=== PATIENT | female | born 1955 | race Caucasian/White ===

== ENCOUNTER 2019-10-31 13:17 | Outpatient (CLI) | payer MEDICARE, SELFPAY ==
--- NOTE | 2019-10-31 13:19 | ECG_ITS ---
Measurements Intervals [place] Rate: 69 P: 47 NV: 172 QRS: 12 QRSD: 93 T: 57 QT: 392 QTc: 422 Interpretive Statements SINUS RHYTHM DELAYED PRECORDIAL R/S TRANSITION BASELINE ARTIFACT- I, II, III, AVR, AVL, AVF BORDERLINE ECG Electronically Signed On 10-31-2019 13:51:43 CDT by David Krause D.O.
[2019-10-31 13:36] LABS: Hematocrit 41.3 % (37.0-47.0)
[2019-10-31 13:49] LABS: Anion Gap 7 mmol/L (8-16); Blood Urea Nitrogen 12 mg/dL (7-17); Calcium 9.5 mg/dL (8.4-10.2); Carbon Dioxide 30 mmol/L (22-30); Chloride 99 mmol/L (98-107); Estimated Glomerular Filt Rate > 60; Glucose 135 mg/dL (65-105); Potassium 4.2 mmol/L (3.4-5.0); Sodium 136 mmol/L (137-145)
== END 2019-10-31 13:18 | disposition home or self-care (01) ==
PROVIDERS: Anesthesiology; PCP Internal Medicine; Visit Provider Obstetrics & Gynecology
DX: D64.9 Anemia, unspecified (principal); Z79.899 Other long term (current) drug therapy; Z72.0 Tobacco use; R94.31 Abnormal electrocardiogram [ECG] [EKG]
CPT/HCPCS: 36415; 80048; 85014; 85018; 93005

== ENCOUNTER 2019-11-02 00:32 | Outpatient (CLI) | payer MEDICARE, SELFPAY ==
[2019-11-02 19:29] LABS: SARS-CoV-2 RNA PCR Negative
== END 2019-11-02 00:33 | disposition home or self-care (01) ==
LOC: ANHCOVIDDT 00:32
PROVIDERS: PCP Internal Medicine; Visit Provider Obstetrics & Gynecology
DX: Z01.812 Encounter for preprocedural laboratory examination (principal); Z20.828 Contact with and (suspected) exposure to other viral communicable diseases
CPT/HCPCS: 87635; C9803; U0003

== ENCOUNTER 2019-11-05 00:45 | Day surgery (SDC) | payer MEDICARE, SELFPAY ==
[2019-10-29 15:20] VITALS: BMI 26.6
--- NOTE | 2019-11-04 09:58 | WPDANESEPPF ---
Anes - Initial Pre Proc Eval Procedure: Operation Date: 11/05/19 09:30 Proposed Procedures p Hysteroscopy with Biopsy of Endometrium, Polypectomy - Oliver Strickland MD Date/Time: 11/04/19 09:58 Surgeon: Oliver Strickland MD Pre Op Diagnosis: post menopausal bleeding Patient Data Age: 64 Gender: F Height: 1.63 m Weight: 70.31 kg Allergies Allergy/AdvReac Type Severity Reaction Status Date / Time codeine Allergy Unknown Itching Verified 11/05/19 07:39 Home Medications Medication Instructions Recorded Confirmed Type albuterol sulfate 2.5 mg INHALATION DIRECTED PRN 10/29/19 11/05/19 History alprazolam 1 mg PO QID PRN 10/29/19 11/05/19 History cholecalciferol (vitamin D3) 50 mcg PO DAILY 10/29/19 11/05/19 History [Vitamin D3] duloxetine 60 mg PO DAILY 10/29/19 11/05/19 History ferrous sulfate [iron] 325 mg PO DAILY 10/29/19 11/05/19 History furosemide [Lasix] 20 mg PO DAILY 10/29/19 11/05/19 History hydrocodone-acetaminophen 1 tablet PO QID 10/29/19 11/05/19 History lactase 1 - 2 tablet PO DIRECTED PRN 10/29/19 11/05/19 History levalbuterol tartrate 2 inh INHALATION DIRECTED PRN 10/29/19 11/05/19 History levothyroxine [Synthroid] 25 mcg PO DAILY 10/29/19 11/05/19 History linaclotide [Linzess] 145 mcg PO DAILY 10/29/19 11/05/19 History ondansetron HCl [Zofran] 4 mg PO Q6H PRN 10/29/19 11/05/19 History pramipexole 0.125 mg PO HS 10/29/19 11/05/19 History Patient hx anesthesia problems: none Family hx anesthesia problems: none [facility] Past Medical History Medical History (Updated 11/04/19 @ 09:58 by Zain Leslie DO) Anxiety Chronic, continuous use of opioids COPD (chronic obstructive pulmonary disease) Depression Fibromyalgia Hypothyroidism IBS (irritable bowel syndrome) Rheumatoid arthritis RLS (restless legs syndrome) Surgical History Surgical History (Updated 11/04/19 @ 09:58 by Zain Leslie DO) History of tubal ligation Family History Family History (Updated 11/10/17 @ 11:44 by DOCTOR UNKNOWN) Mother Family history of Parkinson's disease Sibling Family history of chronic obstructive pulmonary disease Social History Social History Smoking packs per day: 1.5 Smoking cigarettes per day: 30.0 Years smoked: 48 Smoking pack-years: 72.00 Smoking status: Current some day smoker Tobacco type: cigarettes Additional smoking assessment comments: QUIT SMOKING 4 YRS AGO, CURRENTLY USES VAPOR CIGAR[employer] Spiritual care concerns: No Anes - Eval Final PreProcedure Day of Procedure 11/04/19 09:58 Patient weight: overweight Heart: regular rate and rhythm Lungs: clear to auscultation and normal air movement Airway: Mallampati scale class II Neurological: alert and oriented Last oral intake: >/= 8 hours ASA classification: III Emergent: no Anesthetic plan: proceed Anesthesia type and monitoring: general GIVS and standard monitoring Informed Consent: The patient's anesthetic plan and its attendant risks and benefits were discussed with the patient/family/POA. Questions were solicited and answers provided to the satisfaction of the patient/family/POA.
[2019-11-05 07:32] VITALS: BP 134/75; PULSE 79; RESP 20; TEMP 36.1; O2SAT 98
[2019-11-05] MEDS: LACTATED RINGERS 1,000 ML 30 ML IV CONT ×2 (07:55→10:49)
--- NOTE | 2019-11-05 09:16 | WPDHPUPDATE1 ---
History and Physical Update Update Date/Time: 11/05/19 09:16 History and Physical has been reviewed, including an updated exam of the patient. There are NO changes in the patient's condition. Risks, benefits, and alternatives have been discussed and questions answered. Patient agrees to proceed with procedure.
[2019-11-05] MEDS: ceFAZolin 2 GM/D5W 50 ML 2 GM/50 ML BAG IVPB (09:31)
--- NOTE | 2019-11-05 10:45 | SUR.OPER ---
EBL 25 ml (hysteroscopy- 900 ml of NS in 800 ml of NS out)
[2019-11-05 10:55] VITALS: BP 156/83; PULSE 83; RESP 22; TEMP 36.1; O2SAT 100
--- NOTE | 2019-11-05 11:04 | PM.PROC ---
Procedure Note - Detailed Date of procedure: 11/05/19 Pre-op diagnosis: post menopausal bleeding abnormal endometrium Post-op diagnosis: other ( hematometra) Procedure performed: Hysteroscopy D&C, adhesiolysis-45 minutes Description of procedure: The patient was taken the operating room. She was prepped and draped in the dorsal lithotomy position after induction of mac anesthesia. A speculum was placed in the vagina. The cervix grasped with a tenaculum. Extensive adhesiolysis was performed along the surface of the vaginal apex and the cervix. It was performed with Metzenbaum scissors. Stay sutures were placed in the vaginal cuff to make this cervix more accessible. Dissection was performed around the palpable cervix and the cervix was isolated. The cervix was then bifurcated partially. The hysteroscope was inserted the intrauterine cavity and the above findings were noted. A medium-size curette was then used to curettage all surfaces within the endometrial cavity. The endometrial curettings were collected on a Telfa. There were submitted to the pathology department. Hysteroscope was reinserted the intrauterine cavity to re-examine the endometrial surfaces. The hysteroscope was withdrawn. The tenaculum was removed. The speculum was removed. The patient tolerated the procedure well. She was taken recovery room stable condition. Sponge lap needle counts were correct x2. Anesthesia: MAC Surgeon: Oliver Strickland MD Estimated blood loss (mL): 25 Drains: No Packing: No Pathology: yes Complications: No immediate complications Condition: stable Disposition: PACU Findings: dense scarring over the surface of the cervix and vaginal apex. , normal appearing endometrial cavity, hematometra
[2019-11-05 11:10] VITALS: BP 159/75; PULSE 69; RESP 12; O2SAT 100
[2019-11-05 11:25] VITALS: BP 150/83; PULSE 61; RESP 12; O2SAT 98
[2019-11-05 11:50] VITALS: BP 147/66; PULSE 74; RESP 14
[2019-11-05 12:20] VITALS: BP 145/69; PULSE 75; RESP 14
== END 2019-11-05 12:26 | disposition home or self-care (01) ==
PROVIDERS: PCP Internal Medicine; Visit Provider Obstetrics & Gynecology
PROC: 0U5B8ZZ Destruction of Endometrium, Via Natural or Artificial Opening Endoscopic (ICD-10-PCS; CPT 58563; principal; 2019-11-05 09:30)
DX: N95.0 Postmenopausal bleeding (principal); N73.6 Female pelvic peritoneal adhesions (postinfective); M06.9 Rheumatoid arthritis, unspecified; M85.80 Other specified disorders of bone density and structure, unspecified site; F41.9 Anxiety disorder, unspecified
CPT/HCPCS: 58558; 88305; A9270; J0330; J0690; J1100; J2250; J2405; J2704; J2765; J3010; J7030; J7120

== ENCOUNTER 2019-12-16 06:53 | Outpatient (NON) | payer MEDICARE, SELFPAY ==
[2019-12-16 21:51] LABS: SARS-CoV-2 RNA PCR Negative
== END 2019-12-16 06:54 ==
PROVIDERS: PCP Internal Medicine
DX: Z20.828 Contact with and (suspected) exposure to other viral communicable diseases (principal)
CPT/HCPCS: 87635; C9803; U0003

== ENCOUNTER 2020-01-20 06:55 | Outpatient (NON) | payer MEDICARE, SELFPAY ==
[2020-01-21 01:07] LABS: SARS-CoV-2 RNA PCR Negative
== END 2020-01-20 06:56 ==
LOC: ANHCOVIDDT 06:58
PROVIDERS: PCP Internal Medicine; Visit Provider Orthopaedic Surgery
DX: Z01.818 Encounter for other preprocedural examination (principal); Z20.828 Contact with and (suspected) exposure to other viral communicable diseases
CPT/HCPCS: 87635; C9803; U0003

== ENCOUNTER 2020-02-20 08:15 | Outpatient (CLI) | payer MEDICARE, SELFPAY ==
--- NOTE | 2020-02-20 11:30 | NEURO_ITS ---
Impression: # Complains of pain in feet. Not diabetic. # Normal nerve conduction study with symmetrical distal latencies. # Normal needle/EMG exam. # Clinical correlation recommended. Nerve Conduction Studies Anti Sensory Summary Table Stim Site NR Peak (ms) P-T Amp (?V) Site1 Site2 Delta-P (ms) Dist (cm) Oumar (m/s) Left Sup Fibular Anti Sensory (Ant Lat Mall) 14 cm 3.9 6.5 14 cm Ant Lat Mall 3.9 16.0 41 Right Sup Fibular Anti Sensory (Ant Lat Mall) 14 cm 3.2 17.3 14 cm Ant Lat Mall 3.2 16.0 50 Left Sural Anti Sensory (Lat Mall) Calf 3.7 18.3 Calf Lat Mall 3.7 16.0 43 Right Sural Anti Sensory (Lat Mall) Calf 4.0 9.3 Calf Lat Mall 4.0 17.0 43 Motor Summary Table Stim Site NR Onset (ms) O-P Amp (mV) Site1 Site2 Delta-0 (ms) Dist (cm) Oumar (m/s) Left Peroneal Motor (Vastus Med) Ankle 4.9 2.0 Popit Ankle 8.3 37.0 45 Popit 13.2 0.9 Right Peroneal Motor (Vastus Med) Ankle 4.6 3.6 Popit Ankle 8.6 38.0 44 Popit 13.2 2.3 Left Tibial Motor (Abd Hilario Brev) Ankle 4.1 0.5 Knee Ankle 8.7 39.0 45 Knee 12.8 1.6 Right Tibial Motor (Abd Hilario Brev) Ankle 4.2 3.7 Knee Ankle 8.9 39.0 44 Knee 13.1 2.2 F Wave Studies NR F-Lat (ms) L-R F-Lat (ms) Left Peroneal (Mrkrs) (EDB) 51.85 0.66 Right Peroneal (Mrkrs) (EDB) 52.50 0.66 Left Tibial (Mrkrs) (Abd Hallucis) 53.89 0.76 Right Tibial (Mrkrs) (Abd Hallucis) 53.13 0.76 EMG Side Muscle Nerve Root Ins Act Fibs Amp Dur Recrt Comment Right AntTibialis Dp Br Fibular L4-5 Nml Nml Nml Nml Nml Right Gastroc Tibial S1-2 Nml Nml Nml Nml Nml Right Fibularis Long Sup Br Fibular L5-S1 Nml Nml Nml Nml Nml Right Flex Dig Long Tibial L5-S2 Nml Nml Nml Nml Nml Right Ext Dig Brev Dp Br Fibular L5, S1 Nml Nml Nml Nml Nml Left AntTibialis Dp Br Fibular L4-5 Nml Nml Nml Nml Nml Left Gastroc Tibial S1-2 Nml Nml Nml Nml Nml Left Fibularis Long Sup Br Fibular L5-S1 Nml Nml Nml Nml Nml Left Flex Dig Long Tibial L5-S2 Nml Nml Nml Nml Nml Left Ext Dig Brev Dp Br Fibular L5, S1 Nml Nml Nml Nml Nml MTDD
== END 2020-02-20 08:16 | disposition home or self-care (01) ==
LOC: ANHNEURO 08:17
PROVIDERS: PCP Internal Medicine; Visit Provider Psychiatry & Neurology Neurology
DX: G25.81 Restless legs syndrome (principal); M54.9 Dorsalgia, unspecified
CPT/HCPCS: 95886; 95910

== ENCOUNTER 2020-05-06 15:24 | Outpatient (CLI) | payer MEDICARE, SELFPAY ==
[2020-05-06 18:57] LABS: Iron 82 ug/dL (37-170)
== END 2020-05-06 15:25 | disposition home or self-care (01) ==
PROVIDERS: PCP Internal Medicine
DX: E61.1 Iron deficiency (principal); Z87.891 Personal history of nicotine dependence
CPT/HCPCS: 36415; 83540

== ENCOUNTER → 2020-12-29 04:31 | Outpatient (CLI) | payer MEDICARE, SELFPAY ==
[2020-12-30 19:26] LABS: SARS-CoV-2 RNA PCR Negative
== END ==
PROVIDERS: PCP Internal Medicine; Visit Provider Internal Medicine
DX: R05.9 Cough, unspecified (principal); Z20.822 Contact with and (suspected) exposure to COVID-19
CPT/HCPCS: C9803; U0003; U0005

== ENCOUNTER → 2021-04-10 00:14 | Outpatient (CLI) | payer MEDICARE, SELFPAY ==
[2021-04-10 17:11] LABS: SARS-CoV-2 RNA PCR Negative
== END ==
PROVIDERS: PCP Internal Medicine; Visit Provider Internal Medicine Pulmonary Disease
DX: Z01.812 Encounter for preprocedural laboratory examination (principal); Z20.822 Contact with and (suspected) exposure to COVID-19
CPT/HCPCS: C9803; U0003; U0005

== ENCOUNTER 2021-08-13 10:07 | Outpatient (CLI) | payer MEDICARE, SELFPAY ==
--- NOTE | 2021-08-13 11:30 | NEURO_ITS ---
PATIENT NUMBER; [id number] IMPRESSION: # Known to have rheumatoid arthritisi developing muscle weakness. # Left Carpal tunnel syndrome. # Right ulnar neuropathy across the elbow. Nerve Conduction Studies Anti Sensory Summary Table Stim Site NR Peak (ms) P-T Amp (?V) Site1 Site2 Delta-P (ms) Dist (cm) Oumar (m/s) Left Median Anti Sensory (2-3nd Digit) Wrist 3.1 106.9 Wrist 2-3nd Digit 3.1 14.0 45 Wrist 3.1 19.1 Wrist 2-3nd Digit 3.1 14.0 45 Right Median Anti Sensory (2-3nd Digit) Wrist 3.1 118.2 Wrist 2-3nd Digit 3.1 14.0 45 Wrist 3.8 20.8 Wrist 2-3nd Digit 3.1 14.0 45 Left Radial Anti Sensory (Base 1st Digit) Wrist 2.0 23.2 Wrist Base 1st Digit 2.0 0.0 Right Radial Anti Sensory (Base 1st Digit) Wrist 2.7 14.2 Wrist Base 1st Digit 2.7 0.0 Left Ulnar Anti Sensory (5th Digit) Wrist 2.9 6.8 Wrist 5th Digit 2.9 14.0 48 Right Ulnar Anti Sensory (5th Digit) Wrist 2.3 42.0 Wrist 5th Digit 2.3 14.0 61 Motor Summary Table Stim Site NR Onset (ms) O-P Amp (mV) Site1 Site2 Delta-0 (ms) Dist (cm) Oumar (m/s) Left Median Motor (Abd Poll Brev) Wrist 4.7 1.5 Elbow Wrist 4.3 28.0 65 Elbow 9.0 1.5 Right Median Motor (Abd Poll Brev) Wrist 3.6 2.0 Elbow Wrist 4.1 27.0 66 Elbow 7.7 1.1 Left Ulnar Motor (Abd Dig Minimi) Wrist 2.5 4.4 A Elbow Wrist 4.8 28.0 58 A Elbow 7.3 4.0 Right Ulnar Motor (Abd Dig Minimi) Wrist 2.7 3.9 A Elbow Wrist 5.7 29.0 51 A Elbow 8.4 3.1 B Elbow Wrist 3.6 18.0 50 B Elbow 6.3 3.4 F Wave Studies NR F-Lat (ms) L-R F-Lat (ms) Left Median (Mrkrs) (Abd Poll Brev) 29.53 0.12 Right Median (Mrkrs) (Abd Poll Brev) 29.42 0.12 Left Ulnar (Mrkrs) (Abd Dig Min) 27.86 0.03 Right Ulnar (Mrkrs) (Abd Dig Min) 27.89 0.03 EMG Side Muscle Nerve Root Ins Act Fibs Amp Dur Recrt Comment Right 1stDorInt Ulnar C8-T1 Nml Nml Nml Nml Nml Right Ext Indicis Radial (Post Int) C7-8 Nml Nml Nml Nml Nml Right Ext Digitorum Radial (Post Int) C7-8 Nml Nml Nml Nml Nml Right BrachioRad Radial C5-6 Nml Nml Nml Nml Nml Right PronatorTeres Median C6-7 Nml Nml Nml Nml Nml Right Abd Poll Brev Median C8-T1 Nml Nml Nml Nml Nml Left 1stDorInt Ulnar C8-T1 Nml Nml Nml >12ms Reduced Left Ext Indicis Radial (Post Int) C7-8 Nml Nml Nml Nml Nml Left Ext Digitorum Radial (Post Int) C7-8 Nml Nml Nml Nml Nml Left BrachioRad Radial C5-6 Nml Nml Nml Nml Nml Left PronatorTeres Median C6-7 Nml Nml Nml Nml Nml Left Abd Poll Brev Median C8-T1 Nml Nml Nml >12ms Reduced MTDD
== END 2021-08-13 10:08 | disposition home or self-care (01) ==
LOC: ANHNEURO 10:08
PROVIDERS: PCP Internal Medicine; Visit Provider Internal Medicine
DX: R20.2 Paresthesia of skin (principal); G56.02 Carpal tunnel syndrome, left upper limb; G56.21 Lesion of ulnar nerve, right upper limb
CPT/HCPCS: 95886; 95911

== ENCOUNTER 2021-09-08 08:28 | Outpatient (CLI) | payer MEDICARE, SELFPAY ==
--- NOTE | ~2021-09-08 | NM_ITS ---
EXAM: NM gastric emptying study DATE: 09/08/2021 13:37 INDICATION: Nausea and vomiting TECHNIQUE: A gastric emptying study was performed using the methodology of Shreyas GRAHAM, et al. J Nucl Med 2007; 48:568-572. The patient was given a meal consisting of 2 scrambled eggs labeled with 0.874 mCi Tc-99m sulfur colloid, 2 slices of toast, two packages of jam, and approximately 120 mL of water . Simultaneous anterior and posterior 1-min images of the abdomen were obtained with the patient supi ne at multiple time points over a total period of 4 hours. The geometric mean of anterior and posteri or views was determined, and the percentage retention was calculated for each time point. COMPARISON: None. FINDINGS: Gastric retention of the radiotracer-labeled meal was 79%, 28%, and 2% at the 1-hour, 2-hour, and 4-h our time points, respectively. With this technique, apparent rapid gastric emptying is suggested by < 30% gastric retention at 1 hour. Delayed gastric emptying is defined by gastric retention of >90% at 1 hour, >60% retention at 2 hours, or >10% retention at 4 hours. IMPRESSION: 1. Normal gastric emptying. Reviewed, dictated and finalized at location A. IMPRESSION: 1. Normal gastric emptying.
== END 2021-09-08 08:29 | disposition home or self-care (01) ==
PROVIDERS: PCP Internal Medicine; Visit Provider Nurse Practitioner
DX: R11.2 Nausea with vomiting, unspecified (principal); R68.81 Early satiety; K59.09 Other constipation; R14.0 Abdominal distension (gaseous)
CPT/HCPCS: 78264; A9541

== ENCOUNTER 2021-09-15 01:04 | Day surgery (SDC) | payer MEDICARE, SELFPAY ==
[2021-09-03 10:00] VITALS: BMI 23.3
--- NOTE | 2021-09-14 15:01 | PM.HPGS ---
History of Present Illness History of Present Illness Consent: Risks, benefits, and alternatives have been discussed and questions answered. Patient agrees to proceed with procedure. Chief complaint: nausea, vomiting, early satiety Narrative: Alta Vargas is a 66 year old female ?who has a past medical history of rheumatoid arthritis, chronic pain syndrome, spinal stenosis, lung nodule (thought likely cancer-awaiting to be scheduled for lung biopsy), cholecystectomy, tubal ligation, IBS constipation predominant, COPD, hypothyroidism, and diabetes.? She states several months ago she began having intermittent nausea and vomiting and over the last several weeks that has progressively worsened.? She went to the ER at [facility] a few weeks ago. They did not give her diagnosis.? She is taking omeprazole 40 mg per day. She states they did a CT scan and the told that there was: Urine back up and a UTI which she was treated for.? She was having diarrhea but that has since resolved.? She is having nausea daily and vomiting a few times per week typically after eating.? She reports early satiety and postprandial bloating.? She states that she has lost about 50 lb in the last 6 months. Review of Systems Review of Systems: All systems reviewed & are unremarkable except as noted in HPI and below PMFSH Past Medical History Medical History Anxiety Bloating Chronic, continuous use of opioids COPD (chronic obstructive pulmonary disease) Depression Diabetes Early satiety Fibromyalgia Hypothyroidism IBS (irritable bowel syndrome) Nausea and vomiting Rheumatoid arthritis Rheumatoid arthritis RLS (restless legs syndrome) Surgical History Surgical History History of tubal ligation Hx of cholecystectomy Family History Family History Mother Family history of Parkinson's disease Sibling Family history of chronic obstructive pulmonary disease Social History Social History Smoking packs per day: 1.5 Smoking cigarettes per day: 30.0 Years smoked: 48 Smoking pack-years: 72.00 Smoking status: Former smoker Tobacco type: cigarettes and e-cigarettes/vaping Additional smoking assessment comments: quit smoking cigarettes 4 years ago, still vapes Alcohol intake: never Substance use: never Substance use type: does not use Living arrangements: with family Additional living arrangements comments: lives with daughter and grandson Spiritual care concerns: No Meds Home Medications and Allergies Home Medications Medication Instructions Recorded Confirmed Type albuterol sulfate 2.5 mg/3 mL 2.5 mg inhalation DIRECTED PRN 10/29/19 09/15/21 History (0.083 %) solution for nebulization Shortness Of Breath cholecalciferol (vitamin D3) 50 50 mcg PO DAILY 10/29/19 09/15/21 History mcg (2,000 unit) capsule (Vitamin D3) ferrous sulfate 325 mg (65 mg 325 mg PO DAILY 10/29/19 09/15/21 History iron) tablet (iron) ondansetron HCl 4 mg tablet 4 mg PO Q6H PRN Nausea 10/29/19 09/15/21 History (Zofran) alprazolam 1 mg tablet (Xanax) 1 mg PO TID PRN Anxiety 05/13/20 09/15/21 History duloxetine 60 mg capsule,delayed 60 mg PO DAILY 05/13/20 09/15/21 History release (Cymbalta) hydrocodone 7.5 mg-acetaminophen 1 tablet PO QHS PRN Pain 07/15/21 09/15/21 History 325 mg tablet levothyroxine 75 mcg tablet 75 mcg PO DAILY 07/15/21 09/15/21 History (Synthroid) pramipexole 0.125 mg tablet 0.125 mg PO HS 07/15/21 09/15/21 History omeprazole 40 mg capsule,delayed 40 mg PO DAILY #30 caps 08/30/21 09/15/21 Rx release Allergies Allergy/AdvReac Type Severity Reaction Status Date / Time codeine Allergy Unknown Itching Verified 09/15/21 10:44 Exam Const: General: alert Orientation/conscio
[2021-09-15 10:46] VITALS: BP 114/80; PULSE 72; RESP 18; TEMP 36.7; O2SAT 99
--- NOTE | 2021-09-15 10:46 | WPDANESEPPF ---
Anes - Initial Pre Proc Eval Procedure: Operation Date: 09/15/21 12:30 Proposed Procedures p Esophagogastroduodenoscopy - Ambrocio Bear MD Date/Time: 09/15/21 10:46 Surgeon: Ambrocio Bear MD Pre Op Diagnosis: nausea, vomiting, early satiety Patient Data Age: 66 Gender: F Height: 1.63 m Weight: 61.5 kg Allergies Allergy/AdvReac Type Severity Reaction Status Date / Time codeine Allergy Unknown Itching Verified 09/15/21 10:44 Home Medications Medication Instructions Recorded Confirmed Type albuterol sulfate 2.5 mg/3 mL 2.5 mg inhalation DIRECTED PRN 10/29/19 09/15/21 History (0.083 %) solution for nebulization Shortness Of Breath cholecalciferol (vitamin D3) 50 50 mcg PO DAILY 10/29/19 09/15/21 History mcg (2,000 unit) capsule (Vitamin D3) ferrous sulfate 325 mg (65 mg 325 mg PO DAILY 10/29/19 09/15/21 History iron) tablet (iron) ondansetron HCl 4 mg tablet 4 mg PO Q6H PRN Nausea 10/29/19 09/15/21 History (Zofran) alprazolam 1 mg tablet (Xanax) 1 mg PO TID PRN Anxiety 05/13/20 09/15/21 History duloxetine 60 mg capsule,delayed 60 mg PO DAILY 05/13/20 09/15/21 History release (Cymbalta) hydrocodone 7.5 mg-acetaminophen 1 tablet PO QHS PRN Pain 07/15/21 09/15/21 History 325 mg tablet levothyroxine 75 mcg tablet 75 mcg PO DAILY 07/15/21 09/15/21 History (Synthroid) pramipexole 0.125 mg tablet 0.125 mg PO HS 07/15/21 09/15/21 History omeprazole 40 mg capsule,delayed 40 mg PO DAILY #30 caps 08/30/21 09/15/21 Rx release Patient hx anesthesia problems: none Family hx anesthesia problems: none Results Review: All pre-operative results and documents have been reviewed as part of the pre-operative evaluation. REPLACED BY [facility] Past Medical History Medical History Anxiety Bloating Chronic, continuous use of opioids COPD (chronic obstructive pulmonary disease) Depression Diabetes Early satiety Fibromyalgia Hypothyroidism IBS (irritable bowel syndrome) Nausea and vomiting Rheumatoid arthritis Rheumatoid arthritis RLS (restless legs syndrome) Surgical History Surgical History History of tubal ligation Hx of cholecystectomy Family History Family History Mother Family history of Parkinson's disease Sibling Family history of chronic obstructive pulmonary disease Social History Social History Smoking packs per day: 1.5 Smoking cigarettes per day: 30.0 Years smoked: 48 Smoking pack-years: 72.00 Smoking status: Former smoker Tobacco type: cigarettes and e-cigarettes/vaping Additional smoking assessment comments: quit smoking cigarettes 4 years ago, still vapes Alcohol intake: never Substance use: never Substance use type: does not use Living arrangements: with family Additional living arrangements comments: lives with daughter and grandson Spiritual care concerns: No Anes - Eval Final PreProcedure Day of Procedure 09/15/21 10:46 Patient weight: normal Heart: regular rate and rhythm Lungs: decreased breath sounds Airway: Mallampati scale class II Neurological: alert and oriented Last oral intake: >/= 8 hours ASA classification: III Emergent: no Anesthetic plan: proceed Anesthesia type and monitoring: general GIVS and standard monitoring Results Review: All pre-operative results and documents have been reviewed as part of the pre-operative evaluation. Informed Consent: The patient's anesthetic plan and its attendant risks and benefits were discussed with the patient/family/POA. Questions were solicited and answers provided to the satisfaction of the patient/family/POA.
[2021-09-15] MEDS: LACTATED RINGERS 1,000 ML 150 ML IV CONT (10:57)
[2021-09-15] MEDS: BENZOCAINE (*SP) 60 ML SPRAY CAN (HURRICAINE) 1 SPRAY MUCOUS MEM (11:23)
[2021-09-15 11:32] VITALS: BP 104/81; PULSE 66; RESP 19; O2SAT 100
[2021-09-15 11:42] VITALS: BP 91/52; PULSE 71; RESP 19; O2SAT 100
[2021-09-15 11:52] VITALS: BP 112/64; PULSE 65; RESP 20; O2SAT 100
== END 2021-09-15 12:01 | disposition home or self-care (01) ==
PROVIDERS: PCP Internal Medicine; Visit Provider Internal Medicine Gastroenterology
PROC: 0DJ08ZZ Inspection of Upper Intestinal Tract, Via Natural or Artificial Opening Endoscopic (ICD-10-PCS; CPT 43235; principal; 2021-09-15 12:30)
DX: R11.2 Nausea with vomiting, unspecified (principal); K21.9 Gastro-esophageal reflux disease without esophagitis; K29.70 Gastritis, unspecified, without bleeding; R63.4 Abnormal weight loss; Z79.51 Long term (current) use of inhaled steroids; E03.9 Hypothyroidism, unspecified; F41.9 Anxiety disorder, unspecified; F32.A Depression, unspecified; J44.9 Chronic obstructive pulmonary disease, unspecified; E11.9 Type 2 diabetes mellitus without complications; M79.7 Fibromyalgia; K58.9 Irritable bowel syndrome, unspecified; M06.9 Rheumatoid arthritis, unspecified; G25.81 Restless legs syndrome; Z90.49 Acquired absence of other specified parts of digestive tract; Z87.891 Personal history of nicotine dependence
CPT/HCPCS: 43239; 87081; 88305; J2704; J7120

== ENCOUNTER 2021-11-02 09:36 | Outpatient (CLI) | payer MEDICARE, MEDICAID, SELFPAY ==
--- NOTE | ~2021-11-02 | XR_ITS ---
EXAMINATION: XR small bowel follow through DATE: 11/02/2021 12:17 INDICATION: Nausea, vomiting and diarrhea TECHNIQUE: Cable Testers Helper radiograph(s) of the abdomen was/were obtained. Oral contrast was administered, and sequential radiographs of the abdomen were obtained until oral contrast was noted to be in the proxi mal colon. Spot fluoroscopic images of the small bowel were obtained. Fluoroscopy exposure time was 1 .6 minutes. A total of 9 fluoroscopic images and 7 overhead radiographs were obtained. COMPARISON: None. FINDINGS: Normal bowel gas pattern with no dilated loops of bowel on the occupational health specialist radiograph. Transit time from th e stomach to proximal colon was approximately 90-120 minutes. There is normal caliber and mucosal fol d pattern throughout the small bowel. Terminal ileum is unable to be clearly distinguished on real-ti me fluoroscopy from the additional superimposed ileum in the right lower quadrant however no irregula r appearing bowel loops are identified at this location. No tethering or abnormal mass effect observe d upon the small bowel with real-time fluoroscopy. IMPRESSION: 1. Normal small bowel follow-through. Reviewed, dictated and finalized at location A.
== END 2021-11-02 09:37 | disposition home or self-care (01) ==
PROVIDERS: PCP Internal Medicine; Visit Provider Nurse Practitioner
DX: R11.2 Nausea with vomiting, unspecified (principal)
CPT/HCPCS: 74250

== ENCOUNTER 2022-04-18 10:52 | Outpatient (CLI) | payer MEDICARE, MEDICAID, SELFPAY ==
--- NOTE | ~2022-04-18 | US_ITS ---
Duplex Sonography of the left extremity: Indication: Swelling Findings: Sagittal and transverse B-mode images as well as color-flow imaging were performed on the l eft femoral and popliteal veins. B-mode examination was done without and with compression in the tra nsverse plane. There is good visualization of the common femoral, proximal profunda femoral, superfi cial femoral, greater saphenous, and popliteal veins. Normal flow was seen on color-flow imaging. No rmal compressibility was demonstrated. Posterior tibial and peroneal veins are also patent. Impression: No evidence of deep vein thrombosis involving the left lower extremity. Reviewed, dictated and finalized at location M. ON [facility] Impression: No evidence of deep vein thrombosis involving the left lower extremity.
== END 2022-04-18 10:53 | disposition home or self-care (01) ==
PROVIDERS: Visit Provider Orthopaedic Surgery
DX: R22.42 Localized swelling, mass and lump, left lower limb (principal)
CPT/HCPCS: 93971

== ENCOUNTER 2022-09-04 22:28 | Emergency (ER) | payer MEDICARE, MEDICAID, SELFPAY ==
--- NOTE | ~2022-09-04 | XR_ITS ---
Portable chest x-ray Comparison: 02/10/2016 Clinical History: Flank pain Findings: Lungs are clear, without focal consolidation or pleural effusion. Cardiomediastinal silho uette is stable. Bones and soft tissues are unremarkable. Impression: Clear lungs. Reviewed, dictated and finalized at location . Impression: Clear lungs.
--- NOTE | ~2022-09-04 | CT_ITS ---
Non-contrast CT scan of the Abdomen and Pelvis Clinical indication: Right flank pain Technique: 2.5 mm axial scans were obtained through the abdomen and pelvis without intravenous or or al contrast. Dose reduction technique was used on this scan by utilizing automated exposure control a nd iterative reconstruction technique. The dose-length product (DLP) was 403.90 mGy-cm. Findings: Images through the lung bases reveal no abnormalities. There is no evidence of renal or ureteral calculi. The kidneys and the ureters are nondilated. The liver, spleen, pancreas, and adrenals appear normal. Status post cholecystectomy. There are ather osclerotic calcifications of the aorta. There is no evidence of bowel obstruction. Normal appendix. Images through the pelvis were performed. There is no evidence of ascites or lymphadenopathy. Urinary bladder unremarkable. No adnexal mass seen. No ascites. L2 compression fracture noted. Impression: L2 compression fracture, somewhat age indeterminate. No other significant findings. Reviewed, dictated and finalized at [facility]. Impression: L2 compression fracture, somewhat age indeterminate. No other significant findings.
[2022-09-04 22:30] VITALS: BP 157/75; PULSE 84; RESP 19; TEMP 36.4; O2SAT 97
[2022-09-04 23:34] VITALS: BP 131/77; PULSE 72; RESP 14; TEMP 36.6; O2SAT 98
[2022-09-04] MEDS: SODIUM CHLORIDE 0.9% IV 1,000 ML 999 ML IV CONT (23:42)
[2022-09-04 23:57] LABS: Basophils Percent Auto 0.3 % (0.2-1.2); Eosinophils Absolute Auto 0.2 K/mm3 (0-0.3); Eosinophils Percent Auto 1.4 % (0-4.4); Hematocrit 35.7 % (37.0-47.0); Hemoglobin 10.7 g/dL (12.0-15.0); Immature Granulocyte Absolute 0.14 K/mm3 (0.00-0.031); Lymphocytes Absolute Auto 3.15 K/mm3 (0.9-3.2); Lymphocytes Percent Auto 23.2 % (18.3-44.2); Mean Corpuscular Hemoglobin 25.1 pg (26-34); Mean Corpuscular Volume 83.6 fl (80-100); Mean Platelet Volume 8.6 fl (7.4-10.4); Monocytes Absolute Auto 1.3 K/mm3 (0.1-0.6); Monocytes Percent Auto 9.6 % (2.6-8.5); Neutrophils Absolute Auto 8.7 K/mm3 (1.3-6.7); Neutrophils Percent Auto 64.5 % (45.5-73.1); Platelet Count Result 289 k/mm3 (150-375); Red Blood Count 4.27 M/mm3 (4.2-5.4); Red Cell Distribution Width 15.6 % (11.5-14.5); White Blood Count 13.6 K/mm3 (4.5-10.0)
--- NOTE | 2022-09-05 | ECG_ITS ---
Measurements Intervals [place] Rate: 67 P: 41 TN: 156 QRS: 7 QRSD: 93 T: 40 QT: 412 QTc: 435 Interpretive Statements SINUS RHYTHM WITH OCCASIONAL SUPRAVENTRICULAR PREMATURE COMPLEXES ABNORMAL ECG COMPARED TO ECG 10/31/2019 13:50:22 NO SIGNIFICANT CHANGES Electronically Signed On 09-05-2022 10:39:04 CDT by Serg English M.D.
[2022-09-05 00:05] LABS: Appearance Urine Clear (Clear); Bacteria Urine None Seen /hpf; Bilirubin Urine Negative (Negative); Blood Urine Trace (Negative); Color Urine Yellow (Yellow); Glucose Urine UA Negative (Negative); Ketones Urine Negative (Negative); Leukocyte Esterase Ur 1+ LEU/UL (Negative); Nitrate Urine Negative (Negative); Non Pathogenic Casts 0-2; Protein Urine Negative (Negative); RBC Urine 0-2 /hpf (0-2); Specific Grav Ur 1.012 (1.001-1.035); Squamous Epithelial Cell Urine None seen /hpf (Few); Urobilinogen Urine 0.2 mg/dL (<2.0); pH Urine 5.5 (5.0-9.0)
--- NOTE | 2022-09-05 00:10 | ED.GENADULT ---
HPI - General Adult General Chief complaint: Back Pain/Injury Stated complaint: rib pain Time Seen by Provider: 09/04/22 22:44 History of Present Illness HPI narrative: This is a 66-year-old female presenting with a chief complaint of abdominal/rib pain for the last 2 weeks. She says the along the top of her abdomen and circumferential. It is an achy/ spasming pain that comes and waves. It is 8 out 10 intensity. She has never experienced pain like this before. Is worse with movement. Exacerbating symptoms. No fever chills chest pain difficulty breathing, nausea vomiting or diarrhea. In fact patient is constipated. Patient takes 15 mg of morphine b.i.d., methadone 5 mg t.i.d., Motrin and Tylenol and Flexeril for pain which is not been helping. Patient was seen at an outside hospital 4 days ago and was discharged with Flexeril. Related Data Home Medications Medication Instructions Recorded Confirmed cholecalciferol (vitamin D3) 50 50 mcg PO DAILY 10/29/19 11/30/21 mcg (2,000 unit) capsule (Vitamin D3) duloxetine 60 mg capsule,delayed 60 mg PO DAILY 05/13/20 11/30/21 release (Cymbalta) hydrocodone 7.5 mg-acetaminophen 1 tablet PO QHS PRN Pain 07/15/21 11/30/21 325 mg tablet levothyroxine 75 mcg tablet 75 mcg PO DAILY 07/15/21 11/30/21 (Synthroid) cyanocobalamin (vitamin B-12) 100 mcg subcut WEEKLY 11/30/21 11/30/21 1,000 mcg/mL injection kit ([employer] EZ Use B-12) semaglutide 1 mg/dose (4 mg/3 mL) 1 mg subcut WEEKLY 11/30/21 11/30/21 subcutaneous pen injector (Ozempic) Allergies Allergy/AdvReac Type Severity Reaction Status Date / Time codeine Allergy Unknown Itching Verified 02/15/22 14:45 PMFSH Past Medical History Medical History Anxiety Bloating Chronic, continuous use of opioids COPD (chronic obstructive pulmonary disease) Depression Diabetes Early satiety Fibromyalgia Gastritis determined by endoscopy Hypothyroidism IBS (irritable bowel syndrome) Nausea and vomiting Nonerosive esophageal reflux disease Rheumatoid arthritis Rheumatoid arthritis RLS (restless legs syndrome) Surgical History Surgical History History of tubal ligation Hx of cholecystectomy Family History Family History Mother Family history of Parkinson's disease Sibling Family history of chronic obstructive pulmonary disease Social History Social History Smoking packs per day: 1.5 Smoking cigarettes per day: 30.0 Years smoked: 48 Smoking pack-years: 72.00 Smoking status: Former smoker Tobacco type: cigarettes and e-cigarettes/vaping Additional smoking assessment comments: quit smoking cigarettes 4 years ago, still vapes Alcohol intake: never Substance use: never Substance use type: does not use Current Housing: Decline to Answer Concerned About Future Housing: Decline to Answer Difficulty Paying Gas/Electric Bills: Decline to Answer Difficulty Paying for Meds: Decline to Answer Currently Unemployed: Decline to Answer Education: Decline to Answer Difficulty w/ Childcare or Family Care: Decline to Answer Living arrangements: with family Additional living arrangements comments: lives with daughter and grandson Spiritual care concerns: No Exam Narrative: APPEARANCE: No apparent distress. Patient is anxious but well-appearing Head: atraumatic. EYES: EOMI, NOSE: Atraumatic NECK: Trachea midline RESPIRATORY: No increased rate of breathing, clear to auscultation CARDIOVASCULAR: RRR, ABDOMINAL: abdomen is soft nontender with no guarding or rebound, no CVA tenderness MUSCULOSKELETAl: no reproducible tenderness on palpation over the ribcage back or chest NEURO: Alert. Moving 4/4 extremities SKIN:: Warm, dry. Normal color PSYCHIATRIC: Normal af
[2022-09-05] MEDS: METHYLNALTREXONE 12 MG/0.6 ML VIAL SUB-Q (00:20)
[2022-09-05 00:31] LABS: Add Urine Microscopic? YES
[2022-09-05 00:34] LABS: Alanine Aminotransferase 28 U/L (6-35); Albumin Level 3.6 g/dL (3.5-5.1); Alkaline Phosphatase 114 U/L (38-126); Anion Gap 0 mmol/L (8-16); Aspartate Amino Transferase 40 U/L (14-36); Bilirubin,Total 0.4 mg/dL (0.2-1.3); Blood Urea Nitrogen 15 mg/dL (7-17); Calcium 9.1 mg/dL (8.4-10.2); Carbon Dioxide 37 mmol/L (22-30); Chloride 100 mmol/L (98-107); Estimated CRCL calculation 47 ml/min; Estimated Glomerular Filt Rate > 60; Glucose 88 mg/dL (65-110); Lipase 62 U/L (23-300); Magnesium 2.2 mg/dL (1.6-2.3); Potassium 4.1 mmol/L (3.4-5.0); Sodium 137 mmol/L (137-145)
[2022-09-05 01:12] VITALS: BP 154/80; PULSE 81; RESP 13; TEMP 36.6; O2SAT 99
== END 2022-09-05 01:13 | disposition home or self-care (01) ==
PROVIDERS: Emergency Provider Emergency Medicine; PCP Family Medicine Sports Medicine
DX: K59.03 Drug induced constipation (principal); T40.2X5A Adverse effect of other opioids, initial encounter; N39.0 Urinary tract infection, site not specified; E11.9 Type 2 diabetes mellitus without complications; E03.9 Hypothyroidism, unspecified; Z87.891 Personal history of nicotine dependence
CPT/HCPCS: 36415; 71045; 74176; 80053; 81001; 83690; 83735; 85025; 87086; 93005; 96360; 96372; 99284; J2212; J7030

== ENCOUNTER 2022-11-14 11:36 | Emergency (ER) | payer MEDICARE, MEDICAID, SELFPAY ==
[2022-11-14 11:55] VITALS: BP 139/83; PULSE 86; RESP 16; TEMP 36.2; O2SAT 100
--- NOTE | 2022-11-14 12:16 | ED.URI ---
HPI - URI/Sore Throat General Chief Complaint: Upper Respiratory Infection Stated Complaint: cough,chest hurting, earache Time Seen by Provider: 11/14/22 12:10 Source: patient and RN notes reviewed Mode of arrival: ambulatory Limitations: no limitations History of Present Illness HPI Narrative: Patient presents today with a 4 day history of cough, bilateral ear pain, headache, sore throat. Denies shortness of breath or chest pain. History of COPD. States she has been using her rescue inhaler more frequently. She has not been using any kjqz-[id number] medication for her symptoms prior to arrival. She has not been vaccinated for COVID-19. Related Data Home Medications Medication Instructions Recorded Confirmed cholecalciferol (vitamin D3) 50 50 mcg PO DAILY 10/29/19 10/27/22 mcg (2,000 unit) capsule (Vitamin D3) duloxetine 60 mg capsule,delayed 60 mg PO DAILY 05/13/20 10/27/22 release (Cymbalta) levothyroxine 75 mcg tablet 75 mcg PO DAILY 07/15/21 10/27/22 (Synthroid) alendronate 70 mg tablet (Fosamax) 70 mg PO WEEKLY 10/27/22 10/27/22 morphine 15 mg immediate release 15 mg PO Q12H 10/27/22 10/27/22 tablet tramadol 50 mg tablet 50 mg PO Q6H 10/27/22 10/27/22 Allergies Allergy/AdvReac Type Severity Reaction Status Date / Time codeine Allergy Unknown Itching Verified 11/14/22 12:19 Review of Systems Review of Systems: CONSTITUTIONAL: Denies body aches, fever, chills, or sweats. EYES: Denies visual changes, redness, or discharge. ENT: Denies rhinorrhea, congestion.+ sore throat, ear pain CARDIOVASCULAR: Denies chest pain, palpitations, or edema. RESPIRATORY: Denies dyspnea.+ cough GASTROINTESTINAL: Denies abdominal pain, nausea, vomiting, or diarrhea. GENITOURINARY: Denies dysuria or hematuria. SKIN: Denies rash, itching, or wounds. MUSCULOSKELETAL: Denies back pain, joint pain, or myalgia. NEUROLOGIC: Denies numbness, tingling, or weakness.+ headache PSYCH: Denies depression or anxiety. [facility] Past Medical History Medical History Anxiety Bloating Chronic, continuous use of opioids COPD (chronic obstructive pulmonary disease) Depression Diabetes Early satiety Fibromyalgia Gastritis determined by endoscopy Hypothyroidism IBS (irritable bowel syndrome) Nausea and vomiting Nonerosive esophageal reflux disease Rheumatoid arthritis Rheumatoid arthritis RLS (restless legs syndrome) Surgical History Surgical History History of tubal ligation Hx of cholecystectomy Family History Family History Mother Family history of Parkinson's disease Sibling Family history of chronic obstructive pulmonary disease Social History Social History Social History: Caffeine-tea/soda Smoking packs per day: 1.5 Smoking cigarettes per day: 30.0 Years smoked: 48 Smoking pack-years: 72.00 Smoking status: Former smoker Tobacco type: cigarettes and e-cigarettes/vaping Additional smoking assessment comments: quit smoking cigarettes 4 years ago, still vapes Alcohol intake: never Substance use: never Substance use type: does not use Lack of Transportation: No Lack of Food: Never True Current Housing: I Have Housing Concerned About Future Housing: No Difficulty Paying Gas/Electric Bills: No Difficulty Paying for Meds: No Currently Unemployed: No Education: High School Diploma/GED Difficulty w/ Childcare or Family Care: No Living arrangements: with family Additional living arrangements comments: lives with daughter and grandson Spiritual care concerns: No Comments At time of signature, I have reviewed and agree with nursing past medical, surgical, social and family history unless otherwise noted. Please see nursing chart for
== END 2022-11-14 12:35 | disposition home or self-care (01) ==
PROVIDERS: Emergency Provider Nurse Practitioner; PCP Family Medicine Sports Medicine
DX: U07.1 COVID-19 (principal); F17.290 Nicotine dependence, other tobacco product, uncomplicated; J44.9 Chronic obstructive pulmonary disease, unspecified; E11.9 Type 2 diabetes mellitus without complications; M79.7 Fibromyalgia; E03.9 Hypothyroidism, unspecified; M06.9 Rheumatoid arthritis, unspecified; G25.81 Restless legs syndrome; F41.9 Anxiety disorder, unspecified; F32.A Depression, unspecified
CPT/HCPCS: 87426; 87804; 99213; C9803; G0463

== ENCOUNTER 2023-05-11 15:48 | Outpatient (CLI) | payer MEDICARE, MEDICAID, SELFPAY ==
[2023-05-11 16:25] LABS: Basophils Percent Auto 0.3 % (0.2-1.2); Eosinophils Absolute Auto 0.2 K/mm3 (0-0.3); Eosinophils Percent Auto 1.4 % (0-4.4); Hematocrit 35.6 % (37.0-47.0); Hemoglobin 10.5 g/dL (12.0-15.0); Immature Granulocyte Absolute 0.22 K/mm3 (0.00-0.031); Immature Granulocyte Percent A 1.6 % (0-0.5); Lymphocytes Absolute Auto 2.17 K/mm3 (0.9-3.2); Mean Corpuscular HGB Conc 29.5 g/dl (32-36); Mean Corpuscular Hemoglobin 24.1 pg (26-34); Mean Corpuscular Volume 81.7 fl (80-100); Mean Platelet Volume 9.3 fl (7.4-10.4); Monocytes Percent Auto 14.9 % (2.6-8.5); Neutrophils Absolute Auto 8.9 K/mm3 (1.3-6.7); Neutrophils Percent Auto 65.8 % (45.5-73.1); Platelet Count Result 259 k/mm3 (150-375); Red Blood Count 4.36 M/mm3 (4.2-5.4); Red Cell Distribution Width 18.9 % (11.5-14.5); White Blood Count 13.6 K/mm3 (4.5-10.0)
[2023-05-11 16:31] LABS: Alanine Aminotransferase 24 U/L (6-35); Albumin Level 3.7 g/dL (3.5-5.1); Alkaline Phosphatase 109 U/L (38-126); Anion Gap 1 mmol/L (8-16); Aspartate Amino Transferase 26 U/L (14-36); Bilirubin,Total 0.5 mg/dL (0.2-1.3); Blood Urea Nitrogen 13 mg/dL (7-17); Carbon Dioxide 33 mmol/L (22-30); Chloride 100 mmol/L (98-107); Estimated Glomerular Filt Rate > 60; Glucose 102 mg/dL (65-110); Potassium 3.6 mmol/L (3.4-5.0); Sodium 134 mmol/L (137-145)
[2023-05-11 16:35] LABS: Hypochromasia 1+ (NORMAL); Platelet Estimate Adequate (Adequate)
[2023-05-11 16:36] LABS: Anisocytosis 1+ (NORMAL); Ovalocytes 1+ (NORMAL); Schistocytes None Seen (NORMAL)
[2023-05-11 17:01] LABS: Thyroid Stimulating Hormone 0.696 uIU/mL (0.465-4.680)
== END 2023-05-11 15:49 | disposition home or self-care (01) ==
LOC: ANHLAB 15:54
PROVIDERS: PCP Family Medicine; Visit Provider Family Medicine
DX: I10 Essential (primary) hypertension (principal); E03.9 Hypothyroidism, unspecified
CPT/HCPCS: 36415; 80053; 84439; 84443; 85025

== ENCOUNTER 2023-07-05 08:45 | Outpatient (CLI) | payer MEDICARE, MEDICAID, SELFPAY ==
[2023-07-12 19:31] VITALS: BMI 23.1
--- NOTE | 2023-07-12 19:31 | WPDSLEEPSTUD ---
Sleep Study Date of Study: 07/05/23 Ordering Provider: Cal Bonilla MD Interpreting Physician: Kassy Churchill DO Sleep Study Type: Polysomnogram Height: 1.63 m Weight: 61.235 kg Body Mass Index: 23.1 Neck Circumference (inches): 15 [place]: 16 Reason for Sleep Study Nocturnal gasping Sleep History The patient is a 67-year-old female with pulmonary nodules, anxiety, COPD, depression, diabetes, fibromyalgia, hypothyroidism, IBS, rheumatoid arthritis, restless leg syndrome,spinal stenosis and history of tobacco use that had a sleep study ordered by her divisional storekeeper for evaluation of sleep apnea. The patient frequently awakens from sleep short of breath. She occasionally awakens at night with heartburn, belching or cough. She occasionally snores. She frequently wakes up gasping for air throughout the night. She frequently has trouble sleeping when she has a cold. She frequently has breathing problems at night observed by herself or others. She occasionally sweats excessively at night. She rarely has heart palpitations or irregular heartbeats during the night. She frequently falls asleep during the day but never while driving. She denies sleep paralysis and cataplexy. She denies having trouble at school or work due to sleepiness. She rarely experiences vivid dreamlike scenes upon awakening or falling asleep. She denies feeling afraid of going to sleep. She rarely has nightmares. She rarely remembers her dreams. She occasionally has thoughts racing through her mind. She occasionally feels sad, depressed and anxious. She frequently has muscular tension. She frequently notices parts of her body jerk. She occasionally kicks during the night. She frequently has crawling and aching feelings in her legs and occasionally has leg pain during the night. She denies grinding her teeth during sleep but occasionally awakens with morning jaw pain. She is constantly bothered by pain during the day and frequently awakened by pain during the night. She constantly wakes up feeling stiff in the morning. She constantly wakes up with sore or achy muscles. She constantly wakes up with pain in the neck, spine and other joints. She goes to bed at 10:00 p.m. on both weekdays and weekends. It takes her 5 minutes to fall asleep. She wakes up 4 times throughout the night to urinate and is able to fall back asleep within 5 minutes. She typically gets 8-10 hours of sleep per night. She will stay in bed for 1 hour after waking up in the morning. She currently lives with her [id number]-erb, daughter and grandson. She will consume caffeinated beverages within 2 hours of bedtime. She denies engaging in physical exercise before bedtime. She will read before falling asleep. She denies watching television before falling asleep. She will take afternoon naps and they are refreshing. She consumes 3 caffeinated beverages per day. She is a former smoker. [facility] Past Medical History Medical History (Updated 07/12/23 @ 19:40 by Kassy Churchill, ) Abnormal urine finding Anxiety Arthralgia of both hands Bloating Chronic constipation Chronic nausea Chronic, continuous use of opioids Colon cancer screening COPD (chronic obstructive pulmonary disease) COVID-19 Depression Diabetes Diverticulosis of colon Early satiety Encounter for medication management Fibromyalgia Fibromyalgia Follicular bronchiolitis Gastritis Gastritis determined by endoscopy Hypothyroidism IBS (irritable bowel syndrome) Idiopathic hematuria Nausea and vomiting Nonerosive esophageal reflux disease Other irritable bowel syndrome Pain in joints Rheumatoid arthritis Rheumatoid arthritis Rib pain on right side RLS (restless legs syndrome) RUQ abdominal pain Seropositive rheumatoid arthritis of multiple joints Spinal stenosis at L4-L5 level Superficial gastritis without hemorrhage TMJ dysfunction Surgical History Surgical History (Reviewed 07/12/23 @ 19:33 by Amos
== END 2023-07-06 06:45 | disposition home or self-care (01) ==
LOC: ANHCSM 08:46
PROVIDERS: PCP Family Medicine; Visit Provider Internal Medicine Pulmonary Disease
DX: G47.10 Hypersomnia, unspecified (principal); G25.81 Restless legs syndrome
CPT/HCPCS: 95810

== ENCOUNTER 2023-07-07 12:37 | Outpatient (CLI) | payer MEDICARE, MEDICAID, SELFPAY ==
--- NOTE | 2023-07-07 15:53 | WPDPFTINT ---
PFT Procedure Performed PFT Procedure Performed Spirometry with Pre/Post Bronchodilator Plethysmography (Lung Vol) Diffusing Cap (DLCO) Flow Vol Loop PFT Interpretation This is a pulmonary function test with pre and post-bronchodilator spirometry, plethysmography and diffusing capacity. The test was performed and results interpreted in accordance with the 2019 and 2005 ATS/ERS Task Force guidelines respectively using the Global Lung Function Initiative-2012 reference equations. Patient demonstrated good effort and cooperation. Reproducibility criteria were met. The quality of the pre bronchodilator spirometry maneuver was Grade A and post bronchodilator spirometry maneuver was Grade A. Findings: Spirometry: There is decreased maximal expiratory airflow at all lung volumes with concave expiratory flow tracing. The contour the inspiratory flow tracing is normal. The pre bronchodilator FVC is 1.58 L, 53% predicted. The pre bronchodilator FEV1 is 1.96 L, 41% predicted. The pre bronchodilator FEV1: FVC ratio 61%. The post bronchodilator FVC is 1.94 L, representing a 23% increase. The post bronchodilator FEV1 is 1.25 L, representing a 30% increase. The post bronchodilator FEV1: FVC ratio is 64%. Plethysmography: The total lung capacity is 4.09 L, 81% predicted. The functional residual capacity is 2.50 L, 86% predicted. The residual volume is 2.17 L, 102% predicted. The residual volume: Total lung capacity ratio is 53%. Diffusing capacity: Diffusing capacity unadjusted for hemoglobin and carboxyhemoglobin is 11.3, 54% predicted. The diffusing capacity adjusted for alveolar volume is 3.78, 87% predicted. In comparison to spirometry report from [facility] on 10/21/2022 in which only pre bronchodilator spirometry was performed, the pre bronchodilator FVC is unchanged from 1.69 L to 1.58 L. the pre bronchodilator FEV1 is decreased from 1.19 L to 0.96 L. No lung volumes were given. The DLCO unadjusted for hemoglobin and carboxyhemoglobin is decreased from 17.5 to 11.3. The diffusing capacity adjusted for alveolar volume is decreased from 5.1 to 3.78. Impression: There is a moderately severe obstructive abnormality. There is significant improvement after inhaling a single dose of albuterol. The increase in residual volume to total lung volume ratio is consistent with hyperinflation from an obstructive abnormality. The diffusing capacity unadjusted for hemoglobin and carboxyhemoglobin is moderately decreased and normalizes when adjusted for alveolar volume. In comparison to PFTs from [facility] on 10/21/2022 there has been a greater than anticipated time dependent decrease in the FEV1 and diffusing capacity with no significant change in the FVC. Clinical correlation is recommended.
== END 2023-07-07 12:38 | disposition home or self-care (01) ==
LOC: ANHPFT 12:40
PROVIDERS: PCP Family Medicine; Visit Provider Internal Medicine Pulmonary Disease
DX: R06.02 Shortness of breath (principal); I26.99 Other pulmonary embolism without acute cor pulmonale; R94.2 Abnormal results of pulmonary function studies
CPT/HCPCS: 94060; 94726; 94729

== ENCOUNTER 2023-07-10 13:11 | Outpatient (CLI) | payer MEDICARE, SELFPAY | END 2023-07-10 13:12 | disposition home or self-care (01) | LOC: ANHAUDIO 13:11 | PROVIDERS: PCP Family Medicine; Visit Provider Internal Medicine Endocrinology, Diabetes & Metabolism | DX: H90.3 Sensorineural hearing loss, bilateral (principal) | CPT/HCPCS: 92557; 92567 ==

== ENCOUNTER 2023-09-25 15:51 | Outpatient (CLI) | payer MEDICARE, MEDICAID, SELFPAY ==
[2023-09-25 16:10] LABS: Basophils Percent Auto 0.2 % (0.2-1.2); Eosinophils Absolute Auto 0.2 K/mm3 (0-0.3); Eosinophils Percent Auto 1.2 % (0-4.4); Hemoglobin 9.2 g/dL (12.0-15.0); Immature Granulocyte Percent A 0.6 % (0-0.5); Lymphocytes Absolute Auto 2.35 K/mm3 (0.9-3.2); Lymphocytes Percent Auto 14.3 % (18.3-44.2); Mean Corpuscular HGB Conc 27.1 g/dl (32-36); Mean Corpuscular Hemoglobin 20.6 pg (26-34); Mean Corpuscular Volume 76.1 fl (80-100); Mean Platelet Volume 8.3 fl (7.4-10.4); Monocytes Absolute Auto 1.6 K/mm3 (0.1-0.6); Monocytes Percent Auto 9.8 % (2.6-8.5); Neutrophils Absolute Auto 12.2 K/mm3 (1.3-6.7); Neutrophils Percent Auto 73.9 % (45.5-73.1); Platelet Count Result 594 k/mm3 (150-375); Red Blood Count 4.47 M/mm3 (4.2-5.4); Red Cell Distribution Width 18.9 % (11.5-14.5); White Blood Count 16.5 K/mm3 (4.5-10.0)
[2023-09-25 16:16] LABS: Hypochromasia 2+; Platelet Estimate Increased (Adequate); Schistocytes None Seen
[2023-09-25 16:17] LABS: Anisocytosis 1+; Microcytosis 1+ (NORMAL)
[2023-09-25 17:05] LABS: Iron 36 ug/dL (37-170)
[2023-09-25 17:08] LABS: Alanine Aminotransferase 35 U/L (6-35); Albumin Level 4.2 g/dL (3.5-5.1); Alkaline Phosphatase 106 U/L (38-126); Anion Gap 9 mmol/L (4-12); Aspartate Amino Transferase 33 U/L (14-36); Bilirubin,Total 0.3 mg/dL (0.2-1.3); Blood Urea Nitrogen 22 mg/dL (7-17); Calcium 9.3 mg/dL (8.4-10.2); Carbon Dioxide 31 mmol/L (22-30); Chloride 95 mmol/L (98-107); Estimated Glomerular Filt Rate > 60; Glucose 106 mg/dL (65-110); Lactate Dehydrogenase 158 U/L (120-246); Sodium 135 mmol/L (137-145)
[2023-09-25 17:15] LABS: Percent Iron Saturation 9 % (20-50)
[2023-09-25 23:33] LABS: Folic Acid 12.4 ng/mL (2.76->20)
[2023-09-28 09:29] LABS: Methylmalonic Acid 129 nmol/L (69-390)
[2023-09-29 14:43] LABS: Soluble Transferrin Receptor 3.82 mg/L (0.76-1.76)
== END 2023-09-25 15:52 | disposition home or self-care (01) ==
LOC: ANHLAB 15:54
PROVIDERS: PCP Internal Medicine; Visit Provider Internal Medicine Hematology & Oncology
DX: D64.9 Anemia, unspecified (principal)
CPT/HCPCS: 36415; 80053; 82607; 82728; 82746; 83540; 83550; 83615; 83921; 84238; 85025

== ENCOUNTER 2023-10-30 09:47 | Outpatient (CLI) | payer MEDICARE, SELFPAY ==
--- NOTE | ~2023-10-30 | CT_ITS ---
EXAMINATION:CT diagnostic chest wo con DATE: 10/30/2023 10:57 INDICATION: Solitary pulmonary nodule. TECHNIQUE: Computed tomography (CT) of the chest was performed without intravenous contrast. Automate d exposure control and iterative reconstruction technique were employed. The dose-length product (DLP ) was 103.30 mGy-cm. COMPARISON: Chest CT 09/07/2022, 05/01/23 FINDINGS: There is mild emphysema. There is mild atelectasis bilaterally. There are groundglass opaci ties with associated septal thickening in right upper lobe measuring 3.7 x 2.0 cm, stable from 023. There is an 8 mm nodule in superior segment left lower lobe near the aorta that measured 11 mm o n 08/06/2023. There are a few scattered nodules in the lungs measuring up to 3 mm, likely benign. Ther e is a 4 mm nodule in right upper lobe, stable from 05/01/23. No pleural effusion. The heart size is n ormal. No pericardial effusion. There is a 3.1 cm cyst in left kidney. There are multiple chronic valeria tebral body fractures. There are changes of vertebroplasty at L1. There is severe thoracic spondylosi s. IMPRESSION: 1. 8 mm left lower lobe pulmonary nodule with improvement from 11 mm on 08/06/2023 status post radiati on therapy. This finding is suspicious for primary bronchogenic carcinoma. 2. Mild emphysema. Reviewed, dictated and finalized at location A. IMPRESSION: 1. 8 mm left lower lobe pulmonary nodule with improvement from 11 mm on 08/06/19 24 status post radiation therapy. This finding is suspicious for primary bronch ogenic carcinoma. 2. Mild emphysema.
== END 2023-10-30 09:48 | disposition home or self-care (01) ==
PROVIDERS: PCP Internal Medicine; Visit Provider Internal Medicine Pulmonary Disease
DX: R91.1 Solitary pulmonary nodule (principal); J43.9 Emphysema, unspecified
CPT/HCPCS: 71250

== ENCOUNTER 2024-01-17 10:23 | Outpatient (CLI) | payer MEDICARE, MEDICAID, SELFPAY ==
--- NOTE | ~2024-01-17 | XR_ITS ---
3 VIEWS THORACIC SPINE Ordering provider: Felicitas Hickman, SEXUAL ASSAULT COUNSELLOR-C History: . BACK PAIN, THORACIC . Comparison: None. FINDINGS: VERTEBRAL BODIES: Multilevel loss of height suggestive of compression fractures seen in the mid thora cic area which may be acute or chronic. . No visible subluxation. Multilevel vertebroplasty. Kyphosis . MRI is advised to evaluate for acute compressions. DISK SPACES: Normal. SOFT TISSUES: Normal. IMPRESSION: Multiple compression fractures in the thoracic area which may be acute or chronic. MRI is advised Reviewed, dictated and finalized at location A. [employer]ACE [employer]KER IMPRESSION: Multiple compression fractures in the thoracic area which may be acute or chron ic. MRI is advised
== END 2024-01-17 10:24 | disposition home or self-care (01) ==
PROVIDERS: PCP Nurse Practitioner Family; Visit Provider Nurse Practitioner Family
DX: M54.6 Pain in thoracic spine (principal); S22.000A Wedge compression fracture of unspecified thoracic vertebra, initial encounter for closed fracture; X58.XXXA Exposure to other specified factors, initial encounter
CPT/HCPCS: 72070

== ENCOUNTER 2024-01-17 12:57 | Outpatient (CLI) | payer MEDICARE, MEDICAID, SELFPAY ==
--- NOTE | 2024-01-17 14:00 | NEURO_ITS ---
Impression: # Complains of numbness of legs. # Poor amplitude responses in motor and sensory nerves. # Needle/EMG exam without myotonia, fibrillations or neurogenic changes. # Findings suggestive of neuropathy. # Clinical correlation recommended. Nerve Conduction Studies Anti Sensory Summary Table Stim Site NR Peak (ms) P-T Amp (?V) Site1 Site2 Delta-P (ms) Dist (cm) Oumar (m/s) Left Sup Fibular Anti Sensory (Ant Lat Mall) 14 cm 3.3 8.2 14 cm Ant Lat Mall 3.3 16.0 48 Right Sup Fibular Anti Sensory (Ant Lat Mall) 14 cm 3.2 15.1 14 cm Ant Lat Mall 3.2 16.0 50 Left Sural Anti Sensory (Lat Mall) Calf 3.4 5.3 Calf Lat Mall 3.4 16.0 47 Right Sural Anti Sensory (Lat Mall) Calf 3.4 19.8 Calf Lat Mall 3.4 16.0 47 Motor Summary Table Stim Site NR Onset (ms) O-P Amp (mV) Site1 Site2 Delta-0 (ms) Dist (cm) Oumar (m/s) Left Peroneal Motor (Vastus Med) Ankle 4.3 0.8 Popit Ankle 8.3 39.0 47 Popit 12.6 0.8 Right Peroneal Motor (Vastus Med) Ankle 4.5 0.6 Popit Ankle 7.5 37.0 49 Popit 12.0 0.4 Left Tibial Motor (Abd Hilario Brev) Ankle 4.4 1.9 Knee Ankle 8.8 40.0 45 Knee 13.2 1.1 Right Tibial Motor (Abd Hilario Brev) Ankle 4.5 1.7 Knee Ankle 7.9 38.0 48 Knee 12.4 1.2 F Wave Studies NR F-Lat (ms) L-R F-Lat (ms) Left Peroneal (Mrkrs) (EDB) 51.23 0.82 Right Peroneal (Mrkrs) (EDB) 52.05 0.82 Left Tibial (Mrkrs) (Abd Hallucis) 52.97 0.94 Right Tibial (Mrkrs) (Abd Hallucis) 52.03 0.94 EMG Side Muscle Nerve Root Ins Act Fibs Amp Dur Recrt Comment Right AntTibialis Dp Br Fibular L4-5 Nml Nml Nml Nml Nml Right Gastroc Tibial S1-2 Nml Nml Nml Nml Nml Right Fibularis Long Sup Br Fibular L5-S1 Nml Nml Nml Nml Nml Right Flex Dig Long Tibial L5-S2 Nml Nml Nml Nml Nml Right Ext Dig Brev Dp Br Fibular L5, S1 Nml Nml Nml Nml Nml Right QuadratusFem QuadFemoris L4-5, S1 Nml Nml Nml Nml Nml Left AntTibialis Dp Br Fibular L4-5 Nml Nml Nml Nml Nml Left Gastroc Tibial S1-2 Nml Nml Nml Nml Nml Left Fibularis Long Sup Br Fibular L5-S1 Nml Nml Nml Nml Nml Left Flex Dig Long Tibial L5-S2 Nml Nml Nml Nml Nml Left Ext Dig Brev Dp Br Fibular L5, S1 Nml Nml Nml Nml Nml Left QuadratusFem QuadFemoris L4-5, S1 Nml Nml Nml Nml Nml MTDD
== END 2024-01-17 12:58 | disposition home or self-care (01) ==
LOC: ANHNEURO 12:59
PROVIDERS: PCP Nurse Practitioner Family; Visit Provider Podiatrist Foot & Ankle Surgery
DX: G60.9 Hereditary and idiopathic neuropathy, unspecified (principal)
CPT/HCPCS: 95886; 95910

== ENCOUNTER 2024-02-01 14:19 | Emergency (ER) | payer MEDICARE, SELFPAY ==
--- NOTE | ~2024-02-01 | XR_ITS ---
EXAMINATION: XR abdomen/kub 1V DATE: 02/01/2024 19:18 INDICATION: Abdominal pain. TECHNIQUE: A supine view of the abdomen on 2 radiographs was obtained. COMPARISON: Chest CT 10/30/2023 FINDINGS: There are no dilated loops of bowel. There is a large volume of stool in the colon. There a re changes of vertebroplasty at L1. IMPRESSION: 1. Nonobstructive bowel gas pattern. Reviewed, dictated and finalized at location A. 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
[2024-02-01 14:22] VITALS: BP 151/70; PULSE 107; RESP 20; TEMP 36.4; O2SAT 99
[2024-02-01 18:51] VITALS: BP 138/66; PULSE 93; RESP 18; TEMP 36.2; O2SAT 99
--- NOTE | 2024-02-01 19:08 | ED_ITS ---
HPI - Abdominal Pain General Chief Complaint: Abdominal Pain Stated Complaint: right flank pain Time Seen by Provider: 02/01/24 18:50 Focused HPI: Patient is a 68-year-old female who presents to the ER with a 3 day history of mid-back and L flank pain. She reports she hasn't had a bowel movement in 3-4 days. Patient reports she was at [facility] yesterday where they did a CT scan and didn't find anything. She reports she has a history of osteoporosis, COPD, rheumatoid arthritis, and Jeaneth's disease. Patient reports she takes MS15 BID and Tramadol every day for her chronic pain. She denies chest pain, shortness of breath, or urinary symptoms. GENERAL: Well-appearing, well-nourished, and in no acute distress. HEAD: Normocephalic, atraumatic. CHEST: Clear to auscultation. ?No respiratory distress. HEART: Tachycardia and regular rhythm.? NEURO: ?Alert and oriented x3. Patient screened in triage and initial orders placed.? ?Additional care and disposition to be based upon?diagnostic testing and treatment. Related Data Home Medications Medication Instructions Recorded Confirmed duloxetine 60 mg capsule,delayed 60 mg PO DAILY 05/13/20 01/30/24 release (Cymbalta) acetaminophen 325 mg capsule 325 mg PO Q6H PRN Pain (Scale 01/02/23 01/30/24 (Tylenol) Score 1-3) morphine 15 mg immediate release 15 mg PO Q8H PRN Pain (Scale Score 06/27/23 01/30/24 tablet 7-10) tramadol 50 mg tablet 50 mg PO Q6H 06/27/23 01/30/24 cyclobenzaprine 10 mg tablet 10 mg PO DAILY PRN 01/30/24 01/30/24 levofloxacin 500 mg tablet 500 mg PO DAILY 01/30/24 01/30/24 Allergies Allergy/AdvReac Type Severity Reaction Status Date / Time codeine Allergy Mild Itching Verified 01/30/24 13:32 PMFSH Past Medical History Medical History Abnormal urine finding Anemia Anxiety Arthralgia of both hands Bloating Chronic constipation Chronic nausea Chronic, continuous use of opioids Colon cancer screening COPD (chronic obstructive pulmonary disease) (Unknown) COVID-19 Depression Diabetes Diverticulosis of colon Early satiety Encounter for medication management Fibromyalgia Fibromyalgia Follicular bronchiolitis Gastritis Gastritis determined by endoscopy Hypothyroidism IBS (irritable bowel syndrome) Idiopathic hematuria Iron deficiency anemia Nausea and vomiting Nonerosive esophageal reflux disease Other irritable bowel syndrome Pain in joints Peripheral neuropathy Rheumatoid arthritis Rheumatoid arthritis Rib pain on right side RLS (restless legs syndrome) RUQ abdominal pain Seropositive rheumatoid arthritis of multiple joints Spinal stenosis at L4-L5 level Superficial gastritis without hemorrhage TMJ dysfunction Surgical History Surgical History History of bunionectomy of both great toes History of tubal ligation Hx of cholecystectomy Family History Family History Mother Family history of Parkinson's disease Sibling Family history of chronic obstructive pulmonary disease Liver cancer Father , natural causes No problems noted. Sibling No problems noted. Social History Social History Social History: Smoking packs per day: 1.5 Smoking cigarettes per day: 30.0 Years smoked: 48 Smoking pack-years: 72.00 Smoking status: Former smoker Tobacco type: cigarettes Second hand tobacco smoke exposure: No Additional smoking assessment comments: quit smoking cigarettes 4 years ago, still vapes Alcohol intake: never Substance use: current Substance use type: marijuana Other substance usage details: Has medical card Do You Feel Safe in your Home?: Yes Lack of Transportation: No Lack of Food: Never True Current Housing: I Have Housing Concerned About Future Housing: No Difficulty Paying Gas/Electric Bills: No Difficulty Paying for Meds: No Currently Unemployed: No Education: High School Diploma/GED Difficulty w/ Childcare or Family Care: No Living arrangements: alone 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 Gender identity (if verbalized by the patient): Female Sexual Orientation (if Verbalized by the Patient): Straight or Heterosexual Spiritual care concerns: No Course Vital Signs Vital signs: Vital Signs Temperature 36.4 C 02/01/24 14:22 Pulse Rate 107 H 02/01/24 14:22 Respiratory Rate 20 02/01/24 14:22 Blood Pressure 151/70 H 02/01/24 14:22 Pulse Oximetry 99 02/01/24 14:22 Oxygen Delivery Room Air 02/01/24 14:22 Temperature 36.2 C L 02/01/24 18:51 Pulse Rate 93 02/01/24 18:51 Respiratory Rate 18 02/01/24 18:51 Blood Pressure 138/66 02/01/24 18:51 Pulse Oximetry 99 02/01/24 18:51 Oxygen Delivery Room Air 02/01/24 14:22 MDM - Abdominal Pain Imaging Data Radiologist's impression: ITS Impressions Abdomen X-Ray 02/01/24 19:20 IMPRESSION: 1. Nonobstructive bowel gas pattern. Discharge Plan Discharge Clinical Impression: Chronic back pain Patient Disposition: Home, Self-Care Condition: Improved Additional Instructions: Return if symptoms are worsening , call your family physician for appointment, take Tylenol as as needed for aches and pain, continue home medications. Prescriptions: No Action levothyroxine [Synthroid] 88 mcg tablet 88 mcg PO DAILY Qty: 90 1RF levofloxacin 500 mg tablet 500 mg PO DAILY cyclobenzaprine 10 mg tablet 10 mg PO DAILY PRN albuterol sulfate 2.5 mg /3 mL (0.083 %) solution for nebulization 2.5 mg inhalation Q4-6H PRN (Reason: shortness of breath or wheezing) Qty: 90 3RF pramipexole 0.25 mg tablet 0.25 mg PO TID Qty: 90 6RF Rx Instructions: May be taken as 1 tablet in the morning and 2 tablets at bedtime duloxetine [Cymbalta] 60 mg capsule,delayed release(DR/EC) 60 mg PO DAILY acetaminophen [Tylenol] 325 mg capsule 325 mg PO Q6H PRN (Reason: Pain (Scale Score 1-3)) morphine 15 mg tablet 15 mg PO Q8H PRN (Reason: Pain (Scale Score 7-10)) tramadol 50 mg tablet 50 mg PO Q6H tiotropium-olodaterol 2.5-2.5 mcg/actuation mist 2 puff inhalation DAILY Qty: 4 3RF famotidine [Pepcid] 20 mg tablet 20 mg PO DAILY Qty: 90 3RF albuterol sulfate 90 mcg/actuation HFA aerosol inhaler 2 inh inhalation Q4H PRN (Reason: shortness of breath or wheezing) Qty: 8.5 6RF Follow-up/Referrals: Vick,JACKLYN PolkP-C [Primary Care Provider] -
--- NOTE | 2024-02-01 19:42 | ED.ABDPAIN ---
HPI - Abdominal Pain General Chief Complaint: Abdominal Pain Stated Complaint: right flank pain Time Seen by Provider: 02/01/24 18:50 Source: patient Mode of arrival: ambulatory Limitations: no limitations History of Present Illness HPI narrative: 68 years old white female came from home by private car complaining of mid back pain radiating to both sides mainly the right side. She denies any fever, chills, nausea, vomiting, abdominal pain, chest pain, shortness of breath. Patient is status post kyphoplasty of the middle of the back 2 weeks ago, has been on morphine and tramadol, scheduled for MRI of the back on February 12, 2024. Patient denies any numbness or tingling or focal weakness. Patient declined any blood workup or imaging at this time and would like to have a pain shot to follow-up with her pain management physician tomorrow Related Data Home Medications Medication Instructions Recorded Confirmed duloxetine 60 mg capsule,delayed 60 mg PO DAILY 05/13/20 01/30/24 release (Cymbalta) acetaminophen 325 mg capsule 325 mg PO Q6H PRN Pain (Scale 01/02/23 01/30/24 (Tylenol) Score 1-3) morphine 15 mg immediate release 15 mg PO Q8H PRN Pain (Scale Score 06/27/23 01/30/24 tablet 7-10) tramadol 50 mg tablet 50 mg PO Q6H 06/27/23 01/30/24 cyclobenzaprine 10 mg tablet 10 mg PO DAILY PRN 01/30/24 01/30/24 levofloxacin 500 mg tablet 500 mg PO DAILY 01/30/24 01/30/24 Allergies Allergy/AdvReac Type Severity Reaction Status Date / Time codeine Allergy Mild Itching Verified 01/30/24 13:32 Review of Systems Review of Systems: All systems reviewed & are unremarkable except as noted in HPI and below PMFSH Past Medical History Medical History Abnormal urine finding Anemia Anxiety Arthralgia of both hands Bloating Chronic constipation Chronic nausea Chronic, continuous use of opioids Colon cancer screening COPD (chronic obstructive pulmonary disease) (Unknown) COVID-19 Depression Diabetes Diverticulosis of colon Early satiety Encounter for medication management Fibromyalgia Fibromyalgia Follicular bronchiolitis Gastritis Gastritis determined by endoscopy Hypothyroidism IBS (irritable bowel syndrome) Idiopathic hematuria Iron deficiency anemia Nausea and vomiting Nonerosive esophageal reflux disease Other irritable bowel syndrome Pain in joints Peripheral neuropathy Rheumatoid arthritis Rheumatoid arthritis Rib pain on right side RLS (restless legs syndrome) RUQ abdominal pain Seropositive rheumatoid arthritis of multiple joints Spinal stenosis at L4-L5 level Superficial gastritis without hemorrhage TMJ dysfunction Surgical History Surgical History History of bunionectomy of both great toes History of tubal ligation Hx of cholecystectomy Family History Family History Mother Family history of Parkinson's disease Sibling Family history of chronic obstructive pulmonary disease Liver cancer Father , natural causes No problems noted. Sibling No problems noted. Social History Social History Social History: Smoking packs per day: 1.5 Smoking cigarettes per day: 30.0 Years smoked: 48 Smoking pack-years: 72.00 Smoking status: Former smoker Tobacco type: cigarettes Second hand tobacco smoke exposure: No Additional smoking assessment comments: quit smoking cigarettes 4 years ago, still vapes Alcohol intake: never Substance use: current Substance use type: marijuana Other substance usage details: Has medical card Do You Feel Safe in your Home?: Yes Lack of Transportation: No Lack of Food: Never True Current Housing: I Have Housing Concerned About Future Housing: No Difficulty Paying Gas/Electric Bills: No Difficulty Paying for Meds: No Currently Unemployed: No Education: High School Diploma/GED Difficulty w/ Childcare or Family Care: No Living arrangements: alone 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 Gender identity (if verbalized by the patient): Female Sexual Orientation (if Verbalized by the Patient): Straight or Heterosexual Spiritual care concerns: No Exam Narrative: GENERAL APPEARANCE: WELL-DEVELOPED, WELL-NOURISHED SKIN: NORMAL COLOR HEAD: NORMOCEPHALIC, NONTRAUMATIC EYES: CLEAR CONJUNCTIVA ENT: OROPHARYNX NORMAL, EARS NORMAL, NOSE NORMAL NECK: SUPPLE, NONTENDER CHEST AND RESPIRATORY: AIRWAY PATENT, NO RESPIRATORY DISTRESS, NO ACCESSORY MUSCLE USE HEART: REGULAR RATE/RHYTHM ABDOMEN: SOFT, NONTENDER, NO ORGANOMEGALY, QUIET BOWEL SOUNDS VASCULAR: NORMAL PERIPHERAL PULSES, NORMAL CAPILLARY REFILL. 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, NO GROSS MOTOR DEFICIT Course Vital Signs Vital signs: Vital Signs Temperature 36.4 C 02/01/24 14:22 Pulse Rate 107 H 02/01/24 14:22 Respiratory Rate 20 02/01/24 14:22 Blood Pressure 151/70 H 02/01/24 14:22 Pulse Oximetry 99 02/01/24 14:22 Oxygen Delivery Room Air 02/01/24 14:22 Temperature 36.2 C L 02/01/24 18:51 Pulse Rate 93 02/01/24 18:51 Respiratory Rate 18 02/01/24 18:51 Blood Pressure 138/66 02/01/24 18:51 Pulse Oximetry 99 02/01/24 18:51 Oxygen Delivery Room Air 02/01/24 14:22 MDM - Abdominal Pain MDM Narrative Medical decision making narrative: PATIENT PRESENTS WITH CHRONIC BACK PAIN, SLIGHTLY WORSE OVER THE LAST FEW DAYS, STATUS POST KYPHOPLASTY 2 WEEKS AGO. VITAL SIGNS ARE STABLE PHYSICAL EXAMINATION SHOWING KYPHOSIS AND DIFFUSE TENDERNESS OF THE BACK BILATERALLY AND AT THE MIDLINE PATIENT DECLINED BLOOD WORKUP OR IMAGING AT THIS TIME AND WOULD LIKE TO HAVE A PAIN SHOT SCHEDULED TO MRI OF THE BACK ON February. PLANNING TO SEE HER PAIN MANAGEMENT PHYSICIAN TOMORROW. DILAUDID 1 MG IM, ZOFRAN 4 MG P.O. GIVEN WITH IMPROVEMENT OF THE PAIN. THE PT WAS DISCHARGED TO HOME.THE PT,S CONDITION UPON DISCHARGE WAS FAIR,EDUCATION WAS PROVIDED TO THE PT IN REFERENCE TO THE FINAL IMPRESSION,DISCHARGE STUDY RESULTS,TREATMENT,PROGNOSIS AND NEED FOR FOLLOW UP . Differential Diagnosis Differential diagnosis: Likely other ( CHRONIC BACK PAIN) Imaging Data Radiologist's impression: ITS Impressions Abdomen X-Ray 02/01/24 19:20 IMPRESSION: 1. Nonobstructive bowel gas pattern. Critical Care Time Critical Care Time Critical Care Time: No Discharge Plan Discharge Clinical Impression: Chronic back pain Patient Disposition: Home, Self-Care Condition: Improved Additional Instructions: Return if symptoms are worsening , call your family physician for appointment, take Tylenol as as needed for aches and pain, continue home medications. Prescriptions: No Action levothyroxine [Synthroid] 88 mcg tablet 88 mcg PO DAILY Qty: 90 1RF levofloxacin 500 mg tablet 500 mg PO DAILY cyclobenzaprine 10 mg tablet 10 mg PO DAILY PRN albuterol sulfate 2.5 mg /3 mL (0.083 %) solution for nebulization 2.5 mg inhalation Q4-6H PRN (Reason: shortness of breath or wheezing) Qty: 90 3RF pramipexole 0.25 mg tablet 0.25 mg PO TID Qty: 90 6RF Rx Instructions: May be taken as 1 tablet in the morning and 2 tablets at bedtime duloxetine [Cymbalta] 60 mg capsule,delayed release(DR/EC) 60 mg PO DAILY acetaminophen [Tylenol] 325 mg capsule 325 mg PO Q6H PRN (Reason: Pain (Scale Score 1-3)) morphine 15 mg tablet 15 mg PO Q8H PRN (Reason: Pain (Scale Score 7-10)) tramadol 50 mg tablet 50 mg PO Q6H tiotropium-olodaterol 2.5-2.5 mcg/actuation mist 2 puff inhalation DAILY Qty: 4 3RF famotidine [Pepcid] 20 mg tablet 20 mg PO DAILY Qty: 90 3RF albuterol sulfate 90 mcg/actuation HFA aerosol inhaler 2 inh inhalation Q4H PRN (Reason: shortness of breath or wheezing) Qty: 8.5 6RF Follow-up/Referrals: Vick,KATY Polk [Primary Care Provider] -
--- NOTE | 2024-02-01 21:12 | PC.NURSE ---
patient refused to have lab work, ekg and imaging done aside from xray. Patient educated that she takes morphine and tramadol at home and there is nothing else we can give her today for pain per Dr. Guerra.
== END 2024-02-01 21:15 | disposition home or self-care (01) ==
PROVIDERS: Emergency Provider Emergency Medicine; PCP Nurse Practitioner Family
DX: M54.6 Pain in thoracic spine (principal); G89.29 Other chronic pain; J44.9 Chronic obstructive pulmonary disease, unspecified; E11.42 Type 2 diabetes mellitus with diabetic polyneuropathy; E06.3 Autoimmune thyroiditis; G25.81 Restless legs syndrome; M81.0 Age-related osteoporosis without current pathological fracture; M05.79 Rheumatoid arthritis with rheumatoid factor of multiple sites without organ or systems involvement; K59.09 Other constipation; D50.9 Iron deficiency anemia, unspecified; Z86.16 Personal history of COVID-19; Z87.891 Personal history of nicotine dependence; Z90.49 Acquired absence of other specified parts of digestive tract; Z79.899 Other long term (current) drug therapy
CPT/HCPCS: 74018; 99283

== ENCOUNTER 2024-02-23 08:27 | Outpatient (CLI) | payer MEDICARE, SELFPAY ==
--- NOTE | ~2024-02-23 | US_ITS ---
US abdomen complete EXAMINATION: US Abdomen Complete INDICATION: Right upper quadrant pain PROCEDURE: Realtime High Resolution abdomen ultrasound. COMPARISON: CT dated 09/04/2022 FINDINGS: Gallbladder is surgically absent. Common bile duct measures 2.5 mm. Liver echotexture within normal limits without focal mass. Liver is enlarged measuring 18.6 cm. Pancr eas within normal limits. Pancreatic tail is obscured by bowel gas. Spleen is unremarkeable. Renal echotexture is within normal limits bilaterally without hydronephrosis, contour deforming mass or hugo al stone. Right kidney measures 10.6 cm. Left kidney measures 9.7 cm. There is a left renal cyst at t he upper pole measuring 3.2 cm. Visualized aspects of the aorta and IVC are within normal limits. Portal vein is patent. No sonograph ic Garcia's sign indicated by the technologist. There is atherosclerosis of the abdominal aorta with mild ectasia. No aneurysm identified. IMPRESSION: 1: Hepatomegaly. 2: Status post cholecystectomy. Reviewed, dictated and finalized at location B. 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
--- OUTSIDE RECORDS SUMMARY | 2024-02-23 12:15 | XMS_ITS | Continuity of Care Document ---
Author Organization [place] [facility], [facility] [address] Address [address] 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 Plan of Treatment Reminders Order Date Submit Date Provider Last Modified By Organization Details Last Modified Time Details Appointments None recorded. Lab None recorded. Referral None recorded. Procedures None recorded. Surgeries None recorded. Imaging None recorded. Medication Orders amitriptyli ne 25 mg tablet 2023 024 [facility] #[id number], [address], [place], [address], 15:25:18 Patient TargetsNo targets recorded. Patient InstructionsNo instructions recorded. Reason for Referral None Reported. Results Created Date Observation Date Name Description Value Unit Range Abnormal Flag Note LastModifiedBy Organization Detail LastModifiedTime 01/23/20 elect romyo gram + nerve condu ction study No observ ation record ed. [email or web address] [facility] (Cardiology [facility]) [address], [place], [address], 01/23/2024 11:56:57 01/24/20 24 07/10/2023 DEXA, axial skele ton No observ ation record ed. Not Available 2023 15:39:51 02/20/20 24 02/08/2024 CT, abdom en + pelvi s, w/ contr ast No observ ation record ed. BARCODE Not Available 2023 18:43:38 Result Notes None recorded. Problems Name Problem SNOMED Code Status Onset Date Resolution Date Notes Provider Name and Address Organization Details Recorded Time Numbness and tingling sensation of skin 86377901577 2 Active 2021 Not Available [facility] 3 01:16:23 Irritable bowel syndrome 91740074 Completed Not Available [facility] 3 01:16:23 Lumbar radiculop athy 376382275 Active 2016 Not Available [facility] 3 01:16:24 Chronic obstructi ve pulmonary disease 03488147 Active 2019 Not Available [facility] 3 01:16:24 Urinary incontine nce 906548439 Active Not Available [facility] 3 01:16:24 Nausea and vomiting 51802702 Active 2021 Not Available [facility] 3 01:16:24 Asthma 497651940 Completed 201708/12/2019 Not Available [facility] 3 01:16:24 Anxiety disorder 345227102 Active Lamine Cedeño MD [address], [place], [address] , [employer] 4 15:11:34 Hand joint pain 448113063 Active Not Available [facility] 3 01:16:24 Fibromyal justin 375936287 Active Not Available [facility] 3 01:16:24 Lumbar sprain 942263391 Completed Not Available [facility] 3 01:16:24 Gastric reflux 659813317 Completed 201608/12/2019 Not Available [facility] 3 01:16:25 Gastroeso phageal reflux disease 191839791 Active 2019 Lamine Cedeño MD [address], [place], [address] , [employer] 4 14:34:15 Pure hyperchol esterolem ia 871101777 Active Not Available [facility] 3 01:16:25 Anemia 326729998 Active 2022 Lamine Cedeño MD [address], [place], [address] , [employer] 4 14:33:51 Low back pain 438578509 Active 2020 Not Available [facility] 3 01:16:25 Chest pain 34344352 Completed 201712/03/2018 Not Available [facility] 3 01:16:25 Pain of right wrist 56513661150 9100 Active 2020 Not Available [facility] 3 01:16:25 Osteoarth ritis of left knee joint 71025200734 9109 Active 2022 Not Available [facility] 3 01:16:26 Osteoarth ritis of right knee joint 19834869424 9100 Active 2022 Not Available [facility] 3 01:16:26 Restless legs 57714367 Active Lamine Cedeño MD [address], [address], [place], [address] , [employer] 4 14:36:46 Vitamin D deficienc y 60986661 Active 2022 Lamine Cedeño MD [address], [place], [address] , [employer] 4 14:35:29 Depressiv e disorder 49962074 Active Not Available [facility] 3 01:16:26 Chronic pain syndrome 791314571 Active 2017 Lamine Cedeño MD [address], [place], [address] , [employer] 4 15:11:54 Hypothyro idism 74486857 Active 2020 Lamine Cedeño MD [address], [place], [address] , [employer] 4 15:12:11 Trigger finger Active Not Available [facility] 3 01:16:27 Swelling of lower leg 725941087 Active 2022 Not Available [facility] 3 01:16:27 Pain of bilateral knee joints 28829762845 4104 Active 2022 Not Available [facility] 3 01:16:27 Anxiety 89154460 Completed Not Available [facility] 3 01:16:28 Cervical radiculop athy 93681604 Active Not Available [facility] 3 01:16:28 Carpal tunnel syndrome 98228405 Active Lamine Cedeño MD [address], [place], [address] , [employer] 4 15:11:37 Muscle pain 51847008 Active 2021 Not Available [facility] 3 01:16:28 Urethral caruncle 9602527 Active Not Available [facility] 3 01:16:28 Rheumatoi d arthritis 62604462 Active 2018 Lamine Cedeño MD [address], [place], [address] , [place] [employer] [facility] [employer] 4 15:12:22 Prediabet es 618304663 Active 2021 Lamine Cedeño MD [address], [place], [address] , [employer] 4 14:35:00 Brachial neuritis 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 Active Not Available [facility] 3 01:16:29 COVID-19 655947865 Active 2021 Not Available [facility] 3 01:16:29 Postchole cystectom y syndrome 75391030 Active 2016 Not Available [facility] 3 01:16:29 Paresthes ia of upper limb 86298803 Active 2021 Not Available [facility] 3 01:16:30 Iron deficienc y anemia 51614816 Active 2022 Lamine Cedeño MD [address], [place], [address] , [place] [facility] 4 14:36:36 Focal motor weakness 345055019 Active 2022 Ana Paula Richardson MD [address], [place], [address] , [place] [facility] 3 15:20:36 Abnormal uterine bleeding 88558411930 100 Active 2022 Ana Paula Richardson MD [address], [place], [address] , [place] [facility] 3 15:21:20 Effusion of joint of left knee 17473832267 9105 Active 2022 LORIE Villanueva [address], [place], [address] , [facility] 3 10:39:00 MRI of head abnormal 36255702697 9107 Active 2022 Ana Paula Richardson MD [address], [place], [address] , [facility] - [facility] 3 22:56:04 Bilateral wrist pain 55985946931 022193 Active 2022 Joan Werner [employer] null, [place] [facility] 3 10:01:16 Bilateral carpal tunnel syndrome 38216232397 384858 Active 2022 LORIE Villanueva [address], [address] [address], [place], [address] , [facility] 3 11:32:59 Pain of bilateral hands 34519246615 424186 Active 2022 Joan Werner [employer] null, [place] [facility] 3 11:35:45 Postmenop ausal osteoporo sis 861206289 Active 2022 Lamine Cedeño MD [address], [place], [address] , [facility] 4 14:35:50 Pain of right knee joint 10574887247 4100 Active 2023 JENNIFER Alvarado null, [place] [facility] 4 12:33:15 Pain of left knee joint 72113418542 4107 Active 2023 JENNIFER Alvarado null, [place] [facility] 4 12:33:29 Bilateral osteoarth ritis of knees 73748739173 9107 Active 2023 Lamine Cedeño MD [address], [place], [address] , [place] [facility] 4 14:34:09 Overactiv e urinary bladder 958172818 Active 2023 Lamine Cedeño MD [address], [place], [address] , [facility] 4 14:37:06 Nodule of lung 578582313 Active 2023 Lamine Cedeño MD [address], [place], [address] , [place] [facility] 4 15:16:23 Osteoporo sis 57410594 Active 2023 Lamine Cedeño MD [address], [place], [address] , [facility] 4 15:18:14 Rib pain 213478075 Active 2023 Adelia Swift MA null, [place] [facility] 4 14:27:46 Pain of bilateral knee regions 66786945147 4102 Active 2023 Lamine Cedeño MD [address], [place], [address] , [place] [facility] 4 10:04:14 Neuropath y 044101564 Active 2023 Lamine Cedeño MD [address], [place], [address] , [place] [facility] 4 10:04:39 Edema of lower extremity 660066750 Active 2023 Kassy Gore NP [address], [place], [address] , [place] [facility] 4 15:29:24 Pulmonary embolism 64348107 Active 2023 Lamine Cedeño MD [address], [place], [address] , [place] [facility] 4 14:58:28 Diarrhea 45825139 Active 2023 Lamine Cedeño MD [address], [place], [address] , [place] [facility] 4 14:26:07 Dehydrati on 57099311 Active 2023 Lamine Cedeño MD [address], [place], [address] , [place] [facility] 4 14:27:26 Pneumonia 905386745 Active 2023 Lamine Cedeño MD [address], [place], [address] , [place] [facility] 4 15:47:38 Hyponatre valerie 58010837 Active 2023 Lamine Cedeño MD [address], [place], [address] , [place] [facility] 4 15:47:49 Vaginitis 77786840 Active 2023 Lamine Cedeño MD [address], [place], [address] , [place] [facility] 4 15:49:05 Chest wall pain 101227376 Active 2023 Lamine Cedeño MD [address], [place], [address] , [place] [facility] 4 15:38:50 Bronchiti s 30806758 Active 2023 Tona mckee, [place] [facility] 4 10:54:00 Ear problem 611244567 Active 2023 Tona Alli null, [facility] 4 10:54:22 Headache 52113587 Active 2023 Tona Carson null, [facility] 4 10:54:46 Heartburn 12359117 Active 2023 Tona Carson null, [facility] 4 10:55:24 Disorder of lung 27424487 Active 2023 Tona Dodd null, [facility] 4 10:55:37 Disorder of thyroid gland 69096346 Active 2023 Tona Carson null, [facility] 4 10:56:19 Idiopathi c periphera l neuropath y 31526313 Active 2023 Kd Gregorio DPM [address], [place], [address] , [facility] 4 11:00:14 Muscle weakness of limb 012925185 Active 2023 Kd Gregorio DPM [address], [place], [address] , [facility] 4 11:01:00 Bunion 170362268 Active 2023 Kd Gregorio DPM [address], [place], [address] , [facility] 4 11:01:06 Hammer toe 458075775 Active 2023 Kd Gregorio DPM [address], [place], [address] , [facility] 4 11:02:01 Laceratio n of skin 331671053 Active 2023 Lamine Cedeño MD [address], [place], [address] , [facility] 4 15:52:10 Right flank pain 675602209 Active 2023 TERE Carrillo, [facility] [facility] 4 11:57:01 Notes:Some problems listed i n Documents: #[id number], #[id number], #[id number] could not be added to this patient's chart. Please review these documents and add these problems to the patient's chart manually as needed. Problem Notes None recorded. Procedures Surgical History Date Name Laterality Status Provider Name and Address Organization Details Recorded Time 11/08/19 23 Ortho - Cortisone Injection completed Kolton Gutierrez MD [address] [place] [address], [address], [facility] [employer] [facility] 11/07/2022 10:03:10 06/24/19 21 Date of Last Colonoscopy completed Not Available [facility] 05/11/2022 01:05:55 08/14/19 20 Most Recent Bone Density completed Not Available [facility] 05/11/2022 01:05:56 Cataract Surgery completed Not Available [facility] 05/11/2022 01:06:02 Knee Surgery completed Not Available [facility] 05/11/2022 01:06:02 ligation of bilateral fallopian tubes completed Not Available [facility] 05/11/2022 01:06:02 Cholecystectomy completed Not Available [facility] 05/11/2022 01:06:02 Gallbladder Surgery completed Not Available [facility] 05/11/2022 01:06:02 Imaging Results None recorded. Procedure Notes None recorded. Medical Equipment None Reported. Allergies Allergen ID Allergen Name Allergen Category Reaction Reaction Severity Criticality Documentation Date Start Date Code Code System Note Provider Name and Address Organization Details Recorded Time 2470 Avelox medicatio n rash Not available Not available 05/11/2022 23622 6 RxNorm Not Available [facility] 01:30:21 2471 codeine medicatio n nausea Not available Not available 05/11/2022 2670 RxNorm JENNIFER Alvarado, [facility] [employer] [facility] 12:28:49 Medications Name Sig Start Date Stop Date Status Note LastModified by Organization Details LastModified Time Pravachol 40 mg tablet one tablet at bedtime active Not Available Not Available No t Available cyclobenz aprine 10 mg tablet TAKE 1 TABLET BY MOUTH THREE TIMES A DAY NEEDED FOR MUSCLE SPASMS active Not Available Not Available No t Available amoxicill in 500 mg capsule Take 1 capsule 3 times a day by oral route for 10 days. 04/08 completed Not Available Not Available Not Available pramipexo le 1 mg tablet TAKE ONE TABLET BY MOUTH ONCE DAILY AT BEDTIME. active Not Available Not Available No t Available methocarb lucrecia 500 mg tablet TAKE 2 TABLETS BY MOUTH FOUR TIMES DAILY NEEDED active Not Available Not Available No t Available clotrimaz ole 10 mg milan TAKE 1 MILAN/L OZENGE 5 TIMES DAILY 11/13 completed Not Available Not Available Not Available insulin syringe U-100 with needle 1 mL 25 x 1 take once weekly with b12 09/20 completed Not Available Not Available Not Available neomycin- polymyxin -hydrocor t 3.5 mg/mL-10, 000 unit/mL-1 % ear solution INSTILL 4 DROPS TO AFFECTED EAR 3 TO 4 TIMES DAILY FOR 10 DAYS 07/13 completed Not Available Not Available Not Available nystatin 100,000 unit/mL oral suspensio n TAKE 6 MLS BY MOUTH 4 TIMES DAILY 08/14 completed Not Available Not Available Not Available prednison e 10 mg tablet TAKE 40MG (4 TABLETS) BY MOUTH DAILY active Not Available Not Available No t Available gabapenti n 600 mg tablet PLEASE SEE ATTACHED FOR DETAILED DIRECTIO NS active Not Available Not Available No t Available doxycycli ne hyclate 100 mg capsule active Not Available Not Available Not Available ropinirol e 1 mg tablet TAKE 1 TABLET BY MOUTH EVERY DAY AT BEDTIME 07/13 completed Not Available Not Available Not Available ipratropi um 0.5 mg-albute rol 3 mg (2.5 mg base)/3 mL nebulizat ion soln USE 3 ML VIA NEBULIZE R EVERY 4 HOURS NEEDED FOR SHORTNES S OF BREATH 11/13 completed Not Available Not Available Not Available sulfasala zine 500 mg tablet 02/08 completed Not Available Not Available Not Available albuterol sulfate 2.5 mg/3 mL (0.083 %) solution for nebulizat ion INHALE CONTENTS OF 1 VIAL NEBULIZE D EVERY 4 TO 6 HOURS NEEDED FOR SHORTNES S OF BREATH/W HEEZE active Not Available Not Available No t Available loperamid e 2 mg capsule TAKE 1 CAPSULE BY MOUTH EVERY 4 HOURS NEEDED FOR DIARRHEA 07/13 completed Not Available Not Available Not Available trazodone 50 mg tablet Take 1 tablet every day by oral route at bedtime. 2015 active Not Available Not Available Not Avai lable oxybutyni n chloride ER 10 mg tablet,ex tended release 24 hr TAKE 1 TABLET BY MOUTH EVERY DAY active Not Available Not Available No t Available azithromy papito 250 mg tablet TAKE 2 TABLETS BY MOUTH TODAY, THEN TAKE 1 TABLET DAILY FOR 4 DAYS DIRECTED 02/18 completed Not Available Not Available Not Available Prozac 40 mg capsule Take 1 capsule every day by oral route. 08/15 completed Not Available Not Available Not Available ibuprofen 800 mg tablet TAKE 1 TABLET BY MOUTH UP TO TWICE DAILY WITH FOOD NEEDED FOR PAIN active Not Available Not Available No t Available alprazola m 1 mg tablet TAKE ONE TABLET BY MOUTH FOUR TIMES DAILY NEEDED. active Not Available Not Available No t Available Lidocaine Viscous 2 % mucosal solution SWISH AND SPIT 5 ML BY MOUTH EVERY 6 HOURS. MAY USE UP TO 4 TIMES DAILY FOR TOOTH PAIN. DO NOT SWALLOW 06/15 completed Not Available Not Available Not Available ofloxacin 0.3 % eye drops 05/21 completed Not Available Not Available Not Available tizanidin e 4 mg tablet TAKE ONE TABLET BY MOUTH THREE TIMES DAILY active Not Available Not Available No t Available fluconazo le 150 mg tablet TAKE 1 TABLET BY MOUTH ONCE 11/13 completed Not Available Not Available Not Available benzonata te 200 mg capsule TAKE 1 CAPSULE BY MOUTH THREE TIMES DAILY NEEDED FOR COUGH 06/30 completed Not Available Not Available Not Available Xanax 2 mg tablet one three times a day for anxiety 09/10 completed reduced to 1 mg qid Not Available Not Available Not Available ranitidin e 300 mg tablet 10/22 completed Not Available Not Available Not Available hydrocodo ne 5 mg-acetam inophen 325 mg tablet TK 2 TS PO 2 HOURS BEFORE PROCEDUR E. 06/02 completed Not Available Not Available Not Available senna 8.6 mg tablet TAKE 1 TABLET BY MOUTH DAILY 07/13 completed Not Available Not Available Not Available ondansetr on HCl 8 mg tablet TK 1 T PO 2 HOURS BEFORE THE PROCEDUR E. 05/21 completed Not Available Not Available Not Available meloxicam 15 mg tablet TAKE 1 TABLET BY MOUTH EVERY DAY. DO NOT EXCEED 1 TABLET PER 24 HOURS 04/18 completed Not Available Not Available Not Available ondansetr on HCl 4 mg tablet TAKE 1 TABLET BY MOUTH EVERY 8 HOURS NEEDED active Not Available Not Available No t Available bupivacai ne HCl 0.5 % (5 mg/mL) injection solution Take 40 mg by injectio n route. 08/14 completed Not Available Not Available Not Available prednison e 20 mg tablet TAKE 2 TABLETS BY MOUTH ONCE DAILY active Not Available Not Available No t Available alendrona te 70 mg tablet TAKE 1 TABLET BY MOUTH EVERY WEEK 07/13 completed Not Available Not Available Not Available gabapenti n 400 mg capsule Take 1 capsule every day by oral route. 10/22 completed Not Available Not Available Not Available prednison e 5 mg tablet TAKE 1 TO 3 TABLETS BY MOUTH DAILY NEEDED active Not Available Not Available No t Available sulfasala zine 500 mg tablet,de layed release TAKE 3 TABLETS BY MOUTH TWICE A DAY 08/14 completed Not Available Not Available Not Available cyanocoba madiha (vit B-12) 1,000 mcg tablet Take 1 tablet every day by oral route. 06/25 completed Not Available Not Available Not Available leflunomi de 10 mg tablet 11/05 completed Not Available Not Available Not Available Klor-Con 20 mEq oral packet TAKE 2 PACKETS BY MOUTH ONCE DAILY FOR 1 DAY IN 12 OUNCES OF WATER OR JUICE AFTER A MEAL 07/13 completed Not Available Not Available Not Available azathiopr ine 50 mg tablet TAKE 2 TABLETS BY MOUTH EVERY DAY active Not Available Not Available No t Available amlodipin e 5 mg tablet TAKE 1 TABLET BY MOUTH EVERY DAY active Not Available Not Available No t Available prochlorp erazine maleate 10 mg tablet TAKE 1 TABLET BY MOUTH EVERY 8 HOURS NEEDED FOR NAUSEA OR VOMITING 07/13 completed Not Available Not Available Not Available insulin syringe U-100 with needle 1 mL 29 gauge x 7/16 USE DIRECTED WITH WEEKLY B12 SHOTS WEEKLY. 06/29 completed Not Available Not Available Not Available sulfameth oxazole 800 mg-trimet hoprim 160 mg tablet Take 1 tablet every 12 hours by oral route for 7 days. 10/12 completed Not Available Not Available Not Available hydrocodo ne 10 mg-acetam inophen 325 mg tablet TK 1 T PO QID 06/26 completed Not Available Not Available Not Available peg-elect rolyte solution 420 gram oral solution DRINK 1/2 AT 5PM ON 12/27 AND THE OTHER 1/2 AT 5AM ON 12/28 active Not Available Not Available No t Available omeprazol e 40 mg capsule,d elayed release TAKE 1 CAPSULE BY MOUTH TWICE A DAY 08/14 completed Not Available Not Available Not Available liothyron ine 5 mcg tablet TAKE 1 TABLET TWICE A DAY BY MOUTH AROUND THE CLOCK FOR 90 DAYS. 07/13 completed Not Available Not Available Not Available leflunomi de 20 mg tablet 02/08 completed Not Available Not Available Not Available tramadol 50 mg tablet TAKE 1-2 TABLETS WITH OTC TYLENOL BY MOUTH 3 TIMES DAILY FOR PAIN CONTROL active Not Available Not Available No t Available guaifenes in 100 mg/5 mL oral liquid TAKE 10 ORAL MILLILIT ERS NEEDED EVERY 4-6 HOURS 08/14 completed Not Available Not Available Not Available triamcino lone acetonide 0.1 % topical cream 05/24 completed Not Available Not Available Not Available Cholestyr amine Light 4 gram powder for susp in a packet MIX AND DRINK 1 PACKET(S ) BY MOUTH TWICE DAILY 01/23 completed Not Available Not Available Not Available lamotrigi ne 25 mg tablet Take 1 tablet twice a day by oral route. 10/09 completed Not Available Not Available Not Available baclofen 20 mg tablet Take 1 tablet 4 times a day by oral route. 01/23 completed Not Available Not Available Not Available ketorolac 0.5 % eye drops 05/21 completed Not Available Not Available Not Available prednison e 10 mg tablets in a dose pack Take 1 tab by mouth, 3 times a day for 3 daysTake 1 tab by mouth 2 times a day for 2 daysTake 1 tab by mouth once a day for 1 day 01/07 completed Not Available Not Available Not Available meloxicam 7.5 mg tablet Take 1 tablet every day by oral route. 11/02 completed Not Available Not Available Not Available BD Tuberculi n Syringe 1 mL 27 x 1/2 USE FOR B-12 INJECTIO NSSURE COMFORT 1CC 31G INSULIN SYRINGES 01/17 completed Not Available Not Available Not Available alendrona te 35 mg tablet TK 1 T PO Q WK 05/21 completed Not Available Not Available Not Available erythromy papito 250 mg tablet 02/08 completed Not Available Not Available Not Available alprazola m 0.5 mg tablet TAKE 1 TABLET BY MOUTH EVERY 8 HOURS NEEDED 08/14 completed Not Available Not Available Not Available amoxicill in 875 mg tablet TAKE 1 TABLET BY MOUTH EVERY 12 HOURS FOR 10 DAYS 07/13 completed Not Available Not Available Not Available famotidin e 20 mg tablet active Not Available Not Available Not Available amitripty line 25 mg tablet TAKE 1 TABLET BY MOUTH EVERY DAY AT BEDTIME 2023 active Not Available Not Available Not Avai lable prednisol one acetate 1 % eye drops,san[employer] pension INSTILL 1 DROP IN BOTH EYES THREE TIMES DAILY 01/17 completed Not Available Not Available Not Available metoclopr amide 5 mg tablet 06/26 completed Not Available Not Available Not Available estradiol 1 mg tablet Take 1 tablet every day by oral route. 08/27 completed Not Available Not Available Not Available ropinirol e 0.25 mg tablet TAKE 2 TABLET BY MOUTH ONCE DAILY 09/20 completed Not Available Not Available Not Available fluvoxami ne 25 mg tablet Take 1 tablet every day by oral route. 06/05 completed Not Available Not Available Not Available Synthroid 25 mcg tablet Take 1 tablet every day by oral route in the morning for 30 days. active Not Available Not Available No t Available Kenalog 10 mg/mL suspensio n for injection Take 40 mg by injectio n route. 08/14 completed NDC: [id number] Not Available Not Available Not Available amitripty line 10 mg tablet TAKE 1 TABLET BY MOUTH EVERY DAY AT BEDTIME 01/17 completed Not Available Not Available Not Available benzonata te 100 mg capsule TAKE 1 CAPSULE BY MOUTH EVERY 8 HOURS NEEDED 07/13 completed Not Available Not Available Not Available dexametha sone 2 mg tablet One Tablet TID for 3 Days One Tablet BID for 3 Days One Table once daily 3 days active Not Available Not Available No t Available hydrocodo ne 7.5 mg-acetam inophen 325 mg tablet 1 TABLET TWICE A DAY active Not Available Not Available No t Available ropinirol e 2 mg tablet TAKE 1 TABLET BY MOUTH THREE TIMES DAILY 07/13 completed Not Available Not Available Not Available prednison e 2.5 mg tablet 11/05 completed Not Available Not Available Not Available cephalexi n 500 mg capsule TAKE 1 CAPSULE BY MOUTH EVERY 12 HOURS FOR 7 DAYS 08/14 completed Not Available Not Available Not Available pantopraz ole 40 mg tablet,de layed release TAKE 1 TABLET BY MOUTH EVERY DAY active Not Available Not Available No t Available cyanocoba madiha (vit B-12) 1,000 mcg/mL injection solution inject 1 cc SQ once weekly x 90 days 09/20 completed Not Available Not Available Not Available oseltamiv ir 75 mg capsule TAKE 1 CAPSULE BY MOUTH TWICE DAILY. START TODAY 04/26/19 24 AT 2100. AFTER 13 DOSES DISCARD REMAINDE R 08/14 completed Not Available Not Available Not Available ferrous sulfate 325 mg (65 mg iron) tablet Take 1 tablet twice a day by oral route in the morning for 90 days. 2023 active Not Available Not Available Not Avai lable Cipro 500 mg tablet Take 1 tablet every 12 hours by oral route for 10 days. 01/23 completed Not Available Not Available Not Available ranitidin e 300 mg capsule Take 1 capsule every day by oral route. 01/23 completed Not Available Not Available Not Available Gentle Laxative (bisacody l) 5 mg tablet,de layed release TAKE AT 8 AM ON 06/22 completed Not Available Not Available Not Available lidocaine 5 % topical patch active Not Available Not Available Not Available promethaz ine 25 mg tablet Take 1 tablet twice a day by oral route as needed for 14 days. 01/17 completed Not Available Not Available Not Available carbidopa 10 mg-levodo pa 100 mg tablet TAKE 1 TABLET BY MOUTH EVERY DAY AT BEDTIME 12/02 completed Not Available Not Available Not Available metoprolo l tartrate 50 mg tablet TAKE 1 TABLET BY MOUTH TWICE DAILY 08/14 completed Not Available Not Available Not Available Synthroid 75 mcg tablet TAKE 1 TABLET BY MOUTH EVERY DAY active Not Available Not Available No t Available pramipexo le 0.125 mg tablet TAKE 1 TABLET BY MOUTH TWICE A DAY 07/13 completed Not Available Not Available Not Available Synthroid 50 mcg tablet Take 1 tablet every other day by oral route in the morning for 90 days. 05/27 completed Not Available Not Available Not Available pramipexo le 0.25 mg tablet TAKE 1 TABLET BY MOUTH THREE TIMES A DAY *MAY BE TAKEN 1 TAB IN THE MORNING AND 2 TABS AT BEDTIME active Not Available Not Available No t Available gabapenti n 300 mg capsule TAKE 1 CAPSULE BY MOUTH TWICE A DAY active Not Available Not Available No t Available omeprazol e 20 mg capsule,d elayed release 05/24 completed Not Available Not Available Not Available Sinemet 25 mg-100 mg tablet Take 1 tablet every day by oral route. 04/27 completed Not Available Not Available Not Available diclofena c sodium 75 mg tablet,de layed release TAKE 1 TABLET BY MOUTH TWICE A DAY 07/13 completed Not Available Not Available Not Available morphine ER 15 mg tablet,ex tended release TAKE 1 TABLET (15 MG) BY ORAL ROUTE EVERY 12 HOURS active Not Available Not Available No t Available halobetas ol propionat e 0.05 % topical cream active Not Available Not Available Not Available diclofena c sodium 50 mg tablet,de layed release Take 1 tablet twice a day by oral route. active Not Available Not Available No t Available furosemid e 20 mg tablet Take 1 tablet every day by oral route. active Not Available Not Available No t Available gabapenti n 100 mg capsule Take 3 capsules every day by oral route. 10/22 completed Not Available Not Available Not Available hydroxych loroquine 200 mg tablet TAKE 2 TABLETS (400 MG TOTAL) BY MOUTH DAILY 05/24 completed Not Available Not Available Not Available levofloxa papito 500 mg tablet TAKE 1 TABLET BY MOUTH EVERY 24 HOURS FOR 10 DAYS active Not Available Not Available No t Available oxycodone -acetamin ophen 7.5 mg-325 mg tablet TAKE 1 TABLET BY MOUTH TWICE A DAY NEEDED active Not Available Not Available No t Available methylpre dnisolone 4 mg tablets in a dose pack TAKE 6 TABLETS ON DAY 1 DIRECTED ON PACKAGE AND DECREASE BY 1 TAB EACH DAY FOR A TOTAL OF 6 DAYS 08/14 completed Not Available Not Available Not Available albuterol sulfate HFA 90 mcg/actua tion aerosol inhaler INHALE 2 PUFFS EVERY 4 HOURS NEEDED FOR SHORTNES S OF BREATH OR FOR WHEEZE active Not Available Not Available No t Available Vitamin D2 1,250 mcg (50,000 unit) capsule Take 1 capsule every week by oral route. active Not Available Not Available No t Available hydroxyzi ne HCl 10 mg tablet Take by oral route four times daily PRN for itching active Not Available Not Available No t Available methadone 5 mg tablet TAKE 1 TABLET BY MOUTH EVERY 8 HOURS NEEDED 07/13 completed Not Available Not Available Not Available cefdinir 300 mg capsule TAKE 1 CAPSULE BY MOUTH TWICE A DAY 07/13 completed Not Available Not Available Not Available fluticaso ne propionat e 50 mcg/actua tion nasal spray,sanjuana pension 07/13 completed Not Available Not Available Not Available metformin ER 500 mg tablet,ex tended release 24 hr Take 1 tablet every day by oral route at dinner for 90 days. 01/07 completed Not Available Not Available Not Available dextroamp hetamine- amphetami ne 5 mg tablet 06/26 completed Not Available Not Available Not Available diazepam 5 mg tablet 1 TABLET NEEDED ORALLY 1 TABLET 1 HOUR BEFORE PROCEDUR E. MAY REPEAT IN 30 MINUTES IF NEEDED 07/13 completed Not Available Not Available Not Available metoclopr amide 10 mg tablet 10/15 completed Not Available Not Available Not Available amoxicill in 875 mg-potass ium clavulana te 125 mg tablet TAKE 1 TABLET BY MOUTH TWICE A DAY 07/13 completed Not Available Not Available Not Available amoxicill in 500 mg-potass ium clavulana te 125 mg tablet TAKE 1 TABLET BY MOUTH TWICE DAILY 10/15 completed Not Available Not Available Not Available Vitamin D3 25 mcg (1,000 unit) tablet Take 1 tablet every day by oral route. 04/08 completed Not Available Not Available Not Available Strattera 40 mg capsule Take 1 capsule every day by oral route. 2013 active Not Available Not Available Not Avai lable cyclobenz aprine 5 mg tablet TK 1 T PO Q 8 H 05/21 completed Not Available Not Available Not Available Topamax 50 mg tablet Take 1 tablet every day by oral route. 11/27 completed Not Available Not Available Not Available Multiple Vitamin, Womens tablet Take 1 tablet every day by oral route. 11/02 completed Not Available Not Available Not Available nitrofura ntoin monohydra te/macroc rystals 100 mg capsule TAKE 1 CAPSULE BY MOUTH EVERY 12 HOURS FOR 7 DAYS 09/20 completed Not Available Not Available Not Available duloxetin e 30 mg capsule,d elayed release TAKE 1 CAPSULE BY MOUTH EVERY DAY 11/13 completed Not Available Not Available Not Available duloxetin e 60 mg capsule,d elayed release TAKE 1 CAPSULE BY MOUTH EVERY DAY IN THE MORNING active Not Available Not Available No t Available eszopiclo ne 2 mg tablet TAKE 1 TABLET WITH YOU TO SLEEP LAB AND ADMINIST ER FOR INSOMNIA *NOT COVERED* 07/13 completed Not Available Not Available Not Available levalbute rol HFA 45 mcg/actua tion aerosol inhaler INHALE 2 PUFFS BY MOUTH EVERY 6 HOURS NEEDED FOR SHORTNES S OF BREATH 07/13 completed Not Available Not Available Not Available ibandrona te 150 mg tablet TAKE 1 TABLET BY MOUTH ONCE A MONTH WITH A FULL GLASS OF WATER AND REMAIN UPRIGHT AT LEAST 1 HOUR. 07/13 completed Not Available Not Available Not Available chlorhexi dine gluconate 0.12 % mouthwash SWISH AND SPIT 5 ML BY MOUTH TWICE DAILY FOR A MAX OF 2 WEEKS 02/18 completed Not Available Not Available Not Available Pepcid 02/08 completed Not Available Not Available Not Available progester one per pt 0.5 mg daily 08/27 completed Not Available Not Available Not Available Ventolin HFA 08/15 completed Not Available Not Available Not Available Amitiza 24 mcg capsule Take 1 capsule twice a day by oral route. 2014 active Not Available Not Available Not Avai lable lidocaine (PF) 10 mg/mL (1 %) injection solution In office injectio n administ ered by the provider 01/07 completed [facility]: [id number] 08-27 Not Available Not Available Not Available Enbrel SureClick 50 mg/mL (1 mL) subcutane ous pen injector active Not Available Not Available Not Available Symbicort 160 mcg-4.5 mcg/actua tion HFA aerosol inhaler INHALE 2 PUFFS BY MOUTH TWICE DAILY 06/15 completed Not Available Not Available Not Available compressi on stocking, thigh high, regular length, large circumfer ence to wear when upright and feet not above the level of the heart 2023 active Not Available Not Available Not Avai lable compressi on socks, medium wear when unable to elevate feet above the heart to minimize swelling 2023 active Not Available Not Available Not Avai lable diclofena c 1 % topical gel APPLY TO THE AFFECTED AREA FOUR TIMES DAILY NEEDED 09/20 completed Not Available Not Available Not Available Synvisc-O ne 48 mg/6 mL intra-art icular syringe Take 6 mL by intraart icular route. 07/13 completed Not Available Not Available Not Available Zenpep take with meals 06/29 completed Not Available Not Available Not Available Probiotic 01/23 completed Not Available Not Available Not Available ropivacai ne (PF) 5 mg/mL (0.5 %) injection solution Take 40 mg by injectio n route. 07/13 completed [facility] [id number] 06-11 Not Available Not Available Not Available lidocaine 5 % topical ointment active Not Available Not Available Not Available Combivent Respimat 20 mcg-100 mcg/actua tion solution for inhalatio n INHALE 1 PUFF BY MOUTH 4 TIMES A DAY NEEDED FOR WHEEZING . 11/13 completed Not Available Not Available Not Available Myrbetriq 25 mg tablet,ex tended release TAKE 1 TABLET BY MOUTH EVERY DAY 06/05 completed Not Available Not Available Not Available Linzess 145 mcg capsule Take 1 capsule every day by oral route. 05/24 completed Not Available Not Available Not Available Linzess 290 mcg capsule TAKE ONE CAPSULE BY MOUTH DAILY 11/05 completed Not Available Not Available Not Available Vascepa 1 gram capsule Take 2 capsules twice a day by oral route with meals for 90 days. active Not Available Not Available No t Available Eliquis 5 mg tablet TAKE 1 TABLET BY MOUTH TWICE A DAY 02/18 completed Not Available Not Available Not Available potassium chloride ER 20 mEq tablet,ex tended release TAKE 2 TABLETS BY MOUTH EVERY DAY FOR 7 DAYS 11/13 completed Not Available Not Available Not Available Spiriva Respimat 2.5 mcg/actua tion solution for inhalatio n INHALE 2 PUFFS BY MOUTH DAILY 08/14 completed Not Available Not Available Not Available Movantik 25 mg tablet TAKE 1 TABLET BY MOUTH EVERY MORNING ON EMPTY STOMACH- NO FOOD 1 HOUR AFTER OR 2-3HOURS BEFORE DOSE 08/14 completed Not Available Not Available Not Available Stiolto Respimat 2.5 mcg-2.5 mcg/actua tion solution for inhalatio n INHALE 2 PUFFS BY MOUTH ONCE DAILY 11/13 completed Not Available Not Available Not Available Linzess 72 mcg capsule TK ONE C PO D AC 10/22 completed Not Available Not Available Not Available Ozempic 0.25 mg or 0.5 mg (2 mg/1.5 mL) subcutane ous pen injector Inject 1 mL every week by subcutan eous route. 12/01 completed Not Available Not Available Not Available Humira(CF ) Pen 40 mg/0.4 mL subcutane ous kit 05/24 completed Not Available Not Available Not Available Actemra ACTPen 162 mg/0.9 mL subcutane ous pen injector 07/13 completed Not Available Not Available Not Available Wegovy 2.4 mg/0.75 mL subcutane ous pen injector Inject 2.4 mg every week by subcutan eous route in the morning for 30 days. 11/05 completed inject 0.25 mg SQ once weekly x 4 weeks then 0.5 mg SQ once weekly from week 5 to week 8; inject 1 mg SQ weekly from week 9 through 12; then increase to 1.7 mg SQ once weekly from week 13-16 then 2.4 mg weekly Not Available Not Available Not Available Wegovy 1.7 mg/0.75 mL subcutane ous pen injector Inject 1.7 mg every week by subcutan eous route in the morning for 30 days. 11/05 completed Not Available Not Available Not Available Wegovy 1 mg/0.5 mL subcutane ous pen injector Inject 1 mg every week by subcutan eous route in the morning for 30 days. 11/05 completed inject 0.25 mg SQ once weekly x 4 weeks then 0.5 mg SQ once weekly from week 5 to week 8; inject 1 mg SQ weekly from week 9 through 12; then increase to 1.7 mg SQ once weekly from week 13-16 then 2.4 mg weekly Not Available Not Available Not Available Wegovy 0.25 mg/0.5 mL subcutane ous pen injector [id number] 11/05 completed Not Available Not Available Not Available Wegovy 0.5 mg/0.5 mL subcutane ous pen injector Inject 0.5 mg every week by subcutan eous route in the morning for 30 days. 11/05 completed inject 0.25 mg SQ once weekly x 4 weeks then 0.5 mg SQ once weekly from week 5 to week 8; inject 1 mg SQ weekly from week 9 through 12; then increase to 1.7 mg SQ once weekly from week 13-16 then 2.4 mg weekly Not Available Not Available Not Available Paxlovid 300 mg (150 mg x 2)-100 mg tablets in a dose pack TAKE 3 TABLETS TOGETHER (TWO 150 MG NIRMATRE LVIR TABLETS AND ONE 100 MG RITONAVI R TABLET) BY MOUTH TWICE DAILY FOR 5 DAYS. 07/13 completed Not Available Not Available Not Available Ozempic 0.25 mg or 0.5 mg (2 mg/3 mL) subcutane ous pen injector inject 0.5 mg SQ once weekly with large meal x 90 days 07/13 completed Not Available Not Available Not Available Vitals Date Recorded Body height Body mass index (BMI) Body weight Heart rate Oxygen saturation Oxygen saturation in Arterial blood by Pulse oximetry Systolic blood pressure Diastolic blood pressure Provider Name and Address Organization Details Last Updated DateTime 4 162.56 cm 21.6 kg/m2 29608.6 4 g 105 /min 96 % 96 % 144 mm[Hg] 80 mm[Hg] Marivel Andressa venu, JENNIFER [place] [facility] 4 14:39:31 Social History Question Answer Notes LastModified by Organization Details LastModified Time Tobacco Smoking Status Former Smoker quit 7 yrs ago Not Available [employer] 05/11/2022 01:03:53 Do You Have An Advance Directive? No MIGRATION.[id number] [id number] Information not available 05/11/2022 What Is Your Level Of Alcohol Consumption? None MIGRATION.0301 [id number] Information not available 05/11/2022 Are You Blind Or Do You Have Difficulty Seeing? No MIGRATION.0301 [id number] Information not available 05/11/2022 What Is Your Level Of Caffeine Consumption? Moderate MIGRATION.0301 [id number] Information not available 05/11/2022 How Much Tobacco Do You Chew? None MIGRATION.0301 [id number] Information not available 05/11/2022 In The 14 Days Before Symptom Onset, Have You Had Close Contact With A Laboratory-confi rmed COVID-19 While That Case Was Ill? No MIGRATION.0301 [id number] Information not available 05/11/2022 In The 14 Days Before Symptom Onset, Have You Had Close Contact With A Person Who Is Under Investigation For COVID-19 While That Person Was Ill? No MIGRATION.0301 [id number] Information not available 05/11/2022 Are You Deaf Or Do You Have Serious Difficulty Hearing? No MIGRATION.0301 [id number] Information not available 05/11/2022 What Type Of Diet Are You Following? REGULAR MIGRATION.0301 [id number] Information not available 05/11/2022 Which Illicit Or Recreational Drugs Have You Used? None MIGRATION.0301 [id number] Information not available 05/11/2022 Do You Or Have You Ever Used E-cigarettes Or Vape? 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 0 MIGRATION.0301 [id number] Information not available 05/11/2022 Have There Been Any Changes To Your Family Or Social Situation? No MIGRATION.0301 [id number] Information not available 05/11/2022 What Is The Fluoride Status Of Your Home? Unknown MIGRATION.0301 [id number] Information not available 05/11/2022 When Did You Quit Smoking? 6-10yearssincelastc igarette MIGRATION.0301 [id number] Information not available 05/11/2022 Are There Any Guns Present In Your Home? No MIGRATION.0301 [id number] Information not available 05/11/2022 Do You Use Insect Repellent Routinely? No MIGRATION.0301 [id number] Information not available 05/11/2022 Where Do You Live? SingleLevelHouse MIGRATION.0301 [id number] Information not available 05/11/2022 Do You Have A Medical Power Of Soaker Meat? No MIGRATION.0301 [id number] Information not available 05/11/2022 What Was The Date Of Your Most Recent Tobacco Screening? 07/14/2023 [email or web address] Information not available 07/14/2023 Do You Have Any Pets? Yes MIGRATION.0301 [id number] Information not available 05/11/2022 What Is Your Relationship Status? MIGRATION.0301 [id number] Information not available 05/11/2022 Do You Use Your Seat Belt Or Car Seat Routinely? Yes MIGRATION.0301 [id number] Information not available 05/11/2022 Do You Have Smoke And Carbon Monoxide Detectors In Your Home? Yes MIGRATION.0301 696013 Information not available 05/11/2022 Do You Use Any Illicit Or Recreational Drugs? No MIGRATION.0301 [id number] Information not available 05/11/2022 Do You Use Sunscreen Routinely? No MIGRATION.0301 550783 Information not available 05/11/2022 How Many Years Have You Smoked Tobacco? 48 MIGRATION.0301 547248 Information not available 05/11/2022 Have You Recently Traveled Abroad? No MIGRATION.0301 [id number] Information not available 05/11/2022 Do You Have Any Dietary Restrictions? No MIGRATION.0301 099577 Information not available 05/11/2022 Do You Or Have You Ever Used Any Other Forms Of Tobacco Or Nicotine? No MIGRATION.0301 167656 Information not available 05/11/2022 Sex: Female Functional Status Question Answer Note LastModified by Organizat ion Details LastModified Time Do you have difficulty walking or climbing stairs? Yes due to knees MIGRATION.[id number] Information not available 05/11/2022 Do you have transportation difficulties? No MIGRATION.[id number] Information not available 05/11/2022 Are you able to walk? YESWOREST MIGRATION.872320 0615 Information not available 05/11/2022 Do you have difficulty doing errands alone? No MIGRATION.[id number] 1790 Information not available 05/11/2022 Are you able to care for yourself? Yes MIGRATION.[id number] Information not available 05/11/2022 Do you have difficulty dressing or bathing? No MIGRATION.[id number] 6808 Information not available 05/11/2022 What is your exercise level? Occasional MIGRATION.[id number] Information not available 05/11/2022 Mental Status Question Answer Note LastModified by Organizat ion Details LastModified Time Do you have difficulty concentrating, remembering or making decisions? No MIGRATION.[id number] Information not available 05/11/2022 Family History Relationship Description Onset Age of this Age Resolved Age Notes LastModified by Organization Details LastModified Time Daughter Heart disease MIGRATION.728 [id number] Not available 05/11/2022 01:06:08 Daughter Malignant tumor of cervix MIGRATION.718 [id number] Not available 05/11/2022 01:06:08 Daughter Cerebrovascu lar accident MIGRATION.577 [id number] Not available 05/11/2022 01:06:08 Unspecified Relation Fibromyalgia MIGRATION.03 0 [id number] Not available 05/11/2022 01:06:09 Sister Rheumatoid arthritis MIGRATION.151 [id number] Not available 05/11/2022 01:06:09 Sister Malignant tumor of lung MIGRATION.222 [id number] Not available 05/11/2022 01:06:09 Mother Neuropathy MIGRATION.782 [id number] Not available 05/11/2022 01:06:09 Sister Arthritis Not available 11/14/2023 10:56:47 Sister Osteoporosis Not availa ble 11/14/2023 10:57:05 Notes:Mother 95 pro blems with back and neuropathy. Father 93 infirmities.. Five brothers three living and in good health. One in MVA and other OD.. Five sisters three are living. One of lung cancer and one from COPD. The other four or living and in good health. Medical History Condition Response BLINDNESS N NERVE DISEASE N RHEUMATIC FEVER N BLADDER PROBLEMS N KIDNEY STONES N MRSA N OTHER # 1 N POLIO N LUNG DISEASE/DISORDER Y RADIATION / CHEMOTHERAPY Y COPD Y Other # 2 N BLOOD DISEASES N SURGERY N EAR OR HEARING PROBLEMS Y MUMPS N BOWEL PROBLEMS N DEPRESSION (INCLUDING POST ) Y STROKE/TIA N THYROID DISEASE Y ULCERS N BENIGN PROSTATIC HYPERPLASIA N MEASLES N MYOCARDIAL INFARCTION N OBESITY N GERD/NAUSEA Y ANEURYSM N URINARY/BLADDER/KIDNEY PROBLEMS Y CORONARY ARTERY DISEASE (CAD) N ADDICTION CONCERNS N ENDOMETRIOSIS N Impotence N USE OF BLOOD THINNERS Y SKIN PROBLEMS N GASTROINTESTINAL DISORDER N PERIPHERAL VASCULAR DISEASE N MUSCLE,JOINT OR BONE PROBLEMS Y GASTROINTESTINAL BLEEDING N BLOOD CLOTS Y ASTHMA Y CATARACTS N USE OF NSAIDS Y ERECTILE DYSFUNCTION N VARICOSITIES N GI PROBLEMS N Low Testosterone N INFERTILITY N AIDS/HIV N CHEMOTHERAPY / RADIATION N LIVER DISEASE N MALE HYPOGONADISM N HYPERTENSION N Deficiency N ANXIETY DISORDER Y BLOOD TRANSFUSION N ANEMIA/BLOOD DISORDER Y CHRONIC EAR INFECTIONS N BRONCHITIS Y TUBERCULOSIS N GLAUCOMA N FOOT PROBLEM N DIVERTICULITIS N CHICKENPOX N SLEEP APNEA N INFECTIOUS DISEASE N HEART ARRHYTHMIA N PROSTATE N INSOMNIA N HIGH CHOLESTEROL / HYPERLIPIDEMIA Y HYPERTHYROIDISM N EYE PROBLEMS Y NEUROLOGICAL PROBLEMS N EDEMA N CHRONIC PAIN SYNDROME Y HYPOTHYROIDISM Y CAROTID BLOCKAGE N CONSTIPATION N BACK / NECK PROBLEMS Y HAVE YOU BEEN HOSPITALIZED OR SEEN IN [facility] IN THE PAST YEAR ? Y ATHEROSCLEROSIS N BREAST PROBLEMS N DIALYSIS N ECZEMA N FIBROMYALGIA Y OSTEOPOROSIS Y ARTHRITIS Y NO SIGNIFICANT PAST MEDICAL HISTORY N APPENDICITIS N DIABETES, TYPE N BAD TEETH N ENT N HEARTBURN / REFLUX Y AUTISM SPECTRUM DISORDER (ASD) N HEPATITIS / LIVER DISEASE N PULMONARY DISEASE Y GOUT N SLEEP DISORDER N ALZHEIMER'S DISEASE N Brain Problems N HERPES N DEMENTIA N HEADACHES/MIGRAINES Y SEIZURES/EPILEPSY N VASCULAR DISEASE N PACEMAKER N Blood Disorder N DIZZINESS N HEART DISEASE/HEART PROBLEMS N KIDNEY DISEASE N MULTIPLE SCLEROSIS N CARDIAC ARRHYTHMIA N CANCER: SPECIFY Y ATRIAL FIBRILLATION N Gall Stones Y PULMONARY EMBOLISM N AUTOIMMUNE DISEASE N Gynecological History Statement/Question Response Date of Last Pap Date of Last Mammogram 11/14/2019 Date of Last Colonoscopy 06/23/2020 Most Recent Bone Density 08/14/2019 Obstetrics History GPAL:G 0 P 0 0 0 0 Immunizations Vaccine Type Date Status Note Provider Nam e and Address Organization Details Recorded Time Influenza, split virus, trivalent, preservative 8 completed Not Available [employer] 05/11/2022 01:30:00 Influenza, split virus, trivalent, preservative 0 completed Not Available [employer] 05/11/2022 01:30:01 Td (adult), 2 Lf tetanus toxoid, preservative free, adsorbed 4 completed Lamine Cedeño MD [address] [facility] [place], [address], [place], [address], [facility] [employer] [facility] 11/16/2023 17:02:20 Pneumococcal conjugate PCV20, polysaccharide [id number] conjugate, adjuvant, PF 4 completed Adelia Swift MA null, [place] [facility] [employer] [facility] 01/23/2024 17:02:44 Past Encounters Encounter ID Performer Location Encounter Start Date Encounter Closed Date Diagnosis/Indication Diagnosis SNOMED-CT Code Diagnosis ICD10 Code [id number] Kd Gregorio DPM [facility] [place] [address] [facility], [facility] [address] [place] [address] 01/23/2024 15:14:18 01/24/2024 17:40:14 Idiopathic peripheral neuropathy [id number] G60.9 Prediabetes 280219999 R7 3.03 Muscle wea kn[place] of limb 702219042 M62.81 Bunion 667009123 M21.61 9 Hammer toe 395236680 M20 .41 M20.42 [id number] Lamine Cedeño MD [facility] Internal Med [facility] [address] [facility] [place] [address] 02/19/2024 14:31:49 02/19/2024 15:26:50 Adult health examination [id number] Z00.00 Overactive urinary bladder 136619440 N32.81 Prediabetes 546634396 R7 3.03 Restless legs 34451897 G 25.81 Iron defic iency anemia 31525265 D50.9 Bilateral osteoarthritis of knees [id number] 35229 M17.0 Anxiety disorder 9444256 06 F41.9 Bilateral carpal tunnel syndrome [id number] 7194984 G56.03 Chronic ob structive pulmonary disease 70616570 J44.9 Hypothyroidism 92102057 E03.9 Nodule of lung 906059445 R91.1 Osteoporosis 28431725 M8 1.0 Pneumonia 570016477 J18. 9 Chest wall pain 93844159 6 R07.89 Health Concerns Section Related Observation LastModified by Organization Detai ls LastModified Time None Recorded Concern Status LastModified by Organization Details LastModified Time None Recorded Payers Encounter Date Sequence Insurance Name Policy Number Policy Nicholas Covered Member ID Nicholas Member ID Guarantor Name 02/19/2024 1 [facility] (MEDICARE REPLACEMENT/AD VANTAGE - PPO) [id number] Alta Vargas [id number] Alta Vargas 02/19/2024 2 [place]SECOND[place]AN WHEN MEDICARE OR MEDICARE REPLACEMENT PRIMARY) Alta Vargsa [id number] Alta Vargas Notes Date Note Type Note Provider Name and Address Organization Details Recorded Time 02/19/2024 text/html Pt is a 67 y/o h ere for f/uwas in the hospital, record reviewedShe also was recently in [facility] for pneumonia. She C/o right side pain radiating around to her back. Pain Level is 10/10. Only time she gets relief is when she's laying down.Does still have a cough but Denies any SOB. Records in chartshe gets spasms and burning like pain on the right side of the abd wall, recent CT abd showed stool impaction, moving her bowel better COPD- has seen pulmonology, PFT- 12/27/2022, on inhalersMeds- Combivent 20mcg/100mcg QID, and also uses a nebulizer Ex smoker- smoked one and half kasey x 48 yrs, quit in 2016, now vapes Lung nodules, seeing Dr finnegan, suspicious for cancer, had another CT chest and waiting for the results, had bronch and biopsy, has seen radiation oncology and was getting the RT, no w has been getting smaller Anxiety- not on meds, was taking xanax Fibromyalgia- Dr. Biggs diag her years agoMeds- Duloxetine 60mg daily Vitamin D def- Uses OTC meds Iron def Anemia- had iv infusion by hematology Neuropathy- in both feet. tingling and numbnessMeds- was on Gabapentin 300mg bid, stopped due to dizziness Possible Lung cancer - Diag 2022- Had 2 treatments of radiationOn Eliquis DVT- in 2022-Meds- was on Eliquis 5mg BID Urinary Incontinence- Has been on meds in the past. Rheumatoid Arthritis- Sees Rheumatology and is on medsMeds- Morphine ER 15mg BID, Tramadol 50mg Hypothyroidism- on medsMeds- Synthroid 75mcg daily RLS- meds helpMeds- Pramipexole 0.25mg HS Osteoarthritis of the knees- gets shots from [facility] Osteoporosis- was on meds, Alendronate and Boniva, stopped due to possible side effect's Compression fx spine, s/p vertebroplasty Pre diabetes- watching diet, was on ozempic from endo dr richardson GERD- meds help, was having vomiting, had EGD,sees dr carlton Cedeño MD [address] [facility] [place], [facility] [address], [place], [address], [place] [facility] 02/19/2024 15:25:44 OBGyn Episode No OBEpisode recorded.
--- OUTSIDE RECORDS SUMMARY | 2024-02-23 12:15 | XMS_ITS | Data Portability ---
Author Organization [place] [facility] [email or web address], Main Office Address [address] [place] [address] Care Team Providers Care Maintenance Mgr Name Role Phone LAMINE CEDEÑO Primary Care Provider LAMINE CEDEÑO Referring Provider [phone] Assessment Encounter Date Assessment Date Assessment LastModified by Organization Details LastModified Time 11/14/2023 11/14/2023 This note is dictated and transcribed by [employer]. Certified Green Building Engineer variances may occur. Despite proofreading, typographical errors may occur. Occasional wrong-word or 'ytvhv-y-uwie' substitutions may have occurred due to the inherent limitations of voice recording. Read the chart carefully and recognize, using context, where substitutions have occurred. Not available 11/14/2023 11:00:39 01/23/2024 01/23/2024 This note is dictated and transcribed by [employer]. Certified Green Building Engineer variances may occur. Despite proofreading, typographical errors may occur. Occasional wrong-word or 'bxxcq-n-dzhu' substitutions may have occurred due to the inherent limitations of voice recording. Read the chart carefully and recognize, using context, where substitutions have occurred. Not available 01/24/2024 17:39:13 Plan of Treatment Reminders Order Date Submit Date Provider Last Modified By Organization Details Last Modified Time Details Appointments None recorded. Lab None recorded. Referral pain management referral - Please call patient to schedule. 2023 1203 024 [facility], [address], [place], [address], 14:37:40 Procedures None recorded. Surgeries None recorded. Imaging electromyo gram + nerve conduction study 2023 024 [facility] (Cardiology & Emg), [address], [place], [address], 4 11:54:21 Medication Orders amitriptyl ine 25 mg tablet [address] [facility] #[id number], [address], [place], [address], 4 15:25:18 Patient TargetsNo targets recorded. Patient InstructionsNo instructions recorded. Reason for Referral Pain Management Referral for Chest wall pain Please call patient to schedule. Referring Physician: Lamine Cedeño, Internal Medicine, Encounter Date: 11/16/2023 Results Created Date Observation Date Name Description Value Unit Range Abnormal Flag Note LastModifiedBy Organization Detail LastModifiedTime 10/30/19 24 10/30/2023 CT, chest , w/o contr ast No observ ation record ed. Not Available 2023 09:41:06 01/01/20 24 01/01/2024 scree miguel breas t damien, bilat [facility] [address] [place] [address] Patieduarda t Name: ALTA ANTUNEZ Access ion #: [id number] Sex: F : 1955 6 Dictat ed By: Tesha Kothari Attend ing Physic az: VON CEDEÑO ER Orderi Physic az: VON CEDEÑO ER Exam Date: 2023 14:24 PM Exam Name: MG SCRN BREAST DAMIEN BILAT Admitt ing Diagno sis(es ): PROCED URE: SCREEN ING MAMMOG DINA WITH TOMOSY NTHESI S REASON FOR EXAM: SCREEN ING COMPAR BETTIE: SCREEN ING BREAST DAMIEN, BILAT 3D on DOS: 11/14/19 , SCREEN ING BREAST DAMIEN, BILAT 3D on DOS: 11/13/18 , SCREEN ING BREAST DAMIEN, BILAT 3D on DOS: TECHNI QUE: Bilate ral CC and MLO views obtain ed. Images were obtain ed using a Digita l Tomosy nthesi s Unit. Standa rd 2D and 3D Tomosy nthesi s images were review ed. FINDIN GS: BREAST COMPOS ITION: B - There are scatte red areas of fibrog landul ar densit y. In the right breast , no asymme trical parenc hymal patter n, bogdan ectura l distor tion, pleomo rphic microc alcifi cation s or masses . In the left breast , no asymme trical parenc hymal patter n, bogdan ectura l distor tion, pleomo rphic microc alcifi cation s or masses . IMPRES FERNANDA: No findin gs of malign malorie. RECOMM ENDATI ON: Recomm end annual mammog dina. ASSESS MENT: BIRADS : 2 - Benign Page 1 [facility] [address] [place] [address] Patien t Name: ALTA ANTUNEZ Access ion #: [id number] Sex: F : 1955 6 Dictat ed By: Tesha Kothari Attend ing Physic az: PATRICIA ISSA Physic az: VNO CEDEÑO ER Exam Date: 2023 14:24 PM Exam Name: MG SCRN BREAST DAMIEN BILAT Admitt ing Diagno sis(es ): Electr onical ly Signed by: Tesha Kothari at 2023 15:05: 32 PM Page 2 [email or web address] [facility] (Imaging) [address] [place], [address], 01/10/2024 16:19:30 01/02/20 24 08/22/2023 upper endos copy proce dure (EGD) (PROC ) No observ ation record ed. Not Available 2023 12:01:05 01/02/20 24 12/29/2023 colon oscop y scree miguel (PROC ) No observ ation record ed. Not Available 2023 12:01:00 01/02/20 24 12/29/2023 colon oscop y scree miguel (PROC ) No observ ation record ed. Not Available 2023 12:00:47 01/02/20 24 08/22/2023 upper endos copy proce dure (EGD) (PROC ) No observ ation record ed. Not Available 2023 12:00:41 01/23/20 elect romyo gram + nerve condu ction study No observ ation record ed. [email or web address] [facility] (Cardiology & Emg) [address], [place], [address], 01/23/2024 11:56:57 01/24/2007/10/2023 DEXA, axial skele ton No observ ation [...] Time Numbness and tingling sensation of skin 42477533918 2 Active 2021 Not Available [facility] 3 01:16:23 Irritable bowel syndrome 78396409 Completed Not Available [facility] 3 01:16:23 Lumbar radiculop athy 653265731 Active 2016 Not Available [facility] 3 01:16:24 Chronic obstructi ve pulmonary disease 08457063 Active 2019 Not Available [facility] 3 01:16:24 Urinary incontine nce 544049013 Active Not Available [facility] 3 01:16:24 Nausea and vomiting 89136364 Active 2021 Not Available [facility] 3 01:16:24 Asthma 280180016 Completed 201708/12/2019 Not Available [facility] 3 01:16:24 Anxiety disorder 923612675 Active Lamine Cedeño MD [address], [place], [address] , [employer] [facility] [employer] [facility] 4 15:11:34 Hand joint pain 166771169 Active Not Available [facility] 3 01:16:24 Fibromyal justin 621444793 Active Not Available [facility] 3 01:16:24 Lumbar sprain 069318620 Completed Not Available [facility] 3 01:16:24 Gastric reflux 433465750 Completed 201608/12/2019 Not Available [facility] 3 01:16:25 Gastroeso phageal reflux disease 587256817 Active 2019 Lamine Cedeño MD [address], [place], [address] , [employer] [facility] 4 14:34:15 Pure hyperchol esterolem ia 443694875 Active Not Available [facility] 3 01:16:25 Anemia 456287710 Active 2022 Lamine Cedeño MD [address], [place], [address] , [employer] [facility] [employer] [facility] 4 14:33:51 Low back pain 683964555 Active 2020 Not Available [facility] 3 01:16:25 Chest pain 23008475 Completed 201712/03/2018 Not Available [facility] 3 01:16:25 Pain of right wrist 76686832382 9100 Active 2020 Not Available [facility] 3 01:16:25 Osteoarth ritis of left knee joint 17508881735 9109 Active 2022 Not Available [facility] 3 01:16:26 Osteoarth ritis of right knee joint 91329830268 9100 Active 2022 Not Available [facility] 3 01:16:26 Restless legs 83176074 Active Lamine Cedeño MD [address], [place], [address] , [employer] 4 14:36:46 Vitamin D deficienc y 82260916 Active 2022 Lamine Cedeño MD [address], [place], [address] , [employer] 4 14:35:29 Depressiv e disorder 58161169 Active Not Available [employer] 3 01:16:26 Chronic pain syndrome 903475478 Active 2017 Lamine Cedeño MD [address], [place], [address] , [employer] 4 15:11:54 Hypothyro idism 70607912 Active 2020 Lamine Cedeño MD [address], [place], [address] , [employer] 4 15:12:11 Trigger finger Active Not Available [facility] 3 01:16:27 Swelling of lower leg 173118824 Active 2022 Not Available [facility] 3 01:16:27 Pain of bilateral knee joints 84132677881 4104 Active 2022 Not Available [facility] 3 01:16:27 Anxiety 65835712 Completed Not Available [facility] 3 01:16:28 Cervical radiculop athy 51223827 Active Not Available [facility] 3 01:16:28 Carpal tunnel syndrome 83122146 Active Lamine Cedeño MD [address], [place], [address] , [employer] 4 15:11:37 Muscle pain 19674581 Active 2021 Not Available [facility] 3 01:16:28 Urethral caruncle 8406947 Active Not Available [facility] 3 01:16:28 Rheumatoi d arthritis 44902066 Active 2018 Lamine Cedeño MD [address], [place], [address] , [place] [facility] 4 15:12:22 Prediabet es 093210488 Active 2021 Lamine Cedeño MD [address], [place], [address] , [place] [facility] 4 14:35:00 Brachial neuritis 36046244 Active Not Available [facility] 3 01:16:29 COVID-19 505470959 Active 2021 Not Available [facility] 3 01:16:29 Postchole cystectom y syndrome 56452740 Active 2016 Not Available [facility] 3 01:16:29 Paresthes ia of upper limb 11825132 Active 2021 Not Available [facility] 3 01:16:30 Iron deficienc y anemia 74340465 Active 2022 Lamine Cedeño MD [address], [place], [address] , [place] [facility] 4 14:36:36 Focal motor weakness 668852133 Active 2022 Ana Paula Richardson MD [address], [place], [address] , [place] [facility] 3 15:20:36 Abnormal uterine bleeding 97765092956 100 Active 2022 Ana Paula Richardson MD [address], [place], [address] , [place] [facility] 3 15:21:20 Effusion of joint of left knee 54835722643 9105 Active 2022 LORIE Villanueva [address], [place], [address] , [place] [facility] 3 10:39:00 MRI of head abnormal 70087179346 9107 Active 2022 Ana Paula Richardson MD [address], [place], [address] , [facility] 3 22:56:04 Bilateral wrist pain 72567745685 940472 Active 2022 Joan Werner CNA null, [place] [facility] 3 10:01:16 Bilateral carpal tunnel syndrome 45363408851 820824 Active 2022 LORIE Villanueva [address], [place], [address] , [facility] 3 11:32:59 Pain of bilateral hands 89417957874 202120 Active 2022 Joan Werner CNA null, [place] [facility] 3 11:35:45 Postmenop ausal osteoporo sis 696817643 Active 2022 Lamine Cedeño MD [address], [place], [address] , [facility] 4 14:35:50 Pain of right knee joint 64396857072 4100 Active 2023 JENNIFER Alvarado, [place] [facility] 4 12:33:15 Pain of left knee joint 33232926933 4107 Active 2023 JENNIFER Alvarado, [place] [facility] 4 12:33:29 Bilateral osteoarth ritis of knees 30413342853 9107 Active 2023 Lamine Cedeño MD [address], [place], [address] , [facility] 4 14:34:09 Overactiv e urinary bladder 681866682 Active 2023 Lamine Cedeño MD [address], [place], [address] , [facility] 4 14:37:06 Nodule of lung 307045917 Active 2023 Lamine Cedeño MD [address], [place], [address] , [place] [facility] 4 15:16:23 Osteoporo sis 37714715 Active 2023 Lamine Cedeño MD [address], [place], [address] , [place] [facility] [place] [facility] 4 15:18:14 Rib pain 051145660 Active 2023 Adelia Swift MA null, [place] [facility] 4 14:27:46 Pain of bilateral knee regions 93586432031 4102 Active 2023 Lamine Cedeño MD [address], [place], [address] , [place] [facility] 4 10:04:14 Neuropath y 762441725 Active 2023 Lamine Cedeño MD [address], [place], [address] , [place] [facility] 4 10:04:39 Edema of lower extremity 016922961 Active 2023 Kassy Gore NP [address], [place], [address] , [place] [facility] 4 15:29:24 Pulmonary embolism 63795212 Active 2023 Lamine Cedeño MD [address], [place], [address] , [place] [facility] 4 14:58:28 Diarrhea 88456451 Active 2023 Lamine Cedeño MD [address], [place], [address] , [place] [facility] 4 14:26:07 Dehydrati on 08010424 Active 2023 Lamine Cedeño MD [address], [place], [address] , [place] [facility] 4 14:27:26 Pneumonia 024453925 Active 2023 Lamine Cedeño MD [address], [place], [address] , [facility] 4 15:47:38 Hyponatre valerie 23102448 Active 2023 Lamine Cedeño MD [address], [place], [address] , [facility] 4 15:47:49 Vaginitis 11243795 Active 2023 Lamine Cedeño MD [address], [place], [address] , [facility] 4 15:49:05 Chest wall pain 454240252 Active 2023 Lamine Cedeño MD [address], [place], [address] , [facility] 15:38:50 Bronchiti s 88973870 Active 2023 Tona mckee, [place] [facility] 4 10:54:00 Ear problem 087874863 Active 2023 Tona mckee, [place] [facility] 4 10:54:22 Headache 50102921 Active 2023 Tona mckee, [place] [facility] 10:54:46 Heartburn 45168561 Active 2023 Tona mckee, [place] [facility] 4 10:55:24 Disorder of lung 44165073 Active 2023 Tona Carson null, [place] [facility] 4 10:55:37 Disorder of thyroid gland 29461236 Active 2023 Tona mckee, [place] [facility] 10:56:19 Idiopathi c periphera l neuropath y 66191728 Active 2023 Kd Gregorio DPM [address], [place], [address] , [facility] [employer] [facility] 4 11:00:14 Muscle weakness of limb 142778459 Active 2023 Kd Gregorio DPM [address], [place], [address] , [facility] [employer] [facility] 4 11:01:00 Bunion 533019997 Active 2023 Kd Gregorio DPM [address], [place], [address] , [facility] [employer] [facility] 4 11:01:06 Hammer toe 568465960 Active 2023 Kd Gregorio DPM [address], [place], [address] , [facility] [employer] [facility] 4 11:02:01 Laceratio n of skin 864292780 Active 2023 Lamine Cedeño MD [address], [place], [address] , [facility] [employer] [facility] 4 15:52:10 Right flank pain 639952438 Active 2023 Adelia Swift MA [facility], [facility] [employer] [facility] 4 11:57:01 Notes:Some problems listed i n Documents: #[id number], #[id number], #[id number] could not be added to this patient's chart. Please review these documents and add these problems to the patient's chart manually as needed. Problem Notes None recorded. Procedures Surgical History Date Name Laterality Status Provider Name and Address Organization Details Recorded Time 11/08/19 23 Ortho - Cortisone Injection completed Kolton Gutierrez MD [address], [place], [address], [facility] [employer] [facility] 11/07/2022 10:03:10 06/24/19 21 Date of Last Colonoscopy completed Not Available [facility] 05/11/2022 01:05:55 08/14/19 20 Most Recent Bone Density completed Not Available [facility] 05/11/2022 01:05:56 Cataract Surgery completed Not Available [facility] 05/11/2022 01:06:02 Knee Surgery completed Not Available [facility] 05/11/2022 01:06:02 ligation of bilateral fallopian tubes completed Not Available [facility] 05/11/2022 01:06:02 Cholecystectomy completed Not Available [facility] 05/11/2022 01:06:02 Gallbladder Surgery completed Not Available [facility] 05/11/2022 01:06:02 Imaging Results Imaging Date Name Status LastModified by Organization Details LastModified Time 10/30/2023 CT, chest, w/o contrast completed Information not available 11/02/2023 09:41:06 01/01/2024 screening breast damien, bilat completed [email or web address] [facility] (Imaging) [address] [place], [address], 01/10/2024 16:19:30 08/22/2023 upper endoscopy procedure (EGD) (PROC) completed Information not available 01/03/2024 12:01:05 12/29/2023 colonoscopy screening (PROC) completed Information not available 01/03/2024 12:01:00 12/29/2023 colonoscopy screening (PROC) completed Information not available 01/03/2024 12:00:47 08/22/2023 upper endoscopy procedure (EGD) (PROC) completed Information not available 01/03/2024 12:00:41 01/23/2024 electromyogram + nerve conduction study completed [address] (Cardiology & Emg) [address] [place] [address], [address], 01/23/2024 11:56:57 07/10/2023 DEXA, axial skeleton completed Information not available 01/24/2024 15:39:51 02/08/2024 CT, abdomen + pelvis, w/ contrast completed [facility] Information not available 02/20/2024 18:43:38 Procedure Notes None recorded. Medical Equipment None Reported. Allergies Allergen ID Allergen Name Allergen Category Reaction Reaction Severity Criticality Documentation Date Start Date Code Code System Note Provider Name and Address Organization Details Recorded Time 2470 Avelox medicatio n rash Not available Not available 05/11/2022 80414 6 RxNorm Not Available [facility] 3 01:30:21 2471 codeine medicatio n nausea Not available Not available 05/11/2022 2670 RxNorm Cecilia JENNIFER Givens null, [place] [facility] [place] [employer] [facility] 4 12:28:49 Medications Name Sig Start Date Stop [...] clotrimaz ole 10 mg milan TAKE 1 MILNA/L OZENGE 5 TIMES DAILY 11/13 completed Not [...] with needle 1 mL 29 gauge x 09/25 USE DIRECTED WITH WEEKLY B12 SHOTS WEEKLY. [...] mg by injectio n route. 08/14 completed [facility]: [id number] 06-30 Not Available Not Available Not Available amitripty [...] administ ered by the provider 01/07 completed [facility]: [id number] 08-27 Not Available Not Available Not [...] mg by injectio n route. 07/13 completed [facility] [id number] 06-11 Not Available Not Available Not Available [...] 0.25 mg/0.5 mL subcutane ous pen injector [id number] 2 11/05 completed Not Available Not Available [...] Details Last Updated DateTime 4 162.56 cm 21.5 kg/m2 86920.0 5 g 86 /min 98 % 98 % 124 mm[Hg] 72 mm[Hg] Joanna Luque [facility] [employer] [facility] 4 10:45:25 Date Recorded Body height Body mass index (BMI) Body weight Body temperature Heart rate Oxygen saturation Oxygen saturation in Arterial blood by Pulse oximetry Systolic blood pressure Diastolic blood pressure Provider Name and Address Organization Details Last Updated DateTime 4 162.56 cm 21.5 kg/m2 59031.0 5 g 97.6 [degF] 90 /min 98 % 98 % 126 mm[Hg] 70 mm[Hg] Toya Goel CMA [facility] [employer] [facility] 4 15:20:37 Date Recorded Body height Body mass index (BMI) Body weight Body temperature Heart rate Oxygen saturation Oxygen saturation in Arterial blood by Pulse oximetry Systolic blood pressure Diastolic blood pressure Provider Name and Address Organization Details Last Updated DateTime 4 162.56 cm 21.8 kg/m2 26919.2 3 g 97.2 [degF] 97 /min 98 % 98 % 160 mm[Hg] 86 mm[Hg] Marivel lea [facility] [employer] [facility] [employer] [facility] 4 12:03:52 Date Recorded Body height Body mass index (BMI) Body weight Heart rate Respiratory rate Oxygen saturation Oxygen saturation in Arterial blood by Pulse oximetry Systolic blood pressure Diastolic blood pressure Provider Name and Address Organization Details Last Updated DateTime 4 162.56 cm 21.8 kg/m2 15085.2 3 g 96 /min 14 /min 98 % 98 % 124 mm[Hg] 80 mm[Hg] Heidi Weber [employer] [facility] [employer] [facility] 4 15:48:13 Date Recorded Body height Body mass index (BMI) Body weight Heart rate Oxygen saturation Oxygen saturation in Arterial blood by Pulse oximetry Systolic blood pressure Diastolic blood pressure Provider Name and Address Organization Details Last Updated DateTime 4 162.56 cm 21.6 kg/m2 65336.6 4 g 105 /min 96 % 96 % 144 mm[Hg] 80 mm[Hg] Marivel Andressa venu JENNIFER [place] [facility] 4 14:39:31 Social History Question Answer Notes LastModified by Organization Details LastModified Time Tobacco Smoking Status Former Smoker quit 7 yrs ago Not Available [employer] 05/11/2022 01:03:53 Do You Have An Advance Directive? No MIGRATION.0301 [id number] Information not available 05/11/2022 What Is Your Level Of Alcohol Consumption? None MIGRATION.0301 [id number] Information not available 05/11/2022 Are You Blind Or Do You Have Difficulty Seeing? No MIGRATION.0301 [id number] Information not available 05/11/2022 What Is Your Level Of Caffeine Consumption? Moderate MIGRATION.0301 [id number] Information not available 05/11/2022 How Much Tobacco Do You Chew? None MIGRATION.0301 [id number] Information not available 05/11/2022 In The 14 Days Before Symptom Onset, Have You Had Close Contact With A Laboratory-confi rmed COVID-19 While That Case Was Ill? No MIGRATION.0301 [id number] Information not available 05/11/2022 In The 14 Days Before Symptom Onset, Have You Had Close Contact With A Person Who Is Under Investigation For COVID-19 While That Person Was Ill? No MIGRATION.0301 [id number] Information not available 05/11/2022 Are You Deaf Or Do You Have Serious Difficulty Hearing? No MIGRATION.0301 [id number] Information not available 05/11/2022 What Type Of Diet Are You Following? REGULAR MIGRATION.0301 [id number] Information not available 05/11/2022 Which Illicit Or Recreational Drugs Have You Used? None MIGRATION.0301 [id number] Information not available 05/11/2022 Do You Or Have You Ever Used E-cigarettes Or Vape? 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 0 MIGRATION.0301 [id number] Information not available 05/11/2022 Have There Been Any Changes To Your Family Or Social Situation? No MIGRATION.0301 [id number] Information not available 05/11/2022 What Is The Fluoride Status Of Your Home? Unknown MIGRATION.0301 [id number] Information not available 05/11/2022 When Did You Quit Smoking? 6-10yearssincelastc igarette MIGRATION.0301 [id number] Information not available 05/11/2022 Are There Any Guns Present In Your Home? No MIGRATION.0301 [id number] Information not available 05/11/2022 Do You Use Insect Repellent Routinely? No MIGRATION.0301 [id number] Information not available 05/11/2022 Where Do You Live? [place]House MIGRATION.0301 [id number] Information not available 05/11/2022 Do You Have A Medical Power Of Tape Librarian? No MIGRATION.0301 [id number] Information not available 05/11/2022 What Was The Date Of Your Most Recent Tobacco Screening? 07/14/2023 [email or web address] Information not available 07/14/2023 Do You Have Any Pets? Yes MIGRATION.0301 [id number] Information not available 05/11/2022 What Is Your Relationship Status? MIGRATION.0301 [id number] Information not available 05/11/2022 Do You Use Your Seat Belt Or Car Seat Routinely? Yes MIGRATION.0301 [id number] Information not available 05/11/2022 Do You Have Smoke And Carbon Monoxide Detectors In Your Home? Yes MIGRATION.0301 [id number] Information not available 05/11/2022 Do You Use Any Illicit Or Recreational Drugs? No MIGRATION.0301 [id number] Information not available 05/11/2022 Do You Use Sunscreen Routinely? No MIGRATION.0301 459893 Information not available 05/11/2022 How Many Years Have You Smoked Tobacco? 48 MIGRATION.0301 322596 Information not available 05/11/2022 Have You Recently Traveled Abroad? No MIGRATION.0301 044528 Information not available 05/11/2022 Do You Have Any Dietary Restrictions? No MIGRATION.0301 644386 Information not available 05/11/2022 Do You Or Have You Ever Used Any Other Forms Of Tobacco Or Nicotine? No MIGRATION.0301 140446 Information not available 05/11/2022 Sex: Female Functional Status Question Answer Note LastModified by [employer] Details LastModified Time Do you have difficulty walking or climbing stairs? Yes due to knees MIGRATION.381858 2882 Information not available 05/11/2022 Do you have transportation difficulties? No MIGRATION.521869 9013 Information not available 05/11/2022 Are you able to walk? YESWOREST MIGRATION.839180 0018 Information not available 05/11/2022 Do you have difficulty doing errands alone? No MIGRATION.279743 7104 Information not available 05/11/2022 Are you able to care for yourself? Yes MIGRATION.718438 4046 Information not available 05/11/2022 Do you have difficulty dressing or bathing? No MIGRATION.902883 9496 Information not available 05/11/2022 What is your exercise level? Occasional MIGRATION.540000 1138 Information not available 05/11/2022 Mental Status Question Answer Note LastModified by [employer] Details LastModified Time Do you have difficulty concentrating, remembering or making decisions? No MIGRATION.[id number] 6 Information not available 05/11/2022 Family History Relationship Description Onset Age of this Age Resolved Age Notes LastModified by Organization Details LastModified Time Daughter Heart disease MIGRATION.764 [id number] Not available 05/11/2022 01:06:08 Daughter Malignant tumor of cervix MIGRATION.272 [id number] Not available 05/11/2022 01:06:08 Daughter Cerebrovascu lar accident MIGRATION.636 [id number] Not available 05/11/2022 01:06:08 Unspecified Relation Fibromyalgia MIGRATION.03 0 [id number] Not available 05/11/2022 01:06:09 Sister Rheumatoid arthritis MIGRATION.085 [id number] Not available 05/11/2022 01:06:09 Sister Malignant tumor of lung MIGRATION.466 7700643 Not available 05/11/2022 01:06:09 Mother Neuropathy MIGRATION.158 [id number] Not available 05/11/2022 01:06:09 Sister Arthritis Not [...] in good health. Medical History Condition Response NERVE DISEASE N BLINDNESS N RHEUMATIC FEVER N KIDNEY STONES N BLADDER PROBLEMS N MRSA N OTHER # 1 N POLIO N LUNG DISEASE/DISORDER Y RADIATION / CHEMOTHERAPY Y COPD Y Other # 2 N BLOOD DISEASES N SURGERY N EAR OR HEARING PROBLEMS Y MUMPS N DEPRESSION (INCLUDING POST ) Y BOWEL PROBLEMS N STROKE/TIA N THYROID DISEASE Y ULCERS N BENIGN PROSTATIC HYPERPLASIA N MEASLES N MYOCARDIAL INFARCTION N OBESITY N GERD/NAUSEA Y ANEURYSM N URINARY/BLADDER/KIDNEY PROBLEMS Y CORONARY ARTERY DISEASE (CAD) N ADDICTION CONCERNS N Impotence N ENDOMETRIOSIS N USE OF BLOOD THINNERS Y SKIN [...] GLAUCOMA N FOOT PROBLEM N DIVERTICULITIS N SLEEP APNEA N CHICKENPOX N INFECTIOUS DISEASE N PROSTATE N HEART ARRHYTHMIA N INSOMNIA N HIGH CHOLESTEROL / HYPERLIPIDEMIA Y EYE PROBLEMS Y HYPERTHYROIDISM N NEUROLOGICAL PROBLEMS N EDEMA N CHRONIC PAIN SYNDROME Y HYPOTHYROIDISM Y CAROTID BLOCKAGE N CONSTIPATION N BACK / NECK PROBLEMS Y HAVE YOU BEEN HOSPITALIZED OR SEEN IN [facility] IN THE PAST YEAR ? Y ATHEROSCLEROSIS [...] N ALZHEIMER'S DISEASE N Brain Problems N DEMENTIA N HERPES N SEIZURES/EPILEPSY N HEADACHES/MIGRAINES Y VASCULAR DISEASE N PACEMAKER N Blood Disorder N DIZZINESS N HEART DISEASE/HEART PROBLEMS N KIDNEY DISEASE N MULTIPLE SCLEROSIS N CANCER: SPECIFY Y CARDIAC ARRHYTHMIA N ATRIAL FIBRILLATION N Gall Stones Y PULMONARY [...] virus, trivalent, preservative 8 completed Not Available [facility] 05/11/2022 01:30:00 Influenza, split virus, trivalent, preservative 0 completed Not Available [facility] 05/11/2022 01:30:01 Td (adult), 2 Lf tetanus toxoid, preservative free, adsorbed 4 completed Lamine Cedeño MD [address] [facility], [address], [place], [address], [employer] 11/16/2023 17:02:20 Pneumococcal conjugate PCV20, polysaccharide TFZ035 conjugate, adjuvant, PF 4 completed Adelia Swift MA [facility], [facility] 01/23/2024 17:02:44 Past Encounters Encounter ID Performer Location Encounter Start Date Encounter Closed Date Diagnosis/Indication Diagnosis SNOMED-CT Code Diagnosis ICD10 Code 03621 _ATHENA_M IGRATION_ DEFAULT_1 _1 , 05/21/2020 00:00:00 05/21/2020 15:16:39 [id number] [facility] Internal Med [facility] [address] [facility], [facility] 24 [place] [address] 06/15/2020 00:00:00 06/15/2020 15:26:53 [id number] [facility] [place] [address] [facility] [address] [place] [address] 06/22/2020 00:00:00 06/22/2020 13:19:37 [id number] [facility] [address] [place] [address] 08/20/2020 00:00:00 08/23/2020 16:37:00 [id number] [facility] [place] [address] [place] [address] 08/24/2020 00:00:00 08/24/2020 16:46:40 [id number] _ATHENA_M IGRATION_ DEFAULT_1 _1 , 09/03/2020 00:00:00 09/03/2020 16:37:17 [id number] [facility] [address] [place] [address] 09/17/2020 00:00:00 09/17/2020 10:42:29 [id number] [facility] [place] [address] [place] [address] 09/21/2020 00:00:00 10/22/2020 11:11:56 [id number] [facility] [address] [place] [address] 10/08/2020 00:00:00 10/08/2020 14:56:02 [id number] [facility] Internal [facility] 24 4 [facility] 24 [place] [address] 10/12/2020 00:00:00 10/12/2020 15:32:32 [id number] _ATHENA_M IGRATION_ DEFAULT_1 _1 , 11/05/2020 00:00:00 11/05/2020 18:35:57 [id number] [facility] [place] [address] [place] [address] 11/10/2020 00:00:00 11/10/2020 15:29:21 [id number] [facility] [place] [address] [place] [address] 11/26/2020 00:00:00 11/26/2020 14:06:30 [id number] [facility] [place] [address] [place] [address] 12/03/2020 00:00:00 12/03/2020 14:28:50 [id number] [facility] [place] [address] [facility], [address] [place] [address] 12/22/2020 00:00:00 12/22/2020 17:04:45 [id number] [facility] [address] [place] [address] 01/07/2021 00:00:00 01/07/2021 10:32:37 [id number] _ATHENA_M IGRATION_ DEFAULT_1 _1 , 01/28/2021 00:00:00 01/28/2021 15:22:38 [id number] [facility] Internal Med [facility] [address] [address] 02/08/2021 00:00:00 02/08/2021 15:18:13 [id number] [facility] Internal Med [facility] [address] [facility], [address] [address] 05/24/2021 00:00:00 05/24/2021 17:02:30 [id number] _ATHENA_M IGRATION_ DEFAULT_1 _1 , 05/27/2021 00:00:00 05/27/2021 16:11:35 [id number] _ATHENA_M IGRATION_ DEFAULT_1 _1 , 09/02/2021 00:00:00 09/02/2021 15:49:54 [id number] [facility] Internal Med [facility] [address] [address] 09/20/2021 00:00:00 09/20/2021 16:34:25 [id number] [facility] [place] [address] [place] [address] 12/14/2021 00:00:00 12/15/2021 18:29:11 [id number] [facility] Internal Med [facility] [address] [address] 01/17/2022 00:00:00 01/17/2022 16:40:29 [id number] [facility] Internal Med [place] [facility] [address] [place] [address] 03/15/2022 00:00:00 03/15/2022 16:00:29 [id number] [facility] [place] [address] [place] [address] 04/18/2022 00:00:00 04/18/2022 11:32:03 [id number] Kolton Gutierrez MD [facility] [place] [address] [place] [address] 05/26/2022 14:02:44 05/26/2022 15:15:01 Pain of bilateral knee joints 6707776585 98222 M25.561 M25.562 Osteoarthr itis of right knee joint 3167902765 67164 M17.11 Osteoarthr itis of left knee joint 2703653175 70322 M17.12 Swelling of lower leg 44 0938252 R22.42 [id number] [facility] [place] [address] [place] [address] 06/30/2022 14:32:50 06/30/2022 15:27:14 Hypothyroidism 94955858 E03.9 Prediabetes 403294525 R7 3.03 Focal motor weakness 699 717887 R53.1 Abnormal u terine bleeding 1087722283 9100 N93.9 [id number] LORIE Villanueva [facility] [address] [address] 07/12/2022 10:11:40 07/12/2022 10:46:45 Osteoarthritis of right knee joint 4682761810 13524 M17.11 Osteoarthr itis of left knee joint 3336789988 21233 M17.12 Swelling of lower leg 44 3978292 R22.42 Pain of bi lateral knee joints 8624966060 97465 M25.561 M25.562 Effusion o f joint of left knee 5706736279 15827 M25.462 [id number] LORIE Villanueva [facility] [address] [address] 08/09/2022 10:37:47 08/09/2022 11:07:40 Osteoarthritis of left knee joint 9505176838 86536 M17.12 Osteoarthr itis of right knee joint 4426945446 36101 M17.11 Pain of bi lateral knee joints 0034325991 38997 M25.561 M25.562 [id number] LORIE Villanueva [facility] [address] [place] [address] 08/16/2022 09:33:39 08/16/2022 11:10:18 Osteoarthritis of left knee joint 8627394136 83108 M17.12 Osteoarthr itis of right knee joint 1482248682 46254 M17.11 Pain of bi lateral knee joints 6784711693 47258 M25.561 M25.562 Bilateral wrist pain 947 2201311 6209315 M25.531 M25.532 Bilateral carpal tunnel syndrome 0692391404 5977003 G56.03 Rheumatoid arthritis 698 43400 M06.9 Pain of bi lateral hands 0758456428 9093445 M79.641 M79.642 [id number] Kolton Gutierrez MD [facility] [place] [address] [place] [address] 11/07/2022 09:42:14 11/07/2022 10:14:38 Osteoarthritis of left knee joint 4675748694 14778 M17.12 Osteoarthr itis of right knee joint 1611597248 05538 M17.11 Pain of bi lateral knee joints 5969946232 31783 M25.561 M25.304 [id number] Ana Paula Richardson MD [facility] [place] [address] [place] [address] 12/01/2022 14:30:11 12/01/2022 15:31:07 Prediabetes 392976939 R73.03 Hypothyroidism 93359921 E03.9 Postmenopa usal osteoporosis 607525147 M81.0 [id number] LORIE Villanueva [facility] [place] [address] [place] [address] 01/19/2023 10:26:42 01/19/2023 10:56:20 Osteoarthritis of left knee joint 5231720682 68891 M17.12 Osteoarthr itis of right knee joint 2321473028 96509 M17.11 Pain of bi lateral knee joints 3733913856 54673 M25.561 M25.027 [id number] LORIE Villanueva [facility] [place] [address] [place] [address] 04/11/2023 14:02:11 04/11/2023 14:45:01 Osteoarthritis of left knee joint 0432864123 89768 M17.12 Osteoarthr itis of right knee joint 0193953395 52841 M17.11 Pain of bi lateral knee joints 0339042566 22178 M25.561 M25.759 [id number] LORIE Villanueva [facility] [place] [address] [place] [address] 07/14/2023 12:08:06 07/18/2023 16:26:00 Pain of bilateral knee joints 7040986845 68221 M25.561 M25.562 Bilateral osteoarthritis of knees 7828105288 06379 M17.0 [id number] Lamine Cedeño MD [facility] Internal Med [facility] [address] [facility] [address] 08/15/2023 14:23:37 08/15/2023 15:19:53 Adult health examination 271926384 Z00.00 Screening mammography 24 261880 Z12.31 Overactive urinary bladder 924322735 N32.81 Prediabetes 277162660 R7 3.03 Restless legs 36368061 G 25.81 Iron defic iency anemia 05735285 D50.9 Bilateral osteoarthritis of knees 4204658377 83124 M17.0 Anxiety disorder 9372203 06 F41.9 Bilateral carpal tunnel syndrome 1534729548 4000561 G56.03 Chronic ob structive pulmonary disease 23856995 J44.9 Hypothyroidism 11200134 E03.9 Nodule of lung 861538852 R91.1 Osteoporosis 68925755 M8 1.0 [id number] Lamine Cedeño MD [facility] Internal Med [place] [address] [facility] [address] 08/29/2023 09:41:26 08/29/2023 10:03:10 Pain of bilateral knee regions 2203566787 35876 M25.561 Neuropathy 865540976 G62 .9 [id number] Kassy Gore NP [facility] Internal Med [address] [facility] [address] 09/01/2023 15:13:28 09/01/2023 15:37:39 Edema of lower extremity 525600887 R60.0 [id number] Lamine Cedeño MD [facility] Internal Med [facility] [address] [facility] [address] 09/19/2023 14:07:17 09/19/2023 15:04:03 Pain of bilateral knee regions 8445083905 25609 M25.561 Neuropathy 551447456 G62 .9 Pulmonary embolism 59374 003 I26.99 Anemia 978684244 D64.9 [id number] Lamine Cedeño MD [facility] Internal [facility] [address] [facility]. [place] [address] 10/16/2023 13:59:34 10/16/2023 15:53:39 Diarrhea 90482761 R19.7 Dehydration 83781216 E86 .0 Pneumonia 052548986 J18. 9 Hyponatremia 46642533 E8 7.1 Vaginitis 33648425 N76.0 [id number] Lamine Cedeño MD [facility] Internal [place] [address] [facility] [address] 10/24/2023 14:19:21 10/24/2023 15:53:24 Chest wall pain 478430174 R07.89 [id number] Kd Gregorio DPM [facility] Pod[facility] [place] [address] [facility], [facility] 4 [place] [address] 11/14/2023 10:40:13 11/15/2023 11:32:43 Idiopathic peripheral neuropathy 72143334 G60.9 Prediabetes 082499731 R7 3.03 Muscle [place] of limb 993207001 M62.81 Bunion 197188101 M21.61 9 Hammer toe 439388215 M20 .41 M20.42 [id number] Lamine Cedeño MD [facility] Internal [place] [address] [facility] [address] 11/16/2023 15:15:02 11/16/2023 16:09:37 Chest wall pain 545046354 R07.89 Laceration of skin 57110 5007 T14.8XXA [id number] Lamine Cedeño MD [facility] Internal Med [facility] [address] [facility] [address] 12/06/2023 11:46:29 12/06/2023 12:37:06 Chest wall pain 039154561 R07.89 [id number] Kd Gregorio DPM [facility] Podiat[facility] [place] [address] [facility] [place] [address] 01/23/2024 15:14:18 01/24/2024 17:40:14 Idiopathic peripheral neuropathy 31400032 G60.9 Prediabetes 902085679 R7 3.03 Muscle [place]a [place] of limb 519528137 M62.81 Bunion 288488054 M21.61 9 Hammer toe 349476779 M20 .41 M20.42 [id number] Lamine Cedeño MD [facility] Internal Med [facility] [address] [facility] [address] 02/19/2024 14:31:49 02/19/2024 15:26:50 Adult health examination 186237755 Z00.00 Overactive urinary bladder 415694632 N32.81 Prediabetes 904395790 R7 3.03 Restless legs 09055472 G 25.81 Iron defic iency anemia 52885684 D50.9 Bilateral osteoarthritis of knees 8481744228 43273 M17.0 Anxiety disorder 7808532 06 F41.9 Bilateral carpal tunnel syndrome 4350040861 3499534 G56.03 Chronic ob structive pulmonary disease 30710931 J44.9 Hypothyroidism 92825919 E03.9 Nodule of lung 569087911 R91.1 Osteoporosis 04925752 M8 1.0 Pneumonia 397703608 J18. 9 Chest wall pain 29988072 6 R07.89 Health Concerns Section Related Observation LastModified by Organization Detai ls LastModified Time None Recorded Concern Status LastModified by Organization Details LastModified Time None Recorded Advance Directives Directive N: Payers Encounter Date Sequence Insurance Name Policy Number Policy Nicholas Covered Member ID Nicholas Member ID Guarantor Name 11/14/2023 1 [facility] (MEDICARE REPLACEMENT/AD VANTAGE - PPO) [id number] Alta Vargas [id number] Alta Vargas 11/14/2023 2 [place]ARE [place] MEDICARE REPLACEMENT PRIMARY) Alta Vargas [id number] Alta Vargas 11/16/2023 1 [facility] (MEDICARE REPLACEMENT/AD VANTAGE - PPO) [id number] Alta Vargas [id number] Alta Vargas 11/16/2023 2 [place] OR [place]ICARE REPLACEMENT PRIMARY) Alta Vargas [id number] Alta Vargas 12/06/2023 1 [facility] (MEDICARE REPLACEMENT/AD VANTAGE - PPO) [id number] Alta Vargas [id number] Alta Vargas 12/06/2023 2 [place] OR [place]ICARE REPLACEMENT PRIMARY) Alta Vargas [id number] Alta Vargas 01/23/2024 1 [facility] (MEDICARE REPLACEMENT/AD VANTAGE - PPO) [id number] Alta Vargas [id number] Alta Vargas 01/23/2024 2 [place] OR MEDICARE REPLACEMENT PRIMARY) Alta Vargas [id number] Alta Vargas 02/19/2024 1 [facility] (MEDICARE REPLACEMENT/AD VANTAGE - PPO) [id number] Alta Vargas [id number] Alta Vargas 02/19/2024 2 [place] OR MEDICARE REPLACEMENT PRIMARY) Alta Vargas [id number] Alta Vargas Notes Date Note Type Note Provider Name and Address Organization Details Recorded Time 11/14/2023 text/html Patient is a 68-year-old female she presents to the office with complaints of numbness and tingling of the feet. Patient states that she has rheumatoid arthritis she has lower back pain with lumbar radiculopathy. Patient states that she has been seen by Neurology and has peripheral neuropathy. Patient is currently on gabapentin she states that this medication helps but does not completely eradicate the numbness tingling feet. Patient states that it feels like she has a sock that is bunched up under her feet. Patient denies any history of wounds to the foot but she does have significant arthritic deformities worse to the right foot with a significant bunion and crossover of the 2nd toe. Patient states that she has difficulty with walking she rates it as 7/10 describes the pain as shooting stabbing aching sharp and intermittent in nature. Patient states this has been problematic since 08/11/2022. Patient denies any other complaints. Kd Gregorio DPM [address], [place], [address], [facility] [employer] [facility] [email or web address] 11/14/2023 12:23:30 11/16/2023 text/html She is here toda y for a 1 month follow upShe was seen a month ago for diarrhea which has since cleared up She also has an area on her left arm where she hit it in something and it rubbed the skin off. Happened about 2 weeks ago, not healing and has been using triple antibiotic ointment on it.Has been having sharp stabbing pain all around her upper rib cage and pain management is not helping any she had CT chest done by aden, nodule size has gone down from 11mm to 1.2 mm but suspicious for cancer. she has appt with pulm in 2 months. she had PET in the past. Lamine Cedeño MD [address], [place], [address], [employer] [facility] [email or web address] 11/16/2023 17:03:23 12/06/2023 text/html Pt is here today for chest discomfort. States that it started about 3-4 days ago. She was at a GI office yesterday and they told her they hear a crackling noise. Pain level if not moving is ) but when she up and moving can hit a 10 real easy. Breathing in deep hurts, Bending hurts and so does the middle of her back.she has no cough, some wheezing better with nebsno fevershe had similar pain in the past and had some w/u doneShe does have an appt with pain management tomorrow Lamine Cedeño MD [address], [place], [address], [facility] [employer] [facility] [employer] 12/06/2023 12:36:45 01/23/2024 text/html . Patient is a 68-year-old female who returns the office for follow-up on lower extremity muscle weakness and paresthesias of the lower extremity. Patient had an nerve conduction study which confirms neuropathy. she denies any difficulty with dorsiflexion of her foot and ankle when walking. Patient denies tripping and falling while ambulatory. I did recommend follow-up with orthopedic for her lower back issues. Kd Gregorio, DPM [address], [place], [address], [place] [facility] [email or web address] 01/24/2024 17:40:13 02/19/2024 text/html Pt is a 67 y/o h ere for f/uwas in the hospital, record reviewedShe also was recently in [facility] for pneumonia. She C/o right side pain [...] EGD,sees dr carlton Cedeño MD [address] [facility], [facility] [address], [place], [address], [place] [facility] [employer] [facility] 02/19/2024 15:25:44 OBGyn Episode No OBEpisode recorded.
--- OUTSIDE RECORDS SUMMARY | 2024-02-23 12:16 | XMS_ITS | Continuity of Care Document ---
Author Organization MD - [facility], [facility] Pod[facility] [place] Address [address] [place] [address] Care Team Providers Care Powder Coater Name Role Phone LAMINE CEDEÑO Primary Care Provider LAMINE CEDEÑO Referring Provider Assessment Encounter Date Assessment Date Assessment LastModified by Organization Details LastModified Time 01/23/2024 01/23/2024 This note is dictated and transcribed by [employer] Fluency Direct Software. Cytology Laboratory Manager variances may occur. Despite proofreading, typographical errors may occur. Occasional wrong-word or 'lguud-e-wziq' substitutions may have occurred due to the inherent limitations of voice recording. Read the chart carefully and recognize, using context, where substitutions have occurred. [email or web address] Not available 01/24/2024 17:39:13 Plan of Treatment Reminders Order Date Submit Date Provider Last Modified By Organization Details Last Modified Time Details Appointments None record ed. Lab None record ed. Referral None record ed. Procedures None record ed. Surgeries None record ed. Imaging None record ed. Medication Orders None record ed. Patient TargetsNo targets recorded. Patient InstructionsNo instructions recorded. Reason for Referral None Reported. Results Created Date Observation Date Name Description Value Unit Range Abnormal Flag Note LastModifiedBy Organization Detail LastModifiedTime 01/01/20 24 01/01/2024 lorena white damien, biljeanine [facility] [address], [place] [address] Patieduarda white Name: ALTA ANTUNEZ Access ion #: [id number] Sex: F : 1955 6 Dictat ed By: Tesha Kothari Attend ing Physic az: VON CEDEÑO ER Orderi ng Physic az: VON CEDEÑO ER Exam Date: 2023 14:24 PM Exam Name: MG SPEARN BREAST DAMIEN BILAT Admitt ing Diagno sis(es [...] BIRADS : 2 - Benign Page 1 [facility] [address] [place] [address] Patien t Name: ALTA ANTUNEZ Access ion #: [id number] Sex: F : 1955 6 Dictat ed By: Tesha Kothari Attend ing Physic az: VON MARTHA, PATRICIA Orderi ng Physic az: VON CEDEÑO ER Exam Date: 2023 14:24 PM Exam Name: SCRN BREAST DAMIEN BILAT Admitt ing Diagno sis(es ): Electr onical ly Signed by: Tesha Kothari at 2023 15:05: 32 PM Page 2 [email or web address] [facility] (Imaging) [address] [place], [address], 01/10/2024 16:19:30 01/02/20 24 08/22/2023 upper endos copy proce dure (EGD) (PROC ) No observ ation record ed. Not Available 2023 12:01:05 01/02/20 24 12/29/2023 colon oscop y scree miguel (PROC ) No observ ation record ed. Not Available 2023 12:01:00 01/02/2012/29/2023 colon oscop y scree miguel (PROC ) No observ ation record ed. Not Available 2023 12:00:47 01/02/20 24 08/22/2023 upper endos copy proce dure (EGD) (PROC ) No observ ation record ed. Not Available 2023 12:00:41 01/23/20 elect romyo gram + nerve condu ction study No observ ation record ed. [email or web address] [facility] (Cardiology & Emg) [address] [place], [place] [address], [place], [address], 01/23/2024 11:56:57 01/24/2007/10/2023 DEXA, axial skele ton [...] Time Numbness and tingling sensation of skin 68873807590 2 Active 2021 Not Available [facility] 3 01:16:23 Irritable bowel syndrome 27590020 Completed Not Available [facility] 3 01:16:23 Lumbar radiculop athy 154701446 Active 2016 Not Available [facility] 3 01:16:24 Chronic obstructi ve pulmonary disease 84482576 Active 2019 Not Available [facility] 3 01:16:24 Urinary incontine nce 588591826 Active Not Available [facility] 3 01:16:24 Nausea and vomiting 48258331 Active 2021 Not Available [facility] 3 01:16:24 Asthma 841574017 Completed 201708/12/2019 Not Available [facility] 3 01:16:24 Anxiety disorder 838963148 Active Lamine Cedeño MD [address], [place], [address] , [employer] 4 15:11:34 Hand joint pain 209984973 Active Not Available [facility] 3 01:16:24 Fibromyal justin 497737304 Active Not Available [facility] 3 01:16:24 Lumbar sprain 607075898 Completed Not Available [facility] 3 01:16:24 Gastric reflux 367211400 Completed 201608/12/2019 Not Available [facility] 3 01:16:25 Gastroeso phageal reflux disease 030934115 Active 2019 Lamine Cedeño MD [address], [place], [address] , [employer] 4 14:34:15 Pure hyperchol esterolem ia 464227707 Active Not Available [facility] 3 01:16:25 Anemia 918861791 Active 2022 Lamine Cedeño MD [address], [place], [address] , [employer] [facility] 4 14:33:51 Low back pain 547530095 Active 2020 Not Available [facility] 3 01:16:25 Chest pain 23163361 Completed 201712/03/2018 Not Available [facility] 3 01:16:25 Pain of right wrist 86801344360 9100 Active 2020 Not Available [facility] 3 01:16:25 Osteoarth ritis of left knee joint 42019847684 9109 Active 2022 Not Available [facility] 3 01:16:26 Osteoarth ritis of right knee joint 51431914663 9100 Active 2022 Not Available [facility] 3 01:16:26 Restless legs 72868745 Active Lamine Cedeño MD [address], [place], [address] , [employer] 4 14:36:46 Vitamin D deficienc y 42810475 Active 2022 Lamine Cedeño MD [address], [place], [address] , [employer] 4 14:35:29 Depressiv e disorder 96968172 Active Not Available [facility] 3 01:16:26 Chronic pain syndrome 118490403 Active 2017 Lamine Cedeño MD [address], [place], [address] , [employer] [facility] 4 15:11:54 Hypothyro idism 07929306 Active 2020 Lamine Cedeño MD [address], [place], [address] , [employer] [facility] 4 15:12:11 Trigger finger Active Not Available [facility] 3 01:16:27 Swelling of lower leg 023200582 Active 2022 Not Available [facility] 3 01:16:27 Pain of bilateral knee joints 57070736211 4104 Active 2022 Not Available [facility] 3 01:16:27 Anxiety 78766663 Completed Not Available [facility] 3 01:16:28 Cervical radiculop athy 03728791 Active Not Available [facility] 3 01:16:28 Carpal tunnel syndrome 51495589 Active Lamine Cedeño MD [address], [place], [address] , [employer] 4 15:11:37 Muscle pain 29924765 Active 2021 Not Available [facility] 3 01:16:28 Urethral caruncle 2093478 Active Not Available [facility] 3 01:16:28 Rheumatoi d arthritis 04017446 Active 2018 Lamine Cedeño MD [address], [place], [address] , [employer] 4 15:12:22 Prediabet es 231178453 Active 2021 Lamine Cedeño MD [address], [place], [address] , [employer] 4 14:35:00 Brachial neuritis 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 Active Not Available [facility] 3 01:16:29 COVID-19 369209152 Active 2021 Not Available [facility] 3 01:16:29 Postchole cystectom y syndrome 49758157 Active 2016 Not Available [facility] 3 01:16:29 Paresthes ia of upper limb 86366539 Active 2021 Not Available [facility] 3 01:16:30 Iron deficienc y anemia 09369322 Active 2022 Lamine Cedeño MD [address], [place], [address] , [employer] 4 14:36:36 Focal motor weakness 832241761 Active 2022 Ana Paula Urban MD [address], [place], [address] , [employer] 3 15:20:36 Abnormal uterine bleeding 03431868753 100 Active 2022 Ana Paula Urban MD [address], [place], [address] , [facility] 3 15:21:20 Effusion of joint of left knee 99691460391 9105 Active 2022 LORIE Villanueva [address], [place], [address] , [place] [facility] 3 10:39:00 MRI of head abnormal 77030040454 9107 Active 2022 Ana Paula Urban MD [address], [place], [address] , [facility] 3 22:56:04 Bilateral wrist pain 72901736044 609199 Active 2022 Joan Werner [employer] null, [place] [facility] 3 10:01:16 Bilateral carpal tunnel syndrome 22464099016 853683 Active 2022 LORIE Villanueva [address], [place], [address] , [facility] 3 11:32:59 Pain of bilateral hands 06364012810 839508 Active 2022 Joan Werner [employer] null, [place] [facility] 3 11:35:45 Postmenop ausal osteoporo sis 059554323 Active 2022 Lamine Cedeño MD [address], [place], [address] , [place] [facility] 4 14:35:50 Pain of right knee joint 51746380844 4100 Active 2023 JENNIFER Alvarado, [place] [facility] 4 12:33:15 Pain of left knee joint 65441895265 4107 Active 2023 JENNIFER Alvarado, [place] [facility] 4 12:33:29 Bilateral osteoarth ritis of knees 89544252464 9107 Active 2023 Lamine Cedeño MD [address], [place], [address] , [place] [facility] 4 14:34:09 Overactiv e urinary bladder 917731783 Active 2023 Lamine Cedeño MD [address], [place], [address] , [place] [facility] 4 14:37:06 Nodule of lung 389292197 Active 2023 Lamine Cedeño MD [address], [place], [address] , [place] [facility] 4 15:16:23 Osteoporo sis 82208987 Active 2023 Lamine Cedeño MD [address], [place], [address] , [place] [facility] 4 15:18:14 Rib pain 701881662 Active 2023 Adelia Swift MA [facility], [place] [facility] 4 14:27:46 Pain of bilateral knee regions 79319080522 4102 Active 2023 Lamine Cedeño MD [address], [place], [address] , [place] [facility] 4 10:04:14 Neuropath y 791014538 Active 2023 Lamnie Cedeño MD [address], [place], [address] , [place] [facility] 4 10:04:39 Edema of lower extremity 171175298 Active 2023 Kassy Goer NP [address], [place], [address] , [place] [facility] 4 15:29:24 Pulmonary embolism 46413150 Active 2023 Lamine Cedeño MD [address], [place], [address] , [place] [facility] 4 14:58:28 Diarrhea 12092887 Active 2023 Lamine Cedeño MD [address], [place], [address] , [place] [facility] 4 14:26:07 Dehydrati on 56212862 Active 2023 Lamine Cedeño MD [address], [place], [address] , [place] [facility] 4 14:27:26 Pneumonia 629408003 Active 2023 Lamine Cedeño MD [address], [place], [address] , [place] [facility] 4 15:47:38 Hyponatre valerie 58563756 Active 2023 Lamine Cedeño MD [address], [place], [address] , [place] [facility] 4 15:47:49 Vaginitis 06692734 Active 2023 Lamine Cedeño MD [address], [place], [address] , [place] [facility] 4 15:49:05 Chest wall pain 809808019 Active 2023 Lamine Cedeño MD [address], [facility] [address], [place], [address] , [place] [facility] 4 15:38:50 Bronchiti s 35180546 Active 2023 Tona mckee, [place] [facility] 4 10:54:00 Ear problem 674969940 Active 2023 Tona mckee, [place] [facility] 4 10:54:22 Headache 92185614 Active 2023 Tona mckee, [place] [facility] 4 10:54:46 Heartburn 40050350 Active 2023 Tona Carson null, [facility] 4 10:55:24 Disorder of lung 24948223 Active 2023 Tona Carson null, [facility] 4 10:55:37 Disorder of thyroid gland 23762093 Active 2023 Tona Carson null, [facility] 4 10:56:19 Idiopathi c periphera l neuropath y 11490673 Active 2023 Kd Gregorio DPM [address], [place], [address] , [facility] 4 11:00:14 Muscle weakness of limb 779620613 Active 2023 Kd Gregorio DPM [address], [place], [address] , [facility] 4 11:01:00 Bunion 313751400 Active 2023 Kd Gregorio DPM [address], [place], [address] , [facility] 4 11:01:06 Hammer toe 874580417 Active 2023 Kd Gregorio DPM [address], [place], [address] , [facility] 4 11:02:01 Laceratio n of skin 706772517 Active 2023 Lamine Cedeño MD [address], [place], [address] , [facility] 4 15:52:10 Right flank pain 810677840 Active 2023 Adelia Swift MA null, [facility] 4 11:57:01 Notes:Some problems listed i n Documents: #[id number], #[id number], #[id number] could not be added to this patient's chart. Please review these documents and add these problems to the patient's chart manually as needed. Problem Notes None recorded. Procedures Surgical History Date Name Laterality Status Provider Name and Address Organization Details Recorded Time 11/08/19 23 Ortho - Cortisone Injection completed Kolton Gutierrez MD [address], [facility] [address], [place], [address], [facility] [employer] 11/07/2022 10:03:10 06/24/19 21 Date of Last Colonoscopy completed Not Available [facility] 05/11/2022 01:05:55 08/14/19 20 Most Recent Bone Density completed Not Available [facility] 05/11/2022 01:05:56 Cataract Surgery completed Not Available [facility] 05/11/2022 01:06:02 Knee Surgery completed Not Available [facility] 05/11/2022 01:06:02 ligation of bilateral fallopian tubes completed Not Available [facility] 05/11/2022 01:06:02 Cholecystectomy completed Not Available [facility] 05/11/2022 01:06:02 Gallbladder Surgery completed Not Available [facility] 05/11/2022 01:06:02 Imaging Results None recorded. Procedure Notes None recorded. Medical Equipment None Reported. Allergies Allergen ID Allergen Name Allergen Category Reaction Reaction Severity Criticality Documentation Date Start Date Code Code System Note Provider Name and Address Organization Details Recorded Time 2470 Avelox medicatio n rash Not available Not available 05/11/2022 06364 6 RxNorm Not Available [facility] 3 01:30:21 2471 codeine medicatio n nausea Not available Not available 05/11/2022 2670 RxNorm JENNIFER Alvarado, [facility] [employer] 4 12:28:49 Medications Name Sig Start Date [...] mg by injectio n route. 08/14 completed [facility]: 0003-049 4-20 Not Available Not Available Not [...] administ ered by the provider 01/07 completed [facility]: 0409-427 08-27 Not Available Not Available Not [...] mg by injectio n route. 07/13 completed [facility] 96834-01 - Not Available Not Available Not Available lidocaine [...] 0.25 mg/0.5 mL subcutane ous pen injector [id number] 2 11/05 completed Not Available Not Available [...] Updated DateTime 4 162.56 cm 21.8 kg/m2 46989.2 3 g 96 /min 14 /min 98 % 98 % 124 mm[Hg] 80 mm[Hg] Heidi [facility] 4 15:48:13 Social History Question Answer Notes LastModified by Organization Details LastModified Time Tobacco Smoking Status Former Smoker quit 7 yrs ago Not Available [facility] 05/11/2022 01:03:53 Do You Have An Advance Directive? No MIGRATION.0301 207284 Information not available 05/11/2022 What Is Your Level Of Alcohol Consumption? None MIGRATION.0301 628690 Information not available 05/11/2022 Are You Blind Or Do You Have Difficulty Seeing? No MIGRATION.0301 601899 Information not available 05/11/2022 What Is Your Level Of Caffeine Consumption? Moderate MIGRATION.0301 172813 Information not available 05/11/2022 How Much Tobacco Do You Chew? None MIGRATION.0301 315242 Information not available 05/11/2022 In The 14 Days Before Symptom Onset, Have You Had Close Contact With A Laboratory-confi rmed COVID-19 While That Case Was Ill? No MIGRATION.0301 219263 Information not available 05/11/2022 In The 14 Days Before Symptom Onset, Have You Had Close Contact With A Person Who Is Under Investigation For COVID-19 While That Person Was Ill? No MIGRATION.0301 093496 Information not available 05/11/2022 Are You Deaf Or Do You Have Serious Difficulty Hearing? No MIGRATION.0301 261231 Information not available 05/11/2022 What Type Of Diet Are You Following? REGULAR MIGRATION.0301 573885 Information not available 05/11/2022 Which Illicit Or Recreational Drugs Have You Used? None MIGRATION.0301 259233 Information not available 05/11/2022 Do You Or Have You Ever Used E-cigarettes Or Vape? 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 0 MIGRATION.0301 896335 Information not available 05/11/2022 Have There Been Any Changes To Your Family Or Social Situation? No MIGRATION.0301 333217 Information not available 05/11/2022 What Is The Fluoride Status Of Your Home? Unknown MIGRATION.0301 380093 Information not available 05/11/2022 When Did You Quit Smoking? 6-10yearssincelastc igarette MIGRATION.0301 432145 Information not available 05/11/2022 Are There Any Guns Present In Your Home? No MIGRATION.0301 107514 Information not available 05/11/2022 Do You Use Insect Repellent Routinely? No MIGRATION.0301 693120 Information not available 05/11/2022 Where Do You Live? SingleLevelHouse MIGRATION.0301 868095 Information not available 05/11/2022 Do You Have A Medical Power Of Cranberry Sorter? No MIGRATION.0301 217779 Information not available 05/11/2022 What Was The Date Of Your Most Recent Tobacco Screening? 07/14/2023 [email or web address] Information not available 07/14/2023 Do You Have Any Pets? Yes MIGRATION.0301 070979 Information not available 05/11/2022 What Is Your Relationship Status? MIGRATION.0301 235591 Information not available 05/11/2022 Do You Use Your Seat Belt Or Car Seat Routinely? Yes MIGRATION.0301 999787 Information not available 05/11/2022 Do You Have Smoke And Carbon Monoxide Detectors In Your Home? Yes MIGRATION.0301 114202 Information not available 05/11/2022 Do You Use Any Illicit Or Recreational Drugs? No MIGRATION.0301 286529 Information not available 05/11/2022 Do You Use Sunscreen Routinely? No MIGRATION.0301 488549 Information not available 05/11/2022 How Many Years Have You Smoked Tobacco? 48 MIGRATION.0301 937837 Information not available 05/11/2022 Have You Recently Traveled Abroad? No MIGRATION.0301 695941 Information not available 05/11/2022 Do You Have Any Dietary Restrictions? No MIGRATION.0301 823526 Information not available 05/11/2022 Do You Or Have You Ever Used Any Other Forms Of Tobacco Or Nicotine? No MIGRATION.0301 499869 Information not available 05/11/2022 Sex: Female Functional Status Question Answer Note LastModified by Organizat ion Details LastModified Time Do you have difficulty walking or climbing stairs? Yes due to knees MIGRATION.141574 8359 Information not available 05/11/2022 Do you have transportation difficulties? No MIGRATION.482657 1986 Information not available 05/11/2022 Are you able to walk? YESWOREST MIGRATION.981833 3953 Information not available 05/11/2022 Do you have difficulty doing errands alone? No MIGRATION.074318 4945 Information not available 05/11/2022 Are you able to care for yourself? Yes MIGRATION.275119 7100 Information not available 05/11/2022 Do you have difficulty dressing or bathing? No MIGRATION.450597 9691 Information not available 05/11/2022 What is your exercise level? Occasional MIGRATION.660988 0470 Information not available 05/11/2022 Mental Status Question Answer Note LastModified by Organizat ion Details LastModified Time Do you have difficulty concentrating, remembering or making decisions? No MIGRATION.224520715 6 Information not available 05/11/2022 Family History Relationship Description Onset Age of this Age Resolved Age Notes LastModified by Organization Details LastModified Time Daughter Heart disease MIGRATION.260 [id number] Not available 05/11/2022 01:06:08 Daughter Malignant tumor of cervix MIGRATION.389 9114391 Not available 05/11/2022 01:06:08 Daughter Cerebrovascu lar accident MIGRATION.843 1848529 Not available 05/11/2022 01:06:08 Unspecified Relation Fibromyalgia MIGRATION.03 0 8434447 Not available 05/11/2022 01:06:09 Sister Rheumatoid arthritis MIGRATION.874 0551297 Not available 05/11/2022 01:06:09 Sister Malignant tumor of lung MIGRATION.612 6112268 Not available 05/11/2022 01:06:09 Mother Neuropathy MIGRATION.754 4052377 Not available 05/11/2022 01:06:09 Sister Arthritis Not [...] HAVE YOU BEEN HOSPITALIZED OR SEEN IN [facility] ER IN THE PAST YEAR ? Y [...] virus, trivalent, preservative 8 completed Not Available [facility] 05/11/2022 01:30:00 Influenza, split virus, trivalent, preservative 0 completed Not Available [facility] 05/11/2022 01:30:01 Td (adult), 2 Lf tetanus toxoid, preservative free, adsorbed 4 completed Lamine Cedeño MD [address] [place] [address], [address], [address], [place] [employer] 11/16/2023 17:02:20 Pneumococcal conjugate PCV20, polysaccharide [id number] conjugate, adjuvant, PF completed TERE Carrillo, [employer] 01/23/2024 17:02:44 Past Encounters Encounter ID Performer Location Encounter Start Date Encounter Closed Date Diagnosis/Indication Diagnosis SNOMED-CT Code Diagnosis ICD10 Code [id number] Kd Gregorio DPM [facility] [place] [address] [facility] [place] [address] 01/23/2024 15:14:18 01/24/2024 17:40:14 Idiopathic peripheral neuropathy 28950116 G60.9 Prediabetes 450722829 R7 3.03 Muscle wea kness of limb 897176914 M62.81 Bunion 965534162 M21.61 9 Hammer toe 195155267 M20 .41 M20.42 Health Concerns Section Related Observation LastModified by Organization Detai ls LastModified Time None Recorded Concern Status LastModified by Organization Details LastModified Time None Recorded Payers Encounter Date Sequence Insurance Name Policy Number Policy Nicholas Covered Member ID Nicholas Member ID Guarantor Name 01/23/2024 1 [facility] (MEDICARE REPLACEMENT/AD VANTAGE - PPO) [id number] Alta Vargas [id number] Alta Vargas 01/23/2024 2 [place] WHEN MEDICARE OR MEDICARE REPLACEMENT PRIMARY) Alta Vargas [id number] Alta Vargas Notes Date Note Type Note Provider Name and Address Organization Details Recorded Time 01/23/2024 text/html . Patient is a 68-year-old [...] orthopedic for her lower back issues. Kd Gregorio DPM [address], [place], [address], [facility] [employer] [facility] 01/24/2024 17:40:13 OBGyn Episode No OBEpisode recorded.
--- OUTSIDE RECORDS SUMMARY | 2024-02-23 12:17 | XMS_ITS | Data Portability ---
Author Organization [facility] Address [address] [place] [address] Assessment Encounter Date Assessment Date Assessment LastModified by Organization Details LastModified Time 10/08/2020 10/08/2020 Annual gynecological exam performed. Patient will come back in a year unless there are new symptoms. Not available 10/08/2020 15:33:43 Plan of Treatment Reminders Order Date Submit [...] Abnormal Flag Note LastModifiedBy Organization Detail LastModifiedTime 04/30/19 21 04/30/2020 , kevin fuentes md interpretati on Not Available [facility] [address], [place], [address], 10/04/2019 17:04:50 10/09/19 21 10/08/2020 IMAGE GUIDE D PAP AND HPV REGAR DLESS image guided Pap, HPV regardless of Pap result SEE RESULT S BELOW CASE REPOR T: Cytol ogy Gynec ologi thiago Repor t Case: [id number] Autho rikirsty g Provi mickey: Gatito Strickland MD Colle cted: 10/08 1643 Order ing Locat ion: [place] Path[facility] Recei amy: 10/09 0137 First Scree n: Aparna Javier , CT Speci men: Scree miguel Pap - Image d, Cervi x STATE MENT OF ADEQU ACY: Satis facto ry for evalu ation Trans forma tion zone compo nent canno t be defin itive ly ident ified due to the prese nce of atrop hy or other hormo nal cardenas es FINAL DIAGN OSIS: Negat trisha for Intra epith elial Lesio n or Kendrick amber (NIL) Atrop hic cell isabel osorio Elect jabier sandy yair d by Aparna Javier , CT on 021 at 1:59 PM ----- ----- ----- ----- ----- ----- ----- ----- ----- ----- ----- ----- ----- ----- ----- ----- ----- ---- HPV RESUL TS: HPV mRNA E6/E7 : No HPV mRNA Detec jaki NOTE: This high risk HPV mRNA assay detec ts fourt een high- risk HPV types (16, 18, 31, 33, 35, 39, 45, 51, 52, 56, 58, 59, 66, 68) witho ut diffe renti ation . CHART ABLE COMME NT: Note: This speci men was revie wed by a Cytot echno logis t and/o r Patho logis t (as indic ated in this repor t) after evalu ation using the Thinp rep Imagi ng Syste m. CLINI THIAGO INFOR MATIO N: Menst rual Statu s: LMP (if appli cable ): 015 Clini thiago Histo ry/Pr eviou s Pap: Type of Neopl miguel (if appli cable ): Signi fican t Clini thiago Findi ngs: Other Histo ry: Hormo arian (if appli cable ): PAP EDUCA TISHA L NOTE: The Pap Test is a scree miguel test with an inher ent false negat trisha rate. Liqui d-bas e sampl ing may decre ase, but will not elimi mireya, false negat trisha resul ts. A negat trisha resul t does not precl ude the prese nce and/o r devel opmen t of disea se, since the prese nce of abnor mal cells in the sampl e depen ds on the locat ion of the lesio n and sampl ing techn ique. Sheila nued regul ar scree miguel is the best metho d of cance r preve ntion . If repor jaki cytol ogic findi ng do not corre late with physi thiago and/o r histo rical findi ngs, furth er inves tigat ion is recom jeancarlos d, as clini uyen simpson nted. Not Available [facility] (Lab) [address], [place], [address], 10/11/2020 15:01:56 11/14/19 20 11/14/2019 MAMMO , scree miguel, bilat eral No observ ation record ed. [facility] (Imaging) [address] [place], [address], 11/16/2019 10:14:24 Result Notes None recorded. Procedures Surgical History Date Name Laterality Status Provider Name and Address Organization Details Recorded Time 0 Date of Last Mammogram completed [facility] 10/08/2020 15:44:31 0 HYSTEROSCOPY, SURGICAL, WITH BIOPSY OF ENDOMETRIUM AND/OR POLYPECTOMY (SURG) completed Savannah Hood [facility] 07/24/2020 09:28:22 0 Date of Last Pap Smear completed Katja Levy [facility] 10/08/2020 15:44:09 Dilation and Curettage completed Heidi Weber [facility] 09/20/2019 15:07:34 Tubal Ligation completed Heidi Weber [facility] 09/20/2019 15:07:39 cone biopsy completed Heidi Weber [facility] 09/20/2019 15:07:48 Imaging Results Imaging Date Name Status LastModified by Organiz ation Details LastModified Time 11/14/2019 MAMMO, screening, bilateral completed [facility] (Imaging) [address], [place], [address], 11/16/2019 10:14:24 Procedure Notes None recorded. Medical Equipment None Reported. Allergies Allergen ID Allergen Name Allergen Category Reaction Reaction Severity Criticality Documentation Date Start Date Code Code System Note Provider Name and Address Organization Details Recorded Time 1275 codeine medicatio n Not available Not available Not available 09/20/2019 4170 RxNorm Heidi Weber [facility] 0 15:04:25 Medications Name Sig Start Date Stop Date Status Note LastModified by Organization Details LastModified Time insulin syringe/u-1 00/1ml/29g x 1/2 29g x 1/2 1 ml misc active Not Available Not Available Not Available cyclobenzap rine 10 mg tablet TAKE 1 TABLET BY MOUTH EVERY 8 HOURS active Not Available Not Available No t Available amoxicillin 500 mg capsule 10/08 completed Not Available Not Available Not Available pramipexole 1 mg tablet active Not Available Not Available Not Available neomycin-po lymyxin-hyd rocort 3.5 mg/mL-10,00 0 unit/mL-1 % ear solution INSTILL 4 DROPS TO AFFECTED EAR 3 TO 4 TIMES DAILY FOR 10 DAYS active Not Available Not Available No t Available nystatin 100,000 unit/mL oral suspension RINSE 5 ML BY MOUTH FOUR TIMES DAILY FOR 2 WEEKS. RETAIN IN MOUTH LONG POSSIBLE active Not Available Not Available No t Available prednisone 10 mg tablet TAKE 1 TABLET BY MOUTH EVERY MORNING active Not Available Not Available No t Available ropinirole 1 mg tablet TAKE 1 TABLET BY MOUTH THREE TIMES DAILY active Not Available Not Available No t Available sulfasalazi ne 500 mg tablet active Not Available Not Available Not Available azithromyci n 250 mg tablet active Not Available Not Available Not Available ibuprofen 800 mg tablet TAKE 1 TABLET BY MOUTH EVERY 6 TO 8 HOURS WITH FOOD NEEDED FOR PAIN OR INFLAMMAT ION 10/08 completed Not Available Not Available Not Available alprazolam 1 mg tablet TAKE 1 TABLET BY MOUTH FOUR TIMES DAILY NEEDED active Not Available Not Available No t Available Lidocaine Viscous 2 % mucosal solution SWISH AND SPIT 5 ML BY MOUTH EVERY 6 HOURS. MAY USE UP TO 4 TIMES DAILY FOR TOOTH PAIN. DO NOT SWALLOW 10/08 completed Not Available Not Available Not Available ofloxacin 0.3 % eye drops active Not Available Not Available Not Available tizanidine 4 mg tablet TAKE 1 TABLET BY MOUTH THREE TIMES DAILY active Not Available Not Available No t Available benzonatate 200 mg capsule TAKE 1 CAPSULE BY MOUTH THREE TIMES DAILY NEEDED FOR COUGH active Not Available Not Available No t Available ranitidine 300 mg tablet 10/08 completed Not Available Not Available Not Available hydrocodone 5 mg-acetamin ophen 325 mg tablet take 2 tablets 2 hours before the procedure 10/08 completed Not Available Not Available Not Available ondansetron HCl 8 mg tablet take 1 tablet by mouth 2 hours before the procedure 10/08 completed Not Available Not Available Not Available meloxicam 15 mg tablet TAKE 1 TABLET BY MOUTH EVERY DAY. DO NOT EXCEED 1 TABLET PER 24 HOURS active Not Available Not Available No t Available ondansetron HCl 4 mg tablet TAKE 1 TABLET BY MOUTH EVERY 8 HOURS NEEDED active Not Available Not Available No t Available prednisone 20 mg tablet TK 3 TS PO ONCE D FOR 3 DAYS 10/08 completed Not Available Not Available Not Available alendronate 70 mg tablet TAKE 1 TABLET BY MOUTH EVERY WEEK active Not Available Not Available No t Available gabapentin 400 mg capsule 10/08 completed Not Available Not Available Not Available prednisone 5 mg tablet TAKE 1 TO 3 TABLETS BY MOUTH DAILY NEEDED active Not Available Not Available No t Available sulfasalazi ne 500 mg tablet,polina yed release TAKE 1 TO 3 TABLETS BY MOUTH TWICE DAILY active Not Available Not Available No t Available leflunomide 10 mg tablet 10/08 completed Not Available Not Available Not Available prochlorper azine maleate 10 mg tablet TAKE 1 TABLET BY MOUTH EVERY 8 HOURS NEEDED FOR NAUSEA OR VOMITING active Not Available Not Available No t Available insulin syringe U-100 with needle 1 mL 29 gauge x 716 USE DIRECTED WITH WEEKLY B12 SHOTS WEEKLY. active Not Available Not Available No t Available sulfamethox azole 800 mg-trimetho prim 160 mg tablet active Not Available Not Available Not Available hydrocodone 10 mg-acetamin ophen 325 mg tablet 10/08 completed Not Available Not Available Not Available peg-electro lyte solution 420 gram oral solution 10/08 completed Not Available Not Available Not Available omeprazole 40 mg capsule,del ayed release TAKE 1 CAPSULE BY MOUTH DAILY TO PREVENT NSAID SIDE EFFECTS active Not Available Not Available No t Available liothyronin e 5 mcg tablet active Not Available Not Available Not Available leflunomide 20 mg tablet active Not Available Not Available Not Available tramadol 50 mg tablet TAKE 1 TO 2 TABLETS BY MOUTH THREE TIMES DAILY FOR PAIN CONTROL. TAKE WITH OVER THE COUNTER TYLENOL active Not Available Not Available No t Available ketorolac 0.5 % eye drops active Not Available Not Available Not Available alendronate 35 mg tablet TK 1 T PO Q WK 10/08 completed Not Available Not Available Not Available alprazolam 0.5 mg tablet take 1 tablet by mouth 2 hours before the procedure 10/08 completed Not Available Not Available Not Available amoxicillin 875 mg tablet 10/08 completed Not Available Not Available Not Available famotidine 20 mg tablet 2020 active Not Available Not Available Not Avai lable amitriptyli ne 25 mg tablet TAKE 1 TABLET BY MOUTH EVERY DAY AT BEDTIME active Not Available Not Available No t Available prednisolon e acetate 1 % eye drops,suspe nsion INSTILL 1 DROP IN BOTH EYES THREE TIMES DAILY active Not Available Not Available No t Available metoclopram garrick 5 mg tablet 10/08 completed Not Available Not Available Not Available ropinirole 0.25 mg tablet TAKE 2 TABLET BY MOUTH ONCE DAILY active Not Available Not Available No t Available Synthroid 25 mcg tablet TAKE 1 TABLET BY MOUTH EVERY DAY IN THE MORNING active Not Available Not Available No t Available amitriptyli ne 10 mg tablet TAKE 1 TABLET BY MOUTH EVERY DAY AT BEDTIME active Not Available Not Available No t Available benzonatate 100 mg capsule TAKE 1 CAPSULE BY MOUTH THREE TIMES DAILY NEEDED active Not Available Not Available No t Available dexamethaso ne 2 mg tablet active Not Available Not Available Not Available hydrocodone 7.5 mg-acetamin ophen 325 mg tablet TAKE 1 TABLET BY MOUTH FOUR TIMES DAILY active Not Available Not Available No t Available ropinirole 2 mg tablet TAKE 1 TABLET BY MOUTH THREE TIMES DAILY active Not Available Not Available No t Available prednisone 2.5 mg tablet 10/08 completed Not Available Not Available Not Available pantoprazol e 40 mg tablet,polina yed release 10/08 completed Not Available Not Available Not Available cyanocobala min (vit B-12) 1,000 mcg/mL injection solution INJECT 1 ML UNDER THE SKIN EVERY WEEK FOR 90 DAYS 10/08 completed Not Available Not Available Not Available Gentle Laxative (bisacodyl) 5 mg tablet,polina yed release TAKE AT 8 AM ON 06/22 active Not Available Not Available No t Available promethazin e 25 mg tablet active Not Available Not Available Not Available carbidopa 10 mg-levodopa 100 mg tablet 10/08 completed Not Available Not Available Not Available Synthroid 75 mcg tablet active Not Available Not Available Not Available pramipexole 0.125 mg tablet TAKE 1 TO 2 TABLETS BY MOUTH 2 TO 3 HOURS PRIOR TO BEDTIME active Not Available Not Available No t Available Synthroid 50 mcg tablet active Not Available Not Available Not Available gabapentin 300 mg capsule TK ONE C PO TID 10/08 completed Not Available Not Available Not Available diclofenac sodium 75 mg tablet,polina yed release active Not Available Not Available Not Available morphine ER 15 mg tablet,exte nded release active Not Available Not Available Not Available furosemide 20 mg tablet 10/08 completed Not Available Not Available Not Available alprazolam 2 mg tablet 10/08 completed Not Available Not Available Not Available gabapentin 100 mg capsule 10/08 completed Not Available Not Available Not Available hydroxychlo roquine 200 mg tablet 10/08 completed Not Available Not Available Not Available methylpredn isolone 4 mg tablets in a dose pack FOLLOW PACKAGE DIRECTION S active Not Available Not Available No t Available albuterol sulfate HFA 90 mcg/actuati on aerosol inhaler INHALE 2 PUFFS BY MOUTH EVERY 4 TO 6 HOURS NEEDED FOR SHORTNESS OF BREATH OR WHEEZING active Not Available Not Available No t Available fluticasone propionate 50 mcg/actuati on nasal spray,suspe nsion active Not Available Not Available Not Available dextroamphe tamine-amph etamine 5 mg tablet 10/08 completed Not Available Not Available Not Available amoxicillin 875 mg-potassiu m clavulanate 125 mg tablet TAKE 1 TABLET BY MOUTH TWICE DAILY active Not Available Not Available No t Available cyclobenzap rine 5 mg tablet TK 1 T PO Q 8 H 10/08 completed Not Available Not Available Not Available nitrofurant oin monohydrate /macrocryst als 100 mg capsule TAKE 1 CAPSULE BY MOUTH EVERY 12 HOURS FOR 7 DAYS active Not Available Not Available No t Available duloxetine 30 mg capsule,del ayed release TAKE 1 CAPSULE BY MOUTH AT BEDTIME 10/08 completed Not Available Not Available Not Available duloxetine 60 mg capsule,del ayed release TAKE 1 CAPSULE BY MOUTH EVERY MORNING active Not Available Not Available No t Available levalbutero l HFA 45 mcg/actuati on aerosol inhaler INHALE 2 PUFFS BY MOUTH EVERY 6 HOURS NEEDED FOR SHORTNESS OF BREATH active Not Available Not Available No t Available ibandronate 150 mg tablet active Not Available Not Available Not Available chlorhexidi ne gluconate 0.12 % mouthwash active Not Available Not Available No t Available [place] active Not Available Not Availa ble Not Available prednisone 10/08 completed Not Available Not Available Not Available Xanax active Not Available Not Availa ble Not Available Symbicort 160 mcg-4.5 mcg/actuati on HFA aerosol inhaler INHALE 2 PUFFS BY MOUTH TWICE DAILY active Not Available Not Available No t Available diclofenac 1 % topical gel APPLY TO THE AFFECTED AREA FOUR TIMES DAILY NEEDED active Not Available Not Available No t Available lidocaine 5 % topical ointment 10/08 completed Not Available Not Available Not Available Linzess 145 mcg capsule TK 1 C PO QD B MEALS active Not Available Not Available No t Available Linzess 290 mcg capsule TAKE ONE CAPSULE BY MOUTH DAILY 10/08 completed Not Available Not Available Not Available Linzess 10/08 completed Not Available Not Available Not Available Caltrate active Not Available Not Avai lable Not Available Spiriva Respimat 2.5 mcg/actuati on solution for inhalation active Not Available Not Available N ot Available Stiolto Respimat 2.5 mcg-2.5 mcg/actuati on solution for inhalation active Not Available Not Available N ot Available Linzess 72 mcg capsule active Not Available Not Available Not Available Actemra ACTPen 162 mg/0.9 mL subcutaneou s pen injector active Not Available Not Available Not Available Vitals Date Recorded Body height Body mass index (BMI) Body weight Systolic blood pressure Diastolic blood pressure Provider Name and Address Organization Details Last Updated DateTime 10/08/2020 162.56 cm 29.5 kg/m2 04272.89 g 150 mm[Hg] 90 mm[Hg] [facility] 1 15:44:00 Date Recorded Body height Body mass index (BMI) Body weight Systolic blood pressure Diastolic blood pressure Systolic blood pressure Diastolic blood pressure Provider Name and Address Organization Details Last Updated DateTime 0 162.56 cm 28 kg/m2 93498.5 6 g 157 mm[Hg] 77 mm[Hg] 151 mm[Hg] 83 mm[Hg] [facility] 0 16:33:31 Date Recorded Body height Body mass index (BMI) Body weight Systolic blood pressure Diastolic blood pressure Provider Name and Address Organization Details Last Updated DateTime 11/19/2019 162.56 cm 27.5 kg/m2 42219.78 g 154 mm[Hg] 87 mm[Hg] [facility] 0 16:28:17 Social History Question Answer Notes LastModified by B-Obvious ion Details LastModified Time Tobacco Smoking Status Never Smoker [facility] 09/20/2019 15:07:27 Do You Or Have You Ever Used E-cigarettes Or Vape? Current User Of Electronic Cigarettes Information not available 10/08/2020 Do You Or Have You Ever Used Any Other Forms Of Tobacco Or Nicotine? Yes Information not available 10/08/2020 Sex: Unknown Functional Status None recorded. Mental Status None recorded. Family History Relationship Description Onset Age of this Age Resolved Age Notes LastModified by Organization Details LastModified Time Mother Uterine prolapse [email or web address] Not available 2019 15:06:39 Maternal Aunt Carcinoma in situ of breast [email or web address] Not available 2019 15:06:49 Maternal Aunt Liver cell carcinoma Not available 2020 15:44:58 Maternal Aunt Carcinoma in situ of lung Not available 15:45:09 Brother Carcinoma in situ of lung [email or web address] Not available 12/2019 15:07:02 Sister Carcinoma in situ of lung [email or web address] Not available 12/2019 15:07:02 Sister Cyst of ovary [email or web address] Not available 2019 15:07:09 Sister Liver cell carcinoma [email or web address] Not available 2019 15:07:23 Medical History No medical history recorded. Gynecological History Statement/Question Response Date of Last Pap Smear 09/20/2019 Current Control Method Tubal Ligat ion Date of Last Mammogram 11/14/2019 Obstetrics History GPAL:G 0 P 0 0 0 0 Past Encounters Encounter ID Performer Location Encounter Start Date Encounter Closed Date Diagnosis/Indication Diagnosis SNOMED-CT Code Diagnosis ICD10 Code [id number] Carole Avila [facility] [address],[place] [address] 09/20/2019 14:55:59 09/20/2019 16:26:17 Gynecologic examination 68440640 Z01.419 Pain in pelvis 69551544 R10.2 [id number] [facility] [address],[place] [address] 10/04/2019 16:21:09 10/05/2019 13:40:51 Pain in pelvis 08273886 R10.2 R14.0 [id number] Marcell Strickland MD [facility] [address],[place] [address] 10/04/2019 16:22:19 10/05/2019 13:40:06 Endometrium thickened 862320538 R93.89 [id number] Marcell Strickland MD [facility] [address],[place] [address] 11/06/2019 11:29:08 11/06/2019 11:32:13 [id number] Marcell Strickland MD [facility] [address],[place] [address] 11/12/2019 14:41:44 11/12/2019 22:31:07 [id number] Marcell Strickland MD [facility] [address],[place] [address] 11/12/2019 16:28:12 11/12/2019 17:21:40 Postoperative care 829350322 Z48.89 [id number] Marcell Strickland MD [facility] [address],[place] [address] 11/19/2019 16:00:10 11/21/2019 12:02:46 Postoperative care 150166999 Z48.89 [id number] Marcell Strickland MD [facility] [address] [address] 10/08/2020 15:26:41 10/08/2020 16:31:00 Gynecologic examination 76674925 Z01.419 Health Concerns Section Related Observation LastModified by Organization Detai ls LastModified Time None Recorded Concern Status LastModified by Organization Details LastModified Time None Recorded Advance Directives Directive None Recorded Payers Encounter Date Sequence Insurance Name Policy Number Policy Nicholas Covered Member ID Nicholas Member ID Guarantor Name 11/05/2019 1 [place]ICARE[place] (MEDICARE) Amber Bobala [id number] Amber Marsala 11/12/2019 1 MEDICARE[place] (MEDICARE) Amber L Marsala [id number] Amber Marsala 11/12/2019 1 MEDICARE[place] (MEDICARE) Amber L Marsala [id number] Amber Marsala 11/19/2019 1 MEDICARE[place] (MEDICARE) Amber L Marsala [id number] Amber Marsala 10/08/2020 1 [place]ARE[place] (MEDICARE) Amber L Marsala [id number] Amber Marsala Notes Date Note Type Note Provider Name and Address Organization Details Recorded Time 11/12/2019 text/html this patient is a 64-year-old female presents for postop follow-up. She had a hysteroscopy that was complicated. A lot of dissection was performed on the cervix to open the cervix and find the intracervical canal. She complains of bleeding. She says that time she bleeds like she is having a period. She was examined. There was a small amount of oozing on the cervix. We agreed to observe for 1 week. She will return in 1 week Marcell Strickland MD [address], [place], [address], [facility] 11/12/2019 17:03:19 11/19/2019 text/html This patient is a 64-year-old female presents for post op follow-up. She had some postop bleeding. We performed a complicated hysteroscopy D&C where the cervix had to be dissected open. She had some postop bleeding for about a week. Shortly resolved after our last visit. She was doing well now. She will follow up as needed. Marcell Strickland MD [address], [place], [address], [facility] 11/19/2019 21:53:35 10/08/2020 text/html Annual GYNReport ed bypatient.History: no gynecologic complaints Menstrual cycle:Normal menses Urinary symptoms:No hematuria;Urge incontinence Vulva:No genital lesion Vagina:Normal vaginal discharge Breast:No breast pain; No breast lump; No nipple discharge Sexual complaints:No sexual complaints Menopausal Symptoms:No menopausal symptoms Psychological symptoms:No depression; No anxiety Preventive measures:Encourage self breast examination; Encourage regular exercise Marcell Strickland MD [address], [place], [address], [facility] 10/08/2020 16:25:04 OBGyn Episode Ob Episode Information Episode Created Date Number of Fetuses Patient Bloodtype Patient rh Status Prepregnancy Weight lbs Domestic Partner Domestic Partner Phone Father Name Air Box Tester Status 09/20/19 20 1 CLOSED Fetus Data First Name Last Name Admitted to NICU Weight (g) Sex Living Outcome Pediatric Complications Fetus ID Race Codes Race Delivery Type [id number] Vaginal Delivery Miles Calculation MILES Calculation Method Initial Miles Date Initial Exam Date Initial Exam Provider Initial Ultrasound Date Last Menstrual Period Date Ultra Sound Weeks Gestation Conception by IVF Embryo Age at Transfer Date of Transfer 0 Eighteen To Twenty Week Miles Update Ultra Sound Date Fundal Height At Umbil Quickening Date Ultra Sound Latest Weeks Gestation Final Miles Confirmed By Final Miles Confirmed Date Final Miles Date Ultra Sound Latest Days Gestation 0 0 Menstrual History Last Menstrual Date Menses Monthly On Bcp Conception Prior Menses Frequency Hcg Plus Date Menarche Onset Age Delivery Information Delivery Date Delivery Type Labor Anesthesia Weeks Gestation Incision Type Labor Labor Length Hrs Delivered By Post Complications Tubal Sterilization Discharge Date Comments 1 Discharge Information Feeding Method Contraceptive Method Maternal HG B and HCT Levels Ob Episode Information Episode Created Date Number of Fetuses Patient Bloodtype Patient rh Status Prepregnancy Weight lbs Domestic Partner Domestic Partner Phone Father Name Air Box Tester Status 09/20/19 20 1 CLOSED Fetus Data First Name Last Name Admitted to NICU Weight (g) Sex Living Outcome Pediatric Complications Fetus ID Race Codes Race Delivery Type [id number] Vaginal Delivery Miles Calculation MILES Calculation Method Initial Miles Date Initial Exam Date Initial Exam Provider Initial Ultrasound Date Last Menstrual Period Date Ultra Sound Weeks Gestation Conception by IVF Embryo Age at Transfer Date of Transfer 0 Eighteen To Twenty Week Miles Update Ultra Sound Date Fundal Height At Umbil Quickening Date Ultra Sound Latest Weeks Gestation Final Miles Confirmed By Final Miles Confirmed Date Final Miles Date Ultra Sound Latest Days Gestation 0 0 Menstrual History Last Menstrual Date Menses Monthly On Bcp Conception Prior Menses Frequency Hcg Plus Date Menarche Onset Age Delivery Information Delivery Date Delivery Type Labor Anesthesia Weeks Gestation Incision Type Labor Labor Length Hrs Delivered By Post Complications Tubal Sterilization Discharge Date Comments 8 Discharge Information Feeding Method Contraceptive Method Maternal HG B and HCT Levels Ob Episode Information Episode Created Date Number of Fetuses Patient Bloodtype Patient rh Status Prepregnancy Weight lbs Domestic Partner Domestic Partner Phone Father Name Air Box Tester Status 09/20/19 20 1 CLOSED Fetus Data First Name Last Name Admitted to NICU Weight (g) Sex Living Outcome Pediatric Complications Fetus ID Race Codes Race Delivery Type [id number] Vaginal Delivery Miles Calculation MILES Calculation Method Initial Miles Date Initial Exam Date Initial Exam Provider Initial Ultrasound Date Last Menstrual Period Date Ultra Sound Weeks Gestation Conception by IVF Embryo Age at Transfer Date of Transfer 0 Eighteen To Twenty Week Miles Update Ultra Sound Date Fundal Height At Umbil Quickening Date Ultra Sound Latest Weeks Gestation Final Miles Confirmed By Final Miles Confirmed Date Final Miles Date Ultra Sound Latest Days Gestation 0 0 Menstrual History Last Menstrual Date Menses Monthly On Bcp Conception Prior Menses Frequency Hcg Plus Date Menarche Onset Age Delivery Information Delivery Date Delivery Type Labor Anesthesia Weeks Gestation Incision Type Labor Labor Length Hrs Delivered By Post Complications Tubal Sterilization Discharge Date Comments 6 Discharge Information Feeding Method Contraceptive Method Maternal HG B and HCT Levels Ob Episode Information Episode Created Date Number of Fetuses Patient Bloodtype Patient rh Status Prepregnancy Weight lbs Domestic Partner Domestic Partner Phone Father Name Air Box Tester Status 09/20/19 20 1 CLOSED Fetus Data First Name Last Name Admitted to NICU Weight (g) Sex Living Outcome Pediatric Complications Fetus ID Race Codes Race Delivery Type 2841 Vaginal Delivery Miles Calculation MILES Calculation Method Initial Miles Date Initial Exam Date Initial Exam Provider Initial Ultrasound Date Last Menstrual Period Date Ultra Sound Weeks Gestation Conception by IVF Embryo Age at Transfer Date of Transfer 0 Eighteen To Twenty Week Miles Update Ultra Sound Date Fundal Height At Umbil Quickening Date Ultra Sound Latest Weeks Gestation Final Miles Confirmed By Final Miles Confirmed Date Final Miles Date Ultra Sound Latest Days Gestation 0 0 Menstrual History Last Menstrual Date Menses Monthly On Bcp Conception Prior Menses Frequency Hcg Plus Date Menarche Onset Age Delivery Information Delivery Date Delivery Type Labor Anesthesia Weeks Gestation Incision Type Labor Labor Length Hrs Delivered By Post Complications Tubal Sterilization Discharge Date Comments 5 Discharge Information Feeding Method Contraceptive Method Maternal HG B and HCT Levels
--- OUTSIDE RECORDS SUMMARY | 2024-02-23 12:17 | XMS_ITS ---
Author Organization [facility] Address [address] [facility] [address] [place] [address] Care Team Providers Care Last Code Striper Name Role Phone Ashok Goddard Primary Care Provider Ashok Angeles Unavailable [phone] REASON FOR VISIT PCP Office Encounters Encounter Location Date Provider Diagnosis [facility] [address] [facility] [address] [place] [address] 10/24/2023 Ashok Tovar PLAN OF TREATMENT No Information
--- OUTSIDE RECORDS SUMMARY | 2024-02-23 12:17 | XMS_ITS ---
Author Organization [facility] Address [address] [facility] [address] [place] [address] Care Team Providers Care Spanisher Name Role Phone Ashok Goddard Primary Care Provider Ashok Angeles Unavailable [phone] REASON FOR VISIT SNN MRI L-spine 08-30-23 Encounters Encounter Location Date Provider Diagnosis [facility] [address] [place] [address] [place] [address] 09/01/2023 Ashok Tovar PLAN OF TREATMENT No Information
--- OUTSIDE RECORDS SUMMARY | 2024-02-23 12:17 | XMS_ITS | Continuity of Care Document ---
Author Organization [facility], [facility] Internal Med [facility] Address [address] [place] [address] Care Team Providers Care Communications Engineering Technician Name Role Phone LAMINE GOMEZ Primary Care Provider [phone] LAMINE GOMEZ Referring Provider Assessment No assessment recorded. Plan [...] LastModifiedBy Organization Detail LastModifiedTime 01/01/20 24 01/01/2024 screjanee rivera breas t damien, bilat [facility] [address] [facility] [address], [place] [address] Patien t Name: ALTA ANTUNEZ Access ion #: [id number] Sex: F : 1955 6 Dictat ed By: Tesha Kothari Attend ing Physic az: VON GOMEZ ER Orderi ng Physic az: VON GOMEZ ER Exam Date: 2023 14:24 PM Exam [...] BIRADS : 2 - Benign Page 1 [facility] [address] [place] [address] Patien t Name: ALTA ANTUNEZ Access ion #: [id number] Sex: F : 1955 6 Dictat ed By: Tesha Kothari Attend ing Physic az: PATRICIA ISSAbanner Physic az: VON GOMEZ ER Exam Date: 2023 14:24 PM Exam Name: MG SCRN BREAST DAMIEN BILAT Admitt ing Diagno sis(es ): Electr onical ly Signed by: Tesha Kothari at 2023 15:05: 32 PM Page 2 [email or web address] [facility] (Imaging) [address] [place], [address], 01/10/2024 16:19:30 01/02/20 24 08/22/2023 upper endos copy proce dure (EGD) (PROC ) No observ ation record ed. Not Available 2023 12:01:05 01/02/20 24 12/29/2023 colon oscop y scree miguel (PROC ) No observ ation record ed. Not Available 2023 12:01:00 01/02/20 24 12/29/2023 colon oscop y scree miguel (PROC ) No observ ation record ed. Not Available 2023 12:00:47 01/02/2008/22/2023 upper endos copy proce dure (EGD) (PROC ) No observ ation record ed. Not Available 2023 12:00:41 01/23/20 elect romyo gram + nerve condu ction study No observ ation record ed. [email or web address] [facility] (Cardiology & Emg) [address] [facility] [address] [facility] [address], [place], [address], 01/23/2024 11:56:57 01/24/2007/10/2023 DEXA, axial skele ton No observ ation record ed. Not Available 2023 15:39:51 02/20/2002/08/2024 CT, abdom en + pelvi s, w/ contr ast No observ ation record ed. BARCODE Not Available 2023 18:43:38 Result Notes None recorded. Problems Name Problem SNOMED Code Status Onset Date Resolution Date Notes Provider Name and Address Organization Details Recorded Time Numbness and tingling sensation of skin 31486041014 2 Active 2021 Not Available [facility] 3 01:16:23 Irritable bowel syndrome 97296217 Completed Not Available [facility] 3 01:16:23 Lumbar radiculop athy 603524275 Active 2016 Not Available [facility] 3 01:16:24 Chronic obstructi ve pulmonary disease 87616329 Active 2019 Not Available [facility] 3 01:16:24 Urinary incontine nce 102169576 Active Not Available [facility] 3 01:16:24 Nausea and vomiting 11769326 Active 2021 Not Available [facility] 3 01:16:24 Asthma 542863071 Completed 201708/12/2019 Not Available [facility] 3 01:16:24 Anxiety disorder 928960199 Active Lamine Gomez MD [address], [place], [address] , [email or web address] [facility] 4 15:11:34 Hand joint pain 909065208 Active Not Available [facility] 3 01:16:24 Fibromyal justin 677172986 Active Not Available [facility] 3 01:16:24 Lumbar sprain 224179044 Completed Not Available [facility] 3 01:16:24 Gastric reflux 361634748 Completed 201608/12/2019 Not Available [facility] 3 01:16:25 Gastroeso phageal reflux disease 259781472 Active 2019 Lamine Gomez MD [address], [place], [address] , [email or web address] [facility] 4 14:34:15 Pure hyperchol esterolem ia 090109573 Active Not Available [facility] 3 01:16:25 Anemia 463965828 Active 2022 Lamine Gomez MD [address], [place], [address] , [email or web address] [facility] 4 14:33:51 Low back pain 461590204 Active 2020 Not Available [facility] 3 01:16:25 Chest pain 25939220 Completed 201712/03/2018 Not Available [facility] 3 01:16:25 Pain of right wrist 79375608079 9100 Active 2020 Not Available [facility] 3 01:16:25 Osteoarth ritis of left knee joint 51843072768 9109 Active 2022 Not Available [facility] 3 01:16:26 Osteoarth ritis of right knee joint 94311788994 9100 Active 2022 Not Available [facility] 3 01:16:26 Restless legs 53304702 Active Lamine Gomez MD [address], [place], [address] , [employer] 4 14:36:46 Vitamin D deficienc y 37369874 Active 2022 Lamine Gomez MD [address], [place], [address] , [employer] 4 14:35:29 Depressiv e disorder 63858727 Active Not Available [facility] 3 01:16:26 Chronic pain syndrome 337033601 Active 2017 Lamine Gomez MD [address], [place], [address] , [employer] 4 15:11:54 Hypothyro idism 42648288 Active 2020 Lamine Gomez MD [address], [place], [address] , [employer] 4 15:12:11 Trigger finger Active Not Available [facility] 3 01:16:27 Swelling of lower leg 267981683 Active 2022 Not Available [facility] 3 01:16:27 Pain of bilateral knee joints 39975705123 4104 Active 2022 Not Available [facility] 3 01:16:27 Anxiety 85199537 Completed Not Available [facility] 3 01:16:28 Cervical radiculop athy 08247758 Active Not Available [facility] 3 01:16:28 Carpal tunnel syndrome 96376569 Active Lamine Gomez MD [address], [place], [address] , [employer] 4 15:11:37 Muscle pain 88083448 Active 2021 Not Available [facility] 3 01:16:28 Urethral caruncle 0905202 Active Not Available [facility] 3 01:16:28 Rheumatoi d arthritis 86943926 Active 2018 Lamine Gomez MD [address], [place], [address] , [facility] 4 15:12:22 Prediabet es 665325197 Active 2021 Lamine Gomez MD [address], [place], [address] , [employer] [facility] [employer] [facility] 4 14:35:00 Brachial neuritis 58208685 Active Not Available [facility] 3 01:16:29 COVID-19 609662020 Active 2021 Not Available [facility] 3 01:16:29 Postchole cystectom y syndrome 53670317 Active 2016 Not Available [facility] 3 01:16:29 Paresthes ia of upper limb 22860760 Active 2021 Not Available [facility] 3 01:16:30 Iron deficienc y anemia 84120157 Active 2022 Lamine Gomez MD [address], [place], [address] , [facility] [employer] [facility] 4 14:36:36 Focal motor weakness 834640332 Active 2022 Ana Paula Urban MD [address], [place], [address] , [employer] [facility] 3 15:20:36 Abnormal uterine bleeding 01053492297 100 Active 2022 Ana Paula Urban MD [address], [place], [address] , [employer] [facility] 3 15:21:20 Effusion of joint of left knee 47996113934 9105 Active 2022 LORIE Villanueva [address], [place], [address] , [place] [facility] 3 10:39:00 MRI of head abnormal 27041267093 9107 Active 2022 Ana Paula Urban MD [address], [place], [address] , [facility] 3 22:56:04 Bilateral wrist pain 81206097894 669172 Active 2022 Joan Werner DEVELOPMENT COACH null, [place] [facility] 3 10:01:16 Bilateral carpal tunnel syndrome 07858210107 719121 Active 2022 LORIE Villanueva [address], [place], [address] , [facility] 3 11:32:59 Pain of bilateral hands 26963639817 374574 Active 2022 Joan Werner DEVELOPMENT COACH null, [place] [facility] 3 11:35:45 Postmenop ausal osteoporo sis 872037655 Active 2022 Laimne Gomez MD [address], [place], [address] , [facility] 4 14:35:50 Pain of right knee joint 39686627628 4100 Active 2023 Cecilia Givens RMColleen mckee, [place] [facility] 4 12:33:15 Pain of left knee joint 12844419870 4107 Active 2023 Cecilia Givens RMColleen mckee, [facility] 4 12:33:29 Bilateral osteoarth ritis of knees 08125422881 9107 Active 2023 Lamine Gomez MD [address], [place], [address] , [facility] 4 14:34:09 Overactiv e urinary bladder 126249323 Active 2023 Lamine Gomez MD [address], [place], [address] , [place] [facility] [place] [facility] 4 14:37:06 Nodule of lung 633630452 Active 2023 Lamine Gomez MD [address], [place], [address] , [place] [facility] [place] [facility] 4 15:16:23 Osteoporo sis 91471440 Active 2023 Lamine Gomez MD [address], [place], [address] , [place] [facility] 4 15:18:14 Rib pain 432125987 Active 2023 Adelia Swift MA null, [place] [facility] [place] [facility] 4 14:27:46 Pain of bilateral knee regions 59064489187 4102 Active 2023 Lamine Gomez MD [address], [place], [address] , [facility] 4 10:04:14 Neuropath y 908927317 Active 2023 Lamine Gomez MD [address], [place], [address] , [facility] 4 10:04:39 Edema of lower extremity 932279955 Active 2023 Kassy Gore NP [address], [place], [address] , [place] [facility] 4 15:29:24 Pulmonary embolism 97310505 Active 2023 Lamine Gomez MD [address], [place], [address] , [place] [facility] 4 14:58:28 Diarrhea 71756045 Active 2023 Lamine Gomez MD [address], [place], [address] , [facility] 4 14:26:07 Dehydrati on 12869875 Active 2023 Lamine Gomez MD [address], [place], [address] , [place] [facility] [place] [facility] 4 14:27:26 Pneumonia 030913600 Active 2023 Lamine Gomez MD [address], [facility] [address], [place], [address] , [place] [facility] [place] [facility] 4 15:47:38 Hyponatre valerie 93864175 Active 2023 Lamine Gomez MD [address] [facility] [facility] [address], [place], [address] , [place] [facility] [place] [facility] 4 15:47:49 Vaginitis 60195810 Active 2023 Lamine Gomez MD [address], [facility] [address], [place], [address] , [place] [facility] [place] [facility] 4 15:49:05 Chest wall pain 098840678 Active 2023 Lamine Gomez MD [address], [facility] [address], [place], [address] , [place] [facility] [place] [facility] 4 15:38:50 Bronchiti s 34108723 Active 2023 Tona mckee, [place] [facility] 4 10:54:00 Ear problem 714306378 Active 2023 Tona mckee, [place] [facility] [place] [facility] 10:54:22 Headache 20668085 Active 2023 Tona mckee, [place] [facility] 4 10:54:46 Heartburn 55871064 Active 2023 Tona mckee, [place] [facility] [place] [facility] 4 10:55:24 Disorder of lung 47829572 Active 2023 Tona mckee, [place] [facility] [place] [facility] 10:55:37 Disorder of thyroid gland 28213456 Active 2023 Tona mckee, [place] [facility] [place] [facility] 4 10:56:19 Idiopathi c periphera l neuropath y 73021935 Active 2023 Kd Gregorio DPM [address], [place], [address] , [employer] 4 11:00:14 Muscle weakness of limb 190983971 Active 2023 Kd Gregorio DPM [address], [place], [address] , [employer] 4 11:01:00 Bunion 656608829 Active 2023 Kd Gregorio DPM [address], [place], [address] , [employer] 4 11:01:06 Hammer toe 006908593 Active 2023 Kd Gregorio DPM [address], [place], [address] , [employer] 4 11:02:01 Laceratio n of skin 535856693 Active 2023 Lamine Gomez MD [address], [place], [address] , [employer] 4 15:52:10 Right flank pain 038724330 Active 2023 Adelia Swift MA [facility], [employer] 4 11:57:01 Notes:Some problems listed i n Documents: #[id number], #[id number], #[id number] could not be added to this patient's chart. Please review these documents and add these problems to the patient's chart manually as needed. Problem Notes None recorded. Procedures Surgical History Date Name Laterality Status Provider Name and Address Organization Details Recorded Time 11/08/19 23 Ortho - Cortisone Injection completed Kolton Gutierrez MD [address], [place], [address], [employer] 11/07/2022 10:03:10 06/24/19 21 Date of Last Colonoscopy completed Not Available [facility] 05/11/2022 01:05:55 08/14/19 20 Most Recent Bone Density completed Not Available [facility] 05/11/2022 01:05:56 Cataract Surgery completed Not Available [facility] 05/11/2022 01:06:02 Knee Surgery completed Not Available [facility] 05/11/2022 01:06:02 ligation of bilateral fallopian tubes completed Not Available [facility] 05/11/2022 01:06:02 Cholecystectomy completed Not Available [facility] 05/11/2022 01:06:02 Gallbladder Surgery completed Not Available [facility] 05/11/2022 01:06:02 Imaging Results None recorded. Procedure Notes None recorded. Medical Equipment None Reported. Allergies Allergen ID Allergen Name Allergen Category Reaction Reaction Severity Criticality Documentation Date Start Date Code Code System Note Provider Name and Address Organization Details Recorded Time 2470 Avelox medicatio n rash Not available Not available 05/11/2022 94253 6 RxNorm Not Available [facility] 01:30:21 2471 codeine medicatio n nausea Not available Not available 05/11/2022 2670 RxNorm JENNIFER Alvarado, [place] [facility] [employer] 4 12:28:49 Medications Name Sig Start Date [...] by injectio n route. 08/14 completed [facility]: [id number] 4-20 Not Available Not Available Not [...] ered by the provider 01/07 completed [facility]: [id number] 08-27 Not Available Not Available [...] by injectio n route. 07/13 completed [facility] 26533-45 06-11 Not Available Not Available Not Available [...] 0.25 mg/0.5 mL subcutane ous pen injector [id number] 2 11/05 completed Not Available Not Available [...] Updated DateTime 4 162.56 cm 21.8 kg/m2 89607.2 3 g 97.2 [degF] 97 /min 98 % 98 % 160 mm[Hg] 86 mm[Hg] JENNIFER Keene [place] [facility] [employer] 4 12:03:52 Social History Question Answer Notes LastModified by Organization Details LastModified Time Tobacco Smoking Status Former Smoker quit 7 yrs ago Not Available [facility] 05/11/2022 01:03:53 Do You Have An Advance Directive? No MIGRATION.0301 781931 Information not available 05/11/2022 What Is Your Level Of Alcohol Consumption? None MIGRATION.0301 490869 Information not available 05/11/2022 Are You Blind Or Do You Have Difficulty Seeing? No MIGRATION.0301 671913 Information not available 05/11/2022 What Is Your Level Of Caffeine Consumption? Moderate MIGRATION.0301 926934 Information not available 05/11/2022 How Much Tobacco Do You Chew? None MIGRATION.0301 774444 Information not available 05/11/2022 In The 14 Days Before Symptom Onset, Have You Had Close Contact With A Laboratory-confi rmed COVID-19 While That Case Was Ill? No MIGRATION.0301 076521 Information not available 05/11/2022 In The 14 Days Before Symptom Onset, Have You Had Close Contact With A Person Who Is Under Investigation For COVID-19 While That Person Was Ill? No MIGRATION.0301 908582 Information not available 05/11/2022 Are You Deaf Or Do You Have Serious Difficulty Hearing? No MIGRATION.0301 446988 Information not available 05/11/2022 What Type Of Diet Are You Following? REGULAR MIGRATION.0301 339451 Information not available 05/11/2022 Which Illicit Or Recreational Drugs Have You Used? None MIGRATION.030 199248 Information not available 05/11/2022 Do You Or Have You Ever Used E-cigarettes Or Vape? 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 0 MIGRATION.0301 036490 Information not available 05/11/2022 Have There Been Any Changes To Your Family Or Social Situation? No MIGRATION.0301 694045 Information not available 05/11/2022 What Is The Fluoride Status Of Your Home? Unknown MIGRATION.0301 065440 Information not available 05/11/2022 When Did You Quit Smoking? 6-10yearssincelastc igarette MIGRATION.0301 660357 Information not available 05/11/2022 Are There Any Guns Present In Your Home? No MIGRATION.0301 186647 Information not available 05/11/2022 Do You Use Insect Repellent Routinely? No MIGRATION.0301 033554 Information not available 05/11/2022 Where Do You Live? SingleLevelHouse MIGRATION.0301 054259 Information not available 05/11/2022 Do You Have A Medical Power Of Patient Coordinator Front Desk? No MIGRATION.0301 165347 Information not available 05/11/2022 What Was The Date Of Your Most Recent Tobacco Screening? 07/14/2023 [email or web address] Information not available 07/14/2023 Do You Have Any Pets? Yes MIGRATION.0301 986096 Information not available 05/11/2022 What Is Your Relationship Status? MIGRATION.0301 615187 Information not available 05/11/2022 Do You Use Your Seat Belt Or Car Seat Routinely? Yes MIGRATION.0301 432054 Information not available 05/11/2022 Do You Have Smoke And Carbon Monoxide Detectors In Your Home? Yes MIGRATION.0301 871828 Information not available 05/11/2022 Do You Use Any Illicit Or Recreational Drugs? No MIGRATION.0301 331293 Information not available 05/11/2022 Do You Use Sunscreen Routinely? No MIGRATION.0301 198239 Information not available 05/11/2022 How Many Years Have You Smoked Tobacco? 48 MIGRATION.0301 385491 Information not available 05/11/2022 Have You Recently Traveled Abroad? No MIGRATION.0301 544937 Information not available 05/11/2022 Do You Have Any Dietary Restrictions? No MIGRATION.0301 029344 Information not available 05/11/2022 Do You Or Have You Ever Used Any Other Forms Of Tobacco Or Nicotine? No MIGRATION.0301 199006 Information not available 05/11/2022 Sex: Female Functional Status Question Answer Note LastModified by Organizat ion Details LastModified Time Do you have difficulty walking or climbing stairs? Yes due to knees MIGRATION.163630 1150 Information not available 05/11/2022 Do you have transportation difficulties? No MIGRATION.101032 0952 Information not available 05/11/2022 Are you able to walk? YESWOREST MIGRATION.995787 2865 Information not available 05/11/2022 Do you have difficulty doing errands alone? No MIGRATION.333952 1782 Information not available 05/11/2022 Are you able to care for yourself? Yes MIGRATION.675349 1051 Information not available 05/11/2022 Do you have difficulty dressing or bathing? No MIGRATION.456196 4667 Information not available 05/11/2022 What is your exercise level? Occasional MIGRATION.637837 8943 Information not available 05/11/2022 Mental Status Question Answer Note LastModified by Organizat ion Details LastModified Time Do you have difficulty concentrating, remembering or making decisions? No MIGRATION.856828005 6 Information not available 05/11/2022 Family History Relationship Description Onset Age of this Age Resolved Age Notes LastModified by Organization Details LastModified Time Daughter Heart disease MIGRATION.254 3547229 Not available 05/11/2022 01:06:08 Daughter Malignant tumor of cervix MIGRATION.359 3991666 Not available 05/11/2022 01:06:08 Daughter Cerebrovascu lar accident MIGRATION.877 9177624 Not available 05/11/2022 01:06:08 Unspecified Relation Fibromyalgia MIGRATION.03 0 0966536 Not available 05/11/2022 01:06:09 Sister Rheumatoid arthritis MIGRATION.532 2525225 Not available 05/11/2022 01:06:09 Sister Malignant tumor of lung MIGRATION.949 4769332 Not available 05/11/2022 01:06:09 Mother Neuropathy MIGRATION.203 1268755 Not available 05/11/2022 01:06:09 Sister Arthritis Not [...] HAVE YOU BEEN HOSPITALIZED OR SEEN IN [facility] ER IN THE PAST YEAR [...] virus, trivalent, preservative 8 completed Not Available [facility] 05/11/2022 01:30:00 Influenza, split virus, trivalent, preservative 0 completed Not Available [facility] 05/11/2022 01:30:01 Td (adult), 2 Lf tetanus toxoid, preservative free, adsorbed 4 completed Lamine Gomez MD [address] [place] [address], [address], [employer] 11/16/2023 17:02:20 Pneumococcal conjugate PCV20, polysaccharide [id number] conjugate, adjuvant, PF 4 completed TERE Carrillo, [employer] 01/23/2024 17:02:44 Past Encounters Encounter ID Performer Location Encounter Start Date Encounter Closed Date Diagnosis/Indication Diagnosis SNOMED-CT Code Diagnosis ICD10 Code [id number] Kd Gregorio DPM [facility] [place] [address] [place] [address] 11/14/2023 10:40:13 11/15/2023 11:32:43 Idiopathic peripheral neuropathy 37637528 G60.9 Prediabetes 973071033 R7 3.03 Muscle wea kness of limb 438387136 M62.81 Bunion 239875535 M21.61 9 Hammer toe 082968551 M20 .41 M20.42 [id number] Lamine Gomez MD [facility] Internal Med [address] [place] [address] 11/16/2023 15:15:02 11/16/2023 16:09:37 Chest wall pain 347689588 R07.89 Laceration of skin 87056 5007 T14.8XXA [id number] Lamine Gomez MD [facility] Internal Med [facility] [address] [place] [address] 12/06/2023 11:46:29 12/06/2023 12:37:06 Chest wall pain 586223987 R07.89 Health Concerns Section Related Observation LastModified by Organization Detai ls LastModified Time None Recorded Concern Status LastModified by Organization Details LastModified Time None Recorded Payers Encounter Date Sequence Insurance Name Policy Number Policy Nicholas Covered Member ID Nicholas Member ID Guarantor Name 12/06/2023 1 [facility] (MEDICARE REPLACEMENT/AD VANTAGE - PPO) [id number] Alta Vargas [id number] Alta Vargas 12/06/2023 2 [place] WHEN MEDICARE OR MEDICARE REPLACEMENT PRIMARY) Alta Vargas [id number] Alta Vargas Notes Date Note Type Note Provider Name and Address Organization Details Recorded Time 12/06/2023 text/html Pt is here today for [...] in the past and had some w/u doneLilly does have an appt with pain management tomorrow Lamine Gomez MD [address] [facility] [address], [place], [address], [place] [facility] 12/06/2023 12:36:45 OBGyn Episode No OBEpisode recorded.
--- OUTSIDE RECORDS SUMMARY | 2024-02-23 12:17 | XMS_ITS | Patient Health Record ---
Author Organization [facility] Address [address] [facility] [address] [place] [address] Care Team Providers Care Superintendent Drilling Name Role Phone Ashok Goddard Primary Care Provider Ashok Angeles Unavailable [phone] Nitza English Unavailable [phone] ALLERGIES No Known Allergies RESULTS Component Value Reference Range Notes MRI : Lumbar without contras t Reviewed date:03/23/2023 07:45:53 AM Interpretation:completed Performing Lab: Notes/Report: completed X ray : Thoracic Spine 3 vie ws, AP, Lateral, Swimmers Reviewed date:03/21/2023 02:15:22 PM Interpretation:127 Performing Lab: Notes/Report: 127 X ray : Lumbar Spine 3 views , AP, Lateral, Spot Reviewed date:03/21/2023 02:15:28 PM Interpretation:127 Performing Lab: Notes/Report: 127 MRI : Lumbar without contras t Reviewed date:08/22/2023 08:04:58 AM Interpretation:completed Performing Lab: Notes/Report: completed X ray : Lumbar Spine 3 views , AP, Lateral, Spot Reviewed date:08/21/2023 04:38:02 PM Interpretation:325 Performing Lab: Notes/Report: 325 REASON FOR REFERRAL Reason Lumbar RFA Diagnosis 1 Spondylolisthesis of lumbar region (M43.16) Referral Organization [facility] Referring Provider First Name Ashok Referring Provider Last Name Guy Referring Provider Speciality Orthopedic Surgery Referred Provider Specialty Pain Medicin e Referral Priority Routine MEDICATIONS Medication SIG (Take, Route, Fr equency, Duration) Notes Start Date End Date Status Synthroid Unknown Medrol (Ambrosio) as directed Orally t nasir as directed for 6 days 04/03/2023 Not-Taking Requip Unknown Morphine Sulfate Unk nown Omeprazole Unknown traMADol HCl Unknown Centrum Silver Unkno wn Vitamin C Unknown Vitamin D Unknown Tylenol Unknown predniSONE Unknown Ferrous Sulfate Unkn own Valium 5 MG 1 tablet as needed O rally 1 tablet 1 hour before procedure. May repeat in 30 minutes if needed 03/22/2023 Not-Taking Ibandronate Sodium U nknown predniSONE 10 MG 1 tablet Orally every 8 hours 12/2023 Not-Taking PROBLEMS Problem Type ICD Code Onset Dates Problem Status W/U Status Risk SNOMED Code Notes Problem Cervical spondylolysis (M43.02) Active confirmed Spondylolysis o f cervical spine (513832321) Problem Spondylolisthesis of lumbar region (M43.16) Active confirmed Acquired spondylolisthesis (164762283) Problem Compression fracture of L1 lumbar vertebra (S32.010A) Active confirmed Problem Age-related osteoporosis with current pathological fracture of vertebra (M80.08XA) Active confirmed Patholog ical fracture of vertebra (125528517) Problem Low back pain of multiple sites of spine with sciatica (M54.40) Active confirmed Sciatica (42651416) Problem Spondylolisthesis (M43.10) Active confirmed Spondylolisthes is (432108077) VITAL SIGNS Height 64 in 08/21/2023 Weight 125 lbs 08/21/2023 BMI 21.45 kg/m2 08/21/2023 PROCEDURES Procedure Date Ordered Date Performed Result Body Sit e Kyphoplasty, Lumbar 03/24/2023 03/29/2023 approved Encounters Encounter Location Date Provider Diagnosis [facility] [address] [address] 03/14/2023 Ashok Tovar [facility] [address] [address] 04/11/2023 Ashok Tovar [facility] [address] [address] 03/21/2023 Ashok Tovar Other low back pain M54.59 ; Thoracic back pain M54.6 and Compression fracture of L1 lumbar vertebra S32.010A [facility] [address] [address] 04/18/2023 Nitza English Compression fracture of L1 lumbar vertebra S32.010A [facility] [address] [facility] [address] 04/19/2023 Nitza English [facility] [address] [facility] [address] [address] 04/26/2023 Nitza English [facility] [address] [facility] [address] 08/21/2023 Nitza English Spondylolisthesis of lumbar region M43.16 and Other low back pain M54.59 [facility] [address] [facility] [address] 03/16/2023 Ashok Tovar [facility] [address] [facility] [address] [address] 03/22/2023 Ashok Toavr [facility] [place] [address] [facility] [place] [address] 03/22/2023 Ashok Tovar [facility] [address] [facility] [address] 03/22/2023 Ashok Tovar [facility] [address] [facility] [address] [address] 03/24/2023 Ashok Tovar Age-related osteoporosis with current pathological fracture, unspecified site, initial encounter for fracture M80.00XA and Age-related osteoporosis with current pathological fracture of vertebra M80.08XA [facility] [address] [facility] [address] 03/28/2023 Ashok Tovar [facility] [address] [facility] [address] 03/29/2023 Ashok Tovar [facility] [address] [facility] [address] 04/03/2023 Ashok Tovar [facility] [address] [facility] [address] 04/03/2023 Ashok Tovar [facility] [address] [place] [address] [place] [address] 04/10/2023 Ashok Tovar [facility] [address] [place] [address] [place] [address] 08/08/2023 Ashok Tovar [facility] [address] [place] [address] [place] [address] 08/28/2023 Ashok Tovar [facility] [address] [facility] [address] [place] [address] 09/01/2023 Ashok Tovar [facility] [address] [place] [address] [place] [address] 09/04/2023 Ashok Tovar [facility] [address] [facility] [address] [place] [address] 10/24/2023 Ashok Tovar ASSESSMENTS Encounter Date Diagnosis Assessment Notes Treatment Notes Treatment Clinical Notes 03/21/2023 Other low back pain (ICD-10 - M54.59) 03/21/2023 Thoracic back pain (ICD-10 - M54.6) 08/21/2023 Spondylolisthesis of lumbar region (ICD-10 - M43.16) 03/21/2023 Compression fracture of L1 lumbar vertebra (ICD-10 - S32.010A) 04/18/2023 Compression fracture of L1 lumbar vertebra (ICD-10 - S32.010A) 08/21/2023 Other low back pain (ICD-10 - M54.59) 03/24/2023 Age-related osteopor osis with current pathological fracture, unspecified site, initial encounter for fracture (ICD-10 - M80.00XA) 03/24/2023 Age-related osteopor osis with current pathological fracture of vertebra (ICD-10 - M80.08XA) PLAN OF TREATMENT No Information Insurance Providers Payer Name Payer Address Payer Phone Subscriber Number Group Number Insured Name Patient Relationship to Insured Coverage Start Date Coverage End Date [facility] Medicare Advantage PPO [address] [address] [place] [address] [phone] [id number] Alicia Alta Self - patient is the insured MEDICAL (GENERAL) HISTORY Medical History History ICD Code COPD Rheumatoid arthritis Lung cancer Fibromyalgia IBS Surgical History Surgery Date(Month/Year) Cholecystectomy Tubal ligation Bunionectomy LEEP Procedure D&C Kyphoplasty 03/30/23 Hospitalization History Reason Date(Month/Year) As per above.
--- OUTSIDE RECORDS SUMMARY | 2024-02-23 12:17 | XMS_ITS ---
Author Organization [facility] Address [address] [facility] [address] [place] [address] Care Team Providers Care Dehairer Name Role Phone Ashok Goddard Primary Care Provider Unavailabl e Ashko Tovar Unavailable [phone] REASON FOR REFERRAL Reason Lumbar RFA Diagnosis 1 Spondylolisthesis of lumbar region (M43.16) Referral Organization [facility] Referring Provider First Name Ashok Referring Provider Last Name Guy Referring Provider Speciality Orthopedic Surgery Referred Provider Specialty Pain Medicin e Referral Priority Routine Encounters Encounter Location Date Provider Diagnosis [facility] [address] [facility] [address] [place] [address] 09/04/2023 Ashok Tovar PLAN OF TREATMENT Referrals Referral Date Details Lumbar RFA Consultation Request Notes Referral Date Referring Provider Referred Provider Not es 09/04/2023 Ashok Tovar , Lumbar RFA
== END 2024-02-23 08:28 | disposition home or self-care (01) ==
PROVIDERS: PCP Internal Medicine; Visit Provider Internal Medicine Hematology & Oncology
DX: R10.11 Right upper quadrant pain (principal); R16.0 Hepatomegaly, not elsewhere classified; Z90.49 Acquired absence of other specified parts of digestive tract
CPT/HCPCS: 76700

== ENCOUNTER 2024-04-01 11:57 | Outpatient (CLI) | payer MEDICARE, SELFPAY ==
--- NOTE | 2024-04-02 14:08 | WPDSIXMINUTE ---
Six Minute Walk Procedure Procedure Performed Pulmonary Stress Test (6 min walk) Six Minute Walk Six Minute Walk: DATE OF SERVICE: 04/01/2024 REQUESTING: Brad Johnston MD REASON FOR TESTING: Shortness of breath, R06.02 SIX MINUTE WALK This test was conducted per ATS guidelines. The initial saturation was 97%, and initial heart rate was 98 beats per minute. The patient walked without stopping, completing 243.8 m/800 ft. The saturation at the end of testing was 96%, and the heart rate was 112 beats per minute. IMPRESSION: This is a normal study. The patient did not require supplemental oxygen with exertion. The patient had tachycardia that was persistent at the end of 2 minutes of recovery. Tejal Connelly MD
--- OUTSIDE RECORDS SUMMARY | 2024-04-04 13:06 | XMS_ITS | Data Portability ---
Author Organization [facility] [place] Address [address] [place] [address] Assessment Encounter Date Assessment Date Assessment LastModified [...] kevin fuentes md interpretati on Not Available [facility] [address], [place], [address], 10/04/2019 17:04:50 10/09/19 21 10/08/2020 IMAGE GUIDE [...] as clini uyen simpson nted. Not Available [facility] (Lab) [address], [place], [address], 10/11/2020 15:01:56 11/14/19 20 11/14/2019 MAMMO , scree miguel, bilat eral No observ ation record ed. [facility] (Imaging) [address] [place], [address], 11/16/2019 10:14:24 Result Notes None recorded. Procedures Surgical History Date Name Laterality Status Provider Name and Address Organization Details Recorded Time 0 Date of Last Mammogram completed [facility] 10/08/2020 15:44:31 0 HYSTEROSCOPY, SURGICAL, WITH BIOPSY OF ENDOMETRIUM AND/OR POLYPECTOMY (SURG) completed Savannah Hood [facility] 07/24/2020 09:28:22 0 Date of Last Pap Smear completed Katja Levy [facility] 10/08/2020 15:44:09 Dilation and Curettage completed Heidi Weber [facility] 09/20/2019 15:07:34 Tubal Ligation completed Heidi Weber [facility] 09/20/2019 15:07:39 cone biopsy completed Heidi Weber MD Skylar [facility] 09/20/2019 15:07:48 Imaging Results Imaging Date Name Status LastModified by Organiz ation Details LastModified Time 11/14/2019 MAMMO, screening, bilateral completed [facility] (Imaging) [address], [place], [address], 11/16/2019 10:14:24 Procedure Notes None recorded. Medical Equipment None Reported. Allergies Allergen ID Allergen Name Allergen Category Reaction Reaction Severity Criticality Documentation Date Start Date Code Code System Note Provider Name and Address Organization Details Recorded Time 1275 codeine medicatio n Not available Not available Not available 09/20/2019 [address] [facility] 0 15:04:25 Medications Name Sig Start [...] Not Available Not Available No t Available [place] active Not Available Not Availa ble Not [...] Updated DateTime 10/08/2020 162.56 cm 29.5 kg/m2 40925.89 g 150 mm[Hg] 90 mm[Hg] [facility] 1 15:44:00 Date Recorded Body height Body mass index (BMI) Body weight Systolic blood pressure Diastolic blood pressure Systolic blood pressure Diastolic blood pressure Provider Name and Address Organization Details Last Updated DateTime 0 162.56 cm 28 kg/m2 96633.5 6 g 157 mm[Hg] 77 mm[Hg] 151 mm[Hg] 83 mm[Hg] [facility] 0 16:33:31 Date Recorded Body height Body mass index (BMI) Body weight Systolic blood pressure Diastolic blood pressure Provider Name and Address Organization Details Last Updated DateTime 11/19/2019 162.56 cm 27.5 kg/m2 73544.78 g 154 mm[Hg] 87 mm[Hg] [facility] 0 16:28:17 Social History Question Answer Notes LastModified by [employer] ion Details LastModified Time Tobacco Smoking Status Never Smoker [facility] 09/20/2019 15:07:27 Do You Or Have [...] Diagnosis/Indication Diagnosis SNOMED-CT Code Diagnosis ICD10 Code Diagnosis Note [id number] Carole Avila , [facility] [address] [address] 09/20/2019 14:55:59 09/20/2019 16:26:17 Gynecologic examination 06758173 Z01.419 Take Calcium with Vitamin D 12-1500mg daily. Do monthly self breast exams. It is advised to get annual flu shot in the fall and she could obtain at [facility] or [facility]. If you haven't received the Tdap vaccine in the last 10 years you should obtain one as well. Have mammogram yearly, bone density every 2-3 years and colonoscop y every 5-10 years depending on findings and history. Engage in daily exercise of low impact aerobic exercise 45-60 minutes 4-5 times weekly. Avoid tobacco and illicit drugs as well as using moderation with alcohol intake less than 1-2 8 oz beverages daily. This lifestyle behavior pattern will lead to less health conditions and longer life span. If BMI greater than 25 weight watchers or dietary consult advised. Questions have been answered. Patient appears to understand instructio ns, but if you have any further questions call or respond to this email Copy of dexa obtained. Being managed by RA specialist . Pain in pelvis 42831579 R10.2 Abd bloating/w eight gain, pelvic pressure. Has a lot of GI issues. Seeing GI spec now. On linzess but wants to r/o COMPLIANCE EXAMINER issues. Denies fam hx of ovarian/br east/colon cancer [facility] w/ OV [id number] [address] [address] 10/04/2019 16:21:09 10/05/2019 13:40:51 Pain in pelvis 99876982 R10.2 R14.0 [id number] Marcell Strickland MD [facility] [address] [address] 10/04/2019 16:22:19 10/05/2019 13:40:06 Endometrium thickened 268194203 R93.89 Patient is a 64-year-ol d female with pelvic pain and pressure.S he has bloating and GI concerns.S he had a pelvic ultrasound .We reviewed the results today. She has a distended fluid-fill eduterus withhypere choicdebri s suspended in the fluid. We reviewed those images today. We spent over 25 minutes face-to-fa cetalk about thethe evaluation of theabove findings, the possible significan ce of the above findings, andthein office and in the operating room procedures for obtaining endometria l tissue and evaluating the endometriu m.Patient can contact us when she decides whether she wants to have hysterosco py in the office or in thehospita l.She is hysterosco py D&C [id number] Marcell Strickland MD [facility] [address] [address] 11/06/2019 11:29:08 11/06/2019 11:32:13 [id number] Macrell Strickland MD [facility] [address],[place] [address] 11/12/2019 14:41:44 11/12/2019 22:31:07 [id number] Marcell Strickland MD [facility] [address] [address] 11/12/2019 16:28:12 11/12/2019 17:21:40 Postoperative care [id number] Z48.89 this patient is a 64-year-ol d female presents forpostopf ollow-up. She had a hysterosco py that was complicate d. A lot of dissection was performed on the cervix to open the cervix and find the intracervi thiago canal. She complains of bleeding. She says that time she bleeds like she is having a period.She wasexamine d. There was a small amount of oozing on the cervix. We agreed to observe for 1 week. She will return in 1 week [id number] Marcell Strickland MD [facility] [address] [address] 11/19/2019 16:00:10 11/21/2019 12:02:46 Postoperative care [id number] Z48.89 This patient is a 64-year-ol d female presents for post op follow-up. She had somepostop bleeding. We performed a complicate d hysterosco py D&C where the cervix had to be dissected open. She had somepostop bleeding for about a week. Shortly resolved after our last visit. She was doing well now. She will follow up as needed. [id number] Marcell Strickland MD [facility] [address] [address] 10/08/2020 15:26:41 10/08/2020 16:31:00 Gynecologic examination 50414006 Z01.419 This patient is here for her annual exam. A thorough history was taken. A physical exam was performed. Age appropriat e routine health screening was ordered, performed, and discussed. Recommende d testing was ordered. She was asked to follow up in one year. She will be informed of any test results. Mammogram - ordered Colonoscop y - done Bone Density - to order Cholestero l - done Pap - today Health Concerns Section Related Observation LastModified by Organization Detai ls LastModified Time None Recorded Concern Status LastModified by Organization Details LastModified Time None Recorded Advance Directives Directive None Recorded Payers Encounter Date Sequence Insurance Name Policy Number Policy Nicholas Covered Member ID Nicholas Member ID Guarantor Name 11/05/2019 1 [place] Amber L Marsala [id number] Amber Marsala 11/12/2019 1 [place] Amber L Marsala [id number] Amber Marsala 11/12/2019 1 [place] Amber L Marsala [id number] Amber Marsala 11/19/2019 1 [place] Amber L Marsala [id number] Amber Marsala 10/08/2020 1 [place] Amber L Paulinoala [id number] Amber Marsala Notes Date Note Type [...] week Marcell Strickland MD [address], [place], [address], [facility] 11/12/2019 17:03:19 11/19/2019 text/html This patient [...] needed. Marcell Strickland MD [address], [place], [address], [facility] 11/19/2019 21:53:35 10/08/2020 text/html Annual GYNReport ed bypatient.History: no gynecologic complaints Menstrual cycle:Normal menses Urinary symptoms:No hematuria;Urge incontinence Vulva:No genital lesion Vagina:Normal vaginal discharge Breast:No breast pain; No breast lump; No nipple discharge Sexual complaints:No sexual complaints Menopausal Symptoms:No menopausal symptoms Psychological symptoms:No depression; No anxiety Preventive measures:Encourage self breast examination; Encourage regular exercise Marcell Strickland MD [address], [place], [address], [facility] 10/08/2020 16:25:04 OBGyn Episode Ob Episode Information Episode Created Date Number of Fetuses Patient Bloodtype Patient rh Status Prepregnancy Weight lbs Domestic Partner Domestic Partner Phone Father Name Route Rider Status 09/20/19 20 1 CLOSED Fetus Data First Name Last Name Admitted to NICU Weight (g) Sex Living Outcome Pediatric Complications Fetus ID Race Codes Race Delivery Type 2840 Vaginal Delivery Gal Calculation Initial Gal Date Initial Exam Date Initial Exam Provider Initial Ultrasound Date Last Menstrual Period Date Ultra Sound Weeks Gestation 0 Eighteen To Twenty Week Gal Update Ultra Sound Date Fundal Height At Umbil Quickening Date Ultra Sound Latest Weeks Gestation Final Gal Confirmed By Final Gal Confirmed Date Final Gal Date Ultra Sound Latest Days Gestation 0 [...] Domestic Partner Domestic Partner Phone Father Name Route Rider Status 09/20/19 1 CLOSED Fetus Data First Name Last Name Admitted to NICU Weight (g) Sex Living Outcome Pediatric Complications Fetus ID Race Codes Race Delivery Type 2842 Vaginal Delivery Gal Calculation Initial Gal Date Initial Exam Date Initial Exam Provider Initial Ultrasound Date Last Menstrual Period Date Ultra Sound Weeks Gestation 0 Eighteen To Twenty Week Gal Update Ultra Sound Date Fundal Height At Umbil Quickening Date Ultra Sound Latest Weeks Gestation Final Gal Confirmed By Final Gal Confirmed Date Final Gal Date Ultra Sound Latest Days Gestation 0 [...] Domestic Partner Domestic Partner Phone Father Name Route Rider Status 09/20/19 1 CLOSED Fetus Data First Name Last Name Admitted to NICU Weight (g) Sex Living Outcome Pediatric Complications Fetus ID Race Codes Race Delivery Type 2843 Vaginal Delivery Gal Calculation Initial Gal Date Initial Exam Date Initial Exam Provider Initial Ultrasound Date Last Menstrual Period Date Ultra Sound Weeks Gestation 0 Eighteen To Twenty Week Gal Update Ultra Sound Date Fundal Height At Umbil Quickening Date Ultra Sound Latest Weeks Gestation Final Gal Confirmed By Final Gal Confirmed Date Final Gal Date Ultra Sound Latest Days Gestation 0 [...] Domestic Partner Domestic Partner Phone Father Name Route Rider Status 09/20/19 20 1 CLOSED Fetus Data First Name Last Name Admitted to NICU Weight (g) Sex Living Outcome Pediatric Complications Fetus ID Race Codes Race Delivery Type 2841 Vaginal Delivery Gal Calculation Initial Gal Date Initial Exam Date Initial Exam Provider Initial Ultrasound Date Last Menstrual Period Date Ultra Sound Weeks Gestation 0 Eighteen To Twenty Week Gal Update Ultra Sound Date Fundal Height At Umbil Quickening Date Ultra Sound Latest Weeks Gestation Final Gal Confirmed By Final Gal Confirmed Date Final Gal Date Ultra Sound Latest Days Gestation 0 [...]
== END 2024-04-01 11:58 | disposition home or self-care (01) ==
PROVIDERS: PCP Internal Medicine; Visit Provider Internal Medicine Cardiovascular Disease
DX: R00.0 Tachycardia, unspecified (principal)
CPT/HCPCS: 94618

== ENCOUNTER 2024-06-04 13:32 | Outpatient (CLI) | payer MEDICARE, MEDICAID, SELFPAY ==
--- OUTSIDE RECORDS SUMMARY | 2024-06-04 15:41 | XMS_ITS | Continuity of Care Document ---
Author Organization [facility] Address [address] [place] [address] Phone Care Team Providers Care Assistant Baseball Coach Name Role Phone Unavailable Unavailable Unavailable Procedures Procedure Date Limit Oral Evaluation- problem focused J Periapical Radiographic, first Image Mar Surgical extr erupted tooth Advance Directives Directive Yes / No Effective Date File Name No Information Encounters Encounter Description Practice Location Reason(s) For Visit Diagnoses Date Provider Providers Copied on Encounter [facility] , [address], [place], [place], [address], tel:[phone] [facility] No Information No Information [facility] , [address], [place], [place], [address], tel:[phone] [facility] Encounter for dental exam and cleaning w abnormal findings No Information Family History Family Member Type Diagnosis Age At Onset No Information Payers Payer name Insurance type Covered alliance party ID Authoriza tion(s) No Information Social History [...]
--- OUTSIDE RECORDS SUMMARY | 2024-06-04 15:41 | XMS_ITS | Data Portability ---
Author Organization [facility] Address [address] [place] [address] Assessment Encounter Date Assessment Date Assessment LastModified [...] kevin fuentes md interpretati on Not Available [facility] [address], [place], [address], 10/04/2019 17:04:50 10/09/19 21 10/08/2020 IMAGE GUIDE [...] as clini uyen simpson nted. Not Available [facility] (Lab) [address], [place], [address], 10/11/2020 15:01:56 11/14/19 20 11/14/2019 MAMMO , scree miguel, bilat eral No observ ation record ed. [facility] (Imaging) [address] [place], [address], 11/16/2019 10:14:24 Result Notes None recorded. Procedures Surgical History Date Name Laterality Status Provider Name and Address Organization Details Recorded Time 0 Date of Last Mammogram completed [facility] 10/08/2020 15:44:31 0 HYSTEROSCOPY, SURGICAL, WITH BIOPSY OF ENDOMETRIUM AND/OR POLYPECTOMY (SURG) completed Savannah Hood [facility] 07/24/2020 09:28:22 0 Date of Last Pap Smear completed Katja Levy [facility] 10/08/2020 15:44:09 Dilation and Curettage completed Heidi Weber [facility] 09/20/2019 15:07:34 Tubal Ligation completed Heidi Weber [facility] 09/20/2019 15:07:39 cone biopsy completed Heidi Weber CT Skylar [facility] 09/20/2019 15:07:48 Imaging Results Imaging Date Name Status LastModified by Organiz ation Details LastModified Time 11/14/2019 MAMMO, screening, bilateral completed [facility] (Imaging) [address], [place], [address], 11/16/2019 10:14:24 Procedure Notes None recorded. Medical Equipment None Reported. Allergies Allergen ID Allergen Name Allergen Category Reaction Reaction Severity Criticality Documentation Date Start Date Code Code System Note Provider Name and Address Organization Details Recorded Time 1275 codeine medicatio n Not available Not available Not available 09/20/2019 0340 RxNorm Heidi Weber [facility] 0 15:04:25 Medications Name Sig Start [...] Not Available Not Available No t Available Savannah active Not Available Not Availa ble Not [...] Updated DateTime 10/08/2020 162.56 cm 29.5 kg/m2 26935.89 g 150 mm[Hg] 90 mm[Hg] [facility] 1 15:44:00 Date Recorded Body height Body mass index (BMI) Body weight Systolic blood pressure Diastolic blood pressure Systolic blood pressure Diastolic blood pressure Provider Name and Address Organization Details Last Updated DateTime 0 162.56 cm 28 kg/m2 69890.5 6 g 157 mm[Hg] 77 mm[Hg] 151 mm[Hg] 83 mm[Hg] [facility] 0 16:33:31 Date Recorded Body height Body mass index (BMI) Body weight Systolic blood pressure Diastolic blood pressure Provider Name and Address Organization Details Last Updated DateTime 11/19/2019 162.56 cm 27.5 kg/m2 34401.78 g 154 mm[Hg] 87 mm[Hg] [facility] 0 16:28:17 Social History Question Answer Notes LastModified by [employer] ion Details LastModified Time Tobacco Smoking Status Never Smoker [facility] 09/20/2019 15:07:27 Do You Or Have [...] SNOMED-CT Code Diagnosis ICD10 Code Diagnosis Note [id number] Carole Avila , [facility] [address] [address] 09/20/2019 14:55:59 09/20/2019 16:26:17 Gynecologic examination 44524504 Z01.419 Take Calcium with Vitamin D 12-1500mg daily. Do monthly self breast exams. It is advised to get annual flu shot in the fall and she could obtain at [facility] or [facility] care clinic. If you haven't received the [...] by RA specialist . Pain in pelvis 70478978 R10.2 Abd bloating/w eight gain, pelvic pressure. Has a lot of GI issues. Seeing GI spec now. On linzess but wants to r/o ACTIVITY AID issues. Denies fam hx of ovarian/br east/colon cancer TVUS w/ OV [facility] [id number] [facility] [address] [address] 10/04/2019 16:21:09 10/05/2019 13:40:51 Pain in pelvis 08625713 R10.2 R14.0 [id number] Marcell Strickland MD [facility] [address],[place] [address] 10/04/2019 16:22:19 10/05/2019 13:40:06 Endometrium thickened 142649568 R93.89 Patient is a 64-year-ol d female [...] in thehospita l.She is hysterosco py D&C [id number] Marcell Strickland MD [facility] [address],[place] [address] 11/06/2019 11:29:08 11/06/2019 11:32:13 [id number] Marcell Strickland MD [facility] [address],[place] [address] 11/12/2019 14:41:44 11/12/2019 22:31:07 [id number] Marcell Strickland MD [facility] [address],[place] [address] 11/12/2019 16:28:12 11/12/2019 17:21:40 Postoperative care [id number] Z48.89 this patient is a 64-year-ol d [...] week. She will return in 1 week [id number] Marcell Strickland MD [facility] [address] [address] 11/19/2019 16:00:10 11/21/2019 12:02:46 Postoperative care [id number] Z48.89 This patient is a 64-year-ol d female presents for post op follow-up. She had somepostop bleeding. We performed a complicate d hysterosco py D&C where the cervix had to be dissected open. She had somepostop bleeding for about a week. Shortly resolved after our last visit. She was doing well now. She will follow up as needed. [id number] Marcell Strickland MD [facility] [address] [address] 10/08/2020 15:26:41 10/08/2020 16:31:00 Gynecologic examination 94641579 Z01.419 This patient is here for her [...] 11/05/2019 1 [place] Amber L Marsala [id number] Amber Marsala 11/12/2019 1 [place] Amber L Marsala [id number] Amber Marsala 11/12/2019 1 [place] Amber L Marsala [id number] Amber Marsala 11/19/2019 1 [place] Amber L Marsala [id number] Amber Marsala 10/08/2020 1 [place] Amber L Paulinoala [id number] Amber Marsala Notes Date Note Type [...] week Marcell Strickland MD [address], [place], [address], [facility] 11/12/2019 17:03:19 11/19/2019 text/html This [...] needed. Marcell Strickland MD [address], [place], [address], [facility] 11/19/2019 21:53:35 10/08/2020 text/html Annual GYNReport ed bypatient.History: no gynecologic complaints Menstrual cycle:Normal menses Urinary symptoms:No hematuria;Urge incontinence Vulva:No genital lesion Vagina:Normal vaginal discharge Breast:No breast pain; No breast lump; No nipple discharge Sexual complaints:No sexual complaints Menopausal Symptoms:No menopausal symptoms Psychological symptoms:No depression; No anxiety Preventive measures:Encourage self breast examination; Encourage regular exercise Marcell Strickland MD [address], [place], [address], [facility] 10/08/2020 16:25:04 OBGyn Episode Ob Episode Information Episode Created Date Number of Fetuses Patient Bloodtype Patient rh Status Prepregnancy Weight lbs Domestic Partner Domestic Partner Phone Father Name Field Training Manager Status 09/20/19 20 1 CLOSED Fetus Data [...] Domestic Partner Domestic Partner Phone Father Name Field Training Manager Status 09/20/19 1 CLOSED Fetus Data First [...] Domestic Partner Domestic Partner Phone Father Name Field Training Manager Status 09/20/19 1 CLOSED Fetus Data First [...] Domestic Partner Domestic Partner Phone Father Name Field Training Manager Status 09/20/19 20 1 CLOSED Fetus Data [...]
--- OUTSIDE RECORDS SUMMARY | 2024-06-04 15:42 | XMS_ITS | Encounter Summary ---
Author Organization [facility] Address [address] [place] [address] Care Team Providers Care Founder President And Ceo Name Role Phone Unknown, Froylannfile Primary Care Provider Unavail able Christofer Merrill MD Primary Care Provider Unknown, Froylannfile Primary Care Provider Unavail able Christofer Merrill MD Primary Care Provider Bro Cedeño MD Primary Care Provider [phone] Encounter Details Date Type Department Care Team (Late st Contact Info) Description 02/12/2014 Orders Only [facility] [address] [place] [address] Christofer Merrill MD [address] [facility] [address] [place] [address] Social History Tobacco Use Types Packs/Day Years Used Date Smoking Tobacco: Never Assessed Comments Unknown Sex and Gender Information Value Date Recorded Sex Assigned at Not on file Legal Sex 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 Gender Identity Not on file Sexual Orientation Not on file documented as of this encounter Plan of Treatment Not on file documented as of this encounter Procedures Procedure Name Priority Date/Time Associated Diagnosis Comments SCAN - OTHER ORDERS Routine 02/12/2014 documented in this encounter Results * SCAN - OTHER ORDERS (02/12/2014) us Historical Provider Final Res ult documented in this encounter Visit Diagnoses Not on filedocumented in this encounter Care Teams Founder President And Ceo Relationship Specialty Start Date End Date Unknown, Notinfile PCP - General 06/09/17 08/03/17 Christofer Merrill MD PCP - General 08/04/17 08/04/17 Unknown, Notinfile PCP - General 08/05/17 12/21/17 Christofer Merrill MD PCP - General Internal Medicine 12/22/17 01/25/23 Bro Cedeño MD [address] [place] [address] PCP - General Internal Medicine 02/05/24 documented as of this encounter
--- OUTSIDE RECORDS SUMMARY | 2024-06-04 15:42 | XMS_ITS | Clinical Summary ---
Author Organization [facility] Address [address] [place] [address] Care Team Providers Care Estimator Binding Name Role Phone Christofer Merrill MD Primary Care Provider [phone] Taurus Gleason DC Unavailable Yvonne Rae MD Unavailable Source Comments [facility],non-owned Affiliates and Associated Physician Practices is amultiple site organization consisting of ambulatory clinics and hospital sitesin [place], [place], [place] and [place]. This disclosure is being madepursuant to the Care Everywhere program and may not contain all information available regarding this patient. Last updated 17.[facility] Allergies Active Allergy Reactions Criticality Noted Date Comments Codeine Itching Medium 12/12/2011 Medications * Be aware that medications may not be up to date on this document. Alwaysverify current medications with the patient. Medication Sig Dispensed Refills Start Date End Date Status hydrocodone-acetami nophen (NORCO) 10-325 MG tablet Active ALPRAZolam (XANAX) 2 MG tablet 4 times daily. Active omeprazole (PRILOSEC) 20 MG capsule TK 1 C PO QD 11/12/2016 Active albuterol HFA (VENTOLIN HFA) 108 (90 BASE) MCG/ACT inhaler INL 2 PFS PO Q 4 H 10/04/2016 Active folic acid (FOLVITE) 1 MG tabletIndications:R heumatoid arthritis involving multiple sites with positive rheumatoid factor (HCC) Take 1 mg by mouth once daily 3 08/01/2017 Active vitamin D, cholecalciferol, 2000 UNITS tabletIndications:R heumatoid arthritis involving multiple sites with positive rheumatoid factor (HCC) Take 2,000 Units by mouth once daily Active B Complex Vitamins (VITAMIN B COMPLEX PO)Indications:Rheu matoid arthritis involving multiple sites with positive rheumatoid factor (HCC) Active TURMERIC CURCUMIN POIndications:Rheum atoid arthritis involving multiple sites with positive rheumatoid factor (HCC) Active DULoxetine (CYMBALTA) 60 MG capsule Take 60 mg by mouth 2 times daily 4 08/31/2017 Active diclofenac sodium (VOLTAREN) 1 % gel 08/04/2017 Active ibuprofen (MOTRIN) 800 MG tablet ibuprofen 800 mg tablet Active fluticasone-vilante rol (BREO ELLIPTA) 100-25 MCG/INH inhalerIndications: Chronic obstructive pulmonary disease, unspecified COPD type ([facility]) Inhale 1 puff by mouth once daily Administer at the same time each day. Rinse mouth after using 1 Inhaler 4 10/26/2017 Active gabapentin (NEURONTIN) 300 MG capsuleIndications: Pain in joint, multiple sites 1 tab po at night and then increase to 1 tab po twice a day in 3 weeks if no side effects 60 capsule 1 10/26/2017 Active predniSONE (DELTASONE) 5 MG tablet TAKE 2 TABLETS BY MOUTH EVERY DAY 60 tablet 11/07/2017 Active clotrimazole (LOTRIMIN AF) 1 % cream 2 times daily To right ear for itching 28 g 3 11/28/2017 Active HUMIRA PEN 40 MG/0.8ML injection ADMINISTER 0.8 ML UNDER THE SKIN EVERY 14 DAYS 2 kit 12/21/2017 Active Active Problems Problem Noted Date Diagnosed Date Sensorineural hearing loss (SNHL) of both ears 0 11/28/2017 Left ear pain 11/28/2017 Tinnitus of left ear 11/28/2017 Bladder polyp 11/28/2017 Depressive disorder 11/28/2017 Hypertriglyceridemia 11/28/2017 Menopausal syndrome 11/28/2017 Vitamin D deficiency 11/28/2017 Rheumatoid arthritis involvi ng multiple sites with positive rheumatoid factor 08/22/2017 Cervical spondylosis without myelopathy 12/13/19 12 Resolved Problems Problem Noted Date Diagnosed Date Resolved Date Constipation 11/28/2017 12/26/2017 Immunizations Name Administration Dates Next Due INFLUENZA VACCINE, QUADR. (F LUZONE; FLULAVAL; FLUARIX; AFLURIA QUADRIVALENT; 6MO+), 0.5 ML (IIV4) 12/06/2016 Social History Tobacco Use Types Packs/Day Years Used Date Smoking Tobacco: Former Cigarettes 1 40 1 976 - 2016 Smokeless Tobacco: Never Comments:States she vapes no w Alcohol Use Standard Drinks/Week Comments No 0 (1 standard drink = 0.6 oz pur e alcohol) Sex and Gender Information Value Date Recorded Sex Assigned at Not on file Gender Identity Not on file Sexual Orientation Not on file Last Filed Vital Signs Vital Sign Reading Time Taken Comments Blood Pressure 177/82 03/15/2023 10:34 PM INTERVENTIONAL PHYSIATRIST Pulse 86 03/15/2023 10:34 PM INTERVENTIONAL PHYSIATRIST Temperature 36.8 C (98.3 F) 03/15/2023 10:34 PM INTERVENTIONAL PHYSIATRIST Respiratory Rate 22 03/15/2023 10:34 PM INTERVENTIONAL PHYSIATRIST Oxygen Saturation 100% 03/15/2023 10:34 PM INTERVENTIONAL PHYSIATRIST Inhaled Oxygen Concentration - - Weight 61.7 kg (136 lb) 03/15/2023 2:00 PM INTERVENTIONAL PHYSIATRIST Height 162.6 cm (5' 4 ) 03/15/2023 2:00 PM INTERVENTIONAL PHYSIATRIST Body Mass Index 23.34 03/15/2023 2:00 PM INTERVENTIONAL PHYSIATRIST Plan of Treatment Health Maintenance Due Date Last Done Comments BONE DENSITY TESTING 1955 COLOGUARD (AGES 45-75) - COLON CA SCREENING 1956 COLON MONITORING 1956 COLONOSCOPY - COLON CA SCREENING 1956 CT COLONOGRAPHY - COLON CA SCREENING 1955 Colorectal Cancer Screening 1956 FIT - COLON CA SCREENING 1956 FLEX SIG - COLON CA SCREENING 1956 LIPID TESTING 1955 MAMMOGRAM 1956 DTAP/TDAP/TD VACCINES (1 - Tdap) 09/10/1975 PNEUMOCOCCAL VACCINE 50+ (1 of 1 - PCV) 2006 ZOSTER VACCINE (1 of 2) 2006 COVID-19 VACCINE (1 - season) 2023 INFLUENZA VACCINE (#1) 2023 7, 12/09/2015, 12/07/2014, Additional history exists DEPRESSION SCREENING 03/13/2024 MEDICARE AWV CALENDAR YEAR 2024 Respiratory Syncytial Virus (RSV) Vaccine Pt: or over 60 yrs (1 - 1-dose 75+ series) 09/10/2031 HEPATITIS C SCREENING Completed 08/22/2017 HEPATITIS B VACCINE Aged Out No longe r eligible based on patient's age to complete this topic HIB VACCINE Aged Out No longer eligi ble based on patient's age to complete this topic HPV VACCINE Aged Out No longer eligi ble based on patient's age to complete this topic MENINGOCOCCAL (Group B) VACCINE SHARED DECISION-MAKING Aged Out No longer eligible based on patient's age to complete this topic MENINGOCOCCAL GROUPS A/C/Y/W VACCINE Aged Out No longer eligible based on patient's age to complete this topic Procedures Procedure Name Priority Date/Time Associated Diagnosis Comments HEPATITIS SCREEN ACUTE Routine 08/22/2017 2:35 PM CDT Rheumatoid arthritis involving multiple sites with positive rheumatoid factor Malaise and fatigue from Last 3 Months or Most Recently Relevant to Health Maintenance Results * HEPATITIS SCREEN ACUTE (08/22/2017 2:35 PM CDT) Hepatitis A Virus Antibody IgM Negative Negative [facility] INSURANCE BILL Hepatitis B Virus Surface Antigen Negative Negative [facility] INSURANCE BILL Hepatitis B Core Virus Antibody IgM Negative Negative [facility] INSURANCE BILL Hepatitis C Antibody <0.1 0.0 - 0.9 s/co ratio [facility] INSURANCE BILL Comment: Negative: < 0.8 Indeterminate: 0.8 - 0.9 Positive: > 0.9 . The CDC recommends that a positive HCV antibody result be followed up with a HCV Nucleic Acid Amplification test (695022). Blood BLOOD SPECIMEN / Unknown 08/22/2017 2:35 PM CDT 08/22/2017 Narrative Resulting Agency [facility] [address] [facility] [id number] Yvonne Rea MD LAB - CHEMISTRY DEO LYONS [facility] INSURANCE BILL [address] [place] [address] from Last 3 Months or Most Recently Relevant to Health Maintenance Care Teams Estimator Binding Relationship Specialty Start Date End Date Christofer Merrill MD [address] [address] [address] [place] [id number] PCP - General Internal Medicine 12/06/11 Taurus Gleason DC [address] [place], [place] [address] Chiropractic 12/13/11 [place] [address] [facility] [place] [address] Rheumatology 08/22/17
--- OUTSIDE RECORDS SUMMARY | 2024-06-04 15:42 | XMS_ITS | Clinical Summary ---
Author Organization [facility] Sherwin Pina Address [address] [place] [address] Care Team Providers Care Pointing Machine Operator Name Role Phone Bro Cedeño MD Primary Care Provider [phone] Allergies Active Allergy Reactions Criticality Noted Date Comments Codeine Itching,Nausea and Vomiting High 12/12/19 12 Medications Eliquis 5 mg tablet Take 1 Tablet by mouth 2 times daily. 09/07/2023 Active DULoxetine (CYMBALTA) 60 mg Capsule, Delayed Release(E.C.) take 1 capsule by mouth every day in the morning Active gabapentin (NEURONTIN) 300 mg capsule Take 1 Capsule by mouth 2 times daily. 08/09/2023 Active Synthroid 75 mcg tablet Take 75 mcg by mouth daily. Active morphine (MS CONTIN) 15 mg Controlled Release tablet TAKE 1 TABLET (15 MG) BY ORAL ROUTE EVERY 12 HOURS Active tramadol HCl (TRAMADOL ORAL) Take by mouth. Active famotidine (PEPCID) 20 mg tablet Take 1 Tablet by mouth daily. 12/05/2023 Active pantoprazole (PROTONIX) 40 mg Tablet, Delayed Release (E.C.) Take 1 Tablet by mouth daily. 12/17/2023 Active pramipexole (MIRAPEX) 0.25 mg tablet TAKE 1 TABLET BY MOUTH IN THE MORNING AND 2 TABLETS AT BEDTIME 10/07/2023 Active predniSONE (DELTASONE) 5 mg tablet TAKE 1 TO 3 TABLETS BY MOUTH DAILY NEEDED Active cyclobenzaprine (FLEXERIL) 10 mg tablet Take 10 mg by mouth 3 times daily as needed for Spasm. Active amLODIPine (NORVASC) 5 mg tablet Take 5 mg by mouth daily. Active Active Problems No known active problems Encounters Date Type Department Care Team Description 05/29/2024 External Device Data STL ABSTRACTION Provider, Abstract 05/22/2024 External Device Data ST[facility] ABSTRACTION Provider, Abstract 05/21/2024 External Device Data [facility] ABSTRACTION Provider, Abstract 05/18/2024 External Device Data [facility] ABSTRACTION Provider, Abstract 05/17/2024 External Device Data [facility] ABSTRACTION Provider, Abstract 05/15/2024 External Device Data [facility] ABSTRACTION Provider, Abstract 05/03/2024 11:45 AM FIELD ASSEMBLY SUPERVISOR Office Visit [facility] Oncology and Hematology - Matt Yovani Santos [address] [place] [address] Fili Valentin MD Chronic anemia (Primary Dx) 05/01/2024 External Device Data STL ABSTRACTION Provider, Abstract 05/01/2024 External Device Data ST[facility] ABSTRACTION Provider, Abstract 04/03/2024 External Device Data ST[facility] ABSTRACTION Provider, Abstract 04/03/2024 External Device Data ST[facility] ABSTRACTION Provider, Abstract 03/26/2024 External Device Data STL ABSTRACTION Provider, Abstract from Last 3 Months Family History Medical History Relation Name Comments No Known Problems Brother No Known Problems Child 1 No Known Problems Child 2 No Known Problems Child 3 Heart Disease Child 4 Liver Cancer Sister 1 Cancer Sister 2 No Known Problems Sister 3 Relation Name Status Comments Brother Child 1 Alive Child 2 Alive Child 3 Alive Child 4 Alive Father Mother Sister 1 Sister 2 Sister 3 Social History Tobacco Use Types Packs/Day Years Used Date Smoking Tobacco: Former Cigarettes 1.5 48 Q uit: 09/25/2015 Tobacco Cessation:Counseling Given: Not Answered Alcohol Use Standard Drinks/Week Comments Never 0 (1 standard drink = 0.6 oz pur e alcohol) Comments Unknown Sex and Gender Information Value Date Recorded Sex Assigned at Not on file Legal Sex Female 11:26 AM CDT Gender Identity Not on file Sexual Orientation Not on file Last Filed Vital Signs Vital Sign Reading Time Taken Comments Blood Pressure 158/92 05/03/2024 11:58 AM FIELD ASSEMBLY SUPERVISOR did not take bp medicine Pulse 89 05/03/2024 11:56 AM FIELD ASSEMBLY SUPERVISOR Temperature 36.5 C (97.7 F) 05/03/2024 11:56 AM FIELD ASSEMBLY SUPERVISOR Respiratory Rate 16 05/03/2024 11:5 6 AM FIELD ASSEMBLY SUPERVISOR Oxygen Saturation 97% 05/03/2024 11: 56 AM FIELD ASSEMBLY SUPERVISOR Inhaled Oxygen Concentration - - Weight 59 kg (130 lb) 05/03/2024 11:56 AM FIELD ASSEMBLY SUPERVISOR Height 162.6 cm (5' 4 ) 09/25/2023 3:11 PM CDT Body Mass Index 22.31 09/25/2023 3:11 PM CDT Plan of Treatment Upcoming Encounters Date Type Department Care Team (Late st Contact Info) Description 09/06/2024 12:45 PM CDT Office Visit [facility] Oncology and Hematology [facility] [address] [facility] [address] [place] [address] Fili Valentin MD [address] [facility] [address] [place] [address] Health Maintenance Due Date Last Done Comments DTAP/TDAP/TD VACCINES (1 - Tdap) 09/10/1975 PNEUMOCOCCAL VACCINE 50+ YEA RS (1 of 2 - PCV) 09/10/1975 BREAST CANCER SCREENING 1996 FIT-DNA Q 3 years 2001 FIT/FOBT Q 1 year 2001 Flex Sig/CT Colonography Q 5 years 2001 ZOSTER VACCINE (1 of 2) 2006 RSV VACCINE (60+ or ) (1 - Risk 60-74 years 1-dose series) 2016 Lung Cancer Screening 03/10/2022 03/10/2021, 020 INFLUENZA VACCINE (#1) 2023 12/06/2016 COLORECTAL SCREENING 12/28/2033 12/29/2023 Colorectal Cancer Screening 12/28/2033 OSTEOPOROSIS SCREENING Completed 02/05/2024, 2023 Procedures Procedure Name Priority Date/Time Associated Diagnosis Comments COLONOSCOPY REPORT Routine 12/29/2023 9:26 AM CDT from Last 3 Months or Most Recently Relevant to Health Maintenance Results * COLONOSCOPY REPORT (12/29/2023 9:26 AM CDT) us Provider Scanning GI PROCEDURE ORDERABLES Final Result from Last 3 Months or Most Recently Relevant to Health Maintenance Insurance [facility] [id number] Care Teams Pointing Machine Operator Relationship Specialty Start Date End Date Bro Cedeño MD [address] [place] [phone] PCP - General Internal Medicine 03/22/24
--- OUTSIDE RECORDS SUMMARY | 2024-06-04 15:42 | XMS_ITS | Encounter Summary ---
Author Organization [facility] Address [address] [place] [address] Care Team Providers Care Tire Fabric Impregnating Range Tender Name Role Phone Unknown, Notinfile Primary Care Provider Unavail able Christofer Merrill MD Primary Care Provider Unknown, Notinfile Primary Care Provider Unavail able Christofer Merrill MD Primary Care Provider Bro Cedeño MD Primary Care Provider [phone] Encounter Details Date Type Department Care Team (Late st Contact Info) Description 02/12/2014 Orders Only [facility] [place] [facility] Information Management [address] [place] [id number] Amrit Ford MD [address] [place] [id number] Social History Tobacco Use Types Packs/Day Years Used Date Smoking Tobacco: Never Assessed Comments Unknown Sex and Gender Information Value Date Recorded Sex Assigned at Not on file 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 Gender Identity Not on file Sexual Orientation Not on file documented as of this encounter Plan of Treatment Not on file documented as of this encounter Procedures Procedure Name Priority Date/Time Associated Diagnosis Comments SLEEP LAB/STUDY - RESULT Routine 02/12/2014 documented in this encounter Results * SLEEP LAB/STUDY - RESULT (02/12/2014) us Historical Provider Final Res ult documented in this encounter Visit Diagnoses Not on filedocumented in this encounter Care Teams Tire Fabric Impregnating Range Tender Relationship Specialty Start Date End Date Unknown, Notinfile PCP - General 06/09/17 08/03/17 Christofer Merrill MD PCP - General 08/04/17 08/04/17 Unknown, Notinfile PCP - General 08/05/17 12/21/17 Christofer Merrill MD PCP - General Internal Medicine 12/22/17 01/25/23 Bro Cedeño MD [address] [place] [id number] PCP - General Internal Medicine 02/05/24 documented as of this encounter
--- OUTSIDE RECORDS SUMMARY | 2024-06-04 15:42 | XMS_ITS ---
Author Organization [facility] Address [address] [facility] [address] [place] [address] Care Team Providers Care Boat Fueler Name Role Phone Bro Cedeño Primary Care Provider Ashok Angeles Unavailable [phone] REASON FOR VISIT MRI Encounters Encounter Location Date Provider Diagnosis [facility] [address] [facility] [address] [place] [address] 05/23/2024 Ashok Tovar PLAN OF TREATMENT No Information
--- OUTSIDE RECORDS SUMMARY | 2024-06-04 15:42 | XMS_ITS | Encounter Summary ---
Author Organization [facility] Health Address [address] [place] [address] Care Team Providers Care Measurement And Verification Engineer Name Role Phone Christofer Merrill MD Primary Care Provider [phone] Taurus Gleason DC Unavailable Yvonne Rae MD Unavailable Encounter Details Date Type Department Care Team (Late st Contact Info) Description 03/20/2018 [facility] Outpatient Visit [facility] [address] [place] [address] [place] [id number] [address] Social History Tobacco Use Types Packs/Day Years [...] on file documented as of this encounter Visit Diagnoses Not on filedocumented in this encounter Care Teams Measurement And Verification Engineer Relationship Specialty Start Date End Date Christofer Merrill MD [address] [place] [address] [address] [place] [address] PCP - General Internal Medicine 12/06/11 Taurus Gleason DC [address] [place] [address] Chiropractic 12/13/11 [place] [address] [place] [address] [place] [phone] Rheumatology 08/22/17 documented as of this encounter
--- OUTSIDE RECORDS SUMMARY | 2024-06-04 15:42 | XMS_ITS ---
Author Organization [facility] Address [address] [facility] [address] [place] [address] Care Team Providers Care Primary School Teacher Librarian Name Role Phone Bro Cedeño Primary Care Provider Ashok Angeles Unavailable [phone] REASON FOR VISIT Procedure Encounters Encounter Location Date Provider Diagnosis [facility] [address] [facility] [address] [place] [address] 05/29/2024 Ashok Tovar PLAN OF TREATMENT No Information
--- OUTSIDE RECORDS SUMMARY | 2024-06-04 15:42 | XMS_ITS | Data Portability ---
Author Organization [place] - [facility] [place], Main Office Address [address] [place] [address] Care Team Providers Care Human Resources Hr Representative Name Role Phone LAMINE CEDEÑO Primary Care Provider LAMINE CEDEÑO Referring Provider Assessment Encounter Date Assessment Date Assessment LastModified by Organization Details LastModified Time 01/23/2024 01/23/2024 This note is dictated and transcribed by [employer]. Bronzer variances may occur. Despite proofreading, typographical errors may occur. Occasional wrong-word or '[id number]' substitutions may have occurred due to the inherent limitations of voice recording. Read the chart carefully and recognize, using context, where substitutions have occurred. [email or web address] Not available 01/24/2024 17:39:13 Plan of Treatment Reminders Order Date Submit Date Provider Last Modified By Organization Details Last Modified Time Details Appointments Any 15 2024 01:15P M Lamine Cedeño MD Not available Not available Not available Lab None recorded. Referral pain managemen t referral - Please call patient to schedule. 2023 024 [email or web address] [facility], [address], [place], [address], 03/15/2024 09:41:16 Procedures None recorded. Surgeries None recorded. Imaging None recorded. Medication Orders amoxicill in 500 mg capsule 2024 025 [facility][id number], [address], [place], [address], 05/02/2024 11:30:35 furosemid e 20 mg tablet 2024 025 [id number], [address], [place], [address], 05/02/2024 11:20:51 amitripty line 25 mg tablet 2023 024 [email or web address] [id number], [address], [place], [address], 03/14/2024 10:20:41 Patient TargetsNo targets recorded. Patient InstructionsNo instructions [...] miguel breas t damien, bilat [facility] [address] [place] [address] Patien t Name: ALTA ANTUNEZ Access ion #: [id number] Sex: F : 1955 6 Dictat [...] BIRADS : 2 - Benign Page 1 [facility] [address] [place] [address] Patien t Name: ALTA ANTUNEZ Access ion #: [id number] Sex: F : 1955 6 Dictat ed By: Tesha Kothari Attend ing Physic az: PATRICIA ISSA Physic az: VON CEDEÑO ER Exam Date: 2023 14:24 PM Exam Name: MG SCRN BREAST DAMIEN BILAT Admitt ing Diagno sis(es ): Electr onical ly Signed by: Tesha Kothari at 2023 15:05: 32 PM Page 2 [email or web address] [facility] (Imaging) [address] [place], [address], 01/10/2024 16:19:30 01/02/20 24 08/22/2023 upper endos [...] study No observ ation record ed. [email or web address] [facility] (Cardiology & Emg) [address], [place], [address], 01/23/2024 11:56:57 01/24/20 24 07/10/2023 DEXA, axial skele ton No observ ation record ed. Not Available 2023 15:39:51 02/20/20 24 02/08/2024 CT, abdom en + pelvi s, w/ contr ast No observ ation record ed. BARCODE Not Available 2023 18:43:38 04/16/19 25 04/01/2024 6 minut e walk test* No observ ation record ed. Not Available 2024 11:52:55 Result Notes None recorded. Problems Name Problem SNOMED Code Status Onset Date Resolution Date Notes Provider Name and Address Organization Details Recorded Time Numbness and tingling sensation of skin 72929465551 2 Active 2021 Not Available [employer] 3 01:16:23 Irritable bowel syndrome 33606030 Completed Not Available [employer] 3 01:16:23 Lumbar radiculop athy 153823296 Active 2016 Not Available [employer] 3 01:16:24 Chronic obstructi ve pulmonary disease 17610649 Active 2019 Not Available [employer] 3 01:16:24 Urinary incontine nce 261679000 Active Not Available [facility] 3 01:16:24 Nausea and vomiting 38323877 Active 2021 Not Available [facility] 3 01:16:24 Asthma 936727391 Completed 201708/12/2019 Not Available [employer] 3 01:16:24 Anxiety disorder 591438561 Active Lamine Cedeño MD [address], [place], [address] , [employer] 4 15:11:34 Hand joint pain 653495617 Active Not Available [employer] 3 01:16:24 Fibromyal justin 027788985 Active Not Available [facility] 3 01:16:24 Lumbar sprain 338585287 Completed Not Available [facility] 3 01:16:24 Gastric reflux 367778457 Completed 201608/12/2019 Not Available [facility] 3 01:16:25 Gastroeso phageal reflux disease 254945950 Active 2019 Lamine Cedeño MD [address], [place], [address] , [employer] 4 14:34:15 Pure hyperchol esterolem ia 243236507 Active Not Available [facility] 3 01:16:25 Anemia 147367223 Active 2022 Lamine Cedeño MD [address], [place], [address] , [employer] 4 14:33:51 Low back pain 875368578 Active 2020 Not Available [facility] 3 01:16:25 Chest pain 04644577 Completed 201712/03/2018 Not Available [employer] 3 01:16:25 Pain of right wrist 07371348562 9100 Active 2020 Not Available [employer] 3 01:16:25 Osteoarth ritis of left knee joint 81194601641 9109 Active 2022 Not Available [employer] 3 01:16:26 Osteoarth ritis of right knee joint 12881669543 9100 Active 2022 Not Available [employer] 3 01:16:26 Restless legs 89327745 Active Lamine Cedeño MD [address], [place], [address] , [employer] 4 14:36:46 Vitamin D deficienc y 77911285 Active 2022 Lamine Cedeño MD [address], [place], [address] , [employer] 4 14:35:29 Depressiv e disorder 12652299 Active Not Available [facility] 3 01:16:26 Chronic pain syndrome 588229364 Active 2017 Lamine Cedeño MD [address], [place], [address] , [employer] 4 15:11:54 Hypothyro idism 75236620 Active 2020 Lamine Cedeño MD [address], [place], [address] , [employer] 4 15:12:11 Trigger finger Active Not Available [employer] 3 01:16:27 Swelling of lower leg 021256585 Active 2022 Not Available [employer] 3 01:16:27 Pain of bilateral knee joints 22200923693 4104 Active 2022 Not Available [employer] 3 01:16:27 Anxiety 67771915 Completed Not Available [employer] 3 01:16:28 Cervical radiculop athy 64142359 Active Not Available [employer] 3 01:16:28 Carpal tunnel syndrome 77898437 Active Lamine Cedeño MD [address], [place], [address] , [employer] 4 15:11:37 Muscle pain 88219299 Active 2021 Not Available [employer] 3 01:16:28 Urethral caruncle 7324741 Active Not Available [employer] 3 01:16:28 Rheumatoi d arthritis 89305328 Active 2018 Lamine Cedeño MD [address], [place], [address] , [employer] 4 15:12:22 Prediabet es 190413127 Active 2021 Lamine Cedeño MD [address], [place], [address] , [employer] 4 14:35:00 Brachial neuritis 07449737 Active Not Available [employer] 3 01:16:29 COVID-19 105114659 Active 2021 Not Available [employer] 3 01:16:29 Postchole cystectom y syndrome 52049003 Active 2016 Not Available [employer] 3 01:16:29 Paresthes ia of upper limb 43166690 Active 2021 Not Available [facility] 3 01:16:30 Iron deficienc y anemia 11586165 Active 2022 Lamine Cedeño MD [address], [place], [address] , [employer] 4 14:36:36 Focal motor weakness 480392264 Active 2022 Ana Paula Urban MD [address], [place], [address] , [employer] 3 15:20:36 Abnormal uterine bleeding 88420078822 100 Active 2022 Ana Paula Urban MD [address], [place], [address] , [employer] 3 15:21:20 Effusion of joint of left knee 62552171899 9105 Active 2022 LORIE Villanueva [address], [place], [address] , [employer] 3 10:39:00 MRI of head abnormal 53504109870 9107 Active 2022 Ana Paula Urban MD [address], [place], [address] , [facility] [place] [facility] [employer] 3 22:56:04 Bilateral wrist pain 81880069132 762855 Active 2022 Joan Werner PROFESSOR OF SURGERY null, [place] [facility] [employer] 3 10:01:16 Bilateral carpal tunnel syndrome 70049968411 833083 Active 2022 LORIE Villanueva [address], [place], [address] , [facility] [employer] 3 11:32:59 Pain of bilateral hands 85727006743 466942 Active 2022 Joan Werner PROFESSOR OF 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 null, [place] [facility] [employer] 3 11:35:45 Postmenop ausal osteoporo sis 973833562 Active 2022 Lamine Cedeño MD [address], [place], [address] , [facility] [employer] 4 14:35:50 Pain of right knee joint 35460841827 4100 Active 2023 Cecilia Givens RMColleen mckee, [place] [facility] [employer] 4 12:33:15 Pain of left knee joint 00192586143 4107 Active 2023 Cecilia Givens RMColleen mckee, [place] [facility] [employer] 4 12:33:29 Bilateral osteoarth ritis of knees 24218577911 9107 Active 2023 Lamine Cedeño MD [address], [place], [address] , [facility] [employer] 4 14:34:09 Overactiv e urinary bladder 478855346 Active 2023 Lamine Cedeño MD [address], [place], [address] , [facility] [employer] 4 14:37:06 Nodule of lung 408824893 Active 2023 Laimne Cedeño MD [address], [place], [address] , [place] [facility] [place] [facility] [employer] 4 15:16:23 Osteoporo sis 28880749 Active 2023 Lamine Cedeño MD [address], [place], [address] , [place] [facility] [place] [facility] [employer] 4 15:18:14 Rib pain 357535347 Active 2023 Adelia Swift MA null, [place] [facility] [place] [facility] [employer] 4 14:27:46 Pain of bilateral knee regions 46822407987 4102 Active 2023 Lamine Cedeño MD [address], [place], [address] , [place] [facility] [employer] 4 10:04:14 Neuropath y 460156449 Active 2023 Lamine Cedeño MD [address], [place], [address] , [place] [facility] [employer] 4 10:04:39 Edema of lower extremity 558339373 Active 2023 Kassy Gore NP [address], [place], [address] , [place] [facility] [employer] 4 15:29:24 Pulmonary embolism 19587665 Active 2023 Lamine Cedeño MD [address], [place], [address] , [place] [facility] [place] [facility] [employer] 4 14:58:28 Diarrhea 43697652 Active 2023 Lamine Cedeño MD [address], [place], [address] , [place] [facility] [place] [facility] [employer] 4 14:26:07 Dehydrati on 70058917 Active 2023 Lamine Cedeño MD [address], [place], [address] , [place] [facility] [place] [facility] [employer] 4 14:27:26 Pneumonia 675846753 Active 2023 Lamine Cedeño MD [address] [facility], [place] [address], [place], [address] , [place] [facility] [place] [facility] [employer] 4 15:47:38 Hyponatre valerie 00055102 Active 2023 Lamine Cedeño MD [address] [facility], [place] [address], [place], [address] , [place] [facility] [employer] 4 15:47:49 Vaginitis 26959314 Active 2023 Lamine Cedeño MD [address] [facility], [place] [address], [place], [address] , [place] [facility] [employer] 15:49:05 Chest wall pain 913592832 Active 2023 Lamine Cedeño MD [address] [facility], [place] [address], [place], [address] , [place] [facility] [employer] 15:38:50 Bronchiti s 91465979 Active 2023 Tona mckee, [place] [facility] [place] [facility] [employer] 10:54:00 Ear problem 947092581 Active 2023 Tona mckee, [place] [facility] [employer] 10:54:22 Headache 04110390 Active 2023 Tona mckee, [place] [facility] [place] [facility] [employer] 10:54:46 Heartburn 52515145 Active 2023 Tona Carson null, [place] [facility] [employer] 4 10:55:24 Disorder of lung 34702406 Active 2023 Tona mckee, [place] [facility] [place] [facility] [employer] 10:55:37 Disorder of thyroid gland 95231377 Active 2023 Tona mckee, [place] [facility] [place] [facility] [employer] 4 10:56:19 Idiopathi c periphera l neuropath y 25661698 Active 2023 Kd Gregorio DPM [address], [place], [address] , [facility] [employer] 4 11:00:14 Muscle weakness of limb 616580801 Active 2023 Kd Gregorio DPM [address], [place], [address] , [facility] [employer] 4 11:01:00 Bunion 571360346 Active 2023 Kd Gregorio DPM [address], [place], [address] , [facility] [employer] 4 11:01:06 Hammer toe 992291573 Active 2023 Kd Gregorio DPM [address], [place], [address] , [facility] [employer] 4 11:02:01 Laceratio n of skin 645627085 Active 2023 Lamine Cedeño MD [address], [place], [address] , [facility] [employer] 4 15:52:10 Right flank pain 795635053 Active 2023 Adelia Swift MA null, [facility] [employer] 4 11:57:01 Urinary symptoms 910780260 Active 2023 Precious Bryan LPN null, [facility] [employer] 4 13:57:58 Acute right otitis media 719863887 Active 2024 Lamine Cedeño MD [address], [place], [address] , [facility] [employer] 5 11:30:01 Upper respirato ry infection 85583944 Active 2024 Adelia Swift MA null, [facility] [employer] 5 12:20:14 Cough 51717619 Active 2024 Adelia Swift MA [facility], [employer] 12:20:22 Notes:Some problems listed i n Documents: #[id number], #[id number], #[id number] could not be added to this patient's chart. Please review these documents and add these problems to the patient's chart manually as needed. Problem Notes None recorded. Procedures Surgical History Date Name Laterality Status Provider Name and Address Organization Details Recorded Time 11/08/19 Ortho - Cortisone Injection completed Kolton Gutierrez MD [address] [facility], [address] [place] [address], [place], [address], [facility] [employer] 11/07/2022 10:03:10 06/24/19 21 Date of Last Colonoscopy completed Not Available [facility] 05/11/2022 01:05:55 08/14/19 Most Recent Bone Density completed Not Available [facility] 05/11/2022 01:05:56 Cataract Surgery completed Not Available [facility] 05/11/2022 01:06:02 Knee Surgery completed Not Available [facility] 05/11/2022 01:06:02 ligation of bilateral fallopian tubes completed Not Available [facility] 05/11/2022 01:06:02 Cholecystectomy completed Not Available [facility] 05/11/2022 01:06:02 Gallbladder Surgery completed Not Available [facility] 05/11/2022 01:06:02 Imaging Results Imaging Date Name Status LastModified by Organization Details LastModified Time 10/30/2023 CT, chest, w/o contrast completed Information not available 11/02/2023 09:41:06 01/01/2024 screening breast damien, bilat completed [email or web address] [facility] (Imaging) [address] [place], [address], 01/10/2024 16:19:30 08/22/2023 upper endoscopy procedure (EGD) (PROC) completed Information not available 01/03/2024 12:01:05 12/29/2023 colonoscopy screening (PROC) completed Information not available 01/03/2024 12:01:00 12/29/2023 colonoscopy screening (PROC) completed Information not available 01/03/2024 12:00:47 08/22/2023 upper endoscopy procedure (EGD) (PROC) completed Information not available 01/03/2024 12:00:41 01/23/2024 electromyogram + nerve conduction study completed [email or web address] (Cardiology & Emg) [address], [place], [address], 01/23/2024 11:56:57 07/10/2023 DEXA, axial skeleton completed Information not available 01/24/2024 15:39:51 02/08/2024 CT, abdomen + pelvis, w/ contrast completed BARCODE Information not available 02/20/2024 18:43:38 04/01/2024 6 minute walk test* completed Information not available 04/18/2024 11:52:55 Procedure Notes None recorded. Medical Equipment None Reported. Allergies Allergen ID Allergen Name Allergen Category Reaction Reaction Severity Criticality Documentation Date Start Date Code Code System Note Provider Name and Address Organization Details Recorded Time 2470 Avelox medicatio n rash Not available Not available 05/11/2022 85935 6 RxNorm Not Available [facility] 3 01:30:21 2471 codeine medicatio n nausea Not available Not available 05/11/2022 2670 RxNorm JENNIFER Alvarado, [place] [facility] [place] [facility] [employer] 4 12:28:49 Medications Name Sig Start Date Stop Date Status Note LastModified by Organization Details LastModified Time Pravachol 40 mg tablet one tablet at bedtime active Not Available Not Available No t Available cyclobenz aprine 10 mg tablet TAKE 1 TABLET BY MOUTH THREE TIMES A DAY FOR MUSCLE SPASM CONTROL active Not Available Not Available No t Available amoxicill in 500 mg capsule Take 1 capsule 3 times a day by oral route for 7 days. 2024 active per 06/04/24 patient case / ds Not Available Not Available Not Available pramipexo [...] Not Available Not Available Not Avai lable cetirizin e 10 mg tablet TAKE 1 TABLET BY MOUTH EVERY DAY active Not Available Not Available No t Available oxybutyni n chloride ER 10 mg tablet,ex [...] Not Available benzonata te 200 mg capsule Take 1 capsule 3 times a day by oral route as needed for cough 2024 active per 06/04/24 patient case / ds Not Available Not Available Not Available Xanax [...] Not Available Not Available No t Available ondansetr on HCl 4 mg tablet [...] Available prednison e 5 mg tablet TAKE 1-3 TABLETS DAILY NEEDED active Not Available Not Available [...] TAKE 1 TO 2 TABLETS BY MOUTH WITH OTC TYLENOL 3 TIMES A DAY FOR PAIN CONTROL active Not Available Not [...] completed Not Available Not Available Not Available cefadroxi l 500 mg capsule TAKE 1 CAPSULE BY MOUTH EVERY 12 HOURS active Not Available Not Available No t Available meloxicam 7.5 mg tablet Take 1 [...] mg tablet TAKE 1 TABLET BY MOUTH EVERYDAY AT BEDTIME active Not Available Not Available No t Available prednisol one acetate 1 % eye drops,sanjuana [...] injectio n route. 08/14 completed [facility]: [id number] 20 Not Available Not Available Not Available amitripty [...] release TAKE 1 TABLET BY MOUTH EVERY 12 HOURS active Not Available Not Available No t Available halobetas ol propionat e 0.05 % topical cream active Not Available Not Available Not Available diclofena c sodium 50 mg tablet,de layed release Take 1 tablet twice a day by oral route. active Not Available Not Available No t Available furosemid e 20 mg tablet TAKE 1 TABLET BY MOUTH [...] DAY FOR A TOTAL OF 6 DAYS active Not Available Not Available No t Available albuterol sulfate HFA 90 mcg/actua tion [...] 1 TABLET BY MOUTH TWICE A DAY FOR 7 DAYS active Not Available Not Available No t Available amoxicill in 500 mg-potass ium clavulana te 125 mg tablet TAKE 1 TABLET BY MOUTH TWICE DAILY 10/15 completed Not Available Not Available Not Available neomycin- polymyxin -hydrocor t 3.5 mg-10,000 unit/mL-1 % ear drops,sanjuana p INSTILL 2 DROPS INTO BOTH EARS 4 TIMES A DAY active Not Available Not Available No t Available Vitamin D3 25 mcg (1,000 unit) [...] ntoin monohydra te/macroc rystals 100 mg capsule Take 1 capsule twice a day by oral route active Not Available Not Available No t Available duloxetin e 30 mg capsule,d elayed release TAKE 1 CAPSULE BY MOUTH EVERY DAY active Not Available Not Available No t Available duloxetin e 60 mg capsule,d elayed [...] by the provider 01/07 completed [facility]: [id number] 08-27 Not Available Not [...] n route. 07/13 completed [facility] 12052-41 06-11 Not Available Not Available Not Available [...] 0.25 mg/0.5 mL subcutane ous pen injector [id number] 11/05 completed Not Available Not Available [...] Updated DateTime 4 162.56 cm 21.5 kg/m2 65180.0 5 g 97.6 [degF] 90 /min 98 % 98 % 126 mm[Hg] 70 mm[Hg] Toya Goel CMA [place] [facility] 4 15:20:37 Date Recorded Body height Body mass index (BMI) Body weight Body temperature Heart rate Oxygen saturation Oxygen saturation in Arterial blood by Pulse oximetry Systolic blood pressure Diastolic blood pressure Provider Name and Address Organization Details Last Updated DateTime 4 162.56 cm 21.8 kg/m2 89558.2 3 g 97.2 [degF] 97 /min 98 % 98 % 160 mm[Hg] 86 mm[Hg] Marivel lea JENNIFER [employer] [facility] [employer] 4 12:03:52 Date Recorded Body height Body mass index (BMI) Body weight Heart rate Respiratory rate Oxygen saturation Oxygen saturation in Arterial blood by Pulse oximetry Systolic blood pressure Diastolic blood pressure Provider Name and Address Organization Details Last Updated DateTime 4 162.56 cm 21.8 kg/m2 24408.2 3 g 96 /min 14 /min 98 % 98 % 124 mm[Hg] 80 mm[Hg] Heidi Weber [facility] [employer] 4 15:48:13 Date Recorded Body height Body mass index (BMI) Body weight Heart rate Oxygen saturation Oxygen saturation in Arterial blood by Pulse oximetry Systolic blood pressure Diastolic blood pressure Provider Name and Address Organization Details Last Updated DateTime 4 162.56 cm 21.6 kg/m2 96222.6 4 g 105 /min 96 % 96 % 144 mm[Hg] 80 mm[Hg] Marivel Crisostomo venu Colleen [employer] [facility] [employer] 4 14:39:31 Date Recorded Body height Body mass index (BMI) Body weight Body temperature Heart rate Oxygen saturation Oxygen saturation in Arterial blood by Pulse oximetry Systolic blood pressure Diastolic blood pressure Provider Name and Address Organization Details Last Updated DateTime 5 162.56 cm 24.2 kg/m2 36995.5 2 g 97.6 [degF] 90 /min 98 % 98 % 156 mm[Hg] 84 mm[Hg] Marivel lea Colleen [facility] [employer] 5 11:10:47 Social History Question Answer Notes LastModified by Organization Details LastModified Time Tobacco Smoking Status Former Smoker quit 7 yrs ago Not Available [employer] 05/11/2022 01:03:53 Do You Have An Advance Directive? No [id number] Information not available 05/11/2022 What Is Your Level Of Alcohol Consumption? None [id number].0301 [id number] Information not available 05/11/2022 Are You Blind Or Do You Have Difficulty Seeing? No MIGRATION.0301 [id number] Information not available 05/11/2022 What Is Your Level Of Caffeine Consumption? Moderate MIGRATION.0301 [id number] Information not available 05/11/2022 How Much Tobacco Do You Chew? None MIGRATION.0301 [id number] Information not available 05/11/2022 In The 14 Days Before Symptom Onset, Have You Had Close Contact With A Laboratory-confi rmed COVID-19 While That Case Was Ill? No MIGRATION.0301 [id number] Information not available 05/11/2022 In The 14 Days Before Symptom Onset, Have You Had Close Contact With A Person Who Is Under Investigation For COVID-19 While That Person Was Ill? No MIGRATION.0301 [id number] Information not available 05/11/2022 Are You Deaf Or Do You Have Serious Difficulty Hearing? No MIGRATION.0301 [id number] Information not available 05/11/2022 What Type Of Diet Are You Following? REGULAR MIGRATION.0301 [id number] Information not available 05/11/2022 Which Illicit Or Recreational Drugs Have You Used? None MIGRATION.0301 [id number] Information not available 05/11/2022 Do You Or Have You Ever Used E-cigarettes Or Vape? 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 0 MIGRATION.0301 [id number] Information not available 05/11/2022 Have There Been Any Changes To Your Family Or Social Situation? No MIGRATION.0301 [id number] Information not available 05/11/2022 What Is The Fluoride Status Of Your Home? Unknown MIGRATION.0301 839579 Information not available 05/11/2022 When Did You Quit Smoking? 6-10yearssincelastc igarette MIGRATION.0301 114929 Information not available 05/11/2022 Are There Any Guns Present In Your Home? No MIGRATION.0301 390094 Information not available 05/11/2022 Do You Use Insect Repellent Routinely? No MIGRATION.0301 600415 Information not available 05/11/2022 Where Do You Live? [place]House MIGRATION.0301 [id number] Information not available 05/11/2022 Do You Have A Medical Power Of [employer] House Laborer? No MIGRATION.0301 [id number] Information not available 05/11/2022 What Was The Date Of Your Most Recent Tobacco Screening? 07/14/2023 [email or web address] Information not available 07/14/2023 Do You Have Any Pets? Yes MIGRATION.0301 080611 Information not available 05/11/2022 What Is Your Relationship Status? MIGRATION.0301 901502 Information not available 05/11/2022 Do You Use Your Seat Belt Or Car Seat Routinely? Yes MIGRATION.0301 299708 Information not available 05/11/2022 Do You Have Smoke And Carbon Monoxide Detectors In Your Home? Yes MIGRATION.0301 047604 Information not available 05/11/2022 Do You Use Any Illicit Or Recreational Drugs? No MIGRATION.0301 981485 Information not available 05/11/2022 Do You Use Sunscreen Routinely? No MIGRATION.0301 968093 Information not available 05/11/2022 How Many Years Have You Smoked Tobacco? 48 MIGRATION.0301 869864 Information not available 05/11/2022 Have You Recently Traveled Abroad? No MIGRATION.0301 814114 Information not available 05/11/2022 Do You Have Any Dietary Restrictions? No MIGRATION.0301 419646 Information not available 05/11/2022 Do You Or Have You Ever Used Any Other Forms Of Tobacco Or Nicotine? No MIGRATION.0301 857786 Information not available 05/11/2022 Sex: Female Functional Status Question Answer Note LastModified by Organizat ion Details LastModified Time Do you have difficulty walking or climbing stairs? Yes due to knees MIGRATION.631908 1094 Information not available 05/11/2022 Do you have transportation difficulties? No MIGRATION.205866 8333 Information not available 05/11/2022 Are you able to walk? YESWOREST MIGRATION.622035 1762 Information not available 05/11/2022 Do you have difficulty doing errands alone? No MIGRATION.926798 9259 Information not available 05/11/2022 Are you able to care for yourself? Yes MIGRATION.050206 4043 Information not available 05/11/2022 Do you have difficulty dressing or bathing? No MIGRATION.428460 3644 Information not available 05/11/2022 What is your exercise level? Occasional MIGRATION.349924 6804 Information not available 05/11/2022 Mental Status Question Answer Note LastModified by Organizat ion Details LastModified Time Do you have difficulty concentrating, remembering or making decisions? No MIGRATION.173072380 6 Information not available 05/11/2022 Family History Relationship Description Onset Age of this Age Resolved Age Notes LastModified by Organization Details LastModified Time Daughter Heart disease MIGRATION.459 [id number] Not available 05/11/2022 01:06:08 Daughter Malignant tumor of cervix MIGRATION.228 [id number] Not available 05/11/2022 01:06:08 Daughter Cerebrovascu lar accident MIGRATION.703 2328346 Not available 05/11/2022 01:06:08 Unspecified Relation Fibromyalgia MIGRATION.03 0 6801607 Not available 05/11/2022 01:06:09 Sister Rheumatoid arthritis MIGRATION.561 8314501 Not available 05/11/2022 01:06:09 Sister Malignant tumor of lung MIGRATION.858 6248685 Not available 05/11/2022 01:06:09 Mother Neuropathy MIGRATION.943 0432252 Not available 05/11/2022 01:06:09 Sister Arthritis Not [...] HAVE YOU BEEN HOSPITALIZED OR SEEN IN [facility] ER IN THE PAST YEAR ? [...] virus, trivalent, preservative 8 completed Not Available [facility] 05/11/2022 01:30:00 Influenza, split virus, trivalent, preservative 0 completed Not Available [facility] 05/11/2022 01:30:01 Td (adult), 2 Lf tetanus toxoid, preservative free, adsorbed 4 completed Lamine Cedeño MD [address] [place] [address], [place], [address], [facility] [employer] 11/16/2023 17:02:20 Pneumococcal conjugate PCV20, polysaccharide GGU624 conjugate, adjuvant, PF 4 completed TERE Carrillo, KERLINE - [facility] [employer] [facility] 01/23/2024 17:02:44 Past Encounters Encounter ID Performer Location Encounter Start Date Encounter Closed Date Diagnosis/Indication Diagnosis SNOMED-CT Code Diagnosis ICD10 Code Diagnosis Note [id number] _JOAQUINA_M IGRATION_ DEFAULT_1 _1 , 05/21/2020 00:00:00 05/21/2020 15:16:39 [id number] [facility] [address] [facility] [place] [address] 06/15/2020 00:00:00 06/15/2020 15:26:53 [id number] [facility] [place] [address] [facility] [address] [place], [place] [address] [place] [address] 06/22/2020 00:00:00 06/22/2020 13:19:37 [id number] [facility] [address] [address] 08/20/2020 00:00:00 08/23/2020 16:37:00 [id number] [facility] [place] [address] [facility] [address] [place] [address] 08/24/2020 00:00:00 08/24/2020 16:46:40 [id number] _JOAQUINA_[place] IGRATION_ DEFAULT_1 _1 , 09/03/2020 00:00:00 09/03/2020 16:37:17 [id number] [facility] [address] [address] 09/17/2020 00:00:00 09/17/2020 10:42:29 [id number] [facility] [place] [address] [facility] [address] [address] 09/21/2020 00:00:00 10/22/2020 11:11:56 [id number] [facility] [address] [address] 10/08/2020 00:00:00 10/08/2020 14:56:02 [id number] [facility] [address], [address] [address] 10/12/2020 00:00:00 10/12/2020 15:32:32 [id number] _ATHENA_M IGRATION_ DEFAULT_1 _1 , 11/05/2020 00:00:00 11/05/2020 18:35:57 [id number] [facility] [place] [address] [place] [address] 11/10/2020 00:00:00 11/10/2020 15:29:21 [id number] [facility] [place] [address] [place] [address] 11/26/2020 00:00:00 11/26/2020 14:06:30 [id number] [facility] [place] [address] [place] [address] 12/03/2020 00:00:00 12/03/2020 14:28:50 [id number] [facility] [place] [address] [facility] [place] [address] 12/22/2020 00:00:00 12/22/2020 17:04:45 [id number] [facility] [place] [address] [place] [address] 01/07/2021 00:00:00 01/07/2021 10:32:37 [id number] _ATHENA_M IGRATION_ DEFAULT_1 _1 , 01/28/2021 00:00:00 01/28/2021 15:22:38 [id number] [facility] Internal Med [facility] [address] [address] 02/08/2021 00:00:00 02/08/2021 15:18:13 [id number] [facility] [address] [address] 05/24/2021 00:00:00 05/24/2021 17:02:30 [id number] _ATHENA_M IGRATION_ DEFAULT_1 _1 , 05/27/2021 00:00:00 05/27/2021 16:11:35 [id number] _ATHENA_M IGRATION_ DEFAULT_1 _1 , 09/02/2021 00:00:00 09/02/2021 15:49:54 [id number] [facility] Internal Med [facility] [address] [address] 09/20/2021 00:00:00 09/20/2021 16:34:25 [id number] [facility] [place] [address] [place] [address] 12/14/2021 00:00:00 12/15/2021 18:29:11 [id number] [facility] Internal Med [facility] [address] [address] 01/17/2022 00:00:00 01/17/2022 16:40:29 [id number] [facility] [address] [facility] [place] [address] 03/15/2022 00:00:00 03/15/2022 16:00:29 [id number] [facility] [place] [address] [place] [address] 04/18/2022 00:00:00 04/18/2022 11:32:03 [id number] Kolton Gutierrez MD [facility] [place] [address] [place] [address] 05/26/2022 14:02:44 05/26/2022 15:15:01 Pain of bilateral knee joints 3026550455 64489 M25.561 M25.562 Osteoarthr itis of right knee joint 8050894080 15835 M17.11 Osteoarthr itis of left knee joint 5215032301 05630 M17.12 Swelling of lower leg 44 5047995 R22.42 [id number] [facility] [place] [address] [place] [address] 06/30/2022 14:32:50 06/30/2022 15:27:14 Hypothyroidism 53426522 E03.9 TSH and FT4 in range- continue on synthroid 75 mcg daily along with T3 5 mcg once daily. She was reminded to take her synthroid on empty stomach with glass of water and wait one hour to eat or have her coffee in morning and up to 4 hours if ever taking any heartburn or reflux medication s to help optimize absorption . Discussed paleo like diet with restrictio n of GMOs to help with energy and to optimize absorption of vitamins and minerals and reduce inflammati on. Prediabetes 909660738 R7 3.03 a1c of 5.3% in ideal range however she has gained over 10 pounds on low dose ozempic- she has no further GI upset or nausea when taking her ozempic- will uptitrate ozempic to 0.5 mg once weekly as she is waiting on patient assistance - 1 month sample provided. Focal motor weakness 699 977324 R53.1 Send for MRI brain- she has loss of urinary function and worsened lower and upper ext weakness/m uscle pain. She has MS in her daughter. This is acute in nature and worsened in the past 2 months. Abnormal u terine bleeding 5716841467 9100 N93.9 Send for transvagin al u/s- she was encouraged to follow up with her gynecologi st for pap smear. Spent up to 26 minutes preparing to see the patient (eg, review of tests), obtaining and/or reviewing separately obtained history, performing a medically appropriat e examinatio n and evaluation , counseling and educating the patient, ordering medication s, tests, along with documentin g clinical informatio n in the electronic health record, independen tly interpreti ng results and communicat ing results to the patient. RTC in 4 months. Patient was provided a handwritte n lab order which contains our fax number. If she chooses to go outside of the [facility] system to obtain labwork she was advised to provide our fax number and my informatio n to the lab she will be obtaining labwork from in order to have her labs properly forwarded over for me to review so there is no loss of follow up due to use of outside network. She was also advised to contact our clinic informing us that she has completed her labwork so we are aware we will need to reach out to the appropriat e laboratory to request her results be forwarded to us so I might have the ability to review and make further medical decision making in her case. She voiced understand ing. [id number] LORIE Villanueva [place] [address] 07/12/2022 10:11:40 07/12/2022 10:46:45 Osteoarthritis of right knee joint 2326017268 70521 M17.11 Osteoarthr itis of left knee joint 5483277605 65162 M17.12 Swelling of lower leg 44 6835918 R22.42 Pain of bi lateral knee joints 2069567412 64279 M25.561 M25.562 Effusion o f joint of left knee 6946856091 29634 M25.462 [id number] LORIE Villanueva [facility] [address] 08/09/2022 10:37:47 08/09/2022 11:07:40 Osteoarthritis of left knee joint 9145258831 10154 M17.12 Osteoarthr itis of right knee joint 2473391331 76885 M17.11 Pain of bi lateral knee joints 1636582576 05380 M25.561 M25.562 [id number] LORIE Villanueva [place] [address] 08/16/2022 09:33:39 08/16/2022 11:10:18 Osteoarthritis of left knee joint 7446562482 69809 M17.12 Osteoarthr itis of right knee joint 8164118471 89754 M17.11 Pain of bi lateral knee joints 9437757371 56158 M25.561 M25.562 Bilateral wrist pain 401 2721309 2947050 M25.531 M25.532 Bilateral carpal tunnel syndrome 8559609790 1740528 G56.03 Rheumatoid arthritis 698 94022 M06.9 Pain of bi lateral hands 4401795597 0870618 M79.641 M79.642 [id number] Kolton Gutierrez MD [facility] [address] [place] [address] 11/07/2022 09:42:14 11/07/2022 10:14:38 Osteoarthritis of left knee joint 3985394709 61030 M17.12 Osteoarthr itis of right knee joint 3053832320 13542 M17.11 Pain of bi lateral knee joints 8997676147 01313 M25.561 M25.241 [id number] Ana Paula Urban MD [facility] [address] [place] [address] 12/01/2022 14:30:11 12/01/2022 15:31:07 Prediabetes 567019373 R73.03 a1c of 5.9% in range- continue on lower dose ozempic 0.5 mg once weekly. Discussed carb counting and how to read food labels. Recommende d patient to utilize the diabetesfo Augmentra.Experifun from the ADA website to help with food preparatio n as this presents ideal carb content per meal so this will make carb counting much easier for patient. Recommende d she incorporat e natural insulin aprn s such as pears, apples, cinnamon, [place] and sweet potatoes to help mobilize her endogenous insulin. Recommende d up to 150 minutes of moderate level activity/e xercise weekly. Hypothyroidism 83626625 E03.9 TSH and FT4 in range- continue on synthroid 75 mcg daily along with T3 5 mcg once daily. She was reminded to take her synthroid on empty stomach with glass of water and wait one hour to eat or have her coffee in morning and up to 4 hours if ever taking any heartburn or reflux medication s to help optimize absorption . Discussed paleo like diet with restrictio n of GMOs to help with energy and to optimize absorption of vitamins and minerals and reduce inflammati on. Postmenopa usal osteoporosis 405131470 M81.0 refer to endocrinol ogy for secondary workup and to discuss treatment options due to my resignatio n. Spent up to 25 minutes preparing to see the patient (eg, review of tests), obtaining and/or reviewing separately obtained history, performing a medically appropriat e examinatio n and evaluation , counseling and educating the patient, ordering medication s, tests, along with documentin g clinical informatio n in the electronic health record, independen tly interpreti ng results and communicat ing results to the patient. Patient can be followed by PCP - she/he is aware of my resignatio n and last day of December 23. If needed his/her PCP can refer patient to another endocrinol ogist in the area. All questions /concerns answered and refills necessary at visit today. [id number] LORIE Villanueva [facility] [place] [address] [place] [address] 01/19/2023 10:26:42 01/19/2023 10:56:20 Osteoarthritis of left knee joint 9333142388 57038 M17.12 Osteoarthr itis of right knee joint 1451806360 08586 M17.11 Pain of bi lateral knee joints 7271618530 89579 M25.561 M25.342 [id number] LORIE Villanueva [facility] [place] [address] [place] [address] 04/11/2023 14:02:11 04/11/2023 14:45:01 Osteoarthritis of left knee joint 6011262909 65307 M17.12 Osteoarthr itis of right knee joint 9419148653 34306 M17.11 Pain of bi lateral knee joints 0000397762 86088 M25.561 M25.913 [id number] LORIE Villanueva [facility] [place] [address] [place] [address] 07/14/2023 12:08:06 07/18/2023 16:26:00 Pain of bilateral knee joints 2282127305 31803 M25.561 M25.562 Bilateral osteoarthritis of knees 5869057134 83314 M17.0 [id number] Lamine Cedeño MD [facility] [address] [place] [address] 08/15/2023 14:23:37 08/15/2023 15:19:53 Adult health examination 488643774 Z00.00 Colonoscop y-Mammogra m- DUE, orderedDex a- 07/2023FLU - NEVERPneum ovax- does not wantPrevna r 13- does not wantCOVID- NEVER Screening mammography 24 569297 Z12.31 Overactive urinary bladder 838485452 N32.81 will start meds Prediabetes 394536331 R7 3.03 watching diet Restless legs 78217690 G 25.81 on meds Iron defic iency anemia 67810594 D50.9 Bilateral osteoarthritis of knees 0483040412 23509 M17.0 seeing ortho Anxiety disorder 4648010 06 F41.9 Bilateral carpal tunnel syndrome 5610735139 9863332 G56.03 using brace Chronic ob structive pulmonary disease 51514251 J44.9 better with inhalers Hypothyroidism 85626494 E03.9 labs Nodule of lung 412869225 R91.1 seeing pulm Osteoporosis 02810359 M8 1.0 does not want meds [id number] Lamine Cedeño MD [facility] Internal Med [address] [address] 08/29/2023 09:41:26 08/29/2023 10:03:10 Pain of bilateral knee regions 9167469301 37706 M25.561 to see ortho Neuropathy 590306441 G62 .9 ^ gabapentin 300 mg am, noon, and 600 mg qhsshe has enough rx and does not need refill [id number] Kassy Gore NP [facility] Internal [address] [address] 09/01/2023 15:13:28 09/01/2023 15:37:39 Edema of lower extremity 574412401 R60.0 [id number] Lamine Cedeño MD [facility] Internal [address] [address] 09/19/2023 14:07:17 09/19/2023 15:04:03 Pain of bilateral knee regions 3550221377 17080 M25.561 to see ortho Neuropathy 954878446 G62 .9 on gabapentin Pulmonary embolism 11107 003 I26.99 on Eliquis, to be stopped in 2 months Anemia 921774562 D64.9 going to see hematology [id number] Lamine Cedeño MD [facility] Internal Med [address] [address] 10/16/2023 13:59:34 10/16/2023 15:53:39 Diarrhea 86168770 R19.7 likely related to abx Dehydration 69277775 E86 .0 she is keeping herself hydrated Pneumonia 810240545 J18. 9 treated Hyponatremia 80017837 E8 7.1 was 133 Vaginitis 08363512 N76.0 [id number] Lamnie Cedeño MD [facility] Med [facility] [address] [place] [address] 10/24/2023 14:19:21 10/24/2023 15:53:24 Chest wall pain 115629229 R07.89 could be referred pain from spine, advised to see her spine MDshe is already on pain meds and gabapentin [id number] Kd Gregorio DPM [facility] [place] [address] [facility] [place] [address] 11/14/2023 10:40:13 11/15/2023 11:32:43 Idiopathic peripheral neuropathy 18415334 G60.9 continue gabapentin per PCPrule out neuropathy with nerve conduction / EMGfollow- up testing- supportive shoe gear once testing positive Prediabetes 780185275 R7 3.03 continue diabetic control PCP recommenda tions5.7 a1c Muscle wea kness of limb 015998144 M62.81 dorsiflexi on right lower extremity Bunion 878788291 M21.61 9 right foot severereco mmend conservati ve offloading with wide supportive soft toe box style shoes Hammer toe 629772906 M20 .41 M20.42 right 2nd toe severe- right foot 2 through 5left foot 2 through 5as above [id number] Lamine Cedeño MD [facility] Med [facility] [address] [facility] [place] [address] 11/16/2023 15:15:02 11/16/2023 16:09:37 Chest wall pain 178770602 R07.89 to see another pain management Laceration of skin 82657 5004 T14.8XXA local caretetanu s shot [id number] Lamine Cedeño MD [facility] Internal Med [facility] [address] [place] [address] 12/06/2023 11:46:29 12/06/2023 12:37:06 Chest wall pain 983466196 R07.89 has appt with pain management she had CT chest last month and has appt with her pulm [id number] Kd Gregorio DPM [facility] [place] [address] [place] [address] 01/23/2024 15:14:18 03/08/2024 12:51:34 Idiopathic peripheral neuropathy 29449863 G60.9 continue gabapentin per PCPPositiv e EMGfollow- up with orthopedic recommenda tions- likely lumbar radiculopa thy Prediabetes 315720925 R7 3.03 continue diabetic control PCP recommenda tions5.7 a1c Muscle wea kness of limb 924917291 M62.81 dorsiflexi on right lower extremity Bunion 659551961 M21.61 9 right foot severereco mmend conservati ve offloading with wide supportive soft toe box style shoes Hammer toe 349770690 M20 .41 M20.42 right 2nd toe severe- right foot 2 through 5left foot 2 through 5as above [id number] Lamine Cedeño MD [facility] Internal Med [facility] [address] [place] [address] 02/19/2024 14:31:49 02/19/2024 15:26:50 Adult health examination 452348932 Z00.00 Colonoscop y- 12/29/2023 Mammogram- 01/01/2024 Dexa- 07/2023FLU - NEVERPneum ovax- does not wantPrevna r 20- 01/23/2024 COVID- NEVER Overactive urinary bladder 858370797 N32.81 on meds Prediabetes 362761454 R7 3.03 watching diet Restless legs 42841400 G 25.81 on meds Iron defic iency anemia 19846915 D50.9 need f/u with hematologi st Bilateral osteoarthritis of knees 3979480145 14284 M17.0 seeing ortho Anxiety disorder 3163313 06 F41.9 on meds and better Bilateral carpal tunnel syndrome 8543499429 1654347 G56.03 using brace Chronic ob structive pulmonary disease 65608395 J44.9 better with inhalers Hypothyroidism 36477969 E03.9 stable Nodule of lung 758148213 R91.1 seeing pulm Osteoporosis 40143330 M8 1.0 does not want meds Pneumonia 803508761 J18. 9 treated Chest wall pain 72086642 6 R07.89 has appt with pain management [id number] Lamine Cedeño MD [facility] [address] [place] [address] 05/02/2024 10:58:14 05/02/2024 11:24:49 Edema of lower extremity 826059245 R60.0 try Furosemide Acute righ t otitis media 735242291 H66.91 Health Concerns Section Related Observation LastModified by Organization Detai ls LastModified Time None Recorded Concern Status LastModified by Organization Details LastModified Time None Recorded Advance Directives Directive N: Payers Encounter Date Sequence Insurance Name Policy Number Policy Nicholas Covered Member ID Nicholas Member ID Guarantor Name 11/16/2023 1 [employer] (MEDICARE REPLACEMENT/AD VANTAGE - PPO) [id number] Alta Ansley Alicia [id number] Alta Ansley Bobrachel 11/16/2023 2 [place] MEDICARE REPLACEMENT PRIMARY) Alta Vargas [id number] Alta Bobrachel 12/06/2023 1 [employer] (MEDICARE REPLACEMENT/AD VANTAGE - PPO) [id number] Altagi Vargas [id number] Alta Vargas 12/06/2023 2 [place] OR MEDICARE REPLACEMENT PRIMARY) Alta Vargas [id number] Alta Ansley Alicia 01/23/2024 1 [facility] (MEDICARE REPLACEMENT/AD VANTAGE - PPO) [id number] Alta L Paulinoala [id number] Alta Vargas 01/23/2024 2 [place] OR MEDICARE REPLACEMENT PRIMARY) Alta Vargas [id number] Alta Ansley Alicia 02/19/2024 1 [facility] (MEDICARE REPLACEMENT/AD VANTAGE - PPO) [id number] Alta Ansley Vargas [id number] Alta Vargas 02/19/2024 2 [place] OR MEDICARE REPLACEMENT PRIMARY) Alta Vargas [id number] Alta Vargas 05/02/2024 1 [facility] (MEDICARE REPLACEMENT/AD VANTAGE - PPO) [id number] Alta Vargas [id number] Alta Vargas 05/02/2024 2 [place] WHEN MEDICARE OR MEDICARE REPLACEMENT PRIMARY) Alta Vargas [id number] Alta Vargas Notes Date Note Type Note Provider Name and Address Organization Details Recorded Time 11/16/2023 text/html She is here toda y [...] any she had CT chest done by pul, nodule size has gone down from 11mm to 1.2 mm but suspicious for cancer. she has appt with pulm in 2 months. she had PET in the past. Lamine Cedeño MD [address], [place], [address], [employer] 11/16/2023 17:03:23 12/06/2023 text/html Pt is here [...] management tomorrow Lamine Cedeño MD [address], [place], [address], [employer] 12/06/2023 12:36:45 01/23/2024 text/html . Patient is [...] lower back issues. Kd Gregorio, DPM [address], [place], [address], [place] [facility] 01/24/2024 17:40:13 02/19/2024 text/html Pt is a 67 y/o h ere for f/uwas in the hospital, record reviewedShe also was recently in [facility] for pneumonia. She C/o right [...] diet, was on ozempic from endo dr dylan MOODY- meds help, was having vomiting, had EGD,sees dr carlton Cedeño MD [address] [facility], [address], [place], [address], [employer] 02/19/2024 15:25:44 05/02/2024 text/html Pt is here today for bilateral ankle swelling.Left ankle is worse. States that its been like that X 1 monthShe has gained 15lbs. But also weighed with her coat onDenies any painno cp or sob right ear is clogged with some discomfort. Lamine Cedeño MD [address], [place], [address], [employer] 05/02/2024 11:30:51 OBGyn Episode No OBEpisode recorded.
--- OUTSIDE RECORDS SUMMARY | 2024-06-04 15:42 | XMS_ITS | Continuity of Care Document ---
Author Organization [facility] Address [address] [place] [address] Phone Care Team Providers Care Early Childhood Director Name Role Phone Nikko Graham MD Unavailable [...] Date Provider Providers Copied on Encounter [facility], [address], [place], [place], [address], tel:[phone] [facility] No Information Gladys El. [address], [place], [place], [id number], [place]. tel:[phone] Referring Provider: Ashok Tovar, [address], [place], [address]. tel:[phone] [facility], [address], [place], [place], [id number], tel:[phone] [facility] No Information Gladys El. [address], [place], [place], [address], [place]. tel:[phone] Referring Provider: Ashok Tovar, [address], [place], [address]. tel:[phone] [facility], [address], [place], [place], [id number], [place] tel:[phone] [facility] No Information Cruzito Saenz. [address], [place], [place], [address], [place]. tel:[phone] Referring Provider: [address], [place], [address]. tel:[phone] [facility], [address], [place], [place], [address], [place] tel:[phone] [facility] No Information López Ulrich. [address], [place], [place], [address], [place]. tel:[phone] Referring Provider: [address], [place], [address]. tel:[phone] [facility], [address], [place], [place], [address], tel:[phone] [facility] No Information Esperanzakianna Dany. [address] [place], [place], [address], . tel:[phone] Referring Provider: [address], [place], [address]. tel:[phone] [facility], [address] [place] [address], [id number], tel:[phone] [facility] No Information Benoit Glasgow. [address] [place], [place], [id number], . tel:[phone] Referring Provider: [address], [place], [address]. tel:[phone] [facility], [address] [place] [address], [id number], tel:[phone] [facility] No Information Cruzito Saenz. [address] [place], [place], [address], . tel:[phone] Referring Provider: [address], [place], [address]. tel:[phone] Family History Family Member Type Diagnosis Age At Onset No Information Payers Payer name Insurance type Covered constitution party ID Authoriza tileyda(s) [facility] [employer] PPO [id number] Social History Type Description Quantity Date Captured [...]
--- OUTSIDE RECORDS SUMMARY | 2024-06-04 15:42 | XMS_ITS | Encounter Summary ---
Author Organization [facility] Address [address] [place] [address] Care Team Providers Care Train Director Name Role Phone Christofer Merrill MD Primary Care Provider [phone] Taurus Gleason DC Unavailable Yvonne Rae MD Unavailable Encounter Details Date Type Department Care Team (Late st Contact Info) Description 12/13/2023 Lab Requisition [facility] [address] [place] [address] Fili Valentin MD [address] [address] Anemia, unspecified Social History Tobacco Use Types Packs/Day Years [...] Procedure Name Priority Date/Time Associated Diagnosis Comments CBC W/O DIFFERENTIAL STAT 12/13/2023 12:06 PM CDT Anemia, unspecified documented in this encounter Results * (ABNORMAL) CBC W/O DIFFERENTIAL (12/13/2023 12:06 PM CDT) WBC 14.7(H) 4.0 - 10.7 x10E9/L 12/13/2023 2:06 PM CDT [facility] RBC Count 4.13 3.90 - 5.20 x10E12/L 12/13/2023 2:06 PM CDT [facility] Hemoglobin 9.9(L) 11.9 - 15.8 g/dL 12/13/2023 2:06 PM CDT [facility] Hematocrit 33.3(L) 34.8 - 46.1 % 12/13/2023 2:06 PM CDT [facility] MCV 80.6 80.0 - 98.0 fL 12/13/2023 2:06 PM CDT [facility] MCH 24.0(L) 26.7 - 33.6 pg 12/13/2023 2:06 PM CDT [facility] MCHC 29.7(L) 31.7 - 36.3 g/dL 12/13/2023 2:06 PM CDT [facility] RDW-CV 17.3(H) 11.3 - 14.8 % 12/13/2023 2:06 PM CDT [facility] Platelet Count 403 150 - 420 x10E9/L 12/13/2023 2:06 PM CDT [facility] MPV 8.6 7.8 - 11.4 fL 12/13/2023 2:06 PM CDT [facility] Blood BLOOD SPECIMEN / Unknown 12/13/2023 12:06 PM CDT 12/13/2023 1:56 PM CDT Fili Valentin MD LAB - HEMATOLOGY ORD ERABLES [facility] [address] [place] [address] documented in this encounter Visit Diagnoses Diagnosis Anemia, unspecified documented in this encounter Care Teams Train Director Relationship Specialty Start Date End Date Christofer Merrill MD [address] [place], [place] [address] [address] PCP - General Internal Medicine 12/06/11 Taurus Gleason DC [address] [place] [address] Chiropractic 12/13/11 [place] [address] [place] [address] Rheumatology 08/22/17 documented as of this encounter
--- OUTSIDE RECORDS SUMMARY | 2024-06-04 15:43 | XMS_ITS | Encounter Summary ---
Author Organization [facility] Address [address] [place] [address] Care Team Providers Care Interior Specialist Name Role Phone Christofer Merrill MD Primary Care Provider Bro Cedeño MD Primary Care Provider [phone] Encounter Details Date Type Department Care Team (Late st Contact Info) Description 03/30/2022 Telephone [facility] Interventional Pulmonology [address] [place] [address] Ronn Montano MD [address] [place], [place] [id number] Social History Tobacco Use Types Packs/Day Years Used Date Smoking Tobacco: Former Cigarettes Vaping Smokeless Tobacco: Current Comments:patient states she vapes Alcohol Use Standard Drinks/Week Comments Not Currently 0 (1 standard drink = 0.6 oz pur e alcohol) AUDIT-C Answer Date Recorded Q1: How often do you have a drink containing alc ohol? 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
--- OUTSIDE RECORDS SUMMARY | 2024-06-04 15:43 | XMS_ITS | Encounter Summary ---
Author Organization [facility] Address [address] [place] [address] Care Team Providers Care Cement Contractor Name Role Phone Bro Cedeño MD Primary Care Provider [phone] Reason for Referral * Consultation (Routine) - Authorized Specialty Diagnoses / Procedures Referred By Breanna white Referred To Contact [facility] Diagnoses Age-related osteoporosis without current pathological fracture Thoracic compression fracture, closed, initial encounter (HCC) Cervical radiculopathy Thoracic radiculopathy History of rheumatoid arthritis Vesna Beckford MD [address] [place] [address] Phone: tel: fax: [facility] (All Locations) Referral ID Status Reason Start Date Expiration Date Visits Requested Visits Authorized [id number] Authorized Specialty Services Required 01/22/2026 999 999 Question Answer Please select the performing region: [facility] (All Locations) [167] # of visits: [address] Vesna Beckford 12/07/2023 Chronic compression fractures: L1, L2, T9, T10 Osteoporosis Atrophy thenar eminence Rheumatoid arthritis I believe the biggest problem at this point is the patient has atrophy of the thenar eminence, has reflex changes and this is highly suspicious for cervical myelopathy. I am going to get a MRI scan of the cervical spine. The patient has multiple compression fractures on her CTA I think acuity should be evaluated with a thoracic MRI. I personally did review the CTA I personally did review the lumbar MRI. Personal review of the imaging is as follows: MRI of the lumbar spine date August 30, 2023 L1 kyphoplasty previously there is L1 retropulsion noted. This is adjacent to the cord. There is an L2 chronic compression fracture. L3-4 moderate spinal stenosis. L4-5 [id number] spinal stenosis bilateral facet synovitis. CT scan shows chronic appearing compression fracture T9 with up to 90% height loss mild chronic T10 compression fracture 30% height loss chronic fracture L1. Chronic fracture L2.I am going to refer the patient to [facility] to get her osteoporosis treated.The patient needs to find a new underwear hemmer as hers recently .I explained to the patient the biggest concern at this time is the osteoporosis which is not being aggressively treated and she has severe osteoporosis based on the number of fractures and my concern of cervical myelopathy. Opioid therapy is not recommended for either of these cases. But we will begin an evaluation regarding opioid treatment in case we do find it to be appropriate in the future. The most important thing is treating the underlying disease process at this time. Encounter Details Date Type Department Care Team (Late st Contact Info) Description 12/24/2023 Community Orders [facility] EpicCare Link Vesna Beckford MD [address] [place] [address] Age-related osteoporosis without current pathological fracture (Primary Dx); Thoracic compression fracture, closed, initial encounter (HCC); Cervical radiculopathy; Thoracic radiculopathy; History of rheumatoid arthritis Social History Tobacco Use Types Packs/Day Years Used Date Smoking Tobacco: Former Cigarettes Vaping Smokeless Tobacco: Never Comments:patient states she vapes Alcohol Use Standard Drinks/Week Comments Not Currently 0 (1 standard drink = 0.6 oz pur e alcohol) AUDIT-C Answer Date Recorded Q1: How often do you have a drink containing alcohol? Never 04/05/2022 Q2: How many drinks containi ng alcohol do you have on a typical day when you are drinking? Patient does not drink Q3: How often do you have si x or more drinks on one occasion? 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 Gender Identity Not on file Sexual Orientation Not on file documented as of this encounter Plan of Treatment Scheduled Referrals Name Type Priority Associated Diagnoses Orde r Schedule Ambulatory referral to [facility] Outpatient Referral Routine Age-related osteoporosis without current pathological fracture Thoracic compression fracture, closed, initial encounter (HCC) Cervical radiculopathy Thoracic radiculopathy History of rheumatoid arthritis Expected: 01/07/2024 (Approximate), Expires: 12/23/2024 documented as of this encounter Visit Diagnoses Diagnosis Age-related osteoporosis without current pathological fracture- Primary Thoracic compression fracture, closed, initial encounter (HCC) Cervical radiculopathy Brachial neuritis or radiculitis nos Thoracic radiculopathy Thoracic or lumbosacral neuritis or radiculitis, unspecified History of rheumatoid arthritis Personal history of arthritis documented in this encounter Care Teams Cement Contractor Relationship Specialty Start Date End Date Bro Cedeño MD [address] [place] [address] PCP - General Internal Medicine 02/05/24 documented as of this encounter
--- OUTSIDE RECORDS SUMMARY | 2024-06-04 15:43 | XMS_ITS | Patient Health Record ---
Author Organization [facility] Address [address] [facility] [address] [place] [address] Care Team Providers Care Boiler Engineer Name Role Phone Eliotsharif Bro Primary Care Provider Ashok Angeles Unavailable [phone] Nitza English Unavailable [phone] ALLERGIES No Known Allergies RESULTS Component Value Reference Range Notes MRI : Lumbar without contras t Reviewed date:08/22/2023 08:04:58 AM Interpretation:completed Performing Lab: Notes/Report: completed X ray : Lumbar Spine 3 views , AP, Lateral, Spot Reviewed date:08/21/2023 04:38:02 PM Interpretation:325 Performing Lab: Notes/Report: 325 X ray : Thoracic Spine 3 vie ws, AP, Lateral, Swimmers Reviewed date:04/03/2024 01:20:27 PM Interpretation:115 Performing Lab: Notes/Report: 115 X ray : Lumbar Spine 3 views , AP, Lateral, Spot Reviewed date:04/03/2024 01:20:20 PM Interpretation:104 Performing Lab: Notes/Report: 104 MRI Thoracic spine down to L 2 Reviewed date:04/03/2024 02:01:46 PM Interpretation:completed Performing Lab: Notes/Report: completed MRI : Thoracic without Contr ast Reviewed date:04/23/2024 01:55:25 PM Interpretation:completed Performing Lab: Notes/Report: completed X ray : Thoracic Spine 3 vie ws, AP, Lateral, Swimmers Reviewed date:04/26/2024 09:41:24 AM Interpretation:751 Performing Lab: Notes/Report: 751 X ray : Lumbar Spine 3 views , AP, Lateral, Spot Reviewed date:04/26/2024 09:41:39 AM Interpretation:751 Performing Lab: Notes/Report: 751 REASON FOR REFERRAL Reason Lumbar RFA Diagnosis 1 Spondylolisthesis of lumbar region (M43.16) Referral Organization [facility] Referring Provider First Name Ashok Referring Provider Last Name Guy Referring Provider Speciality Orthopedic Surgery Referred Provider Specialty Pain Medicin e Referral Priority Routine MEDICATIONS Medication SIG (Take, Route, Fr equency, Duration) Notes Start Date End Date Status Morphine Sulfate Unk nown Omeprazole Unknown traMADol HCl Unknown Medrol (Ambrosio) 4 MG as directed on the p ackage Orally as directed on the package 05/03/2024 Unknown Synthroid Unknown Medrol (Ambrosio) as directed Orally t nasir as directed for 6 days 04/03/2023 Not-Taking Requip Unknown Vitamin D Unknown Tylenol Unknown Centrum Silver Unkno wn Vitamin C Unknown Valium 5 MG 1 tablet as needed O rally 1 tablet 1 hour before procedure. May repeat in 30 minutes if needed 03/22/2023 Not-Taking Ibandronate Sodium U nknown predniSONE 10 MG 1 tablet Orally every 8 hours 12/2023 Not-Taking predniSONE Unknown Ferrous Sulfate Unkn own SOCIAL HISTORY Tobacco Use: Social History Observation Description Date Details (start date - stop date) Former Smoker NA - NA Sex Assigned At : Social History Observation Description Sex Assigned At Unknown Tobacco Use/Smoking Question Answer Notes Are you a former smoker PROBLEMS Problem Type ICD Code Onset Dates Problem Status W/U Status Risk SNOMED Code Notes Problem Cervical spondylolysis (M43.02) Active confirmed Spondylolysis o f cervical spine (959201930) Problem Spondylolisthesis of lumbar region (M43.16) Active confirmed Acquired spondylolisthesis (754170813) Problem Compression fracture of L1 lumbar vertebra (S32.010A) Active confirmed Problem Age-related osteoporosis with current pathological fracture of vertebra (M80.08XA) Active confirmed Patholog ical fracture of vertebra (572313744) Problem Low back pain of multiple sites of spine with sciatica (M54.40) Active confirmed Sciatica (21655007) Problem Spondylolisthesis (M43.10) Active confirmed Spondylolisthes is (681930805) Problem Compression fracture of body of thoracic vertebra (M48.54XA) Active confirmed Compression fracture of thoracic vertebra (disorder) (4439621316950) Problem Age-related osteoporosis with current pathological fracture, vertebra(e), initial encounter for fracture (M80.08XA) Active confirmed Pathological fracture of vertebra (306077784) VITAL SIGNS Height 64 in 05/30/2024 Weight 125 lbs 05/30/2024 BMI 21.45 kg/m2 05/30/2024 PROCEDURES Procedure Date Ordered Date Performed Result Body Sit e Lumbar Epidural Steroid Injection 04/23/2024 04/23/2024 N/ A Kyphoplasty, Thoracic 04/10/2024 04/10/2024 completed Kyphoplasty, Thoracic 05/06/2024 05/08/2024 completed Lumbar Epidural Steroid Injection 05/16/2024 05/16/2024 N/ A Encounters Encounter Location Date Provider Diagnosis [facility], [address] [address] 08/21/2023 Nitza English Spondylolisthesis of lumbar region M43.16 and Other low back pain M54.59 [facility], [address] [address] 03/19/2024 Nitza English Other low back pain M54.59 [facility], [address] [address] 03/21/2024 Nitza English [facility], [address] [address] 04/03/2024 Nitza English Low back pain of multiple sites of spine with sciatica M54.40 ; Thoracic back pain M54.6 and Compression fracture of thoracic vertebra S22.000A [facility], [address] [address] 04/23/2024 Ashok Tovar Compression fracture of body of thoracic vertebra M48.54XA ; Thoracic back pain M54.6 and Other low back pain M54.59 [facility], [address] [address] 05/30/2024 Nitza English Neck pain M54.2 [facility], [address] [address] 08/08/2023 Ashok Rutz [facility] [address] [place] [address] [place] [address] 08/28/2023 Ashok Rutz [facility] [address] [place] [address] [place] [address] 09/01/2023 Ashok Rutz [facility] [address] [place] [address] [place] [address] 09/04/2023 Ashok Rutz [facility] [address] [place] [address] [place] [address] 10/24/2023 Ashok Rutz [facility] [address] [place] [address] [place] [phone] 03/07/2024 Ashok Rutz [facility] [address] [place] [address] [place] [phone] 03/07/2024 Ashok Rutz [facility] [address] [place] [address] [place] [phone] 04/10/2024 Ashok Rutz Age-related osteoporosis with current pathological fracture, vertebra(e), initial encounter for fracture M80.08XA [facility] [address] [place] [address] [place] [phone] 04/10/2024 Ashok Rutz [facility] [address] [place] [address] [place] [address] 04/18/2024 Ashok Rutz [facility] [address] [place] [address] [place] [phone] 04/22/2024 Ashok Rutz [facility] [address] [place] [address] [place] [phone] 04/23/2024 Ashok Rutz [facility] [address] [place] [address] [place] [phone] 04/23/2024 Ashok Rutz [facility] [address] [place] [address] [place] [phone] 04/29/2024 Ashok Rutz [facility] [address] [place] [address] [place] [phone] 05/03/2024 Ashok Rutz [facility] [address] [place] [address] [place] [address] 05/06/2024 Ashok Tovar [facility] [address] [place] [address] [place] [phone] 05/06/2024 Ashok Tovar Compression fracture of thoracic vertebra S22.000A [facility] [address] [facility] [address] [address] 05/07/2024 Ashok Tovar [facility] [address] [place] [address] [place] [phone] 05/15/2024 Ashokbeto Tovar [facility] [address] [place] [address] [place] [phone] 05/16/2024 Ashok Tovar Lumbar radiculopathy M54.16 [facility] [address] [facility] [address] 05/16/2024 Ashok Tovar [facility], [address] [facility] [address] [address] 05/23/2024 Ashok Tovar [facility] [address] [facility] [address] [address] 05/29/2024 Ashok Tovar ASSESSMENTS Encounter Date Diagnosis Assessment Notes Treatment Notes Treatment Clinical Notes 08/21/2023 Spondylolisthesis of lumbar region (ICD-10 - M43.16) 04/03/2024 Low back pain of multiple sites of spine with sciatica (ICD-10 - M54.40) 04/03/2024 Thoracic back pain (ICD-10 - M54.6) 04/23/2024 Compression fracture of body of thoracic vertebra (ICD-10 - M48.54XA) 04/23/2024 Thoracic back pain (ICD-10 - M54.6) 08/21/2023 Other low back pain (ICD-10 - M54.59) 03/19/2024 Other low back pain (ICD-10 - M54.59) 04/03/2024 Compression fracture of thoracic vertebra (ICD-10 - S22.000A) 04/23/2024 Other low back pain (ICD-10 - M54.59) 05/30/2024 Neck pain (ICD-10 - M54.2) 04/10/2024 Age-related osteopor osis with current pathological fracture, vertebra(e), initial encounter for fracture (ICD-10 - M80.08XA) 05/06/2024 Compression fracture of thoracic vertebra (ICD-10 - S22.000A) 05/16/2024 Lumbar radiculopathy (ICD-10 - M54.16) PLAN OF TREATMENT No Information Insurance Providers Payer Name Payer Address Payer Phone Subscriber Number Group Number Insured Name Patient Relationship to Insured Coverage Start Date Coverage End Date [facility] Medicare Advantage PPO [address] [address] [place] [address] [id number] Alta Vargas Self - patient is the insured MEDICAL (GENERAL) HISTORY Medical History History ICD Code COPD Rheumatoid arthritis Lung cancer Fibromyalgia IBS Surgical History Surgery Date(Month/Year) Cholecystectomy Tubal ligation Bunionectomy LEEP Procedure D&C Kyphoplasty 03/30/23 Hospitalization History Reason Date(Month/Year) As per above.
--- OUTSIDE RECORDS SUMMARY | 2024-06-04 15:43 | XMS_ITS ---
Author Organization [facility] Address [address] [place] [id number] Care Team Providers Care Account Information Clerk Name Role Phone Bro Cedeño MD Primary Care Provider [phone] Active Problems Problem Noted Date Diagnosed Date History of vertebral compression fracture 2023 Overview (02/05/2024): T8, T9, L2 History of rheumatoid arthritis 02/05/2024 Malignant neoplasm of lower lobe of left lung Cancer Staging:Clinical stage from 01/10/2023:Stage IA2(cT1b, cN0, cM0) - Signed by Yaima Wolf NP on 01/11/2023 Trigger finger 01/10/2023 Pure hypercholesterolemia 01/10/2023 Restless legs 01/10/2023 Urethral caruncle 01/10/2023 Urinary incontinence 01/10/2023 Constipation 01/10/2023 Anxiety disorder 01/10/2023 Brachial neuritis 01/10/2023 Hand joint pain 01/10/2023 Lumbar sprain 01/10/2023 Age-related osteoporosis wit hout current pathological fracture 12/01/2022 Bilateral carpal tunnel syndrome 08/16/2022 Abnormal magnetic resonance imaging of head 11/2022 Abnormal uterine bleeding 06/30/2022 Focal motor deficit 06/30/2022 Iron deficiency anemia 05/18/2022 Osteoarthritis of right knee 04/17/2022 Swelling of lower leg 04/17/2022 Arthralgia of both knees 04/17/2022 Anemia 03/14/2022 Prediabetes 12/14/2021 Palpitations 11/18/2021 Abnormal EKG 11/18/2021 Muscle pain 09/30/2021 COVID-19 07/05/2021 Paresthesia of upper limb 05/24/2021 Pain in both hands 11/10/2020 Chronic obstructive pulmonary disease 08/12/2019 Gastroesophageal reflux disease 10/11/2018 Assessment & Plan (11/27/2018 3:03 PM CDT): Stop ranitidine and start pantoprazole 40mg daily. Advised to follow GERD diet. Assessment & Plan (10/11/2018 3:44 PM CDT): Will have her started taking ranitidine 300mg QD. Discussed GERD diet and importance of following this. It sounds as if the patient has an unhealthy, poor diet. Nausea without vomiting 10/11/2018 Assessment & Plan (11/27/2018 3:03 PM CDT): Stop the ranitidine. Will place on pantoprazole 40mg to see if nausea improves. Will also have her do 10mg Reglan once at bedtime. Pt to take zofran prn for nausea. Assessment & Plan (10/11/2018 3:44 PM CDT): I suspect this is delayed gastric emptying due some of the medications she is on and based on symptoms. Will have her start taking metoclopramide 5mg TID prior to meals. She denies hx of neurological or seizure history. Dyspepsia 08/15/2018 Assessment & Plan (11/27/2018 3:04 PM CDT): Will target improving constipation and giving reglan at bedtime to avoid dealing with gas during the day. Dyspepsia is likely due to delayed emptying from chronic narcotic use. Assessment & Plan (10/11/2018 3:45 PM CDT): Likely related to delayed gastric emptying. We will have her start taking reglan TID prior to meals. Assessment & Plan (09/10/2018 2:44 PM CDT): Appears to be functional. Pt having constant nausea and sometimes regurgitation. Will try Reglan 5mg TID about 30 minutes before meals. Assessment & Plan (08/15/2018 1:26 PM CDT): Will try Septra DS daily for 10 days for possible bacterial overgrowth contributing to her dyspepsia symptoms specially view of the slow gastrointestinal motility and pain medications use. Re-evaluate in the next visit. Irritable bowel syndrome with constipation 05/23 Assessment & Plan (11/27/2018 2:59 PM CDT): Continue to take fiber gummies daily and begin taking Miralax 1 capful daily along with fiber supplement. Assessment & Plan (10/11/2018 3:43 PM CDT): Will have patient increase fiber intake and start taking fiber gummies daily. She will also be placed on reglan for suspected delayed gastric emptying due to current medications which should also help with constipation. Assessment & Plan (09/10/2018 2:43 PM CDT): Goes about every other day but feels as if she doesn't completely empty and feels bloated when she doesn't go. Will have patient try Miralax once daily. Discussed importance of diet with IBS. Advised to keep a food journal and note foods that cause more dyspepsia. She was advised to avoid dairy to see how she does. Assessment & Plan (08/15/2018 1:25 PM CDT): Patient has chronic functional disease with chronic pain and chronic constipation. She she has immunosuppression for her other arthritis and chronic use of methotrexate. She had extensive previous GI evaluation. We will try Dulcolax suppository at night to help move her bowels. Patient was advised to stop taking the probiotics at this time and try to avoid nonsteroidal medication if possible. Follow-up in 6 weeks. Assessment & Plan (05/23/2018 12:19 PM CDT): She has a chronic history of IBS, not responding to conventional medications. She was referred to Dr. Karadaghy Hypothyroidism 02/23/2018 Assessment & Plan (05/23/2018 12:09 PM CDT): Follow-up thyroid function testing has shown: Follow-up TSH: 1.650 Follow-up Free T4: 0.71 (0.78-2.19). We will repeat the tests in 3 months. Assessment & Plan (02/23/2018 10:32 AM SIDE PANEL HANGER): A serum TSH is within normal limits. Free T4 is slightly decreased. We will repeat free T4 in 3 months. Ground glass opacity present on imaging of lung 01/31/2018 Assessment & Plan (05/23/2018 12:14 PM CDT): Follow-up chest CT on May 15, 2018 has shown: Follow-up chest CT on May 15, 2018 has shown: 1. Persistent emphysema, 2. Mild post inflammatory infiltrate or scarring in the right upper lobe improved compared to prior study, 3. No new infiltrates or nodules Assessment & Plan (02/22/2018 8:17 AM SIDE PANEL HANGER): Chest CT on February 07, 2018 revealed: 1. Localized Bronchiectasis, 2. Ground-glass opacity in the superior segment of the right lower lobe Unchanged. Follow-up chest CT has already been ordered. Assessment & Plan (01/31/2018 5:24 PM SIDE PANEL HANGER): Follow-up chest CT on February 07, 2018 has shown: 1. Focus of scarring with localized bronchiectasis, linear scarring and very little groundglass opacity in the superior segment of right lower lobe; not significantly changed since 08/04/2017. 2. Old T9 compression fracture. Follow-up chest CT was arranged in 8 months. WILVER (obstructive sleep apnea) 01/31/2018 Assessment & Plan (01/31/2018 5:23 PM SIDE PANEL HANGER): The patient has many clinical features of obstructive sleep apnea including loud snoring, daytime fatigue and excessive sleepiness. Mallampati score is class 3 and neck circumference is 15 in. Sleep study in February 2014 revealed: No evidence of obstructive sleep apnea with AHI of 0.4. BMI 27.0-27.9,adult 01/31/2018 Assessment & Plan (05/23/2018 12:13 PM CDT): She has gained about 8 lb since last visit. BMI: 27.93 kg/m2 Weight management through diet modification and lifestyle change was discussed with the patient. Assessment & Plan (02/22/2018 8:17 AM SIDE PANEL HANGER): Her BMI is 25.96kg/m2. No significant change in her weight since 8 months ago. Assessment & Plan (01/31/2018 5:21 PM SIDE PANEL HANGER): BMI is 26.50 kg/m2. She states that she has gained about 18 lb over the past 1.5 year. Chronic fatigue 01/31/2018 Assessment & Plan (02/22/2018 8:20 AM SIDE PANEL HANGER): Extensive workup for fatigue has not shown any abnormal findings. Free T4 is borderline and we will repeat the test in 3 months. Etiology of chronic fatigue could be multiple problems including: Fibromyalgia, poorly-controlled rheumatoid arthritis and polypharmacy. Assessment & Plan (01/31/2018 5:36 PM SIDE PANEL HANGER): Patient's chronic fatigue could be due to multiple problems includin. Hypothyroidism, 2. Possible obstructive sleep apnea, 3. Polypharmacy 5. Depression. TSH and free T4 were ordered. The patient asked to bring the complete list of medications that she is taking now, as there is a discrepancy between what we see in the computer and the medications that she thinks that she is on. Low back pain 01/14/2018 Assessment & Plan (10/11/2018 3:47 PM CDT): Pt having soreness in right rib that she thought might be related to her gallbladder. Pt states she had her gallbladder removed a few years ago. Based on symptoms and location of pain, I don't think this is related to any stones in bile ducts. Irritable bowel syndrome with constipation 01/14 BMI 25.0-25.9,adult 12/22/2017 Assessment & Plan (12/22/2017 5:19 PM CDT): BMI is 25.51. She states that she has gained about 15 lb over the past couple of years. Pulmonary nodule 12/22/2017 Assessment & Plan (05/23/2018 11:56 AM CDT): Follow-up chest CT on May 15, 2018 has shown: 1. Persistent emphysema, 2. Mild post inflammatory infiltrate or scarring in the right upper lobe improved compared to prior study, 3. No new infiltrates or nodules. Chest CT findings were discussed with the patient in detail. She had multiple questions with answered to her satisfaction. Which I answered to her satisfaction. Assessment & Plan (12/22/2017 5:19 PM CDT): Chest CT on August 04, 2017 revealed: 1. Diffuse upper and lower lobe tiny centrilobular peripheral nodules 2. 1.4 cm region of groundglass with adjacent bronchial dilatation in the right upper lobe. Follow-up chest CT was ordered in January. Shortness of breath 12/22/2017 Assessment & Plan (05/23/2018 11:58 AM CDT): She reports significant improvement in exertional shortness of breath. She denies any subjective fever, cough or chest pain. She was advised to continue with Stiolyo Respimat. Her inhaler technique was reviewed and correct technique was clearly explained and demonstrated. Assessment & Plan (02/22/2018 8:15 AM SIDE PANEL HANGER): The etiology of shortness of Breath is multifactorial Including emphysema, airway hyperreactivity and bronchiolitis. Today she reports moderate improvement in shortness of breath. She was advised to continue with Stiolto and albuterol inhaler as needed. Assessment & Plan (01/31/2018 5:30 PM SIDE PANEL HANGER): Eighty G of exertional shortness of breath is due to multiple medical problems includin. Emphysema, 2. Airway hyperreactivity, 3. Follicular bronchiolitis, 4. Possible pulmonary hypertension. About 4 weeks ago the patient was started onTrelegy Ellipta but she could not tolerate the medication. Today she was started on Stiolto Respimat. Assessment & Plan (12/22/2017 5:18 PM CDT): Could be due to multiple medical problems includin. Emphysema, 2. Airway hyperreactivity, 3. Possible pulmonary hypertension, 4. follicular bronchiolitis. Today the patient was started on combination of Trelegy Ellipta and albuterol inhaler. 6 min walk test was arranged as well. We will also consider cardiac echo. Centrilobular emphysema 12/22/2017 Assessment & Plan (05/23/2018 12:02 PM CDT): Pulmonary function testing and chest CT findings are consistent with emphysema of the lungs. She was advised to continue with Stiolto Respimat and albuterol inhaler 2 puffs as needed. Her inhaler technique was reviewed and correct technique was clearly explained and demonstrated. She is up-to-date on flu shot. Assessment & Plan (02/22/2018 8:13 AM SIDE PANEL HANGER): Pulmonary function testing and chest CT findings are consistent with emphysema of the lungs. She was started on Stiolto about 1 month ago and today she reports moderate improvement in shortness of breath and cough. She was advised to continue with Stiolto and albuterol inhaler as needed. Her inhaler technique was reviewed and correct technique was clearly explained and demonstrated. She is up-to-date on flu shot and pneumonia vaccine. Assessment & Plan (01/31/2018 5:40 PM SIDE PANEL HANGER): CT chest has shown eczematous changes and PFT also has shown moderate obstructive lung disease. FEV1 has shown borderline response to go dilator (180 mL and 13% improvement). The patient could not tolerate Trelegy. Currently she is on albuterol inhaler and Symbicort. Was advised to hold Symbicort and she was started on Stiolto Respimat. We will continue with albuterol inhaler as needed. Assessment & Plan (12/22/2017 5:20 PM CDT): She has 40 pack year smoking history. Chest CT has shown emphysematous changes and PFT has shown moderate obstructive lung disease. FEV1 has shown insignificant response to bronchodilator or (180 mL and 13%). Today she was started on Trelegy 1 puff once a day and albuterol inhaler 2 puffs as needed. Her inhaler technique was reviewed and correct technique was clearly explained and demonstrated. Sensorineural hearing loss (SNHL) of both ears 0 11/28/2017 Tinnitus of left ear 11/28/2017 Vitamin D deficiency 11/28/2017 Bladder polyp 11/28/2017 Depressive disorder 11/28/2017 Hypertriglyceridemia 11/28/2017 Left ear pain 11/28/2017 Menopausal syndrome 11/28/2017 Asthma 10/09/2017 Rheumatoid arthritis 07/14/2017 Assessment & Plan (05/23/2018 12:04 PM CDT): She was diagnosed with rheumatoid arthritis long time ago. Currently she is on low-dose prednisone (5 mg a day) and hydrocodone as needed. Assessment & Plan (02/23/2018 10:31 AM SIDE PANEL HANGER): Chronic fatigue could be due to rheumatoid arthritis. She was on combination of methotrexate and leflunomide in the past however currently she does not take any medicine. Her piano refinisher started her on Humira a while ago but she has not started it yet. Assessment & Plan (01/31/2018 5:27 PM SIDE PANEL HANGER): Symptoms well controlled. We will continue with current rheumatoid arthritis medications. 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 Other Current Plans Zoledronic Acid (Reclast) Infusion* Plan Start Date:03/15/2024 Plan Provider:Figueroa Hickey MD Linked Problems Age-related osteoporosis wit hout current pathological fracture Treatment Medications No medications scheduled. Past Treatment and Therapy Plans Lifetime Dose Tracking * Chemical Lifetime Dose Automatic Entry Manual Entr y DLP 1,347.9 mGycm 1,347.9 mGycm 0 mGycm CTDIvol 2.36 mGy 2.36 mGy 0 mGy Resolved Problems Problem Noted Date Diagnosed Date Resolved Date Nausea and vomiting 12/14/2021 01/11/20
--- OUTSIDE RECORDS SUMMARY | 2024-06-04 15:43 | XMS_ITS ---
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 May repeat in 30 minutes if needed 03/22/2023 Not-Taking predniSONE 10 MG 1 tablet Orally every 8 hours 12/2023 Not-Taking Omeprazole Unknown Medrol (Ambrosio) 4 MG as directed on the p ackage Orally as directed on the package 05/03/2024 Unknown Synthroid Unknown Requip Unknown Ibandronate Sodium U nknown Vitamin D Unknown Tylenol Unknown Vitamin C Unknown predniSONE Unknown Ferrous Sulfate Unkn own Centrum Silver Unkno wn SOCIAL HISTORY Tobacco Use: Social History Observation Description Date Details (start date - stop date) Former Smoker NA - NA Sex Assigned At : Social History Observation Description Sex Assigned At Unknown Tobacco Use/Smoking Question Answer Notes Are you a former smoker VITAL SIGNS BMI 21.45 kg/m2 05/30/2024 Height 64 in 05/30/2024 Weight 125 lbs 05/30/2024 Encounters Encounter Location Date Provider Diagnosis [facility] [address] [place] [address] 05/30/2024 Nitza Tameka Neck pain M54.2 ASSESSMENTS Encounter Date Diagnosis Assessment Notes Treatment Notes Treatment Clinical Notes 05/30/2024 Neck pain (ICD-10 - M54.2) PLAN OF TREATMENT No Information
--- OUTSIDE RECORDS SUMMARY | 2024-06-04 15:43 | XMS_ITS | Referral Summary ---
Author Organization [facility] Address [address] [place] [address] Care Team Providers Care Wwe Wrestler Name Role Phone Bro Cedeño MD Primary Care Provider [phone] Encounters Date Type Department Care Team Description 03/28/2024 2:00 PM OYSTER SHUCKER Infusion [facility] [facility] [address] [place] [phone] Age-related osteoporosis without current pathological fracture (Primary Dx) 03/26/2024 Telephone [facility]fusion [facility] [address] [place] [phone] Britt Luke RN 03/15/2024 Orders Only [facility] [address] [place] [address] [address] [place] [phone] Lata Kwon RN Age-related osteoporosis without current pathological fracture (Primary Dx) from Last 3 Months Allergies Active Allergy Reactions Criticality Noted Date Comments Codeine Itching,Nausea only High 12/12/2011 Moxifloxacin Rash Medium 08/09/2018 Medications DULoxetine (FRANCISCO) 60 mg capsule Active cholecalciferol (VITAMIN D-3) 25 mcg (1,000 unit) tablet daily Active cyanocobalamin (Vitamin B-12) 1,000 mcg/mL injection INJECT 1 ML UNDER THE SKIN EVERY WEEK FOR 90 DAYS 04/29/19 21 Active pramipexole (MIRAPEX) 0.125 mg tablet 05/05/19 21 Active Linzess 145 mcg capsule 09/04/19 21 Active lidocaine (XYLOCAINE) 5 % ointment Apply topically as needed for pain 240 g 1 10/08/19 21 Active Additional Information Patient not taking.Reported on 02/05/2024 ondansetron (ZOFRAN) 4 mg tablet Take 1 tablet (4 mg total) by mouth every 8 (eight) hours as needed 11/19/19 21 Active HYDROcodone-acet aminophen (NORCO) 7.5-325 mg per tablet 11/07/19 21 Active liothyronine (CYTOMEL) 5 mcg tablet Take 1 tablet (5 mcg total) by mouth daily Active semaglutide (OZEMPIC) 0.25 mg or 0.5 mg(2 mg/1.5 mL) pen injector injection Inject 0.5 mg under the skin every 7 days Active Vascepa 1 gram capsule Take 2 capsules by mouth 2 (two) times a day 01/29/20 21 Active insulin syringe-needle U-100 1 mL 25 x 1 syringe insulin syringe U-100 with needle 1 mL 25 x 1 take once weekly with b12 Active ferrous sulfate 325 mg (65 mg of elemental iron) tablet daily Active levalbuterol (XOPENEX HFA) 45 mcg/actuation inhaler Active ALPRAZolam (XANAX) 1 mg tablet 07/06/19 22 Active Synthroid 75 mcg tablet 05/23/19 22 Active alendronate (FOSAMAX) 70 mg tablet 10/28/19 22 Active amitriptyline (ELAVIL) 10 mg tablet Take 10 mg by mouth daily 11/03/19 22 Active amitriptyline (ELAVIL) 25 mg tablet Active cyclobenzaprine (FLEXERIL) 10 mg tablet Take 1 tablet (10 mg total) by mouth every 8 (eight) hours 12/27/19 22 Active multivitamin-Ca- iron-minerals tablet Take by mouth daily Active omeprazole (PriLOSEC) 40 mg capsule Take 1 capsule (40 mg total) by mouth daily 12/26/19 22 Active prednisoLONE acetate (PRED FORTE) 1 % ophthalmic suspension INSTILL 1 DROP IN BOTH EYES THREE TIMES DAILY 10/28/19 22 Active prochlorperazine (COMPAZINE) 10 mg tablet Take 10 mg by mouth as needed 11/04/19 Active rOPINIRole (REQUIP) 1 mg tablet Active tiZANidine (ZANAFLEX) 4 mg tablet 01/05/20 Active tocilizumab 162 mg/0.9 mL pen injector Inject 162 mg under the skin once a week 3.6 mL 5 02/12/20 Active Additional Information Patient not taking.Reported on 02/05/2024 meloxicam (MOBIC) 15 mg tablet Take one tablet by mouth once daily; do not exceed 1 tablet per 24 hours 30 tablet 02/25/20 Active Additional Information Patient not taking.Reported on 12/06/2022 methylPREDNISolo ne (MEDROL DOSEPACK) 4 mg Dosepack Take as directed on package 1 packet 03/02/20 Active Additional Information Patient not taking.Reported on 03/22/2022 azithromycin (ZITHROMAX) 250 mg tablet 02/10/20 Active benzonatate (TESSALON) 100 mg capsule TAKE 1 CAPSULE BY MOUTH THREE TIMES DAILY NEEDED 02/06/[address] (VOLTAREN) 75 mg EC tablet 03/14/19 23 Active ibandronate (BONIVA) 150 mg tablet 03/14/19 23 Active neomycin-polymyx in-HC (CORTISPORIN) otic solution INSTILL 4 DROPS TO AFFECTED EAR 3 TO 4 TIMES DAILY FOR 10 DAYS 02/05/20 22 Active sulfaSALAzine EN (AZULFIDINE EN) 500 mg EC tablet 03/14/19 23 Active traMADoL (ULTRAM) 50 mg tablet 03/14/19 23 Active naltrexone (LOW DOSE) 1 mg capsuleIndicatio ns:Rheumatoid arthritis, involving unspecified site, unspecified whether rheumatoid factor present (HCC),High risk medication use Take 1 capsule (1 mg total) by mouth daily for 14 days, THEN 2 capsules (2 mg total) daily for 14 days, THEN 3 capsules (3 mg total) daily for 14 days, THEN 4 capsules (4 mg total) daily for 14 days. 140 capsule 03/21/19 23 Active ibandronate (BONIVA) 150 mg tablet Take 1 tablet (150 mg total) by mouth every 30 (thirty) days Take in AM with glass of water prior to food, don't lie down for 30 minutes. Active ranitidine HCl (ACID TOUR GUIDE, RANITIDINE, ORAL) 300 mg Active methadone (DOLOPHINE) 5 mg tablet methadone 5 mg tablet TAKE 1 TABLET BY MOUTH EVERY 8 HOURS NEEDED WITH TYLENOL Active morphine ER (MS CONTIN) 15 mg 12 hr tablet Take 1 tablet (15 mg total) by mouth every 12 (twelve) hours 07/12/19 23 Active predniSONE (DELTASONE) 20 mg tablet TAKE 1 TABLET BY MOUTH EVERY DAY FOR 5 DAYS 08/02/19 23 Active predniSONE (DELTASONE) 5 mg tablet Take 3 tablets (15 mg) by mouth daily 07/29/19 23 Active Ozempic 0.25 mg or 0.5 mg (2 mg/3 mL) pen injector injection INJECT 0.25 MG UNDER THE SKIN EVERY WEEK DIRECTED 07/12/19 23 Active senna 8.6 mg tablet Take 1 tablet by mouth daily 09/06/19 23 Active methocarbamoL (ROBAXIN) 500 mg tablet TAKE 2 TABLETS BY MOUTH FOUR TIMES DAILY NEEDED 09/13/19 Active tiotropium bromide (SPIRIVA RESPIMAT) 2.5 mcg/actuation inhaler Inhale 2 puffs daily 4 g 3 12/07/19 23 Active ipratropium-albu teroL (COMBIVENT RESPIMAT) 20-100 mcg/actuation inhalerIndicatio ns:Chronic Obstructive Pulmonary Disease with Bronchospasms Inhale 1 puff 4 (four) times a day as needed for wheezing 4 each 3 12/07/19 23 Active fluticasone propionate (FLONASE) 50 mcg/actuation nasal spray Administer 2 sprays into each nostril daily 1 each 12/16/19 Active albuterol HFA (PROVENTIL HFA,VENTOLIN HFA,PROAIR HFA) 90 mcg/actuation inhaler 2 puffs every 4 (four) hours as needed 12/24/19 Active amoxicillin (AMOXIL) 875 mg tablet Take 1 tablet (875 mg total) by mouth every 12 (twelve) hours for 10 days 12/24/19 23 Active cefdinir (OMNICEF) 300 mg capsule TAKE 1 CAPSULE BY MOUTH TWICE DAILY FOR 7 DAYS Active cephalexin (KEFLEX) 500 mg capsule Take 1 capsule (500 mg total) by mouth every 12 (twelve) hours Active chlorhexidine (PERIDEX) 0.12 % solution RINSE 5ML BY MOUTH TWICE DAILY STARTING 24 HOURS AFTER SURGERY. DO NOT USE LONGER THAN TWO WEEKS 11/22/19 23 Active fenofibrate choline (Trilipix) 135 mg capsule Take 1 capsule every day by oral route. 08/09/19 Active simvastatin (ZOCOR) 20 mg tablet Take 1 tablet every day by oral route. 08/09/19 15 Active furosemide (LASIX) 20 mg tablet TAKE 1 TABLET BY MOUTH EVERY DAY FOR 7 DAYS 01/28/20 Active hylan g-f 20 (Synvisc-One) 48 mg/6 mL syringe Take 6 mL by intraarticular route. 01/20/20 23 Active ibuprofen (ADVIL,MOTRIN) 800 mg tablet TAKE 1TABLET BY MOUTH 3 TIMES DAILY 01/06/20 23 Active amLODIPine (NORVASC) 5 mg tablet Take 1 tablet (5 mg total) by mouth daily 12/14/19 24 Active apixaban (Eliquis) 5 mg tablet Take 1 tablet (5 mg total) by mouth 2 (two) times a day 09/07/19 24 Active azaTHIOprine (IMURAN) 50 mg tablet Take 2 tablets (100 mg total) by mouth daily Active EnbreL SureClick 50 mg/mL (1 mL) pen injector Active famotidine (PEPCID) 20 mg tablet Take 1 tablet (20 mg total) by mouth daily 12/05/19 24 Active gabapentin (NEURONTIN) 300 mg capsule Take 1 capsule (300 mg total) by mouth 2 (two) times a day 11/09/19 24 Active gabapentin (NEURONTIN) 600 mg tablet PLEASE SEE ATTACHED FOR DETAILED DIRECTIONS 12/27/19 24 Active halobetasol (ULTRAVATE) 0.05 % cream Active levoFLOXacin (LEVAQUIN) 500 mg tablet TAKE 1 TABLET BY MOUTH EVERY 24 HOURS FOR 10 DAYS 01/30/20 24 Active loperamide (IMODIUM) 2 mg capsule 1 capsule (2 mg total) 04/26/19 24 Active oxyBUTYnin XL (DITROPAN-XL) 10 mg 24 hr tablet Take 1 tablet (10 mg total) by mouth daily Active pantoprazole DR (PROTONIX) 40 mg EC tablet Take 1 tablet (40 mg total) by mouth daily 12/17/19 24 Active budesonide-formo terol (SYMBICORT) 160-4.5 mcg/actuation inhaler Inhale 2 puffs 2 (two) times a day. Rinse mouth with water after use to reduce aftertaste and incidence of candidiasis. Do not swallow. 1 Inhaler 3 01/02/20 18 018 Discontin ued(Other ) fluticasone-chana nterol (BREO ELLIPTA) 100-25 mcg/dose diskus inhaler Breo Ellipta 100 mcg-25 mcg/dose powder for inhalation 018 Discontin ued(Other ) Active Problems Problem Noted Date Diagnosed Date [...] conventional medications. She was referred to Dr. Coleman Hypothyroidism 02/23/2018 Assessment & Plan (05/23/2018 12:09 PM CDT): Follow-up thyroid function testing has shown: Follow-up TSH: 1.650 Follow-up Free T4: 0.71 (0.78-2.19). We will repeat the tests in 3 months. Assessment & Plan (02/23/2018 10:32 AM OYSTER SHUCKER): A serum TSH is within normal limits. [...] nodules Assessment & Plan (02/22/2018 8:17 AM OYSTER SHUCKER): Chest CT on February 07, 2018 revealed: 1. Localized Bronchiectasis, 2. Ground-glass opacity in the superior segment of the right lower lobe Unchanged. Follow-up chest CT has already been ordered. Assessment & Plan (01/31/2018 5:24 PM OYSTER SHUCKER): Follow-up chest CT on February 07, 2018 has shown: 1. Focus of scarring with localized bronchiectasis, linear scarring and very little groundglass opacity in the superior segment of right lower lobe; not significantly changed since 08/04/2017. 2. Old T9 compression fracture. Follow-up chest CT was arranged in 8 months. WILVER (obstructive sleep apnea) 01/31/2018 Assessment & Plan (01/31/2018 5:23 PM OYSTER SHUCKER): The patient has many clinical features of [...] patient. Assessment & Plan (02/22/2018 8:17 AM OYSTER SHUCKER): Her BMI is 25.96kg/m2. No significant change in her weight since 8 months ago. Assessment & Plan (01/31/2018 5:21 PM OYSTER SHUCKER): BMI is 26.50 kg/m2. She states that she has gained about 18 lb over the past 1.5 year. Chronic fatigue 01/31/2018 Assessment & Plan (02/22/2018 8:20 AM OYSTER SHUCKER): Extensive workup for fatigue has not shown any abnormal findings. Free T4 is borderline and we will repeat the test in 3 months. Etiology of chronic fatigue could be multiple problems including: Fibromyalgia, poorly-controlled rheumatoid arthritis and polypharmacy. Assessment & Plan (01/31/2018 5:36 PM OYSTER SHUCKER): Patient's chronic fatigue could be due to [...] demonstrated. Assessment & Plan (02/22/2018 8:15 AM OYSTER SHUCKER): The etiology of shortness of Breath is multifactorial Including emphysema, airway hyperreactivity and bronchiolitis. Today she reports moderate improvement in shortness of breath. She was advised to continue with Stiolto and albuterol inhaler as needed. Assessment & Plan (01/31/2018 5:30 PM OYSTER SHUCKER): Eighty G of exertional shortness of breath [...] shot. Assessment & Plan (02/22/2018 8:13 AM OYSTER SHUCKER): Pulmonary function testing and chest CT findings [...] vaccine. Assessment & Plan (01/31/2018 5:40 PM OYSTER SHUCKER): CT chest has shown eczematous changes and [...] needed. Assessment & Plan (02/23/2018 10:31 AM OYSTER SHUCKER): Chronic fatigue could be due to rheumatoid arthritis. She was on combination of methotrexate and leflunomide in the past however currently she does not take any medicine. Her fern cutter started her on Humira a while ago but she has not started it yet. Assessment & Plan (01/31/2018 5:27 PM OYSTER SHUCKER): Symptoms well controlled. We will continue with current rheumatoid arthritis medications. 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 Never true 03/28/19 25 Within the past 12 months, t he food you bought just didn't last and you didn't have money to get more. Never true 03/28/2024 Personal Safety Answer Date Recorded Have you ever been in or are you currently in a harmful physical or emotional relationship or is someone making you feel afraid or unsafe? Denies 03/28/2024 Comments No Sex and Gender Information Value Date Recorded Sex Assigned at Not on file Legal Sex Female 6:43 PM OYSTER SHUCKER Gender Identity Not on file Sexual Orientation Not on file Last Filed Vital Signs Vital Sign Reading Time Taken Comments Blood Pressure 140/74 03/28/2024 1:55 PM OYSTER SHUCKER Pulse 104 03/28/2024 1:56 PM OYSTER SHUCKER Temperature 36.3 C (97.3 F) 03/28/2024 1:55 PM OYSTER SHUCKER Respiratory Rate 18 02/15/2023 1:53 PM OYSTER SHUCKER Oxygen Saturation 98% 03/28/2024 1:56 PM OYSTER SHUCKER Inhaled Oxygen Concentration - - Weight 61.7 kg (136 lb) 03/28/2024 1:55 PM OYSTER SHUCKER Height 152.4 cm (5') 02/05/2024 2:22 PM OYSTER SHUCKER Body Mass Index 26.56 02/05/2024 2:22 PM OYSTER SHUCKER Plan of Treatment Not on file Procedures Procedure Name Priority Date/Time Associated Diagnosis Comments DEXA TBS AXIAL SKELETON BONE DENSITY 1 OR MORE SITES Schedule Routine, Read Routine (OP Routine) 02/05/2024 2:34 PM OYSTER SHUCKER Age-related osteoporosis without current pathological fracture HEPATITIS PANEL, ACUTE Routine 01/25/2021 2:40 PM OYSTER SHUCKER Rheumatoid arthritis, involving unspecified site, unspecified whether rheumatoid factor present (HCC) from Last 3 Months or Most Recently Relevant to Health Maintenance Results * Dexa TBS Axial Skeleton Bone Density 1 or more sites (02/05/2024 2:34 PM OYSTER SHUCKER) Anatomical Region Laterality Modality Wrist, Body N/A Radiographic Robyn ging Narrative 02/05/2024 2:50 PM OYSTER SHUCKER Patient Name: Alta Vargas Date of : 1955 Date of scan: 02/05/2024 Bone mineral density was performed on a [employer] Discovery Densitometer. Based on machine cross-calibration and precision studies the least significant changes of this densitometer is 0.024 g/cm2 at the spine, 0.020 g/cm2 at the total proximal femur, and 0.014g/cm2 at the forearm. HISTORY: This is a 68 y.o. postmenopausal female with a history of asthma, multiple fractures, osteoporosis, rheumatoid arthritis, thyroid disease, and vitamin D deficiency. She reports that she has quit smoking. Her smoking use included vaping and cigarettes. She has never used smokeless tobacco. Currently on treatment with calcium, vitamin D, glucocorticoids, and thyroid hormone, previously treated with alendronate (Fosamax), anticoagulants, and diuretics, and current complaint of arm pain, back pain, neck pain, and leg pain. INDICATIONS: Menopause status, treatment monitoring, history of prior vertebral fracture, vitamin D deficiency, currently on 20 mg of glucocorticoids for the past 6 year(s), and history of osteoporosis. FINDINGS: BONE MINERAL DENSITY OF THE LUMBAR SPINE Bone Mineral Density (BMD) of the lumbar spine was measured from L3-L4 and the average density was calculated to be 0.749 gm/cm2. This corresponds to a T-score (standard deviations from the mean of young adults) of -3.2. There is no previous study available for comparison. BONE MINERAL DENSITY OF THE PROXIMAL FEMUR Bone Mineral Density (BMD) of the left hip total was found to be 0.681 gm/cm2. This corresponds to a T-score standard deviations from the mean of young adults of -2.1. Femoral neck is 0.575 gm/cm2 with a T-score (standard deviations from the mean of young adults) of -2.5. There is no previous study available for comparison. SUMMARY: Bone mineral density shows evidence of osteoporosis and marked increase risk of fracture. L2 excluded from bone mineral density analysis of the lumbar spine due to history of compression deformity. L1 excluded due to the presence of vertebroplasty material. The lumbar spine Trabecular Bone Score is 1.035 which suggests degraded bone microarchitecture compared to the general population. Final decisions regarding diagnostic or therapeutic recommendations should include BMD, TBS, additional clinical risk factors as well the clinical context of the patient. Please see attached TBS results for further details. ADDITIONAL COMMENTS: Postmenopausal Women and Men Over 50: Diagnostic criteria: Osteoporosis: BMD at or below -2.5 T-score; Osteopenia (low bone mass): BMD between -1.0 and -2.5 T-score. If the patient has a history of a fragility fracture, a fracture that occurred with trauma equivalent to a fall from a standing position or less, then the diagnosis is osteoporosis regardless of bone density. The history and data sections of the bone mineral density scan were prepared by Elida Artis(Lolly) CBDT who is accredited by the International Society of Clinical Densitometry. The overall patient assessment and scan interpretation were performed by Figueroa Hickey M.D. who is certified by the International Society of Clinical Densitometry. [id number] Figueroa Hickey MD IMG DXA PROCEDURES Final Re sult * Hepatitis panel, acute (01/25/2021 2:40 PM OYSTER SHUCKER) Hep A IgM Nonreactive Nonreactive [facility] Comment: Interpretive Data: If Hep A IgM Ab is reported as Equivocal, a new sample should be drawn in two weeks for testing. Current interpretive data was last revised on 19. Hep B core IgM Nonreactive Nonreactive [facility] Comment: Interpretive Data If HepB Core IgM Ab is reported as Equivocal, a new sample should be drawn in two weeks for testing. Current interpretive data was last revised on 19. Hep C Ab Nonreactive Nonreactive [facility] Comment:Antibodies to HCV no t detected. Does NOT exclude the possibility of recent exposure to HCV. HepBsAg Nonreactive Nonreactive [facility] Blood 01/25/2021 2:40 PM OYSTER SHUCKER 01/25/2021 7:31 PM OYSTER SHUCKER Apolonia Wan MD LAB MICROBIOLOGY - GENERAL ORD ERABLES Edited Result - Final [facility] Department [place] [address] from Last 3 Months or Most Recently Relevant to Health Maintenance Insurance [facility] MEDICARE ADVANTAGE IDPA [facility] MEDIC[facility] ADVANTAGE Care Teams Wwe Wrestler Relationship Specialty Start Date End Date Bro Cedeño MD [address] [place] [address] PCP - General Internal Medicine 02/05/24
--- OUTSIDE RECORDS SUMMARY | 2024-06-04 15:43 | XMS_ITS | Encounter Summary ---
Author Organization [facility] Address [address] [place] [address] Care Team Providers Care Director Hair Name Role Phone Christofer Merrill MD Primary Care Provider [phone] Taurus Gleason DC Unavailable Yvonne Rae MD Unavailable Encounter Details Date Type Department Care Team (Late st Contact Info) Description 09/08/2017 [facility] [address] [place] [address] [place] [id number] [phone] Social History Tobacco Use Types Packs/Day Years Used Date Smoking Tobacco: Former Cigarettes 1 40 Smokeless Tobacco: Never Comments:States she vapes no [...] on filedocumented in this encounter Care Teams Director Hair Relationship Specialty Start Date End Date Christofer Merrill MD [address] [place] [address] [address] [place] [address] PCP - General Internal Medicine 12/06/11 Taurus Gleason DC [address] [place] [address] Chiropractic 12/13/11 [place] [address] [address] [place] [phone] Rheumatology 08/22/17 documented as of this encounter
--- OUTSIDE RECORDS SUMMARY | 2024-06-04 15:43 | XMS_ITS | Encounter Summary ---
Author Organization [facility] Address [address] [place] [address] Phone Care Team Providers Care Banking Services Clerk Name Role Phone Christofer Merrill MD Primary Care Provider Bro Cedeño MD Primary Care Provider [phone] Encounter Details Date Type Department Care Team (Latest Contact Info) Description 10/11/2022 Orders Only [facility] Scanning, Provider Social History Tobacco Use Types Packs/Day Years [...] on file Legal Sex Female 6:43 PM EXCELLENCE SPECIALIST Gender Identity Not on file Sexual Orientation Not on file documented as of this encounter Plan of Treatment Not on file documented as of this encounter Procedures Procedure Name Priority Date/Time Associated Diagnosis Comments SCAN - LABS 10/11/2022 documented in this encounter Results * SCAN - LABS (10/11/2022) us Provider Scanning Final Result documented in this encounter Visit Diagnoses Not on filedocumented in this encounter Care Teams Banking Services Clerk Relationship Specialty Start Date End Date Christofer Merrill MD PCP - General Internal Medicine 12/22/17 01/25/23 Bro Cedeño MD [address] [place] [id number] PCP - General Internal Medicine 02/05/24 documented as of this encounter
--- OUTSIDE RECORDS SUMMARY | 2024-06-04 15:43 | XMS_ITS | Encounter Summary ---
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
--- OUTSIDE RECORDS SUMMARY | 2024-06-04 15:43 | XMS_ITS | CONTINUITY OF CARE DOCUMENT ---
Author Name bonnieivan bonnieivan Address Unknown Organization [facility] Address [address] [place] [address] Phone [phone] Care Team Providers Care Car Knocker Name Role Phone Brad Johnston MD Unavailable [phone] Bro Cedeño MD Unavailable Bro Cedeño MD Unavailable PROBLEMS Condition Status Date Provider Notes Chest pain active Brad Johnston MD Shortness of breath active Brad Johnston MD Cardiology examination active Brad Johnston MD Back pain active Brad Johnston MD HTN essential active Brad Johnston MD Pulmonary embolism active Brad Johnston MD Leg pain, bilateral active Brad Johnston MD Abnormal EKG active Brad Johnston MD Palpitations active Brad Johnston MD Former smoker active Brad Johnston MD COPD active Brad Johnston MD Rheumatoid arthritis active Brad Johnston MD ENCOUNTERS Date Type Provider Location Encounter Diag nosis - In-person encounter Office Visit Brad Johnston MD [place] [facility] - In-person encounter Office Visit Brad Johnston MD [place] [facility] HTN essentialBack pain - In-person encounter Office Visit Brad Johnston MD [place] [facility] - In-person encounter Office Visit Brad Johnston MD [place] [facility] Pulmonary embolism - In-person encounter Office Visit Brad Johnston MD [place] [facility] Leg pain, bilateral - In-person encounter Office Visit Brad Johnston MD [place] [facility] - In-person encounter Office Visit Brad Johnston MD [place] [facility] - In-person encounter Office Visit Brad Johnston MD [place] [facility] Cardiology examinationRheumatoid arthritisCOPDFormer smokerPalpitationsAbnormal EKG - In-person encounter Office Visit Brad Johnston MD [place] [facility] - In-person encounter Office Visit Brad Johnston MD [place] [facility] Chest painShortness of breath VITAL SIGNS Date Observation Value Provider Body Mass Index (Ratio) 23.17 kg/m2 Sukhdev Johnston MD blood pressure, diastolic 77 mm[Hg] Chanel Barnes blood pressure, systolic 124 mm[Hg] Kaci Barnes oxygen saturation, oximetry 98 % Nichole Barnes pulse rate 96 /min Nichole Barnes respiratory rate E&M 12 /min Nichole Barnes weight E&M 135 [lb_av] Nichole Barnes height E&M 64 [in_i] Nichole Barnes blood pressure, cuff size regular Chanel Barnes Body Mass Index (Ratio) 21.45 kg/m2 Sukhdev Johnston MD pulse rate 99 /min Lilliana Porter blood pressure, cuff size regular Ta neva Porter blood pressure, diastolic 90 mm[Hg] Ta neva [place] blood pressure, systolic 149 mm[Hg] Brayan valladares Porter oxygen saturation, oximetry 98 % Lilliana [place] respiratory rate E&M 20 /min Lilliana [place] weight E&M 125 [lb_av] Lilliana [place] height E&M 64 [in_i] Lilliana [place] Body Mass Index (Ratio) 23.00 kg/m2 Sukhdev Johnston MD blood pressure, cuff size regular Jasvir [facility] blood pressure, diastolic 72 mm[Hg] Ja blood pressure, systolic 126 mm[Hg] [facility] pulse rate 91 /min Zeb respiratory rate E&M 16 /min Zeb oxygen saturation, oximetry 98 % Zeb weight E&M 134 [lb_av] Zeb height E&M 64 [in_i] Zeb Body Mass Index (Ratio) 23.17 kg/m2 Sukhdev Johnston MD pulse rate 96 /min Zeb blood pressure, diastolic 95 mm[Hg] Ja rret blood pressure, systolic 150 mm[Hg] Jar [facility] weight E&M 135 [lb_av] Zeb oxygen saturation, oximetry 99 % Zeb respiratory rate E&M 16 /min Zeb height E&M 64 [in_i] Zeb Cardona y blood pressure, cuff size regular Jaspal ryan Porter blood pressure, diastolic 81 mm[Hg] Jaspal davis Porter blood pressure, systolic 129 mm[Hg] Jon Porter oxygen saturation, oximetry 98 % Camilla Porter respiratory rate E&M 16 /min Camilla mcdonald pulse rate 98 /min Camilla Porter height E&M 64 [in_i] Camilla Porter Body Mass Index (Ratio) 22.48 kg/m2 Sukhdev Johnston MD blood pressure, diastolic 70 mm[Hg] An kizzy Conroy blood pressure, systolic 120 mm[Hg] Any martin Conroy oxygen saturation, oximetry 99 % Eunice Conroy pulse rate 80 /min Eunice Conroy weight E&M 131 [lb_av] Eunice Conroy blood pressure, cuff size large An kizzy Conroy height E&M 64 [in_i] Eunice Conroy Body Mass Index (Ratio) 21.45 kg/m2 Sukhdev Johnston MD blood pressure, diastolic 84 mm[Hg] Ri cheryl Villafuerte blood pressure, systolic 142 mm[Hg] Jonnathan dylan Vill[place] respiratory rate E&M 16 /min Roseann Villafuerte blood pressure, cuff size regular Ri cheryl Vill[place]te pulse rate 85 /min Eden arriaga oxygen saturation, oximetry 99 % Eden Villafuerte weight E&M 125 [lb_av] Eden arriaga height E&M 64 [in_i] Eden arriaga Body Mass Index (Ratio) 21.80 kg/m2 Sukhdev Johnston MD blood pressure, diastolic 84 mm[Hg] Mi cheryl Cheng blood pressure, systolic 144 mm[Hg] Nikhil dylan Cheng oxygen saturation, oximetry 98 % Lata Cheng pulse rate 70 /min Lata koch weight E&M 127 [lb_av] Lata koch respiratory rate E&M 16 /min Erika janee Cheng blood pressure, cuff size large Rita luna Prosper height E&M 64 [in_i] Lata koch Body Mass Index (Ratio) 26.26 kg/m2 Sukhdev Johnston MD blood pressure, cuff size small Cy cristhian Salazar blood pressure, diastolic 80 mm[Hg] Cy ntjenelle Martin blood pressure, systolic 120 mm[Hg] Swathi naldo Martin oxygen saturation, oximetry 98 % Mariannenaldo Salazar respiratory rate E&M 16 /min Marianne Salazar pulse rate 94 /min Marianne Campbel l weight E&M 153 [lb_av] Marianne Campbel l height E&M 64 [in_i] Marianne Campbel l Body Mass Index (Ratio) 26.26 kg/m2 Sukhdev Johnston MD blood pressure, diastolic 78 mm[Hg] Da pauly Freeman blood pressure, systolic 122 mm[Hg] Dac ia Freeman oxygen saturation, oximetry 95 % Anisha Freeman respiratory rate E&M 16 /min Anisha V oss pulse rate 88 /min Anisha Freeman weight E&M 153 [lb_av] Anisha Freeman height E&M 64 [in_i] Anisha Freeman ALLERGIES Allergy Name Onset Date Reaction Criticality Status CODEINE High Criticality active RESULTS Date Observation Value Provider Reference Range Interpretation Location basophils as percent of blood leukocytes 0.4 % [facility] Normal eosinophils as percent of blood leukocytes 0.6 % [facility] Normal monocyte count, blood 5.6 % [facility] Normal lymphocyte count, blood 5.5 % [facility] Normal neutrophils as percent of blood leukocytes 87.9 % [facility] Normal basophils, absolute, manual 68 cells/mcL [facility] 0-200 Normal eosinophils, absolute, manual 102 cells/mcL [facility] 15-500 Normal monocytes, absolute, manual 952 cells/mcL [facility] 200-950 High lymphocytes, absolute 935 CELLS/UL [facility] 850-3900 Normal Absolute Neutrophil count 07426 cells/mcL [facility] 7419-5409 High mean platelet volume 9.3 fL [facility] 7.5-12.5 Normal platelet count 356 THOUSAND/U L [facility] 140-400 Normal red blood cell distribution width 16.1 % [facility] 11.0-15.0 High mean corpuscular hemoglobin concentration, RBC 30.2 G/DL [facility] 32.0-36.0 Low mean corpuscular hemoglobin, RBC 23.8 pg [facility] 27.0-33.0 Low mean corpuscular volume, RBC 78.8 fL [facility] 80.0-100.0 Low hematocrit, blood 33.4 % [facility] 35.0-45.0 Low hemoglobin electrophoresis, blood 10.1 [facility] 11.7-15.5 Low erythrocyte (RBC) count 4.24 MILLION/UL [facility] 3.80-5.10 Normal leukocyte (white blood cells) count, blood 17.0 THOUSAND/U L [facility] 3.8-10.8 High HISTORY OF MEDICATION USE Medication Status Instructions Dates Provider Indications Com ments tramadol 50 mg tablet active Take 1 tablet by mouth every eight hours for pain Brad Johnston MD amlodipine 5 mg tablet active Take 1 tablet by mouth once a day 3 Brad Johnston MD Eliquis 5 mg tablet completed - 2 Brad Johnston MD Cymbalta 30 mg capsule,delayed release(DR/EC) active Take 1 tablet once a day 0 Marianne Salazar Pepcid 20 mg tablet active Take tablet by mouth once a day 2 Anisha Millard Neurontin 300 mg capsule active Take capsule by mouth twice a day 2 Anisha Millard NEURONTIN 300 MG ORAL CAPSULE completed take one daily 2 - 0 Marianne Salazar NORTRIPTYLINE HCL 10 MG ORAL CAPSULE completed take once daily 2 - 0 Marianne Salazar Linzess 72 mcg capsule active Take capsule by mouth once a day 2 Anisha Freeman hydrocodone-aceta minophen 10-325 mg tablet active Take 1 tablet by mouth three times a day 2 Anisha Millard Cymbalta 60 mg capsule,delayed release(DR/EC) active Take 1 once a day 2 Anisha Millard alprazolam 2 mg tablet active Take 1 tablet by mouth four times a day 2 Anisha Milalrd ASPIR-81 81 MG ORAL TABLET DELAYED RELEASE completed take one daily 2 - 0 Marianne Salazar SOCIAL HISTORY Date Observation Value Provider alcohol use no Brad Johnston MD smoking, year quit 2015 Brad sepulveda MD number of years as a smoker 48 a Brad Johnston MD smoking history, tot al pack/day 1 PPD Brad Johnston MD cigarette use yes Brad Koch smoking status Former smoker Brad Johnston MD alcohol use no Brad Johnston MD smoking, year quit 2015 Brad sepulveda MD number of years as a smoker 48 a Brad Johnston MD smoking history, tot al pack/day 1 JOSE DANIEL Johnston MD cigarette use yes Brad Koch smoking status Former smoker Brad Johnston MD alcohol use no Brad Johnston MD smoking, year quit 2015 Brad sepulveda MD number of years as a smoker 48 a Brad Johnston MD smoking history, tot al pack/day 1 PPD Brad Johnston MD cigarette use yes Brad Koch smoking status Former smoker Brad Johnston MD smoking, year quit 2015 Brad sepulveda MD number of years as a smoker 48 a Brad Johnston MD smoking history, tot al pack/day 1 PPD Brad Johnston MD cigarette use yes Brad Koch smoking status Former smoker Brad Johnston MD social history reviewed E&M revi ewed - no changes required Brad Johnston MD social history E&M S moking History: P atpatricia is a former smoker. Brad Johnston MD social history reviewed E&M revi ewed - no changes required Brad Johnston MD smoking status Former smoker Eunice Dwight fuentes smoking, year quit 2015 Eunice Will iams number of years as a smoker 48 a Eunice Conroy smoking history, tot al pack/day 1 PPD Eunice Conroy cigarette use yes Eunice Conroy social history E&M S moking History: P deyvi is a former smoker. Brad Johnston MD social history reviewed E&M revi ewed - no changes required Brad Johnston MD smoking, year quit 2015 Eden Villafuerte number of years as a smoker 48 a Eden Villafuerte smoking history, tot al pack/day 1 PPD Eden Villafuerte cigarette use yes Eden olmedo smoking status Former smoker Eden hathaway social history E&M S moking History: Carolyn carnes is a former smoker. Brad Johnston MD social history reviewed E&M revi ewed - no changes required Brad Johnston MD smoking, year quit 2015 Lata Cheng cigarette use yes Lata Nicholson andrews smoking status Former smoker Lata casillas social history E&M S moking History: Carolyn carnes is a former smoker. Brad Johnston MD social history reviewed E&M revi ewed - no changes required Brad Johnston MD smoking history, tot al pack/day 1 PPD Marianne Salazar smoking, year quit 2 Marianne soler alcohol use no Marianne velazquez number of grandchildren Brad Johnston MD U venita Johnston MD alcohol use no Brad Johnston MD social history E&M S moking History: Carolyn carnes is a former smoker. Brad Johnston MD social history reviewed E&M revi ewed - no changes required Brad Johnston MD smoking, year quit 2016 Anisha Karen s number of years as a smoker 48 a Anisha Freeman smoking history, tot al pack/day 1.5 Anisha Freeman FAMILY HISTORY Family Member Condition Full Sister Family History of Co ronary Artery Disease: Full Brother Family History of Co ronary Artery Disease: INSURANCE PROVIDERS Payer name Policy type / Coverage type Leonardo red alliance party ID [id number] (PPO C-SNP) Commercial insurance [employer] [id number] HEALTHCARE AND FAMILY SERVICES Medicaid 1 [id number] ADVANCE DIRECTIVES Name Date DISCUSSED - NO DECISION MADE TREATMENT PLAN Date Name Performer [id number],C,H as good distal pulses so I do not think it is vascular based Brad Johnston MD [id number],S, Brad Johnston MD [id number],C,M ost likely due to COPD. Last echo looked fine Brad Johnston MD [id number],B, Brad Johnston MD [id number],S, Brad Johnston MD [id number],S, Brad Johnston MD [id number],S, Brad Johnston MD [id number],S, Brad Johnston MD [id number],S, Brad Johnston MD [id number],S, Brad Johnston MD [id number],S,I n the face of a normal echo and a benign monitor, there is no reason to worry, and she has a good prognosis. Brad Johnston MD [id number],W, C /o random chest pain 3-4x per week. It lasts for 15 minutes then resolves. We'll check an echo and regadenoson stress test. Brad Johnston MD [id number],W, S hafsa she complains of palpitations, we'll have her wear a moniotr for 48 hours. Brad Johnston MD [id number],S, Brad Johnston MD [id number],S, A s above. Brad Johnston MD Cardiology:continued cessation encouraged quit 2016 Brad Johnston MD Cardiology Brad Johnston MD Cardiology:was dx wi th degerative joint diesases and is being treated by a pain management docv Brad Johnston MD Cardiology:Scar blake at [facility] with pneumonia, is better. O2 is 98% today Brad Johnston MD Cardiology: B P today: 124/77 P rior BP: 149/90 (12/14/2023) Her updated medication list for this problem includes: Amlodipine 5 Mg Tablet (Amlodipine) ..... Take 1 tablet by mouth once a day This visit has been a part of the consistent, comprehensive, and ongoing management of the chronic medical condition(s) listed above for the patient. Brad Johnston MD Cardiology:due to ba seline deconditioning due to arthritic pains and pains related to vertebral fractures Brad Johnston MD Cardiology:denies Brad Johnston MD Cardiology:given 10 day tramadol q 8hrs l imits activity c ontinue following with pain management Brad Johnston MD Cardiology: H er updated medication list for this problem includes: Amlodipine 5 Mg Tablet (Amlodipine) ..... Take 1 tablet by mouth once a day BP today: 149/90 P rior BP: 126/72 (06/15/2023) Brad Johnston MD Cardiology:No new episodes Brad Johnston MD Cardiology:Likely due to COPD Us ramon Johnston MD Cardiology:She is sl ightly anemic and says her hemoglobin levels are down around 9 from the hospital and recent bloodwork showed 10.6 on 05/19/23. Will re-check in 2 weeks. Brad Johnston MD Cardiology Brad Johnston MD Cardiology:arrange for R hrt cat h at [facility] as outpatient Brad Johnston MD Cardiology:on eliqui s S OB and fatigue continue S he needs R heart cath, had LVEDP on L hrt cath done by Andriy in [facility] T maninder risks and benefits of the procedure, including but not limited the risk of heart attack, , stroke, bleeding, kidney failure, and loss of limb as well as the alternative of continued medical therapy, stress testing or bypass surgery were discussed with the patient and any present family members and the patient wishes to proceed with cardiac cath and stenting. The patient and family had opportunity to discuss this with us. Written material including informed consent was given out. Brad Johnston MD Cardiology:Has good distal pulses so I do not think it is vascular based Brad Johnston MD Cardiology Brad Johnston MD Cardiology:Most likely due to [place] PD. Last echo looked fine Brad Johnston MD Cardiology Brad Johnston MD Cardiology Brad Johnston MD Cardiology Brad Johnston MD Cardiology Brad Johnston MD Cardiology Brad Johnston MD Cardiology Brad Johnston MD Cardiology Brad Johnston MD Cardiology:In the fa ce of a normal echo and a benign monitor, there is no reason to worry, and she has a good prognosis. Brad Johnston MD Cardiology: C /o random chest pain 3-4x per week. It lasts for 15 minutes then resolves. We'll check an echo and regadenoson stress test. Brad Johnston MD Cardiology: S hafsa she complains of palpitations, we'll have her wear a moniotr for 48 hours. Brad Johnston MD Cardiology Brad Johnston MD Cardiology: A s above. Brad Johnston MD Cardiology follow up :likely secondary to COPD and hx of tobacco abuse Brad Johnston MD Cardiology follow up :no further recurrence Brad Johnston MD Cardiology hospital follow up:has resolved. She has a negative nuclear stress test. This is unlikely to be cardiac in nature. Brad Johnston MD Cardiology hospital follow up:Wi ll check echo and PFTs. Brad Johnston MD Date Name 6 minute walk test CBC (INCLUDES DIFF/P LT) PROTHROMBIN TIME WIT H INR LIPID PANEL CBC (INCLUDES DIFF/P LT) BASIC METABOLIC PANE L W/EGFR DLCO - 01948 FRC - 46095 FVC - 34898 Complete Echo Holter Monitor 48 hr Stress Regadenoson Complete Echo Complete Echo DLCO - 50990 FRC - 53563 FVC - 22517 HISTORY OF PROCEDURES Procedure Date Procedure Name Provider Procedure Notes S tatus Complex e/m visit add on Brad Johnston MD completed EKG Brad Johnston MD completed Complex e/m visit add on Brad Johnston MD completed 6 minute walk test Brad Johnston MD c ompleted EKG Brad Johnston MD completed EKG Brad Johnston MD completed
--- OUTSIDE RECORDS SUMMARY | 2024-06-04 15:43 | XMS_ITS | Encounter Summary ---
Author Organization [facility] Address [address] [place] [address] Phone Care Team Providers Care Rn Relief Charge Name Role Phone Christofer Merrill MD Primary Care Provider Bro Cedeño MD Primary Care Provider [phone] Encounter Details Date Type Department Care Team (Late st Contact Info) Description 02/26/2021 Orders Only [facility] PMR [phone] Scanning, Provider Social History Tobacco Use Types Packs/Day Years Used Date Smoking Tobacco: Former Cigarettes 1.5 48 1 968 - 2016 Smokeless Tobacco: Current Comments:patient states she vapes Alcohol Use Standard Drinks/Week Comments Not Currently 0 (1 standard drink = 0.6 oz pur e alcohol) PHQ-2 Answer Date Recorded PHQ-2 Score 0 11/02/2018 Comments Unknown Sex and Gender Information Value Date Recorded Sex Assigned at Not on file 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 Gender Identity Not on file Sexual Orientation Not on file documented as of this encounter Plan of Treatment Not on file documented as of this encounter Procedures Procedure Name Priority Date/Time Associated Diagnosis Comments SCAN - RADIOLOGY/IMAGING 02/26/2021 documented in this encounter Results * SCAN - RADIOLOGY/IMAGING (02/26/2021) Anatomical Region Laterality Modality Other us Provider Scanning Final Result documented in this encounter Visit Diagnoses Not on filedocumented in this encounter Care Teams Rn Relief Charge Relationship Specialty Start Date End Date Christofer Merrill MD PCP - General Internal Medicine 12/22/17 01/25/23 Bro Cedeño MD [address] [place] [address] PCP - General Internal Medicine 02/05/24 documented as of this encounter
--- OUTSIDE RECORDS SUMMARY | 2024-06-04 15:43 | XMS_ITS | Clinical Summary ---
Author Organization [facility] Address [facility] [place] [address] Care Team Providers Care Fiber Technician Name Role Phone Unavailable Primary Care Provider Unavailabl e Social History Tobacco Use Types Packs/Day Years Used Date Smoking Tobacco: Never Assessed Comments Unknown Sex and Gender Information Value Date Recorded Sex Assigned at Not on file Legal Sex Female 7:35 AM CDT Gender Identity Not on file Sexual Orientation Not on file Plan of Treatment Health Maintenance Due Date Last Done Comments Colorectal Cancer Screening Colonoscopy (10 Years) 1956 Hepatitis C 1974 DTaP, Tdap and Td Vaccines ( 1 - Tdap) 09/10/1975 Mammogram Screening 1996 Zoster Vaccines (1 of 2) 2006 Dexa Scan (General) 2021 Pneumococcal Vaccine: 65+ Ye ars (1 of 1 - PCV) 2021 COVID-19 Vaccine ( - 2023-2 5 season) 2023 Influenza Adult (#1) 2023 RSV Immunization or 60+ Years (1 - 1-dose 75+ series) 09/10/2031 Meningococcal B Vaccine Aged Out No l onger eligible based on patient's age to complete this topic Meningococcal Vaccine Aged Out No nyasia cindy eligible based on patient's age to complete this topic RSV Immunizations Under 20 Months Aged Out No longer eligible based on patient's age to complete this topic
--- OUTSIDE RECORDS SUMMARY | 2024-06-04 15:43 | XMS_ITS | Clinical Summary ---
Author Organization [facility] Address [address] [place] [id number] Care Team Providers Care Supervisor Poultry Processing Name Role Phone Bro Cedeño MD Primary Care Provider [phone] Allergies Active Allergy Reactions Criticality Noted Date Comments Codeine Itching,Nausea only High 12/12/2011 Moxifloxacin Rash Medium 08/09/[address] (CYMBALTA) 60 mg capsule Active cholecalciferol (VITAMIN D-3) [...] 10 mg by mouth as needed 11/04/19 22 Active rOPINIRole (REQUIP) 1 mg tablet Active tiZANidine (ZANAFLEX) 4 mg tablet 01/05/20 22 Active tocilizumab 162 mg/0.9 mL pen injector Inject 162 mg under the skin once a week 3.6 mL 5 02/12/20 Active Additional Information Patient not taking.Reported on 02/05/2024 meloxicam (MOBIC) 15 mg tablet Take one tablet by mouth once daily; do not exceed 1 tablet per 24 hours 30 tablet 02/25/20 22 Active Additional Information Patient not taking.Reported on 12/06/2022 methylPREDNISolo ne (MEDROL DOSEPACK) 4 mg Dosepack Take as directed on package 1 packet 03/02/20 22 Active Additional Information Patient not taking.Reported on [...] for 30 minutes. Active ranitidine HCl (ACID VARITYPIST, RANITIDINE, ORAL) 300 mg Active methadone (DOLOPHINE) [...] BY MOUTH FOUR TIMES DAILY NEEDED 09/13/19 23 Active tiotropium bromide (SPIRIVA RESPIMAT) 2.5 mcg/actuation [...] into each nostril daily 1 each 12/16/19 23 Active albuterol HFA (PROVENTIL HFA,VENTOLIN HFA,PROAIR HFA) 90 mcg/actuation inhaler 2 puffs every 4 (four) hours as needed 12/24/19 23 Active amoxicillin (AMOXIL) 875 mg tablet Take [...] capsule every day by oral route. 08/09/19 15 Active simvastatin (ZOCOR) 20 mg tablet Take 1 tablet every day by oral route. 08/09/19 15 Active furosemide (LASIX) 20 mg tablet TAKE 1 TABLET BY MOUTH EVERY DAY FOR 7 DAYS 01/28/20 23 Active hylan g-f 20 (Synvisc-One) 48 mg/6 [...] PLEASE SEE ATTACHED FOR DETAILED DIRECTIONS 12/27/19 Active halobetasol (ULTRAVATE) 0.05 % cream Active [...] months. Assessment & Plan (02/23/2018 10:32 AM SALES PROGRAM COORDINATOR): A serum TSH is within normal limits. [...] nodules Assessment & Plan (02/22/2018 8:17 AM SALES PROGRAM COORDINATOR): Chest CT on February 07, 2018 revealed: 1. Localized Bronchiectasis, 2. Ground-glass opacity in the superior segment of the right lower lobe Unchanged. Follow-up chest CT has already been ordered. Assessment & Plan (01/31/2018 5:24 PM SALES PROGRAM COORDINATOR): Follow-up chest CT on February 07, 2018 has shown: 1. Focus of scarring with localized bronchiectasis, linear scarring and very little groundglass opacity in the superior segment of right lower lobe; not significantly changed since 08/04/2017. 2. Old T9 compression fracture. Follow-up chest CT was arranged in 8 months. WILVER (obstructive sleep apnea) 01/31/2018 Assessment & Plan (01/31/2018 5:23 PM SALES PROGRAM COORDINATOR): The patient has many clinical features of [...] patient. Assessment & Plan (02/22/2018 8:17 AM SALES PROGRAM COORDINATOR): Her BMI is 25.96kg/m2. No significant change in her weight since 8 months ago. Assessment & Plan (01/31/2018 5:21 PM SALES PROGRAM COORDINATOR): BMI is 26.50 kg/m2. She states that she has gained about 18 lb over the past 1.5 year. Chronic fatigue 01/31/2018 Assessment & Plan (02/22/2018 8:20 AM SALES PROGRAM COORDINATOR): Extensive workup for fatigue has not shown any abnormal findings. Free T4 is borderline and we will repeat the test in 3 months. Etiology of chronic fatigue could be multiple problems including: Fibromyalgia, poorly-controlled rheumatoid arthritis and polypharmacy. Assessment & Plan (01/31/2018 5:36 PM SALES PROGRAM COORDINATOR): Patient's chronic fatigue could be due to [...] demonstrated. Assessment & Plan (02/22/2018 8:15 AM SALES PROGRAM COORDINATOR): The etiology of shortness of Breath is multifactorial Including emphysema, airway hyperreactivity and bronchiolitis. Today she reports moderate improvement in shortness of breath. She was advised to continue with Stiolto and albuterol inhaler as needed. Assessment & Plan (01/31/2018 5:30 PM SALES PROGRAM COORDINATOR): Eighty G of exertional shortness of breath [...] shot. Assessment & Plan (02/22/2018 8:13 AM SALES PROGRAM COORDINATOR): Pulmonary function testing and chest CT findings [...] vaccine. Assessment & Plan (01/31/2018 5:40 PM SALES PROGRAM COORDINATOR): CT chest has shown eczematous changes and [...] needed. Assessment & Plan (02/23/2018 10:31 AM SALES PROGRAM COORDINATOR): Chronic fatigue could be due to rheumatoid arthritis. She was on combination of methotrexate and leflunomide in the past however currently she does not take any medicine. Her air hose coupler started her on Humira a while ago but she has not started it yet. Assessment & Plan (01/31/2018 5:27 PM SALES PROGRAM COORDINATOR): Symptoms well controlled. We will continue with current rheumatoid arthritis medications. 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 Cervical spondylosis without myelopathy 12/13/19 12 Encounter for preventive health examination 04/2011 Resolved Problems Problem Noted Date Diagnosed Date Resolved Date Nausea and vomiting 12/14/2021 01/11/20 23 Encounters Date Type Department Care Team Description 03/28/2024 2:00 PM SALES PROGRAM COORDINATOR Infusion [facility] [address] [place] [address] [address] [place] [phone] Age-related osteoporosis without current pathological fracture (Primary Dx) 03/26/2024 Telephone [facility] [address] [place] [phone] Britt Luke RN 03/15/2024 Orders Only [facility] [address] [place] [address] [address] [place] [phone] Lata Kwon, SANDRA Age-related osteoporosis without current pathological fracture (Primary Dx) from Last 3 Months Surgical History Surgery Date Site/Laterality Comments CHOLECYSTECTOMY BUNIONECTOMY CERVICAL BIOPSY W/ LOOP ELECTRODE EXCISION DILATION AND CURETTAGE OF UTERUS Medical History Medical History Date Comments Spinal stenosis Rheumatoid arthritis (HCC) Fibromyalgia COPD (chronic obstructive pulmonary disease) (HC C) Emphysema of lung (HCC) Asthma Lung nodule GERD (gastroesophageal reflux disease) Hypothyroid Low vitamin B12 level Vitamin D deficiency Anxiety Depression Anemia Family History Medical History Relation Name Comments No Known Problems Father Parkinsonism Mother Cancer Sister 1 Family history of malignant neoplasm - (Added by TW Conv) Rheum arthritis Sister 2 Family histo ry of rheumatoid arthritis - (Added by TW Conv) Broken bones Neg Hx Hip fracture Neg Hx Kyphosis Neg Hx Osteoporosis Neg Hx Scoliosis Neg Hx Relation Name Status Comments Father Mother Sister 1 Sister 2 Social History Tobacco Use Types Packs/Day Years [...] on file Legal Sex Female 6:43 PM SALES PROGRAM COORDINATOR Gender Identity Not on file Sexual Orientation Not on file Obstetrics History Last Filed Vital Signs Vital Sign Reading Time Taken Comments Blood Pressure 140/74 03/28/2024 1:55 PM SALES PROGRAM COORDINATOR Pulse 104 03/28/2024 1:56 PM SALES PROGRAM COORDINATOR Temperature 36.3 C (97.3 F) 03/28/2024 1:55 PM SALES PROGRAM COORDINATOR Respiratory Rate 18 02/15/2023 1:53 PM SALES PROGRAM COORDINATOR Oxygen Saturation 98% 03/28/2024 1:56 PM SALES PROGRAM COORDINATOR Inhaled Oxygen Concentration - - Weight 61.7 kg (136 lb) 03/28/2024 1:55 PM SALES PROGRAM COORDINATOR Height 152.4 cm (5') 02/05/2024 2:22 PM SALES PROGRAM COORDINATOR Body Mass Index 26.56 02/05/2024 2:22 PM SALES PROGRAM COORDINATOR Plan of Treatment Health Maintenance Due Date Last Done Comments Breast Cancer Screening-Mammogram 1955 Colon Cancer Screening-Colonoscopy 1955 Hepatitis B Screening 1974 Pneumococcal vaccine 65+ (1 of 2 - PCV) 09/10/1975 Zoster Vaccine (1 of 2) 09/10/1975 Depression Screening 09/11/2019 09/10/2018, 09/11/19 19 Well Visit 65+ 2021 Fall Risk Assessment 04/05/2023 04/05/2022, 04/13/2021, 09/10/2018 Influenza Vaccine (#1) 2023 , 12/11/2017, 12/06/2016, Additional history exists Osteoporosis Screening-Bone Density Scan 02/04/2026 02/05/2024 DTaP/Tdap/Td Vaccine (3 - Td or Tdap) 11/15/2033 11/16/2023, 09/27/2015 Hepatitis C Screening Completed 01/25/2021 Procedures Procedure Name Priority Date/Time Associated Diagnosis Comments DEXA TBS AXIAL SKELETON BONE DENSITY 1 OR MORE SITES Schedule Routine, Read Routine (OP Routine) 02/05/2024 2:34 PM SALES PROGRAM COORDINATOR Age-related osteoporosis without current pathological fracture HEPATITIS PANEL, ACUTE Routine 01/25/2021 2:40 PM SALES PROGRAM COORDINATOR Rheumatoid arthritis, involving unspecified site, unspecified whether rheumatoid factor present (HCC) from Last 3 Months or Most Recently Relevant to Health Maintenance Results * Dexa TBS Axial Skeleton Bone Density 1 or more sites (02/05/2024 2:34 PM SALES PROGRAM COORDINATOR) Anatomical Region Laterality Modality Wrist, Body N/A Radiographic Robyn ging Narrative 02/05/2024 2:50 PM SALES PROGRAM COORDINATOR Patient Name: Alta Vargas Date of : 1955 Date of scan: 02/05/2024 Bone mineral density was performed on a HoloScanadu Discovery Densitometer. Based on machine cross-calibration and [...] mineral density scan were prepared by Elida Doss) KANIKA who is accredited by the International Society of Clinical Densitometry. The overall patient assessment and scan interpretation were performed by Figueroa Hickey M.D. who is certified by the International Society of Clinical Densitometry. [id number] Figueroa Hickey MD IMG DXA PROCEDURES Final Re sult * Hepatitis panel, acute (01/25/2021 2:40 PM SALES PROGRAM COORDINATOR) Hep A IgM Nonreactive Nonreactive [facility] Comment: Interpretive Data: If Hep A IgM Ab is reported as Equivocal, a new sample should be drawn in two weeks for testing. Current interpretive data was last revised on 19. Hep B core IgM Nonreactive Nonreactive [facility] Comment: Interpretive Data If HepB Core IgM Ab is reported as Equivocal, a new sample should be drawn in two weeks for testing. Current interpretive data was last revised on 19. Hep C Ab Nonreactive Nonreactive [facility] Comment:Antibodies to HCV no t detected. Does NOT exclude the possibility of recent exposure to HCV. HepBsAg Nonreactive Nonreactive [facility] Blood 01/25/2021 2:40 PM SALES PROGRAM COORDINATOR 01/25/2021 7:31 PM SALES PROGRAM COORDINATOR us Apolonia Wan MD LAB MICROBIOLOGY - GENERAL ORD ERABLES Edited Result - Final [facility] Department [place] [address] from Last 3 Months or Most Recently Relevant to Health Maintenance Insurance [facility] MEDICARE ADVANTAGE IDPA [facility] MEDICARE ADVANTAGE Care Teams Supervisor Poultry Processing Relationship Specialty Start Date End Date Bro Cedeño MD [address] [place] [address] PCP - General Internal Medicine 02/05/24
== END 2024-06-04 13:33 | disposition home or self-care (01) ==
LOC: ANHAUDIO 13:32
PROVIDERS: PCP Internal Medicine; Visit Provider Otolaryngology
DX: H65.91 Unspecified nonsuppurative otitis media, right ear (principal); H90.3 Sensorineural hearing loss, bilateral
CPT/HCPCS: 92557; 92567

== ENCOUNTER 2024-08-07 14:49 | Outpatient (CLI) | payer MEDICARE, MEDICAID, SELFPAY ==
--- OUTSIDE RECORDS SUMMARY | 2024-08-07 14:53 | XMS_ITS | Encounter Summary ---
Author Organization [facility] Address [address] [place] [address] Care Team Providers Care Rn Flight Name Role Phone Christofer Merrill MD Primary Care Provider [phone] Taurus Gleason DC Unavailable Yvonne Rae MD Unavailable Encounter Details Date Type Department Care Team (Late st Contact Info) Description 12/13/2023 Lab Requisition [facility] [address] [place] [address] Fili Valentin MD [address] [address] Anemia, unspecified Social History Tobacco Use Types Packs/Day Years Used Date Smoking Tobacco: Former Cigarettes 1 40 1 976 - 2016 Smokeless Tobacco: Never Comments:States she vapes no w Alcohol Use Standard Drinks/Week Comments No 0 (1 standard drink = 0.6 oz pur e alcohol) Comments No Sex and Gender Information Value Date Recorded Sex Assigned at Not on file Legal Sex Female 1:47 PM CDT Gender Identity Not on file Sexual Orientation Not on file Occupation Industry Job Start Date Job End Date DISABLED Not on file Not on file Not on file documented as of this encounter Plan of Treatment Not on file documented as of this encounter Procedures Procedure Name Priority Date/Time Associated Diagnosis Comments CBC W/O DIFFERENTIAL STAT 12/13/2023 12:06 PM CDT Anemia, unspecified documented in this encounter Results * (ABNORMAL) CBC W/O DIFFERENTIAL (12/13/2023 12:06 PM CDT) WBC 14.7(H) 4.0 - 10.7 x10E9/L 12/13/2023 2:06 PM CDT [facility] RBC Count 4.13 3.90 - 5.20 x10E12/L 12/13/2023 2:06 PM CDT [facility] Hemoglobin 9.9(L) 11.9 - 15.8 g/dL 12/13/2023 2:06 PM CDT [facility] Hematocrit 33.3(L) 34.8 - 46.1 % 12/13/2023 2:06 PM CDT [facility] MCV 80.6 80.0 - 98.0 fL 12/13/2023 2:06 PM CDT [facility] MCH 24.0(L) 26.7 - 33.6 pg 12/13/2023 2:06 PM CDT [facility] MCHC 29.7(L) 31.7 - 36.3 g/dL 12/13/2023 2:06 PM CDT [facility] RDW-CV 17.3(H) 11.3 - 14.8 % 12/13/2023 2:06 PM CDT [facility] Platelet Count 403 150 - 420 x10E9/L 12/13/2023 2:06 PM CDT [facility] MPV 8.6 7.8 - 11.4 fL 12/13/2023 2:06 PM CDT [facility] Blood BLOOD SPECIMEN / Unknown 12/13/2023 12:06 PM CDT 12/13/2023 1:56 PM CDT Fili Valentin MD LAB - HEMATOLOGY ORDERABLES Fin al Result [facility] [address] [place] [address] documented in this encounter Visit Diagnoses Diagnosis Anemia, unspecified documented in this encounter Care Teams Rn Flight Relationship Specialty Start Date End Date Christofer Merrill MD [address] [address] [address] [place] [address] PCP - General Internal Medicine 12/06/11 Taurus Gleason DC [address] [place] [address] Chiropractic 12/13/11 [place] [address] [facility] [address] [place] [address] Rheumatology 08/22/17 documented as of this encounter
--- OUTSIDE RECORDS SUMMARY | 2024-08-07 14:53 | XMS_ITS | Clinical Summary ---
Author Organization [facility] Sherwin Pina Address [address] [place] [address] Care Team Providers Care Security Analyst Name Role Phone Bro Cedeño MD Primary Care Provider [phone] Allergies Active Allergy Reactions Criticality Noted Date [...] Encounters Date Type Department Care Team Description 08/06/2024 External Device Data [facility] ABSTRACTION Provider, Abstract 07/31/2024 External Device Data [facility] ABSTRACTION Provider, Abstract 07/30/2024 External Device Data [facility] ABSTRACTION Provider, Abstract 07/25/2024 Orders Only [facility] Oncology and Hematology [facility] [address] [place] [address] Fili Valentin MD 07/24/2024 2:30 PM CDT Office Visit [facility] Oncology and Hematology [place] [address] [place] [address] Fili Valentin MD Chronic anemia (Primary Dx) 05/29/2024 External Device Data ST[facility] ABSTRACTION Provider, [...] Sign Reading Time Taken Comments Blood Pressure 136/78 07/24/2024 2:22 PM CDT Pulse 99 07/24/2024 2:22 PM CDT Temperature 36.3 C (97.4 F) 07/24/2024 2:22 PM CDT Respiratory Rate 15 07/24/2024 2:22 PM CDT Oxygen Saturation 96% 07/24/2024 2:2 2 PM CDT Inhaled Oxygen Concentration - - Weight 66 kg (145 lb 6.4 oz) 07/24/2024 2:22 PM CDT Pt stated that this is the correct weight Height 162.6 cm (5' 4) 09/25/2023 3:11 PM CDT Body Mass Index 24.96 09/25/2023 3:11 PM CDT Plan of Treatment Upcoming Encounters Date Type Department Care Team (Late st Contact Info) Description 10/31/2024 2:30 PM CDT Office Visit [facility] Oncology and Hematology - [place] [address] [facility] [address] [place] [address] Fili Valentin MD [address] [facility] [address] [place] [address] Health Maintenance Due Date Last [...] series) 2016 Lung Cancer Screening 03/10/2022 03/10/2021, 05/14/ 020 INFLUENZA VACCINE (#1) 2023 12/06/2016 OSTEOPOROSIS SCREENING 02/04/2029 02/05/2024, 2023 COLORECTAL SCREENING 12/28/2033 12/29/2023 Colorectal Cancer Screening 12/28/2033 Procedures Procedure Name Priority Date/Time Associated Diagnosis Comments CBC MIXED CELL DIFFERENTIAL Routine 07/23/2024 1:03 PM CDT CBC MIXED CELL DIFFERENTIAL Routine 07/23/2024 12:55 PM CDT CBC MIXED CELL DIFFERENTIAL Routine 07/23/2024 12:53 PM CDT CBC MIXED CELL DIFFERENTIAL Routine 07/23/2024 12:53 PM CDT CBC WITH DIFFERENTIAL Routine 07/23/2024 12:52 PM CDT BASIC METABOLIC PANEL Routine 07/23/2024 10:15 AM CDT COLONOSCOPY REPORT Routine 12/29/2023 9: 26 AM CDT from Last 3 Months or Most Recently Relevant to Health Maintenance Results * CBC MIXED CELL DIFFERENTIAL (07/23/2024 1:03 PM CDT) Only the most recent of4 resultswithin the time period is included. Blood Fili Valentin MD HEMATOLOGY ORDERABLES Final Res ult * CBC WITH DIFFERENTIAL (07/23/2024 12:52 PM CDT) Blood Fili Valentin MD HEMATOLOGY ORDERABLES Final Res ult * BASIC METABOLIC PANEL (07/23/2024 10:15 AM CDT) Blood Fili Valentin MD CHEMISTRY ORDERABLES Final Resu lt * COLONOSCOPY REPORT (12/29/2023 9:26 AM CDT) Provider Scanning GI PROCEDURE ORDERABLES Final Result from Last 3 Months or Most Recently Relevant to Health Maintenance Insurance [facility] [id number] [place] [facility] [id number] Care Teams Security Analyst Relationship Specialty Start Date End Date Bro Cedeño MD [address] [place] [phone] PCP - General Internal Medicine 03/22/24
--- OUTSIDE RECORDS SUMMARY | 2024-08-07 14:53 | XMS_ITS | Clinical Summary ---
Author Organization [facility] Address [address] [place] [address] Care Team Providers Care Cistern Room Operator Name Role Phone Christofer Merrill MD Primary Care Provider [phone] Taurus Gleason DC Unavailable Yvonne Rae MD Unavailable Source Comments [facility],non-owned Affiliates and Associated Physician Practices is amultiple site organization consisting of ambulatory clinics and hospital sitesin [place], [place], [place] and [place]. This disclosure is being madepursuant to the Care Everywhere program and may not contain all information available regarding this patient. Last updated 17.[facility] Allergies Active Allergy Reactions Criticality Noted Date Comments Codeine Itching Medium 12/12/2011 Medications * This document contains information received from the source organization and may not represent a complete record from that organization. * Be aware that medications may not be up to date on this document. Alwaysverify current medications with the patient. hydrocodone-acet aminophen (NORCO) 10-325 MG tablet Active ALPRAZolam (XANAX) 2 MG tablet 4 times daily. Activ e omeprazole (PRILOSEC) 20 MG capsule TK 1 C PO QD 7 Active albuterol HFA (VENTOLIN HFA) 108 (90 BASE) MCG/ACT inhaler INL 2 PFS PO Q 4 H 7 Active folic acid (FOLVITE) 1 MG tabletIndication s:Rheumatoid arthritis involving multiple sites with positive rheumatoid factor (HCC) Take 1 mg by mouth once daily 3 8 Active vitamin D, cholecalciferol, 2000 UNITS tabletIndication s:Rheumatoid arthritis involving multiple sites with positive rheumatoid factor (HCC) Take 2,000 Units by mouth once daily Active B Complex Vitamins (VITAMIN B COMPLEX PO)Indications:R heumatoid arthritis involving multiple sites with positive rheumatoid factor (HCC) Active TURMERIC CURCUMIN POIndications:Rh eumatoid arthritis involving multiple sites with positive rheumatoid factor (HCC) Active DULoxetine (CYMBALTA) 60 MG capsule Take 60 mg by mouth 2 times daily 4 8 Active diclofenac sodium (VOLTAREN) 1 % gel 8 Active ibuprofen (MOTRIN) 800 MG tablet ibuprofen 800 mg tablet Active fluticasone-chana nterol (BREO ELLIPTA) 100-25 MCG/INH inhalerIndicatio ns:Chronic obstructive pulmonary disease, unspecified COPD type ([facility]) Inhale 1 puff by mouth once daily Administer at the same time each day. Rinse mouth after using 1 Inhaler 4 8 Active gabapentin (NEURONTIN) 300 MG capsuleIndicatio ns:Pain in joint, multiple sites 1 tab po at night and then increase to 1 tab po twice a day in 3 weeks if no side effects 60 capsule 1 8 Active predniSONE (DELTASONE) 5 MG tablet TAKE 2 TABLETS BY MOUTH EVERY DAY 60 tablet 8 Active clotrimazole (LOTRIMIN AF) 1 % cream 2 times daily To right ear for itching 28 g 3 8 Active HUMIRA PEN 40 MG/0.8ML injection ADMINISTER 0.8 ML UNDER THE SKIN EVERY 14 DAYS 2 kit 8 Active Active Problems Problem Noted Date Diagnosed [...] Date Resolved Date Constipation 11/28/2017 12/26/2017 Immunizations Immunization Administration Dates Next Due INFLUENZA VACCINE, QUADR. [...] file Not on file Not on file Last Filed Vital Signs Vital Sign Reading Time Taken Comments Blood Pressure 177/82 03/15/2023 10:34 PM SUCTION ROLLER Pulse 86 03/15/2023 10:34 PM SUCTION ROLLER Temperature 36.8 C (98.3 F) 03/15/2023 10:34 PM SUCTION ROLLER Respiratory Rate 22 03/15/2023 10:34 PM SUCTION ROLLER Oxygen Saturation 100% 03/15/2023 10:34 PM SUCTION ROLLER Inhaled Oxygen Concentration - - Weight 61.7 kg (136 lb) 03/15/2023 2:00 PM SUCTION ROLLER Height 162.6 cm (5' 4) 03/15/2023 2:00 PM SUCTION ROLLER Body Mass Index 23.34 03/15/2023 2:00 PM SUCTION ROLLER Plan of Treatment Health Maintenance Due Date [...] 2006 COVID-19 VACCINE (1 - season) 2023 DEPRESSION SCREENING 03/13/2024 MEDICARE AWV CALENDAR YEAR 2024 INFLUENZA VACCINE (Season Ended) 2024 12/06/2016, 12/09/2015, 12/07/2014, Additional history exists Respiratory Syncytial Virus (RSV) Vaccine Pt: or [...] with a HCV Nucleic Acid Amplification test (239927). Blood BLOOD SPECIMEN / Unknown 08/22/2017 2:35 PM CDT 08/22/2017 Narrative Resulting Agency Comment [facility] [address] [facility] [phone] [place] Yvonne Rae MD LAB - CHEMISTRY ORDERABLES Final Result [facility] INSURANCE BILL [address] [place] [address] from Last 3 Months or Most Recently Relevant to Health Maintenance Insurance MANAGED MEDICARE ADV MEDICARE SELF PAY NO INSURANCE Member Subscriber Plan / Payer (Ef fective for All Dates) Name:Alicia Alta Member ID:Not on file Relation to Subscriber:Self Name:Alta Vargas Subscriber ID:Not on file Payer ID:Not on file Group ID:Not on file Type:Self Pay Address: [place], [place] Care Teams Cistern Room Operator Relationship Specialty Start Date End Date Christofer Merrill MD [address] [place] [address] [address] [place] [address] PCP - General Internal Medicine 12/06/11 Taurus Gleason DC [address] [place] [address] Chiropractic 12/13/11 [place] [address] [place] [id number] Rheumatology 08/22/17
--- OUTSIDE RECORDS SUMMARY | 2024-08-07 14:53 | XMS_ITS | Data Portability ---
Author Organization [facility] [employer], Main Office Address [address] [place] [address] Care Team Providers Care Trouble Dispatcher Name Role Phone LAMINE GOMEZ Primary Care Provider LAMINE GOMEZ Referring Provider Assessment Encounter Date Assessment Date Assessment LastModified by Organization Details LastModified Time 06/25/2024 06/25/2024 The patient has moderately severe primary osteoarthritis both knees left worse than right. We talked about treatment options today in detail she would like to try a course of oral prednisone she has taken this before this worked pretty well for her in addition to a cortisone injection. Under sterile conditions I injected the patient's left knee joint in the office with 4 cc 0.5% bupivacaine and 20 mg of Kenalog. The patient tolerated procedure well. I will see her back as needed we can do this again in 3 months if necessary if her symptoms continue I can see her back in 6 weeks we will see how she does with treatment. She voiced understanding and agreed with the above plan she will call for any further problems difficulties or questions. [email or web address] Not available 06/25/2024 10:15:17 Plan of Treatment Reminders Order Date Submit Date Provider Last Modified By Organization Details Last Modified Time Details Appointments Establish ed Patient 2024 02:15P M Kd Gregorio DPM Not available Not available Not available Any 15 2024 01:15P Savannah Gomez MD Not available Not available Not available Lab rapid strep group A, throat 2024 0514/ 025 [facility] [address], [facility] [place], [address], 07/24/2024 14:35:31 Referral None recorded. Procedures injection /aspirati on joint/bur sa (PROC) 2024 025 [email or web address] In-Office Order, Internal Use Only DO Not Attach Compendium DO Not Attach Compendium, Do Not Delete/merge, [id number] 06/25/2024 09:52:36 Surgeries None recorded. Imaging None recorded. Medication Orders bupivacai ne HCl 0.5 % (5 mg/mL) injection solution 2024 025 [email or web address] [facility]/Pharmacy #[id number], [address] [place], [address], 06/25/2024 09:53:28 Kenalog 10 mg/mL suspensio n for injection 2024 025 [email or web address] [facility]/Pharmacy #[id number], [address] [place], [address], 06/25/2024 09:53:28 prednison e 10 mg tablets in a dose pack 2024 025 [email or web address] [facility]/Pharmacy #[id number], [address] [place], [address], 07/04/2024 12:48:27 Saline Nasal 0.65 % spray aerosol 2024 025 ATHENAFAX [facility]/Pharmacy #[id number], [address] [place], [address], 06/24/2024 15:35:20 amoxicill in 500 mg capsule 2024 025 [email or web address]/Pharmacy #[id number], [address] [place], [address], 06/20/2024 15:35:27 furosemid e 20 mg tablet 2024 025 JOAQUNIA [facility]/Pharmacy #[id number], [address] [place], [address], 05/02/2024 11:20:51 amitripty line 25 mg tablet 2023 024 [email or web address] [facility] #[id number], [address], [place], [address], 07/04/2024 12:45:46 Patient TargetsNo targets recorded. Patient Instructions Encounter Date Encounter Id Patient Instructions Last Modified By Organization Details Last Modified Time 07/24/2024 [id number] Use salt water gargles twice daily. Continue to take Otc allergy tablet. Increase water/fluids at this time. [email or web address] Not available 07/24/2024 11:20:25 Reason for Referral None Reported. Results Created Date Observation Date Name Description Value Unit Range Abnormal Flag Note LastModifiedBy Organization Detail LastModifiedTime 07/25/1907/24/2024 rapid strep group A, throa t STREP A negati ve Not Available [facility] [address] [place], [address], 07/24/2024 09:34:10 01/23/20 elect romyo gram + nerve condu ction study No observ ation record ed. [email or web address] [facility] ([facility]) [address], [place], [address], 01/23/2024 11:56:57 01/24/2007/10/2023 DEXA, axial skele ton [...] Time Numbness and tingling sensation of skin 63216896405 2 Active 2021 Not Available [facility] 3 01:16:23 Irritable bowel syndrome 74105569 Completed Not Available [facility] 3 01:16:23 Lumbar radiculop athy 690644202 Active 2016 Not Available [facility] 3 01:16:24 Chronic obstructi ve pulmonary disease 91084261 Active 2019 Not Available [facility] 3 01:16:24 Urinary incontine nce 061726524 Active Not Available [facility] 3 01:16:24 Nausea and vomiting 18191492 Active 2021 Not Available [facility] 3 01:16:24 Asthma 463897843 Completed 201708/12/2019 Not Available [facility] 3 01:16:24 Anxiety disorder 110394255 Active Lamine Gomez MD [address], [place], [address] , [employer] 4 15:11:34 Pain of joint of hand 998360648 Active Not Available [facility] 3 01:16:24 Fibromyal justin 541754833 Active Not Available [facility] 3 01:16:24 Lumbar sprain 373939994 Completed Not Available [facility] 3 01:16:24 Gastric reflux 652936343 Completed 201608/12/2019 Not Available [facility] 3 01:16:25 Gastroeso phageal reflux disease 061090192 Active 2019 Lamine Gomez MD [address], [place], [address] , [employer] 4 14:34:15 Pure hyperchol esterolem ia 047240232 Active Not Available [facility] 3 01:16:25 Anemia 045785988 Active 2022 Lamine Gomez MD [address], [place], [address] , [employer] 4 14:33:51 Low back pain 452764653 Active 2020 Not Available [facility] 3 01:16:25 Chest pain 44748033 Completed 201712/03/2018 Not Available [facility] 3 01:16:25 Pain of right wrist 72854593802 9100 Active 2020 Not Available [facility] 3 01:16:25 Osteoarth ritis of left knee joint 93497767968 9109 Active 2022 Not Available [facility] 3 01:16:26 Osteoarth ritis of right knee joint 09552771796 9100 Active 2022 Not Available [facility] 3 01:16:26 Restless legs 89225590 Active Lamine Gomez MD [address], [place], [address] , [employer] 4 14:36:46 Vitamin D deficienc y 20693176 Active 2022 Lamine Gomez MD [address], [place], [address] , [employer] 4 14:35:29 Depressiv e disorder 48329478 Active Not Available [facility] 3 01:16:26 Chronic pain syndrome 470858540 Active 2017 Lamine Gomez MD [address], [place], [address] , [employer] 4 15:11:54 Hypothyro idism 08772884 Active 2020 Lamine Gomez MD [address], [place], [address] , [employer] [facility] 4 15:12:11 Trigger finger Active Not Available [facility] 3 01:16:27 Swelling of lower leg 157472011 Active 2022 Not Available [facility] 3 01:16:27 Pain of bilateral knee joints 18673951406 4104 Active 2022 Not Available [facility] 3 01:16:27 Anxiety 57977452 Completed Not Available [facility] 3 01:16:28 Cervical radiculop athy 56099007 Active Not Available [facility] 3 01:16:28 Carpal tunnel syndrome 44561681 Active Lamine Gomez MD [address], [place], [address] , [employer] 4 15:11:37 Muscle pain 98176532 Active 2021 Not Available [employer] 3 01:16:28 Urethral caruncle 2841419 Active Not Available [facility] 3 01:16:28 Rheumatoi d arthritis 59040068 Active 2018 Lamine Gomez MD [address], [place], [address] , [employer] 4 15:12:22 Prediabet es 086697387 Active 2021 Lamine Gomez MD [address], [place], [address] , [employer] 4 14:35:00 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 Not Available [facility] 3 01:16:29 COVID-19 380216475 Active 2021 Not Available [facility] 3 01:16:29 Postchole cystectom y syndrome 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 Active 2016 Not Available [facility] 3 01:16:29 Paresthes ia of upper limb 43187058 Active 2021 Not Available [facility] 3 01:16:30 Iron deficienc y anemia 11313269 Active 2022 Lamine Gomez MD [address], [place], [address] , [employer] 4 14:36:36 Focal motor weakness 150171579 Active 2022 Ana Paula Urban MD [address], [place], [address] , [facility] 3 15:20:36 Abnormal uterine bleeding 07205780551 100 Active 2022 Ana Paula Urban MD [address], [place], [address] , [place] [facility] 3 15:21:20 Effusion of joint of left knee 32454282698 9105 Active 2022 LORIE Villanueva [address], [place], [address] , [facility] 3 10:39:00 MRI of head abnormal 39368112161 9107 Active 2022 Ana Paula Urban MD [address], [place], [address] , [facility] 3 22:56:04 Bilateral wrist pain 08275918069 701284 Active 2022 Joan Werner SHELL TRIM OPERATOR null, [place] [facility] 3 10:01:16 Bilateral carpal tunnel syndrome 19954184253 937087 Active 2022 LORIE Villanueva [address], [place], [address] , [facility] 3 11:32:59 Pain of bilateral hands 84363150531 984824 Active 2022 Joan Werner SHELL TRIM OPERATOR null, [facility] 3 11:35:45 Postmenop ausal osteoporo sis 595616414 Active 2022 Lamine Gomez MD [address], [place], [address] , [facility] 4 14:35:50 Pain of right knee joint 60450175111 4100 Active 2023 Cecilia Givens RMA null, [place] [facility] 4 12:33:15 Pain of left knee joint 11188607878 4107 Active 2023 JENNIFER Alvarado null, [place] [facility] 4 12:33:29 Bilateral osteoarth ritis of knees 55411426669 9107 Active 2023 Lamine Gomez MD [address], [place], [address] , [employer] [facility] [email or web address] [facility] 4 14:34:09 Overactiv e urinary bladder 221965660 Active 2023 Lamine Gomez MD [address], [place], [address] , [employer] [facility] [email or web address] 4 14:37:06 Nodule of lung 813535543 Active 2023 Lamine Gomez MD [address], [place], [address] , [employer] [facility] [email or web address] [facility] [employer] 4 15:16:23 Osteoporo sis 00892760 Active 2023 Lamine Gomez MD [address], [place], [address] , [employer] 4 15:18:14 Rib pain 120629840 Active 2023 Adelia Swift MA null, [employer] [facility] [employer] [facility] 4 14:27:46 Pain of bilateral knee regions 46758568557 4102 Active 2023 Lamine Gomez MD [address], [place], [address] , [employer] [facility] [employer] [facility] 4 10:04:14 Neuropath y 261851054 Active 2023 Lamine Gomez MD [address], [place], [address] , [facility] [email or web address] [facility] 4 10:04:39 Edema of lower extremity 630662498 Active 2023 Kassy Gore NP [address], [place], [address] , [place] [facility] [place] [facility] 4 15:29:24 Pulmonary embolism 77743203 Active 2023 Lamine Gomez MD [address], [place], [address] , [facility] [place] [facility] 4 14:58:28 Diarrhea 28568424 Active 2023 Lamine Gomez MD [address], [place], [address] , [facility] [place] [facility] 4 14:26:07 Dehydrati on 29800777 Active 2023 Lamine Gomez MD [address], [place], [address] , [place] [facility] [place] [facility] 4 14:27:26 Pneumonia 131713254 Active 2023 Lamine Gomez MD [address], [place], [address] , [place] [facility] [place] [facility] 4 15:47:38 Hyponatre valerie 46507092 Active 2023 Lamine Gomez MD [address], [place], [address] , [place] [facility] [place] [facility] 4 15:47:49 Vaginitis 64435219 Active 2023 Lamine Gomez MD [address], [place], [address] , [place] [facility] [place] [facility] 4 15:49:05 Chest wall pain 625587490 Active 2023 Lamine Gomez MD [address], [place], [address] , [place] [facility] [place] [facility] 4 15:38:50 Bronchiti s 40003869 Active 2023 Tona mckee, [place] [facility] [place] [facility] 4 10:54:00 Ear problem 063653575 Active 2023 Tona mckee, [place] [facility] [place] [facility] 4 10:54:22 Headache 38767751 Active 2023 Tona Carson null, [facility] 4 10:54:46 Heartburn 86711276 Active 2023 Tona Carson null, [facility] 4 10:55:24 Disorder of lung 35728892 Active 2023 Tona Carson null, [facility] 4 10:55:37 Disorder of thyroid gland 34627726 Active 2023 Tona Carson null, [facility] 4 10:56:19 Idiopathi c periphera l neuropath y 23779196 Active 2023 Kd Gregorio DPM [address], [place], [address] , [facility] 4 11:00:14 Muscle weakness of limb 110935119 Active 2023 Kd Gregorio DPM [address], [place], [address] , [facility] 4 11:01:00 Bunion 698798904 Active 2023 Kd Gregorio DPM [address], [place], [address] , [facility] 4 11:01:06 Hammer toe 714075424 Active 2023 Kd Gregorio DPM [address], [place], [address] , [facility] 4 11:02:01 Laceratio n of skin 301179946 Active 2023 Lamine Gomez MD [address], [place], [address] , [facility] 4 15:52:10 Right flank pain 618806287 Active 2023 Adelia Swift MA null, [facility] MEDICAL [facility] 4 11:57:01 Urinary symptoms 237173551 Active 2023 Precious Bryan LPN null, [facility] 4 13:57:58 Acute right otitis media 986778553 Active 2024 Lamine Gomez MD [address], [place], [address] , [facility] 5 11:30:01 Upper respirato ry infection 56989947 Active 2024 Adelia Swift MA null, [facility] 5 12:20:14 Cough 11994617 Active 2024 Adelia Swift MA null, [facility] 5 12:20:22 Nasal mucosa dry 88498439 Active 2024 KATY Valladares [address], [place], [address] , [facility] 5 15:29:07 Allergic rhinitis 72679100 Active 2024 Adelia Swift MA null, [facility] 5 17:13:11 Pain in throat 994563633 Active 2024 KATY Valladares [address], [place], [address] , [facility] 5 09:34:19 Notes:Some problems listed i n Documents: #[id number], #[id number], #[id number] could not be added to this patient's chart. Please review these documents and add these problems to the patient's chart manually as needed. Problem Notes None recorded. Procedures Surgical History Date Name Laterality Status Provider Name and Address Organization Details Recorded Time 11/08/19 23 Ortho - Cortisone Injection completed Kolton Gutierrez MD [address], [place], [address], [facility] 11/07/2022 10:03:10 06/24/19 21 Date of Last Colonoscopy completed Not Available [facility] 05/11/2022 01:05:55 08/14/19 20 Most Recent Bone Density completed Not Available [facility] 05/11/2022 01:05:56 Cataract Surgery completed Not Available [facility] 05/11/2022 01:06:02 Knee Surgery completed Not Available [facility] 05/11/2022 01:06:02 ligation of bilateral fallopian tubes completed Not Available [facility] 05/11/2022 01:06:02 Cholecystectomy completed Not Available [facility] 05/11/2022 01:06:02 Gallbladder Surgery completed Not Available [facility] 05/11/2022 01:06:02 Imaging Results None recorded. Procedure Notes None recorded. Medical Equipment None Reported. Allergies Allergen ID Allergen Name Allergen Category Reaction Reaction Severity Criticality Documentation Date Start Date Code Code System Note Provider Name and Address Organization Details Recorded Time 2470 Avelox medicatio n rash Not available Not available 05/11/2022 91091 6 RxNorm Not Available [facility] 3 01:30:21 2471 codeine medicatio n nausea Not available Not available 05/11/2022 2670 RxNorm Cecilia Givens, JENNIFER mckee, [place] [facility] [place] [facility] 4 12:28:49 Medications Name Sig Start Date Stop Date Status Note LastModified by Organization Details LastModified Time Pravachol 40 mg tablet one tablet at bedtime active Not Available Not Available No t Available cyclobenz aprine 10 mg tablet TAKE 1 TABLET BY MOUTH THREE TIMES A DAY FOR MUSCLE SPASMS active Not Available Not Available No t Available amoxicill in 500 mg capsule TAKE 1 CAPSULE BY MOUTH THREE TIMES A DAY FOR 7 DAYS 06/20 completed Not Available Not Available Not Available pramipexo le 1 mg tablet TAKE ONE TABLET BY MOUTH ONCE DAILY AT BEDTIME. active Not Available Not Available No t Available methocarb lucrecia 500 mg tablet TAKE 2 TABLETS BY MOUTH FOUR TIMES DAILY NEEDED 06/25 completed Not Available Not Available Not Available clotrimaz ole 10 mg milan TAKE [...] Available prednison e 10 mg tablet TAKE 1 TABLET BY MOUTH TWICE A DAY X10 DAYS active Not Available Not Available No t Available gabapenti n 600 mg tablet PLEASE SEE ATTACHED FOR DETAILED DIRECTIO NS 06/25 completed Not Available Not Available Not Available doxycycli ne hyclate 100 mg capsule 06/20 completed Not Available Not Available Not Available [...] completed Not Available Not Available Not Available Saline Mist 0.65 % nasal spray aerosol INSTILL 2 SPRAYS INTO EACH NOSTRIL EVERY DAY active Not Available Not Available No t Available albuterol sulfate 2.5 mg/3 mL (0.083 [...] ibuprofen 800 mg tablet TAKE 1 TABLET (800 MG) BY MOUTH UP TO 2 TIMES PER DAY WITH FOOD IF NEEDED FOR PAIN active Not Available Not [...] ONE TABLET BY MOUTH THREE TIMES DAILY 06/25 completed Not Available Not Available Not Available fluconazo le 150 mg tablet TAKE 1 TABLET BY MOUTH ONCE 11/13 completed Not Available Not Available Not Available benzonata te 200 mg capsule Take 1 capsule 3 times a day by oral route as needed for cough 06/20 completed per 06/04/24 patient case / ds Not [...] NOT EXCEED 1 TABLET PER 24 HOURS 06/25 completed Not Available Not Available Not Available sucralfat e 1 gram tablet TAKE 1 GRAM BY MOUTH BEFORE MEALS AND AT BEDTIME 06/25 completed Not Available Not Available Not Available ondansetr on HCl 4 mg tablet TAKE 1 TABLET BY MOUTH EVERY 8 HOURS NEEDED 07/04 completed Not Available Not Available Not Available bupivacai ne HCl 0.5 % (5 mg/mL) injection solution Take 4 mL by injectio n route. 2024 active Not Available Not Available Not Avai lable prednison e 20 mg tablet TAKE 2 TABLETS BY MOUTH ONCE DAILY 06/25 completed Not Available Not Available Not Available alendrona te 70 mg tablet TAKE 1 TABLET BY MOUTH EVERY WEEK 07/13 completed Not Available Not Available Not Available gabapenti n 400 mg capsule Take 1 capsule every day by oral route. 10/22 completed Not Available Not Available Not Available prednison e 5 mg tablet TAKE 1-3 TABLETS DAILY NEEDED 06/25 completed Not Available Not Available Not Available sulfasala zine 500 mg tablet,de layed [...] TAKE 2 TABLETS BY MOUTH EVERY DAY 06/25 completed Not Available Not Available Not Available amlodipin e 5 mg tablet TAKE [...] THE OTHER 1/2 AT 5AM ON 12/28 completed Not Available Not Available Not Available omeprazol e 40 mg capsule,d elayed release TAKE 1 CAPSULE BY MOUTH EVERY DAY active Not Available Not Available No t Available liothyron ine 5 mcg tablet TAKE 1 TABLET TWICE A DAY BY MOUTH AROUND THE CLOCK FOR 90 DAYS. 07/13 completed Not Available Not Available Not Available leflunomi de 20 mg tablet 02/08 completed Not Available Not Available Not Available tramadol 50 mg tablet TAKE 1-2 TABLETS BY MOUTH 3 TIMES A DAY WITH OTC TYLENOL FOR PAIN CONTROL active Not Available Not Available No t Available guaifenes in 100 mg/5 mL oral liquid TAKE 10 ORAL MILLILIT ERS NEEDED EVERY 4-6 HOURS 08/14 completed Not Available Not Available Not Available triamcino lone acetonide 0.1 % topical cream 05/24 completed Not Available Not Available Not Available Cholestyr amine Light 4 gram powder for suspensio n in a packet MIX AND DRINK 1 [...] mouth once a day for 1 day 07/04 completed Not Available Not Available Not Available cefadroxi l 500 mg capsule TAKE 1 CAPSULE BY MOUTH EVERY 12 HOURS 06/20 completed Not Available Not Available Not Available [...] Not Available famotidin e 20 mg tablet TAKE 1 TABLET BY MOUTH EVERY DAY active Not Available Not Available No t Available amitripty line 25 mg tablet TAKE 1 TABLET BY MOUTH EVERY DAY AT BEDTIME 07/04 completed ROSEMARY 05/02/24 NOV 08/29/24 ok to rf Not Available Not Available Not Available prednisol one acetate 1 % eye [...] 10 mg/mL suspensio n for injection Take 2 mL by injectio n route. 2024 active [facility]: [id number] 4-20 Not Available Not Available Not Available amitripty line 10 mg tablet TAKE 1 TABLET BY MOUTH EVERYDAY AT BEDTIME active Not Available Not Available No t Available benzonata te 100 mg capsule TAKE [...] mg tablet 1 TABLET TWICE A DAY 06/25 completed Not Available Not Available Not Available ropinirol e 2 mg tablet TAKE [...] TAKE 1 TABLET BY MOUTH EVERY DAY 06/25 completed Not Available Not Available Not Available cyanocoba madiha (vit B-12) 1,000 mcg/mL [...] Available Not Available Not Available prednison e 50 mg tablet TAKE 1 TABLET BY MOUTH EVERY DAY FOR 5 DAYS 06/25 completed Not Available Not Available Not Available lidocaine 5 % topical patch 06/25 completed Not Available Not Available Not Available promethaz [...] mcg tablet TAKE 1 TABLET BY MOUTH DAILY active Not Available Not [...] 1 CAPSULE BY MOUTH TWICE A DAY 06/25 completed Not Available Not Available Not Available omeprazol e 20 mg capsule,d elayed [...] ol propionat e 0.05 % topical cream 06/25 completed Not Available Not Available Not [...] MOUTH EVERY 24 HOURS FOR 10 DAYS 06/25 completed Not Available Not Available Not Available oxycodone -acetamin ophen 7.5 mg-325 mg tablet TAKE 1 TABLET BY MOUTH TWICE A DAY NEEDED 06/25 completed Not Available Not Available Not Available methylpre dnisolone 4 mg tablets in a dose pack TAKE 6 TABLETS ON DAY 1 DIRECTED ON PACKAGE AND DECREASE BY 1 TAB EACH DAY FOR A TOTAL OF 6 DAYS 06/25 completed Not Available Not Available Not [...] propionat e 50 mcg/actua tion nasal spray,sanjuana penon 07/13 completed Not Available Not Available Not [...] MOUTH TWICE A DAY FOR 7 DAYS 06/20 completed Not Available Not Available Not Available amoxicill in 500 mg-potass ium clavulana te 125 mg tablet TAKE 1 TABLET BY MOUTH TWICE DAILY 08/05 /2024 completed Not Available Not Available Not Available neomycin- polymyxin -hydrocor t 3.5 mg-10,000 unit/mL-1 % ear drops,sanjuana p INSTILL 2 DROPS INTO BOTH EARS 4 TIMES A DAY 06/25 completed Not Available Not Available Not [...] capsule twice a day by oral route 07/04 completed Not Available Not Available Not Available duloxetin e 30 mg capsule,d elayed release TAKE 1 CAPSULE BY MOUTH EVERY DAY 06/25 completed Not Available Not Available Not [...] Not Available Not Available Not Available Pepcid 02/081 completed Not Available Not Available Not Available [...] administ ered by the provider 01/07 completed [facility]: 0409-427 08-27 Not Available Not Available Not Available Enbrel SureClick 50 mg/mL (1 mL) subcutane ous pen injector 06/25 completed Not Available Not Available Not Available Symbicort 160 mcg-4.5 mcg/actua tion HFA aerosol inhaler INHALE 2 PUFFS EVERY 12 HOURS active Not Available Not Available No t Available compressi on stocking, thigh high, regular [...] mg by injectio n route. 07/13 completed [facility] 59302-62 4- Not Available Not Available Not Available lidocaine 5 % topical ointment 06/25 completed Not Available Not Available Not Available Combivent [...] 0.25 mg/0.5 mL subcutane ous pen injector [id number] 2 11/05 completed Not Available Not Available [...] and Address Organization Details Last Updated DateTime 162.56 cm 24.2 kg/m2 19452.5 2 g 97.6 [degF] 90 /min 98 % 98 % 156 mm[Hg] 84 mm[Hg] Marivel lea [facility] [employer] 11:10:47 Date Recorded Body height Body mass index (BMI) Body weight Body temperature Respiratory rate Oxygen saturation Oxygen saturation in Arterial blood by Pulse oximetry Heart rate Systolic blood pressure Diastolic blood pressure Provider Name and Address Organization Details Last Updated DateTime 162.56 cm 25.4 kg/m2 75164.5 9 g 98 [degF] 17 /min 97 % 97 % 97 /min 140 mm[Hg] 80 mm[Hg] Katja Olivia [employer] 15:05:55 Date Recorded Body height Body mass index (BMI) Body weight Provider Name and Address Organization Details Last Updated DateTime 06/25/2024 162.56 cm 24 kg/m2 69372.93 g Cecilia Givens [facility] [employer] [facility] [employer] [facility] 06/25/2024 09:48:12 Date Recorded Body height Body mass index (BMI) Body weight Body temperature Heart rate Oxygen saturation Oxygen saturation in Arterial blood by Pulse oximetry Systolic blood pressure Diastolic blood pressure Provider Name and Address Organization Details Last Updated DateTime 162.56 cm 24.9 kg/m2 69824.8 9 g 97.5 [degF] 109 /min 97 % 97 % 140 mm[Hg] 80 mm[Hg] Marivel lea Colleen [employer] [facility] 10:49:11 Date Recorded Body height Body mass index (BMI) Body weight Heart rate Oxygen saturation Oxygen saturation in Arterial blood by Pulse oximetry Systolic blood pressure Diastolic blood pressure Provider Name and Address Organization Details Last Updated DateTime 4 162.56 cm 21.6 kg/m2 07855.6 4 g 105 /min 96 % 96 % 144 mm[Hg] 80 mm[Hg] JENNIFER Keene [place] - [facility] [employer] [facility] 4 14:39:31 Social History Question Answer Notes LastModified by Organization Details LastModified Time Tobacco Smoking Status Former Smoker quit 7 yrs ago Not Available [facility] 05/11/2022 01:03:53 Do You Have An Advance Directive? No MIGRATION.0301 [id number] Information not available 05/11/2022 Are You Blind Or Do You Have Difficulty Seeing? No MIGRATION.0301 807968 Information not available 05/11/2022 What Is Your Level Of Caffeine Consumption? Moderate MIGRATION.0301 382553 Information not available 05/11/2022 How Much Tobacco Do You Chew? None MIGRATION.0301 538701 Information not available 05/11/2022 In The 14 Days Before Symptom Onset, Have You Had Close Contact With A Laboratory-confi rmed COVID-19 While That Case Was Ill? No MIGRATION.0301 849377 Information not available 05/11/2022 In The 14 Days Before Symptom Onset, Have You Had Close Contact With A Person Who Is Under Investigation For COVID-19 While That Person Was Ill? No MIGRATION.0301 032654 Information not available 05/11/2022 Are You Deaf Or Do You Have Serious Difficulty Hearing? No MIGRATION.0301 563247 Information not available 05/11/2022 What Type Of Diet Are You Following? REGULAR MIGRATION.0301 761585 Information not available 05/11/2022 Which Illicit Or Recreational Drugs Have You Used? None MIGRATION.0301 312667 Information not available 05/11/2022 How Many Days Of Moderate To Strenuous Exercise, Like A Brisk Walk, Did You Do In The Last 7 Days? 0 MIGRATION.0301 923435 Information not available 05/11/2022 Have There Been Any Changes To Your Family Or Social Situation? No MIGRATION.0301 755099 Information not available 05/11/2022 What Is The Fluoride Status Of Your Home? Unknown MIGRATION.0301 958552 Information not available 05/11/2022 When Did You Quit Smoking? 6-10yearssincelastc igarette MIGRATION.0301 262133 Information not available 05/11/2022 Are There Any Guns Present In Your Home? No MIGRATION.0301 728019 Information not available 05/11/2022 Do You Use Insect Repellent Routinely? No MIGRATION.0301 725983 Information not available 05/11/2022 Where Do You Live? SingleLevelHouse MIGRATION.0301 862643 Information not available 05/11/2022 Do You Have A Medical Power Of Remote Pilot Operator? No MIGRATION.0301 097059 Information not available 05/11/2022 What Was The Date Of Your Most Recent Tobacco Screening? 06/25/2024 Information not available 06/25/2024 Do You Have Any Pets? Yes MIGRATION.0301 885953 Information not available 05/11/2022 What Is Your Relationship Status? MIGRATION.0301 741706 Information not available 05/11/2022 Do You Use Your Seat Belt Or Car Seat Routinely? Yes MIGRATION.0301 866218 Information not available 05/11/2022 Do You Have Smoke And Carbon Monoxide Detectors In Your Home? Yes MIGRATION.0301 279312 Information not available 05/11/2022 Do You Use Sunscreen Routinely? No MIGRATION.0301 908713 Information not available 05/11/2022 How Many Years Have You Smoked Tobacco? 48 MIGRATION.0301 460204 Information not available 05/11/2022 Have You Recently Traveled Abroad? No MIGRATION.0301 552721 Information not available 05/11/2022 Do You Have Difficulty Walking Or Climbing Stairs? Yes Due To Knees MIGRATION.0301 727744 Information not available 05/11/2022 Do You Have Any Dietary Restrictions? No MIGRATION.0301 777374 Information not available 05/11/2022 Sex: Female Functional Status Question Answer Note LastModified by Organizat ion Details LastModified Time Do you use any illicit or recreational drugs? No MIGRATION.053332 9761 Information not available 05/11/2022 Do you or have you ever used any other forms of tobacco or nicotine? No MIGRATION.210356 8850 Information not available 05/11/2022 What is your level of alcohol consumption? None MIGRATION.716460 0076 Information not available 05/11/2022 Do you have transportation difficulties? No MIGRATION.590724 5255 Information not available 05/11/2022 Are you able to walk? YESWOREST MIGRATION.218327 9009 Information not available 05/11/2022 Do you have difficulty doing errands alone? No MIGRATION.888746 5264 Information not available 05/11/2022 Are you able to care for yourself? 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 No MIGRATION.103139 9227 Information not available 05/11/2022 Do you or have you ever used e-cigarettes or vape? Current user of electronic cigarettes vape MIGRATION.445256 5400 Information not available 05/11/2022 What is your exercise level? Occasional MIGRATION.370567 3377 Information not available 05/11/2022 Mental Status Question Answer Note LastModified by Organizat ion Details LastModified Time Do you have difficulty concentrating, remembering or making decisions? No MIGRATION.[id number] 6 Information not available 05/11/2022 Family History Relationship Description Onset Age of this Age Resolved Age Notes LastModified by Organization Details LastModified Time Daughter Heart disease MIGRATION.056 [id number] Not available 05/11/2022 01:06:08 Daughter Malignant tumor of cervix MIGRATION.430 5007030 Not available 05/11/2022 01:06:08 Daughter Cerebrovascu lar accident MIGRATION.080 1040258 Not available 05/11/2022 01:06:08 Unspecified Relation Fibromyalgia MIGRATION.03 0 7263083 Not available 05/11/2022 01:06:09 Sister Rheumatoid arthritis MIGRATION.406 8201401 Not available 05/11/2022 01:06:09 Sister Malignant neoplasm of lung MIGRATION.576 9430057 Not available 05/11/2022 01:06:09 Mother Neuropathy MIGRATION.258 8241306 Not available 05/11/2022 01:06:09 Sister Arthritis Not [...] 1 N POLIO N LUNG DISEASE/DISORDER Y COPD Y RADIATION / CHEMOTHERAPY Y Other # 2 N BLOOD DISEASES [...] YOU BEEN HOSPITALIZED OR SEEN IN [facility] IN THE PAST YEAR ? Y [...] preservative 8 completed Not Available [facility] 05/11/2022 01:30:00 Influenza, split virus, trivalent, preservative 0 completed Not Available [facility] 05/11/2022 01:30:01 Td (adult), 2 Lf tetanus toxoid, preservative free, adsorbed 4 completed Lamine Gomez MD [address], [facility] [address], [place], [address], [facility] [employer] [facility] 11/16/2023 17:02:20 Pneumococcal conjugate PCV20, polysaccharide UCR035 conjugate, adjuvant, PF 4 completed Adelia Swift MA [facility], [facility] 01/23/2024 17:02:44 Past Encounters Encounter ID Performer Location Encounter Start Date Encounter Closed Date Diagnosis/Indication Diagnosis SNOMED-CT Code Diagnosis ICD10 Code Diagnosis Note [id number] Ana Paula Urban MD _JOAQUINA_ IGRATION_ DEFAULT_1 _1 , 05/21/2020 00:00:00 05/21/2020 15:16:39 [id number] Christofer Merrill MD S_[facility] Internal Med [facility] [address] [facility] [address] [place] [address] 06/15/2020 00:00:00 06/15/2020 15:26:53 [id number] LORIE Villanueva S_[facility] [address] [facility] [address] [place] [address] 06/22/2020 00:00:00 06/22/2020 13:19:37 [id number] Noam Vance MD S_[facility] [address] [place] [address] 08/20/2020 00:00:00 08/23/2020 16:37:00 [id number] Noam Vance MD S_[facility] [address] [place] [address] 08/24/2020 00:00:00 08/24/2020 16:46:40 [id number] MD RENATO Santiago IGRATION_ DEFAULT_1 _1 , 09/03/2020 00:00:00 09/03/2020 16:37:17 [id number] Noam Vance MD [facility] [address] [address] 09/17/2020 00:00:00 09/17/2020 10:42:29 [id number] Noam Vance MD S[facility] [address] [place] [address] 09/21/2020 00:00:00 10/22/2020 11:11:56 [id number] Noam Vance MD [facility] [address] [address] 10/08/2020 00:00:00 10/08/2020 14:56:02 [id number] MD CHRISTY Cain_[facility] [address] [address] 10/12/2020 00:00:00 10/12/2020 15:32:32 [id number] MD RENATO Santiago IGRATION_ DEFAULT_1 _1 , 11/05/2020 00:00:00 11/05/2020 18:35:57 [id number] MD CHRISTY Elias_[facility] [address] [place] [address] 11/10/2020 00:00:00 11/10/2020 15:29:21 [id number] Kolton Gutierrez MD S_[facility] [address] [place] [address] 11/26/2020 00:00:00 11/26/2020 14:06:30 [id number] MD CHRISTY Elias_[facility] [address] [place] [address] 12/03/2020 00:00:00 12/03/2020 14:28:50 [id number] MD MIGUEL RecioS_[facility]G [facility] [address] [facility] [address] [place] [address] 12/22/2020 00:00:00 12/22/2020 17:04:45 [id number] Noam Vance MD [facility] [address] [place] [address] 01/07/2021 00:00:00 01/07/2021 10:32:37 [id number] MD RENATO Santiago IGRATION_ DEFAULT_1 _1 , 01/28/2021 00:00:00 01/28/2021 15:22:38 [id number] Christofer Merrill MD [facility] Internal Med [facility] [address] [address] 02/08/2021 00:00:00 02/08/2021 15:18:13 [id number] Christofer Merrill MD [facility] Internal Med [facility] [address] [address] 05/24/2021 00:00:00 05/24/2021 17:02:30 [id number] MD RENATO Santiago IGRATION_ DEFAULT_1 _1 , 05/27/2021 00:00:00 05/27/2021 16:11:35 [id number] MD RENATO Santiago IGRATION_ DEFAULT_1 _1 , 09/02/2021 00:00:00 09/02/2021 15:49:54 [id number] Christofer Merrill MD [facility] Internal Med [address] [address] 09/20/2021 00:00:00 09/20/2021 16:34:25 [id number] [facility] [address] [place] [address] 12/14/2021 00:00:00 12/15/2021 18:29:11 [id number] Christofer Merrill MD [facility] Internal Med [facility] [address] [address] 01/17/2022 00:00:00 01/17/2022 16:40:29 [id number] Christofer Merrill MD [facility] Internal Med Marco Antonio pena [address] [facility], [place] [address] 03/15/2022 00:00:00 03/15/2022 16:00:29 [id number] Kolton Gutierrez MD [facility] [address] [place] [address] 04/18/2022 00:00:00 04/18/2022 11:32:03 [id number] Kolton Gutierrez MD [facility] [address] [place] [address] 05/26/2022 14:02:44 05/26/2022 15:15:01 Pain of bilateral knee joints 7984149981 15524 M25.561 M25.562 Osteoarthr itis of right knee joint 5932680213 65549 M17.11 Osteoarthr itis of left knee joint 5431704421 69785 M17.12 Swelling of lower leg 44 8304476 R22.42 [id number] Ana Paula Urban MD [facility] [address] [place] [address] 06/30/2022 14:32:50 06/30/2022 15:27:14 Hypothyroidism 49798988 E03.9 TSH and FT4 in range- continue [...] and minerals and reduce inflammati on. Prediabetes 204907114 R7 3.03 a1c of 5.3% in ideal range however she has gained over 10 pounds on low dose ozempic- she has no further GI upset or nausea when taking her ozempic- will uptitrate ozempic to 0.5 mg once weekly as she is waiting on patient assistance - 1 month sample provided. Focal motor weakness 679 597903 R53.1 Send for MRI brain- she has loss of urinary function and worsened lower and upper ext weakness/m uscle pain. She has MS in her daughter. This is acute in nature and worsened in the past 2 months. Abnormal u terine bleeding 7489106704 9100 N93.9 Send for transvagin al u/s- [...] she chooses to go outside of the [facility] to obtain labwork she was [...] in her case. She voiced understand ing. [id number] MD CHRISTY Elias_[facility] [address] [address] 07/12/2022 10:11:40 07/12/2022 10:46:45 Osteoarthritis of right knee joint 6285461617 09052 M17.11 Osteoarthr itis of left knee joint 5912477111 40497 M17.12 Swelling of lower leg 44 9831801 R22.42 Pain of bi lateral knee joints 0101426163 95720 M25.561 M25.562 Effusion o f joint of left knee 5674431823 19346 M25.462 [id number] MD CHRISTY Elias_SHRUT[facility] [address] [address] 08/09/2022 10:37:47 08/09/2022 11:07:40 Osteoarthritis of left knee joint 5840149630 82573 M17.12 Osteoarthr itis of right knee joint 9894987787 87582 M17.11 Pain of bi lateral knee joints 2295752228 90461 M25.561 M25.562 [id number] Kolton Gutierrez MD [facility] [address] [place] [address] 08/16/2022 09:33:39 08/16/2022 11:10:18 Osteoarthritis of left knee joint 2961491239 54229 M17.12 Osteoarthr itis of right knee joint 6510663285 53685 M17.11 Pain of bi lateral knee joints 9158918364 01032 M25.561 M25.562 Bilateral wrist pain 191 0814529 9288885 M25.531 M25.532 Bilateral carpal tunnel syndrome 1322813017 7646180 G56.03 Rheumatoid arthritis 698 17264 M06.9 Pain of bi lateral hands 9367012428 3681335 M79.641 M79.642 [id number] Kolton Gutierrez MD [facility] [address] [place] [address] 11/07/2022 09:42:14 11/07/2022 10:14:38 Osteoarthritis of left knee joint 4128515001 36582 M17.12 Osteoarthr itis of right knee joint 9553722926 50217 M17.11 Pain of bi lateral knee joints 6691575003 12809 M25.561 M25.303 [id number] Ana Paula Urban MD [facility] [address] [place] [address] 12/01/2022 14:30:11 12/01/2022 15:31:07 Prediabetes 386973069 R73.03 a1c of 5.9% in range- continue on lower dose ozempic 0.5 mg once weekly. Discussed carb counting and how to read food labels. Recommende d patient to utilize the diabetesfo [employer] from the ADA website to help with food preparatio n as this presents ideal carb content per meal so this will make carb counting much easier for patient. Recommende d she incorporat e natural insulin furnace reliner s such as pears, apples, cinnamon, [place] and sweet potatoes to help mobilize her endogenous insulin. Recommende d up to 150 minutes of moderate level activity/e xercise weekly. Hypothyroidism 36780242 E03.9 TSH and FT4 in range- continue [...] and reduce inflammati on. Postmenopa usal osteoporosis 852266801 M81.0 refer to endocrinol ogy for secondary [...] answered and refills necessary at visit today. [id number] No[facility] [address] [place] [address] 01/19/2023 10:26:42 01/19/2023 10:56:20 Osteoarthritis of left knee joint 3982343402 27515 M17.12 Osteoarthr itis of right knee joint 9122044861 63350 M17.11 Pain of bi lateral knee joints 5399387119 03570 M25.561 M25.742 [id number] Noam [facility] [address] [place] [address] 04/11/2023 14:02:11 04/11/2023 14:45:01 Osteoarthritis of left knee joint 4212202176 30119 M17.12 Osteoarthr itis of right knee joint 3480905570 53185 M17.11 Pain of bi lateral knee joints 3226216125 12404 M25.561 M25.192 [id number] Dany Hayden MD [facility] [address] [place] [address] 07/14/2023 12:08:06 07/18/2023 16:26:00 Pain of bilateral knee joints 1856861475 08852 M25.561 M25.562 Bilateral osteoarthritis of knees 8260288946 93559 M17.0 [id number] Lamine Gomez MD [facility] Internal Med [facility] [address] [facility] [place] [address] 08/15/2023 14:23:37 08/15/2023 15:19:53 Adult health examination 707954717 Z00.00 Colonoscop y-Mammogra m- DUE, orderedDex a- 07/2023FLU - NEVERPneum ovax- does not wantPrevna r 13- does not wantCOVID- NEVER Screening mammography 24 823720 Z12.31 Overactive urinary bladder 493909920 N32.81 will start meds Prediabetes 476642089 R7 3.03 watching diet Restless legs 71229898 G 25.81 on meds Iron defic iency anemia 95168068 D50.9 Bilateral osteoarthritis of knees 3093412403 59088 M17.0 seeing ortho Anxiety disorder 4455680 06 F41.9 Bilateral carpal tunnel syndrome 0467234902 0857232 G56.03 using brace Chronic ob structive pulmonary disease 54738865 J44.9 better with inhalers Hypothyroidism 17916028 E03.9 labs Nodule of lung 323807206 R91.1 seeing pulm Osteoporosis 04279586 M8 1.0 does not want meds [id number] Lamine Gomez MD [facility] Internal Med [address] [facility] [place] [address] 08/29/2023 09:41:26 08/29/2023 10:03:10 Pain of bilateral knee regions 4914397020 13438 M25.561 to see ortho Neuropathy 246593214 G62 .9 ^ gabapentin 300 mg am, noon, and 600 mg qhsshe has enough rx and does not need refill [id number] Lamine Gomez MD [facility] Internal Med [address] [place] [address] 09/01/2023 15:13:28 09/01/2023 15:37:39 Edema of lower extremity 859901672 R60.0 [id number] Lamine Gomez MD [facility] Internal Med [address] [place] [address] 09/19/2023 14:07:17 09/19/2023 15:04:03 Pain of bilateral knee regions 2346395103 41583 M25.561 to see ortho Neuropathy 660234468 G62 .9 on gabapentin Pulmonary embolism 67730 003 I26.99 on Eliquis, to be stopped in 2 months Anemia 744809395 D64.9 going to see hematology [id number] Lamine Gomez MD [facility] Internal Med [address] [place] [address] 10/16/2023 13:59:34 10/16/2023 15:53:39 Diarrhea 17673644 R19.7 likely related to abx Dehydration 68184532 E86 .0 she is keeping herself hydrated Pneumonia 939346305 J18. 9 treated Hyponatremia 10725004 E8 7.1 was 133 Vaginitis 47633895 N76.0 [id number] Lamine Gomez MD [facility] Internal Med [address] [facility] [place] [address] 10/24/2023 14:19:21 10/24/2023 15:53:24 Chest wall pain 092389011 R07.89 could be referred pain from spine, advised to see her spine MDshe is already on pain meds and gabapentin [id number] Kd Gregorio DPM [facility] Podiatry [place] [address] [facility] [address] [place] [address] 11/14/2023 10:40:13 11/15/2023 11:32:43 Idiopathic peripheral neuropathy 70740652 G60.9 continue gabapentin per PCPrule out neuropathy with nerve conduction / EMGfollow- up testing- supportive shoe gear once testing positive Prediabetes 583360043 R7 3.03 continue diabetic control PCP recommenda tions5.7 a1c Muscle wea kness of limb 207224927 M62.81 dorsiflexi on right lower extremity Bunion 411232109 M21.61 9 right foot severereco mmend conservati ve offloading with wide supportive soft toe box style shoes Hammer toe 552266982 M20 .41 M20.42 right 2nd toe severe- right foot 2 through 5left foot 2 through 5as above [id number] Lamine Gomez MD [facility] Internal Med [facility] [address] [facility] [place] [address] 11/16/2023 15:15:02 11/16/2023 16:09:37 Chest wall pain 785342821 R07.89 to see another pain management Laceration of skin 10402 5007 T14.8XXA local caretetanu s shot [id number] Lamine Gomez MD [facility] Internal Med [address] [facility] [place] [address] 12/06/2023 11:46:29 12/06/2023 12:37:06 Chest wall pain 432955047 R07.89 has appt with pain management she had CT chest last month and has appt with her pulm [id number] Kd Gregorio DPM [facility] [place] [address] [facility] [address] [place] [address] 01/23/2024 15:14:18 03/08/2024 12:51:34 Idiopathic peripheral neuropathy 30619958 G60.9 continue gabapentin per PCPPositiv e EMGfollow- up with orthopedic recommenda tions- likely lumbar radiculopa thy Prediabetes 920160420 R7 3.03 continue diabetic control PCP recommenda tions5.7 a1c Muscle wea kness of limb 236257866 M62.81 dorsiflexi on right lower extremity Bunion 072150282 M21.61 9 right foot severereco mmend conservati ve offloading with wide supportive soft toe box style shoes Hammer toe 174671132 M20 .41 M20.42 right 2nd toe severe- right foot 2 through 5left foot 2 through 5as above [id number] Lamine Gomez MD S_[facility] Internal Med [place] [address] [facility] [place] [address] 02/19/2024 14:31:49 02/19/2024 15:26:50 Adult health examination [id number] Z00.00 Colonoscop y- 12/29/2023 Mammogram- 01/01/2024 Dexa- 07/2023FLU - NEVERPneum ovax- does not wantPrevna r 20- 01/23/2024 COVID- NEVER Overactive urinary bladder 384627176 N32.81 on meds Prediabetes 210035042 R7 3.03 watching diet Restless legs 35737574 G 25.81 on meds Iron defic iency anemia 01488582 D50.9 need f/u with hematologi st Bilateral osteoarthritis of knees 9922161801 89833 M17.0 seeing ortho Anxiety disorder 3055678 06 F41.9 on meds and better Bilateral carpal tunnel syndrome 7107175251 0680220 G56.03 using brace Chronic ob structive pulmonary disease 00760618 J44.9 better with inhalers Hypothyroidism 68428643 E03.9 stable Nodule of lung 096161667 R91.1 seeing pulm Osteoporosis 14831793 M8 1.0 does not want meds Pneumonia 247066157 J18. 9 treated Chest wall pain 36545729 6 R07.89 has appt with pain management [id number] Lamine Gomez MD [facility] Internal Med [address] [place] [address] 05/02/2024 10:58:14 05/02/2024 11:24:49 Edema of lower extremity 574867364 R60.0 try Furosemide Acute righ t otitis media 580767534 H66.91 [id number] Lamine Gomez MD [facility] Internal Med [address] [place] [address] 06/24/2024 14:57:21 06/24/2024 15:38:25 Nasal mucosa dry 07594426 J34.89 [id number] Dany Hayden MD [facility] [address] [place] [address] 06/25/2024 09:31:10 06/25/2024 10:40:24 Pain of bilateral knee joints 3091814754 90826 M25.561 M25.562 Bilateral osteoarthritis of knees 9597740160 68178 M17.0 [id number] Lamine Gomez MD [facility] [address] [facility] [place] [address] 07/24/2024 10:39:17 07/24/2024 11:51:37 Pain in throat 731592888 J02.9 Negative results Health Concerns Section Related Observation LastModified by Organization Detai ls LastModified Time None Recorded Concern Status LastModified by Organization Details LastModified Time None Recorded Advance Directives Directive N: Payers Encounter Date Sequence Insurance Name Policy Number Policy Nicholas Covered Member ID Nicholas Member ID Guarantor Name 02/19/2024 1 [employer] (MEDICARE REPLACEMENT/AD VANTAGE - PPO) [id number] Alta L Marsala [id number] Alta L Marsala 02/19/2024 2 [place]ARE OR MEDICARE REPLACEMENT PRIMARY) Alta L Marsala [id number] Alta L Marsala 05/02/2024 1 [employer] (MEDICARE REPLACEMENT/AD VANTAGE - PPO) [id number] Alta L Marsala [id number] Alta L Marsala 05/02/2024 2 [place] OR [place]ICARE REPLACEMENT PRIMARY) Alta L Marsala [id number] Alta L Marsala 06/24/2024 1 [employer] (MEDICARE REPLACEMENT/AD VANTAGE - PPO) [id number] Alta L Marsala [id number] Alta L Marsala 06/24/2024 2 [place] OR MEDICARE REPLACEMENT PRIMARY) Alta L Marsala [id number] Alta L Marsala 06/25/2024 1 [facility] (MEDICARE REPLACEMENT/AD VANTAGE - PPO) [id number] Alta L Marsala [id number] Alta L Marsala 06/25/2024 2 [place] OR MEDICARE REPLACEMENT PRIMARY) Alta L Marsala [id number] Alta Vargas 07/24/2024 1 [facility] (MEDICARE REPLACEMENT/AD VANTAGE - PPO) [id number] Alta Vargas [id number] Alta Vargas 07/24/2024 2 [place] OR MEDICARE REPLACEMENT PRIMARY) Alta Vargas [id number] Alta Vargas Notes Date Note Type Note Provider Name and Address Organization Details Recorded Time 02/19/2024 text/html Pt is a 67 y/o h ere for f/uwas in the hospital, record Shannan also was recently in [facility] for pneumonia. She C/o right [...] was having vomiting, had EGD,sees dr carlton Gomez MD [address] [facility], [place], [address], [employer] 02/19/2024 15:25:44 05/02/2024 text/html Pt is here today for bilateral ankle swelling.Left ankle is worse. States that its been like that X 1 monthShe has gained 15lbs. But also weighed with her coat onDenies any painno cp or sob right ear is clogged with some discomfort. Lamine Gomez MD [address] [facility], [place], [address], [employer] 05/02/2024 11:30:51 06/24/2024 text/html Patient is 68y/o female who is here for Urgent care follow up. Patient reported wheezing to the office on 06/20 and advised to go to urgent care due to worsening symptoms. Patient denies shortness of breathe, cough, or fever at this time. Patient reports dry nose with bleeding occasionally. Dry nose-discussed otc moisture spray. BRANDIE Valladares-Kiki [address] [facility], [place], [address], [employer] 06/24/2024 15:37:06 06/25/2024 text/html The patient retu rns complaining of left knee pain. Her previous x-rays were reviewed today in detail with the patient, they show near [id number] changes in medial compartments left worse than right only a sliver of joint space remaining in the left knee medial compartment she has small marginal osteophytes off the medial and lateral joint lines. Patellofemoral articulation show mild lateral patellar tilt with essentially [id number] changes lateral facet of the left knee joint. She states her last cortisone injection was about a year ago. She did very well until recently the last couple of weeks her knee pain has started to flare up again. She denies any new trauma or injury she does not have a history of taking oral anti-inflammatory medication due to the fact that she was on blood thinners for quite awhile. She states the knee feels a little puffy no erythema he had effusion or signs of infection. She is walking with a limp uses a cane for support. States her pain is about an 8 on a scale of 1-10 denies any locking or catching does have a little bit of pain with extremes of motion. She comes in today for evaluation and treatment. A new past medical history sheet was reviewed and signed on the intake sheet of today's date drug allergies current medications family social history previous surgical history 10 point review of systems was reviewed and discussed in detail today with the patient. LORIE Villanueva [address] [facility], [facility] [address], [place], [address], [employer] 06/25/2024 10:17:04 07/24/2024 text/html Patient is 68y/o female who is here for sore throat. Patient states she has had it for three days and was recently around her grandson. Patient declines congestion, cough, fever, or abdominal pains at this time. Strep-Negative 6am- called EMS related to breathing and needed oxygenPatient reports taking allergy-zyrtec daily and took prednisone she had extra of. KATY Valladares [address], [facility] [address], [place], [address], [employer] 07/24/2024 11:20:48 OBGyn Episode No OBEpisode recorded.
--- OUTSIDE RECORDS SUMMARY | 2024-08-07 14:53 | XMS_ITS | Patient Health Record ---
Author Organization [facility] Address [address] [place] [address] Care Team Providers Care Wheel Molder Name Role Phone PorterMarivel Primary Care Provider [phone] Allergies Allergen (clinical drug ingredient) Drug/Non Drug Allergy documented on EMR Reaction Allergy Type Onset Date Status Codeine Phosphate Unknown Drug Allergy Active codeine Codeine Sulfate Unknown Drug Allergy A ctive Reason For Referral No Information Medications Medication SIG (Take, Route, Frequency, Duration) Notes Start Date End Date Status LaMICtal 25 MG 1 TABLET TWICE A DAY ORALLY 30 DAYS for 30 Active fluvoxaMINE Maleate 25 MG 1 TABLET AT BEDTIME ORALLY 30 DAYS for 30 Active Topamax 25 MG 1 tablet Orally once daily neurologist Active HYDROCODONE dose/frequency unknown Active traZODone HCl 50 MG 1-2 tablets Orally at bedtime as needed for 30 Not-Taking Multivitamin Adult - Orally Not-Taking Omeprazole 20 MG 1 capsule Orally Once a day Active Estradiol 1 MG 1 tablet Orally Once a day Active Cipro 500 MG 1 tablet Orally Twice a day Active ALPRAZolam 1 MG dose/frequency unknown Active fluvoxaMINE Maleate 50 MG 1 tablet at bedtime Orally at bedtime for 30 days Active Social History Tobacco Use: Social History Observation Description Date Details (start date - stop date) Current Smoker NA - NA Dont use, Tobacco Use/Smoking Question Answer Notes Are you a current smoker How often do you smoke cigarettes? every day How many cigarettes a day do you smoke? 11-20 How soon after you wake up do you smoke your fir st cigarette? within 5 minutes Are you interested in quitting? Not ready to alina t Problems Problem Type SNOMED Code ICD Code Onset Dates Problem Status W/U Status Risk Notes Problem Moderate episode of recurrent major depressive disorder (F33.1) Active confirmed Plan Of Treatment No Information Insurance Providers Payer Name Payer Address Payer Phone Subscriber Number Group Number Insured Name Patient Relationship to Insured Coverage Start Date Coverage End Date MEDICARE PART A [address] [place] [address] [id number] Alta Vargas Self - patient is the insured 7 MEDICAID [address] [place] [address] [id number] Alta Vargas Self - patient is the insured 7 Medical (General) History Surgical History Surgery Date(Month/Year) Cholecystectomy 02/2016
--- OUTSIDE RECORDS SUMMARY | 2024-08-07 14:53 | XMS_ITS | Encounter Summary ---
Author Organization [facility] Address [address] [place] [address] Care Team Providers Care Casing Running Machine Tender Name Role Phone Bro Cedeño MD Primary Care Provider [phone] Encounter Details Date Type Department Care Team (Late st Contact Info) Description 08/06/2024 External Device Data [facility] ABSTRACTION Provider, Abstract NO ADDRESS ON FILE Social History Tobacco Use Types Packs/Day Years Used Date Smoking Tobacco: Former Cigarettes 1.5 48 Q uit: 09/25/2015 Alcohol Use Standard Drinks/Week Comments Never 0 (1 standard drink = 0.6 oz pur e alcohol) Comments Unknown Sex and Gender Information Value Date Recorded Sex Assigned at Not on file Legal Sex Female 11:26 AM CDT Gender Identity Not on file Sexual Orientation Not on file documented as of this encounter Plan of Treatment Upcoming Encounters Date Type Department Care Team (Late st Contact Info) Description 10/31/2024 2:30 PM CDT Office Visit [facility] Oncology and Hematology - [place] [address] [place] [address] [facility] [address] [place] [address] Fili Valentin MD [address] [facility] [address] [place] [address] documented as of this encounter Visit Diagnoses Not on filedocumented in this encounter Care Teams Casing Running Machine Tender Relationship Specialty Start Date End Date Bro Cedeño MD [facility] [place] [address] PCP - General Internal Medicine 03/22/24 documented as of this encounter
--- OUTSIDE RECORDS SUMMARY | 2024-08-07 14:53 | XMS_ITS | Encounter Summary ---
Author Organization [facility] Health Address [address] [place] [address] Care Team Providers Care Qa Intern Name Role Phone Christofer Merrill MD Primary Care Provider [phone] Taurus Gleason DC Unavailable Yvonne Rae MD Unavailable Encounter Details Date Type Department Care Team (Late st Contact Info) Description 03/20/2018 [facility] Outpatient Visit [facility] [address] [place] [address] [place] [address] [address] Social History Tobacco Use Types [...] on filedocumented in this encounter Care Teams Qa Intern Relationship Specialty Start Date End Date Christofer Merrill MD [address] [address] [address] [place] [address] PCP - General Internal Medicine 12/06/11 Taurus Gleason DC [address] [place], [place] [id number] Chiropractic 12/13/11 [place] [address] [facility] [address] [place] [address] Rheumatology 08/22/17 documented as of this encounter
--- OUTSIDE RECORDS SUMMARY | 2024-08-07 14:54 | XMS_ITS ---
Author Organization [facility] Address [address] [place] [address] Care Team Providers Care Customer Operations Intern Name Role Phone Bro Cedeño Primary Care Provider Ashok Angeles Unavailable [phone] Nitza English Unavailable [phone] ALLERGIES No Known Allergies RESULTS Component Value [...] pain (M54.6) Active confirmed Thoracic back pain ([id number]) Problem Lumbar radiculopathy (M54.16) Active confirmed VITAL SIGNS BMI 21.45 kg/m2 06/25/2024 Height 64 in 06/25/2024 Weight 125 lbs 06/25/2024 Encounters Encounter Location Date Provider Diagnosis [facility] [address] [place] [address] 06/25/2024 Nitza English Lumbar radiculopathy M54.16 ; Other low back [...]
--- OUTSIDE RECORDS SUMMARY | 2024-08-07 14:55 | XMS_ITS | Encounter Summary ---
Author Organization [facility] Address [address] [facility] [address] [place] [address] Care Team Providers Care Dairy Nutritionist Name Role Phone Unknown, Notinfile Primary Care Provider Unavail able Christofer Merrill MD Primary Care Provider Unknown, Notinfile Primary Care Provider Unavail able Christofer Merrill MD Primary Care Provider Bro Cedeño MD Primary Care Provider [phone] Encounter Details Date Type Department Care Team (Late st Contact Info) Description 02/12/2014 Orders Only [facility] Health Information Management [address] [place] [address] Amrit Ford MD [address] [place] [address] Social History Tobacco Use Types Packs/Day Years Used Date Smoking Tobacco: Never Assessed Comments Unknown Sex and Gender Information Value Date Recorded Sex Assigned at Not on file Legal Sex Female 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
--- OUTSIDE RECORDS SUMMARY | 2024-08-07 14:55 | XMS_ITS | Encounter Summary ---
Author Organization [facility] Address [address] [facility] [address] [place] [address] Care Team Providers Care Graduation Coach Name Role Phone Unknown, Froylannfile Primary Care Provider Unavail able Christofer Merrill MD Primary Care Provider Unknown, Froylannfile Primary Care Provider Unavail able Christofer Merrill MD Primary Care Provider Bro Cedeño MD Primary Care Provider [phone] Encounter Details Date Type Department Care Team (Late st Contact Info) Description 02/12/2014 Orders Only [facility] [address] [facility] [address] [place] [address] Christofer Merrill MD [address] [facility] [address] [place] [address] Social History Tobacco Use Types Packs/Day Years Used Date Smoking Tobacco: Never Assessed Comments Unknown Sex and Gender Information Value Date Recorded Sex Assigned at Not on file 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
--- OUTSIDE RECORDS SUMMARY | 2024-08-07 14:55 | XMS_ITS | Patient Health Record ---
Author Organization [facility] Address [address] [facility] [address] [place] [address] Care Team Providers Care Drill Operator Automatic Name Role Phone Eliotsharif Bro Primary Care Provider Ashok Angeles Unavailable [phone] Nitza English Unavailable [phone] ALLERGIES No Known Allergies RESULTS Component Value [...] 09:41:39 AM Interpretation:751 Performing Lab: Notes/Report: 751 MRI : Lumbar without contras t Reviewed date:06/26/2024 08:07:21 AM Interpretation:completed Performing Lab: Notes/Report: completed X ray : Lumbar Spine 3 views , AP, Lateral, Spot Reviewed date:07/01/2024 12:42:29 PM Interpretation: Performing Lab: Notes/Report: REASON FOR REFERRAL Reason Lumbar RFA Diagnosis 1 Spondylolisthesis of lumbar region (M43.16) Referral Organization [facility] Referring Provider First Name Ashok Referring Provider Last Name Guy Referring Provider Speciality Orthopedic Surgery Referred Provider Specialty Pain Medicin e Referral Priority Routine MEDICATIONS Medication SIG (Take, Route, Frequency, Duration) Notes Start Date End Date Status Tylenol Active Ferrous Sulfate Acti ve Vitamin C Active predniSONE Not-Takin g Vitamin D Active Medrol (Ambrosio) 4 MG as directed on the package Orally as directed on the package 05/03/2024 Not-Taking Amitriptyline HCl Ac tive Requip Active Amlodipine & Diet Manage Prod Active Omeprazole Active Ibandronate Sodium A ctive Synthroid Active predniSONE 10 MG 1 tablet Orally ever y 8 hours 03/22/2023 Not-Taking Centrum Silver Activ e Medrol (Ambrosio) as directed Orally take as directed for 6 days 04/03/2023 Not-Taking Morphine Sulfate Act trisha Valium 5 MG 1 tablet as needed Orally 1 tablet 1 hour before procedure. 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) Active confirmed Patholog ical fracture of vertebra (551284390) Problem Low back pain of multiple sites of spine with sciatica (M54.40) Active confirmed Sciatica (59626515) Problem Spondylolisthesis (M43.10) Active confirmed Spondylolisthes is (790166270) Problem Compression fracture of body of thoracic vertebra (M48.54XA) Active confirmed Pathological fracture of vertebra (694454142) Problem Age-related osteoporosis with current pathological fracture, vertebra(e), initial encounter for fracture (M80.08XA) Active confirmed Pathological fracture of vertebra (330880244) Problem Thoracic back pain (M54.6) Active confirmed Thoracic back p ain (692956535) Problem Lumbar radiculopathy (M54.16) Active confirmed Lumbar radiculopathy (057815282) VITAL SIGNS Height 64 in 07/30/2024 Weight 125 lbs 07/30/2024 BMI 21.45 kg/m2 07/30/2024 PROCEDURES Procedure Date Ordered Date Performed Result Body Sit e Lumbar Epidural Steroid Injection 04/23/2024 04/23/2024 N/ A Kyphoplasty, Thoracic 04/10/2024 04/10/2024 completed Kyphoplasty, Thoracic 05/06/2024 05/08/2024 completed Lumbar Epidural Steroid Injection 05/16/2024 05/16/2024 N/ A Encounters Encounter Location Date Provider Diagnosis [facility] [address] [address] 08/21/2023 Nitza English Spondylolisthesis of lumbar region M43.16 and Other low back pain M54.59 [facility] [address] [address] 03/19/2024 Nitza English Other low back pain M54.59 [facility] [address] [address] 03/21/2024 Nitza English [facility] [address] [address] 04/03/2024 Nitza English Low back pain of multiple sites of spine with sciatica M54.40 ; Thoracic back pain M54.6 and Compression fracture of thoracic vertebra S22.000A [facility] [address] [place] [address] 04/23/2024 Ashok Tovar Compression fracture of body of thoracic vertebra M48.54XA ; Thoracic back pain M54.6 and Other low back pain M54.59 [facility] [address] [place] [address] 05/30/2024 Nitza English Neck pain M54.2 [facility] [address] [facility] [address] [place] [address] 06/19/2024 Nitza English [facility] [address] [address] 06/25/2024 Nitza Tameka Lumbar radiculopathy M54.16 ; Other low back pain M54.59 and Spondylolisthesis of lumbar region M43.16 [facility] [address] [address] 06/25/2024 Nitza English [facility] [address] [address] 07/30/2024 Ashok Tovar [facility] [address] [address] 08/08/2023 Ashok Tovar [facility] [address] [address] 08/28/2023 Ashok Tovar [facility] [address] [address] 09/01/2023 Ashokbeto Tovar [facility] [address] [address] 09/04/2023 Ashok Guy [facility] [address] [address] 10/24/2023 Ashokbeto Tovar [facility] [address] [address] 03/07/2024 Ashokbeto Tovar [facility] [address] [address] 03/07/2024 Ashok Rutz [facility] [address] [place] [address] 04/10/2024 Ashok Rutz Age-related osteoporosis with current pathological fracture, vertebra(e), initial encounter for fracture M80.08XA [facility] [address] [place] [address] 04/10/2024 Ashok Rutz [facility] [address] [place] [address] 04/18/2024 Ashok Rutz [facility] [address] [place] [place] [address] 04/22/2024 Ashok Rutz [facility] [address] [place] [address] [place] [address] 04/23/2024 Ashok Rutz [facility] [address] [place] [address] [place] [address] 04/23/2024 Ashok Rutz [facility] [address] [place] [address] [place] [address] 04/29/2024 Ashok Rutz [facility] [address] [place] [address] [place] [address] 05/03/2024 Ashok Rutz [facility] [address] [place] [address] [place] [address] 05/06/2024 Ashok Rutz [facility] [address] [place] [address] [place] [address] 05/06/2024 Ashok Rutz Compression fracture of thoracic vertebra S22.000A [facility] [address] [place] [address] [place] [address] 05/07/2024 Ashok Rutz [facility] [address] [place] [address] [place] [address] 05/15/2024 Sahok Rutz [facility] [address] [place] [place] [address] 05/16/2024 Ashok Rutz Lumbar radiculopathy M54.16 [facility] [address] [place] [address] [place] [address] 05/16/2024 Ashok Rutz [facility] [address] [place] [place] [address] 05/23/2024 Ashok Tovar [facility] [address] [place] [place] [address] 05/29/2024 Ashok Tovar [facility] [address] [place] [address] 06/13/2024 Ashok Tovar [facility] [address] [facility] [address] [place] [address] 07/08/2024 Ashok Tovar ASSESSMENTS Encounter Date Diagnosis Assessment Notes Treatment Notes Treatment Clinical Notes 08/21/2023 Spondylolisthesis of lumbar region (ICD-10 - M43.16) 04/03/2024 Low back pain of multiple sites of spine with sciatica (ICD-10 - M54.40) 04/03/2024 Thoracic back pain (ICD-10 - M54.6) 04/23/2024 Compression fracture of body of thoracic vertebra (ICD-10 - M48.54XA) 04/23/2024 Thoracic back pain (ICD-10 - M54.6) 06/25/2024 Lumbar radiculopathy (ICD-10 - M54.16) 06/25/2024 Other low back pain (ICD-10 - M54.59) 08/21/2023 Other low back pain (ICD-10 - M54.59) 03/19/2024 Other low back pain (ICD-10 - M54.59) 04/03/2024 Compression fracture of thoracic vertebra (ICD-10 - S22.000A) 04/23/2024 Other low back pain (ICD-10 - M54.59) 05/30/2024 Neck pain (ICD-10 - M54.2) 06/25/2024 Spondylolisthesis of lumbar region (ICD-10 - M43.16) 04/10/2024 Age-related osteopor osis with current pathological fracture, vertebra(e), initial encounter for fracture (ICD-10 - M80.08XA) 05/06/2024 Compression fracture of thoracic vertebra (ICD-10 - S22.000A) 05/16/2024 Lumbar radiculopathy (ICD-10 - M54.16) PLAN OF TREATMENT No Information Insurance Providers Payer Name Payer Address Payer Phone Subscriber Number Group Number Insured Name Patient Relationship to Insured Coverage Start Date Coverage End Date [employer] Medicare Advantage PPO [address] [address] [place] [address] [id number] Alta Vargas Self - patient is the insured MEDICAL (GENERAL) HISTORY Medical History History ICD Code COPD Rheumatoid arthritis Lung cancer Fibromyalgia IBS Surgical History Surgery Date(Month/Year) Cholecystectomy Tubal ligation Bunionectomy LEEP Procedure D&C Kyphoplasty 03/30/23 Hospitalization History Reason Date(Month/Year) As per above.
--- OUTSIDE RECORDS SUMMARY | 2024-08-07 14:56 | XMS_ITS | CONTINUITY OF CARE DOCUMENT ---
Author Name bonnieivan bonnieivan Address Unknown Organization [facility] Address [address] [place] [address] Phone [phone] Care Team Providers Care Skein Yarn Drier Name Role Phone Brad Johnston MD Unavailable Bro Cedeño MD Unavailable [phone] Bro Cedeño MD Unavailable PROBLEMS Condition Status [...] In-person encounter Office Visit Brad Johnston MD [facility] - In-person encounter Office Visit Brad Johnston MD [facility] HTN essentialBack pain - In-person encounter Office Visit Brad Johnston MD [facility] - In-person encounter Office Visit Brad Johnston MD [facility] Pulmonary embolism - In-person encounter Office Visit Brad Johnston MD [facility] Leg pain, bilateral - In-person encounter Office Visit Brad Johnston MD [facility] - In-person encounter Office Visit Brad Johnston MD [facility] - In-person encounter Office Visit Brad Johnston MD [facility] Cardiology examinationRheumatoid arthritisCOPDFormer smokerPalpitationsAbnormal EKG - In-person encounter Office Visit Brad Johnston MD [facility] - In-person encounter Office Visit Brad Johnston MD [facility] Chest painShortness of breath VITAL SIGNS [...] blood pressure, diastolic 90 mm[Hg] Ta neva [place] blood pressure, systolic 149 mm[Hg] Brayan valladares Porter oxygen saturation, oximetry 98 % Lilliana [place] respiratory rate E&M 20 /min Lilliana [place] weight E&M 125 [lb_av] Lilliana [place] height E&M 64 [in_i] Lilliana [place] Body Mass Index (Ratio) 23.00 kg/m2 Sukhdev Johnston MD blood pressure, cuff size regular Jasvir [facility] blood pressure, diastolic 72 mm[Hg] Ja blood pressure, systolic 126 mm[Hg] Desmond [facility] pulse rate 91 /min Zeb respiratory rate E&M 16 /min Zeb oxygen saturation, oximetry 98 % Zeb weight E&M 134 [lb_av] Zeb height E&M 64 [in_i] Zeb Body Mass Index (Ratio) 23.17 kg/m2 Sukhdev Johnston MD pulse rate 96 /min Zeb blood pressure, diastolic 95 mm[Hg] Ja rret blood pressure, systolic 150 mm[Hg] Jar [facility] weight E&M 135 [lb_av] Zeb oxygen saturation, oximetry 99 % Zeb respiratory rate E&M 16 /min Zeb height E&M 64 [in_i] Zeb Cardona y blood pressure, cuff size regular Jaspal ryan [place] blood pressure, diastolic 81 mm[Hg] Japsal davis [place] blood pressure, systolic 129 mm[Hg] [...] CELLS/UL [employer] [id number] Normal Absolute Neutrophil count 79506 cells/mcL [employer] 5074-5730 High mean platelet volume 9.3 fL [employer] [...] mouth four times a day 2 Anisha Millard ASPIR-81 81 MG ORAL TABLET DELAYED RELEASE [...] of grandchildren Brad Johnston MD U venita Johnsotn MD alcohol use no Brad Johnston MD [...] Payer name Policy type / Coverage type Wesley red libertarian ID [facility] COMPLETE CARE [id number] (PPO C-SNP) Commercial insurance [employer] [id number] HEALTHC[employer] AND FAMILY SERVICES Medicaid 1 [id number] ADVANCE DIRECTIVES Name Date DISCUSSED - NO DECISION MADE TREATMENT PLAN Date Name Performer [id number],C,H as good distal pulses so I do not think it is vascular based Brad Johnston MD [id number],S, Brad Johnsotn MD [id number],C,M ost likely due to COPD. Last echo looked fine Brad Johnston MD [id number],B, Brad Johnston MD [id number],S, Brad Johnston MD [id number],S, Brad Johnston MD [id number],S, Brad Johnston MD [id number],S, Brad Johnston MD [id number],S, Brad Johnston MD [id number],S, Brad Johnston MD [id number],S,I n the face of a normal echo and a benign monitor, there is no reason to worry, and she has a good prognosis. Brad Johnston MD [id number],W, C /o random chest pain 3-4x per week. It lasts for 15 minutes then resolves. We'll check an echo and regadenoson stress test. Brad Johnston MD [id number],W, S hafsa she complains of palpitations, we'll have her wear a moniotr for 48 hours. Brad Johnston MD [id number],S, Brad Johnston MD [id number],S, A s above. Brad Johnston MD Cardiology:continued cessation encouraged quit 2016 Brad Johnston MD Cardiology Brad Johnston MD Cardiology:was dx wi th degerative joint diesases and is being treated by a pain management docv Brad Johnston MD Cardiology:Scar blake at [facility] with pneumonia, is better. O2 is 98% [...] Cardiology:arrange for R hrt cat h at [facility] as outpatient Brad Johnston MD Cardiology:on eliqui s S OB and fatigue continue S he needs R heart cath, had LVEDP on L hrt cath done by Andriy in [facility] T maninder risks and benefits of the [...] BASIC METABOLIC PANE L W/EGFR DLCO - 71754 FRC - 93249 FVC - 97425 Complete Echo Holter Monitor 48 hr Stress Regadenoson Complete Echo Complete Echo DLCO - 77352 FRC - 34192 FVC - 58723 HISTORY OF PROCEDURES Procedure Date Procedure Name Provider Procedure Notes S tatus Complex e/m visit add on Brad Johnston MD completed EKG Brad Johnston MD completed Complex e/m visit add on Brad Johnston MD completed 6 minute walk test Brad Johnston MD c ompleted EKG Brad Johnston MD completed EKG Brad Johnston MD completed
--- OUTSIDE RECORDS SUMMARY | 2024-08-07 14:56 | XMS_ITS ---
Author Organization [facility] Address [address] [place] [address] Care Team Providers Care Public Records Officer Name Role Phone Bro Cedeño Primary Care Provider Ashok Angeles Unavailable [phone] REASON FOR VISIT f/u go over SNN [...] Location Date Provider Diagnosis [facility] [address] [facility] [address] [place] [address] 07/30/2024 Ashok Tovar PLAN OF TREATMENT No Information
--- OUTSIDE RECORDS SUMMARY | 2024-08-07 14:56 | XMS_ITS | Continuity of Care Document ---
Author Organization [facility] Address [address] [place] [address] Phone Care Team Providers Care Solar Sales Energy Advisor Name Role Phone Unavailable Unavailable Unavailable Procedures Procedure Date Limit Oral Evaluation- problem focused J Periapical Radiographic, first Image Mar Surgical extr erupted tooth Advance Directives Directive Yes / No Effective Date File Name No Information Encounters Encounter Description Practice Location Reason(s) For Visit Diagnoses Date Provider Providers Copied on Encounter [facility] , [address], [place], [place], [id number], tel:[phone] [facility] No Information No Information [facility] , [address], [place], [place], [id number], tel:[phone] [facility] Encounter for dental exam and cleaning w abnormal findings No Information Family History Family Member Type Diagnosis Age At Onset No Information Payers Payer name Insurance type Covered constitution party ID Authoriza tion(s) No Information Social [...]
--- OUTSIDE RECORDS SUMMARY | 2024-08-07 14:56 | XMS_ITS ---
Author Organization [facility] Address [address] [place] [address] Care Team Providers Care Fluid Designer Name Role Phone Bro Cedeño MD Primary Care Provider [phone] Active Problems Problem Noted Date Diagnosed Date [...] months. Assessment & Plan (02/23/2018 10:32 AM ELECTION SUPERVISOR): A serum TSH is within normal limits. [...] nodules Assessment & Plan (02/22/2018 8:17 AM ELECTION SUPERVISOR): Chest CT on February 07, 2018 revealed: 1. Localized Bronchiectasis, 2. Ground-glass opacity in the superior segment of the right lower lobe Unchanged. Follow-up chest CT has already been ordered. Assessment & Plan (01/31/2018 5:24 PM ELECTION SUPERVISOR): Follow-up chest CT on February 07, 2018 has shown: 1. Focus of scarring with localized bronchiectasis, linear scarring and very little groundglass opacity in the superior segment of right lower lobe; not significantly changed since 08/04/2017. 2. Old T9 compression fracture. Follow-up chest CT was arranged in 8 months. WILVER (obstructive sleep apnea) 01/31/2018 Assessment & Plan (01/31/2018 5:23 PM ELECTION SUPERVISOR): The patient has many clinical features of [...] patient. Assessment & Plan (02/22/2018 8:17 AM ELECTION SUPERVISOR): Her BMI is 25.96kg/m2. No significant change in her weight since 8 months ago. Assessment & Plan (01/31/2018 5:21 PM ELECTION SUPERVISOR): BMI is 26.50 kg/m2. She states that she has gained about 18 lb over the past 1.5 year. Chronic fatigue 01/31/2018 Assessment & Plan (02/22/2018 8:20 AM ELECTION SUPERVISOR): Extensive workup for fatigue has not shown any abnormal findings. Free T4 is borderline and we will repeat the test in 3 months. Etiology of chronic fatigue could be multiple problems including: Fibromyalgia, poorly-controlled rheumatoid arthritis and polypharmacy. Assessment & Plan (01/31/2018 5:36 PM ELECTION SUPERVISOR): Patient's chronic fatigue could be due to [...] demonstrated. Assessment & Plan (02/22/2018 8:15 AM ELECTION SUPERVISOR): The etiology of shortness of Breath is multifactorial Including emphysema, airway hyperreactivity and bronchiolitis. Today she reports moderate improvement in shortness of breath. She was advised to continue with Stiolto and albuterol inhaler as needed. Assessment & Plan (01/31/2018 5:30 PM ELECTION SUPERVISOR): Eighty G of exertional shortness of breath [...] shot. Assessment & Plan (02/22/2018 8:13 AM ELECTION SUPERVISOR): Pulmonary function testing and chest CT findings [...] vaccine. Assessment & Plan (01/31/2018 5:40 PM ELECTION SUPERVISOR): CT chest has shown eczematous changes and [...] needed. Assessment & Plan (02/23/2018 10:31 AM ELECTION SUPERVISOR): Chronic fatigue could be due to rheumatoid arthritis. She was on combination of methotrexate and leflunomide in the past however currently she does not take any medicine. Her research staff member started her on Humira a while ago but she has not started it yet. Assessment & Plan (01/31/2018 5:27 PM ELECTION SUPERVISOR): Symptoms well controlled. We will continue with [...]
--- OUTSIDE RECORDS SUMMARY | 2024-08-07 14:56 | XMS_ITS | Encounter Summary ---
Author Organization [facility] Health Address [address] [place] [address] Care Team Providers Care Managed Care Director Name Role Phone Christofer Merrill MD Primary Care Provider [phone] Taurus Gleason DC Unavailable Yvonne Rae MD Unavailable Encounter Details Date Type Department Care Team (Late st Contact Info) Description 09/08/2017 [facility] Outpatient Visit [facility] [address] [place] [address] [place] [address] [address] Social History Tobacco Use Types [...] on filedocumented in this encounter Care Teams Managed Care Director Relationship Specialty Start Date End Date Christofer Merrill MD [address] [address] [address] [place] [address] PCP - General Internal Medicine 12/06/11 Taurus Gleason DC [address] [place] [address] Chiropractic 12/13/11 [place] [address] [place] [address] Rheumatology 08/22/17 documented as of this encounter
--- OUTSIDE RECORDS SUMMARY | 2024-08-07 14:56 | XMS_ITS ---
Author Organization [facility] Address [address] [facility] [address] [place] [address] Care Team Providers Care Transportation Aide Name Role Phone Bro Cedeño Primary Care Provider Ashok Angeles [phone] REASON FOR VISIT SNN MRI Lumbar 07-05-24 Encounters Encounter Location Date Provider Diagnosis [facility] [address] [facility] [address] [place] [address] 07/08/2024 Ashok Tovar PLAN OF TREATMENT No Information
--- OUTSIDE RECORDS SUMMARY | 2024-08-07 14:56 | XMS_ITS | Encounter Summary ---
Author Organization [facility] Address [address] [place] [address] Phone Care Team Providers Care Family Service Worker Name Role Phone Christfoer Merrill MD Primary Care Provider Bro Cedeño MD Primary Care Provider [phone] Encounter Details Date Type Department Care Team (Late st Contact Info) Description 02/26/2021 Orders Only [facility] [phone] Scanning, Provider Social History Tobacco Use Types [...] on file Legal Sex Female 6:43 PM RN CARDIAC CATH Gender Identity Not on file Sexual Orientation [...] on filedocumented in this encounter Care Teams Family Service Worker Relationship Specialty Start Date End Date Christofer Merrill MD PCP - General Internal Medicine 12/22/17 01/25/23 Bro Cedeño MD [address] [place] [address] PCP - General Internal Medicine 02/05/24 documented as of this encounter
--- OUTSIDE RECORDS SUMMARY | 2024-08-07 14:56 | XMS_ITS | Referral Summary ---
Author Organization [facility] Address [address] [place] [address] Care Team Providers Care Managing Partner Digital Content [employer] [place] Name Role Phone Bro Cedeño MD Primary Care Provider [phone] Allergies Active Allergy Reactions Criticality Noted Date [...] for 30 minutes. Active ranitidine HCl (ACID CLOTH EXAMINER MACHINE, RANITIDINE, ORAL) 300 mg Active methadone (DOLOPHINE) [...] months. Assessment & Plan (02/23/2018 10:32 AM PIN MAKER): A serum TSH is within normal limits. [...] nodules Assessment & Plan (02/22/2018 8:17 AM PIN MAKER): Chest CT on February 07, 2018 revealed: 1. Localized Bronchiectasis, 2. Ground-glass opacity in the superior segment of the right lower lobe Unchanged. Follow-up chest CT has already been ordered. Assessment & Plan (01/31/2018 5:24 PM PIN MAKER): Follow-up chest CT on February 07, 2018 has shown: 1. Focus of scarring with localized bronchiectasis, linear scarring and very little groundglass opacity in the superior segment of right lower lobe; not significantly changed since 08/04/2017. 2. Old T9 compression fracture. Follow-up chest CT was arranged in 8 months. WILVER (obstructive sleep apnea) 01/31/2018 Assessment & Plan (01/31/2018 5:23 PM PIN MAKER): The patient has many clinical features of [...] patient. Assessment & Plan (02/22/2018 8:17 AM PIN MAKER): Her BMI is 25.96kg/m2. No significant change in her weight since 8 months ago. Assessment & Plan (01/31/2018 5:21 PM PIN MAKER): BMI is 26.50 kg/m2. She states that she has gained about 18 lb over the past 1.5 year. Chronic fatigue 01/31/2018 Assessment & Plan (02/22/2018 8:20 AM PIN MAKER): Extensive workup for fatigue has not shown any abnormal findings. Free T4 is borderline and we will repeat the test in 3 months. Etiology of chronic fatigue could be multiple problems including: Fibromyalgia, poorly-controlled rheumatoid arthritis and polypharmacy. Assessment & Plan (01/31/2018 5:36 PM PIN MAKER): Patient's chronic fatigue could be due to [...] demonstrated. Assessment & Plan (02/22/2018 8:15 AM PIN MAKER): The etiology of shortness of Breath is multifactorial Including emphysema, airway hyperreactivity and bronchiolitis. Today she reports moderate improvement in shortness of breath. She was advised to continue with Stiolto and albuterol inhaler as needed. Assessment & Plan (01/31/2018 5:30 PM PIN MAKER): Eighty G of exertional shortness of breath [...] shot. Assessment & Plan (02/22/2018 8:13 AM PIN MAKER): Pulmonary function testing and chest CT findings [...] vaccine. Assessment & Plan (01/31/2018 5:40 PM PIN MAKER): CT chest has shown eczematous changes and [...] needed. Assessment & Plan (02/23/2018 10:31 AM PIN MAKER): Chronic fatigue could be due to rheumatoid arthritis. She was on combination of methotrexate and leflunomide in the past however currently she does not take any medicine. Her janitorial cleaner started her on Humira a while ago but she has not started it yet. Assessment & Plan (01/31/2018 5:27 PM PIN MAKER): Symptoms well controlled. We will continue with current rheumatoid arthritis medications. 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 Cervical spondylosis without myelopathy 12/13/19 Encounter for preventive health examination 04/2011 Resolved [...] on file Legal Sex Female 6:43 PM PIN MAKER Gender Identity Not on file Sexual Orientation Not on file Last Filed Vital Signs Vital Sign Reading Time Taken Comments Blood Pressure 140/74 03/28/2024 1:55 PM PIN MAKER Pulse 104 03/28/2024 1:56 PM PIN MAKER Temperature 36.3 C (97.3 F) 03/28/2024 1:55 PM PIN MAKER Respiratory Rate 18 02/15/2023 1:53 PM PIN MAKER Oxygen Saturation 98% 03/28/2024 1:56 PM PIN MAKER Inhaled Oxygen Concentration - - Weight 61.7 kg (136 lb) 03/28/2024 1:55 PM PIN MAKER Height 152.4 cm (5') 02/05/2024 2:22 PM PIN MAKER Body Mass Index 26.56 02/05/2024 2:22 PM PIN MAKER Plan of Treatment Not on file Procedures Procedure Name Priority Date/Time Associated Diagnosis Comments DEXA TBS AXIAL SKELETON BONE DENSITY 1 OR MORE SITES Schedule Routine, Read Routine (OP Routine) 02/05/2024 2:34 PM PIN MAKER Age-related osteoporosis without current pathological fracture HEPATITIS PANEL, ACUTE Routine 01/25/2021 2:40 PM PIN MAKER Rheumatoid arthritis, involving unspecified site, unspecified whether rheumatoid factor present (HCC) from Last 3 Months or Most Recently Relevant to Health Maintenance Results * Dexa TBS Axial Skeleton Bone Density 1 or more sites (02/05/2024 2:34 PM PIN MAKER) Anatomical Region Laterality Modality Wrist, Body N/A Radiographic Robyn ging Narrative 02/05/2024 2:50 PM PIN MAKER Patient Name: Alta Vargas Date of : 1955 Date of scan: 02/05/2024 Bone mineral density was performed on a [employer] Discovery Densitometer. Based on machine cross-calibration and [...] density scan were prepared by Elida Artis(Lolly) KANIKA who is accredited by the International Society of Clinical Densitometry. The overall patient assessment and scan interpretation were performed by Figueroa Hickey M.D. who is certified by the International Society of Clinical Densitometry. [id number] Figueroa Hickey MD [facility] DXA PROCEDURES Final Re sult * Hepatitis panel, acute (01/25/2021 2:40 PM PIN MAKER) Pathologist [facility] Hep A IgM Nonreactive Nonreactive [facility] Comment: Interpretive Data: If Hep A IgM Ab is reported as Equivocal, a new sample should be drawn in two weeks for testing. Current interpretive data was last revised on 19. Hep B core IgM Nonreactive Nonreactive [facility] Comment: Interpretive Data If HepB Core IgM Ab is reported as Equivocal, a new sample should be drawn in two weeks for testing. Current interpretive data was last revised on 19. Hep C Ab Nonreactive Nonreactive [facility] Comment:Antibodies to HCV no t detected. Does NOT exclude the possibility of recent exposure to HCV. HepBsAg Nonreactive Nonreactive [facility] Blood 01/25/2021 2:40 PM PIN MAKER 01/25/2021 7:31 PM PIN MAKER us Apolonia Wan MD LAB MICROBIOLOGY - GENERAL ORD ERABLES Edited Result - Final [facility] [place] [address] from Last 3 Months or Most Recently Relevant to Health Maintenance Insurance [facility] MEDICARE ADVANTAGE [facility] MEDICARE ADVANTAGE Care Teams Managing Partner [employer] Content [employer] [place] Relationship Specialty Start Date End Date Bro Cedeño MD [address] [place] [address] PCP - General Internal Medicine 02/05/24
--- OUTSIDE RECORDS SUMMARY | 2024-08-07 14:56 | XMS_ITS | Encounter Summary ---
Author Organization [facility] Address [address] [place] [address] Phone Care Team Providers Care Rag Shredder Name Role Phone Christofer Merrill MD Primary Care Provider Bro Cedeño MD Primary Care Provider [phone] Encounter Details Date Type Department Care Team [...] on file Legal Sex Female 6:43 PM LUMBER BEARER Gender Identity Not on file Sexual Orientation [...] on filedocumented in this encounter Care Teams Rag Shredder Relationship Specialty Start Date End Date Christofer Merrill MD PCP - General Internal Medicine 12/22/17 01/25/23 Bro Cedeño MD [address] [place] [address] PCP - General Internal Medicine 02/05/24 documented as of this encounter
--- OUTSIDE RECORDS SUMMARY | 2024-08-07 14:56 | XMS_ITS | Encounter Summary ---
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
--- OUTSIDE RECORDS SUMMARY | 2024-08-07 14:56 | XMS_ITS | Encounter Summary ---
Author Organization [facility] Address [address] [place] [address] Care Team Providers Care Wagon Driller Name Role Phone Bro Cedeño MD Primary Care Provider [phone] Reason for Referral * Consultation (Routine) - Authorized Specialty Diagnoses / Procedures Referred By Breanna white Referred To Contact Bone Health Diagnoses Age-related osteoporosis without current pathological fracture Thoracic compression fracture, closed, initial encounter (HCC) Cervical radiculopathy Thoracic radiculopathy History of rheumatoid arthritis Vesna Beckford MD [address] [place] [address] Phone: tel: fax: [facility] (All Locations) Referral ID Status Reason Start Date Expiration Date Visits Requested Visits Authorized [id number] Authorized Specialty Services Required 01/22/[phone] Question Answer Please select the performing region: [facility] (All Locations) [167] # of visits: 999 [...] compression fracture. L3-4 moderate spinal stenosis. L4-5 [id number] spinal stenosis bilateral facet synovitis. CT scan shows chronic appearing compression fracture T9 with up to 90% height loss mild chronic T10 compression fracture 30% height loss chronic fracture L1. Chronic fracture L2.I am going to refer the patient to [facility] to get her osteoporosis treated.The patient needs to find a new artificial teeth inspector as hers recently .I explained to the [...] st Contact Info) Description 12/24/2023 Community Orders [facility] EpicCare Link Vesna Beckford MD [address] [place] [address] Age-related osteoporosis without current pathological fracture (Primary [...] on file Legal Sex Female 6:43 PM COMMUNITY LEADER Gender Identity Not on file Sexual Orientation [...] arthritis documented in this encounter Care Teams Wagon Driller Relationship Specialty Start Date End Date Bro Cedeño MD [address] [place] [address] PCP - General Internal Medicine 02/05/24 documented as of this encounter
--- OUTSIDE RECORDS SUMMARY | 2024-08-07 14:56 | XMS_ITS | Encounter Summary ---
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
--- OUTSIDE RECORDS SUMMARY | 2024-08-07 14:56 | XMS_ITS | Clinical Summary ---
Author Organization [facility] Address [address] [place] [phone] Care Team Providers Care Iron Melter Name Role Phone Bro Cedeño MD Primary Care Provider [phone] Allergies Active Allergy Reactions Criticality Noted Date [...] for 30 minutes. Active ranitidine HCl (ACID STAMP REDEMPTION CLERK, RANITIDINE, ORAL) 300 mg Active methadone (DOLOPHINE) [...] months. Assessment & Plan (02/23/2018 10:32 AM GLASS CUT OFF TENDER): A serum TSH is within normal limits. [...] nodules Assessment & Plan (02/22/2018 8:17 AM GLASS CUT OFF TENDER): Chest CT on February 07, 2018 revealed: 1. Localized Bronchiectasis, 2. Ground-glass opacity in the superior segment of the right lower lobe Unchanged. Follow-up chest CT has already been ordered. Assessment & Plan (01/31/2018 5:24 PM GLASS CUT OFF TENDER): Follow-up chest CT on February 07, 2018 has shown: 1. Focus of scarring with localized bronchiectasis, linear scarring and very little groundglass opacity in the superior segment of right lower lobe; not significantly changed since 08/04/2017. 2. Old T9 compression fracture. Follow-up chest CT was arranged in 8 months. WILVER (obstructive sleep apnea) 01/31/2018 Assessment & Plan (01/31/2018 5:23 PM GLASS CUT OFF TENDER): The patient has many clinical features of [...] patient. Assessment & Plan (02/22/2018 8:17 AM GLASS CUT OFF TENDER): Her BMI is 25.96kg/m2. No significant change in her weight since 8 months ago. Assessment & Plan (01/31/2018 5:21 PM GLASS CUT OFF TENDER): BMI is 26.50 kg/m2. She states that she has gained about 18 lb over the past 1.5 year. Chronic fatigue 01/31/2018 Assessment & Plan (02/22/2018 8:20 AM GLASS CUT OFF TENDER): Extensive workup for fatigue has not shown any abnormal findings. Free T4 is borderline and we will repeat the test in 3 months. Etiology of chronic fatigue could be multiple problems including: Fibromyalgia, poorly-controlled rheumatoid arthritis and polypharmacy. Assessment & Plan (01/31/2018 5:36 PM GLASS CUT OFF TENDER): Patient's chronic fatigue could be due to [...] demonstrated. Assessment & Plan (02/22/2018 8:15 AM GLASS CUT OFF TENDER): The etiology of shortness of Breath is multifactorial Including emphysema, airway hyperreactivity and bronchiolitis. Today she reports moderate improvement in shortness of breath. She was advised to continue with Stiolto and albuterol inhaler as needed. Assessment & Plan (01/31/2018 5:30 PM GLASS CUT OFF TENDER): Eighty G of exertional shortness of breath [...] shot. Assessment & Plan (02/22/2018 8:13 AM GLASS CUT OFF TENDER): Pulmonary function testing and chest CT findings [...] vaccine. Assessment & Plan (01/31/2018 5:40 PM GLASS CUT OFF TENDER): CT chest has shown eczematous changes and [...] needed. Assessment & Plan (02/23/2018 10:31 AM GLASS CUT OFF TENDER): Chronic fatigue could be due to rheumatoid arthritis. She was on combination of methotrexate and leflunomide in the past however currently she does not take any medicine. Her automation control technician started her on Humira a while ago but she has not started it yet. Assessment & Plan (01/31/2018 5:27 PM GLASS CUT OFF TENDER): Symptoms well controlled. We will continue with current rheumatoid arthritis medications. 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 Cervical spondylosis without myelopathy 12/13/19 12 Encounter for preventive health examination 04/2011 Resolved Problems Problem Noted Date Diagnosed Date Resolved Date Nausea and vomiting 12/14/2021 01/11/20 23 Surgical History Surgery Date Site/Laterality Comments CHOLECYSTECTOMY [...] on file Legal Sex Female 6:43 PM GLASS CUT OFF TENDER Gender Identity Not on file Sexual Orientation Not on file Obstetrics History Last Filed Vital Signs Vital Sign Reading Time Taken Comments Blood Pressure 140/74 03/28/2024 1:55 PM GLASS CUT OFF TENDER Pulse 104 03/28/2024 1:56 PM GLASS CUT OFF TENDER Temperature 36.3 C (97.3 F) 03/28/2024 1:55 PM GLASS CUT OFF TENDER Respiratory Rate 18 02/15/2023 1:53 PM GLASS CUT OFF TENDER Oxygen Saturation 98% 03/28/2024 1:56 PM GLASS CUT OFF TENDER Inhaled Oxygen Concentration - - Weight 61.7 kg (136 lb) 03/28/2024 1:55 PM GLASS CUT OFF TENDER Height 152.4 cm (5') 02/05/2024 2:22 PM GLASS CUT OFF TENDER Body Mass Index 26.56 02/05/2024 2:22 PM GLASS CUT OFF TENDER Plan of Treatment Health Maintenance Due Date Last Done Comments Breast Cancer Screening-Mammogram 1955 Colon Cancer Screening-Colonoscopy 1955 Hepatitis B Screening 1974 Pneumococcal vaccine 65+ (1 of 2 - PCV) 09/10/1975 Zoster Vaccine (1 of 2) 09/10/1975 Depression Screening 09/11/2019 09/10/2018, 09/11/19 19 Well Visit 65+ 2021 Fall Risk Assessment 04/05/2023 04/05/2022, 04/13/2021, 09/10/2018 Influenza Vaccine (Season Ended) 2024 12/14/2019, 12/11/2017, 12/06/2016, Additional history exists Osteoporosis Screening-Bone Density Scan 02/04/2026 02/05/2024 DTaP/Tdap/Td Vaccine (3 - Td or Tdap) 11/15/2033 11/16/2023, 09/27/2015 Hepatitis C Screening Completed 01/25/2021 Procedures Procedure Name Priority Date/Time Associated Diagnosis Comments DEXA TBS AXIAL SKELETON BONE DENSITY 1 OR MORE SITES Schedule Routine, Read Routine (OP Routine) 02/05/2024 2:34 PM GLASS CUT OFF TENDER Age-related osteoporosis without current pathological fracture HEPATITIS PANEL, ACUTE Routine 01/25/2021 2:40 PM GLASS CUT OFF TENDER Rheumatoid arthritis, involving unspecified site, unspecified whether rheumatoid factor present (HCC) from Last 3 Months or Most Recently Relevant to Health Maintenance Results * Dexa TBS Axial Skeleton Bone Density 1 or more sites (02/05/2024 2:34 PM GLASS CUT OFF TENDER) Anatomical Region Laterality Modality Wrist, Body N/A Radiographic Robyn ging Narrative 02/05/2024 2:50 PM GLASS CUT OFF TENDER Patient Name: Alta Vargas Date of : 1955 Date of scan: 02/05/2024 Bone mineral density was performed on a [employer] Discovery Densitometer. Based on machine cross-calibration and [...] by the International Society of Clinical Densitometry. [id number] Figueroa Hickey MD IM DXA PROCEDURES Final Re sult * Hepatitis panel, acute (01/25/2021 2:40 PM GLASS CUT OFF TENDER) Hep A IgM Nonreactive Nonreactive [facility] Comment: Interpretive Data: If Hep A IgM Ab is reported as Equivocal, a new sample should be drawn in two weeks for testing. Current interpretive data was last revised on 19. Hep B core IgM Nonreactive Nonreactive [facility] Comment: Interpretive Data If HepB Core IgM Ab is reported as Equivocal, a new sample should be drawn in two weeks for testing. Current interpretive data was last revised on 19. Hep C Ab Nonreactive Nonreactive [facility] Comment:Antibodies to HCV no t detected. Does NOT exclude the possibility of recent exposure to HCV. HepBsAg Nonreactive Nonreactive [facility] Blood 01/25/2021 2:40 PM GLASS CUT OFF TENDER 01/25/2021 7:31 PM GLASS CUT OFF TENDER us Apolonia Wan MD LAB MICROBIOLOGY - GENERAL ORD ERABLES Edited Result - Final [facility] Department [place] [address] from Last 3 Months or Most Recently Relevant to Health Maintenance Insurance [facility] MEDICARE ADVANTAGE [facility] MEDICARE Address: [address] [address] [place] [address] [facility] MEDICARE ADVANTAGE [facility] MEDICARE Address: [address] [address] [place] [address] [facility] MEDIC[facility] Address: [facility] [address] [place] [address] Care Teams Iron Melter Relationship Specialty Start Date End Date Bro Cedeño MD [address] [place] [address] PCP - General Internal Medicine 02/05/24
[2024-08-07 16:06] LABS: Free T4 Free Thyroxine 1.08 ng/dL (0.78-2.19)
== END 2024-08-07 14:50 | disposition home or self-care (01) ==
LOC: ANHLAB 14:50
PROVIDERS: PCP Internal Medicine; Visit Provider Nurse Practitioner Family
DX: E03.9 Hypothyroidism, unspecified (principal)
CPT/HCPCS: 36415; 84439; 84443

== ENCOUNTER 2024-09-03 15:17 | Outpatient (CLI) | payer MEDICARE, MEDICAID, SELFPAY ==
--- NOTE | ~2024-09-03 | XR_ITS ---
Exam: Abdomen 1V HISTORY: no bowel movement x 1 week; bloating x 3 mos COMPARISON: 02/01/2024 TECHNIQUE: Supine images of the abdomen FINDINGS: Bowel gas pattern is nonspecific. Fecal stasis is identified within the colon and extending to the rectum. There is no free air or deep sulci. No pathologic calcifications are seen. Visualized lung bases are unremarkable. Post vertebral augmentation of multiple levels within the lower thoracic and lumbar spine with extrav asation of cement. IMPRESSION: Fecal stasis within the colon and extending to the rectum. Reviewed, dictated and finalized at location A.
== END 2024-09-03 15:18 | disposition home or self-care (01) ==
PROVIDERS: PCP Internal Medicine; Visit Provider Nurse Practitioner
DX: K59.00 Constipation, unspecified (principal)
CPT/HCPCS: 74018

== ENCOUNTER 2024-09-06 11:54 | Outpatient (CLI) | payer MEDICARE, MEDICAID, SELFPAY ==
--- NOTE | ~2024-09-06 | CT_ITS ---
EXAM: CT abdomen pelvis w con - 09/06/2024 12:40 CDT History: 68 years old Female with constipation, abdominal distension, TECHNIQUE: Multidetector CT of the abdomen and pelvis with intravenous contrast. Coronal and sagitta l reformats were also provided for review. Automatic exposure control was used for this study. CONTRAST: 100 cc of Optiray 350 was used for this study. COMPARISON: 09/04/22. FINDINGS: VISUALIZED CHEST: Visualized lungs are clear. ABDOMEN and PELVIS: LIVER: Within normal limits. GALLBLADDER: Postcholecystectomy. BILE DUCTS: No dilatation. SPLEEN: Within normal limits. PANCREAS: Within normal limits. ADRENAL GLANDS: Within normal limits. KIDNEYS and URETERS: No hydronephrosis or hydroureter. No nephroureterolithiasis. Left simple renal c yst. URINARY BLADDER: Within normal limits. STOMACH and BOWEL: No abnormal bowel wall thickening. No obstruction. Mild stool burden. REPRODUCTIVE ORGANS: Within normal limits. MESENTERY/PERITONEAL CAVITY: No free fluid or pneumoperitoneum. LYMPH NODES: No abdominal or pelvic lymphadenopathy. ABDOMINAL WALL: Within normal limits. VASCULATURE: Within normal limits. MUSCULOSKELETAL: Multilevel degenerative changes of the spine.Healing fracture of right inferior pubi c ramus. S/p kyphoplasty of T8-T12 vertebral bodies. IMPRESSION: No evidence of acute pathology in abdomen and pelvis. Reviewed, dictated and finalized at location A.
== END 2024-09-06 11:55 | disposition home or self-care (01) ==
PROVIDERS: PCP Internal Medicine; Visit Provider Nurse Practitioner
DX: K59.09 Other constipation (principal); R14.0 Abdominal distension (gaseous)
CPT/HCPCS: 74177; Q9967

== ENCOUNTER 2024-09-06 12:03 | Outpatient (CLI) | payer MEDICARE, MEDICAID, SELFPAY ==
--- NOTE | ~2024-09-06 | CT_ITS ---
CT Scan of the Chest without Contrast: Clinical Indication: Lung cancer Technique: Contiguous sections were acquired throughout the chest without intravenous contrast. Dose reduction technique was used on this scan by utilizing automated exposure control and iterative recon struction technique. The dose-length product (DLP) was 286.32 mGy-cm. COMPARISON: 10/30/2023 Findings: There is no evidence of any significant mediastinal, hilar or axillary lymphadenopathy. The mediastin al soft tissues appear normal. There is no evidence of pleural or pericardial effusion. There is irregular, somewhat streaky airspace opacity in the posterior right upper lobe/apex, which c ould reflect posttreatment change or scarring. Probable minimal emphysema. Probable minimal bibasilar atelectasis or scarring. Images through the upper abdomen reveal no abnormalities. There is vertebroplasty cement at L1, T12, T11, T10, T6, and T5. There are additional compression fra cture deformities of T3, T4, T8, T9, L2, and L3. Impression: Irregular, somewhat streaky airspace opacities in the posterior right upper lobe pulmonary vasculatur e of the posterior segment change or scarring. Minimal emphysema. Numerous compression fractures throughout the spine, as detailed above, several which are new from pr ior exam, and with several interval vertebroplasties. Reviewed, dictated and finalized at location . Impression: Irregular, somewhat streaky airspace opacities in the posterior right upper lob e pulmonary vasculature of the posterior segment change or scarring. Minimal emphysema. Numerous compression fractures throughout the spine, as detailed above, several which are new from prior exam, and with several interval vertebroplasties.
[2024-09-06 12:47] LABS: Estimated Glomerular Filt Rate > 60
== END 2024-09-06 12:04 | disposition home or self-care (01) ==
PROVIDERS: PCP Internal Medicine; Visit Provider Internal Medicine Pulmonary Disease
DX: C34.90 Malignant neoplasm of unspecified part of unspecified bronchus or lung (principal); J43.9 Emphysema, unspecified; S22.030A Wedge compression fracture of third thoracic vertebra, initial encounter for closed fracture; S22.040A Wedge compression fracture of fourth thoracic vertebra, initial encounter for closed fracture; S22.060A Wedge compression fracture of T7-T8 vertebra, initial encounter for closed fracture; S22.070A Wedge compression fracture of T9-T10 vertebra, initial encounter for closed fracture; S32.020A Wedge compression fracture of second lumbar vertebra, initial encounter for closed fracture; S32.030A Wedge compression fracture of third lumbar vertebra, initial encounter for closed fracture; X58.XXXA Exposure to other specified factors, initial encounter
CPT/HCPCS: 71250

== ENCOUNTER 2024-11-05 08:46 | Outpatient (RCR) | payer MEDICARE, MEDICAID, SELFPAY ==
--- NOTE | 2024-11-05 09:03 | WNDPHOTO ---
PHOTO ONLY - See Nursing Notes and/ or assessments for documentation.
[2024-11-05 09:25] VITALS: BMI 28.4
== END 2025-01-20 10:00 | disposition home or self-care (01) ==
LOC: ANHWOC 08:46
PROVIDERS: PCP Internal Medicine; Visit Provider Physician Assistant
DX: S41.132A Puncture wound without foreign body of left upper arm, initial encounter (principal)
CPT/HCPCS: 99213; G0463

== ENCOUNTER 2024-11-13 12:27 | Outpatient (CLI) | payer MEDICARE, MEDICAID, SELFPAY ==
--- OUTSIDE RECORDS SUMMARY | 2024-06-25 05:10 | XMS_ITS ---
Author Organization [facility] Address [address] [facility] [address] [place] [address] Care Team Providers Care Foundry Worker General Name Role Phone Bro Cedeño Primary Care Provider Ashok Angeles Unavailable [phone] Nitza English Unavailable [phone] REASON FOR VISIT f/u low back pain Encounters Encounter Location Date Provider Diagnosis [facility] [address] [place] [address] 06/25/2024 Nitza English PLAN OF TREATMENT No Information
--- OUTSIDE RECORDS SUMMARY | 2024-07-30 09:40 | XMS_ITS ---
Author Organization [facility] Address [address] [place] [place] [address] Care Team Providers Care Quantitative Research Analyst Name Role Phone Bro Cedeño Primary Care Provider Ashok Angeles Unavailable [phone] REASON FOR VISIT f/u go over SNN MEDICATIONS Medication SIG (Take, Route, Frequency, Duration) Notes Start Date End Date Status Requip Active Omeprazole Active Valium 5 MG 1 tablet as needed Orally 1 tablet 1 hour before procedure. May repeat in 30 minutes if needed 03/22/2023 Not-Taking predniSONE 10 MG 1 tablet Orally ever y 8 hours 03/22/2023 Not-Taking Medrol (Ambrosio) as directed Orally take as directed for 6 days 04/03/2023 Not-Taking Tylenol Active Ferrous Sulfate Acti ve Vitamin D Active Ibandronate Sodium A ctive Synthroid Active Vitamin C Active Amlodipine & Diet Manage Prod Active Morphine Sulfate Act trisha traMADol HCl Active Centrum Silver Activ e predniSONE Not-Takin g Medrol (Ambrosio) 4 MG as directed on the package Orally as directed on the package 05/03/2024 Not-Taking Amitriptyline HCl Ac tive SOCIAL HISTORY Tobacco Use: Social History Observation Description Date Details (start date - stop date) Former Smoker NA - NA Sex Assigned At : Social History Observation Description Sex Assigned At Unknown Tobacco Use/Smoking Question Answer Notes Are you a former smoker VITAL SIGNS BMI 21.45 kg/m2 07/30/2024 Height 64 in 07/30/2024 Weight 125 lbs 07/30/2024 Encounters Encounter Location Date Provider Diagnosis [facility] [address] [facility] [address] [place] [address] 07/30/2024 Ashok Tovar PLAN OF TREATMENT No Information
--- OUTSIDE RECORDS SUMMARY | 2024-11-13 13:40 | XMS_ITS | Encounter Summary ---
Author Organization [facility] Address [address] [facility] [place] [address] Care Team Providers Care Electronic Equipment Installer Name Role Phone Christofer Merrill MD Primary Care Provider [phone] Taurus Gleason DC Unavailable Yvonne Rae MD Unavailable Encounter Details Date Type Department Care Team (Late st Contact Info) Description 12/13/2023 Lab Requisition [facility] [address] [place] [address] Fili Valentin MD [facility] [address] [place] [phone] Anemia, unspecified Social History Tobacco Use [...] - 10.7 x10E9/L 12/13/2023 2:06 PM CDT [facility] RBC Count 4.13 3.90 - 5.20 x10E12/L 12/13/2023 2:06 PM CDT [facility] Hemoglobin 9.9(L) 11.9 - 15.8 g/dL 12/13/2023 2:06 PM CDT [facility] Hematocrit 33.3(L) 34.8 - 46.1 % 12/13/2023 2:06 PM CDT [facility] MCV 80.6 80.0 - 98.0 fL 12/13/2023 2:06 PM CDT [facility] MCH 24.0(L) 26.7 - 33.6 pg 12/13/2023 2:06 PM CDT [facility] MCHC 29.7(L) 31.7 - 36.3 g/dL 12/13/2023 2:06 PM CDT [facility] RDW-CV 17.3(H) 11.3 - 14.8 % 12/13/2023 2:06 PM CDT [facility] Platelet Count 403 150 - 420 x10E9/L 12/13/2023 2:06 PM CDT [facility] MPV 8.6 7.8 - 11.4 fL 12/13/2023 2:06 PM CDT [facility] Blood BLOOD SPECIMEN / Unknown 12/13/2023 12:06 PM CDT 12/13/2023 1:56 PM CDT us Fili Valentin MD LAB - HEMATOLOGY ORDERABLES Fin al Result [facility] [address] [place] [address] documented in this encounter Visit Diagnoses Diagnosis Anemia, unspecified documented in this encounter Care Teams Electronic Equipment Installer Relationship Specialty Start Date End Date Christofer Merrill MD [address] [place] [address] [address] [place] [address] PCP - General Internal Medicine 12/06/11 Taurus Gleason DC [address] [place] [address] Chiropractic 12/13/11 [place] [address] [place] [phone] Rheumatology 08/22/17 documented as of this encounter
--- OUTSIDE RECORDS SUMMARY | 2024-11-13 13:40 | XMS_ITS | Clinical Summary ---
Author Organization [facility] Address [address] [place] [address] Care Team Providers Care Maintenance Trainer Name Role Phone Bro Cedeño MD Primary Care Provider [phone] Allergies Active Allergy Reactions Criticality Noted Date Comments Codeine Itching,Nausea and Vomiting High 12/12/19 12 Medications DULoxetine (CYMBALTA) 60 mg Capsule, Delayed Release(E.C.) take 1 capsule by mouth every day in the morning Active Synthroid 75 mcg tablet Take 75 mcg by mouth daily. Active morphine (MS CONTIN) 15 mg Controlled Release tablet TAKE 1 TABLET (15 MG) BY ORAL ROUTE EVERY 12 HOURS Active tramadol HCl (TRAMADOL ORAL) Take by mouth. Active pramipexole (MIRAPEX) 0.25 mg tablet TAKE 1 TABLET BY MOUTH IN THE MORNING AND 2 TABLETS AT BEDTIME 10/07/2023 Active cyclobenzaprine (FLEXERIL) 10 mg tablet Take 10 mg by mouth 3 times daily as needed for Spasm. Active amitriptyline (ELAVIL) 10 mg tablet Take 10 mg by mouth daily at bedtime. 10/03/2024 Active cetirizine (ZyrTEC) 10 mg tablet Take 10 mg by mouth daily. 09/16/2024 Active Jardiance 10 mg tablet Take 1 Tablet by mouth daily. 08/29/2024 Active losartan (COZAAR) 50 mg tablet Take 1 Tablet by mouth 2 times daily. 08/29/2024 Active ondansetron (ZOFRAN ODT) 4 mg Tablet, Rapid Dissolve take 1 tablet by mouth every 8 hours as needed for nausea/vomit ing 09/03/2024 Active spironolactone (ALDACTONE) 25 mg tablet Take 1 Tablet by mouth daily. 09/20/2024 Active furosemide (LASIX) 40 mg tablet Take 1 Tablet by mouth daily. 08/22/2024 Active ferrous sulfate 325 mg (65 mg iron) tablet Take 1 tablet twice a day by oral route in the morning for 90 days. 08/21/2023 Active Active Problems No known active problems Encounters Date Type Department Care Team Description 10/31/2024 2:30 PM CDT Office Visit [facility] [address] [place] [address] Fili Valentin MD Chronic anemia (Primary Dx) 10/23/2024 Orders Only [facility] [address] [place] [address] Fili Valentin MD 10/15/2024 External Device Data STL ABSTRACTION Provider, Abstract 09/25/2024 External Device Data STL ABSTRACTION Provider, Abstract 09/24/2024 External Device Data STL ABSTRACTION Provider, Abstract 09/03/2024 External Device Data STL ABSTRACTION Provider, Abstract 09/03/2024 External Device Data STL ABSTRACTION Provider, Abstract [...] Sign Reading Time Taken Comments Blood Pressure 109/59 10/31/2024 2:06 PM CDT Pulse 110 10/31/2024 2:06 PM CDT Temperature 36.1 C (96.9 F) 10/31/2024 2:06 PM CDT Respiratory Rate 16 10/31/2024 2:06 PM CDT Oxygen Saturation 95% 10/31/2024 2:06 PM CDT Inhaled Oxygen Concentration - - Weight 71.6 kg (157 lb 12.8 oz) 10/31/2024 2:06 PM CDT Height 162.6 cm (5' 4) 09/25/2023 3:11 PM CDT Body Mass Index 27.09 09/25/2023 3:11 PM CDT Plan of Treatment Upcoming Encounters Date Type Department Care Team (Late st Contact Info) Description 02/11/2025 2:30 PM RN UROLOGY Office Visit [facility] - [place] [address] [facility] [address] [place] [address] Fili Valentin MD [address] [facility] [employer] [address] [place] [address] Health Maintenance Due Date Last Done Comments Pre-Diabetes and Diabetes Screening 1955 BREAST CANCER SCREENING 1996 FIT-DNA Q 3 years 2001 FIT/FOBT Q 1 year 2001 Flex Sig/CT Colonography Q 5 years 2001 ZOSTER VACCINE (1 of 2) 2006 RSV VACCINE (60+ or ) (1 - Risk 60-74 years 1-dose series) 2016 Lung Cancer Screening 03/10/2022 03/10/2021, 020 INFLUENZA VACCINE (#1) 2024 , 12/11/2017, 12/06/2016, Additional history exists DTAP/TDAP/TD VACCINES (2 - T d or Tdap) 09/26/2025 09/27/2015 OSTEOPOROSIS SCREENING 02/04/2029 02/05/2024, 2023 COLORECTAL SCREENING 12/28/2033 12/29/2023, 06/24/19 21 Colorectal Cancer Screening 12/28/2033 PNEUMOCOCCAL VACCINE 50+ YEARS Completed 01/23/2024 Procedures Procedure Name Priority Date/Time Associated Diagnosis Comments CBC WITH AUTODIFFERENTIAL Routine 2024 3:40 PM CDT COLONOSCOPY REPORT Routine 12/29/2023 9: 26 AM CDT from Last 3 Months or Most Recently Relevant to Health Maintenance Results * CBC WITH AUTODIFFERENTIAL (10/22/2024 3:40 PM CDT) Blood us Fili Valentin MD HEMATOLOGY ORDERABLES Final Res ult * COLONOSCOPY REPORT (12/29/2023 9:26 AM CDT) us Provider Scanning GI PROCEDURE ORDERABLES Final Result from Last 3 Months or Most Recently Relevant to Health Maintenance Insurance MEDICAID [place] Care Teams Maintenance Trainer Relationship Specialty Start Date End Date Bro Cedeño MD [address] [place] [phone] PCP - General Internal Medicine 03/22/24
--- OUTSIDE RECORDS SUMMARY | 2024-11-13 13:40 | XMS_ITS | Clinical Summary ---
Author Organization [facility] [employer] Address [address] [facility] [place] [address] Care Team Providers Care Post Form Remover Name Role Phone Christofer Merrill MD Primary Care Provider [phone] Taurus Gleason DC Unavailable Yvonne Rae MD Unavailable Source Comments [facility],non-owned Affiliates and Associated Physician Practices is amultiple site organization consisting of ambulatory clinics and hospital sitesin [place], [place], [place] and [place]. This disclosure is being madepursuant to the Care Everywhere program and may not contain all information available regarding this patient. Last updated 17.[facility] [employer] Allergies Active Allergy Reactions Criticality Noted Date Comments Codeine Itching Medium 12/12/2011 Medications * This document contains information received from the source organization and may not represent a complete record from that organization. * Be aware that medications may not be up to date on this document. Alwaysverify current medications with the patient. omeprazole (PRILOSEC) 20 MG capsule TK 1 C PO QD 7 Active albuterol HFA (VENTOLIN HFA) 108 (90 BASE) MCG/ACT inhaler INL 2 PFS PO Q 4 H 7 Active DULoxetine (CYMBALTA) 60 MG capsule Take 60 mg by mouth 2 times daily 4 8 Active diclofenac sodium (VOLTAREN) 1 % gel 8 Active ibuprofen (MOTRIN) 800 MG tablet ibuprofen 800 mg tablet Active fluticasone-chana nterol (BREO ELLIPTA) 100-25 MCG/INH inhalerIndicatio ns:Chronic obstructive pulmonary disease, unspecified COPD type (HCC) Inhale 1 puff by mouth once daily Administer at the same time each day. Rinse mouth after using 1 Inhaler 4 8 Active predniSONE (DELTASONE) 5 MG tablet TAKE 2 TABLETS BY MOUTH EVERY DAY 60 tablet 8 Active Active Problems Problem Noted Date [...] Diagnosed Date Resolved Date Constipation 11/28/2017 12/26/2017 Encounters Date Type Department Care Team Description 08/14/2024 2:40 PM CDT Ancillary Procedure [facility] Orthopedics - Radiology [address] [place] [phone] Stefanie Pinedo PA-C Chronic left shoulder pain 08/14/2024 2:30 PM CDT Office Visit [facility] [address] [place] [address], [address] [place] [address] Stefanie Pinedo PA-C Chronic left shoulder pain (Primary Dx); AVN (avascular necrosis of bone) ([facility]); Osteoarthritis of left shoulder, unspecified osteoarthritis type from Last 3 Months Immunizations Immunization Administration Dates Next Due INFLUENZA [...] Comments Blood Pressure 177/82 03/15/2023 10:34 PM [employer] 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 Pulse 86 03/15/2023 10:34 PM 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 Temperature 36.8 C (98.3 F) 03/15/2023 10:34 PM 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 Respiratory Rate 22 03/15/2023 10:34 PM 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 Oxygen Saturation 100% 03/15/2023 10:34 PM 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 Inhaled Oxygen Concentration - - Weight 65.8 kg (145 lb) 08/14/2024 2:32 PM CDT Height 152.4 cm (5') 08/14/2024 2:32 PM CDT Body Mass Index 28.32 08/14/2024 2:32 PM CDT Plan of Treatment Health Maintenance Due Date [...] MEDICARE AWV CALENDAR YEAR 2024 INFLUENZA VACCINE (#1) 2024 7, 12/09/2015, 12/07/2014, Additional history exists SCREENING FOR DIABETES 03/15/2026 03/15/2023, 2017 Respiratory Syncytial Virus (RSV) Vaccine Pt: or [...] Procedure Name Priority Date/Time Associated Diagnosis Comments XR SHOULDER LEFT 2VW OR MORE Routine 08/14/2024 2:47 PM CDT Chronic left shoulder pain COMPREHENSIVE METABOLIC PANEL STAT 03/15/2023 4:59 PM 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 HEPATITIS SCREEN ACUTE Routine 8 2:35 PM CDT Rheumatoid arthritis involving multiple sites with positive rheumatoid factor Malaise and fatigue from Last 3 Months or Most Recently Relevant to Health Maintenance Results * XR Shoulder Left 2Vw or More (08/14/2024 2:47 PM CDT) Narrative [facility] [address] - 08/14/2024 2:47 PM CDT Please see progress note in Epic for results. Stefanie Pinedo PA-C DIAGNOSTIC IMAGING ORDERABLE S Final Result [facility] [address] * (ABNORMAL) COMPREHENSIVE METABOLIC PANEL (03/15/2023 4:59 PM 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) Glucose 100 70 - 105 mg/dL 03/15/2023 5:33 PM 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 [facility] Sodium 138 136 - 145 mmol/L 03/15/2023 5:33 PM 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 [facility] Potassium 3.8 3.5 - 5.1 mmol/L 03/15/2023 5:33 PM 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 [facility] Chloride 98 98 - 107 mmol/L 03/15/2023 5:33 PM 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 [facility] CO2 28 22 - 29 mmol/L 03/15/2023 5:33 PM 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 [facility] Calcium 10.0 8.4 - 10.4 mg/dL 03/15/2023 5:33 PM 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 [facility] Anion Gap 12 6 - 16 mmol/L 03/15/2023 5:33 PM 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 [facility] BUN 21 7 - 26 mg/dL 03/15/2023 5:33 PM [facility] Creatinine 0.72 0.57 - 1.11 mg/dL 03/15/2023 5:33 PM [facility] Alkaline Phosphatase 99 40 - 150 U/L 03/15/2023 5:33 PM [facility] ALT 17 0 - 55 U/L 03/15/2023 5:33 PM [facility] AST 17 5 - 34 U/L 03/15/2023 5:33 PM [facility] Protein Total 7.6 6.4 - 8.3 gm/dL 03/15/2023 5:33 PM [facility] Albumin 3.3(L) 3.4 - 5.0 gm/dL 03/15/2023 5:33 PM [facility] Bilirubin Total 0.4 0.2 - 1.2 mg/dL 03/15/2023 5:33 PM [facility] eGFR by CKD-EPI >90 >=90 mL/min/1.7 3 m2 03/15/2023 5:33 PM [facility] Blood BLOOD SPECIMEN / Unknown Venipuncture / Unknown 03/15/2023 4:59 PM 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 03/15/2023 5:15 PM [facility] Agnes Green BALL WARPER TENDER-CONCRETE BUILDING ASSEMBLER LAB - CHEMISTRY OR DERABLES Final Result Performing Organization Address City/State/[facility] Co de Phone Number [facility] [address] [place] [address] * HEPATITIS SCREEN ACUTE (08/22/2017 2:35 PM [...] with a HCV Nucleic Acid Amplification test ([id number]). Blood BLOOD SPECIMEN / Unknown 08/22/2017 2:35 PM CDT 08/22/2017 Narrative Resulting Agency Comment [facility] [address] [facility] [id number] Yvonne Rae MD LAB - CHEMISTRY ORDERABLES Final Result [facility] INSURANCE BILL [address] [place] [address] from Last 3 Months or Most Recently Relevant to Health Maintenance Insurance [employer] MANAGED MEDICARE ADV MEDICARE SELF PAY NO INSURANCE Member Subscriber Plan / Payer (Ef fective for All Dates) Name:Alta Vargas Member ID:Not on file Relation to Subscriber:Self Name:Alta Vargas Subscriber ID:Not on file Payer ID:Not on file Group ID:Not on file Type:Self Pay Address: [place], [place] Care Teams Post Form Remover Relationship Specialty Start Date End Date Christofer Merrill MD [address] [address] [address] [place] [address] PCP - General Internal Medicine 12/06/11 Taurus Gleason DC [address] [place] [address] Chiropractic 12/13/11 [place] [address] [facility] [address] [place] [phone] Rheumatology 08/22/17
--- OUTSIDE RECORDS SUMMARY | 2024-11-13 13:40 | XMS_ITS | Encounter Summary ---
Author Organization [facility] Address [address] [place] [address] Care Team Providers Care Coke Production Heater Name Role Phone Christofer Merrill MD Primary Care Provider [phone] Taurus Gleason DC Unavailable Yvonne Rae MD Unavailable Encounter Details Date Type Department Care Team (Late st Contact Info) Description 03/20/2018 [facility] Outpatient Visit [facility] [address] [place] [address] [place] [address] [facility] [address] [place] [address] Social History Tobacco Use Types Packs/Day [...] on filedocumented in this encounter Care Teams Coke Production Heater Relationship Specialty Start Date End Date Christofer Merrill MD [address] [place] [address] [address] [place] [address] PCP - General Internal Medicine 12/06/11 Taurus Gleason DC [address] [place] [address] Chiropractic 12/13/11 [place] [address] [address] [place] [phone] Rheumatology 08/22/17 documented as of this encounter
--- OUTSIDE RECORDS SUMMARY | 2024-11-13 13:42 | XMS_ITS | Clinical Summary ---
Author Organization [facility] Address [id number] [place] [address] Care Team Providers Care Manager Intranet Name Role Phone Unavailable Primary Care Provider [...] 1 - Tdap) 09/10/1975 Mammogram Screening 1996 Pneumococcal Vaccine: 50+ Ye ars (1 of 1 - PCV) 2006 Zoster Vaccines (1 of 2) 2006 Dexa Scan (General) 2021 COVID-19 Vaccine (2023-2 5 season) 2023 RSV Immunization or 60+ Years (1 [...]
--- OUTSIDE RECORDS SUMMARY | 2024-11-13 13:42 | XMS_ITS | Encounter Summary ---
Author Organization [facility] Address [address] [place] [address] Care Team Providers Care Relief Worker Name Role Phone Christofer Merrill MD Primary Care Provider [phone] Taurus Gleason DC Unavailable Yvonne Rae MD Unavailable Encounter Details Date Type Department Care Team (Late st Contact Info) Description 09/08/2017 [facility] Outpatient Visit [facility] [address] [place] [address] [place] [address] [facility] [address] [place] [address] Social History Tobacco Use Types [...] on filedocumented in this encounter Care Teams Relief Worker Relationship Specialty Start Date End Date Christofer Merrill MD [address] [place] [address] [address] [place] [phone] PCP - General Internal Medicine 12/06/11 Taurus Gleason DC [address] [place] [address] Chiropractic 12/13/11 [place] [address] [place] [phone] Rheumatology 08/22/17 documented as of this encounter
--- OUTSIDE RECORDS SUMMARY | 2024-11-13 13:42 | XMS_ITS | Encounter Summary ---
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
--- OUTSIDE RECORDS SUMMARY | 2024-11-13 13:42 | XMS_ITS | Encounter Summary ---
Author Organization [facility] Address [address] [facility] [address] [place] [address] Care Team Providers Care Bus Trolley And Taxi Instructor Name Role Phone Unknown, Froylannfile Primary Care Provider Unavail able Christofer Merrill MD Primary Care Provider Unknown, Froylannfile Primary Care Provider Unavail able Christofer Merrill MD Primary Care Provider Bro Cedeño MD Primary Care Provider [phone] Encounter Details Date Type Department Care Team (Late st Contact Info) Description 02/12/2014 Orders Only [facility] [address] [facility] [address] [place] [address] Christofer Merrill MD [address] 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
--- OUTSIDE RECORDS SUMMARY | 2024-11-13 13:42 | XMS_ITS | Patient Health Record ---
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) Problem Spondylolisthesis of lumbar region (M43.16) Active confirmed Acquired spondylolisthesis (950898023) Problem Compression fracture of L1 lumbar vertebra (S32.010A) Active confirmed Problem Age-related osteoporosis with current pathological fracture of vertebra (M80.08XA) Active confirmed Patholog ical fracture of vertebra (912839481) Problem Low back pain of multiple sites of spine with sciatica (M54.40) Active confirmed Sciatica (59952716) Problem Spondylolisthesis (M43.10) Active confirmed Spondylolisthes is (110363755) Problem Compression fracture of body of thoracic vertebra (M48.54XA) Active confirmed Pathological fracture of vertebra (648023012) Problem Age-related osteoporosis with current pathological fracture, vertebra(e), initial encounter for fracture (M80.08XA) Active confirmed Pathological fracture of vertebra (411091457) Problem Thoracic back pain (M54.6) Active confirmed Thoracic back p ain (254980543) Problem Lumbar radiculopathy (M54.16) Active confirmed Lumbar radiculopathy (474102559) VITAL SIGNS Height 64 in 07/30/2024 Weight 125 lbs 07/30/2024 BMI 21.45 kg/m2 07/30/2024 PROCEDURES Procedure Date Ordered Date Performed Result Body Sit e Lumbar Epidural Steroid Injection 04/23/2024 04/23/2024 N/ A Kyphoplasty, Thoracic 04/10/2024 04/10/2024 completed Kyphoplasty, Thoracic 05/06/2024 05/08/2024 completed Lumbar Epidural Steroid Injection 05/16/2024 05/16/2024 N/ A Encounters Encounter Location Date Provider Diagnosis [facility] [address] [address] 03/19/2024 Nitza English Other low back pain M54.59 [facility], [address] [address] 03/21/2024 Nitza English [facility], [address] [address] 04/03/2024 Nitza English Low back pain of multiple sites of spine with sciatica M54.40 ; Thoracic back pain M54.6 and Compression fracture of thoracic vertebra S22.000A [facility], [address] [address] 04/23/2024 Ashok Tovar Compression fracture of body of thoracic vertebra M48.54XA ; Thoracic back pain M54.6 and Other low back pain M54.59 [facility], [address] [address] 05/30/2024 Nitza English Neck pain M54.2 [facility] [address] [facility] [facility] [address] [address] 06/19/2024 Nitza English [facility] [address] [address] 06/25/2024 Nitza English Lumbar radiculopathy M54.16 ; Other low back pain M54.59 and Spondylolisthesis of lumbar region M43.16 [facility] [address] [place] [address] 06/25/2024 Nitza English [facility] [address] [place] [address] 07/30/2024 Ashok Rutz [facility] [address] [place] [address] 03/07/2024 Ashok Rutz [facility] [address] [place] [address] 03/07/2024 Ashok Rutz [facility] [address] [address] 04/10/2024 Ashok Rutz Age-related osteoporosis with current pathological fracture, vertebra(e), initial encounter for fracture M80.08XA [facility] [address] [place] [address] 04/10/2024 Ashok Rutz [facility] [address] [place] [address] 04/18/2024 Ashok Rutz [facility] [address] [address] 04/22/2024 Ashok Rutz [facility] [address] [address] 04/23/2024 Ashok Rutz [facility] [address] [address] 04/23/2024 Ashok Rutz [facility] [address] [place] [address] 04/29/2024 Ashok Rutz [facility] [address] [address] 05/03/2024 Ashok Rutz [facility] [address] [place] [address] 05/06/2024 Ashok Rutz [facility] [address] [address] 05/06/2024 Ashok Tovar Compression fracture of thoracic vertebra S22.000A [facility] [address] [place] [address] 05/07/2024 Ashok Tovar [facility] [address] [place] [address] 05/15/2024 Ashok Tovar [facility] [address] [place] [address] 05/16/2024 Ashok Tovar Lumbar radiculopathy M54.16 [facility] [address] [place] [phone] 05/16/2024 Ashok Tovar [facility] [address] [place] [address] 05/23/2024 Ashok Tovar [facility] [address] [place] [phone] 05/29/2024 Ashok Tovar [facility] [address] [place] [phone] 06/13/2024 Ashok Tovar [facility] [address] [place] [address] 07/08/2024 Ashok Tovar ASSESSMENTS Encounter Date Diagnosis Assessment Notes Treatment Notes Treatment Clinical Notes 04/03/2024 Low back pain of multiple sites [...] Insured Coverage Start Date Coverage End Date [facility] Medicare Advantage PPO [address] [address] [place] [address] [id number] Alta Vargas Self - patient is the insured MEDICAL (GENERAL) HISTORY Medical History History ICD Code COPD Rheumatoid arthritis Lung cancer Fibromyalgia IBS Surgical History Surgery Date(Month/Year) Cholecystectomy Tubal ligation Bunionectomy LEEP Procedure D&C Kyphoplasty 03/30/23 Hospitalization History Reason Date(Month/Year) As per above.
--- OUTSIDE RECORDS SUMMARY | 2024-11-13 13:42 | XMS_ITS | Encounter Summary ---
Author Organization [facility] Address [address] [place] [address] Care Team Providers Care Mold Design Engineer Name Role Phone Unknown, Notinfile Primary Care Provider Unavail able Christofer Merrill MD Primary Care Provider Unknown, Notinfile Primary Care Provider Unavail able Christofer Merrill MD Primary Care Provider Bro Cedeño MD Primary Care Provider [phone] Encounter Details Date Type Department Care Team (Late st Contact Info) Description 02/12/2014 Orders Only [facility] [place] [address] [place] [address] Amrit Ford MD [address] [address] Social History Tobacco Use Types Packs/Day Years Used Date Smoking Tobacco: Never Assessed Comments Unknown Sex and Gender Information Value Date Recorded Sex Assigned at Not on file 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 DEPT [place] [address] PCP - General Internal Medicine 02/05/24 documented as of this encounter
--- OUTSIDE RECORDS SUMMARY | 2024-11-13 13:43 | XMS_ITS | Encounter Summary ---
Author Organization 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
--- OUTSIDE RECORDS SUMMARY | 2024-11-13 13:43 | XMS_ITS | Encounter Summary ---
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
--- OUTSIDE RECORDS SUMMARY | 2024-11-13 13:43 | XMS_ITS ---
Author Organization [facility] Address [address] [place] [address] Care Team Providers Care Burlap Worker Name Role Phone Bro Cedeño MD Primary Care Provider [phone] Active Problems Problem Noted Date Diagnosed Date [...] months. Assessment & Plan (02/23/2018 10:32 AM JAVA DEVELOPER ANALYST): A serum TSH is within normal limits. [...] nodules Assessment & Plan (02/22/2018 8:17 AM JAVA DEVELOPER ANALYST): Chest CT on February 07, 2018 revealed: 1. Localized Bronchiectasis, 2. Ground-glass opacity in the superior segment of the right lower lobe Unchanged. Follow-up chest CT has already been ordered. Assessment & Plan (01/31/2018 5:24 PM JAVA DEVELOPER ANALYST): Follow-up chest CT on February 07, 2018 has shown: 1. Focus of scarring with localized bronchiectasis, linear scarring and very little groundglass opacity in the superior segment of right lower lobe; not significantly changed since 08/04/2017. 2. Old T9 compression fracture. Follow-up chest CT was arranged in 8 months. WILVER (obstructive sleep apnea) 01/31/2018 Assessment & Plan (01/31/2018 5:23 PM JAVA DEVELOPER ANALYST): The patient has many clinical features of [...] patient. Assessment & Plan (02/22/2018 8:17 AM JAVA DEVELOPER ANALYST): Her BMI is 25.96kg/m2. No significant change in her weight since 8 months ago. Assessment & Plan (01/31/2018 5:21 PM JAVA DEVELOPER ANALYST): BMI is 26.50 kg/m2. She states that she has gained about 18 lb over the past 1.5 year. Chronic fatigue 01/31/2018 Assessment & Plan (02/22/2018 8:20 AM JAVA DEVELOPER ANALYST): Extensive workup for fatigue has not shown any abnormal findings. Free T4 is borderline and we will repeat the test in 3 months. Etiology of chronic fatigue could be multiple problems including: Fibromyalgia, poorly-controlled rheumatoid arthritis and polypharmacy. Assessment & Plan (01/31/2018 5:36 PM JAVA DEVELOPER ANALYST): Patient's chronic fatigue could be due to [...] demonstrated. Assessment & Plan (02/22/2018 8:15 AM JAVA DEVELOPER ANALYST): The etiology of shortness of Breath is multifactorial Including emphysema, airway hyperreactivity and bronchiolitis. Today she reports moderate improvement in shortness of breath. She was advised to continue with Stiolto and albuterol inhaler as needed. Assessment & Plan (01/31/2018 5:30 PM JAVA DEVELOPER ANALYST): Eighty G of exertional shortness of breath [...] shot. Assessment & Plan (02/22/2018 8:13 AM JAVA DEVELOPER ANALYST): Pulmonary function testing and chest CT findings [...] vaccine. Assessment & Plan (01/31/2018 5:40 PM JAVA DEVELOPER ANALYST): CT chest has shown eczematous changes and [...] needed. Assessment & Plan (02/23/2018 10:31 AM JAVA DEVELOPER ANALYST): Chronic fatigue could be due to rheumatoid arthritis. She was on combination of methotrexate and leflunomide in the past however currently she does not take any medicine. Her vamp liner started her on Humira a while ago but she has not started it yet. Assessment & Plan (01/31/2018 5:27 PM JAVA DEVELOPER ANALYST): Symptoms well controlled. We will continue with [...]
--- OUTSIDE RECORDS SUMMARY | 2024-11-13 13:43 | XMS_ITS | Clinical Summary ---
Author Organization [facility] Address [address] [place] [address] Care Team Providers Care Screen Printer Name Role Phone Bro Cedeño MD Primary Care Provider [phone] Allergies Active Allergy Reactions Criticality Noted Date Comments Codeine Itching,Nausea only High 12/12/2011 Moxifloxacin Rash Medium 08/09/2018 Medications DULoxetine (BRAULIOMBALTA) 60 mg capsule Active cholecalciferol (VITAMIN D-3) [...] once a week 3.6 mL 5 02/12/20 22 Active Additional Information Patient not taking.Reported [...] 03/22/2022 azithromycin (ZITHROMAX) 250 mg tablet 02/10/20 22 Active benzonatate (TESSALON) 100 mg capsule TAKE [...] for 30 minutes. Active ranitidine HCl (ACID RACK ROOM WORKER, RANITIDINE, ORAL) 300 mg Active methadone (DOLOPHINE) [...] 2 puffs daily 4 g 3 12/07/19 Active ipratropium-albu teroL (COMBIVENT RESPIMAT) 20-100 mcg/actuation inhalerIndicatio ns:Chronic Obstructive Pulmonary Disease with Bronchospasms Inhale 1 puff 4 (four) times a day as needed for wheezing 4 each 3 12/07/19 Active fluticasone propionate (FLONASE) 50 mcg/actuation nasal spray Administer 2 sprays into each nostril daily 1 each 12/16/19 Active albuterol HFA (PROVENTIL HFA,VENTOLIN HFA,PROAIR HFA) 90 mcg/actuation inhaler 2 puffs every 4 (four) hours as needed 12/24/19 Active amoxicillin (AMOXIL) 875 mg tablet Take 1 tablet (875 mg total) by mouth every 12 (twelve) hours for 10 days 12/24/19 Active cefdinir (OMNICEF) 300 mg capsule TAKE 1 CAPSULE BY MOUTH TWICE DAILY FOR 7 DAYS Active cephalexin (KEFLEX) 500 mg capsule Take 1 capsule (500 mg total) by mouth every 12 (twelve) hours Active chlorhexidine (PERIDEX) 0.12 % solution RINSE 5ML BY MOUTH TWICE DAILY STARTING 24 HOURS AFTER SURGERY. DO NOT USE LONGER THAN TWO WEEKS 11/22/19 Active fenofibrate choline (Trilipix) 135 mg capsule Take 1 capsule every day by oral route. 08/09/19 Active simvastatin (ZOCOR) 20 mg tablet Take 1 tablet every day by oral route. 08/09/19 Active furosemide (LASIX) 20 mg tablet TAKE 1 TABLET BY MOUTH EVERY DAY FOR 7 DAYS 01/28/20 Active hylan g-f 20 (Synvisc-One) 48 mg/6 mL syringe Take 6 mL by intraarticular route. 01/20/20 Active ibuprofen (ADVIL,MOTRIN) 800 mg tablet TAKE 1TABLET BY MOUTH 3 TIMES DAILY 01/06/20 Active amLODIPine (NORVASC) 5 mg tablet Take [...] months. Assessment & Plan (02/23/2018 10:32 AM BONDING AND COMPOSITE FABRICATOR): A serum TSH is within normal limits. [...] nodules Assessment & Plan (02/22/2018 8:17 AM BONDING AND COMPOSITE FABRICATOR): Chest CT on February 07, 2018 revealed: 1. Localized Bronchiectasis, 2. Ground-glass opacity in the superior segment of the right lower lobe Unchanged. Follow-up chest CT has already been ordered. Assessment & Plan (01/31/2018 5:24 PM BONDING AND COMPOSITE FABRICATOR): Follow-up chest CT on February 07, 2018 has shown: 1. Focus of scarring with localized bronchiectasis, linear scarring and very little groundglass opacity in the superior segment of right lower lobe; not significantly changed since 08/04/2017. 2. Old T9 compression fracture. Follow-up chest CT was arranged in 8 months. WILVER (obstructive sleep apnea) 01/31/2018 Assessment & Plan (01/31/2018 5:23 PM BONDING AND COMPOSITE FABRICATOR): The patient has many clinical features of [...] patient. Assessment & Plan (02/22/2018 8:17 AM BONDING AND COMPOSITE FABRICATOR): Her BMI is 25.96kg/m2. No significant change in her weight since 8 months ago. Assessment & Plan (01/31/2018 5:21 PM BONDING AND COMPOSITE FABRICATOR): BMI is 26.50 kg/m2. She states that she has gained about 18 lb over the past 1.5 year. Chronic fatigue 01/31/2018 Assessment & Plan (02/22/2018 8:20 AM BONDING AND COMPOSITE FABRICATOR): Extensive workup for fatigue has not shown any abnormal findings. Free T4 is borderline and we will repeat the test in 3 months. Etiology of chronic fatigue could be multiple problems including: Fibromyalgia, poorly-controlled rheumatoid arthritis and polypharmacy. Assessment & Plan (01/31/2018 5:36 PM BONDING AND COMPOSITE FABRICATOR): Patient's chronic fatigue could be due to [...] demonstrated. Assessment & Plan (02/22/2018 8:15 AM BONDING AND COMPOSITE FABRICATOR): The etiology of shortness of Breath is multifactorial Including emphysema, airway hyperreactivity and bronchiolitis. Today she reports moderate improvement in shortness of breath. She was advised to continue with Stiolto and albuterol inhaler as needed. Assessment & Plan (01/31/2018 5:30 PM BONDING AND COMPOSITE FABRICATOR): Eighty G of exertional shortness of breath [...] shot. Assessment & Plan (02/22/2018 8:13 AM BONDING AND COMPOSITE FABRICATOR): Pulmonary function testing and chest CT findings [...] vaccine. Assessment & Plan (01/31/2018 5:40 PM BONDING AND COMPOSITE FABRICATOR): CT chest has shown eczematous changes and [...] needed. Assessment & Plan (02/23/2018 10:31 AM BONDING AND COMPOSITE FABRICATOR): Chronic fatigue could be due to rheumatoid arthritis. She was on combination of methotrexate and leflunomide in the past however currently she does not take any medicine. Her healthcare risk control consultant started her on Humira a while ago but she has not started it yet. Assessment & Plan (01/31/2018 5:27 PM BONDING AND COMPOSITE FABRICATOR): Symptoms well controlled. We will continue with [...] (HCC) Fibromyalgia COPD (chronic obstructive pulmonary disease) Emphysema of lung Asthma Lung nodule GERD (gastroesophageal reflux disease) [...] on file Legal Sex Female 6:43 PM BONDING AND COMPOSITE FABRICATOR Gender Identity Not on file Sexual Orientation Not on file Obstetrics History Last Filed Vital Signs Vital Sign Reading Time Taken Comments Blood Pressure 140/74 03/28/2024 1:55 PM BONDING AND COMPOSITE FABRICATOR Pulse 104 03/28/2024 1:56 PM BONDING AND COMPOSITE FABRICATOR Temperature 36.3 C (97.3 F) 03/28/2024 1:55 PM BONDING AND COMPOSITE FABRICATOR Respiratory Rate 18 02/15/2023 1:53 PM BONDING AND COMPOSITE FABRICATOR Oxygen Saturation 98% 03/28/2024 1:56 PM BONDING AND COMPOSITE FABRICATOR Inhaled Oxygen Concentration - - Weight 61.7 kg (136 lb) 03/28/2024 1:55 PM BONDING AND COMPOSITE FABRICATOR Height 152.4 cm (5') 02/05/2024 2:22 PM BONDING AND COMPOSITE FABRICATOR Body Mass Index 26.56 02/05/2024 2:22 PM BONDING AND COMPOSITE FABRICATOR Plan of Treatment Health Maintenance Due Date Last Done Comments Breast Cancer Screening-Mammogram 1955 Colon Cancer Screening-Colonoscopy 1955 Hepatitis B Screening 1974 Pneumococcal vaccine 65+ (1 of 2 - PCV) 09/10/1975 Zoster Vaccine (1 of 2) 09/10/1975 Depression Screening 09/11/2019 09/10/2018, 09/11/19 19 Well Visit 65+ 2021 Fall Risk Assessment 04/05/2023 04/05/2022, 04/13/2021, 09/10/2018 Influenza Vaccine (#1) 2024 , 12/11/2017, 12/06/2016, Additional history exists Osteoporosis Screening-Bone Density Scan 02/04/2026 02/05/2024 DTaP/Tdap/Td Vaccine (3 - Td or Tdap) 11/15/2033 11/16/2023, 09/27/2015 Hepatitis C Screening Completed 01/25/2021 Procedures Procedure Name Priority Date/Time Associated Diagnosis Comments DEXA TBS AXIAL SKELETON BONE DENSITY 1 OR MORE SITES Schedule Routine, Read Routine (OP Routine) 02/05/2024 2:34 PM BONDING AND COMPOSITE FABRICATOR Age-related osteoporosis without current pathological fracture HEPATITIS PANEL, ACUTE Routine 01/25/2021 2:40 PM BONDING AND COMPOSITE FABRICATOR Rheumatoid arthritis, involving unspecified site, unspecified whether rheumatoid factor present (HCC) from Last 3 Months or Most Recently Relevant to Health Maintenance Results * Dexa TBS Axial Skeleton Bone Density 1 or more sites (02/05/2024 2:34 PM BONDING AND COMPOSITE FABRICATOR) Anatomical Region Laterality Modality Wrist, Body N/A Radiographic Robyn ging Narrative 02/05/2024 2:50 PM BONDING AND COMPOSITE FABRICATOR Patient Name: Alta Vargas Date of : 1955 Date of scan: 02/05/2024 Bone mineral density was performed on a HoloWeplay Discovery Densitometer. Based on machine cross-calibration and [...] by the International Society of Clinical Densitometry. [id number] Figueroa Hickey MD [facility] [place] Final Re sult * Hepatitis panel, acute (01/25/2021 2:40 PM BONDING AND COMPOSITE FABRICATOR) Hep A IgM Nonreactive Nonreactive [facility] Comment: Interpretive Data: If Hep A IgM Ab is reported as Equivocal, a new sample should be drawn in two weeks for testing. Current interpretive data was last revised on 19. Hep B core IgM Nonreactive Nonreactive [facility] Comment: Interpretive Data If HepB Core IgM Ab is reported as Equivocal, a new sample should be drawn in two weeks for testing. Current interpretive data was last revised on 19. Hep C Ab Nonreactive Nonreactive [facility] Comment:Antibodies to HCV no t detected. Does NOT exclude the possibility of recent exposure to HCV. HepBsAg Nonreactive Nonreactive [facility] Blood 01/25/2021 2:40 PM BONDING AND COMPOSITE FABRICATOR 01/25/2021 7:31 PM BONDING AND COMPOSITE FABRICATOR us Apolonia Wan MD LAB MICROBIOLOGY - GENERAL ORD ERABLES Edited Result - Final [facility] [place] [address] from Last 3 Months or Most Recently Relevant to Health Maintenance Insurance [facility] MEDICARE ADVANTAGE [employer] [facility] MEDICARE ADVANTAGE [employer] MEDICARE ADVANTAGE Care Teams Screen Printer Relationship Specialty Start Date End Date Bro Cedeño MD [address] [place] [address] [place] [address] PCP - General Internal Medicine 02/05/24
--- OUTSIDE RECORDS SUMMARY | 2024-11-13 13:43 | XMS_ITS | Encounter Summary ---
Author Organization [facility] Healthcare Address [facility] [place] [address] Care Team Providers Care Stamping Mill Tender Name Role Phone Bro Cedeño MD Primary Care Provider [phone] Reason for Referral * Consultation (Routine) - Authorized Specialty Diagnoses / Procedures Referred By Breanna white Referred To Contact Bone Health Diagnoses Age-related osteoporosis without current pathological fracture Thoracic compression fracture, closed, initial encounter ([facility]) Cervical radiculopathy Thoracic radiculopathy History of rheumatoid arthritis Vesna Beckford MD [address] [place] [address] Phone: tel: fax: [facility] (All Locations) Referral ID Status Reason Start Date Expiration Date Visits Requested Visits Authorized [id number] Authorized Specialty Services Required 01/22/2026 999 999 Question Answer Please select the performing region: [facility] (All Locations) [167] # of visits: [...] compression fracture. L3-4 moderate spinal stenosis. L4-5 [id number] spinal stenosis bilateral facet synovitis. CT scan shows chronic appearing compression fracture T9 with up to 90% height loss mild chronic T10 compression fracture 30% height loss chronic fracture L1. 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
--- OUTSIDE RECORDS SUMMARY | 2024-11-13 13:43 | XMS_ITS | Encounter Summary ---
Author Organization [facility] Address [address] [place] [address] Phone Care Team Providers Care Striker Off Name Role Phone Christofer Merrill MD Primary Care Provider Bro Cedeño MD Primary Care Provider [phone] Encounter Details Date Type Department Care Team (Late st Contact Info) Description 02/26/2021 Orders Only [facility] [phone] Scanning, Provider Social History Tobacco Use Types [...] on file Legal Sex Female 6:43 PM CTRS Gender Identity Not on file Sexual Orientation [...] on filedocumented in this encounter Care Teams Striker Off Relationship Specialty Start Date End Date Christofer Merrill MD PCP - General Internal Medicine 12/22/17 01/25/23 Bro Cedeño MD [address] [facility] [place]PT [place] [address] PCP - General Internal Medicine 02/05/24 documented as of this encounter
--- NOTE | 2024-11-13 14:22 | WPDSIXMINUTE ---
Six Minute Walk Procedure Procedure Performed Pulmonary Stress Test (6 min walk) Six Minute Walk Six Minute Walk: This is a 6 minute walk test. The test was performed and interpreted in accordance with the 2014 ERS/ATS task force guidelines. Findings: The patient's resting room air oxygen saturation measured by pulse oximetry was 97%, the heart rate was 104 bpm, and the modified Jin dyspnea score was 5. Patient ambulated for 122 meters and oxygen saturation remained 98%. At the end of the study the heart rate was 107 bpm and the modified Jin dyspnea score was 2. The patient did not qualify for supplemental oxygen at rest or with ambulation. Compared to 6 minute walk on 04/01/2024, the ambulatory distance decreased from 243 m to 122 m and the dania saturation improved from 95% to 98%. Clinical correlation recommended.
--- NOTE | 2024-11-13 14:24 | WPDPFTINT ---
PFT Procedure Performed PFT Procedure Performed Spirometry with Pre/Post Bronchodilator Plethysmography (Lung Vol) Diffusing Cap (DLCO) Flow Vol Loop PFT Interpretation This is a pulmonary function test with pre and post-bronchodilator spirometry, plethysmography and diffusing capacity. The test was performed and results interpreted in accordance with the 2019 and 2005 ATS/ERS Task Force guidelines respectively using the Global Lung Function Initiative-2012 reference equations. Patient demonstrated good effort and cooperation. Reproducibility criteria were met. The quality of the pre bronchodilator spirometry maneuver was Grade A and post bronchodilator spirometry maneuver was Grade A. Findings: Spirometry: There is decreased maximal expiratory airflow at all lung volumes with concave expiratory flow tracing. The contour the inspiratory flow tracing is normal. The pre bronchodilator FVC is 1.05 L, 39% predicted. The pre bronchodilator FEV1 is 0.61 L, 29% predicted. The pre bronchodilator FEV1: FVC ratio is 58%. The post bronchodilator FVC is 1.35 L, representing a 29% increase. The post bronchodilator FEV1 is 0.82 L, representing a 35% increase. The post bronchodilator FEV1: FVC ratio 61%. Plethysmography: The total lung capacity is 3.67 L, 78% predicted. The functional residual capacity is 2.48 L, 93% predicted. The residual volume is 2.46 L, 121% predicted. The residual volume: Total lung capacity ratio 67%. Diffusing capacity: The diffusing capacity unadjusted for hemoglobin and carboxyhemoglobin is 8.5, 43% predicted. The diffusing capacity adjusted for alveolar volume is 4.03, 91% predicted. In comparison to previous pulmonary function testing on 07/07/2023, the post bronchodilator FVC has decreased from 1.94 L to 1.35 L. The post bronchodilator FEV1 is decreased from 1.25 L to 0.82 L. The total lung capacity is unchanged from 4.09 L to 3.67 L. The functional residual capacity is unchanged from 2.50 L to 2.48 L. The residual volume is unchanged from 2.17 L to 2.46 L. The residual volume: Total lung capacity ratio has increased from 53% to 67%. The diffusing capacity unadjusted for hemoglobin and carboxyhemoglobin is decreased from 11.3 to 8.5. The diffusing capacity adjusted for alveolar volume is unchanged from 3.78 to 4.03. Impression: There is a severe obstructive abnormality. There is significant improvement after inhaling a single dose of albuterol. The increase in residual volume to total lung volume ratio is consistent with hyperinflation from an obstructive abnormality. The diffusing capacity unadjusted for hemoglobin and carboxyhemoglobin is moderately decreased and normalizes when adjusted for alveolar volume. In comparison to previous pulmonary function testing on 07/07/2023, there has been a greater than anticipated time dependent decrease in the FVC, FEV1 and diffusing capacity unadjusted for hemoglobin and carboxyhemoglobin. there has been a greater than anticipated time dependent increase in the residual volume: Total lung capacity ratio with no significant change in the total lung capacity, functional residual capacity, residual volume or diffusing capacity adjusted for alveolar volume. Clinical correlation is recommended.
== END 2024-11-13 12:28 | disposition home or self-care (01) ==
PROVIDERS: PCP Internal Medicine; Visit Provider Physician Assistant
DX: J44.9 Chronic obstructive pulmonary disease, unspecified (principal); R94.2 Abnormal results of pulmonary function studies
CPT/HCPCS: 94060; 94618; 94726; 94729

== ENCOUNTER 2024-11-23 13:01 | Inpatient (IN) | payer MEDICARE, MEDICAID, SELFPAY ==
--- OUTSIDE RECORDS SUMMARY | 2020-04-16 06:03 | XMS_ITS | Continuity of Care Document ---
Author Organization [facility] Address [address] [place] [address] Phone Care Team Providers Care Leather Roller Name Role Phone Unavailable Unavailable Unavailable Procedures Procedure Date Limit Oral Evaluation- problem focused J Periapical Radiographic, first Image Mar Surgical extr erupted tooth Advance Directives Directive Yes / No Effective Date File Name No Information Encounters Encounter Description Practice Location Reason(s) For Visit Diagnoses Date Provider Providers Copied on Encounter [facility] , [address], [place], [place], [id number], tel:[phone] [facility] No Information No Information [facility] , [address], [place], [place], [id number], tel:[phone] [facility] Encounter for dental exam and cleaning w abnormal findings No Information Family History Family Member Type Diagnosis Age At Onset No Information Payers Payer name Insurance type Covered republican ID Authoriza tion(s) No Information Social History Type Description Quantity Date Captured Comments Sex Female Smoking Status No Information Chief Complaint And Reason For Visit No Information Reason For Referral Reason For Referral No Information History Of Present Illness Encounter Date Complaint History Of Prese nt Illness No Information Functional Status Date Functional Assessmen t No Information Instructions Date Instruction Additional Infor mation No Information Assessments Type Assessment Date No Information Patient Care Teams Name Effective Dates (start - stop) Status Members No Information
--- OUTSIDE RECORDS SUMMARY | 2024-05-01 06:00 | XMS_ITS | Continuity of Care Document ---
Author Organization [facility] Address [address] [place] [address] Phone Care Team Providers Care Engineer Fishing Vessel Name Role Phone Nikko Graham MD Unavailable Unavailable Procedures Procedure Date MRI, SPINAL CANAL W/O CONTRAST INJ SPINE LUM/SAC W/ IMAGING GUIDANCE SURGICAL TRAY LOW OSMOLAR CONTRAST (200 TO 299 MG IODI NE) Triamcinolone Acetonide Injection, 10mg MRI, SPINAL CANAL W/O CONTRAST 25 Preauthorization Required MRI, LUMBAR SPINE W/O CONTRAST 24 INJ SPINE CERV/THOR W/ IMAGING GUIDANCE SURGICAL TRAY LOW OSMOLAR CONTRAST (200 TO 299 MG IODI NE) Triamcinolone Acetonide Injection, 10mg INJ SPINE CERV/THOR W/ IMAGING GUIDANCE Injection, Triamcinolone Acetonide, 10mg SURGICAL TRAY LOW OSMOLAR CONTRAST (200 TO 299 MG IODI NE) INJ SPINE CERV/THOR W/ IMAGING GUIDANCE SURGICAL TRAY LOW OSMOLAR CONTRAST (200 TO 299 MG IODI NE) Injection, Triamcinolone Acetonide, 10mg INJ SPINE CERV/THOR W/ IMAGING GUIDANCE SURGICAL TRAY LOW OSMOLAR CONTRAST (200 TO 299 MG IODI NE) Injection, Triamcinolone Acetonide, 10mg Advance Directives Directive Yes / No Effective Date File Name No Information Encounters Encounter Description Practice Location Reason(s) For Visit Diagnoses Date Provider Providers Copied on Encounter [facility], [address], [place], [place], [id number], tel:[phone] [facility] No Information Gladys El. [address], [place], [place], [id number], [place]. tel:[phone] Referring Provider: Ashok Tovar, [address], [place], [address]. tel:[phone] [facility], [address], [place], [place], [id number], tel:[phone] [facility] No Information Gladys El. [address], [place], [place], [address], [place]. tel:[phone] Referring Provider: Ashok Tovar, [address], [place], [address]. tel:[phone] [facility], [address], [place], [place], [address], [place] tel:[phone] [facility] No Information Cruzito Saenz. [address], [place], [place], [id number], [place]. tel:[phone] Referring Provider: [address], [place], [address]. tel:[phone] [facility], [address], [place], [place], [id number], [place] tel:[phone] [facility] No Information López Ulrich. [address], [place], [place], [id number], [place]. tel:[phone] Referring Provider: [address], [place], [address]. tel:[phone] [facility], [address], [place], [place], [address], tel:[phone] [facility] No Information Nava Dany. [address], [place], [id number], . tel:[phone] Referring Provider: [address], [place], [address]. tel:[phone] [facility] [address] [place] [address], [id number], tel:[phone] [facility] No Information Benoit Glasgow. [address], [place], [id number], . tel:[phone] Referring Provider: [address], [place], [address]. tel:[phone] [facility] [address] [place] [address], [id number], tel:[phone] [facility] No Information Cruzito Saenz. [address], [place], [id number], . tel:[phone] Referring Provider: [address], [place], [address]. tel:[phone] Family History Family Member Type Diagnosis Age At Onset No Information Payers Payer name Insurance type Covered green party ID Authoriza tileyda(s) [facility] M[employer] ADVANTAGE PPO [id number] Social History Type Description Quantity Date Captured Comments Sex Female Smoking Status No Information Sexual Orientation Choose not to disclose Chief Complaint And Reason For Visit No [...]
--- OUTSIDE RECORDS SUMMARY | 2024-06-19 08:10 | XMS_ITS ---
Author Organization [facility] Address [address] [place] [address] Care Team Providers Care Ese Teacher Name Role Phone Bro Cedeño Primary Care Provider Ashok Angeles Unavailable [phone] Nitza English Unavailable [phone] REASON FOR VISIT f/u low back pain MEDICATIONS Medication SIG (Take, Route, Fr equency, Duration) Notes Start Date End Date Status Centrum Silver Unkno wn Vitamin C Unknown predniSONE Unknown Vitamin D Unknown Tylenol Unknown predniSONE 10 MG 1 tablet Orally every 8 hours 12/2023 Active Medrol (Ambrosio) as directed Orally t nasir as directed for 6 days 04/03/2023 Not-Taking Valium 5 MG 1 tablet as needed O rally 1 tablet 1 hour before procedure. May repeat in 30 minutes if needed 03/22/2023 Active Morphine Sulfate Unk nown traMADol HCl Unknown Requip Unknown Ibandronate Sodium U nknown Synthroid Unknown Omeprazole Unknown Medrol (Ambrosio) 4 MG as directed on the p ackage Orally as directed on the package 05/03/2024 Unknown Ferrous Sulfate Unkn own SOCIAL HISTORY Tobacco Use: Social History Observation Description Date Details (start date - stop date) Former Smoker NA - NA Sex Assigned At : Social History Observation Description Sex Assigned At Unknown Tobacco Use/Smoking Question Answer Notes Are you a former smoker VITAL SIGNS BMI 21.45 kg/m2 06/19/2024 Height 64 in 06/19/2024 Weight 125 lbs 06/19/2024 Encounters Encounter Location Date Provider Diagnosis [facility] [address] [place] [address] 06/19/2024 Nitza English PLAN OF TREATMENT No Information
--- OUTSIDE RECORDS SUMMARY | 2024-06-25 09:00 | XMS_ITS ---
Author Organization [facility] Address [address] [place] [address] Care Team Providers Care Engine Dispatcher Name Role Phone Davidson Bro Primary Care Provider Ashok Angeles Unavailable [phone] Nitza English Unavailable [phone] ALLERGIES No Known Allergies RESULTS Component Value Reference Range Notes MRI : Lumbar without contras t Reviewed date:06/26/2024 08:07:21 AM Interpretation:completed Performing Lab: Notes/Report: completed X ray : Lumbar Spine 3 views , AP, Lateral, Spot Reviewed date:07/01/2024 12:42:29 PM Interpretation: Performing Lab: Notes/Report: REASON FOR VISIT f/u low back pain MEDICATIONS Medication SIG (Take, Route, Frequency, Duration) Notes Start Date End Date Status Medrol (Ambrosio) 4 MG as directed on the package Orally as directed on the package 05/03/2024 Not-Taking Medrol (Ambrosio) as directed Orally take as directed for 6 days 04/03/2023 Not-Taking predniSONE Not-Takin g Amitriptyline HCl Ac tive Amlodipine & Diet Manage Prod Active Valium 5 MG 1 tablet as needed Orally 1 tablet 1 hour before procedure. May repeat in 30 minutes if needed 03/22/2023 Not-Taking predniSONE 10 MG 1 tablet Orally ever y 8 hours 03/22/2023 Not-Taking Requip Active Omeprazole Active Synthroid Active Vitamin D Active Tylenol Active Vitamin C Active Ibandronate Sodium A ctive Ferrous Sulfate Acti ve Centrum Silver Activ e Morphine Sulfate Act trisha traMADol HCl Active SOCIAL HISTORY Tobacco Use: Social History Observation Description Date Details (start date - stop date) Former Smoker NA - NA Sex Assigned At : Social History Observation Description Sex Assigned At Unknown Tobacco Use/Smoking Question Answer Notes Are you a former smoker PROBLEMS Problem Type ICD Code Onset Dates Problem Status W/U Status Risk SNOMED Code Notes Problem Thoracic back pain (M54.6) Active confirmed Thoracic back pain (295081794) Problem Lumbar radiculopathy (M54.16) Active confirmed Lumbar radiculopathy (956624407) VITAL SIGNS BMI 21.45 kg/m2 06/25/2024 Height 64 in 06/25/2024 Weight 125 lbs 06/25/2024 Encounters Encounter Location Date Provider Diagnosis [facility] [address] [facility] [address] [place] [address] 06/25/2024 Nitza Manuelmio Lumbar radiculopathy M54.16 ; Other low back pain M54.59 and Spondylolisthesis of lumbar region M43.16 ASSESSMENTS Encounter Date Diagnosis Assessment Notes Treatment Notes Treatment Clinical Notes 06/25/2024 Lumbar radiculopathy (ICD-10 - M54.16) 06/25/2024 Other low back pain (ICD-10 - M54.59) 06/25/2024 Spondylolisthesis of lumbar region (ICD-10 - M43.16) PLAN OF TREATMENT No Information Progress Notes * Examination Category Sub-Category Detail Notes X-Ray LUMBAR X-RAY: AP and lateral v iews of the lumbar spine were obtained today. They demonstrate an old L2 compression fracture. L3 to 4 shows spondylolisthesis measuring approximately 4 mm of anterior translation. L4 to 5 shows a mild anterolisthesis. There are previous kyphoplasties from the T10 to L1 vertebral bodies
--- OUTSIDE RECORDS SUMMARY | 2024-07-08 07:29 | XMS_ITS ---
Author Organization [facility] Address [address] [facility] [address] [place] [address] Care Team Providers Care Grapple Yarder Operator Name Role Phone Bro Cedeño Primary Care Provider Ashok Angeles Unavailable [phone] REASON FOR VISIT SNN MRI Lumbar 07-05-24 Encounters Encounter Location Date Provider Diagnosis [facility] [address] [facility] [address] [place] [address] 07/08/2024 Ashok Tovar PLAN OF TREATMENT No Information
--- OUTSIDE RECORDS SUMMARY | 2024-07-30 09:40 | XMS_ITS ---
Author Organization [facility] Address [address] [place] [address] Care Team Providers Care Firer Diesel Locomotive Name Role Phone Bro Cedeño Primary Care Provider Ashok Angeles Unavailable [phone] REASON FOR VISIT f/u go over SNN [...] [facility] [address] [facility] [address] [place] [address] 07/30/2024 Ashok Tovar PLAN OF TREATMENT No Information
--- OUTSIDE RECORDS SUMMARY | 2024-11-21 10:23 | XMS_ITS | Continuity of Care Document ---
Author Organization [facility] Address [address] [place] [address] Phone Care Team Providers Care Vacuum Tank Tender Name Role Phone Preston FINNEY, FACC, [facility] Unavailable Unavailab le Allergies, Adverse Reactions, Alerts Substance Reaction Status Criticality CODEINE PHOSPHATE Unknown Active No Informa tion Medications Medication Instructions Dosage Effective Dates (start - stop) Status Comments Lasix 40 mg tablet take 1 tablet by ora l route every day 40 MG - Active Aldactone 25 mg tablet take 1 tablet by oral route every day 25 MG - Active amlodipine 5 mg tablet take 1 tablet by oral route every day 5 MG - Active tramadol 50 mg tablet take 1 tablet by o ral route every 8 hours as needed 50 MG - Active Pepcid 20 mg tablet take 1 tablet by ora l route every day 20 MG - Active Neurontin 300 mg capsule take 1 capsule by oral route 2 times every day 300 MG - Active Cymbalta 60 mg capsule,delayed release take 1 capsule by oral route every day - Active Procedures Procedure Date LOWER EXTREMITY STUDY Complex e/m visit add on OFFICE/OUTPATIENT VISIT, EST ELECTROCARDIOGRAM REPORT Complex e/m visit add on OFFICE/OUTPATIENT VISIT, EST Advance Directives Directive Yes / No Effective Date File Name No Information Encounters Encounter Description Practice Location Reason(s) For Visit Diagnoses Date Provider Providers Copied on Encounter [facility], [address] [place], [place], [id number] , tel: [phone] [facility] Sikhism No Information 5 Preston Salinas. [address], [place], [place], [id number] , . tel: [phone] [facility], [address] [place] [address], [id number] , tel: [phone] [facility] [place] Essential (primary) hypertensionChest pain, unspecifiedShortness of breathAbnormal electrocardiogram [ECG] [EKG]Unspecified diastolic (congestive) heart failureEdema, unspecified 5 Preston Salinas. [address], [place], [place], [id number] , [place]. tel: [phone] Referring Provider: Brad Johnston, [address], [place], [address] . tel:[phone] OFFICE/OUTPA TIENT VISIT, [facility], [address] [place] [address], [id number] , tel: [phone] [facility] [place] Follow Up of 1 mo (chief complaint) Essential (primary) hypertensionShortnes s of breathDiastolic heart failureEdemaChest pain, unspecified 5 Preston Salinas. [address], [place], [place], [id number] , . tel: [phone] Referring Provider: Brad Johnston, [address], [place], [address] . tel:[phone] [facility], [address] [place] [address], [id number] , tel: [phone] [facility] No Information 5 Randal Peterson. [address], [place], [place], [id number] , [place]. tel: [phone] Referring Provider: Nicholas Cason, [address], [place], [address] . tel:[phone] OFFICE/OUTPA TIENT VISIT, EST [facility], [address] [place] [address], [id number] , tel: [phone] [facility] [place] follow up (chief complaint) Essential (primary) hypertensionShortnes s of breathEdemaDiastolic heart failure 5 Prestonrenata Salinas. [address] [place], [place] [address], [place], [id number] , . tel: [phone] Referring Provider: Brad Johnston, [facility] [address], [place], [address] . tel:[phone] [facility], [address] [place] [address], [id number] , tel: [phone] [facility] [place] No Information 5 [facility] Brad. [address] [place], [place] [address], [place], [id number] , . tel: [phone] [facility], [address] [place] [address], [id number] , tel: [phone] [facility] [place] Chest pain, unspecifiedAbnormal electrocardiogram [ECG] [EKG]Essential (primary) hypertension 5 Prestoncoco Salinas. [address] [place], [place] [address], [place], [id number] , . tel: [phone] Family History Family Member Type Diagnosis Age At Onset No Information Payers Payer name Insurance type Covered green party ID Authoriza tion(s) [facility] [id number] PPO C MB [id number] INS TO BE ADDED [place] [id number] Social History Type Description Quantity Date Captured Comments Sex Female Smoking Status No Information Chief Complaint And Reason For Visit No Information Reason For Referral Reason For Referral No Information Plan Of Treatment Date Type Action Status Appointment Alta Vargas BOOKED Future Order: Radiology Order Du plex scan of lower extremity arteries (94625), Ordered on: Ordered History Of Present Illness Encounter Date Complaint History Of Prese nt Illness Follow Up of 1 mo follow up Functional Status Date Functional Assessmen t No Information Instructions Date Instruction Additional Infor mation No Information Assessments Type Assessment Date No Information Patient Care Teams Name Effective Dates (start - stop) Status Members No Information
[2024-11-23] VITALS (13 sets, daily range): BP systolic 122–144; BP diastolic 60–80; PULSE 87–105; RESP 15–21; TEMP 36.3–37.3; O2SAT 91–100; BMI 28.7
--- NOTE | ~2024-11-23 | US_ITS ---
EXAMINATION: US venous doppler [facility], 11/23/2024 16:21 CDT HISTORY: pain/swelling Comparison: None Technique: Page-scale and color Doppler images were attempted of the lower saphenofemoral junction, common femoral vein,superficial femoral vein, proximal deep femoral vein, proximal deep femoral vein, popliteal vein and posterior tibial veins. Findings: Deep Venous System:Normal flow, augmentation and compressibility. No echogenic thrombus identified. Superficial Venous SystemNo superficial thrombophlebitis. Soft tissues: Soft tissues probable popliteal fossa Gramajo's cyst measures 3 x 4 cm, outpatient MRI recommended Impression: Negative for DVT. Reviewed, dictated and finalized at location A. Impression: Negative for DVT.
--- NOTE | ~2024-11-23 | XR_ITS ---
EXAMINATION: XR chest 2V, 11/23/2024 15:00 CDT HISTORY: SHOB, LE swelling COMPARISON: No comparisons available. Technique: 2 views obtained. Findings: Mild pulmonary venous congestion. No pneumothorax. Mild cardiomegaly. Mediastinal and hilar contours are within normal limits. Kyphoplasty changes noted in the visualized spine. Impression: Mild CHF Reviewed, dictated and finalized at location A. Impression: Mild CHF
--- NOTE | ~2024-11-23 | XR_ITS ---
Examination: XR chest 1V portable Clinical History: rib pain- eval Comparison: 11/23/2024 Technique: Portable AP Findings: Heart size normal. Mild bibasilar atelectasis. Scarring left midlung. Trace effusions not excluded. Mildly increased interstitial markings. No acute bony abnormality identified. IMPRESSION: 1. No significant change from 3 days prior. Reviewed, dictated and finalized at location R.
--- NOTE | ~2024-11-23 | CT_ITS ---
EXAMINATION: CTA chest PE protocol DATE: 11/28/2024 09:49 INDICATION: Shortness of breath. Tachycardia. TECHNIQUE: Computed tomography angiography (CTA) of the chest was performed with 100 mL Omnipaque-350 intravenous contrast timed to evaluate the pulmonary arteries. Coronal maximum intensity projection 3D-reconstructions were created by the technologist. Automated exposure control and iterative reconstruction technique were employed. The dose-length product was 562.66 mGy-cm. COMPARISON: Chest CT 09/06/2024, 10/30/23, 09/07/22 FINDINGS: There is mild emphysema. There is mild atelectasis bilaterally. There is a 2.7 cm part solid nodule in right upper lobe. There is a small right pleural effusion. Cardiomegaly is noted. No pericardial effusion. There is no pulmonary embolus. There is a 3.2 cm cyst in left kidney. There are chronic fractures of T3-L2 vertebral bodies with changes of vertebroplasty at T5, T6, T10, T11, T12, and L1. There is an old healed fracture of right third rib. IMPRESSION: 1. No pulmonary embolus. Sensitivity is mildly decreased by motion artifact. 2. Mild emphysema. 3. 2.7 cm part-solid nodule in right lung upper lobe with worsening from 10/30/2023 suspicious for low-grade adenocarcinoma. 4. Small right pleural effusion. Reviewed, dictated and finalized at location E. IMPRESSION: 1. No pulmonary embolus. Sensitivity is mildly decreased by motion artifact. 2. Mild emphysema. 3. 2.7 cm part-solid nodule in right lung upper lobe with worsening from 024 suspicious for low-grade adenocarcinoma. 4. Small right pleural effusion.
--- NOTE | 2024-11-23 13:51 | ECG_ITS ---
Test Date: 2024-11-23 14:24:25 Measurements Intervals [place] Rate: 88 P: 32 TN: 149 QRS: -9 QRSD: 105 T: 35 QT: 294 QTc: 356 Interpretive Statements SINUS RHYTHM NONSPECIFIC T-WAVE ABNORMALITY ABNORMAL ECG No previous ECG available for comparison Electronically Signed On 11-24-2024 09:34:19 CDT by Serg English M.D.
[2024-11-23 14:07] LABS: Hematocrit 30.1 % (37.0-47.0); Hemoglobin 9.2 g/dL (12.0-15.0); Immature Granulocyte Percent A 1.1 % (0-0.5); Lymphocytes Absolute Auto 1.64 K/mm3 (0.9-3.2); Mean Corpuscular HGB Conc 30.6 g/dl (32-36); Mean Corpuscular Hemoglobin 26.0 pg (26-34); Mean Corpuscular Volume 85.0 fl (80-100); Nucleated Red Blood Cells Absolute Auto 0.000 K/mm3 (0.0-0.012); Nucleated Red Blood Cells Perc 0.0 % (0.0-0.2); Platelet Count Result 445 k/mm3 (150-375); Red Blood Count 3.54 M/mm3 (4.2-5.4); White Blood Count 13.2 K/mm3 (4.5-10.0)
--- OUTSIDE RECORDS SUMMARY | 2024-11-23 14:18 | XMS_ITS | Encounter Summary ---
Author Organization [facility] Address [address] [place] [address] Care Team Providers Care Wafer Slicer Name Role Phone Christofer Merrill MD Primary Care Provider [phone] Taurus Gleason DC Unavailable Yvonne Rae MD Unavailable Encounter Details Date Type Department Care Team (Late st Contact Info) Description 12/13/2023 Lab Requisition [facility] [address] [place] [address] Fili Valentin MD [address] [facility] [address] [place] [address] Anemia, unspecified Social History Tobacco Use [...] - 10.7 x10E9/L 12/13/2023 2:06 PM CDT [facility] RBC Count 4.13 3.90 - 5.20 x10E12/L 12/13/2023 2:06 PM CDT [facility] Hemoglobin 9.9(L) 11.9 - 15.8 g/dL 12/13/2023 2:06 PM CDT [facility] Hematocrit 33.3(L) 34.8 - 46.1 % 12/13/2023 2:06 PM CDT [facility] MCV 80.6 80.0 - 98.0 fL 12/13/2023 2:06 PM CDT [facility] MCH 24.0(L) 26.7 - 33.6 pg 12/13/2023 2:06 PM CDT [facility] MCHC 29.7(L) 31.7 - 36.3 g/dL 12/13/2023 2:06 PM CDT [facility] RDW-CV 17.3(H) 11.3 - 14.8 % 12/13/2023 2:06 PM CDT [facility] Platelet Count 403 150 - 420 x10E9/L 12/13/2023 2:06 PM CDT [facility] MPV 8.6 7.8 - 11.4 fL 12/13/2023 2:06 PM CDT [facility] Blood BLOOD SPECIMEN / Unknown 12/13/2023 12:06 PM CDT 12/13/2023 1:56 PM CDT us Fili Valentin MD LAB - HEMATOLOGY ORDERABLES Fin al Result [facility] [address] [place] [address] documented in this encounter Visit Diagnoses Diagnosis Anemia, unspecified documented in this encounter Care Teams Wafer Slicer Relationship Specialty Start Date End Date Christofer Merrill MD [address] [place] [address] [address] [place] [address] PCP - General Internal Medicine 12/06/11 Taurus Gleason DC [address] [place] [address] Chiropractic 12/13/11 [place] [address] [place] [address] Rheumatology 08/22/17 documented as of this encounter
--- OUTSIDE RECORDS SUMMARY | 2024-11-23 14:18 | XMS_ITS | Encounter Summary ---
Author Organization [facility] Address [address] [facility] [address] [place] [address] Care Team Providers Care Woodworking Bench Carpenter Name Role Phone Unknown, Notinfile Primary Care Provider Unavail able Christofer Merrill MD Primary Care Provider Unknown, Notinfile Primary Care Provider Unavail able Christofer Merrill MD Primary Care Provider Bro Cedeño MD Primary Care Provider [phone] Encounter Details Date Type Department Care Team (Late st Contact Info) Description 02/12/2014 Orders Only [facility] Information Management [address] [place] [address] Amrit Ford MD [address] [address] Social History Tobacco Use Types Packs/Day Years Used Date Smoking Tobacco: Never Assessed Comments Unknown Sex and Gender Information Value Date Recorded Sex Assigned at Not on file 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
--- OUTSIDE RECORDS SUMMARY | 2024-11-23 14:18 | XMS_ITS | Clinical Summary ---
Author Organization [facility] Address [address] [place] [place] [address] Care Team Providers Care Deicer Finisher Name Role Phone Bro Cedeño MD Primary Care Provider [phone] Allergies Active Allergy Reactions Criticality Noted Date [...] Description 10/31/2024 2:30 PM CDT Office Visit [facility] Oncology and Hematology [facility] [address] [place] [address] Fili Valentin MD Chronic anemia (Primary Dx) 10/23/2024 Orders Only [facility] Oncology and Hematology [facility] [address] [place] [address] Fili Valentin MD 10/15/2024 External Device Data [...] st Contact Info) Description 02/11/2025 2:30 PM GROUND CREWMAN Office Visit [facility] Oncology and Hematology - [place] [address] [facility] [address] [place] [address] Fili Valentin MD [address] [facility] [address] [place] [address] Health Maintenance Due Date Last [...] Health Maintenance Insurance MEDICAID [place] Care Teams Deicer Finisher Relationship Specialty Start Date End Date Bro Cedeño MD [address] [place] [address] PCP - General Internal Medicine 03/22/24
--- OUTSIDE RECORDS SUMMARY | 2024-11-23 14:18 | XMS_ITS | Patient Health Record ---
Author Organization [facility] Address [address] [place] [address] Care Team Providers Care Senior Web Engineer Name Role Phone Marivel Porter Primary Care Provider Allergies Allergen (clinical drug ingredient) Drug/Non Drug Allergy documented on EMR Reaction Allergy Type Onset Date Status Codeine Phosphate Unknown Drug Allergy Active codeine Codeine Sulfate Unknown Drug Allergy A ctive Reason For Referral No Information Medications Medication SIG (Take, Route, Frequency, Duration) Notes Start Date End Date Status LaMICtal 25 MG 1 TABLET TWICE A DAY ORALLY 30 DAYS; Duration: 30 Active fluvoxaMINE Maleate 25 MG 1 TABLET AT BEDTIME ORALLY 30 DAYS; Duration: 30 Active Topamax 25 MG 1 tablet Orally once daily neurologist Active HYDROCODONE dose/frequency unknown Active traZODone HCl 50 MG 1-2 tablets Orally at bedtime as needed; Duration: 30 Not-Taking Multivitamin Adult - Orally Not-Taking Omeprazole 20 MG 1 capsule Orally Once a day Active Estradiol 1 MG 1 tablet Orally Once a day Active Cipro 500 MG 1 tablet Orally Twice a day Active ALPRAZolam 1 MG dose/frequency unknown Active fluvoxaMINE Maleate 50 MG 1 tablet at bedtime Orally at bedtime; Duration: 30 days Active Social History Tobacco Use: [...] Status W/U Status Risk Notes Problem Moderate recurrent major depression (09992436) Moderate episode of recurrent major depressive disorder (F33.1) Active confirmed Plan Of Treatment No Information Insurance Providers Payer Name Payer Address Payer Phone Subscriber Number Group Number Insured Name Patient Relationship to Insured Coverage Start Date Coverage End Date MEDICARE PART A [address] [place] [address] [id number] Alicia Alta Self - patient is the insured 7 MEDICAID [address] [place] [address] [id number] Alta Vargas Self - patient is the insured 7 Medical (General) History Surgical History Surgery Date(Month/Year) Cholecystectomy 02/2016
--- OUTSIDE RECORDS SUMMARY | 2024-11-23 14:18 | XMS_ITS | Encounter Summary ---
Author Organization [facility] Health Address [address] [place] [address] Care Team Providers Care Deliverer Merchandise Name Role Phone Christofer Merrill MD Primary Care Provider [phone] Taurus Gleason DC Unavailable Yvonne Rae MD Unavailable Encounter Details Date Type Department Care Team (Late st Contact Info) Description 03/20/2018 [facility] Outpatient Visit [facility] [address] [place] [address] [place] [address] [facility] [address] [place] [address] Social History Tobacco Use Types [...] on filedocumented in this encounter Care Teams Deliverer Merchandise Relationship Specialty Start Date End Date Christofer Merrill MD [address] [place] [address] [address] [place] [address] PCP - General Internal Medicine 12/06/11 Taurus Gleason DC [address] [place] [address] Chiropractic 12/13/11 [place] [address] [address] [place] [address] Rheumatology 08/22/17 documented as of this encounter
--- OUTSIDE RECORDS SUMMARY | 2024-11-23 14:18 | XMS_ITS | Clinical Summary ---
Author Organization [facility] Address [address] [facility] [place] [address] Care Team Providers Care Joy Operator Name Role Phone Christofer Merrill MD Primary Care Provider [phone] Taurus Gleason DC Unavailable Yvonne Rae MD Unavailable Source Comments [facility],non-owned Affiliates and Associated Physician Practices is amultiple site organization consisting of ambulatory clinics and hospital sitesin [place], [place], [place] and [place]. This disclosure is being madepursuant to the Care Everywhere program and may not contain all information available regarding this patient. Last updated 17.[facility] Allergies Active Allergy Reactions Criticality Noted Date [...] Comments Blood Pressure 177/82 03/15/2023 10:34 PM AUTOMATION CONTROL TECHNICIAN Pulse 86 03/15/2023 10:34 PM AUTOMATION CONTROL TECHNICIAN Temperature 36.8 C (98.3 F) 03/15/2023 10:34 PM AUTOMATION CONTROL TECHNICIAN Respiratory Rate 22 03/15/2023 10:34 PM AUTOMATION CONTROL TECHNICIAN Oxygen Saturation 100% 03/15/2023 10:34 PM AUTOMATION CONTROL TECHNICIAN Inhaled Oxygen Concentration - - Weight 65.8 [...] 2006 ZOSTER VACCINE (1 of 2) 2006 DEPRESSION SCREENING 03/13/2024 MEDICARE AWV CALENDAR YEAR 2024 COVID-19 VACCINE ( - season) 2024 INFLUENZA VACCINE (#1) 2024 7, 12/09/2015, [...] Procedure Name Priority Date/Time Associated Diagnosis Comments COMPREHENSIVE METABOLIC PANEL STAT 03/15/2023 4:59 PM AUTOMATION CONTROL TECHNICIAN HEPATITIS SCREEN ACUTE Routine 8 2:35 PM CDT Rheumatoid arthritis involving multiple sites with positive rheumatoid factor Malaise and fatigue from Last 3 Months or Most Recently Relevant to Health Maintenance Results * (ABNORMAL) COMPREHENSIVE METABOLIC PANEL (03/15/2023 4:59 PM [facility]) Pathologist [facility] Glucose 100 70 - 105 mg/dL 03/15/2023 5:33 PM [facility] Sodium 138 136 - 145 mmol/L 03/15/2023 5:33 PM [facility] Potassium 3.8 3.5 - 5.1 mmol/L 03/15/2023 5:33 PM [facility] Chloride 98 98 - 107 mmol/L 03/15/2023 5:33 PM [facility] CO2 28 22 - 29 mmol/L 03/15/2023 5:33 PM [facility] Calcium 10.0 8.4 - 10.4 mg/dL 03/15/2023 5:33 PM [facility] Anion Gap 12 6 - 16 mmol/L 03/15/2023 5:33 PM [facility] BUN 21 7 - 26 mg/dL 03/15/2023 5:33 PM [facility] Creatinine 0.72 0.57 - 1.11 mg/dL 03/15/2023 5:33 PM [facility] Alkaline Phosphatase 99 40 - 150 U/L 03/15/2023 5:33 PM [facility] ALT 17 0 - 55 U/L 03/15/2023 5:33 PM [facility] AST 17 5 - 34 U/L 03/15/2023 5:33 PM [facility] Protein Total 7.6 6.4 - 8.3 gm/dL 03/15/2023 5:33 PM [facility] Albumin 3.3(L) 3.4 - 5.0 gm/dL 03/15/2023 5:33 PM [facility] Bilirubin Total 0.4 0.2 - 1.2 mg/dL 03/15/2023 5:33 PM [facility] eGFR by CKD-EPI >90 >=90 mL/min/1.7 3 m2 03/15/2023 5:33 PM [facility] Blood BLOOD SPECIMEN / Unknown Venipuncture / Unknown 03/15/2023 4:59 PM AUTOMATION CONTROL TECHNICIAN 03/15/2023 5:15 PM AUTOMATION CONTROL TECHNICIAN us Agnes Green APRN-RESEARCH CHEMICAL ENGINEER LAB - CHEMISTRY OR DERABLES Final Result [facility] [address] [place] [address] * HEPATITIS SCREEN ACUTE (08/22/2017 2:35 PM [...] with a HCV Nucleic Acid Amplification test ([id number]). Blood BLOOD SPECIMEN / Unknown 08/22/2017 2:35 PM CDT 08/22/2017 Narrative Resulting Agency Comment [facility] [address] [facility] [phone] us Yvonne Rae MD LAB - CHEMISTRY ORDERABLES Final Result Performing Organization Address City/[facility] Co de Phone Number [facility] INSURANCE BILL [address] [place] [address] from Last 3 Months or Most Recently Relevant to Health Maintenance Insurance [facility] MANAGED MEDICARE ADV MEDICARE SELF PAY NO INSURANCE Member Subscriber Plan / Payer (Ef fective for All Dates) Name:Alta Vargas Member ID:Not on file Relation to Subscriber:Self Name:Alta Vargas Subscriber ID:Not on file Payer ID:Not on file Group ID:Not on file Type:Self Pay Address: [place], [place] Care Teams Joy Operator Relationship Specialty Start Date End Date Christofer Merrill MD [address] [place] [address] PCP - General Internal Medicine 12/06/11 Taurus Gleason DC [address] [place] [address] Chiropractic 12/13/11 [place] [address] [facility] [address] [place] [id number] Rheumatology 08/22/17
--- OUTSIDE RECORDS SUMMARY | 2024-11-23 14:18 | XMS_ITS | Encounter Summary ---
Author Organization [facility] Address [address] [facility] [facility] [address] [place] [address] Care Team Providers Care Scale Agent Name Role Phone Unknown, Froylannfile Primary Care Provider Unavail able Christofer Merrill MD Primary Care Provider Unknown, Froylannfile Primary Care Provider Unavail able Christofer Merrill MD Primary Care Provider Bro Cedeño MD Primary Care Provider [phone] Encounter Details Date Type Department Care Team (Late st Contact Info) Description 02/12/2014 Orders Only [facility] [address] [facility] [address] [place] [address] Christofer Merrill MD [address] [facility] [address] [place] [address] Social History Tobacco Use Types Packs/Day Years Used Date Smoking Tobacco: Never Assessed Comments Unknown Sex and Gender Information Value Date Recorded Sex Assigned at Not on file 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
--- OUTSIDE RECORDS SUMMARY | 2024-11-23 14:19 | XMS_ITS | Patient Health Record ---
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) Problem Spondylolisthesis of lumbar region (M43.16) Active confirmed Acquired spondylolisthesis (755967531) Problem Compression fracture of L1 lumbar vertebra (S32.010A) Active confirmed Problem Age-related osteoporosis with current pathological fracture of vertebra (M80.08XA) Active confirmed Patholog ical fracture of vertebra (494860191) Problem Low back pain of multiple sites of spine with sciatica (M54.40) Active confirmed Sciatica (97717222) Problem Spondylolisthesis (M43.10) Active confirmed Spondylolisthes is (118535969) Problem Compression fracture of body of thoracic vertebra (M48.54XA) Active confirmed Pathological fracture of vertebra (376650882) Problem Age-related osteoporosis with current pathological fracture, vertebra(e), initial encounter for fracture (M80.08XA) Active confirmed Pathological fracture of vertebra (027621838) Problem Thoracic back pain (M54.6) Active confirmed Thoracic back p ain (243845108) Problem Lumbar radiculopathy (M54.16) Active confirmed Lumbar radiculopathy (067316613) VITAL SIGNS Height 64 in 07/30/2024 Weight 125 lbs 07/30/2024 BMI 21.45 kg/m2 07/30/2024 PROCEDURES Procedure Date Ordered Date Performed Result Body Sit e Lumbar Epidural Steroid Injection 04/23/2024 04/23/2024 N/ A Kyphoplasty, Thoracic 04/10/2024 04/10/2024 completed Kyphoplasty, Thoracic 05/06/2024 05/08/2024 completed Lumbar Epidural Steroid Injection 05/16/2024 05/16/2024 N/ A Encounters Encounter Location Date Provider Diagnosis [facility] [address] [address] 03/19/2024 Nitza English Other low back pain M54.59 [facility], [address] [address] 03/21/2024 Nitza English [facility], [address] [address] 04/03/2024 Nitza English Low back pain of multiple sites of spine with sciatica M54.40 ; Thoracic back pain M54.6 and Compression fracture of thoracic vertebra S22.000A [facility], [address] [address] 04/23/2024 Asohk Tovar Compression fracture of body of thoracic vertebra M48.54XA ; Thoracic back pain M54.6 and Other low back pain M54.59 [facility], [address] [address] 05/30/2024 Nitza English Neck pain M54.2 [facility] [address] [facility] [address] [address] 06/19/2024 Nitza English [facility] [address] [address] 06/25/2024 Nitza English Lumbar radiculopathy M54.16 ; Other low back pain M54.59 and Spondylolisthesis of lumbar region M43.16 [facility] [address] [place] [address] 06/25/2024 Nitza English [facility] [address] [place] [address] 07/30/2024 Ashok Rutz [facility] [address] [place] [address] 03/07/2024 Ashok Rutz [facility] [address] [place] [address] 03/07/2024 Ashok Rutz [facility] [address] [address] 04/10/2024 Ashok Rutz Age-related osteoporosis with current pathological fracture, vertebra(e), initial encounter for fracture M80.08XA [facility] [address] [place] [address] 04/10/2024 Ashok Rutz [facility] [address] [place] [address] 04/18/2024 Ashok Rutz [facility] [address] [address] 04/22/2024 Ashok Rutz [facility] [address] [address] 04/23/2024 Ashok Rutz [facility] [address] [address] 04/23/2024 Ashok Rutz [facility] [address] [place] [address] 04/29/2024 Ashok Rutz [facility] [address] [address] 05/03/2024 Ashok Rutz [facility] [address] [place] [address] 05/06/2024 Ashok Rutz [facility] [address] [address] 05/06/2024 Ashok Tovar Compression fracture of thoracic vertebra S22.000A [facility] [address] [place] [address] 05/07/2024 Ashok Tovar [facility] [address] [place] [address] 05/15/2024 Ashok Tovar [facility] [address] [place] [address] 05/16/2024 Ashok Tovar Lumbar radiculopathy M54.16 [facility] [address] [place] [address] 05/16/2024 Ashok Tovar [facility] [address] [place] [address] 05/23/2024 Ashok Tovar [facility] [address] [place] [phone] 05/29/2024 Ashok Tovar [facility] [address] [place] [address] 06/13/2024 Ashok Tovar [facility] [address] [place] [address] 07/08/2024 Ashok Tovar ASSESSMENTS Encounter Date Diagnosis [...] Insured Coverage Start Date Coverage End Date [facility] Medicare Advantage PPO [address] [address] [place] [address] [phone] [id number] Alta Vargas Self - patient is the insured MEDICAL (GENERAL) HISTORY Medical History History ICD Code COPD Rheumatoid arthritis Lung cancer Fibromyalgia IBS Surgical History Surgery Date(Month/Year) Cholecystectomy Tubal ligation Bunionectomy LEEP Procedure D&C Kyphoplasty 03/30/23 Hospitalization History Reason Date(Month/Year) As per above.
--- OUTSIDE RECORDS SUMMARY | 2024-11-23 14:19 | XMS_ITS | Encounter Summary ---
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
--- OUTSIDE RECORDS SUMMARY | 2024-11-23 14:20 | XMS_ITS | Clinical Summary ---
Author Organization [facility] Address [address] [place] [address] Care Team Providers Care Fire Equipment Operator Name Role Phone Bro Cedeño MD Primary Care Provider [phone] Allergies Active Allergy Reactions Criticality Noted Date [...] for 30 minutes. Active ranitidine HCl (ACID AREA COORDINATOR, RANITIDINE, ORAL) 300 mg Active methadone (DOLOPHINE) [...] months. Assessment & Plan (02/23/2018 10:32 AM QUALITY ASSURANCE TECH): A serum TSH is within normal limits. [...] nodules Assessment & Plan (02/22/2018 8:17 AM QUALITY ASSURANCE TECH): Chest CT on February 07, 2018 revealed: 1. Localized Bronchiectasis, 2. Ground-glass opacity in the superior segment of the right lower lobe Unchanged. Follow-up chest CT has already been ordered. Assessment & Plan (01/31/2018 5:24 PM QUALITY ASSURANCE TECH): Follow-up chest CT on February 07, 2018 has shown: 1. Focus of scarring with localized bronchiectasis, linear scarring and very little groundglass opacity in the superior segment of right lower lobe; not significantly changed since 08/04/2017. 2. Old T9 compression fracture. Follow-up chest CT was arranged in 8 months. WILVER (obstructive sleep apnea) 01/31/2018 Assessment & Plan (01/31/2018 5:23 PM QUALITY ASSURANCE TECH): The patient has many clinical features of [...] patient. Assessment & Plan (02/22/2018 8:17 AM QUALITY ASSURANCE TECH): Her BMI is 25.96kg/m2. No significant change in her weight since 8 months ago. Assessment & Plan (01/31/2018 5:21 PM QUALITY ASSURANCE TECH): BMI is 26.50 kg/m2. She states that she has gained about 18 lb over the past 1.5 year. Chronic fatigue 01/31/2018 Assessment & Plan (02/22/2018 8:20 AM QUALITY ASSURANCE TECH): Extensive workup for fatigue has not shown any abnormal findings. Free T4 is borderline and we will repeat the test in 3 months. Etiology of chronic fatigue could be multiple problems including: Fibromyalgia, poorly-controlled rheumatoid arthritis and polypharmacy. Assessment & Plan (01/31/2018 5:36 PM QUALITY ASSURANCE TECH): Patient's chronic fatigue could be due to [...] demonstrated. Assessment & Plan (02/22/2018 8:15 AM QUALITY ASSURANCE TECH): The etiology of shortness of Breath is multifactorial Including emphysema, airway hyperreactivity and bronchiolitis. Today she reports moderate improvement in shortness of breath. She was advised to continue with Stiolto and albuterol inhaler as needed. Assessment & Plan (01/31/2018 5:30 PM QUALITY ASSURANCE TECH): Eighty G of exertional shortness of breath [...] shot. Assessment & Plan (02/22/2018 8:13 AM QUALITY ASSURANCE TECH): Pulmonary function testing and chest CT findings [...] vaccine. Assessment & Plan (01/31/2018 5:40 PM QUALITY ASSURANCE TECH): CT chest has shown eczematous changes and [...] needed. Assessment & Plan (02/23/2018 10:31 AM QUALITY ASSURANCE TECH): Chronic fatigue could be due to rheumatoid arthritis. She was on combination of methotrexate and leflunomide in the past however currently she does not take any medicine. Her blanket weaver started her on Humira a while ago but she has not started it yet. Assessment & Plan (01/31/2018 5:27 PM QUALITY ASSURANCE TECH): Symptoms well controlled. We will continue with [...] on file Legal Sex Female 6:43 PM QUALITY ASSURANCE TECH Gender Identity Not on file Sexual Orientation Not on file Obstetrics History Last Filed Vital Signs Vital Sign Reading Time Taken Comments Blood Pressure 140/74 03/28/2024 1:55 PM QUALITY ASSURANCE TECH Pulse 104 03/28/2024 1:56 PM QUALITY ASSURANCE TECH Temperature 36.3 C (97.3 F) 03/28/2024 1:55 PM QUALITY ASSURANCE TECH Respiratory Rate 18 02/15/2023 1:53 PM QUALITY ASSURANCE TECH Oxygen Saturation 98% 03/28/2024 1:56 PM QUALITY ASSURANCE TECH Inhaled Oxygen Concentration - - Weight 61.7 kg (136 lb) 03/28/2024 1:55 PM QUALITY ASSURANCE TECH Height 152.4 cm (5') 02/05/2024 2:22 PM QUALITY ASSURANCE TECH Body Mass Index 26.56 02/05/2024 2:22 PM QUALITY ASSURANCE TECH Plan of Treatment Health Maintenance Due Date [...] Read Routine (OP Routine) 02/05/2024 2:34 PM QUALITY ASSURANCE TECH Age-related osteoporosis without current pathological fracture HEPATITIS PANEL, ACUTE Routine 01/25/2021 2:40 PM QUALITY ASSURANCE TECH Rheumatoid arthritis, involving unspecified site, unspecified whether rheumatoid factor present (HCC) from Last 3 Months or Most Recently Relevant to Health Maintenance Results * Dexa TBS Axial Skeleton Bone Density 1 or more sites (02/05/2024 2:34 PM QUALITY ASSURANCE TECH) Anatomical Region Laterality Modality Wrist, Body N/A Radiographic Robyn ging Narrative 02/05/2024 2:50 PM QUALITY ASSURANCE TECH Patient Name: Alta Vargas Date of : 1955 Date of scan: 02/05/2024 Bone mineral density was performed on a HoloTerrafugia Discovery Densitometer. Based on machine cross-calibration and [...] by the International Society of Clinical Densitometry. [id number] Figueroa Hickey MD [facility] DXA PROCEDURES Final Re sult * Hepatitis panel, acute (01/25/2021 2:40 PM QUALITY ASSURANCE TECH) Hep A IgM Nonreactive Nonreactive [facility] Comment: Interpretive Data: If Hep A IgM Ab is reported as Equivocal, a new sample should be drawn in two weeks for testing. Current interpretive data was last revised on 19. Hep B core IgM Nonreactive Nonreactive [facility] Comment: Interpretive Data If HepB Core IgM Ab is reported as Equivocal, a new sample should be drawn in two weeks for testing. Current interpretive data was last revised on 19. Hep C Ab Nonreactive Nonreactive [facility] Comment:Antibodies to HCV no t detected. Does NOT exclude the possibility of recent exposure to HCV. HepBsAg Nonreactive Nonreactive [facility] Blood 01/25/2021 2:40 PM QUALITY ASSURANCE TECH 01/25/2021 7:31 PM QUALITY ASSURANCE TECH us Apolonia Wan MD LAB MICROBIOLOGY - GENERAL ORD ERABLES Edited Result - Final [facility] Department [place] [address] from Last 3 Months or Most Recently Relevant to Health Maintenance Insurance [facility] MEDICARE ADVANTAGE MTPA [facility] MEDICARE ADVANTAGE [facility] MEDICARE Address: [address] [address] [place] [address] [employer] MEDICARE ADVANTAGE [facility] MEDICARE Address: [address] [address] [place] [address] Care Teams Fire Equipment Operator Relationship Specialty Start Date End Date Bro Cedeño MD [address] [place] [address] [place] [address] PCP - General Internal Medicine 02/05/24
--- OUTSIDE RECORDS SUMMARY | 2024-11-23 14:20 | XMS_ITS | Encounter Summary ---
Author Organization [facility] Healthcare Address [facility] [place] [address] Care Team Providers Care Oxygen Equipment Preparer Name Role Phone Bro Cedeño MD Primary Care Provider [phone] Reason for Referral * Consultation (Routine) - Authorized Specialty Diagnoses / Procedures Referred By Breanna white Referred To Contact Bone Health Diagnoses Age-related osteoporosis without current pathological fracture Thoracic compression fracture, closed, initial encounter ([facility]) Cervical radiculopathy Thoracic radiculopathy History of rheumatoid arthritis Vesna Beckford MD [address] [place] [address] Phone: tel: fax: [facility] (All Locations) Referral ID Status Reason Start Date Expiration Date Visits Requested Visits Authorized [id number] Authorized Specialty Services Required 01/22/[phone] Question Answer Please select the performing region: [facility] (All Locations) [167] # of [...] compression fracture. L3-4 moderate spinal stenosis. L4-5 [id number] spinal stenosis bilateral facet synovitis. CT scan shows chronic appearing compression fracture T9 with up to 90% height loss mild chronic T10 compression fracture 30% height loss chronic fracture L1. 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
--- OUTSIDE RECORDS SUMMARY | 2024-11-23 14:20 | XMS_ITS | Encounter Summary ---
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
--- OUTSIDE RECORDS SUMMARY | 2024-11-23 14:20 | XMS_ITS | Encounter Summary ---
Author Organization [facility] Health Address [address] [place] [address] Care Team Providers Care House Wrecker Name Role Phone Christofer Merrill MD Primary Care Provider [phone] Taurus Gleason DC Unavailable Yvonne Rae MD Unavailable Encounter Details Date Type Department Care Team (Late st Contact Info) Description 09/08/2017 [facility] Outpatient Visit [facility] [address] [place] [address] [place] [address] [facility] [address] [place] [address] Social History Tobacco Use Types [...] on filedocumented in this encounter Care Teams House Wrecker Relationship Specialty Start Date End Date Christofer Merrill MD [address] [place] [address] [address] [place] [address] PCP - General Internal Medicine 12/06/11 Taurus Gleason DC [address] [place] [address] Chiropractic 12/13/11 [place] [address] [place] [address] [place] [phone] Rheumatology 08/22/17 documented as of this encounter
--- OUTSIDE RECORDS SUMMARY | 2024-11-23 14:20 | XMS_ITS | Encounter Summary ---
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
--- OUTSIDE RECORDS SUMMARY | 2024-11-23 14:20 | XMS_ITS ---
Author Organization [facility] Address [address] [place] [id number] Care Team Providers Care Hris Developer Name Role Phone Bro Cedeño MD Primary Care Provider [phone] Active Problems Problem Noted Date Diagnosed Date [...] months. Assessment & Plan (02/23/2018 10:32 AM MOLYBDENUM STEAMER OPERATOR): A serum TSH is within normal limits. [...] nodules Assessment & Plan (02/22/2018 8:17 AM MOLYBDENUM STEAMER OPERATOR): Chest CT on February 07, 2018 revealed: 1. Localized Bronchiectasis, 2. Ground-glass opacity in the superior segment of the right lower lobe Unchanged. Follow-up chest CT has already been ordered. Assessment & Plan (01/31/2018 5:24 PM MOLYBDENUM STEAMER OPERATOR): Follow-up chest CT on February 07, 2018 has shown: 1. Focus of scarring with localized bronchiectasis, linear scarring and very little groundglass opacity in the superior segment of right lower lobe; not significantly changed since 08/04/2017. 2. Old T9 compression fracture. Follow-up chest CT was arranged in 8 months. WILVER (obstructive sleep apnea) 01/31/2018 Assessment & Plan (01/31/2018 5:23 PM MOLYBDENUM STEAMER OPERATOR): The patient has many clinical features of [...] patient. Assessment & Plan (02/22/2018 8:17 AM MOLYBDENUM STEAMER OPERATOR): Her BMI is 25.96kg/m2. No significant change in her weight since 8 months ago. Assessment & Plan (01/31/2018 5:21 PM MOLYBDENUM STEAMER OPERATOR): BMI is 26.50 kg/m2. She states that she has gained about 18 lb over the past 1.5 year. Chronic fatigue 01/31/2018 Assessment & Plan (02/22/2018 8:20 AM MOLYBDENUM STEAMER OPERATOR): Extensive workup for fatigue has not shown any abnormal findings. Free T4 is borderline and we will repeat the test in 3 months. Etiology of chronic fatigue could be multiple problems including: Fibromyalgia, poorly-controlled rheumatoid arthritis and polypharmacy. Assessment & Plan (01/31/2018 5:36 PM MOLYBDENUM STEAMER OPERATOR): Patient's chronic fatigue could be due to [...] demonstrated. Assessment & Plan (02/22/2018 8:15 AM MOLYBDENUM STEAMER OPERATOR): The etiology of shortness of Breath is multifactorial Including emphysema, airway hyperreactivity and bronchiolitis. Today she reports moderate improvement in shortness of breath. She was advised to continue with Stiolto and albuterol inhaler as needed. Assessment & Plan (01/31/2018 5:30 PM MOLYBDENUM STEAMER OPERATOR): Eighty G of exertional shortness of breath [...] shot. Assessment & Plan (02/22/2018 8:13 AM MOLYBDENUM STEAMER OPERATOR): Pulmonary function testing and chest CT findings [...] vaccine. Assessment & Plan (01/31/2018 5:40 PM MOLYBDENUM STEAMER OPERATOR): CT chest has shown eczematous changes and [...] needed. Assessment & Plan (02/23/2018 10:31 AM MOLYBDENUM STEAMER OPERATOR): Chronic fatigue could be due to rheumatoid arthritis. She was on combination of methotrexate and leflunomide in the past however currently she does not take any medicine. Her automobile washer steam started her on Humira a while ago but she has not started it yet. Assessment & Plan (01/31/2018 5:27 PM MOLYBDENUM STEAMER OPERATOR): Symptoms well controlled. We will continue with [...]
--- OUTSIDE RECORDS SUMMARY | 2024-11-23 14:20 | XMS_ITS | Encounter Summary ---
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
--- OUTSIDE RECORDS SUMMARY | 2024-11-23 14:20 | XMS_ITS | Clinical Summary ---
Author Organization [facility] Address [facility] [place] [address] Care Team Providers Care Albacore Fishing Boat Crewman Name Role Phone Unavailable Primary Care Provider [...] (General) 2021 COVID-19 Vaccine (2023-2 5 season) 2024 RSV Immunization or 60+ Years (1 - [...]
[2024-11-23 14:40] LABS: Alanine Aminotransferase 17 U/L (6-35); Albumin Level 3.1 g/dL (3.5-5.1); Alkaline Phosphatase 124 U/L (38-126); Anion Gap 5 mmol/L (4-12); Aspartate Amino Transferase 34 U/L (14-36); Bilirubin,Total 0.4 mg/dL (0.2-1.3); Blood Urea Nitrogen 7 mg/dL (7-17); Calcium 8.4 mg/dL (8.4-10.2); Carbon Dioxide 34 mmol/L (22-30); Chloride 94 mmol/L (98-107); Estimated CRCL calculation 65 ml/min; Estimated Glomerular Filt Rate > 60; Glucose 98 mg/dL (65-110); Potassium 2.8 mmol/L (3.4-5.0); Sodium 133 mmol/L (137-145); Total Protein 6.4 g/dL (6.3-8.2)
[2024-11-23 14:46] LABS: INR 1.1; Prothrombin Time 14.0 Seconds (11.1-14.7)
[2024-11-23 14:47] LABS: Partial Thromboplastin Time 33.7 Seconds (22.3-36.8)
[2024-11-23 14:48] LABS: NT Pro B Type Natriuretic Pept 1110 pg/mL (19.9-100); Troponin I < 0.012 ng/mL (0.000-0.034)
[2024-11-23 14:59] LABS: Add Urine Microscopic? YES; Appearance Urine Clear (Clear); Glucose Urine UA 3+ mg/dL (Negative); Leukocyte Esterase Ur Negative LEU/UL (Negative); Nitrate Urine Negative (Negative); Non Pathogenic Casts 0-2; Specific Grav Ur 1.020 (1.001-1.035)
[2024-11-23 15:03] LABS: Magnesium 1.9 mg/dL (1.6-2.3)
--- NOTE | 2024-11-23 15:13 | ED.RECABL ---
HPI - Recheck/Abnormal Lab/Rx General Chief Complaint: Recheck/Abnormal Lab/Rx Stated Complaint: fluid retention Time Seen by Provider: 11/23/24 14:01 Source: patient Mode of arrival: ambulatory Limitations: no limitations History of Present Illness HPI narrative: Patient is a 69-year-old female who presents the ED with report of bilateral lower extremity pain and swelling. Patient reports she has been dealing with increased pain/swelling to her lower extremities for the past 1 month. Hx of CHF. She had her Lasix increased by her can vacuum tester from 20 mg to 40 mg daily a couple of weeks ago, but denied improvement. States she has not been urinating much either. Has been having some increased shortness of breath and wheezing as well. History of COPD. Has been using inhalers at home w/o improvement. Denies chest pain. Denies fevers. Does have history of previous blood clots and was on anticoagulation for about 1 year, but is not currently on blood thinners. Related Data Home Medications ?Medication ?Instructions ?Recorded ?Confirmed ?Last Taken ?Type duloxetine 60 mg capsule,delayed 60 mg PO DAILY 05/13/20 11/19/24 11/05/24 History release (Cymbalta) morphine 15 mg immediate release 15 mg PO Q12H PRN Pain (Scale 06/27/23 11/19/24 Unknown History tablet Score 7-10) tramadol 50 mg tablet 50 mg PO Q8H PRN pain 06/27/23 11/19/24 Unknown History cyclobenzaprine 10 mg tablet 10 mg PO DAILY PRN muscle spasm 01/30/24 11/19/24 Unknown History furosemide 20 mg tablet 40 mg PO DAILY 08/23/24 11/19/24 11/05/24 History empagliflozin 10 mg tablet 10 mg PO DAILY 09/03/24 11/19/24 11/05/24 History (Jardiance) losartan 50 mg tablet 50 mg PO BID 09/03/24 11/19/24 11/05/24 History acetaminophen 500 mg capsule 500 mg PO TID PRN pain (scale 11/05/24 11/19/24 Unknown History score 4-6) calcium phosphate,dibasic 77 1 tablet PO DAILY 11/05/24 11/19/24 11/05/24 History mg-vitamin D3 400 unit tablet cetirizine 10 mg tablet 10 mg PO DAILY 11/05/24 11/19/24 11/05/24 History ferrous sulfate 325 mg (65 mg 325 mg PO BID 11/05/24 11/19/24 11/05/24 History iron) tablet (Feosol) multivitamin with minerals-folic 1 tablet PO DAILY 11/05/24 11/19/24 11/05/24 History acid 80 mcg chewable tablet (Centrum Adult 50 Plus) spironolactone 25 mg tablet 25 mg PO DAILY 11/05/24 11/19/24 11/05/24 History Allergies Allergy/AdvReac Type Severity Reaction Status Date / Time codeine Allergy Mild Itching Verified 11/19/24 12:48 Review of Systems Review of Systems: All systems reviewed & are unremarkable except as noted in HPI. All systems reviewed & are unremarkable except as noted in HPI and below PMFSH Past Medical History Medical History Numbness in both hands Cardiac failure Iron deficiency anemia Anemia Peripheral neuropathy Fibromyalgia Superficial gastritis without hemorrhage Spinal stenosis at L4-L5 level Seropositive rheumatoid arthritis of multiple joints Pain in joints Other irritable bowel syndrome Idiopathic hematuria Follicular bronchiolitis Encounter for medication management Diverticulosis of colon Arthralgia of both hands Abnormal urine finding TMJ dysfunction Colon cancer screening Chronic constipation Gastritis Rib pain on right side Chronic nausea RUQ abdominal pain COVID-19 Nonerosive esophageal reflux disease Gastritis determined by endoscopy Diabetes Rheumatoid arthritis Bloating Early satiety Nausea and vomiting Depression Anxiety Chronic, continuous use of opioids Hypothyroidism Rheumatoid arthritis Fibromyalgia IBS (irritable bowel syndrome) COPD (chronic obstructive pulmonary disease) (Unknown) RLS (restless legs syndrome) Surgical History Surgical History History of bunionectomy of both great toes Hx of cholecystectomy History of tubal ligation Family History Family History Mother Family history of Parkinson's disease Sibling Family history of chronic obstructive pulmonary disease Liver cancer Father , natural causes No problems noted. Sibling No problems noted. Social History Social History Social History: Smoking packs per day: 1.5 Smoking cigarettes per day: 30.0 Years smoked: 48 Smoking pack-years: 72.00 Smoking status: Former smoker Tobacco type: cigarettes Second hand tobacco smoke exposure: No Additional smoking assessment comments: quit smoking cigarettes 4 years ago, still vapes Alcohol intake: never Substance use: former Substance use type: marijuana Other substance usage details: Has medical card Do You Feel Safe in your Home?: Yes Lack of Transportation: No Lack of Food: Never True Current Housing: I Have Housing Concerned About Future Housing: No Difficulty Paying Gas/Electric Bills: No Difficulty Paying for Meds: No Currently Unemployed: No Education: High School Diploma/GED Difficulty w/ Childcare or Family Care: No Living arrangements: alone 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 HEAD: Normocephalic, atraumatic. RESPIRATORY: Airway patent, respirations nonlabored. Coarse lung sounds in bases. Diffuse expiratory wheezing in all lung schmitz CARDIOVASCULAR: Regular rate and rhythm without murmurs, rubs, or gallops. Pedal pulses are easily palpable ABDOMINAL: Soft, nontender, nondistended. Normoactive BS. MUSCULOSKELETAL: Moves all extremities. No gross deformities. Diffuse pitting edema throughout bilateral lower extremities up to the thighs, slightly worse throughout right leg. Diffuse tenderness to palpation. Slight erythema to distal right lower leg with minimal warmth. No wounds. SKIN: Warm, dry, normal color. NEURO: A&O X3. Speech clear. Cranial nerves II-XII grossly intact. No ataxic movements. PSYCHIATRIC: Appropriate mood and affect. Normal interaction. Course Vital Signs Vital signs: Vital Signs Temperature 97.6 F 11/23/24 13:02 Pulse Rate 104 H 11/23/24 13:02 Respiratory Rate 11/23/24 13:02 Blood Pressure 140/77 11/23/24 13:02 Pulse Oximetry 95 11/23/24 13:02 Oxygen Delivery Room Air 11/23/24 13:02 Temperature 97.6 F 11/23/24 13:02 Pulse Rate 104 H 11/23/24 16:43 Respiratory Rate 11/23/24 16:43 Blood Pressure 129/69 11/23/24 16:00 Pulse Oximetry 100 11/23/24 16:00 Oxygen Delivery Room Air 11/23/24 13:02 MDM - Recheck/Abnormal Lab/Rx MDM Narrative Medical decision making narrative: Patient presented to ED with increased swelling of lower extremities. Shortness of breath, wheezing, Hx of COPD/CHF. Patient borderline tachycardic upon arrival, in no acute distress. Oxygen stable on room air. Laboratory studies with white blood cell count of 13.2. Mild anemia noted at 9.2. Appears consistent with previous records. CMP with hypokalemia at 2.8. Oral and IV replacement ordered. Mag within normal range. Mild hyponatremia 133. Kidney function is stable. EKG without concerning ST changes. Troponin undetectable. BNP 1110. Chest x-ray with evidence of pulmonary edema. Consistent with acute CHF. Given IV Lasix 40mg. Venous doppler US BLE negative for DVT Given acute redness/warmth of particularly right lower extremity with leukocytosis, will cover for potential cellulitis with cefazolin. Will be admitted for further eval and continued diuresis/electrolyte management. Discussed case with Queenie Salazar HEAVY EQUIPMENT OPERATOR APPRENTICE hospitalist, accepted patient for admission. Patient in agreement with plan. Medical Records Attestation: I reviewed the patient's medical records. Lab Data Attestation: I reviewed the patient's lab results. 11/23/24 13:53 11/23/24 13:53 Labs: Lab Results 11/23/24 11/23/24 Range/Units 13:53 14:49 WBC 13.2 H (4.5-10.0) K/mm3 RBC 3.54 L (4.2-5.4) M/mm3 Hgb 9.2 L (12.0-15.0) g/dL Hct 30.1 L (37.0-47.0) % MCV 85.0 (80-100) fl MCH 26.0 (26-34) pg MCHC 30.6 L (32-36) g/dl RDW 15.8 H (11.5-14.5) % Plt Count 445 H (150-375) k/mm3 MPV 8.7 (7.4-10.4) fl Immature Gran % (Auto) 1.1 H (0-0.5) % Neut % (Auto) 70.6 (45.5-73.1) % Lymph % (Auto) 12.5 L (18.3-44.2) % Boyd % (Auto) 12.3 H (2.6-8.5) % Eos % (Auto) 3.0 (0-4.4) % Baso % (Auto) 0.5 (0.2-1.2) % Lymph # (Auto) 1.64 (0.9-3.2) K/mm3 Boyd # (Auto) 1.6 H (0.1-0.6) K/mm3 Eos # (Auto) 0.4 H (0-0.3) K/mm3 Baso # (Auto) 0.1 (0.0-0.1) K/mm3 Abs Immat Gran (auto) 0.15 H (0.00-0.031) K/mm3 Absolute Neuts (auto) 9.3 H (1.3-6.7) K/mm3 Absolute Nucleated RBC 0.000 (0.0-0.012) K/mm3 Nucleated RBC % 0.0 (0.0-0.2) % PT 14.0 (11.1-14.7) Seconds INR 1.1 APTT 33.7 (22.3-36.8) Seconds Sodium 133 L (137-145) mmol/L Potassium 2.8 L* (3.4-5.0) mmol/L Chloride 94 L (98-107) mmol/L Carbon Dioxide 34 H (22-30) mmol/L Anion Gap 5 (4-12) mmol/L BUN 7 D (7-17) mg/dL Creatinine 0.66 L (0.7-1.0) mg/dL Estim Creat Clear Calc 65 ml/min Estimated GFR > 60 (59 - ) Glucose 98 (65-110) mg/dL Calcium 8.4 (8.4-10.2) mg/dL Magnesium 1.9 (1.6-2.3) mg/dL Total Bilirubin 0.4 (0.2-1.3) mg/dL AST 34 (14-36) U/L ALT 17 (6-35) U/L Alkaline Phosphatase 124 (38-126) U/L Troponin I < 0.012 (0.000-0.034) ng/mL NT-Pro-B Natriuret Pep 1110 H (19.9-100) pg/mL Total Protein 6.4 (6.3-8.2) g/dL Albumin 3.1 L (3.5-5.1) g/dL Urine Color Yellow (Yellow) Urine Appearance Clear (Clear) Urine pH 6.0 (5.0-9.0) Ur Specific [place] 1.020 (1.001-1.035) Urine Protein Negative (Negative) mg/dL Urine Glucose (UA) 3+ H (Negative) mg/dL Urine Ketones Negative (Negative) mg/dL Ur Blood (Man) Trace (Negative) Urine Nitrate Negative (Negative) Urine Bilirubin Negative (Negative) Urine Urobilinogen 1.0 (<2.0) mg/dL Leukocyte Esterase Rfl Negative (Negative) SUZAN/UL Urine RBC 0-2 (0-2) /hpf Urine WBC 0-5 (0-3) /hpf Ur Squamous Epith Cells None seen (Few) /hpf Urine Bacteria None seen /hpf Urine Casts 0-2 Imaging Data Attestation: I personally reviewed and interpreted this imaging study as follows: Radiologist's impression: ITS Impressions Chest X-Ray 11/23/24 15:52 Impression: Mild CHF Venous Doppler Study 11/23/24 16:37 Impression: Negative for DVT. ECG Data EKG #1: Attestation: I personally reviewed and interpreted this ECG as follows: ECG completion date: 11/23/24 ECG completion time: 14:24 EKG Interpretation: normal rate (88), sinus rhythm and non-specific ST changes Discharge Plan Discharge Clinical Impression: Swelling of both lower extremities, Cellulitis of right lower extremity, Hypokalemia Acute exacerbation of CHF (congestive heart failure) Qualifiers: Heart failure type: unspecified Qualified Code(s): I50.9 - Heart failure, unspecified Patient Disposition: Still a Patient Condition: Stable Patient Language: Bahamian Prescriptions: No Action furosemide 20 mg tablet 40 mg PO DAILY levothyroxine [Synthroid] 75 mcg tablet 75 mcg PO DAILY Qty: 90 1RF cyclobenzaprine 10 mg tablet 10 mg PO DAILY PRN (Reason: muscle spasm) albuterol sulfate 2.5 mg /3 mL (0.083 %) solution for nebulization 2.5 mg inhalation Q4-6H PRN (Reason: shortness of breath or wheezing) Qty: 90 3RF albuterol sulfate 90 mcg/actuation HFA aerosol inhaler 2 inh inhalation Q4H PRN (Reason: shortness of breath or wheezing) Qty: 8.5 6RF Spiriva Respimat 2.5 mcg/actuation mist 2 inh inhalation QAM Qty: 4 5RF duloxetine [Cymbalta] 60 mg capsule,delayed release(DR/EC) 60 mg PO DAILY morphine 15 mg tablet 15 mg PO Q12H PRN (Reason: Pain (Scale Score 7-10)) tramadol 50 mg tablet 50 mg PO Q8H PRN (Reason: pain) losartan 50 mg tablet 50 mg PO BID Jardiance 10 mg tablet 10 mg PO DAILY acetaminophen 500 mg capsule 500 mg PO TID PRN (Reason: pain (scale score 4-6)) cetirizine 10 mg tablet 10 mg PO DAILY spironolactone 25 mg tablet 25 mg PO DAILY ferrous sulfate [Feosol] 325 mg (65 mg iron) tablet 325 mg PO BID calcium phos,dibas-vitamin D3 77-400 mg-unit tablet 1 tablet PO DAILY Centrum Adult 50 Plus 80 mcg tablet,chewable 1 tablet PO DAILY amitriptyline 10 mg tablet 10 mg PO QHS Qty: 90 3RF pramipexole 0.25 mg tablet See Rx Instructions .ROUTE .COMPLEX Qty: 270 2RF Dose Instruction: TAKE 1 TABLET BY MOUTH THREE TIMES A DAY *MAY BE TAKEN 1 TAB IN THE MORNING AND 2 TABS AT BEDTIME Rx Instructions: TAKE 1 TABLET BY MOUTH THREE TIMES A DAY *MAY BE TAKEN 1 TAB IN THE MORNING AND 2 TABS AT BEDTIME budesonide-formoterol 160-4.5 mcg/actuation HFA aerosol inhaler 2 puff inhalation Q12H Qty: 10.2 6RF ondansetron HCl 4 mg tablet 4 mg PO Q8H PRN (Reason: nausea and vomiting) Qty: 30 0RF Follow-up/Referrals: PHYSICIAN NOT ON STAFF,NONSTAFF [Primary Care Provider]
[2024-11-23] MEDS: POTASSIUM CHLORIDE INJ 40 MEQ in SODIUM CHLORIDE 0.9% IV 500 ML 130 MEQ IVPB (15:26)
[2024-11-23] MEDS: IPRATROPIUM BR 0.02% INH SOLN 0.5 MG/2.5 ML VIAL 1.5 MG INHALATION (15:29)
[2024-11-23] MEDS: POTASSIUM CHLORIDE 20 MEQ ER TABLET 40 MEQ PO (15:32)
[2024-11-23] MEDS: ceFAZolin 1 GM in SODIUM CHLORIDE 0.9% IV 50 ML 100 ML IVPB (16:36)
[2024-11-23] MEDS: FUROSEMIDE INJ 40 MG/4 ML VIAL IV PUSH (17:53)
[2024-11-23] MEDS: FAMOTIDINE 20 MG/2 ML VIAL IV PUSH (17:55)
[2024-11-23] MEDS: PRAMIPEXOLE 0.25 MG TABLET PO (18:20)
--- NOTE | 2024-11-23 19:14 | PM.IMHP ---
H&P: HPI History of Present Illness Date/Time: 11/23/24 19:14 Chief Complaint: Lower Extremity Edema Narrative: 69 y/o F with PMH of CHF, COPD, iron deficiency anemia, fibromyalgia, IBS, GERD, diabetes, rheumatoid arthritis, depression, anxiety, hypothyroidism, and restless leg syndrome presents here with lower extremity edema. The patient presents here from home on 11/23 for further evaluation of bilateral lower extremity edema and pain. She reports the lower extremity edema has been ongoing for the past month. She reports ?? Increased her daily Lasix from 20 mg to 40 mg a few weeks ago. She denies any improvement with increased diuresis. However, she reports she has overall not been urinating as much. Patient was additionally seen at [place] on 11/18 for a fall, at that time she was told to increase her Lasix to 80 mg x 4 days, however she did not follow these instructions. Lower extremity edema is now also accompanied by increased shortness of breath and wheezing x1 day. She has been utilizing her home inhalers with minimal improvement, has a history of COPD. She denies associated productive cough, fever, chills, body aches, rhinorrhea, nausea, vomiting, or diarrhea. Initial VS at presentation: 97.6? F, HR 104, RR 20, 140/77, and 95% on RA. ED workup showed: WBC 13.2, hemoglobin 9.2 (11.4 on 07/23/2024), normal coags, potassium 2.8, creatinine 0.66 and GFR >60, BNP 1110, albumin 3.1, UA showed 3+ glucose otherwise unremarkable. CXR showed mild CHF. US of the BLE negative for DVT. Review of Systems Review of Systems: All systems reviewed & are unremarkable except as noted in HPI and below [facility] Past Medical History Medical History HTN (hypertension) CHF (congestive heart failure) Iron deficiency anemia Peripheral neuropathy Fibromyalgia Superficial gastritis without hemorrhage Spinal stenosis at L4-L5 level Seropositive rheumatoid arthritis of multiple joints Pain in joints Idiopathic hematuria Follicular bronchiolitis Encounter for medication management Diverticulosis of colon Arthralgia of both hands TMJ dysfunction Colon cancer screening Chronic constipation Chronic nausea COVID-19 Nonerosive esophageal reflux disease Gastritis determined by endoscopy Diabetes Rheumatoid arthritis Depression Anxiety Chronic, continuous use of opioids Hypothyroidism IBS (irritable bowel syndrome) COPD (chronic obstructive pulmonary disease) (Unknown) RLS (restless legs syndrome) Surgical History Surgical History History of bunionectomy of both great toes Hx of cholecystectomy History of tubal ligation Family History Family History Mother Family history of Parkinson's disease Sibling Family history of chronic obstructive pulmonary disease Liver cancer Father , natural causes No problems noted. Sibling No problems noted. Social History Social History Social History: Smoking packs per day: 1.5 Smoking cigarettes per day: 30.0 Years smoked: 48 Smoking pack-years: 72.00 Smoking status: Former smoker Tobacco type: cigarettes Second hand tobacco smoke exposure: No Additional smoking assessment comments: quit smoking cigarettes 4 years ago, still vapes Alcohol intake: never Substance use: never Substance use type: marijuana Other substance usage details: Has medical card Do You Feel Safe in your Home?: Yes Lack of Transportation: No Lack of Food: Never True Current Housing: I Have Housing Concerned About Future Housing: No Difficulty Paying Gas/Electric Bills: No Difficulty Paying for Meds: No Currently Unemployed: No Education: High School Diploma/GED Difficulty w/ Childcare or Family Care: No Living arrangements: alone 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 Gender identity (if verbalized by the patient): Female Sexual Orientation (if Verbalized by the Patient): Straight or Heterosexual Spiritual care concerns: No Meds Home Medications and Allergies Home Medications ?Medication ?Instructions ?Recorded ?Confirmed ?Type duloxetine 60 mg capsule,delayed 60 mg PO DAILY 05/13/20 11/23/24 History release (Cymbalta) morphine 15 mg immediate release 15 mg PO Q12H PRN Pain (Scale 06/27/23 11/23/24 History tablet Score 7-10) tramadol 50 mg tablet 50 mg PO Q8H PRN pain 06/27/23 11/23/24 History albuterol sulfate 2.5 mg/3 mL 2.5 mg (3 mL) inhalation Q4-6H PRN 01/30/24 11/23/24 Rx (0.083 %) solution for nebulization shortness of breath or wheezing #90 mL cyclobenzaprine 10 mg tablet 10 mg PO DAILY PRN muscle spasm 01/30/24 11/23/24 History Synthroid 75 mcg tablet 75 mcg PO DAILY #90 tabs 05/14/24 11/23/24 Rx (levothyroxine) amitriptyline 10 mg tablet 10 mg PO QHS #90 tabs 06/20/24 11/23/24 Rx pramipexole 0.25 mg tablet See Rx Instructions .Route 07/17/24 11/23/24 Rx .COMPLEX #270 tabs budesonide-formoterol HFA 160 2 puff inhalation Q12H #10.2 grams 07/25/24 11/23/24 Rx mcg-4.5 mcg/actuation aerosol inhaler furosemide 20 mg tablet 40 mg PO DAILY 08/23/24 11/23/24 History empagliflozin 10 mg tablet 10 mg PO DAILY 09/03/24 11/23/24 History (Jardiance) losartan 50 mg tablet 50 mg PO BID 09/03/24 11/23/24 History ondansetron HCl 4 mg tablet 4 mg PO Q8H PRN nausea and 09/05/24 11/23/24 Rx vomiting #30 tabs albuterol sulfate 90 mcg/actuation 2 inh inhalation Q4H PRN shortness 10/14/24 11/23/24 Rx aerosol inhaler of breath or wheezing #8.5 grams tiotropium bromide 2.5 2 inh inhalation QAM #4 grams 10/14/24 11/23/24 Rx mcg/actuation mist for inhalation (Spiriva Respimat) acetaminophen 500 mg capsule 500 mg PO TID PRN pain (scale 11/05/24 11/23/24 History score 4-6) calcium phosphate,dibasic 77 1 tablet PO DAILY 11/05/24 11/23/24 History mg-vitamin D3 400 unit tablet cetirizine 10 mg tablet 10 mg PO DAILY 11/05/24 11/23/24 History ferrous sulfate 325 mg (65 mg 325 mg PO BID 11/05/24 11/23/24 History iron) tablet (Feosol) multivitamin with minerals-folic 1 tablet PO DAILY 11/05/24 11/23/24 History acid 80 mcg chewable tablet (Centrum Adult 50 Plus) spironolactone 25 mg tablet 25 mg PO DAILY 11/05/24 11/23/24 History Allergies Allergy/AdvReac Type Severity Reaction Status Date / Time codeine Allergy Mild Itching Verified 11/19/24 12:48 Vital Signs Vital Signs - 24 hr 11/23/24 13:02 11/23/24 13:35 11/23/24 14:00 Temperature 97.6 F Pulse Rate 104 H 89 Respiratory Rate 20 16 15 Blood Pressure 140/77 128/65 Pulse Oximetry 95 97 97 Oxygen Delivery Room Air 11/23/24 15:00 11/23/24 15:35 11/23/24 16:00 Temperature Pulse Rate 89 91 87 Respiratory Rate 19 19 21 H Blood Pressure 127/60 129/69 Pulse Oximetry 97 100 Oxygen Delivery 11/23/24 16:43 11/23/24 17:30 11/23/24 19:00 Temperature 97.9 F Pulse Rate 104 H 92 94 Respiratory Rate 20 20 17 Blood Pressure 136/70 130/68 Pulse Oximetry 100 91 Oxygen Delivery Exam Const: General: comfortable and no acute distress Other: , female, nontoxic appearance HENMT: Face/Nose/Sinus: Normal nares present Mouth: Yes moist mucous membranes Eyes: General: appearance normal, both eyes and all related structures Sclera: sclerae normal Pupils: Equal, round and reactive pupils present EOM: EOMs intact bilaterally Resp: Effort & Inspection: normal respiratory effort Other: Scattered wheezing, faint. No crackles or rub appreciated. No increased work of breathing. Cardio: Rate: regular rate Rhythm: regular rhythm Other: S1-S2 present without murmur, rub, ectopy GI: Other: Abdomen soft, nondistended, nontender. Normoactive bowel sounds in all quadrants. Skin: General skin exam: normal color and no rashes or lesions noted Wounds: no wounds Neuro: Speech: normal speech Motor exam (neuro): 5/5 motor strength present throughout Sensory Exam: normal sensation Other: A&O x4 Extrem: Other: 2+ pitting edema to bilateral lower extremities extending from knees to ankles, symmetric. No associated erythema. Psych: Mental Status: mental status grossly normal Affect: normal affect Other: Good insight and judgment, pleasant H&P: Results Labs Labs: Short CBC 11/23/24 Range/Units 13:53 WBC 13.2 H (4.5-10.0) K/mm3 Hgb 9.2 L (12.0-15.0) g/dL Hct 30.1 L (37.0-47.0) % Plt Count 445 H (150-375) k/mm3 BMP 11/23/24 13:53 Sodium 133 L Potassium 2.8 L* Chloride 94 L Carbon Dioxide 34 H BUN 7 D Creatinine 0.66 L Glucose 98 Calcium 8.4 Cardiac Enzymes 11/23/24 Range/Units 13:53 Troponin I < 0.012 (0.000-0.034) ng/mL Liver Function 11/23/24 Range/Units 13:53 Total Bilirubin 0.4 (0.2-1.3) mg/dL AST 34 (14-36) U/L ALT 17 (6-35) U/L Alkaline Phosphatase 124 (38-126) U/L Albumin 3.1 L (3.5-5.1) g/dL Urine 11/23/24 Range/Units 14:49 Urine Color Yellow (Yellow) Urine Appearance Clear (Clear) Urine pH 6.0 (5.0-9.0) Ur Specific Central 1.020 (1.001-1.035) Urine Protein Negative (Negative) mg/dL Urine Glucose (UA) 3+ H (Negative) mg/dL Assessment and Plan Assessment and plan (1) Acute exacerbation of CHF (congestive heart failure): Qualifiers: Heart failure type: unspecified Qualified Code(s): I50.9 - Heart failure, unspecified Code(s): I50.9 - Heart failure, unspecified Status: Acute Assessment and Plan: - BNP 1110 - CXR: Mild CHF - US BLE: no DVT - most recent echo, OSH (08/2024): Normal LV systolic function, estimated EF 65%, valvular disease noted her. See report for details. - reported a recent increase in her Lasix PO from 20 mg to 40 mg a few weeks ago with no improvement, continue as 40 mg b.i.d. IV with extra 40 mg x1. Continue home spironolactone. - monitor I&Os and daily weights - trend renal function (2) COPD (chronic obstructive pulmonary disease): Onset Date: Unknown Qualifiers: COPD type: unspecified COPD Qualified Code(s): J44.9 - Chronic obstructive pulmonary disease, unspecified Code(s): J44.9 - Chronic obstructive pulmonary disease, unspecified Status: Chronic Assessment and Plan: - wheezing on exam, scattered. No increased sputum production. - DuoNeb scheduled - continue home inhalers (3) Diabetes: Qualifiers: Diabetes mellitus complication status: without complication Diabetes mellitus nursing home insulin use: without nursing home use Diabetes mellitus type: type 2 Qualified Code(s): E11.9 - Type 2 diabetes mellitus without complications Code(s): E11.9 - Type 2 diabetes mellitus without complications Status: Chronic Assessment and Plan: - hypoglycemia protocol - POC blood glucose ACHS - home medication: Jardiance - correct regimen ordered - moderate dose TIDWM, based off BMI - A1C 5.8% on 11/06/24 (4) Iron deficiency anemia: Qualifiers: Iron deficiency anemia type: unspecified iron deficiency Qualified Code(s): D50.9 - Iron deficiency anemia, unspecified Code(s): D50.9 - Iron deficiency anemia, unspecified Status: Acute Assessment and Plan: - Hgb 9.2 - baseline 9-11, more recently 11.4 on 07/23. - transfuse if <7 (5) Rheumatoid arthritis: Qualifiers: Rheumatoid arthritis location: multiple sites Rheumatoid factor presence: with rheumatoid factor Qualified Code(s): M05.79 - Rheumatoid arthritis with rheumatoid factor of multiple sites without organ or systems involvement Code(s): M06.9 - Rheumatoid arthritis, unspecified Status: Acute Assessment and Plan: - continue home medication(s) (6) Hypothyroidism (acquired): Code(s): E03.9 - Hypothyroidism, unspecified Status: Acute Assessment and Plan: - TSH 1.82 on 11/20/2024 - continue Synthroid (7) HTN (hypertension): Qualifiers: Hypertension type: primary hypertension Qualified Code(s): I10 - Essential (primary) hypertension Code(s): I10 - Essential (primary) hypertension Status: Acute Assessment and Plan: - chronic, currently 130/68 - continue home medications: Losartan, spironolactone - monitor Plan Diet: heart healthy GI Prophylaxis: n/a DVT Prophylaxis: Lovenox SQ IV fluids: none, diuresing Lines/Tubes: peripheral IV Code Status: full code Quality VTE Prophylaxis VTE prophylaxis: pharmacologic ordered Hospitalist MIPS Advance Care Plan I have confirmed that the patient's Advanced Care Plan is present, code status is documented, or surrogate decision maker is listed in patient medical record.: Yes Medication Reconciliation I have utilized all available resources to obtain, update and review the patients current medications (includes all prescriptions, OTC, herbals, cannabis, and nutritional supplements).: Yes
[2024-11-23] MEDS: IPRATROPIUM 0.5 MG/ALBUTEROL SULFATE 2.5 MG AMPUL.NEB 3 ML INHALATION (20:07)
--- NOTE | 2024-11-23 20:44 | ADMGEN ---
This patient, Alta Vargas, was admitted to 2 Medical Room 242-. Patient/family oriented to hospital policies and general routines including ID bracelet, bed and alarms, visiting hours, pain management, procedures, bathroom and other care routines, personal items, smoking policy, room service/diet, and visiting hours. Information on how to activate the Rapid Response Team has been discussed. Patient/Family are encouraged to report perceived risks to care and to ask questions if they do not understand what they are told or what they should do.
[2024-11-23 21:59] LABS: Anion Gap 7 mmol/L (4-12); Blood Urea Nitrogen 6 mg/dL (7-17); Calcium 8.6 mg/dL (8.4-10.2); Carbon Dioxide 32 mmol/L (22-30); Chloride 94 mmol/L (98-107); Estimated CRCL calculation 66 ml/min; Estimated Glomerular Filt Rate > 60; Glucose 138 mg/dL (65-110); Potassium 3.1 mmol/L (3.4-5.0); Sodium 133 mmol/L (137-145)
[2024-11-24] VITALS (15 sets, daily range): BP systolic 114–126; BP diastolic 52–63; PULSE 75–107; RESP 16–18; TEMP 36.7–37.1; O2SAT 95
[2024-11-24] MEDS: AMITRIPTYLINE HCL 10 MG TABLET PO ×2 (00:24→21:33)
[2024-11-24] MEDS: FUROSEMIDE INJ 40 MG/4 ML VIAL IV PUSH ×3 (00:25→21:33)
[2024-11-24] MEDS: ALBUMIN HUMAN 25% 25 GM/100 ML 100 ML IVPB ×4 (00:25→18:18)
[2024-11-24] MEDS: traMADol HCL (*CRX) 50 MG TABLET PO (01:03)
[2024-11-24] MEDS: LEVOTHYROXINE SODIUM 75 MCG TABLET PO (05:31)
[2024-11-24 05:32] LABS: Alanine Aminotransferase 13 U/L (6-35); Albumin Level 3.6 g/dL (3.5-5.1); Alkaline Phosphatase 114 U/L (38-126); Anion Gap 9 mmol/L (4-12); Aspartate Amino Transferase 27 U/L (14-36); Bilirubin,Total 0.6 mg/dL (0.2-1.3); Blood Urea Nitrogen 7 mg/dL (7-17); Calcium 8.6 mg/dL (8.4-10.2); Carbon Dioxide 34 mmol/L (22-30); Chloride 91 mmol/L (98-107); Estimated CRCL calculation 67 ml/min; Estimated Glomerular Filt Rate > 60; Glucose 88 mg/dL (65-110); Potassium 3.0 mmol/L (3.4-5.0); Sodium 134 mmol/L (137-145); Total Protein 6.7 g/dL (6.3-8.2)
[2024-11-24 05:40] LABS: Hematocrit 29.9 % (37.0-47.0); Hemoglobin 9.0 g/dL (12.0-15.0); Immature Granulocyte Percent A 1.4 % (0-0.5); Lymphocytes Absolute Auto 1.31 K/mm3 (0.9-3.2); Mean Corpuscular HGB Conc 30.1 g/dl (32-36); Mean Corpuscular Hemoglobin 25.9 pg (26-34); Mean Corpuscular Volume 85.9 fl (80-100); Nucleated Red Blood Cells Absolute Auto 0.000 K/mm3 (0.0-0.012); Nucleated Red Blood Cells Perc 0.0 % (0.0-0.2); Platelet Count Result 451 k/mm3 (150-375); Red Blood Count 3.48 M/mm3 (4.2-5.4); White Blood Count 11.4 K/mm3 (4.5-10.0)
--- NOTE | 2024-11-24 07:02 | P.PNIM_ITS ---
Progress Note: A&P Assessment and Plan (1) Acute exacerbation of CHF (congestive heart failure): Qualifiers: Heart failure type: unspecified Qualified Code(s): I50.9 - Heart failure, unspecified Code(s): I50.9 - Heart failure, unspecified Status: Acute Assessment and Plan: - BNP 1110 - CXR: Mild CHF - US BLE: no DVT - most recent echo, OSH (08/2024): Normal LV systolic function, estimated EF 65%, valvular disease noted her. See report for details. - reported a recent increase in her Lasix PO from 20 mg to 40 mg a few weeks ago with no improvement, continue as 40 mg b.i.d. IV with extra 40 mg x1. Continue home spironolactone. - monitor I&Os and daily weights - trend renal function reports that cardiology stopped her spironolactone (2) COPD (chronic obstructive pulmonary disease): Onset Date: Unknown Qualifiers: COPD type: unspecified COPD Qualified Code(s): J44.9 - Chronic obstructive pulmonary disease, unspecified Code(s): J44.9 - Chronic obstructive pulmonary disease, unspecified Status: Chronic Assessment and Plan: - wheezing on exam, scattered. No increased sputum production. - DuoNeb scheduled - continue home inhalers (3) Diabetes: Qualifiers: Diabetes mellitus complication status: without complication Diabetes mellitus fpc insulin use: without fpc use Diabetes mellitus type: type 2 Qualified Code(s): E11.9 - Type 2 diabetes mellitus without c omplications Code(s): E11.9 - Type 2 diabetes mellitus without complications Status: Chronic Assessment and Plan: - hypoglycemia protocol - POC blood glucose ACHS - home medication: Jardiance - correct regimen ordered - moderate dose TIDWM, based off BMI - A1C 5.8% on 11/06/24 (4) Iron deficiency anemia: Qualifiers: Iron deficiency anemia type: unspecified iron deficiency Qualified Code(s): D50.9 - Iron deficiency anemia, unspecified Code(s): D50.9 - Iron deficiency anemia, unspecified Status: Acute Assessment and Plan: - Hgb 9.2 - baseline 9-11, more recently 11.4 on 07/23. - transfuse if <7 (5) Rheumatoid arthritis: Qualifiers: Rheumatoid arthritis location: multiple sites Rheumatoid factor presence: with rheumatoid factor Qualified Code(s): M05.79 - Rheumatoid arthritis with rheumatoid factor of multiple sites without organ or systems involvement Code(s): M06.9 - Rheumatoid arthritis, unspecified Status: Acute Assessment and Plan: - continue home medication(s) (6) Hypothyroidism (acquired): Code(s): E03.9 - Hypothyroidism, unspecified Status: Acute Assessment and Plan: - TSH 1.82 on 11/20/2024 - continue Synthroid (7) HTN (hypertension): Qualifiers: Hypertension type: primary hypertension Qualified Code(s): I10 - Essential (primary) hypertension Code(s): I10 - Essential (primary) hypertension Status: Acute Assessment and Plan: - chronic, currently 130/68 - continue home medications: Losartan, spironolactone - monitor (8) Hypokalemia: Code(s): E87.6 - Hypokalemia Status: Acute Assessment and Plan: noted K 2.8- IC and po replaced- will order daily replacement as on IV lasix -monitor closely with daily labs Plan Diet: heart healthy GI Prophylaxis: n/a DVT Prophylaxis: Lovenox SQ IV fluids: none, diuresing Lines/Tubes: peripheral IV Code Status: full code Time Spent With Patient Time with patient: Greater than 35 minutes Subjective Date/time seen: 11/24/24 07:02 Interval history: 69 y/o F with PMH of CHF, COPD, iron deficiency anemia, fibromyalgia, IBS, GERD, diabetes, rheumatoid arthritis, depression, anxiety, hypothyroidism, and restless leg syndrome presents here with lower extremity edema. The patient presents here from home on 11/23 for further evaluation of bilateral lower extremity edema and pain, recent increased in herdaily Lasix from 20 mg to 40 mg a few weeks ago. She denies any improvement with increased diuresis. However, she reports she has overall not been urinating as much. Patient was additionally seen at [place] on 11/18 for a fall, at that time she was told to increase her Lasix to 80 mg x 4 days, however she did not follow these instructions. Lower extremity edema is now also accompanied by increased shortness of breath and wheezing x1 day. She has been utilizing her home inhalers with minimal improvement, has a history of COPD. She denies associated productive cough, fever, chills, body aches, rhinorrhea, nausea, vomiting, or diarrhea. Initial VS at presentation: 97.6? F, HR 104, RR 20, 140/77, and 95% on RA. ED workup showed: WBC 13.2, hemoglobin 9.2 (11.4 on 07/23/2024), normal coags, potassium 2.8, creatinine 0.66 and GFR >60, BNP 1110, albumin 3.1, UA showed 3+ glucose otherwise unremarkable. CXR showed mild CHF. US of the BLE negative for DVT. Pt is seen and examined. Doppler done- No DVT. Lasix 40 mg IV bid. She is resting in bed, eyes closed. Bruising noted to rt clavicle, pt reports she had a fall recently and has clavicle fx. no sob, no leg swelling noted. Review of Systems Review of Systems: All systems reviewed & are unremarkable except as noted in HPI and below Exam Const: General: comfortable and no acute distress Other: , female, nontoxic appearance HENMT: Face/Nose/Sinus: Normal nares present Mouth: Yes moist mucous membranes Eyes: General: appearance normal, both eyes and all related structures Sclera: sclerae normal Pupils: Equal, round and reactive pupils present EOM: EOMs intact bilaterally Resp: Effort & Inspection: normal respiratory effort Other: Scattered wheezing, faint. No crackles or rub appreciated. No increased work of breathing. Cardio: Rate: regular rate Rhythm: regular rhythm Other: S1-S2 present without murmur, rub, ectopy GI: Other: Abdomen soft, nondistended, nontender. Normoactive bowel sounds in all quadrants. Skin: General skin exam: normal color and no rashes or lesions noted Wounds: no wounds Neuro: Cranial nerves: Yes Equal, round and reactive pupils present Speech: normal speech Motor exam (neuro): 5/5 motor strength present throughout Sensory Exam: normal sensation Other: A&O x4 Extrem: Other: 2+ pitting edema to bilateral lower extr emities extending from knees to ankles, symmetric. No associated erythema. Psych: Mental Status: mental status grossly normal Affect: normal affect Other: Good insight and judgment, pleasant Objective Data Vital Signs Vital Signs: Vital Signs - 24 hr 11/23/24 13:02 11/23/24 13:35 11/23/24 14:00 Temperature 97.6 F Pulse Rate 104 H 89 Respiratory Rate 20 16 15 Blood Pressure 140/77 128/65 Pulse Oximetry 95 97 97 Oxygen Delivery Room Air 11/23/24 15:00 11/23/24 15:35 11/23/24 16:00 Temperature Pulse Rate 89 91 87 Respiratory Rate 19 19 21 H Blood Pressure 127/60 129/69 Pulse Oximetry 97 100 Oxygen Delivery 11/23/24 16:43 11/23/24 17:30 11/23/24 19:00 Temperature 97.9 F Pulse Rate 104 H 92 94 Respiratory Rate 20 20 17 Blood Pressure 136/70 130/68 Pulse Oximetry 100 91 Oxygen Delivery 11/23/24 20:09 11/23/24 20:10 11/23/24 20:13 Temperature 97.4 F L Pulse Rate 94 93 93 Respiratory Rate 19 16 16 Blood Pressure 144/78 H Pulse Oximetry 91 Oxygen Delivery 11/23/24 21:03 11/23/24 22:00 11/24/24 00:00 Temperature 99.2 F Pulse Rate 105 H 82 Respiratory Rate 18 Blood Pressure 122/80 Pulse Oximetry 92 Oxygen Delivery Room Air 11/24/24 04:00 11/24/24 06:00 Temperature 98.7 F Pulse Rate 85 75 Respiratory Rate 18 Blood Pressure 114/55 L Pulse Oximetry 95 Oxygen Delivery Intake/Output Intake/Output: Intake & Output 11/21/24 11/22/24 11/23/24 11/24/24 23:59 23:59 23:59 23:59 Intake Total 570 100 Output Total 1000 1200 Balance -430 -1100 Meds/Results Medications: Active Medications Generic Name Dose Route Start Last Admin Trade Name Frieda PRN Reason Stop Dose Admin Acetaminophen 650 mg 11/23/24 18:02 Acetaminophen 325 Mg Tablet PO Q4H PRN Mild Pain (1-3) or Fever Albuterol/Ipratropium 3 ml 11/23/24 20:00 11/24/24 04:30 Ipratropium 0.5 Mg/Albuterol Sulfate 2.5 Mg Ampul.Neb 3 Ml INHALATION Not Given Q6HRT JAC Amitriptyline HCl 10 mg 11/23/24 23:30 11/24/24 00:24 Amitriptyline Hcl 10 Mg Tablet PO 10 mg QHS [facility] Administration Cyclobenzaprine HCl 10 mg 11/23/24 23:27 Cyclobenzaprine Hcl 10 Mg Tablet PO DAILY PRN Muscle Spasm Dextrose 12.5 gm 11/23/24 18:02 Dextrose 50% 25 Gm/50 Ml Syringe IV PUSH PRN PRN Hypoglycemia Protocol Dextrose 12.5 gm 11/23/24 19:49 Dextrose 50% 25 Gm/50 Ml Syringe IV PUSH PRN PRN Hypoglycemia Protocol Duloxetine HCl 60 mg 11/24/24 09:00 Duloxetine Hcl 60 Mg Capsule. PO DAILY [facility] Empagliflozin 10 mg 11/24/24 09:00 Empagliflozin 10 Mg Tablet PO DAILY [facility] Enoxaparin Sodium 40 mg 11/24/24 09:00 Enoxaparin 40 Mg/0.4 Ml Syringe SUB-Q DAILY [facility] Ferrous Sulfate 325 mg 11/24/24 09:00 Ferrous Sulfate 325 Mg Tablet PO 12/24/24 08:59 BID JAC Furosemide 40 mg 11/23/24 21:20 11/24/24 00:25 Furosemide Inj 40 Mg/4 Ml Vial IV PUSH 40 mg Q12HR JAC Administration Glucagon 1 mg 11/23/24 18:02 Glucagon For Inj 1 Mg Vial IM PRN PRN Hypoglycemia Protocol Glucagon 1 mg 11/23/24 19:49 Glucagon For Inj 1 Mg Vial IM PRN PRN Hypoglycemia Protocol Glucose 15 gm 11/23/24 18:02 Glucose Oral Gel 15 Gm Of Glucse In 37.5 Gm Tube PO PRN PRN Hypoglycemia Protocol Glucose 15 gm 11/23/24 19:49 Glucose Oral Gel 15 Gm Of Glucse In 37.5 Gm Tube PO PRN PRN Hypoglycemia Protocol Dextrose 1,000 mls @ 100 mls/hr 11/23/24 18:02 Dextrose 5% 1,000 Ml IVPB PRN PRN Hypoglycemia Protocol Albumin Human 100 mls @ 60 mls/hr 11/24/24 00:00 11/24/24 05:31 Albutein IVPB 11/24/24 19:39 60 mls/hr Q6HR JAC Administration Dextrose 1,000 mls @ 100 mls/hr 11/23/24 19:49 Dextrose 5% 1,000 Ml IVPB PRN PRN Hypoglycemia Protocol Insulin Aspart 3 - 6 units 11/24/24 08:00 Insulin Aspart (*Bkc) 100 Units/Ml SUB-Q TIDWM [facility] Protocol Levothyroxine Sodium 75 mcg 11/24/24 06:30 11/24/24 05:31 Levothyroxine Sodium 75 Mcg Tablet PO 75 mcg DAILY@0630 [facility] Administration Loratadine 10 mg 11/24/24 09:00 Loratadine 10 Mg Tablet PO QAM [facility] Losartan Potassium 50 mg 11/24/24 09:00 Losartan Potassium 50 Mg Tablet PO Q12HR [facility] Morphine Sulfate 15 mg 11/23/24 23:27 Morphine Sulfate (*Crx) 15 Mg Tab Ir PO Q12H PRN Pain (Scale Score 7-10) Multivitamins/Minerals 1 tablet 11/24/24 09:00 Multivits W-Fe,Min Chewable Tablet PO DAILY [facility] Ondansetron HCl 4 mg 11/23/24 18:02 Ondansetron Inj 4 Mg/2 Ml Vial IV PUSH Q4H PRN Nausea Pramipexole Dihydrochloride 0.25 mg 11/24/24 09:00 Pramipexole 0.25 Mg Tablet PO TID [facility] Fluticasone/Salmeterol 2 puff 11/24/24 08:00 Fluticasone/Salmeterol 115-21 Mcg Inhaler 1 Puff INHALATION Q12HRT [facility] Spironolactone 25 mg 11/24/24 09:00 Spironolactone 25 Mg Tablet PO DAILY [facility] Tramadol HCl 50 mg 11/23/24 23:27 11/24/24 01:03 Tramadol Hcl (*Crx) 50 Mg Tablet PO 50 mg Q8H PRN Administration Pain 4-6 Umeclidinium [place] 1 puff 11/24/24 08:00 Umeclidinium [place] 62.5 Mcg Ellipta INHALATION DAILYRT [facility] Radiology Results: ITS Impressions Chest X-Ray 11/23/24 15:52 Impression: Mild CHF Venous Doppler Study 11/23/24 16:37 Impression: Negative for DVT. Labs Labs: Laboratory Results - last 24 hr 11/23/24 11/23/24 11/23/24 13:53 14:49 20:40 WBC 13.2 H RBC 3.54 L Hgb 9.2 L Hct 30.1 L MCV 85.0 MCH 26.0 MCHC 30.6 L RDW 15.8 H Plt Count 445 H MPV 8.7 Immature Gran % (Auto) 1.1 H Neut % (Auto) 70.6 Lymph % (Auto) 12.5 L [place] % (Auto) 12.3 H Eos % (Auto) 3.0 Baso % (Auto) 0.5 Lymph # (Auto) 1.64 [place] # (Auto) 1.6 H Eos # (Auto) 0.4 H Baso # (Auto) 0.1 Abs Immat Gran (auto) 0.15 H Absolute Neuts (auto) 9.3 H Absolute Nucleated RBC 0.000 Nucleated RBC % 0.0 PT 14.0 INR 1.1 APTT 33.7 Sodium 133 L Potassium 2.8 L* Chloride 94 L Carbon Dioxide 34 H Anion Gap 5 BUN 7 D Creatinine 0.66 L Estim Creat Clear Calc 65 Estimated GFR > 60 Glucose 98 POC Capillary Glucose 74 Calcium 8.4 Magnesium 1.9 Total Bilirubin 0.4 AST 34 ALT 17 Alkaline Phosphatase 124 Troponin I < 0.012 NT-Pro-B Natriuret Pep 1110 H Total Protein 6.4 Albumin 3.1 L Urine Color Yellow Urine Appearance Clear Urine pH 6.0 Ur Specific [place] 1.020 Urine Protein Negative Urine Glucose (UA) 3+ H Urine Ketones Negative Ur Blood (Man) Trace Urine Nitrate Negative Urine Bilirubin Negative Urine Urobilinogen 1.0 Leukocyte Esterase Rfl Negative Urine RBC 0-2 Urine WBC 0-5 Ur Squamous Epith Cells None seen Urine Bacteria None seen Urine Casts 0-2 11/23/24 11/23/24 11/24/24 21:38 21:39 04:28 WBC 11.4 H RBC 3.48 L Hgb 9.0 L Hct 29.9 L MCV 85.9 MCH 25.9 L MCHC 30.1 L RDW 15.9 H Plt Count 451 H MPV 8.9 Immature Gran % (Auto) 1.4 H Neut % (Auto) 68.8 Lymph % (Auto) 11.5 L [place] % (Auto) 14.7 H Eos % (Auto) 3.2 Baso % (Auto) 0.4 Lymph # (Auto) 1.31 [place] # (Auto) 1.7 H Eos # (Auto) 0.4 H Baso # (Auto) 0.1 Abs Immat Gran (auto) 0.16 H Absolute Neuts (auto) 7.9 H Absolute Nucleated RBC 0.000 Nucleated RBC % 0.0 PT INR APTT Sodium 133 L 134 L Potassium 3.1 L 3.0 L Chloride 94 L 91 L Carbon Dioxide 32 H 34 H Anion Gap 7 9 BUN 6 L 7 Creatinine 0.65 L 0.66 L Estim Creat Clear Calc 66 67 Estimated GFR > 60 > 60 Glucose 138 H 88 POC Capillary Glucose 141 H Calcium 8.6 8.6 Magnesium Total Bilirubin 0.6 AST 27 ALT 13 Alkaline Phosphatase 114 Troponin I NT-Pro-B Natriuret Pep Total Protein 6.7 Albumin 3.6 Urine Color Urine Appearance Urine pH Ur Specific [place] Urine Protein Urine Glucose (UA) Urine Ketones Ur Blood (Man) Urine Nitrate Urine Bilirubin Urine Urobilinogen Leukocyte Esterase Rfl Urine RBC Urine WBC Ur Squamous Epith Cells Urine Bacteria Urine Casts Quality VTE Prophylaxis VTE prophylaxis: pharmacologic ordered
[2024-11-24] MEDS: UMECLIDINIUM BROMIDE 62.5 MCG ELLIPTA 1 PUFF INHALATION (09:20)
[2024-11-24] MEDS: IPRATROPIUM 0.5 MG/ALBUTEROL SULFATE 2.5 MG AMPUL.NEB 3 ML INHALATION ×3 (09:20→20:31)
[2024-11-24] MEDS: FLUTICASONE/SALMETEROL 115-21 MCG INHALER 1 PUFF 2 PUFF INHALATION ×2 (09:26→20:32)
[2024-11-24] MEDS: DULoxetine HCL 60 MG CAPSULE.DR PO (09:52)
[2024-11-24] MEDS: FERROUS SULFATE 325 MG TABLET PO ×2 (09:52→18:18)
[2024-11-24] MEDS: LOSARTAN POTASSIUM 50 MG TABLET PO ×2 (09:52→21:33)
[2024-11-24] MEDS: LORATADINE 10 MG TABLET PO (09:53)
[2024-11-24] MEDS: EMPAGLIFLOZIN 10 MG TABLET PO (09:53)
[2024-11-24] MEDS: MULTIVITS W-FE,MIN CHEWABLE TABLET 1 TABLET PO (09:53)
[2024-11-24] MEDS: POTASSIUM CHLORIDE 20 MEQ PACKET (FOR LIQUID) 40 MEQ PO (09:54)
[2024-11-24] MEDS: ENOXAPARIN 40 MG/0.4 ML SYRINGE SUB-Q (09:58)
[2024-11-24] MEDS: ACETAMINOPHEN 325 MG TABLET 650 MG PO ×2 (10:18→18:25)
[2024-11-25] VITALS (18 sets, daily range): BP systolic 112–119; BP diastolic 57–68; PULSE 63–104; RESP 16–20; TEMP 36.3–36.5; O2SAT 92–97
[2024-11-25] MEDS: IPRATROPIUM 0.5 MG/ALBUTEROL SULFATE 2.5 MG AMPUL.NEB 3 ML INHALATION ×4 (01:59→20:59)
[2024-11-25] MEDS: CYCLOBENZAPRINE HCL 10 MG TABLET PO ×2 (02:57→17:23)
[2024-11-25 05:54] LABS: Hematocrit 31.2 % (37.0-47.0); Hemoglobin 9.6 g/dL (12.0-15.0); Mean Corpuscular HGB Conc 30.8 g/dl (32-36); Mean Corpuscular Hemoglobin 25.9 pg (26-34); Mean Corpuscular Volume 84.3 fl (80-100); Platelet Count Result 499 k/mm3 (150-375); Red Blood Count 3.70 M/mm3 (4.2-5.4); White Blood Count 13.9 K/mm3 (4.5-10.0)
[2024-11-25] MEDS: LEVOTHYROXINE SODIUM 75 MCG TABLET PO (06:01)
[2024-11-25 06:24] LABS: Anion Gap 12 mmol/L (4-12); Blood Urea Nitrogen 10 mg/dL (7-17); Calcium 9.3 mg/dL (8.4-10.2); Carbon Dioxide 34 mmol/L (22-30); Chloride 88 mmol/L (98-107); Estimated CRCL calculation 60 ml/min; Estimated Glomerular Filt Rate > 60; Glucose 110 mg/dL (65-110); Magnesium 1.9 mg/dL (1.6-2.3); Potassium 2.7 mmol/L (3.4-5.0); Sodium 134 mmol/L (137-145)
[2024-11-25] MEDS: POTASSIUM CHLORIDE 20 MEQ ER TABLET 40 MEQ PO ×2 (06:56→09:20)
[2024-11-25] MEDS: LORATADINE 10 MG TABLET PO (08:08)
[2024-11-25] MEDS: DULoxetine HCL 60 MG CAPSULE.DR PO (08:08)
[2024-11-25] MEDS: FERROUS SULFATE 325 MG TABLET PO ×2 (08:08→17:23)
[2024-11-25] MEDS: MULTIVITS W-FE,MIN CHEWABLE TABLET 1 TABLET PO (08:08)
[2024-11-25] MEDS: EMPAGLIFLOZIN 10 MG TABLET PO (08:08)
[2024-11-25] MEDS: LOSARTAN POTASSIUM 50 MG TABLET PO ×2 (08:08→20:27)
[2024-11-25] MEDS: ENOXAPARIN 40 MG/0.4 ML SYRINGE SUB-Q (08:10)
[2024-11-25] MEDS: FUROSEMIDE INJ 40 MG/4 ML VIAL IV PUSH ×2 (08:10→20:27)
[2024-11-25] MEDS: UMECLIDINIUM BROMIDE 62.5 MCG ELLIPTA 1 PUFF INHALATION (08:28)
--- NOTE | 2024-11-25 10:23 | PM.IMPN ---
Progress Note: A&P Assessment and Plan (1) Acute exacerbation of CHF (congestive heart failure): Qualifiers: Heart failure type: unspecified Qualified Code(s): I50.9 - Heart failure, unspecified Code(s): I50.9 - Heart failure, unspecified Status: Acute Assessment and Plan: - BNP 1110 - CXR: Mild CHF - US BLE: no DVT - most recent echo, OSH (08/2024): Normal LV systolic function, estimated EF 65%, valvular disease noted her. See report for details. - reported a recent increase in her Lasix PO from 20 mg to 40 mg a few weeks ago with no improvement, continue as 40 mg b.i.d. IV with extra 40 mg x1. Continue home spironolactone. - monitor I&Os and daily weights - trend renal function reports that cardiology stopped her spironolactone 11/25 i/o reviewed- 2100 out net 120 no sob, no leg swelling will consider decreasing lasix to her home dose and eval if stable for discharge (2) COPD (chronic obstructive pulmonary disease): Onset Date: Unknown Qualifiers: COPD type: unspecified COPD Qualified Code(s): J44.9 - Chronic obstructive pulmonary disease, unspecified Code(s): J44.9 - Chronic obstructive pulmonary disease, unspecified Status: Chronic Assessment and Plan: - wheezing on exam, scattered. No increased sputum production. - DuoNeb scheduled - continue home inhalers (3) Diabetes: Qualifiers: Diabetes mellitus complication status: without complication Diabetes mellitus longitudinal float operator insulin use: without longitudinal float operator use Diabetes mellitus type: type 2 Qualified Code(s): E11.9 - Type 2 diabetes mellitus without complications Code(s): E11.9 - Type 2 diabetes mellitus without complications Status: Chronic Assessment and Plan: - hypoglycemia protocol - POC blood glucose ACHS - home medication: Jardiance - correct regimen ordered - moderate dose TIDWM, based off BMI - A1C 5.8% on 11/06/24 (4) Iron deficiency anemia: Qualifiers: Iron deficiency anemia type: unspecified iron deficiency Qualified Code(s): D50.9 - Iron deficiency anemia, unspecified Code(s): D50.9 - Iron deficiency anemia, unspecified Status: Acute Assessment and Plan: - Hgb 9.2 - baseline 9-11, more recently 11.4 on 07/23. - transfuse if <7 (5) Rheumatoid arthritis: Qualifiers: Rheumatoid arthritis location: multiple sites Rheumatoid factor presence: with rheumatoid factor Qualified Code(s): M05.79 - Rheumatoid arthritis with rheumatoid factor of multiple sites without organ or systems involvement Code(s): M06.9 - Rheumatoid arthritis, unspecified Status: Acute Assessment and Plan: - continue home medication(s) (6) Hypothyroidism (acquired): Code(s): E03.9 - Hypothyroidism, unspecified Status: Acute Assessment and Plan: - TSH 1.82 on 11/20/2024 - continue Synthroid (7) HTN (hypertension): Qualifiers: Hypertension type: primary hypertension Qualified Code(s): I10 - Essential (primary) hypertension Code(s): I10 - Essential (primary) hypertension Status: Acute Assessment and Plan: - chronic, currently 130/68 - continue home medications: Losartan - monitor (8) Hypokalemia: Code(s): E87.6 - Hypokalemia Status: Acute Assessment and Plan: noted K 2.8- IC and po replaced- will order daily replacement as on IV lasix - monitor closely with daily labs - 2.7 this morning- will order IV replace Plan Diet: heart healthy GI Prophylaxis: n/a DVT Prophylaxis: Lovenox SQ IV fluids: none, diuresing Lines/Tubes: peripheral IV Code Status: full code Time Spent With Patient Time with patient: Greater than 35 minutes Subjective Date/time seen: 11/25/24 10:23 Interval history: 69 y/o F with PMH of CHF, COPD, iron deficiency anemia, fibromyalgia, IBS, GERD, diabetes, rheumatoid arthritis, depression, anxiety, hypothyroidism, and restless leg syndrome presents here with lower extremity edema. The patient presents here from home on 11/23 for further evaluation of bilateral lower extremity edema and pain, recent increased in herdaily Lasix from 20 mg to 40 mg a few weeks ago. She denies any improvement with increased diuresis. However, she reports she has overall not been urinating as much. Patient was additionally seen at [place] on 11/18 for a fall, at that time she was told to increase her Lasix to 80 mg x 4 days, however she did not follow these instructions. Lower extremity edema is now also accompanied by increased shortness of breath and wheezing x1 day. She has been utilizing her home inhalers with minimal improvement, has a history of COPD. She denies associated productive cough, fever, chills, body aches, rhinorrhea, nausea, vomiting, or diarrhea. Initial VS at presentation: 97.6? F, HR 104, RR 20, 140/77, and 95% on RA. ED workup showed: WBC 13.2, hemoglobin 9.2 (11.4 on 07/23/2024), normal coags, potassium 2.8, creatinine 0.66 and GFR >60, BNP 1110, albumin 3.1, UA showed 3+ glucose otherwise unremarkable. CXR showed mild CHF. US of the BLE negative for DVT. Pt is seen and examined. Doppler done- No DVT. Lasix 40 mg IV bid. She is resting in bed, eyes closed. Bruising noted to rt clavicle, pt reports she had a fall recently and has clavicle fx. no sob, no leg swelling noted. 11/25 pt is seen and examined. Review of Systems Review of Systems: All systems reviewed & are unremarkable except as noted in HPI and below Exam Const: General: comfortable and no acute distress Other: , female, nontoxic appearance HENMT: Face/Nose/Sinus: Normal nares present Mouth: Yes moist mucous membranes Eyes: General: appearance normal, both eyes and all related structures Sclera: sclerae normal Pupils: Equal, round and reactive pupils present EOM: EOMs intact bilaterally Resp: Effort & Inspection: normal respiratory effort Other: Scattered wheezing, faint. No crackles or rub appreciated. No increased work of breathing. Cardio: Rate: regular rate Rhythm: regular rhythm Other: S1-S2 present without murmur, rub, ectopy GI: Other: Abdomen soft, nondistended, nontender. Normoactive bowel sounds in all quadrants. Skin: General skin exam: normal color and no rashes or lesions noted Wounds: no wounds Neuro: Cranial nerves: Yes Equal, round and reactive pupils present Speech: normal speech Motor exam (neuro): 5/5 motor strength present throughout Sensory Exam: normal sensation Other: A&O x4 Extrem: Other: 2+ pitting edema to bilateral lower extremities extending from knees to ankles, symmetric. No associated erythema. Psych: Mental Status: mental status grossly normal Affect: normal affect Other: Good insight and judgment, pleasant Objective Data Vital Signs Vital Signs: Vital Signs - 24 hr 11/24/24 12:00 11/24/24 13:14 11/24/24 13:22 Temperature Pulse Rate 91 102 H 92 Respiratory Rate 16 16 Blood Pressure Pulse Oximetry Oxygen Delivery 11/24/24 14:00 11/24/24 16:00 11/24/24 20:00 Temperature 98.1 F Pulse Rate 96 103 H Respiratory Rate 16 Blood Pressure 120/63 Pulse Oximetry 95 Oxygen Delivery Room Air 11/24/24 20:00 11/24/24 20:09 11/24/24 20:31 Temperature 98.1 F Pulse Rate 96 98 94 Respiratory Rate 17 16 Blood Pressure 126/52 L Pulse Oximetry 95 Oxygen Delivery 11/24/24 20:40 11/25/24 00:00 11/25/24 02:00 Temperature Pulse Rate 94 95 94 Respiratory Rate 16 16 Blood Pressure Pulse Oximetry Oxygen Delivery 11/25/24 02:06 11/25/24 04:00 11/25/24 05:03 Temperature 97.4 F L Pulse Rate 94 103 H 98 Respiratory Rate 16 17 Blood Pressure 119/68 Pulse Oximetry 96 Oxygen Delivery 11/25/24 08:00 11/25/24 08:29 11/25/24 08:33 Temperature Pulse Rate 99 92 92 Respiratory Rate 17 17 Blood Pressure Pulse Oximetry 92 Oxygen Delivery Room Air 11/25/24 08:35 Temperature Pulse Rate 92 Respiratory Rate 17 Blood Pressure Pulse Oximetry Oxygen Delivery Intake/Output Intake/Output: Intake & Output 11/22/24 11/23/24 11/24/24 11/25/24 23:59 23:59 23:59 23:59 Intake Total 570 1680 540 Output Total 1000 2200 1100 Balance -430 -520 -560 Meds/Results Medications: Active Medications Generic Name Dose Route Start Last Admin Trade Name Freq PRN Reason Stop Dose Admin Acetaminophen 650 mg 11/23/24 18:02 11/24/24 18:25 Acetaminophen 325 Mg Tablet PO 650 mg Q4H PRN Administration Mild Pain (1-3) or Fever Albuterol/Ipratropium 3 ml 11/23/24 20:00 11/25/24 08:28 Ipratropium 0.5 Mg/Albuterol Sulfate 2.5 Mg Ampul.Neb 3 Ml INHALATION 3 ml Q6HRT JAC Administration Amitriptyline HCl 10 mg 11/23/24 23:30 11/24/24 21:33 Amitriptyline Hcl 10 Mg Tablet PO 10 mg QHS JAC Administration Cyclobenzaprine HCl 10 mg 11/23/24 23:27 11/25/24 02:57 Cyclobenzaprine Hcl 10 Mg Tablet PO 10 mg DAILY PRN Administration Muscle Spasm Dextrose 12.5 gm 11/23/24 19:49 Dextrose 50% 25 Gm/50 Ml Syringe IV PUSH PRN PRN Hypoglycemia Protocol Duloxetine HCl 60 mg 11/24/24 09:00 11/25/24 08:08 Duloxetine Hcl 60 Mg Capsule. PO 60 mg DAILY JAC Administration Empagliflozin 10 mg 11/24/24 09:00 11/25/24 08:08 Empagliflozin 10 Mg Tablet PO 10 mg DAILY JAC Administration Enoxaparin Sodium 40 mg 11/24/24 09:00 11/25/24 08:10 Enoxaparin 40 Mg/0.4 Ml Syringe SUB-Q 40 mg DAILY JAC Administration Ferrous Sulfate 325 mg 11/24/24 09:00 11/25/24 08:08 Ferrous Sulfate 325 Mg Tablet PO 12/24/24 08:59 325 mg BID JAC Administration Furosemide 40 mg 11/23/24 21:20 11/25/24 08:10 Furosemide Inj 40 Mg/4 Ml Vial IV PUSH 40 mg Q12HR JAC Administration Glucagon 1 mg 11/23/24 19:49 Glucagon For Inj 1 Mg Vial IM PRN PRN Hypoglycemia Protocol Glucose 15 gm 11/23/24 19:49 Glucose Oral Gel 15 Gm Of Glucse In 37.5 Gm Tube PO PRN PRN Hypoglycemia Protocol Dextrose 1,000 mls @ 100 mls/hr 11/23/24 19:49 Dextrose 5% 1,000 Ml IVPB PRN PRN Hypoglycemia Protocol Potassium Chloride 40 meq/ 520 mls @ 130 mls/hr 11/25/24 10:10 Sodium Chloride IVPB 11/25/24 14:09 ONCE ONE Insulin Aspart 3 - 6 units 11/24/24 08:00 11/25/24 08:10 Insulin Aspart (*Bkc) 100 Units/Ml SUB-Q Not Given TIDWM JAC Protocol Levothyroxine Sodium 75 mcg 11/24/24 06:30 11/25/24 06:01 Levothyroxine Sodium 75 Mcg Tablet PO 75 mcg DAILY@0630 JAC Administration Loratadine 10 mg 11/24/24 09:00 11/25/24 08:08 Loratadine 10 Mg Tablet PO 10 mg QAM JAC Administration Losartan Potassium 50 mg 11/24/24 09:00 11/25/24 08:08 Losartan Potassium 50 Mg Tablet PO 50 mg Q12HR JAC Administration Morphine Sulfate 15 mg 11/23/24 23:27 Morphine Sulfate (*Crx) 15 Mg Tab Ir PO Q12H PRN Pain (Scale Score 7-10) Multivitamins/Minerals 1 tablet 11/24/24 09:00 11/25/24 08:08 Multivits W-Fe,Min Chewable Tablet PO 1 tablet DAILY JAC Administration Ondansetron HCl 4 mg 11/23/24 18:02 Ondansetron Inj 4 Mg/2 Ml Vial IV PUSH Q4H PRN Nausea Potassium Chloride 40 meq 11/25/24 09:00 11/25/24 09:20 Potassium Chloride 20 Meq Er Tablet PO 11/27/24 09:00 40 meq DAILY JAC Administration Pramipexole Dihydrochloride 0.25 mg 11/24/24 14:03 Pramipexole 0.25 Mg Tablet PO TID PRN Restless legs Fluticasone/Salmeterol 2 puff 11/24/24 08:00 11/24/24 20:32 Fluticasone/Salmeterol 115-21 Mcg Inhaler 1 Puff INHALATION 2 puff Q12HRT JAC Administration Tramadol HCl 50 mg 11/23/24 23:27 11/24/24 01:03 Tramadol Hcl (*Crx) 50 Mg Tablet PO 50 mg Q8H PRN Administration Pain 4-6 Umeclidinium [place] 1 puff 11/24/24 08:00 11/25/24 08:28 Umeclidinium [place] 62.5 Mcg Ellipta INHALATION 1 puff DAILYRT JAC Administration Radiology Results: ITS Impressions Chest X-Ray 11/23/24 15:52 Impression: Mild CHF Venous Doppler Study 11/23/24 16:37 Impression: Negative for DVT. Labs Labs: Laboratory Results - last 24 hr 11/24/24 11/24/2411/24/25 12:14 16:58 20:04 WBC RBC Hgb Hct MCV MCH MCHC RDW Plt Count MPV Sodium Potassium Chloride Carbon Dioxide Anion Gap BUN Creatinine Estim Creat Clear Calc Estimated GFR Glucose POC Capillary Glucose 116 H 194 H 123 H Calcium Magnesium 11/25/24 11/25/24 04:26 07:58 WBC 13.9 H RBC 3.70 L Hgb 9.6 L Hct 31.2 L MCV 84.3 MCH 25.9 L MCHC 30.8 L RDW 15.8 H Plt Count 499 H MPV 8.8 Sodium 134 L Potassium 2.7 L* Chloride 88 L Carbon Dioxide 34 H Anion Gap 12 BUN 10 Creatinine 0.74 Estim Creat Clear Calc 60 Estimated GFR > 60 Glucose 110 POC Capillary Glucose 101 Calcium 9.3 Magnesium 1.9 Quality VTE Prophylaxis VTE prophylaxis: pharmacologic ordered
[2024-11-25] MEDS: POTASSIUM CHLORIDE INJ 40 MEQ in SODIUM CHLORIDE 0.9% IV 500 ML 130 MEQ IVPB (11:22)
[2024-11-25 12:28] LABS: Potassium 3.9 mmol/L (3.4-5.0)
[2024-11-25] MEDS: FLUTICASONE/SALMETEROL 115-21 MCG INHALER 1 PUFF 2 PUFF INHALATION ×2 (13:35→21:00)
[2024-11-25] MEDS: ACETAMINOPHEN 325 MG TABLET 650 MG PO ×2 (17:23→22:27)
[2024-11-25 19:15] LABS: Potassium 4.5 mmol/L (3.4-5.0)
[2024-11-25] MEDS: AMITRIPTYLINE HCL 10 MG TABLET PO (20:27)
[2024-11-25] MEDS: PRAMIPEXOLE 0.25 MG TABLET PO (20:39)
[2024-11-25] MEDS: traMADol HCL (*CRX) 50 MG TABLET PO (22:28)
[2024-11-26] VITALS (18 sets, daily range): BP systolic 113–133; BP diastolic 64–68; PULSE 83–115; RESP 12–20; TEMP 36.3–36.7; O2SAT 91–98
[2024-11-26] MEDS: IPRATROPIUM 0.5 MG/ALBUTEROL SULFATE 2.5 MG AMPUL.NEB 3 ML INHALATION ×4 (02:00→19:42)
[2024-11-26 04:57] LABS: Hematocrit 31.9 % (37.0-47.0); Hemoglobin 9.5 g/dL (12.0-15.0); Mean Corpuscular HGB Conc 29.8 g/dl (32-36); Mean Corpuscular Hemoglobin 25.5 pg (26-34); Mean Corpuscular Volume 85.8 fl (80-100); Platelet Count Result 472 k/mm3 (150-375); Red Blood Count 3.72 M/mm3 (4.2-5.4); White Blood Count 14.4 K/mm3 (4.5-10.0)
[2024-11-26 05:18] LABS: Anion Gap 9 mmol/L (4-12); Blood Urea Nitrogen 12 mg/dL (7-17); Calcium 9.8 mg/dL (8.4-10.2); Carbon Dioxide 29 mmol/L (22-30); Chloride 94 mmol/L (98-107); Estimated CRCL calculation 64 ml/min; Estimated Glomerular Filt Rate > 60; Glucose 101 mg/dL (65-110); Potassium 4.3 mmol/L (3.4-5.0); Sodium 132 mmol/L (137-145)
[2024-11-26] MEDS: LEVOTHYROXINE SODIUM 75 MCG TABLET PO (05:30)
[2024-11-26] MEDS: UMECLIDINIUM BROMIDE 62.5 MCG ELLIPTA 1 PUFF INHALATION (07:24)
[2024-11-26] MEDS: FLUTICASONE/SALMETEROL 115-21 MCG INHALER 1 PUFF 2 PUFF INHALATION ×2 (07:24→19:55)
[2024-11-26] MEDS: LOSARTAN POTASSIUM 50 MG TABLET PO ×2 (08:49→20:30)
[2024-11-26] MEDS: DULoxetine HCL 60 MG CAPSULE.DR PO (08:49)
[2024-11-26] MEDS: MULTIVITS W-FE,MIN CHEWABLE TABLET 1 TABLET PO (08:49)
[2024-11-26] MEDS: CYCLOBENZAPRINE HCL 10 MG TABLET PO ×2 (08:49→20:30)
[2024-11-26] MEDS: EMPAGLIFLOZIN 10 MG TABLET PO (08:50)
[2024-11-26] MEDS: POTASSIUM CHLORIDE 20 MEQ ER TABLET 40 MEQ PO (08:50)
[2024-11-26] MEDS: MAGNESIUM OXIDE 400 MG TABLET PO (08:50)
[2024-11-26] MEDS: LORATADINE 10 MG TABLET PO (08:51)
[2024-11-26] MEDS: FUROSEMIDE INJ 40 MG/4 ML VIAL IV PUSH (08:51)
[2024-11-26] MEDS: LIDOCAINE 5% PATCH 1 PATCH TRANSDERM (08:52)
[2024-11-26] MEDS: ENOXAPARIN 40 MG/0.4 ML SYRINGE SUB-Q (08:52)
--- NOTE | 2024-11-26 14:45 | PM.IMPN ---
Progress Note: A&P Assessment and Plan (1) Acute exacerbation of CHF (congestive heart failure): Qualifiers: Heart failure type: unspecified Qualified Code(s): I50.9 - Heart failure, unspecified Code(s): I50.9 - Heart failure, unspecified Status: Acute Assessment and Plan: - BNP 1110 - CXR: Mild CHF - US BLE: no DVT - most recent echo, OSH (08/2024): Normal LV systolic function, estimated EF 65%, valvular disease noted her. See report for details. - reported a recent increase in her Lasix PO from 20 mg to 40 mg a few weeks ago with no improvement, continue as 40 mg b.i.d. IV with extra 40 mg x1. Continue home spironolactone. - monitor I&Os and daily weights - trend renal function reports that cardiology stopped her spironolactone 11/25 i/o reviewed- 2100 out net 120 no sob, no leg swelling will consider decreasing lasix to her home dose and eval if stable for discharge decrease lasix to 40 mg bid for now moniotr i/o and K chelsy (2) COPD (chronic obstructive pulmonary disease): Onset Date: Unknown Qualifiers: COPD type: unspecified COPD Qualified Code(s): J44.9 - Chronic obstructive pulmonary disease, unspecified Code(s): J44.9 - Chronic obstructive pulmonary disease, unspecified Status: Chronic Assessment and Plan: - wheezing on exam, scattered. No increased sputum production. 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 use: without termite exterminator helper use Diabetes mellitus complication status: without complication Qualified Code(s): E11.9 - Type 2 diabetes mellitus without complications Code(s): E11.9 - Type 2 diabetes mellitus without complications Status: Chronic Assessment and Plan: - hypoglycemia protocol - POC blood glucose ACHS - home medication: Jardiance - correct regimen ordered - moderate dose TIDWM, based off BMI - A1C 5.8% on 11/06/24 (4) Iron deficiency anemia: Qualifiers: Iron deficiency anemia type: unspecified iron deficiency Qualified Code(s): D50.9 - Iron deficiency anemia, unspecified Code(s): D50.9 - Iron deficiency anemia, unspecified Status: Acute Assessment and Plan: - Hgb 9.2 - baseline 9-11, more recently 11.4 on 07/23. - transfuse if <7 (5) Rheumatoid arthritis: Qualifiers: Rheumatoid arthritis location: multiple sites Rheumatoid factor presence: with rheumatoid factor Qualified Code(s): M05.79 - Rheumatoid arthritis with rheumatoid factor of multiple sites without organ or systems involvement Code(s): M06.9 - Rheumatoid arthritis, unspecified Status: Acute Assessment and Plan: - continue home medication(s) (6) Hypothyroidism (acquired): Code(s): E03.9 - Hypothyroidism, unspecified Status: Acute Assessment and Plan: - TSH 1.82 on 11/20/2024 - continue Synthroid (7) HTN (hypertension): Qualifiers: Hypertension type: primary hypertension Qualified Code(s): I10 - Essential (primary) hypertension Code(s): I10 - Essential (primary) hypertension Status: Acute Assessment and Plan: - chronic, currently 130/68 - continue home medications: Losartan - monitor (8) Hypokalemia: Code(s): E87.6 - Hypokalemia Status: Acute Assessment and Plan: noted K 2.8- IC and po replaced- will order daily replacement as on IV lasix - monitor closely with daily labs - 2.7 this morning- will order IV replace Plan Will order chest xray and if suspicious for pneumonia-will start IV antibitocis repeat labs in am if stable and feeling better-should be able to discharge in maik next day or two PT/OT ordered Diet: heart healthy GI Prophylaxis: n/a DVT Prophylaxis: Lovenox SQ IV fluids: none, diuresing Lines/Tubes: peripheral IV Code Status: full code Time Spent With Patient Time with patient: Greater than 35 minutes Subjective Date/time seen: 11/26/24 14:45 Interval history: 69 y/o F with PMH of CHF, COPD, iron deficiency anemia, fibromyalgia, IBS, GERD, diabetes, rheumatoid arthritis, depression, anxiety, hypothyroidism, and restless leg syndrome presents here with lower extremity edema. The patient presents here from home on 11/23 for further evaluation of bilateral lower extremity edema and pain, recent increased in herdaily Lasix from 20 mg to 40 mg a few weeks ago. She denies any improvement with increased diuresis. However, she reports she has overall not been urinating as much. Patient was additionally seen at [facility] on 11/18 for a fall, at that time she was told to increase her Lasix to 80 mg x 4 days, however she did not follow these instructions. Lower extremity edema is now also accompanied by increased shortness of breath and wheezing x1 day. She has been utilizing her home inhalers with minimal improvement, has a history of COPD. She denies associated productive cough, fever, chills, body aches, rhinorrhea, nausea, vomiting, or diarrhea. Initial VS at presentation: 97.6? F, HR 104, RR 20, 140/77, and 95% on RA. ED workup showed: WBC 13.2, hemoglobin 9.2 (11.4 on 07/23/2024), normal coags, potassium 2.8, creatinine 0.66 and GFR >60, BNP 1110, albumin 3.1, UA showed 3+ glucose otherwise unremarkable. CXR showed mild CHF. US of the BLE negative for DVT. Pt is seen and examined. Doppler done- No DVT. Lasix 40 mg IV bid. She is resting in bed, eyes closed. Bruising noted to rt clavicle, pt reports she had a fall recently and has clavicle fx. no sob, no leg swelling noted. 11/25 pt is seen and examined. Rt ribs are hurting-will order chest xray. NO leg swelling. NO sob. no n/v/d. Review of Systems Review of Systems: All systems reviewed & are unremarkable except as noted in HPI and below Exam Narrative: report rt sided rib pain this am Const: General: comfortable and no acute distress Other: , female, nontoxic appearance HENMT: Face/Nose/Sinus: Normal nares present Mouth: Yes moist mucous membranes Eyes: General: appearance normal, both eyes and all related structures Sclera: sclerae normal Pupils: Equal, round and reactive pupils present EOM: EOMs intact bilaterally Resp: Effort & Inspection: normal respiratory effort Other: Scattered wheezing, faint. No crackles or rub appreciated. No increased work of breathing. Cardio: Rate: regular rate Rhythm: regular rhythm Other: S1-S2 present without murmur, rub, ectopy GI: Other: Abdomen soft, nondistended, nontender. Normoactive bowel sounds in all quadrants. Skin: General skin exam: normal color and no rashes or lesions noted Wounds: no wounds Neuro: Cranial nerves: Yes Equal, round and reactive pupils present Speech: normal speech Motor exam (neuro): 5/5 motor strength present throughout Sensory Exam: normal sensation Other: A&O x4 Extrem: Other: 2+ pitting edema to bilateral lower extremities extending from knees to ankles, symmetric. No associated erythema. Psych: Mental Status: mental status grossly normal Affect: normal affect Other: Good insight and judgment, pleasant Objective Data Vital Signs Vital Signs: Vital Signs - 24 hr 11/25/24 16:00 11/25/24 20:00 11/25/24 20:00 Temperature Pulse Rate 104 H 98 Respiratory Rate Blood Pressure Pulse Oximetry Oxygen Delivery Room Air 11/25/24 20:28 11/25/24 21:01 11/25/24 21:22 Temperature 97.7 F Pulse Rate 94 90 94 Respiratory Rate 20 20 20 Blood Pressure 118/57 L Pulse Oximetry 94 Oxygen Delivery 11/26/24 00:00 11/26/24 01:27 11/26/24 01:33 Temperature Pulse Rate 97 90 90 Respiratory Rate 18 18 Blood Pressure Pulse Oximetry Oxygen Delivery 11/26/24 04:00 11/26/24 04:59 11/26/24 07:24 Temperature 97.3 F L Pulse Rate 83 95 98 Respiratory Rate 20 18 Blood Pressure 133/66 Pulse Oximetry 91 Oxygen Delivery 11/26/24 07:36 11/26/24 08:00 11/26/24 08:50 Temperature Pulse Rate 97 115 H Respiratory Rate 18 Blood Pressure Pulse Oximetry Oxygen Delivery Room Air 11/26/24 13:20 11/26/24 13:30 Temperature Pulse Rate 96 98 Respiratory Rate 18 18 Blood Pressure Pulse Oximetry Oxygen Delivery Intake/Output Intake/Output: Intake & Output 11/23/24 11/24/24 11/25/24 11/26/24 23:59 23:59 23:59 23:59 Intake Total 570 1780 780 510 Output Total 1000 2200 1100 Balance -430 -420 -320 510 Meds/Results Medications: Active Medications Generic Name Dose Route Start Last Admin Trade Name Freq PRN Reason Stop Dose Admin Acetaminophen 650 mg 11/23/24 18:02 11/25/24 22:27 Acetaminophen 325 Mg Tablet PO 650 mg Q4H PRN Administration Mild Pain (1-3) or Fever Albuterol/Ipratropium 3 ml 11/23/24 20:00 11/26/24 13:25 Ipratropium 0.5 Mg/Albuterol Sulfate 2.5 Mg Ampul.Neb 3 Ml INHALATION 3 ml Q6HRT JAC Administration Amitriptyline HCl 10 mg 11/23/24 23:30 11/25/24 20:27 Amitriptyline Hcl 10 Mg Tablet PO 10 mg QHS JAC Administration Cyclobenzaprine HCl 10 mg 11/25/24 17:14 11/26/24 08:49 Cyclobenzaprine Hcl 10 Mg Tablet PO 10 mg TID PRN Administration Muscle Spasm Dextrose 12.5 gm 11/23/24 19:49 Dextrose 50% 25 Gm/50 Ml Syringe IV PUSH PRN PRN Hypoglycemia Protocol Duloxetine HCl 60 mg 11/24/24 09:00 11/26/24 08:49 Duloxetine Hcl 60 Mg Capsule.Dr PO 60 mg DAILY JAC Administration Empagliflozin 10 mg 11/24/24 09:00 11/26/24 08:50 Empagliflozin 10 Mg Tablet PO 10 mg DAILY JAC Administration Enoxaparin Sodium 40 mg 11/24/24 09:00 11/26/24 08:52 Enoxaparin 40 Mg/0.4 Ml Syringe SUB-Q 40 mg DAILY JAC Administration Ferrous Sulfate 325 mg 11/24/24 09:00 11/26/24 08:51 Ferrous Sulfate 325 Mg Tablet PO 12/24/24 08:59 Not Given BID JAC Furosemide 40 mg 11/26/24 21:00 Furosemide 40 Mg Tablet PO Q12HR JAC Glucagon 1 mg 11/23/24 19:49 Glucagon For Inj 1 Mg Vial IM PRN PRN Hypoglycemia Protocol Glucose 15 gm 11/23/24 19:49 Glucose Oral Gel 15 Gm Of Glucse In 37.5 Gm Tube PO PRN PRN Hypoglycemia Protocol Dextrose 1,000 mls @ 100 mls/hr 11/23/24 19:49 Dextrose 5% 1,000 Ml IVPB PRN PRN Hypoglycemia Protocol Ceftriaxone Sodium 1 gm/ 50 mls @ 100 mls/hr 11/26/24 14:00 Sodium Chloride IVPB Q24H [facility] Insulin Aspart 3 - 6 units 11/24/24 08:00 11/26/24 11:44 Insulin Aspart (*Bkc) 100 Units/Ml SUB-Q Not Given TIDWM [facility] Protocol Levothyroxine Sodium 75 mcg 11/24/24 06:30 11/26/24 05:30 Levothyroxine Sodium 75 Mcg Tablet PO 75 mcg DAILY@0630 JAC Administration Lidocaine 1 patch 11/26/24 09:00 11/26/24 08:52 Lidocaine 5% Patch TRANSDERM 1 patch DAILY JAC Administration Loratadine 10 mg 11/24/24 09:00 11/26/24 08:51 Loratadine 10 Mg Tablet PO 10 mg QAM JAC Administration Losartan Potassium 50 mg 11/24/24 09:00 11/26/24 08:49 Losartan Potassium 50 Mg Tablet PO 50 mg Q12HR JAC Administration Magnesium Oxide 400 mg 11/26/24 09:00 11/26/24 08:50 Magnesium Oxide 400 Mg Tablet PO 400 mg DAILY JAC Administration Morphine Sulfate 15 mg 11/23/24 23:27 Morphine Sulfate (*Crx) 15 Mg Tab Ir PO Q12H PRN Pain (Scale Score 7-10) Multivitamins/Minerals 1 tablet 11/24/24 09:00 11/26/24 08:49 Multivits W-Fe,Min Chewable Tablet PO 1 tablet DAILY JAC Administration Ondansetron HCl 4 mg 11/23/24 18:02 Ondansetron Inj 4 Mg/2 Ml Vial IV PUSH Q4H PRN Nausea Potassium Chloride 40 meq 11/25/24 09:00 11/26/24 08:50 Potassium Chloride 20 Meq Er Tablet PO 11/27/24 09:00 40 meq DAILY JAC Administration Pramipexole Dihydrochloride 0.25 mg 11/24/24 14:03 11/25/24 20:39 Pramipexole 0.25 Mg Tablet PO 0.25 mg TID PRN Administration Restless legs Fluticasone/Salmeterol 2 puff 11/24/24 08:00 11/26/24 07:24 Fluticasone/Salmeterol 115-21 Mcg Inhaler 1 Puff INHALATION 2 puff Q12HRT JAC Administration Tramadol HCl 50 mg 11/23/24 23:27 11/25/24 22:28 Tramadol Hcl (*Crx) 50 Mg Tablet PO 50 mg Q8H PRN Administration Pain 4-6 Umeclidinium [place] 1 puff 11/24/24 08:00 11/26/24 07:24 Umeclidinium [place] 62.5 Mcg Ellipta INHALATION 1 puff DAILYRT JAC Administration Radiology Results: ITS Impressions Venous Doppler Study 11/23/24 16:37 Impression: Negative for DVT. Chest X-Ray 11/26/24 08:59 IMPRESSION: 1. No significant change from 3 days prior. Labs Labs: Laboratory Results - last 24 hr 11/25/24 11/25/24 11/25/24 16:53 19:03 20:32 WBC RBC Hgb Hct MCV MCH MCHC RDW Plt Count MPV Sodium Potassium 4.5 Chloride Carbon Dioxide Anion Gap BUN Creatinine Estim Creat Clear Calc Estimated GFR Glucose POC Capillary Glucose 83 135 H Calcium 11/26/24 11/26/24 11/26/24 04:29 07:45 11:30 WBC 14.4 H RBC 3.72 L Hgb 9.5 L Hct 31.9 L MCV 85.8 MCH 25.5 L MCHC 29.8 L RDW 16.2 H Plt Count 472 H MPV 8.7 Sodium 132 L Potassium 4.3 Chloride 94 L Carbon Dioxide 29 Anion Gap 9 BUN 12 Creatinine 0.68 L Estim Creat Clear Calc 64 Estimated GFR > 60 Glucose 101 POC Capillary Glucose 93 101 Calcium 9.8 Quality VTE Prophylaxis VTE prophylaxis: pharmacologic ordered
[2024-11-26] MEDS: cefTRIAXone 1 GM in SODIUM CHLORIDE 0.9% IV 50 ML 100 ML IVPB (15:10)
[2024-11-26] MEDS: FERROUS SULFATE 325 MG TABLET PO (18:03)
[2024-11-26] MEDS: PRAMIPEXOLE 0.25 MG TABLET PO (18:03)
[2024-11-26] MEDS: ACETAMINOPHEN 325 MG TABLET 650 MG PO (19:43)
[2024-11-26] MEDS: traMADol HCL (*CRX) 50 MG TABLET PO (19:43)
[2024-11-26] MEDS: FUROSEMIDE 40 MG TABLET PO (20:30)
[2024-11-26] MEDS: AMITRIPTYLINE HCL 10 MG TABLET PO (20:30)
[2024-11-27] VITALS (18 sets, daily range): BP systolic 102–136; BP diastolic 52–65; PULSE 71–119; RESP 16–20; TEMP 36.4–37; O2SAT 90–98
[2024-11-27] MEDS: IPRATROPIUM 0.5 MG/ALBUTEROL SULFATE 2.5 MG AMPUL.NEB 3 ML INHALATION ×4 (01:59→19:47)
[2024-11-27 04:56] LABS: Hematocrit 33.9 % (37.0-47.0); Hemoglobin 10.1 g/dL (12.0-15.0); Mean Corpuscular HGB Conc 29.8 g/dl (32-36); Mean Corpuscular Hemoglobin 25.4 pg (26-34); Mean Corpuscular Volume 85.4 fl (80-100); Platelet Count Result 531 k/mm3 (150-375); Red Blood Count 3.97 M/mm3 (4.2-5.4); White Blood Count 16.9 K/mm3 (4.5-10.0)
[2024-11-27 05:04] LABS: Anion Gap 11 mmol/L (4-12); Blood Urea Nitrogen 12 mg/dL (7-17); Calcium 9.9 mg/dL (8.4-10.2); Carbon Dioxide 29 mmol/L (22-30); Chloride 93 mmol/L (98-107); Estimated CRCL calculation 55 ml/min; Estimated Glomerular Filt Rate > 60; Glucose 104 mg/dL (65-110); Potassium 4.5 mmol/L (3.4-5.0); Sodium 133 mmol/L (137-145)
[2024-11-27] MEDS: LEVOTHYROXINE SODIUM 75 MCG TABLET PO (05:32)
--- NOTE | 2024-11-27 07:23 | P.PNIM_ITS ---
Progress Note: A&P Assessment and Plan (1) Acute exacerbation of CHF (congestive heart failure): Qualifiers: Heart failure type: unspecified Qualified Code(s): I50.9 - Heart failure, unspecified Code(s): I50.9 - Heart failure, unspecified Status: Acute Assessment and Plan: Symptoms: lower extremity edema and shortness of breath Reported a recent increase in her Lasix PO from 20 mg to 40 mg a few weeks ago with no improvement Current home medications: lasix 40 mg daily PO and spironolactone 25 mg daily - Transitioned back to home oral lasix 40 mg BID Per chart review patient stated her senior policy associate stopped her home spironolactone - BNP: 1110 - Chest XR on admission showed mild chf - US BLE: negative for DVT - most recent echo, OSH (08/2024): Normal LV systolic function, estimated EF 65%, valvular disease noted her. See report for details. - Monitor vital signs, I&Os, BUN/creatinine, daily weights, neuro status and patient is a fall risk - Monitor serum electrolytes, Keep serum Potassium>4 and serum Magnesium>2 and CBC - IS (2) Pneumonia: Code(s): J18.9 - Pneumonia, unspecified organism Status: Acute Assessment and Plan: CXR: Mild CHF Repeat CXR: No significant change Patient remains afebrile but does have a worsening leukocytosis. She notes that she always has an elevated WBC which appears true on chart review. She is endorsing right sided rib pain that is reproducible with palpation. Recent fall on 11/18 to the right side. No noted bruising to the area. - started on CAP tx: azithromycin ceftriaxone - Viral PCR: Flu/COVID/RSV ordered - CRP and procal ordered - Consider ordering legionella, mycoplasma and pneumococcal - no supplemental O2 requirement - Monitor vital signs, I&Os, neuro status and patient is a fall risk - Follow WBC, serum electrolytes, temperature curves and cultures (3) Hypokalemia: Code(s): E87.6 - Hypokalemia Status: Acute Assessment and Plan: noted K 2.8- IV and po replaced- will order daily replacement as on IV lasix - monitor closely with daily labs K 4.5 on am labs. Continue to monitor. (4) COPD (chronic obstructive pulmonary disease): Onset Date: Unknown Qualifiers: COPD type: unspecified COPD Qualified Code(s): J44.9 - Chronic obstructive pulmonary disease, unspecified Code(s): J44.9 - Chronic obstructive pulmonary disease, unspecified Status: Chronic Assessment and Plan: - wheezing initially heard on prior exam, scattered. No increased sputum production. - DuoNeb scheduled - continue home inhalers No wheezing on exam. 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: without mcc use Diabetes mellitus type: type 2 Qualified Code(s): E11.9 - Type 2 diabetes mellitus without complications Code(s): E11.9 - Type 2 diabetes mellitus without complications Status: Chronic Assessment and Plan: - hypoglycemia protocol - POC blood glucose ACHS - home medication: Jardiance - correct regimen ordered - moderate dose TIDWM, based off BMI - A1C 5.8% on 11/06/24 (6) Iron deficiency anemia: Qualifiers: Iron deficiency anemia type: unspecified iron deficiency Qualified Code(s): D50.9 - Iron deficiency anemia, unspecified Code(s): D50.9 - Iron deficiency anemia, unspecified Status: Acute Assessment and Plan: - H/H remains at baseline 9-11, more recently 11.4 on 07/23. - transfuse if <7 (7) Rheumatoid arthritis: Qualifiers: Rheumatoid arthritis location: multiple sites Rheumatoid factor presence: with rheumatoid factor Qualified Code(s): M05.79 - Rheumatoid arthritis with rheumatoid factor of multiple sites without organ or systems involvement Code(s): M06.9 - Rheumatoid arthritis, unspecified Status: Acute Assessment and Plan: - continue home medication(s) (8) Hypothyroidism (acquired): Code(s): E03.9 - Hypothyroidism, unspecified Status: Acute Assessment and Plan: - TSH 1.82 on 11/20/2024 - continue Synthroid (9) HTN (hypertension): Qualifiers: Hypertension type: primary hypertension Qualified Code(s): I10 - Essential (primary) hypertension Code(s): I10 - Essential (primary) hypertension Status: Acute Assessment and Plan: - chronic, continue home medications: Losartan 50 mg BID - blood pressures remain stable, continue to monitor Time Spent With Patient Time with patient: 25 - 35 minutes Subjective Date/time seen: 11/27/24 07:23 Interval history: 69 year old female with PMH of CHF, COPD, iron deficiency anemia, fibromyalgia, IBS, GERD, diabetes, rheumatoid arthritis, depression, anxiety, hypothyroidism, and restless leg syndrome presents to the hospital with lower extremity edema. Patient is pleasant sitting up comfortably in bed. Continues to endorse right- sided rib pain that is reproducible with palpation. She states that she had a on November to the right side after losing her balance. She says she was worked up at an outside hospital and workup was negative. She is also endorsing slight shortness of breath and intermittent cough that is nonproductive. She has no other complaints denying chest pain, palpitations, nausea/vomiting, abdominal pain. Encouraged patient to get out bed to chair for meals and to work with PT/OT given recent falls Review of Systems Review of Systems: All systems reviewed & are unremarkable except as noted in HPI and below Exam Narrative: AF HR 96 RR 16 Spo2 96 BP 136/60 General: female in no acute respiratory distress who is nontoxic appearing, sitting up in bed. HEENT: Normocephalic. Atraumatic. Extraocular movement intact. Sclera clear and anicteric. No facial asymmetry. Chest: Lungs are slightly diminished to the bases on auscultation bilaterally. Pain with palpation to right ribs. Bruising to right clavicle. Taking short breaths. Speaking full sentences. CV: Heart was regular rate and rhythm. Abd: Abdomen was soft. Nontender. Nondistended. Positive bowel sounds. Ext: No clubbing, cyanosis, or edema. DP pulses bilaterally. Neuro: Patient is alert. Speech is clear. Objective Data Vital Signs Vital Signs: Vital Signs - 24 hr 11/26/24 07:24 11/26/24 07:36 11/26/24 08:00 Temperature Pulse Rate 98 97 115 H Respiratory Rate 18 18 Blood Pressure Pulse Oximetry Oxygen Delivery 11/26/24 08:50 11/26/24 12:00 11/26/24 13:20 Temperature Pulse Rate 107 H 96 Respiratory Rate 18 Blood Pressure Pulse Oximetry Oxygen Delivery Room Air 11/26/24 13:30 11/26/24 14:00 11/26/24 16:00 Temperature 97.6 F Pulse Rate 98 114 H 102 H Respiratory Rate 18 12 Blood Pressure 113/68 Pulse Oximetry 98 Oxygen Delivery 11/26/24 19:44 11/26/24 19:55 11/26/24 19:56 Temperature Pulse Rate 92 92 Respiratory Rate 18 18 Blood Pressure Pulse Oximetry 93 Oxygen Delivery Room Air 11/26/24 20:00 11/26/24 20:00 11/26/24 20:16 Temperature 98.1 F Pulse Rate 103 H 106 H Respiratory Rate 16 Blood Pressure 127/64 Pulse Oximetry 96 Oxygen Delivery Room Air 11/27/24 00:00 11/27/24 02:00 11/27/24 02:07 Temperature Pulse Rate 97 92 92 Respiratory Rate 18 18 Blood Pressure Pulse Oximetry Oxygen Delivery 11/27/24 04:00 11/27/24 04:46 Temperature 98.6 F Pulse Rate 93 96 Respiratory Rate 16 Blood Pressure 136/60 Pulse Oximetry 96 Oxygen Delivery Intake/Output Intake/Output: Intake & Output 11/24/24 11/25/24 11/26/24 11/27/24 23:59 23:59 23:59 23:59 Intake Total 5168 438 7562 300 Output Total 2200 1100 Balance -420 -320 1380 300 Meds/Results Medications: Active Medications Generic Name Dose Route Start Last Admin Trade Name Freq PRN Reason Stop Dose Admin Acetaminophen 650 mg 11/23/24 18:02 11/26/24 19:43 Acetaminophen 325 Mg Tablet PO 650 mg Q4H PRN Administration Mild Pain (1-3) or Fever Albuterol/Ipratropium 3 ml 11/23/24 20:00 11/27/24 01:59 Ipratropium 0.5 Mg/Albuterol Sulfate 2.5 Mg Ampul.Neb 3 Ml INHALATION 3 ml Q6HRT JAC Administration Amitriptyline HCl 10 mg 11/23/24 23:30 11/26/24 20:30 Amitriptyline Hcl 10 Mg Tablet PO 10 mg QHS JAC Administration Cyclobenzaprine HCl 10 mg 11/25/24 17:14 11/26/24 20:30 Cyclobenzaprine Hcl 10 Mg Tablet PO 10 mg TID PRN Administration Muscle Spasm Dextrose 12.5 gm 11/23/24 19:49 Dextrose 50% 25 Gm/50 Ml Syringe IV PUSH PRN PRN Hypoglycemia Protocol Duloxetine HCl 60 mg 11/24/24 09:00 11/26/24 08:49 Duloxetine Hcl 60 Mg Capsule.Dr PO 60 mg DAILY JAC Administration Empagliflozin 10 mg 11/24/24 09:00 11/26/24 08:50 Empagliflozin 10 Mg Tablet PO 10 mg DAILY JAC Administration Enoxaparin Sodium 40 mg 11/24/24 09:00 11/26/24 08:52 Enoxaparin 40 Mg/0.4 Ml Syringe SUB-Q 40 mg DAILY JAC Administration Ferrous Sulfate 325 mg 11/24/24 09:00 11/26/24 18:03 Ferrous Sulfate 325 Mg Tablet PO 12/24/24 08:59 325 mg BID JAC Administration Furosemide 40 mg 11/26/24 21:00 11/26/24 20:30 Furosemide 40 Mg Tablet PO 40 mg Q12HR JAC Administration Glucagon 1 mg 11/23/24 19:49 Glucagon For Inj 1 Mg Vial IM PRN PRN Hypoglycemia Protocol Glucose 15 gm 11/23/24 19:49 Glucose Oral Gel 15 Gm Of Glucse In 37.5 Gm Tube PO PRN PRN Hypoglycemia Protocol Dextrose 1,000 mls @ 100 mls/hr 11/23/24 19:49 Dextrose 5% 1,000 Ml IVPB PRN PRN Hypoglycemia Protocol Ceftriaxone Sodium 1 gm/ 50 mls @ 100 mls/hr 11/26/24 14:00 11/26/24 15:40 Sodium Chloride IVPB Infused Q24H JAC Infusion Insulin Aspart 3 - 6 units 11/24/24 08:00 11/26/24 17:16 Insulin Aspart (*Bkc) 100 Units/Ml SUB-Q Not Given [facility] Protocol Levothyroxine Sodium 75 mcg 11/24/24 06:30 11/27/24 05:32 Levothyroxine Sodium 75 Mcg Tablet PO 75 mcg DAILY@0630 JAC Administration Lidocaine 1 patch 11/26/24 09:00 11/26/24 08:52 Lidocaine 5% Patch TRANSDERM 1 patch DAILY JAC Administration Loratadine 10 mg 11/24/24 09:00 11/26/24 08:51 Loratadine 10 Mg Tablet PO 10 mg QAM JAC Administration Losartan Potassium 50 mg 11/24/24 09:00 11/26/24 20:30 Losartan Potassium 50 Mg Tablet PO 50 mg Q12HR JAC Administration Magnesium Oxide 400 mg 11/26/24 09:00 11/26/24 08:50 Magnesium Oxide 400 Mg Tablet PO 400 mg DAILY JAC Administration Morphine Sulfate 15 mg 11/23/24 23:27 Morphine Sulfate (*Crx) 15 Mg Tab Ir PO Q12H PRN Pain (Scale Score 7-10) Multivitamins/Minerals 1 tablet 11/24/24 09:00 11/26/24 08:49 Multivits W-Fe,Min Chewable Tablet PO 1 tablet DAILY JAC Administration Ondansetron HCl 4 mg 11/23/24 18:02 Ondansetron Inj 4 Mg/2 Ml Vial IV PUSH Q4H PRN Nausea Potassium Chloride 40 meq 11/25/24 09:00 11/26/24 08:50 Potassium Chloride 20 Meq Er Tablet PO 11/27/24 09:00 40 meq DAILY JAC Administration Pramipexole Dihydrochloride 0.25 mg 11/24/24 14:03 11/26/24 18:03 Pramipexole 0.25 Mg Tablet PO 0.25 mg TID PRN Administration Restless legs Fluticasone/Salmeterol 2 puff 11/24/24 08:00 11/26/24 19:55 Fluticasone/Salmeterol 115-21 Mcg Inhaler 1 Puff INHALATION 2 puff Q12HRT JAC Administration Tramadol HCl 50 mg 11/23/24 23:27 11/26/24 19:43 Tramadol Hcl (*Crx) 50 Mg Tablet PO 50 mg Q8H PRN Administration Pain 4-6 Umeclidinium [place] 1 puff 11/24/24 08:00 11/26/24 07:24 Umeclidinium [place] 62.5 Mcg Ellipta INHALATION 1 puff DAILYRT JAC Administration Radiology Results: ITS Impressions Venous Doppler Study 11/23/24 16:37 Impression: Negative for DVT. Chest X-Ray 11/26/24 08:59 IMPRESSION: 1. No significant change from 3 days prior. Labs Labs: Laboratory Results - last 24 hr 11/26/24 11/26/24 11/26/24 07:45 11:30 16:40 WBC RBC Hgb Hct MCV MCH MCHC RDW Plt Count MPV Sodium Potassium Chloride Carbon Dioxide Anion Gap BUN Creatinine Estim Creat Clear Calc Estimated GFR Glucose POC Capillary Glucose 93 101 95 Calcium 11/26/24 11/27/24 20:13 04:17 WBC 16.9 H RBC 3.97 L Hgb 10.1 L Hct 33.9 L MCV 85.4 MCH 25.4 L MCHC 29.8 L RDW 16.2 H Plt Count 531 H MPV 8.7 Sodium 133 L Potassium 4.5 Chloride 93 L Carbon Dioxide 29 Anion Gap 11 BUN 12 Creatinine 0.79 Estim Creat Clear Calc 55 Estimated GFR > 60 Glucose 104 POC Capillary Glucose 111 H Calcium 9.9 Quality VTE Prophylaxis VTE prophylaxis: pharmacologic ordered
[2024-11-27] MEDS: MULTIVITS W-FE,MIN CHEWABLE TABLET 1 TABLET PO (08:41)
[2024-11-27] MEDS: LOSARTAN POTASSIUM 50 MG TABLET PO ×2 (08:41→20:31)
[2024-11-27] MEDS: MAGNESIUM OXIDE 400 MG TABLET PO (08:41)
[2024-11-27] MEDS: FERROUS SULFATE 325 MG TABLET PO ×2 (08:41→17:18)
[2024-11-27] MEDS: LORATADINE 10 MG TABLET PO (08:41)
[2024-11-27] MEDS: FUROSEMIDE 40 MG TABLET PO ×2 (08:41→20:31)
[2024-11-27] MEDS: AZITHROMYCIN 500 MG TABLET PO (08:42)
[2024-11-27] MEDS: DULoxetine HCL 60 MG CAPSULE.DR PO (08:42)
[2024-11-27] MEDS: EMPAGLIFLOZIN 10 MG TABLET PO (08:42)
[2024-11-27] MEDS: POTASSIUM CHLORIDE 20 MEQ ER TABLET 40 MEQ PO (08:42)
[2024-11-27] MEDS: LIDOCAINE 5% PATCH 1 PATCH TRANSDERM (08:46)
[2024-11-27] MEDS: MORPHINE SULFATE (*CRX) 15 MG TAB IR PO ×2 (08:46→20:36)
[2024-11-27] MEDS: ENOXAPARIN 40 MG/0.4 ML SYRINGE SUB-Q (08:46)
[2024-11-27] MEDS: UMECLIDINIUM BROMIDE 62.5 MCG ELLIPTA 1 PUFF INHALATION (09:24)
[2024-11-27] MEDS: FLUTICASONE/SALMETEROL 115-21 MCG INHALER 1 PUFF 2 PUFF INHALATION ×2 (09:24→19:47)
[2024-11-27 13:12] LABS: Influenza A QL RT-PCR Negative (Negative); Influenza B QL RT-PCR Negative (Negative); RSV RNA, RT-PCR Negative (Negative); SARS-CoV-2 RNA PCR Negative (Negative)
[2024-11-27 13:16] LABS: Procalcitonin 0.2 ng/mL
[2024-11-27 13:19] LABS: CRP 25.5 mg/dL (<1.0)
[2024-11-27] MEDS: cefTRIAXone 1 GM in SODIUM CHLORIDE 0.9% IV 50 ML 100 ML IVPB (14:09)
[2024-11-27] MEDS: traMADol HCL (*CRX) 50 MG TABLET PO (17:19)
[2024-11-27] MEDS: AMITRIPTYLINE HCL 10 MG TABLET PO (20:31)
[2024-11-27] MEDS: CYCLOBENZAPRINE HCL 10 MG TABLET PO (20:32)
[2024-11-28] VITALS (16 sets, daily range): BP systolic 111–120; BP diastolic 51–57; PULSE 92–104; RESP 16–20; TEMP 36.7–37; O2SAT 91–99
[2024-11-28] MEDS: traMADol HCL (*CRX) 50 MG TABLET PO ×2 (01:26→20:39)
[2024-11-28] MEDS: IPRATROPIUM 0.5 MG/ALBUTEROL SULFATE 2.5 MG AMPUL.NEB 3 ML INHALATION ×4 (02:34→20:05)
[2024-11-28] MEDS: diphenhydrAMINE HCl CAP 25 MG CAPSULE PO ×4 (02:49→22:47)
[2024-11-28] MEDS: LEVOTHYROXINE SODIUM 75 MCG TABLET PO (05:09)
[2024-11-28 05:13] LABS: Hematocrit 32.7 % (37.0-47.0); Hemoglobin 9.7 g/dL (12.0-15.0); Mean Corpuscular HGB Conc 29.7 g/dl (32-36); Mean Corpuscular Hemoglobin 25.2 pg (26-34); Mean Corpuscular Volume 84.9 fl (80-100); Platelet Count Result 550 k/mm3 (150-375); Red Blood Count 3.85 M/mm3 (4.2-5.4); White Blood Count 19.9 K/mm3 (4.5-10.0)
[2024-11-28 05:39] LABS: Alanine Aminotransferase 14 U/L (6-35); Albumin Level 3.9 g/dL (3.5-5.1); Alkaline Phosphatase 121 U/L (38-126); Anion Gap 12 mmol/L (4-12); Aspartate Amino Transferase 28 U/L (14-36); Bilirubin,Total 0.7 mg/dL (0.2-1.3); Blood Urea Nitrogen 20 mg/dL (7-17); Calcium 9.6 mg/dL (8.4-10.2); Carbon Dioxide 25 mmol/L (22-30); Chloride 92 mmol/L (98-107); Estimated CRCL calculation 33 ml/min; Estimated Glomerular Filt Rate 39; Glucose 113 mg/dL (65-110); Potassium 4.6 mmol/L (3.4-5.0); Sodium 129 mmol/L (137-145); Total Protein 7.4 g/dL (6.3-8.2)
--- NOTE | 2024-11-28 06:56 | PM.IMPN ---
Progress Note: A&P Assessment and Plan (1) Leukocytosis: Code(s): D72.829 - Elevated white blood cell count, unspecified Status: Acute Assessment and Plan: Patient continues to have a rising leukocytosis on am labs, Lactic acid WNL, remains afebrile Blood cultures obtained on 11/28, pending Possibly related to dehydration as patient has been diuresed, hyponatremic and notes diarrhea, given 500 NS @ 75 ml/hr Possibly related to pneumonia, remains on antibiotics as per plan below Given diarrhea will obtain a cdiff and stool culture however patient denies any nausea/vomiting and abdominal pain Possibly related to PE as patient was short of breath and tachycardic, CTA ruled out PE (2) Acute exacerbation of CHF (congestive heart failure): Qualifiers: Heart failure type: unspecified Qualified Code(s): I50.9 - Heart failure, unspecified Code(s): I50.9 - Heart failure, unspecified Status: Acute Assessment and Plan: Symptoms: lower extremity edema and shortness of breath Reported a recent increase in her Lasix PO from 20 mg to 40 mg a few weeks ago with no improvement Current home medications: lasix 40 mg daily PO and spironolactone 25 mg daily - Transitioned back to home oral lasix 40 mg BID Per chart review patient stated her 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 See report for details. - Monitor vital signs, I&Os, BUN/creatinine, daily weights, neuro status and patient is a fall risk - Monitor serum electrolytes, Keep serum Potassium>4 and serum Magnesium>2 and CBC - IS (3) Pneumonia: Code(s): J18.9 - Pneumonia, unspecified organism Status: Acute Assessment and Plan: CXR: Mild CHF Repeat CXR: No significant change Patient remains afebrile but does have a worsening leukocytosis. She notes that she always has an elevated WBC which appears true on chart review. She is endorsing right sided rib pain that is reproducible with palpation. Recent fall on 11/18 to the right side to which she states she has a rib fracture, no note of rib fracture on imaging. No noted bruising to the area. - started on CAP tx: azithromycin ceftriaxone - Viral PCR: Flu/COVID/RSV negative - CRP elevated and procal WNL - Consider ordering legionella, mycoplasma and pneumococcal - no supplemental O2 requirement - Monitor vital signs, I&Os, neuro status and patient is a fall risk - Follow WBC, serum electrolytes, temperature curves and cultures (4) DEANA (acute kidney injury): Code(s): N17.9 - Acute kidney failure, unspecified Status: Acute Assessment and Plan: BUN/Cr 20/1.34, baseline WNL Possibly related to over diuresis and patient appears dehydrated on exam with dry mucous membranes Given 500 ml NS @ 75 ml/hr x1 (5) Hyponatremia: Code(s): E87.1 - Hypo-osmolality and hyponatremia Status: Acute Assessment and Plan: Na downtrending, possibly related to over diuresis Given a 500 L IV NS @ 75 ml/hr x1 Continue to monitor (6) Hypokalemia: Code(s): E87.6 - Hypokalemia Status: Acute Assessment and Plan: noted K 2.8- IV and po replaced- will order daily replacement as on IV lasix - monitor closely with daily labs K 4.6 on am labs. Continue to monitor. (7) COPD (chronic obstructive pulmonary disease): Onset Date: Unknown Qualifiers: COPD type: unspecified COPD Qualified Code(s): J44.9 - Chronic obstructive pulmonary disease, unspecified Code(s): J44.9 - Chronic obstructive pulmonary disease, unspecified Status: Chronic Assessment and Plan: - wheezing initially heard on prior exam, scattered. No increased sputum production. - DuoNeb scheduled - continue home inhalers No wheezing on exam. 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 mellitus tours captain insulin use: without care home use Diabetes mellitus type: type 2 Qualified Code(s): E11.9 - Type 2 diabetes mellitus without complications Code(s): E11.9 - Type 2 diabetes mellitus without complications Status: Chronic Assessment and Plan: - hypoglycemia protocol - POC blood glucose ACHS - home medication: Jardiance - correct regimen ordered - moderate dose TIDWM, based off BMI - A1C 5.8% on 11/06/24 (9) Iron deficiency anemia: Qualifiers: Iron deficiency anemia type: unspecified iron deficiency Qualified Code(s): D50.9 - Iron deficiency anemia, unspecified Code(s): D50.9 - Iron deficiency anemia, unspecified Status: Acute Assessment and Plan: - H/H remains at baseline 9-11, more recently 11.4 on 07/23. - transfuse if <7 (10) Rheumatoid arthritis: Qualifiers: Rheumatoid arthritis location: multiple sites Rheumatoid factor presence: with rheumatoid factor Qualified Code(s): M05.79 - Rheumatoid arthritis with rheumatoid factor of multiple sites without organ or systems involvement Code(s): M06.9 - Rheumatoid arthritis, unspecified Status: Acute Assessment and Plan: - continue home medication(s) (11) Hypothyroidism (acquired): Code(s): E03.9 - Hypothyroidism, unspecified Status: Acute Assessment and Plan: - TSH 1.82 on 11/20/2024 - continue Synthroid (12) HTN (hypertension): Qualifiers: Hypertension type: primary hypertension Qualified Code(s): I10 - Essential (primary) hypertension Code(s): I10 - Essential (primary) hypertension Status: Acute Assessment and Plan: - chronic, continue home medications: Losartan 50 mg BID - blood pressures remain stable, continue to monitor Time Spent With Patient Time with patient: 25 - 35 minutes Subjective Date/time seen: 11/28/24 06:56 Interval history: 69 year old female with PMH of CHF, COPD, iron deficiency anemia, fibromyalgia, IBS, GERD, diabetes, rheumatoid arthritis, depression, anxiety, hypothyroidism, and restless leg syndrome presents to the hospital with lower extremity edema. Patient is pleasant sitting up comfortably in her chair. She continues to endorse shortness of breath but states that this is much improved and is only occurring with ambulation. She denies associated cough. She continues to endorse rib pain and states that from her prior fall she had a rib fracture however this has not been noted on prior imaging. Patient does note that she has ongoing diarrhea and has been having decreased oral intake since admission. She does appear dry on assessment. She denies any associated nausea/vomiting or abdominal pain. Patient also denies any skin wounds or sores. Patient has no other complaints denying chest pain and palpitations as well. Review of Systems Review of Systems: All systems reviewed & are unremarkable except as noted in HPI and below Exam Narrative: AF HR 99 RR 20 SpO2 99 BP 120/57 General: female in no acute respiratory distress who is nontoxic appearing, sitting up in bed. HEENT: Normocephalic. Atraumatic. Extraocular movement intact. Sclera clear and anicteric. No facial asymmetry. Dry mucous membranes. Chest: Lungs are coarse to the bases on auscultation bilaterally. Pain with palpation to right ribs. Bruising to right clavicle. Taking short breaths. Speaking full sentences. CV: Heart was regular rate and rhythm. Abd: Abdomen was soft. Nontender. Nondistended. Positive bowel sounds. Ext: No clubbing, cyanosis, or edema. DP pulses bilaterally. Neuro: Patient is alert. Speech is clear. Objective Data Vital Signs Vital Signs: Vital Signs - 24 hr 11/27/24 08:00 11/27/24 08:40 11/27/24 09:20 Temperature Pulse Rate 107 H 100 Respiratory Rate 18 Blood Pressure Pulse Oximetry Oxygen Delivery Room Air Fraction of Inspired Oxygen 11/27/24 09:26 11/27/24 09:30 11/27/24 10:36 Temperature Pulse Rate 103 H Respiratory Rate 18 Blood Pressure Pulse Oximetry 92 Oxygen Delivery Room Air Room Air Fraction of Inspired Oxygen 11/27/24 12:00 11/27/24 13:19 11/27/24 13:27 Temperature Pulse Rate 119 H 110 H 112 H Respiratory Rate 19 19 Blood Pressure Pulse Oximetry Oxygen Delivery Fraction of Inspired Oxygen 11/27/24 14:00 11/27/24 16:00 11/27/24 19:48 Temperature 97.6 F Pulse Rate 115 H 114 H 90 Respiratory Rate 20 16 Blood Pressure 102/52 L Pulse Oximetry 90 Oxygen Delivery Fraction of Inspired Oxygen 11/27/24 20:00 11/27/24 20:00 11/27/24 20:01 Temperature Pulse Rate 94 103 H 90 Respiratory Rate 18 16 Blood Pressure Pulse Oximetry 98 Oxygen Delivery Room Air Fraction of Inspired Oxygen 21 11/27/24 20:22 11/27/24 22:00 11/28/24 00:00 Temperature 98.2 F Pulse Rate 71 95 Respiratory Rate 18 Blood Pressure 126/65 Pulse Oximetry 92 Oxygen Delivery Room Air Fraction of Inspired Oxygen 11/28/24 02:35 11/28/24 04:00 11/28/24 06:00 Temperature 98.0 F Pulse Rate 103 H 104 H 99 Respiratory Rate 20 18 Blood Pressure 120/57 L Pulse Oximetry 99 Oxygen Delivery Fraction of Inspired Oxygen Intake/Output Intake/Output: Intake & Output 11/25/24 11/26/24 11/27/24 11/28/24 23:59 23:59 23:59 23:59 Intake Total 780 1380 1280 Output Total 1100 Balance -320 1380 1280 Meds/Results Medications: Active Medications Generic Name Dose Route Start Last Admin Trade Name Freq PRN Reason Stop Dose Admin Acetaminophen 650 mg 11/23/24 18:02 11/26/24 19:43 Acetaminophen 325 Mg Tablet PO 650 mg Q4H PRN Administration Mild Pain (1-3) or Fever Albuterol/Ipratropium 3 ml 11/23/24 20:00 11/28/24 02:34 Ipratropium 0.5 Mg/Albuterol Sulfate 2.5 Mg Ampul.Neb 3 Ml INHALATION 3 ml Q6HRT JAC Administration Amitriptyline HCl 10 mg 11/23/24 23:30 11/27/24 20:31 Amitriptyline Hcl 10 Mg Tablet PO 10 mg QHS JAC Administration Azithromycin 500 mg 11/27/24 09:00 11/27/24 08:42 Azithromycin 500 Mg Tablet PO 500 mg DAILY JAC Administration Cyclobenzaprine HCl 10 mg 11/25/24 17:14 11/27/24 20:32 Cyclobenzaprine Hcl 10 Mg Tablet PO 10 mg TID PRN Administration Muscle Spasm Dextrose 12.5 gm 11/23/24 19:49 Dextrose 50% 25 Gm/50 Ml Syringe IV PUSH PRN PRN Hypoglycemia Protocol Duloxetine HCl 60 mg 11/24/24 09:00 11/27/24 08:42 Duloxetine Hcl 60 Mg Capsule.Dr PO 60 mg DAILY JAC Administration Empagliflozin 10 mg 11/24/24 09:00 11/27/24 08:42 Empagliflozin 10 Mg Tablet PO 10 mg DAILY JAC Administration Enoxaparin Sodium 40 mg 11/24/24 09:00 11/27/24 08:46 Enoxaparin 40 Mg/0.4 Ml Syringe SUB-Q 40 mg DAILY JAC Administration Ferrous Sulfate 325 mg 11/24/24 09:00 11/27/24 17:18 Ferrous Sulfate 325 Mg Tablet PO 12/24/24 08:59 325 mg BID JAC Administration Furosemide 40 mg 11/26/24 21:00 11/27/24 20:31 Furosemide 40 Mg Tablet PO 40 mg Q12HR JAC Administration Glucagon 1 mg 11/23/24 19:49 Glucagon For Inj 1 Mg Vial IM PRN PRN Hypoglycemia Protocol Glucose 15 gm 11/23/24 19:49 Glucose Oral Gel 15 Gm Of Glucse In 37.5 Gm Tube PO PRN PRN Hypoglycemia Protocol Dextrose 1,000 mls @ 100 mls/hr 11/23/24 19:49 Dextrose 5% 1,000 Ml IVPB PRN PRN Hypoglycemia Protocol Ceftriaxone Sodium 1 gm/ 50 mls @ 100 mls/hr 11/26/24 14:00 11/27/24 14:39 Sodium Chloride IVPB Infused Q24H JAC Infusion Insulin Aspart 3 - 6 units 11/24/24 08:00 11/27/24 17:18 Insulin Aspart (*Bkc) 100 Units/Ml SUB-Q Not Given TIDWM JAC Protocol Levothyroxine Sodium 75 mcg 11/24/24 06:30 11/28/24 05:09 Levothyroxine Sodium 75 Mcg Tablet PO 75 mcg DAILY@0630 JAC Administration Lidocaine 1 patch 11/26/24 09:00 11/27/24 08:46 Lidocaine 5% Patch TRANSDERM 1 patch DAILY JAC Administration Loratadine 10 mg 11/24/24 09:00 11/27/24 08:41 Loratadine 10 Mg Tablet PO 10 mg QAM JAC Administration Losartan Potassium 50 mg 11/24/24 09:00 11/27/24 20:31 Losartan Potassium 50 Mg Tablet PO 50 mg Q12HR JAC Administration Magnesium Oxide 400 mg 11/26/24 09:00 11/27/24 08:41 Magnesium Oxide 400 Mg Tablet PO 400 mg DAILY JAC Administration Morphine Sulfate 15 mg 11/23/24 23:27 11/27/24 20:36 Morphine Sulfate (*Crx) 15 Mg Tab Ir PO 15 mg Q12H PRN Administration Pain (Scale Score 7-10) Multivitamins/Minerals 1 tablet 11/24/24 09:00 11/27/24 08:41 Multivits W-Fe,Min Chewable Tablet PO 1 tablet DAILY JAC Administration Ondansetron HCl 4 mg 11/23/24 18:02 Ondansetron Inj 4 Mg/2 Ml Vial IV PUSH Q4H PRN Nausea Pramipexole Dihydrochloride 0.25 mg 11/24/24 14:03 11/26/24 18:03 Pramipexole 0.25 Mg Tablet PO 0.25 mg TID PRN Administration Restless legs Fluticasone/Salmeterol 2 puff 11/24/24 08:00 11/27/24 19:47 Fluticasone/Salmeterol 115-21 Mcg Inhaler 1 Puff INHALATION 2 puff Q12HRT JAC Administration Tramadol HCl 50 mg 11/23/24 23:27 11/28/24 01:26 Tramadol Hcl (*Crx) 50 Mg Tablet PO 50 mg Q8H PRN Administration Pain 4-6 Umeclidinium [place] 1 puff 11/24/24 08:00 11/27/24 09:24 Umeclidinium [place] 62.5 Mcg Ellipta INHALATION 1 puff DAILYRT JAC Administration Radiology Results: ITS Impressions Venous Doppler Study 11/23/24 16:37 Impression: Negative for DVT. Chest X-Ray 11/26/24 08:59 IMPRESSION: 1. No significant change from 3 days prior. Labs Labs: Laboratory Results - last 24 hr 11/27/24 11/27/24 11/27/24 04:14 07:50 11:49 WBC RBC Hgb Hct MCV MCH MCHC RDW Plt Count MPV Sodium Potassium Chloride Carbon Dioxide Anion Gap BUN Creatinine Estim Creat Clear Calc Estimated GFR Glucose POC Capillary Glucose 93 102 Calcium Total Bilirubin AST ALT Alkaline Phosphatase C-Reactive Protein 25.5 H Total Protein Albumin Procalcitonin 0.2 Influenza A (RT-PCR) Influenza B (RT-PCR) RSV (RT-PCR) SARS-CoV-2 RNA (RT-PCR) 11/27/24 11/27/24 11/27/24 12:23 16:51 19:33 WBC RBC Hgb Hct MCV MCH MCHC RDW Plt Count MPV Sodium Potassium Chloride Carbon Dioxide Anion Gap BUN Creatinine Estim Creat Clear Calc Estimated GFR Glucose POC Capillary Glucose 105 94 Calcium Total Bilirubin AST ALT Alkaline Phosphatase C-Reactive Protein Total Protein Albumin Procalcitonin Influenza A (RT-PCR) Negative Influenza B (RT-PCR) Negative RSV (RT-PCR) Negative SARS-CoV-2 RNA (RT-PCR) Negative 11/28/24 04:00 WBC 19.9 H RBC 3.85 L Hgb 9.7 L Hct 32.7 L MCV 84.9 MCH 25.2 L MCHC 29.7 L RDW 16.4 H Plt Count 550 H MPV 8.9 Sodium 129 L Potassium 4.6 Chloride 92 L Carbon Dioxide 25 Anion Gap 12 BUN 20 H Creatinine 1.34 H Estim Creat Clear Calc 33 Estimated GFR 39 L Glucose 113 H POC Capillary Glucose Calcium 9.6 Total Bilirubin 0.7 AST 28 ALT 14 Alkaline Phosphatase 121 C-Reactive Protein Total Protein 7.4 Albumin 3.9 Procalcitonin Influenza A (RT-PCR) Influenza B (RT-PCR) RSV (RT-PCR) SARS-CoV-2 RNA (RT-PCR) Quality VTE Prophylaxis VTE prophylaxis: pharmacologic ordered
[2024-11-28] MEDS: FLUTICASONE/SALMETEROL 115-21 MCG INHALER 1 PUFF 2 PUFF INHALATION ×2 (07:51→20:05)
[2024-11-28] MEDS: UMECLIDINIUM BROMIDE 62.5 MCG ELLIPTA 1 PUFF INHALATION (07:51)
[2024-11-28] MEDS: MORPHINE SULFATE (*CRX) 15 MG TAB IR PO (08:07)
[2024-11-28] MEDS: LOSARTAN POTASSIUM 50 MG TABLET PO (08:08)
[2024-11-28] MEDS: DULoxetine HCL 60 MG CAPSULE.DR PO (08:08)
[2024-11-28] MEDS: LORATADINE 10 MG TABLET PO (08:08)
[2024-11-28] MEDS: MAGNESIUM OXIDE 400 MG TABLET PO (08:08)
[2024-11-28] MEDS: FUROSEMIDE 40 MG TABLET PO (08:08)
[2024-11-28] MEDS: MULTIVITS W-FE,MIN CHEWABLE TABLET 1 TABLET PO (08:08)
[2024-11-28] MEDS: AZITHROMYCIN 500 MG TABLET PO (08:08)
[2024-11-28] MEDS: FERROUS SULFATE 325 MG TABLET PO ×2 (08:08→17:13)
[2024-11-28] MEDS: EMPAGLIFLOZIN 10 MG TABLET PO (08:08)
[2024-11-28] MEDS: ENOXAPARIN 40 MG/0.4 ML SYRINGE SUB-Q (08:23)
[2024-11-28] MEDS: LIDOCAINE 5% PATCH 1 PATCH TRANSDERM (08:24)
[2024-11-28] MEDS: CYCLOBENZAPRINE HCL 10 MG TABLET PO ×2 (11:10→22:23)
[2024-11-28] MEDS: SODIUM CHLORIDE 0.9% IV 500 ML 75 ML IV CONT (13:07)
[2024-11-28] MEDS: cefTRIAXone 1 GM in SODIUM CHLORIDE 0.9% IV 50 ML 100 ML IVPB (13:07)
[2024-11-28 19:23] LABS: Toxigenic C. Diff NEGATIVE (NEGATIVE)
[2024-11-28] MEDS: AMITRIPTYLINE HCL 10 MG TABLET PO (20:39)
[2024-11-28] MEDS: FUROSEMIDE 20 MG TABLET PO (20:40)
[2024-11-28] MEDS: ACETAMINOPHEN 325 MG TABLET 650 MG PO (20:44)
[2024-11-29] VITALS (16 sets, daily range): BP systolic 123–130; BP diastolic 60–68; PULSE 83–107; RESP 16–20; TEMP 36.3–36.6; O2SAT 95–100
[2024-11-29] MEDS: ACETAMINOPHEN 325 MG TABLET 650 MG PO ×3 (05:20→20:15)
[2024-11-29] MEDS: LEVOTHYROXINE SODIUM 75 MCG TABLET PO (05:20)
[2024-11-29 05:49] LABS: Hematocrit 28.7 % (37.0-47.0); Hemoglobin 8.6 g/dL (12.0-15.0); Mean Corpuscular HGB Conc 30.0 g/dl (32-36); Mean Corpuscular Hemoglobin 25.4 pg (26-34); Mean Corpuscular Volume 84.7 fl (80-100); Platelet Count Result 461 k/mm3 (150-375); Red Blood Count 3.39 M/mm3 (4.2-5.4); White Blood Count 13.9 K/mm3 (4.5-10.0)
[2024-11-29 06:14] LABS: Alanine Aminotransferase 14 U/L (6-35); Albumin Level 3.6 g/dL (3.5-5.1); Alkaline Phosphatase 122 U/L (38-126); Anion Gap 9 mmol/L (4-12); Aspartate Amino Transferase 29 U/L (14-36); Bilirubin,Total 0.3 mg/dL (0.2-1.3); Blood Urea Nitrogen 21 mg/dL (7-17); Calcium 9.8 mg/dL (8.4-10.2); Carbon Dioxide 29 mmol/L (22-30); Chloride 94 mmol/L (98-107); Estimated CRCL calculation 46 ml/min; Estimated Glomerular Filt Rate 56; Glucose 118 mg/dL (65-110); Potassium 3.8 mmol/L (3.4-5.0); Sodium 132 mmol/L (137-145); Total Protein 6.9 g/dL (6.3-8.2)
--- NOTE | 2024-11-29 06:56 | PM.IMPN ---
Progress Note: A&P Assessment and Plan (1) Leukocytosis: Code(s): D72.829 - Elevated white blood cell count, unspecified Status: Acute Assessment and Plan: Patient continues to have a rising leukocytosis on am labs, Lactic acid WNL, remains afebrile Blood cultures obtained on 11/28, pending Possibly related to dehydration as patient has been diuresed, hyponatremic and notes diarrhea, given 500 NS @ 75 ml/hr Possibly related to pneumonia, remains on antibiotics as per plan below Given diarrhea will obtain a cdiff and stool culture however patient denies any nausea/vomiting and abdominal pain C diff negative. Patient now stating she has chronic intermittent diarrhea for which she takes Imodium. Started on Imodium. Possibly related to PE as patient was rib pain, short of breath and tachycardic, CTA ruled out PE Leukocytosis more likely related to dehydration as after patient received normal saline the white blood cell count significantly improved 19.9 to 13.9. Patient remains afebrile. Shortness of breath improving. Remains on antibiotics for potential pneumonia. Blood cultures pending. Continue to monitor. Encourage adequate hydration. 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 See report for details. - Monitor vital signs, I&Os, BUN/creatinine, daily weights, neuro status and patient is a fall risk - Monitor serum electrolytes, Keep serum Potassium>4 and serum Magnesium>2 and CBC - IS Received 500 ml NS at 75 ml/hr for noted dehydration with hyponatremia and deana. Appears euvolemic on exam. Notes that SOB improving. (3) Pneumonia: Code(s): J18.9 - Pneumonia, unspecified organism Status: Acute Assessment and Plan: CXR: Mild CHF Repeat CXR: No significant change Patient remains afebrile but does have a worsening leukocytosis. She notes that she always has an elevated WBC which appears true on chart review. She is endorsing right sided rib pain that is reproducible with palpation. Recent fall on 11/18 to the right side to which she states she has a rib fracture, no note of rib fracture on imaging. No noted bruising to the area. - started on CAP tx: azithromycin ceftriaxone - Viral PCR: Flu/COVID/RSV negative - CRP elevated and procal WNL - Consider ordering legionella, mycoplasma and pneumococcal - no supplemental O2 requirement - Monitor vital signs, I&Os, neuro status and patient is a fall risk - Follow WBC, serum electrolytes, temperature curves and cultures SOB improving. Continue to endorse IS use. Remains on antibiotics. (4) DEANA (acute kidney injury): Code(s): N17.9 - Acute kidney failure, unspecified Status: Acute Assessment and Plan: BUN/Cr 20/1.34, baseline WNL Possibly related to over diuresis and patient appears dehydrated on exam with dry mucous membranes Given 500 ml NS @ 75 ml/hr x1 BUN/Cr has returned to WNL. COntinue to monitor. (5) Hyponatremia: Code(s): E87.1 - Hypo-osmolality and hyponatremia Status: Acute Assessment and Plan: Na downtrending, possibly related to over diuresis Given a 500 L IV NS @ 75 ml/hr x1 Continue to monitor Na improved on am labs. (6) Iron deficiency anemia: Qualifiers: Iron deficiency anemia type: unspecified iron deficiency Qualified Code(s): D50.9 - Iron deficiency anemia, unspecified Code(s): D50.9 - Iron deficiency anemia, unspecified Status: Acute Assessment and Plan: - H/H remains at baseline 9-11, more recently 11.4 on 07/23. - transfuse if <7 Hgb 8.6 on am labs. Likely dilutional as patient received fluids. Denies any active bleeding. Continue iron supplement. Monitor. (7) Hypokalemia: Code(s): E87.6 - Hypokalemia Status: Acute Assessment and Plan: noted K 2.8- IV and po replaced- will order daily replacement as on IV lasix - monitor closely with daily labs K 3.8 on am labs. Continue to monitor. (8) COPD (chronic obstructive pulmonary disease): Onset Date: Unknown Qualifiers: COPD type: unspecified COPD Qualified Code(s): J44.9 - Chronic obstructive pulmonary disease, unspecified Code(s): J44.9 - Chronic obstructive pulmonary disease, unspecified Status: Chronic Assessment and Plan: - wheezing initially heard on prior exam, scattered. No increased sputum production. - DuoNeb scheduled - continue home inhalers No wheezing on exam. (9) Diabetes: Qualifiers: Diabetes mellitus complication status: without complication Diabetes mellitus fci insulin use: without extermination inspector use Diabetes mellitus type: type 2 Qualified Code(s): E11.9 - Type 2 diabetes mellitus without complications Code(s): E11.9 - Type 2 diabetes mellitus without complications Status: Chronic Assessment and Plan: - hypoglycemia protocol - POC blood glucose ACHS - home medication: Jardiance - correct regimen ordered - moderate dose TIDWM, based off BMI - A1C 5.8% on 11/06/24 Glucose well controlled. (10) Rheumatoid arthritis: Qualifiers: Rheumatoid arthritis location: multiple sites Rheumatoid factor presence: with rheumatoid factor Qualified Code(s): M05.79 - Rheumatoid arthritis with rheumatoid factor of multiple sites without organ or systems involvement Code(s): M06.9 - Rheumatoid arthritis, unspecified Status: Acute Assessment and Plan: - continue home medication(s) (11) Hypothyroidism (acquired): Code(s): E03.9 - Hypothyroidism, unspecified Status: Acute Assessment and Plan: - TSH 1.82 on 11/20/2024 - continue Synthroid (12) HTN (hypertension): Qualifiers: Hypertension type: primary hypertension Qualified Code(s): I10 - Essential (primary) hypertension Code(s): I10 - Essential (primary) hypertension Status: Acute Assessment and Plan: - chronic, continue home medications: Losartan 50 mg BID - blood pressures remain stable, continue to monitor Time Spent With Patient Time with patient: 25 - 35 minutes Subjective Date/time seen: 11/29/24 06:56 Interval history: 69 year old female with PMH of CHF, COPD, iron deficiency anemia, fibromyalgia, IBS, GERD, diabetes, rheumatoid arthritis, depression, anxiety, hypothyroidism, and restless leg syndrome presents to the hospital with lower extremity edema. Patient is pleasant sitting up on the side of the bed. She states that she is feeling much better today. She notes that her shortness of breath continues with ambulation however is better than yesterday. She again denies any associated cough. She states that her pain has improved. She is endorsing soft stools and notes that she typically takes Imodium at home. She denies any associated nausea/vomiting her abdominal pain. Patient does state that she has had decreased oral intake since admission. Continue to encourage patient to have fluid intake given the dehydration. She states understanding. Patient also endorsing vaginal itching stating feels similar to prior yeast infection. Given fluconazole x1. Patient has no other complaints denying chest pain and palpitations. Review of Systems Review of Systems: All systems reviewed & are unremarkable except as noted in HPI and below Exam Narrative: AF HR 95 RR 20 SPO2 95 BP 126/68 General: female in no acute respiratory distress who is nontoxic appearing, sitting up on side of bed. HEENT: Normocephalic. Atraumatic. Extraocular movement intact. Sclera clear and anicteric. No facial asymmetry. Dry mucous membranes. Chest: Lungs are diminished to the bases with mild rhonchi on auscultation bilaterally. Bruising to right clavicle. Speaking full sentences. CV: Heart was regular rate and rhythm. Abd: Abdomen was soft. Nontender. Nondistended. Positive bowel sounds. Ext: No clubbing, cyanosis, or edema. DP pulses bilaterally. Neuro: Patient is alert. Speech is clear. Objective Data Vital Signs Vital Signs: Vital Signs - 24 hr 11/28/24 07:52 11/28/24 07:52 11/28/24 08:00 Temperature Pulse Rate 97 97 Respiratory Rate 20 20 Blood Pressure Pulse Oximetry 93 Oxygen Delivery Room Air 11/28/24 08:00 11/28/24 08:20 11/28/24 12:00 Temperature Pulse Rate 97 101 H Respiratory Rate Blood Pressure Pulse Oximetry Oxygen Delivery Room Air 11/28/24 13:18 11/28/24 13:26 11/28/24 14:00 Temperature 98.6 F Pulse Rate 101 H 99 97 Respiratory Rate 20 20 16 Blood Pressure 111/52 L Pulse Oximetry 91 Oxygen Delivery 11/28/24 16:00 11/28/24 20:00 11/28/24 20:00 Temperature Pulse Rate 92 96 Respiratory Rate Blood Pressure Pulse Oximetry Oxygen Delivery Room Air 11/28/24 20:05 11/28/24 20:11 11/28/24 20:17 Temperature Pulse Rate 97 97 97 Respiratory Rate 20 20 Blood Pressure Pulse Oximetry 93 Oxygen Delivery Room Air 11/28/24 22:00 11/29/24 00:00 11/29/24 04:00 Temperature 98.5 F Pulse Rate 97 90 88 Respiratory Rate 18 Blood Pressure 114/51 L Pulse Oximetry 93 Oxygen Delivery 11/29/24 06:00 Temperature 97.4 F L Pulse Rate 98 Respiratory Rate 18 Blood Pressure 126/68 Pulse Oximetry 100 Oxygen Delivery Intake/Output Intake/Output: Intake & Output 11/26/24 11/27/24 11/28/24 11/29/24 23:59 23:59 23:59 23:59 Intake Total 1380 1280 770 Balance 1380 1280 770 Meds/Results Medications: Active Medications Generic Name Dose Route Start Last Admin Trade Name Freq PRN Reason Stop Dose Admin Acetaminophen 650 mg 11/23/24 18:02 11/29/24 05:20 Acetaminophen 325 Mg Tablet PO 650 mg Q4H PRN Administration Mild Pain (1-3) or Fever Albuterol/Ipratropium 3 ml 11/23/24 20:00 11/29/24 04:38 Ipratropium 0.5 Mg/Albuterol Sulfate 2.5 Mg Ampul.Neb 3 Ml INHALATION Not Given Q6HRT JAC Amitriptyline HCl 10 mg 11/23/24 23:30 11/28/24 20:39 Amitriptyline Hcl 10 Mg Tablet PO 10 mg QHS JAC Administration Azithromycin 500 mg 11/27/24 09:00 11/28/24 08:08 Azithromycin 500 Mg Tablet PO 500 mg DAILY JAC Administration Cyclobenzaprine HCl 10 mg 11/25/24 17:14 11/28/24 22:23 Cyclobenzaprine Hcl 10 Mg Tablet PO 10 mg TID PRN Administration Muscle Spasm Dextrose 12.5 gm 11/23/24 19:49 Dextrose 50% 25 Gm/50 Ml Syringe IV PUSH PRN PRN Hypoglycemia Protocol Diphenhydramine HCl 25 mg 11/28/24 10:51 11/28/24 22:47 Diphenhydramine Hcl Cap 25 Mg Capsule PO 25 mg Q6H PRN Administration Itching Duloxetine HCl 60 mg 11/24/24 09:00 11/28/24 08:08 Duloxetine Hcl 60 Mg Capsule.Dr PO 60 mg DAILY JAC Administration Empagliflozin 10 mg 11/24/24 09:00 11/28/24 08:08 Empagliflozin 10 Mg Tablet PO 10 mg DAILY JAC Administration Enoxaparin Sodium 40 mg 11/24/24 09:00 11/28/24 08:23 Enoxaparin 40 Mg/0.4 Ml Syringe SUB-Q 40 mg DAILY JAC Administration Ferrous Sulfate 325 mg 11/24/24 09:00 11/28/24 17:13 Ferrous Sulfate 325 Mg Tablet PO 12/24/24 08:59 325 mg BID JAC Administration Furosemide 40 mg 11/26/24 21:00 11/28/24 20:27 Furosemide 40 Mg Tablet PO Not Given Q12HR JAC Glucagon 1 mg 11/23/24 19:49 Glucagon For Inj 1 Mg Vial IM PRN PRN Hypoglycemia Protocol Glucose 15 gm 11/23/24 19:49 Glucose Oral Gel 15 Gm Of Glucse In 37.5 Gm Tube PO PRN PRN Hypoglycemia Protocol Dextrose 1,000 mls @ 100 mls/hr 11/23/24 19:49 Dextrose 5% 1,000 Ml IVPB PRN PRN Hypoglycemia Protocol Ceftriaxone Sodium 1 gm/ 50 mls @ 100 mls/hr 11/26/24 14:00 11/28/24 13:37 Sodium Chloride IVPB Infused Q24H JAC Infusion Insulin Aspart 3 - 6 units 11/24/24 08:00 11/28/24 17:13 Insulin Aspart (*Bkc) 100 Units/Ml SUB-Q Not Given TIDWM JAC Protocol Levothyroxine Sodium 75 mcg 11/24/24 06:30 11/29/24 05:20 Levothyroxine Sodium 75 Mcg Tablet PO 75 mcg DAILY@0630 JAC Administration Lidocaine 1 patch 11/26/24 09:00 11/28/24 08:24 Lidocaine 5% Patch TRANSDERM 1 patch DAILY JAC Administration Loratadine 10 mg 11/24/24 09:00 11/28/24 08:08 Loratadine 10 Mg Tablet PO 10 mg QAM JAC Administration Losartan Potassium 50 mg 11/24/24 09:00 11/28/24 20:26 Losartan Potassium 50 Mg Tablet PO Not Given Q12HR JAC Magnesium Oxide 400 mg 11/26/24 09:00 11/28/24 08:08 Magnesium Oxide 400 Mg Tablet PO 400 mg DAILY JAC Administration Morphine Sulfate 15 mg 11/23/24 23:27 11/28/24 08:07 Morphine Sulfate (*Crx) 15 Mg Tab Ir PO 15 mg Q12H PRN Administration Pain (Scale Score 7-10) Multivitamins/Minerals 1 tablet 11/24/24 09:00 11/28/24 08:08 Multivits W-Fe,Min Chewable Tablet PO 1 tablet DAILY JAC Administration Ondansetron HCl 4 mg 11/23/24 18:02 Ondansetron Inj 4 Mg/2 Ml Vial IV PUSH Q4H PRN Nausea Pramipexole Dihydrochloride 0.25 mg 11/24/24 14:03 11/26/24 18:03 Pramipexole 0.25 Mg Tablet PO 0.25 mg TID PRN Administration Restless legs Fluticasone/Salmeterol 2 puff 11/24/24 08:00 11/28/24 20:05 Fluticasone/Salmeterol 115-21 Mcg Inhaler 1 Puff INHALATION 2 puff Q12HRT JAC Administration Tramadol HCl 50 mg 11/23/24 23:27 11/28/24 20:39 Tramadol Hcl (*Crx) 50 Mg Tablet PO 50 mg Q8H PRN Administration Pain 4-6 Umeclidinium [place] 1 puff 11/24/24 08:00 11/28/24 07:51 Umeclidinium [place] 62.5 Mcg Ellipta INHALATION 1 puff DAILYRT JAC Administration Radiology Results: ITS Impressions Venous Doppler Study 11/23/24 16:37 Impression: Negative for DVT. Chest X-Ray 11/26/24 08:59 IMPRESSION: 1. No significant change from 3 days prior. Chest CTA 11/28/24 09:53 IMPRESSION: 1. No pulmonary embolus. Sensitivity is mildly decreased by motion artifact. 2. Mild emphysema. 3. 2.7 cm part-solid nodule in right lung upper lobe with worsening from 10/30/2023 suspicious for low-grade adenocarcinoma. 4. Small right pleural effusion. Labs Labs: Laboratory Results - last 24 hr 11/28/24 11/28/24 11/28/24 07:51 08:02 11:41 WBC RBC Hgb Hct MCV MCH MCHC RDW Plt Count MPV Sodium Potassium Chloride Carbon Dioxide Anion Gap BUN Creatinine Estim Creat Clear Calc Estimated GFR Glucose POC Capillary Glucose 95 115 H Lactic Acid 1.1 Calcium Total Bilirubin AST ALT Alkaline Phosphatase Total Protein Albumin C. difficile (PCR) 11/28/24 11/28/24 11/28/24 17:08 17:53 21:21 WBC RBC Hgb Hct MCV MCH MCHC RDW Plt Count MPV Sodium Potassium Chloride Carbon Dioxide Anion Gap BUN Creatinine Estim Creat Clear Calc Estimated GFR Glucose POC Capillary Glucose 130 H 141 H Lactic Acid Calcium Total Bilirubin AST ALT Alkaline Phosphatase Total Protein Albumin C. difficile (PCR) Negative 11/29/24 04:52 WBC 13.9 H RBC 3.39 L Hgb 8.6 L Hct 28.7 L MCV 84.7 MCH 25.4 L MCHC 30.0 L RDW 16.1 H Plt Count 461 H MPV 8.9 Sodium 132 L Potassium 3.8 Chloride 94 L Carbon Dioxide 29 Anion Gap 9 BUN 21 H Creatinine 0.98 Estim Creat Clear Calc 46 Estimated GFR 56 L Glucose 118 H POC Capillary Glucose Lactic Acid Calcium 9.8 Total Bilirubin 0.3 AST 29 ALT 14 Alkaline Phosphatase 122 Total Protein 6.9 Albumin 3.6 C. difficile (PCR) Quality VTE Prophylaxis VTE prophylaxis: pharmacologic ordered
[2024-11-29] MEDS: IPRATROPIUM 0.5 MG/ALBUTEROL SULFATE 2.5 MG AMPUL.NEB 3 ML INHALATION ×3 (08:23→21:47)
[2024-11-29] MEDS: FLUTICASONE/SALMETEROL 115-21 MCG INHALER 1 PUFF 2 PUFF INHALATION ×2 (08:33→21:48)
[2024-11-29] MEDS: UMECLIDINIUM BROMIDE 62.5 MCG ELLIPTA 1 PUFF INHALATION (08:34)
[2024-11-29] MEDS: AZITHROMYCIN 500 MG TABLET PO (08:47)
[2024-11-29] MEDS: DULoxetine HCL 60 MG CAPSULE.DR PO (08:47)
[2024-11-29] MEDS: MORPHINE SULFATE (*CRX) 15 MG TAB IR PO (08:47)
[2024-11-29] MEDS: FUROSEMIDE 40 MG TABLET PO ×2 (08:47→20:15)
[2024-11-29] MEDS: MAGNESIUM OXIDE 400 MG TABLET PO (08:48)
[2024-11-29] MEDS: FERROUS SULFATE 325 MG TABLET PO ×2 (08:48→17:19)
[2024-11-29] MEDS: MULTIVITS W-FE,MIN CHEWABLE TABLET 1 TABLET PO (08:48)
[2024-11-29] MEDS: LOSARTAN POTASSIUM 50 MG TABLET PO ×2 (08:48→20:15)
[2024-11-29] MEDS: EMPAGLIFLOZIN 10 MG TABLET PO (08:48)
[2024-11-29] MEDS: LORATADINE 10 MG TABLET PO (08:48)
[2024-11-29] MEDS: ENOXAPARIN 40 MG/0.4 ML SYRINGE SUB-Q (08:54)
[2024-11-29] MEDS: LIDOCAINE 5% PATCH 1 PATCH TRANSDERM (08:54)
[2024-11-29] MEDS: diphenhydrAMINE HCl CAP 25 MG CAPSULE PO ×3 (09:29→22:23)
--- NOTE | 2024-11-29 10:37 | PC.NURSE ---
Patient is adamantly refusing her bed alarm at this time. She is alert and oriented and states she will call if she needs help.
--- NOTE | 2024-11-29 10:45 | PCNWS ---
Weekly nutritional screen. Patient is tolerating current diet with adequate intake. No weight loss reported. No nutritional needs at this time.
[2024-11-29] MEDS: FLUCONAZOLE 150 MG TABLET PO (12:58)
[2024-11-29] MEDS: cefTRIAXone 1 GM in SODIUM CHLORIDE 0.9% IV 50 ML 100 ML IVPB (13:02)
--- NOTE | 2024-11-29 19:55 | PC.NURSE ---
Pt qualified for a bed alarm, but patient is adamantly refusing to have the alarm on. Pt made multiple rude comments to NIGHT GUARD with family present in the room. Pt educated, and still refuses alarm. Family was present when recorder helper gravity prospecting Cailin re-iterated the bed alarm policy and pt is still refusing.
[2024-11-29] MEDS: traMADol HCL (*CRX) 50 MG TABLET PO (20:15)
[2024-11-29] MEDS: AMITRIPTYLINE HCL 10 MG TABLET PO (20:15)
--- NOTE | 2024-11-29 20:25 | PC.NURSE ---
Scow Hand called to bedside as patient is being disrespectful to staff. Patient denies any issues at this time, but refuses to have the bed alarm activated. Patient was educated by nurse, as well as,telegraphic typewriter operator chief to the risk of falls. Patient verbalized refusal multiple times and acknowledge the risk associated with not using the call light to call for assistance. Patient verbalized she would call for assistance before getting out of bed.
[2024-11-30] VITALS (9 sets, daily range): BP systolic 130; BP diastolic 54; PULSE 83–105; RESP 18–20; TEMP 36.1; O2SAT 94
[2024-11-30] MEDS: ACETAMINOPHEN 325 MG TABLET 650 MG PO (02:26)
[2024-11-30] MEDS: CYCLOBENZAPRINE HCL 10 MG TABLET PO (03:19)
[2024-11-30] MEDS: IPRATROPIUM 0.5 MG/ALBUTEROL SULFATE 2.5 MG AMPUL.NEB 3 ML INHALATION ×2 (03:35→08:21)
[2024-11-30 05:28] LABS: Hematocrit 29.4 % (37.0-47.0); Hemoglobin 8.8 g/dL (12.0-15.0); Mean Corpuscular HGB Conc 29.9 g/dl (32-36); Mean Corpuscular Hemoglobin 25.6 pg (26-34); Mean Corpuscular Volume 85.5 fl (80-100); Platelet Count Result 504 k/mm3 (150-375); Red Blood Count 3.44 M/mm3 (4.2-5.4); White Blood Count 13.4 K/mm3 (4.5-10.0)
[2024-11-30] MEDS: LEVOTHYROXINE SODIUM 75 MCG TABLET PO (05:46)
[2024-11-30 05:51] LABS: Alanine Aminotransferase 15 U/L (6-35); Albumin Level 3.7 g/dL (3.5-5.1); Alkaline Phosphatase 119 U/L (38-126); Anion Gap 8 mmol/L (4-12); Aspartate Amino Transferase 31 U/L (14-36); Bilirubin,Total 0.2 mg/dL (0.2-1.3); Blood Urea Nitrogen 13 mg/dL (7-17); Calcium 9.6 mg/dL (8.4-10.2); Carbon Dioxide 29 mmol/L (22-30); Chloride 95 mmol/L (98-107); Estimated CRCL calculation 51 ml/min; Estimated Glomerular Filt Rate > 60; Glucose 112 mg/dL (65-110); Potassium 3.5 mmol/L (3.4-5.0); Sodium 132 mmol/L (137-145); Total Protein 7.2 g/dL (6.3-8.2)
[2024-11-30] MEDS: UMECLIDINIUM BROMIDE 62.5 MCG ELLIPTA 1 PUFF INHALATION (08:28)
[2024-11-30] MEDS: AZITHROMYCIN 500 MG TABLET PO (09:45)
[2024-11-30] MEDS: ENOXAPARIN 40 MG/0.4 ML SYRINGE SUB-Q (09:46)
[2024-11-30] MEDS: EMPAGLIFLOZIN 10 MG TABLET PO (09:46)
[2024-11-30] MEDS: FUROSEMIDE 40 MG TABLET PO (09:46)
[2024-11-30] MEDS: LOSARTAN POTASSIUM 50 MG TABLET PO (09:46)
[2024-11-30] MEDS: DULoxetine HCL 60 MG CAPSULE.DR PO (09:46)
[2024-11-30] MEDS: MAGNESIUM OXIDE 400 MG TABLET PO (09:46)
[2024-11-30] MEDS: MULTIVITS W-FE,MIN CHEWABLE TABLET 1 TABLET PO (09:46)
[2024-11-30] MEDS: LIDOCAINE 5% PATCH 1 PATCH TRANSDERM (09:46)
[2024-11-30] MEDS: FERROUS SULFATE 325 MG TABLET PO (09:46)
[2024-11-30] MEDS: LORATADINE 10 MG TABLET PO (09:46)
[2024-11-30] MEDS: traMADol HCL (*CRX) 50 MG TABLET PO (09:52)
[2024-11-30] MEDS: FLUTICASONE/SALMETEROL 115-21 MCG INHALER 1 PUFF 2 PUFF INHALATION (10:19)
--- NOTE | 2024-11-30 10:37 | P.DS_ITS ---
DS: Admitting Diagnosis Discharge Date 11/30/2024 Admitting Diagnosis leukocytosis acute exacerbation chf pneumonia deana hyponatremia iron deficiency anemia copd diabetes RA hypothyroidism htn DS: Discharge Diagnosis Discharge Diagnosis (1) Leukocytosis: Code(s): D72.829 - Elevated white blood cell count, unspecified Status: Acute (2) Acute exacerbation of CHF (congestive heart failure): Qualifiers: Heart failure type: unspecified Qualified Code(s): I50.9 - Heart failure, unspecified Code(s): I50.9 - Heart failure, unspecified Status: Acute (3) Pneumonia: Code(s): J18.9 - Pneumonia, unspecified organism Status: Acute Assessment and Plan: (4) DEANA (acute kidney injury): Code(s): N17.9 - Acute kidney failure, unspecified Status: Acute (5) Hyponatremia: Code(s): E87.1 - Hypo-osmolality and hyponatremia Status: Acute (6) Iron deficiency anemia: Qualifiers: Iron deficiency anemia type: unspecified iron deficiency Qualified Code(s): D50.9 - Iron deficiency anemia, unspecified Code(s): D50.9 - Iron deficiency anemia, unspecified Status: Acute (7) Hypokalemia: Code(s): E87.6 - Hypokalemia Status: Acute (8) COPD (chronic obstructive pulmonary disease): Onset Date: Unknown Qualifiers: COPD type: unspecified COPD Qualified Code(s): J44.9 - Chronic obstructive pulmonary disease, unspecified Code(s): J44.9 - Chronic obstructive pulmonary disease, unspecified Status: Chronic (9) Diabetes: Qualifiers: Diabetes mellitus complication status: without complication Diabetes mellitus chcf insulin use: without intermediate project manager use Diabetes mellitus type: type 2 Qualified Code(s): E11.9 - Type 2 diabetes mellitus without complications Code(s): E11.9 - Type 2 diabetes mellitus without complications Status: Chronic (10) Rheumatoid arthritis: Qualifiers: Rheumatoid arthritis location: multiple sites Rheumatoid factor presence: with rheumatoid factor Qualified Code(s): M05.79 - Rheumatoid arthritis with rheumatoid factor of multiple sites without organ or systems involvement Code(s): M06.9 - Rheumatoid arthritis, unspecified Status: Acute (11) Hypothyroidism (acquired): Code(s): E03.9 - Hypothyroidism, unspecified Status: Acute (12) HTN (hypertension): Qualifiers: Hypertension type: primary hypertension Qualified Code(s): I10 - Essential (primary) hypertension Code(s): I10 - Essential (primary) hypertension Status: Acute DS: Summary Hospital Course Reason for hospitalization: leukocytosis acute exacerbation chf pneumonia deana hyponatremia iron deficiency anemia copd diabetes RA hypothyroidism htn Hospital Course: 69 year old female with PMH of CHF, COPD, iron deficiency anemia, fibromyalgia, IBS, GERD, diabetes, rheumatoid arthritis, depression, anxiety, hypothyroidism, and restless leg syndrome presents to the hospital with lower extremity edema and shortness of breath. Patient Reported a recent increase in her Lasix PO from 20 mg to 40 mg a few weeks ago with no improvement. BNP elevated. Chest XR showing mild CHF. US BLE negative for DVT. Most recent echo, OSH (08/2024) showed normal LV systolic function, estimated EF 65%, valvular disease noted her. Patient started on IV lasix with improvement. Prior to discharge patient was transitioned back to oral lasix 40 mg BID. Discussed with patient that she needs to remain on a cardiac diet, obtain daily weights, and follow up with cardiology as scheduled. She states understanding. During admission patient was noted to have a worsening leukocytosis. Viral panel negative. Repeat CXR showed no significant change.Chest CTA showed no PE, mild emphysema and a solid nodule in right lung upper lobe, and small right pleural effusion. Started on IV antibiotics for potential pneumonia, transitioned to oral antibiotics at time of discharge. Patient was endorsing diarrhea, C diff was negative. Patient was also given IV fluids as concern for dehydration causing leukocytosis given diuresed, hyponatremic and noted diarrhea. Significant improvement in leukocytosis following fluids. Patient developed an DEANA and hyponatremia during admission likely related to hypovolemia from diuresis and diarrhea. Recieved IV fluids and both resolved. At time of discharge patient states that she feels back to her baseline function. She denies any chest pain, shortness a breath, palpitations, nausea/vomiting, abdominal pain. Patient discharged home with home health in a stable condition. She is to follow up with her primary care provider in 1 week and Cardiology as scheduled. Status at Discharge Functional status at discharge: uses cane/walker Time Spent with Patient Time attestation: Total time spent providing and/or coordinating discharge services: Time spent: Greater than 30 minutes Exam Narrative: AF HR 89 RR 20 Spo2 94 BP 130/54 General: female in no acute respiratory distress who is nontoxic appearing, sitting up on side of bed. HEENT: Normocephalic. Atraumatic. Extraocular movement intact. Sclera clear and anicteric. No facial asymmetry. Dry mucous membranes. Chest: Lungs are clear throughout with very mild diminishment to the bases on auscultation bilaterally. Bruising to right clavicle. Speaking full sentences. CV: Heart was regular rate and rhythm. Abd: Abdomen was soft. Nontender. Nondistended. Positive bowel sounds. Ext: No clubbing, cyanosis. Trivial lower extremity edema to the bilateral ankles. DP pulses bilaterally. Neuro: Patient is alert. Speech is clear. DS: Data Data Completed and Pending Completed studies during hospitalization: Chest CTA Chest XR Venous doppler Chest XR Labs on day of discharge: Labs from last 24 hours 11/30/24 11/30/24 11/29/24 07:47 04:26 19:40 WBC 13.4 H RBC 3.44 L Hgb 8.8 L Hct 29.4 L MCV 85.5 MCH 25.6 L MCHC 29.9 L RDW 16.2 H Plt Count 504 H MPV 9.1 Sodium 132 L Potassium 3.5 Chloride 95 L Carbon Dioxide 29 Anion Gap 8 BUN 13 D Creatinine 0.87 Estim Creat Clear Calc 51 Estimated GFR > 60 Glucose 112 H POC Capillary Glucose 103 133 H Calcium 9.6 Total Bilirubin 0.2 AST 31 ALT 15 Alkaline Phosphatase 119 Total Protein 7.2 Albumin 3.7 Discharge Plan Discharge Attending physician on discharge: Rima Harris Consulting providers: Melina Madera; Mary Ventura Discharging Clinician: Mary Ventura Anticipated Discharge Date/Time: 11/30/24 10:19 Patient Disposition: Home with Home Health Service Activity: as tolerated Diet: as tolerated, heart healthy and diabetic Discharge Instructions: Discharge disposition: Patient admitted to the hospital for a CHF exacerbation Take medications as prescribed Lasix 40 mg daily Maintain a cardiac diet, 2 g sodium, do not over hydrate However during admission patient was noted to be dehydrated Maintain adequate fluid intake of about 1.5-2 L per day Remain active Monitor urine output Daily weights, if you gain more than 3 lb within 1 day or 5 lb in 1 week notify your primary care provider Follow up with your accounts specialist as scheduled During admission patient diagnosed with pneumonia Continue antibiotics to complete the course Augmentin twice a day, 12/02 Azithromycin daily, course to be completed on 12/01 Attached information on these medications Monitor blood pressures Take caution while standing, rising, or moving Change positions slowly taking a break between each position change If you standing feel dizzy sit back down and take a break Per Care Coordination. Patient to have [facility] for RN/PT/OT eval and treat [phone]. RN please fax discharge instructions to: [phone]. Encouraged to continue with yearly vaccinations Return to the emergency department if he developed sudden shortness of breath, chest pain, nausea, vomiting, upset stomach or intractable diarrhea Return to the emergency department if you develop fever greater than 100.5 Follow-up with the primary care physician within 1-2 weeks Thank you for choosing [facility] for your healthcare needs Patient Instructions: Antibiotic Form, Amoxicillin/Clavulanate Potassium (By mouth), Azithromycin (By mouth), Heart Failure (DC), Low-Sodium Diet (DC), Pneumonia (DC) Patient Language: Thai Stand Alone Forms: General Discharge Information Follow-up/Referrals: Luis,Dallin Boyd MD [Primary Care Provider] - 1 Week Discharge Medications: New magnesium oxide 400 mg (241.3 mg magnesium) Tablet 400 mg PO DAILY Qty: 20 0RF azithromycin 500 mg Tablet 500 mg PO DAILY Qty: 1 0RF amoxicillin-pot clavulanate 875-125 mg tablet 1 tablet PO Q12H Qty: 6 0RF Continued levothyroxine [Synthroid] 75 mcg tablet 75 mcg PO DAILY Qty: 90 1RF cyclobenzaprine 10 mg tablet 10 mg PO DAILY PRN (Reason: muscle spasm) albuterol sulfate 2.5 mg /3 mL (0.083 %) solution for nebulization 2.5 mg inhalation Q4-6H PRN (Reason: shortness of breath or wheezing) Qty: 90 3RF albuterol sulfate 90 mcg/actuation HFA aerosol inhaler 2 inh inhalation Q4H PRN (Reason: shortness of breath or wheezing) Qty: 8.5 6RF Spiriva Respimat 2.5 mcg/actuation mist 2 inh inhalation QAM Qty: 4 5RF duloxetine [Cymbalta] 60 mg capsule,delayed release(DR/EC) 60 mg PO DAILY morphine 15 mg tablet 15 mg PO Q12H PRN (Reason: Pain (Scale Score 7-10)) tramadol 50 mg tablet 50 mg PO Q8H PRN (Reason: pain) losartan 50 mg tablet 50 mg PO BID Jardiance 10 mg tablet 10 mg PO DAILY acetaminophen 500 mg capsule 500 mg PO TID PRN (Reason: pain (scale score 4-6)) cetirizine 10 mg tablet 10 mg PO DAILY ferrous sulfate [Feosol] 325 mg (65 mg iron) tablet 325 mg PO BID calcium phos,dibas-vitamin D3 77-400 mg-unit tablet 1 tablet PO DAILY Centrum Adult 50 Plus 80 mcg tablet,chewable 1 tablet PO DAILY amitriptyline 10 mg tablet 10 mg PO QHS Qty: 90 3RF pramipexole 0.25 mg tablet See Rx Instructions .ROUTE .COMPLEX Qty: 270 2RF Dose Instruction: TAKE 1 TABLET BY MOUTH THREE TIMES A DAY *MAY BE TAKEN 1 TAB IN THE MORNING AND 2 TABS AT BEDTIME Rx Instructions: TAKE 1 TABLET BY MOUTH THREE TIMES A DAY *MAY BE TAKEN 1 TAB IN THE MORNING AND 2 TABS AT BEDTIME budesonide-formoterol 160-4.5 mcg/actuation HFA aerosol inhaler 2 puff inhalation Q12H Qty: 10.2 6RF ondansetron HCl 4 mg tablet 4 mg PO Q8H PRN (Reason: nausea and vomiting) Qty: 30 0RF Changed furosemide 20 mg tablet 40 mg PO BID Qty: 20 0RF Held spironolactone 25 mg tablet 25 mg PO DAILY Hold Instructions: Resume on 12/11/24. Hold until follow up with cardiology as per patient she has recently been stopped on this medication Date of admission: 11/25/24 16:10 Primary Care Provider: LuisDallin Admitting Provider: Mickey Miller Attending physician on admission: Mickey Miller Condition: Stable Hospitalist MIPS Heart Failure (Exclusion) Patient has history of Heart Transplant or Left Ventricular Assistive Device?: No IF YES, STOP HERE Heart Failure (Qualifier) Patient has current or prior documentation of LVEF less than or equal to 40%, or mod/servere depressed LVSF?: No IF NO, STOP HERE
== END 2024-11-30 13:15 | disposition home health service (06) | DRG 291 ==
LOC: ANHED 18:24 → ANH2MED 18:59
PROVIDERS: Emergency Medicine; Internal Medicine; Nurse Practitioner; Student in an Organized Health Care Education/Training Program; Admitting Provider Family Medicine; Emergency Provider Physician Assistant; PCP Internal Medicine; Visit Provider Student in an Organized Health Care Education/Training Program
DX: I11.0 Hypertensive heart disease with heart failure (principal); I50.33 Acute on chronic diastolic (congestive) heart failure; J18.9 Pneumonia, unspecified organism; N17.9 Acute kidney failure, unspecified; J44.0 Chronic obstructive pulmonary disease with (acute) lower respiratory infection; D50.9 Iron deficiency anemia, unspecified; E11.42 Type 2 diabetes mellitus with diabetic polyneuropathy; E87.6 Hypokalemia; E03.9 Hypothyroidism, unspecified; K58.9 Irritable bowel syndrome, unspecified; K57.30 Diverticulosis of large intestine without perforation or abscess without bleeding; M48.061 Spinal stenosis, lumbar region without neurogenic claudication; M79.7 Fibromyalgia; M05.79 Rheumatoid arthritis with rheumatoid factor of multiple sites without organ or systems involvement; G25.81 Restless legs syndrome; K21.9 Gastro-esophageal reflux disease without esophagitis; R07.89 Other chest pain; F32.A Depression, unspecified; F41.9 Anxiety disorder, unspecified; Z20.822 Contact with and (suspected) exposure to COVID-19; Z87.891 Personal history of nicotine dependence; Z91.81 History of falling
CPT/HCPCS: 36415; 71045; 71046; 71275; 80048; 80053; 81001; 82948; 83605; 83735; 83880; 84132; 84145; 84484; 85025; 85027; 85610; 85730; 86140; 87040; 87045; 87046; 87427; 87493; 87637; 93005; 93970; 94640; 96365; 96366; 96367; 96375; 96376; 97110; 97116; 97161; 97165; 97530; 99285; A9270; G0378; J0690; J0696; J1650; J1938; J3480; J7040; P9047; Q9967